=== PATIENT | male | born 1945 | race Caucasian/White ===

== ENCOUNTER 2017-08-03 20:20 | Observation (INO) | payer OTHER, MEDICARE, SELFPAY ==
[2016-12-24 11:34] VITALS: BMI 28.1
[2017-08-03 20:25] VITALS: BP 121/77; PULSE 67; RESP 18; TEMP 36.6; O2SAT 96; BMI 30.1
--- NOTE | 2017-08-03 21:11 | RAD_ITS ---
STUDY: X-RAY CHEST REASON FOR EXAM: Male, 72 years old. COPD. Decreased heart rate TECHNIQUE: Single AP portable view of the chest. COMPARISON: September 20, 2016 FINDINGS: There are monitoring devices. There are interstitial fibrotic changes of the lungs. Right perihilar opacity .There is pleural fibrotic scarring of the left costophrenic angle. Normal size heart. Normal mediastinum and tessa. Normal visualized pulmonary arteries. There is atherosclerotic tortuosity of the aortic arch and descending thoracic aorta. There are diffuse degenerative changes of the visualized thoracic spine. Stable healed rib fractures. There is no demonstrated abnormality of the visualized soft tissue structures of the upper abdomen. RAD/Chest 1 View (Portable) IMPRESSION: Fibrotic densities with right perihilar infiltrate. Electronically Signed: Jesús Rangel MD at 22:05 EST , Service support ,
--- NOTE | 2017-08-03 21:11 | EKG12_ITS ---
Test Reason : HR Blood Pressure : / mmHG Vent. Rate : 067 BPM Atrial Rate : 067 BPM P-R Int : 164 ms QRS Dur : 100 ms QT Int : 446 ms P-R-T Axes : 032 002 026 degrees QTc Int : 471 ms Normal sinus rhythm Normal ECG Confirmed by NIRMAL BUSH MD ([id number]), visual effects editor DELORES JONES ([id number]) on 08/09/2017 3:56:19 PM Referred By: Confirmed By:NIRMAL BUSH MD
[2017-08-03 21:20] LABS: Absolute Lymphocyte Count 1.52 X10^3/ul (0.83-4.51); Absolute Neutrophil Count 5.1 X10^3/uL (2.0-7.7); Basophil# 0.02 X10^3/uL; Basophil% 0.3 % (0-1); Eosinophil# 0.12 X10^3/uL; Eosinophils% 1.6 % (0-5); Hematocrit 37.3 % (40-54); Hemoglobin 12.3 g/dl (13.0-16.5); Lymphocyte # 1.52 X10^3/ul (4.0); Lymphocyte % 20.8 % (19-41); Mean Corpuscular Hgb 31.9 pg (27.0-32.0); Mean Corpuscular Volume 96.6 fL (80-94); Mean Platelet Vol. 9.9 fl (6.2-12.0); Monocyte# 0.51 X10^3/uL; Neutrophil # 5.12 X10^3/uL (2.7-7.7); Neutrophil % 70.2 % (47-70); POSITIVE COUNT NO; POSITIVE DIFFERENTIAL NO; POSITIVE MORPHOLOGY NO; Platelet Count 124 K/mm3 (150-450); RBC Distribution Width CV 13.9 % (11.6-14.6); RBC Distribution Width SD 48.4 fl (35.1-43.9); Red Blood Count 3.86 M/mm3 (4.6-6.2); White Blood Count 7.3 K/mm3 (4.4-11.0)
[2017-08-03 21:38] LABS: Anion Gap 7 (5-15); BUN 17 mg/dL (7-18); BUN/Creat Ratio 14.5 RATIO (10-20); Calcium,Total 8.9 mg/dL (8.5-10.1); Chloride 109 mmol/L (98-107); Creatinine, Serum 1.17 mg/dL (0.70-1.30); EST Glomerular Filtration Rate 65 mL/min (>60); Est Glom Filt Rate - Afr Amer 79 mL/min (>60); Estimated Creatinine Clearance 59.79 ml/min; Glucose 180 mg/dL (70-110); Magnesium 1.8 mg/dL (1.6-2.6); Potassium 4.2 mmol/L (3.5-5.1); Sodium Level 144 mmol/L (136-145)
--- NOTE | 2017-08-03 22:07 | ED.VISSUMM ---
- ER Visit Summary Date of Service: 08/03/17 Chief Complaint: Bradycardia History of Present Illness: The patient is a 72 M who has a history of lung cancer as well as A. fib. He has 5 cardiac stents and he sees Dr. Brady. Patient was feeling his normal self. He went to the bathroom and urinated standing up. He then shaved for about 10-15 minutes. This is a little bit longer than he is normally on his feet at a time. Patient came out of the bathroom and was very lightheaded. He needed assistance walking and eventually sat in a chair. His spouse put a heart rate/pulse oximetry on him his heart rate read 35. There is shocked by this number change the batteries and try different fingers. It eventually resolved. During this time he had no chest pain sweating or pale coloring. He was able to ambulate on his own to the car to come here. Patient takes amiodarone, 100 mg of metoprolol twice a day, Plavix and aspirin for his cardiac meds. Physical Examination: Afebrile vital signs are stable Gen: Well-nourished well-developed Head: Normocephalic atraumatic Eyes: Perrl EOMI ENT: TMs clear no rhinorrhea moist mucous membranes Neck: Supple no lymphadenopathy no JVD nontender CVS: Regular rate rhythm no murmurs normal S1-S2 Respiratory: No distress clear to auscultation bilaterally chest nontender Abdomen: Soft nontender nondistended normal bowel sounds no masses Back: Nontender Extremity: Nontender no edema Skin: Normal color no rash Neuro: alert orientated ?3 CN II-XII intact normal strength sensation reflexes gait cerebellar Psych: Normal affect normal mood Test Results: Hemoglobin 12.3. Magnesium 1.8. Normal potassium. Troponin less than 0.02. EKG sinus rhythm with a rate of 67. Chest x-ray negative. Emergency Department Course and Treatment: The patient has had no events on the monitor. I spoke with Dr. Newman for cardiology who would like the patient observed overnight. Impression: 1. Bradycardia This note was generated with [employer] dictation software. It may contain incorrect words, spelling, and punctuation that were not noted in review of the chart prior to signing ED Disposition - Plan for ED Patient: Chief Complaint: Dizziness Referrals: Rogelio Green DO [Primary Care Provider] -
[2017-08-03 22:36] VITALS: BP 113/70; PULSE 69; RESP 16; O2SAT 94
--- NOTE | 2017-08-03 22:46 | PCM.HP.STD ---
Problem List (1) Bradycardia Status: Acute (2) Lightheadedness Status: Acute History of Present Illness Date of Admission: 08/03/17 Chief Complaint: Bradycardia, lightheadedness The patient is a 72 year old M who was seen in the emergency room at [facility] after being brought in for evaluation of bradycardia at home. Patient has a pulse oximeter at home and his noticed that he was feeling lightheaded and tired, she took his pulse with the pulse oximeter and it read 35, she change the batteries in the pulse oximeter and even tried it on herself and it gave a different reading and she felt that the 35 reading was legitimate. Patient's and the patient stated that this went on for about 15 minutes with a pulse rate of approximately 35 and then it dea to 66. Patient denied any chest pain or shortness of breath, he denied any nausea or diaphoresis. Examination in the emergency room included an EKG which showed normal sinus rhythm at 67, no evidence of ischemic changes were noted. Patient had labs drawn, labs were unremarkable except for glucose of 180 and a hemoglobin of 12.3. On examination, heart rate and rhythm is regular with occasional ectopic beats-these corresponded to PACs on the monitor, lungs had scattered expiratory rhonchi bilaterally. Patient did not appear to be in distress. Cardiology was contacted by the emergency room physician and he advised admission of the patient for further observation. Patient will be placed in observation status on PCU for bradycardia, his metoprolol will be reduced to 50 mg twice daily at the advice of cardiology. Past Medical History Past Medical History (Chronic Problems): Chronic Problems Encephalopathy (Chronic) Small cell lung cancer (Chronic) History of coronary artery stent placement (Chronic) Coronary artery disease (Chronic) Status post stents. GERD (gastroesophageal reflux disease) (Chronic) Obesity (BMI 30-39.9) (Chronic) Smoking addiction (Chronic) HTN (hypertension) (Chronic) Allergies No Known Allergies Allergy (Verified 08/03/17 20:25) Home Medications: Ambulatory Orders Medication Instructions Recorded Aspirin E.C. [Ecotrin] 81 mg PO DAILY@0800 04/11/16 Simvastatin [Zocor] 20 mg PO QHS 04/11/16 Nitroglycerin [Nitrostat] 0.4 mg SUBLINGUAL PRN PRN 04/21/16 Amiodarone HCl [Cordarone] 200 mg PO DAILY 04/27/16 Metoprolol Tartrate [Lopressor 100 mg PO BID 06/22/16 (beta darius)] Albuterol Inhaler [Ventolin Hfa] 1 - 2 puff INHALATION Q4H PRN PRN 07/08/16 Multivit-Min/FA/Lycopen/Lutein 1 each PO DAILY 10/14/16 [Centrum Silver Tablet] Ranitidine HCl [Acid Milk Tester] 150 mg PO BID 10/14/16 Clopidogrel Bisulfate [Plavix] 75 mg PO DAILY 12/14/16 Surgical History: appendectomy, - - Cardiac stents. Psychiatric History: No pertinent psych hx Lives: Spouse/ Significant Other Smoking Status: Former smoker Tobacco Use: Non-smoker Alcohol: None Drugs: None - *Family History Maternal History Items: Cancer - Lung cancer Paternal History Items: Heart Disease Sibling History Items: Diabetes Review of Systems Constitutional: Denies: Anorexia, Chills, Fever, Night Sweats, Malaise, Weakness, Weight Change, Fatigue Eyes: Denies: Blurred vision, Cataracts, Conjunctivae Inflammation, Double vision, Drainage HEENT: Denies: Difficulty Swallowing, Dysphasia, Ear Pain, Eye Pain, Hard of Hearing, Head Aches, Hearing Changes, Nasal bleeding, Nasal Congestion, Post Nasal Drip Cardiovascular: Reports: Light Headedness. Denies: Chest Pain, Claudication, Chest Pressure, Chest Tightness, Edema, Heaviness, Orthopnea, Palpitations, Paroxysmal Noc. Dyspnea, Syncope Respiratory: Denies: Cough, Hemoptysis, Pleuritic Pain, Shortness of Breath, Shortness of breath at rest, Shortness of breath upon exertion, Sputum production, Wheezing Gastrointestinal: Denies: Abdominal Pain, Constipation, Diarrhea, Hematemesis, Hematochezia, Nausea, Melena, Vomiting Genitourinary: Denies: Dysuria, Frequency, Hematuria, Hesitancy, Incontinence, Nocturia, Urgency Musculoskeletal: Denies: Back Pain, Foot Pain, Hand Pain, Joint Pain, Joint stiffness, Joint swelling, Joint Tenderness, Leg Pain, Neck Pain, Shoulder Pain Skin: Denies: Dryness, Jaundice, Pruritis, Rash Neurological: Denies: Blurred vision, Double vision, Change in Speech, Slurred speech, Difficulty swallowing, Focal weakness, Headaches, Incoordination, Numbness, Tingling Psychiatric: Denies: Anxiety, Depression, Homicidal Ideations, Suicidal Ideations Endocrine: Reports: Hx of Irradiation - Brain radiation for small cell carcinoma. Denies: Change in Body Habitus, Heat/ Cold Intolerance, Polydipsia, Polyuria Hematologic/ Lymphatic: Denies: Adenopathy, Easy Bruising, Easy Bleeding, Petechiae, Purpura VTE Information - Inpt Only VTE Present on Admission: No VTE Mechan Device Prophylaxis: None VTE Pharm Prophylaxis ordered?: Yes Patient Problems: Active and Suspected Problems Bradycardia (Acute) Lightheadedness (Acute) - Physical Exam General: Alert, Oriented x3, Cooperative, No apparent distress, Well developed, Well nourished HEENT: Atraumatic, PERRLA, EOMI, Normocephalic Oral: Moist Mucosa Neck: Supple, No JVD, Negative Carotid Bruits, No Nuchal Rigidity, Trachea Midline, Thyroid Normal Size and Texture Lungs: Normal air movement, No wheeze, No rales, Rhonchi - Scattered expiratory rhonchi are noted bilaterally Cardiovascular: Regular rate, Regular Rhythm, No murmurs, PMI Normal, No rub noted, No Gallop, - - Occasional PACs are noted Abdomen: Bowel Sounds Present, Soft, Non Tender, Non-Distended, No hernias noted Extremities: No clubbing, No cyanosis, No edema, Capillary Refill Less than 3 Seconds Skin: No rashes, No breakdown Musculoskeletal: No Tenderness to Palpation of Joints or Extremities Neurological: Cranial nerves II-XII grossly intact, Neuro grossly intact, Sensory exam intact to light touch and pain, Coordination normal Psych/Mental Status: Normal Affect, Appropriate, Alert and oriented to time, place, person, mood and affect Vital Signs Temp Pulse Resp BP Pulse Ox 98 F 69 16 113/70 94 08/03/17 20:25 08/03/17 22:36 08/03/17 22:36 08/03/17 22:36 08/03/17 22:36 Oxygen Delivery Method Room Air Assessment/Plan Active and Suspected Problems Bradycardia (Acute) Lightheadedness (Acute) #1 episodic bradycardia-etiology unknown, could be secondary to beta-darius usage, patient will be placed into observation status on PCU, he will be monitored on telemetry, his metoprolol dosage will be reduced, he will be seen in consultation by cardiology. I do not think the patient needs cardiac enzymes cycled, I do not think he needs an echocardiogram. #2 coronary artery disease-stable #3 PACs-patient and patient's state that he has had a history of atrial fibrillation in the past, he is not on any direct anticoagulants or Coumadin, states he was on Eliquis for a time before he had his stents put in, patient follows regularly with Dr. 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
[2017-08-03 23:10] VITALS: BMI 30.3
[2017-08-03 23:20] VITALS: BP 109/73; PULSE 72; RESP 16; TEMP 36.7; O2SAT 94
[2017-08-03 23:21] LABS: Bedside Glucose 132 mg/dL (70-110)
[2017-08-03 23:33] VITALS: PULSE 68
[2017-08-04] VITALS (13 sets, daily range): BP systolic 98–117; BP diastolic 52–82; PULSE 64–77; RESP 14–16; TEMP 36.9–37.1; O2SAT 96–98
[2017-08-04 07:36] LABS: Bedside Glucose 109 mg/dL (70-110)
[2017-08-04] MEDS: Famotidine 20 MG Tablet PO ×2 (10:00→21:16)
[2017-08-04] MEDS: Amiodarone 200 MG Tablet PO (10:00)
[2017-08-04] MEDS: Metoprolol Tartrate 50 MG Tablet PO ×2 (10:00→21:16)
[2017-08-04] MEDS: Clopidogrel Bisulfate 75 MG Tablet PO (10:00)
[2017-08-04] MEDS: Aspirin E.C. 81 MG Tablet PO (10:00)
[2017-08-04] MEDS: Heparin Injection 5,000 UNITS/ML Syringe 5000 UNITS SC ×2 (10:01→21:16)
[2017-08-04 11:51] LABS: Bedside Glucose 187 mg/dL (70-110)
--- NOTE | 2017-08-04 15:31 | PCM.PROGNOTE ---
Patient Problems: Active and Suspected Problems Bradycardia (Acute) Lightheadedness (Acute) Subjective: Pt reports that he came in because he checked his pulse at home and it was in the thirties. He thinks he may have had some lightheadedness at the time. Currently none. He has not had chest pain, tightness, pressure, palpitations, nausea, diaphoresis, or SOB. He is resting comfortably in bed with no complaints. - Physical Exam General: Alert, Oriented x3, Cooperative HEENT: Atraumatic, PERRLA, EOMI, Normocephalic Neck: Supple, No JVD, Negative Carotid Bruits Lungs: Clear to auscultation, Normal air movement Cardiovascular: Regular rate, No murmurs Abdomen: Bowel Sounds Present, Soft, Non Tender Extremities: No edema, Capillary Refill Less than 3 Seconds Skin: No rashes, No breakdown Musculoskeletal: No Tenderness to Palpation of Joints or Extremities Neurological: Cranial nerves II-XII grossly intact Psych/Mental Status: Normal Affect, Appropriate, Alert and oriented to time, place, person, mood and affect Vital Signs Temp Pulse Resp BP Pulse Ox 98.4 F 66 14 113/68 96 08/04/17 15:10 08/04/17 15:10 08/04/17 15:10 08/04/17 15:10 08/04/17 15:10 Oxygen Delivery Method Room Air Weight: 95.8 kg Body Mass Index (BMI) 30.3 Intake and Output for Last 24 Hours 08/02/17 08/03/17 08/04/17 23:59 23:59 23:59 Intake Total 360 / 360 Output Total 0 / 0 Balance 360 / 360 POC Glucose 08/04/17 08/04/17 08/03/17 11:47 07:29 23:17 POC Glucose 187 H 109 132 H Assessment/Plan Active and Suspected Problems Bradycardia (Acute) Lightheadedness (Acute) 1. Bradycardia - improved with decreased BB dose. Cardiology consult is pending. 2. PAF - not on OAC, on amio and BB 3. CAD - continue home meds, he reports 5 prior stents. On asa/plavix 4. COPD with chronic hypoxic respiratory failure - clear lungs, no resp complaints, uses 2 lpm O2 at night. 6. PMHx small cell lung cancer, last treated x 1 year ago 6. Underlying weakness in legs 2/2 radiation to the brain for above. 7. Hyperglycemia - check a1c, with cardiac hx this should be treated aggressively. DVT ppx: heparin DC planning: DC when ok per cardiology. This patient was seen by Carlin Ruiz PA-C under the supervision of Doctor Gardner.
[2017-08-04 16:21] LABS: Bedside Glucose 123 mg/dL (70-110)
[2017-08-04 16:57] LABS: Hemoglobin A1c 5.9 % (4.2-6.3)
--- NOTE | 2017-08-04 18:52 | PCM.CONS.C ---
Problem List (1) Bradycardia Status: Acute (2) Atrial fibrillation Status: Chronic Qualifiers: Atrial fibrillation type: paroxysmal Qualified Code(s): I48.0 - Paroxysmal atrial fibrillation (3) Coronary artery disease Status: Chronic Qualifiers: Coronary Disease-Associated Artery/Lesion type: [place] artery [place] vs. transplanted heart: [place] heart Associated angina: without angina Qualified Code(s): I25.10 - Atherosclerotic heart disease of [place] coronary artery without angina pectoris Comment: Status post stents. (4) History of coronary artery stent placement Status: Chronic (5) HLD (hyperlipidemia) Status: Chronic Qualifiers: Hyperlipidemia type: unspecified Qualified Code(s): E78.5 - Hyperlipidemia, unspecified (6) HTN (hypertension) Status: Chronic Qualifiers: Hypertension type: essential hypertension Qualified Code(s): I10 - Essential (primary) hypertension (7) COPD (chronic obstructive pulmonary disease) Status: Chronic (8) Small cell lung cancer Status: Chronic Qualifiers: Laterality: right Qualified Code(s): C34.91 - Malignant neoplasm of unspecified part of right bronchus or lung Reason for Consult Date of Consultation: 08/04/17 History of Present Illness: The patient is a 72 year old white male with a past cardiovascular history which is included underlying paroxysmal atrial fibrillation, CAD, status post previous PTCA/stent to the LAD, diagonal branch, and RCA (2010 at [facility]), and status post PTCA/stent/BETO to the diagonal branch at [facility] (2017), hyperlipidemia, hypertension, COPD, superimposed upon lung carcinoma who now presents for evaluation of bradycardia. The patient states that he had been feeling fine at home. He has denied ongoing symptoms of angina pectoris or symptoms of acute CHF/pulmonary edema. He denies any ongoing palpitations, rapid heart rate sensations, near syncope or syncope. He states that he does have intermittent wheezing which improves with his respiratory therapy. He does sleep a great deal according to his spouse. Yesterday evening she noted that he seemed somewhat off balance . She was checking his vital signs. She noted his heart rate appeared to be in the 30-40 bpm range. He subsequently was up and ambulating and his heart rate appeared to improve. However upon resting it returned to the 30-40 bpm range. He denies any clear-cut symptoms associated with this. He was brought to the [facility] emergency department for evaluation. Based upon his evaluation there was no definitive bradycardia reported. He was noted to be in sinus rhythm with premature atrial complexes. His troponin I level was negative. His ECG demonstrated sinus rhythm with poor R-wave progression with no acute ECG changes. He was subsequently placed in the PCU for further evaluation and care. His medications were adjusted during this time to decrease the dose of his beta-darius therapy. He has remained in sinus rhythm with ventricular rates in the 60s. He denies any ongoing acute symptoms. [] Past Medical History Allergies/Adverse Reactions: Allergies No Known Allergies Allergy (Verified 08/03/17 20:25) Home Medications: Ambulatory Orders Medication Instructions Recorded Aspirin E.C. [Ecotrin] 81 mg PO DAILY@0800 04/11/16 Simvastatin [Zocor] 20 mg PO QHS 04/11/16 Nitroglycerin [Nitrostat] 0.4 mg SUBLINGUAL PRN PRN 04/21/16 Amiodarone HCl [Cordarone] 200 mg PO DAILY 04/27/16 Metoprolol Tartrate [Lopressor 100 mg PO BID 06/22/16 (beta darius)] Albuterol Inhaler [Ventolin Hfa] 1 - 2 puff INHALATION Q4H PRN PRN 07/08/16 Multivit-Min/FA/Lycopen/Lutein 1 each PO DAILY 10/14/16 [Centrum Silver Tablet] Ranitidine HCl [Acid Solder Level[employer]] 150 mg PO BID 10/14/16 Clopidogrel Bisulfate [Plavix] 75 mg PO DAILY 12/14/16 Past Medical History (Chronic Problems): Chronic Problems Encephalopathy (Chronic) Atrial fibrillation (Chronic) HLD (hyperlipidemia) (Chronic) Small cell lung cancer (Chronic) History of coronary artery stent placement (Chronic) Coronary artery disease (Chronic) Status post stents. GERD (gastroesophageal reflux disease) (Chronic) Obesity (BMI 30-39.9) (Chronic) Smoking addiction (Chronic) COPD (chronic obstructive pulmonary disease) (Chronic) HTN (hypertension) (Chronic) Surgical History: appendectomy, - - Cardiac stents. Psychiatric History: No pertinent psych hx - *Family History Maternal History Items: Cancer - Lung cancer Paternal History Items: Heart Disease Sibling History Items: Diabetes Lives: Spouse/ Significant Other Smoking Status: Former smoker Tobacco Use: Non-smoker Alcohol: None Drugs: None Review of Systems - Review of Systems General: Denies: Fever, Night Sweats, Fatigue Cardiovascular: Denies: Chest Discomfort, Shortness of Breath, Orthopnea, PND, Peripheral Edema, Palpitations, Lightheadedness, Dizziness, Near Syncope, Syncope Respiratory: Reports: Wheezing. Denies: Cough, Sputum Production, Hemoptysis Gastrointestinal: Denies: Hematemesis, Hematochezia, Melena Genitourinary: Denies: Dysuria, Hematuria Skin: Denies: Rash Subjectve: This is a 72-year-old white male who appears to be resting comfortably at the moment in no acute distress. Objective: Vital Signs Temp Pulse Resp BP Pulse Ox 98.4 F 66 14 113/68 96 08/04/17 15:10 08/04/17 15:10 08/04/17 15:10 08/04/17 15:10 08/04/17 15:10 Oxygen Delivery Method Room Air Weight: 211 lb 3.245 oz Body Mass Index (BMI) 30.3 Intake and Output for Last 24 Hours 08/02/17 08/03/17 08/04/17 23:59 23:59 23:59 Intake Total 720 / 720 Output Total 0 / 0 Balance 720 / 720 General: Awake, Alert, Oriented x 3, Cooperative, No Acute Distress Neck: No JVD Lungs: Inspiratory Wheezes - Manuel, Expiratory Wheezes-Manuel Cardiovascular: Regular Rhythm, Premature Ectopic Beats, Normal S1, Normal S2 Abdomen: Bowel Sounds Present, Soft, Non Tender Extremities: No Cyanosis, No Clubbing, No edema Rhythm: Sinus rhythm; PACs EKG: As noted above ECHO: 04/13/2016: Left ventricle: Normal with an LVEF of 65% Stress Test: 11/26/2015: Stress nuclear imaging study: Considered within normal limits with a gated LVEF of 74% Cardiac Cath: 04/14/2016: Left ventricle normal with an LVEF of 60%; left main coronary artery patent with 50% stenosis; LAD with proximal to mid stented segment occluded; diagonal branch with proximal to mid stented segment with pre-stent 85% stenosis; LCx with minimal luminal irregularities; intermediate ramus with proximal 25% stenosis; RCA with a large dominant vessel with a proximal stented being patent with minimal luminal irregularities PCI: As noted above CXR: Preliminary evaluation: Interstitial fibrotic type changes: Please see official report Assessment/Plan 1. Bradycardia The patient has been reported as being bradycardic. There is no definitive documentation of this. This is per the patient's home O2 saturation monitor/heart rate recorder, etc. If the patient was truly bradycardic the etiology is uncertain. There is concern as to whether this may be related to a combination of his medications that have been adjusted over time. However other etiologies cannot be excluded. At the present time, status post decrease of his beta-darius therapy, his cardiac rate and rhythm remained sinus rhythm with ventricular rates within acceptable ranges. His cardiac enzymes have been negative thus far. He is ECG is demonstrated no other new acute changes. At the present time he will continue to be monitored. He will continue his adjusted/decreased beta-darius therapy. If he has no other acute findings then perhaps he will be able to be released home soon on his adjusted dose medication with continued outpatient follow-up of his rate and rhythm. 2. Paroxysmal atrial fibrillation The patient has a history of paroxysmal atrial fibrillation. At the moment he appears to be stable in sinus rhythm. He will continue his current medical management and follow-up. Of note, he has been on anticoagulant therapy in the past. However the present time, based upon a variety of concerns, he has not been continued on anticoagulant therapy. He has remained on antiplatelet therapy. 3. CAD status post previous PTCA/stent The patient is without symptoms of ongoing angina pectoris. His cardiac enzyme was negative and his ECG demonstrates no new acute changes. He will need continued risk factor modification and medical management as deemed appropriate. 4. Hyperlipidemia He will continue medical therapy with adjustment as deemed appropriate. 5. Hypertension His blood pressures will need to be monitored as his medications are adjusted. If they increase he may need additional nonrate limiting antihypertensive therapy adjustment. 6. COPD He does have bilateral inspiratory and expiratory wheezing at this time. He will continue under the care of internal medicine and pulmonology for his pulmonary disease process. 7. Lung carcinoma He does have a history of lung carcinoma. He has continued under the care of multiple physicians for this. Comment: The above was discussed with the patient and his spouse. This note was generated with [employer] software. Every effort was made to ensure accuracy, however, computerized refrigeration installer mistakes may persist.
--- NOTE | 2017-08-04 19:03 | CON.PCM_ITS ---
Problem List (1) Bradycardia Status: Acute (2) Atrial fibrillation Status: Chronic Qualifiers: Atrial fibrillation type: paroxysmal Qualified Code(s): I48.0 - Paroxysmal atrial fibrillation (3) Coronary artery disease Status: Chronic Qualifiers: Coronary Disease-Associated Artery/Lesion type: [place] artery [place] vs. transplanted heart: [place] heart Associated angina: without angina Qualified Code(s): I25.10 - Atherosclerotic heart disease of [place] coronary artery without angina pectoris Comment: Status post stents. (4) History of coronary artery stent placement Status: Chronic (5) HLD (hyperlipidemia) Status: Chronic Qualifiers: Hyperlipidemia type: unspecified Qualified Code(s): E78.5 - Hyperlipidemia , unspecified (6) HTN (hypertension) Status: Chronic Qualifiers: Hypertension type: essential hypertension Qualified Code(s): I10 - Essential (primary) hypertension (7) COPD (chronic obstructive pulmonary disease) Status: Chronic (8) Small cell lung cancer Status: Chronic Qualifiers: Laterality: right Qualified Code(s): C34.91 - Malignant neoplasm of unspecified part of right bronchus or lung Reason for Consult Date of Consultation: 08/04/17 History of Present Illness: The patient is a 72 year old white male with a past cardiovascular history which is included underlying paroxysmal atrial fibrillation, CAD, status post previous PTCA/stent to the LAD, diagonal branch, and RCA (2010 at [facility]), and status post PTCA/stent/BETO to the diagonal branch at [facility] (2017), hyperlipidemia, hypertension, COPD, superimposed upon lung carcinoma who now presents for evaluation of bradycardia. The patient states that he had been feeling fine at home. He has denied ongoing symptoms of angina pectoris or symptoms of acute CHF/pulmonary edema. He denies any ongoing palpitations, rapid heart rate sensations, near syncope or syncope. He states that he does have intermittent wheezing which improves with his respiratory therapy. He does sleep a great deal according to his spouse. Yesterday evening she noted that he seemed somewhat off balance . She was checking his vital signs. She noted his heart rate appeared to be in the 30-40 bpm range. He subsequently was up and ambulating and his heart rate appeared to improve. However upon resting it returned to the 30-40 bpm range. He denies any clear-cut symptoms associated with this. He was brought to the [facility] emergency department for evaluation. Based upon his evaluation there was no definitive bradycardia reported. He was noted to be in sinus rhythm with premature atrial complexes. His troponin I level was negative. His ECG demonstrated sinus rhythm with poor R-wave progression with no acute ECG changes. He was subsequently placed in the PCU for further evaluation and care. His medications were adjusted during this time to decrease the dose of his beta-darius therapy. He has remained in sinus rhythm with ventricular rates in the 60s. He denies any ongoing acute symptoms. [] Past Medical History Allergies/Adverse Reactions: Allergies No Known Allergies Allergy (Verified 08/03/17 20:25) Home Medications: Ambulatory Orders Medication Instructions Recorded Aspirin E.C. [Ecotrin] 81 mg PO DAILY@0800 04/11/16 Simvastatin [Zocor] 20 mg PO QHS 04/11/16 Nitroglycerin [Nitrostat] 0.4 mg SUBLINGUAL PRN PRN 04/21/16 Amiodarone HCl [Cordarone] 200 mg PO DAILY 04/27/16 Metoprolol Tartrate [Lopressor 100 mg PO BID 06/22/16 (beta darius)] Albuterol Inhaler [Ventolin Hfa] 1 - 2 puff INHALATION Q4H PRN PRN 07/08/16 Multivit-Min/FA/Lycopen/Lutein 1 each PO DAILY 10/14/16 [Centrum Silver Tablet] Ranitidine HCl [Acid Green Jobs Trainer] 150 mg PO BID 10/14/16 Clopidogrel Bisulfate [Plavix] 75 mg PO DAILY 12/14/16 Past Medical History (Chronic Problems): Chronic Problems Encephalopathy (Chronic) Atrial fibrillation (Chronic) HLD (hyperlipidemia) (Chronic) Small cell lung cancer (Chronic) History of coronary artery stent placement (Chronic) Coronary artery disease (Chronic) Status post stents. GERD (gastroesophageal reflux disease) (Chronic) Obesity (BMI 30-39.9) (Chronic) Smoking addiction (Chronic) COPD (chronic obstructive pulmonary disease) (Chronic) HTN (hypertension) (Chronic) Surgical History: appendectomy, - - Cardiac stents. Psychiatric History: No pertinent psych hx - *Family History Maternal History Items: Cancer - Lung cancer Paternal History Items: Heart Disease Sibling History Items: Diabetes Lives: Spouse/ Significant Other Smoking Status: Former smoker Tobacco Use: Non-smoker Alcohol: None Drugs: None Review of Systems - Review of Systems General: Denies: Fever, Night Sweats, Fatigue Cardiovascular: Denies: Chest Discomfort, Shortness of Breath, Orthopnea, PND, Peripheral Edema, Palpitations, Lightheadedness, Dizziness, Near Syncope, Syncope Respiratory: Reports: Wheezing. Denies: Cough, Sputum Production, Hemoptysis Gastrointestinal: Denies: Hematemesis, Hematochezia, Melena Genitourinary: Denies: Dysuria, Hematuria Skin: Denies: Rash Subjectve: This is a 72-year-old white male who appears to be resting comfortably at the moment in no acute distress. Objective: Vital Signs Temp Pulse Resp BP Pulse Ox 98.4 F 66 14 113/68 96 08/04/17 15:10 08/04/17 15:10 08/04/17 15:10 08/04/17 15:10 08/04/17 15:10 Oxygen Delivery Method Room Air Weight: 211 lb 3.245 oz Body Mass Index (BMI) 30.3 Intake and Output for Last 24 Hours 08/02/17 08/03/17 08/04/17 23:59 23:59 23:59 Intake Total 720 / 720 Output Total 0 / 0 Balance 720 / 720 General: Awake, Alert, Oriented x 3, Cooperative, No Acute Distress Neck: No JVD Lungs: Inspiratory Wheezes - Manuel, Expiratory Wheezes-Manuel Cardiovascular: Regular Rhythm, Premature Ectopic Beats, Normal S1, Normal S2 Abdomen: Bowel Sounds Present, Soft, Non Tender Extremities: No Cyanosis, No Clubbing, No edema Rhythm: Sinus rhythm; PACs EKG: As noted above ECHO: 04/13/2016: Left ventricle: Normal with an LVEF of 65% Stress Test: 11/26/2015: Stress nuclear imaging study: Considered within normal limits with a gated LVEF of 74% Cardiac Cath: 04/14/2016: Left ventricle normal with an LVEF of 60%; left main coronary artery patent with 50% stenosis; LAD with proximal to mid stented segment occluded; diagonal branch with proximal to mid stented segment with pre- stent 85% stenosis; LCx with minimal luminal irregularities; intermediate ramus with proximal 25% stenosis; RCA with a large dominant vessel with a proximal stented being patent with minimal luminal irregularities PCI: As noted above CXR: Preliminary evaluation: Interstitial fibrotic type changes: Please see official report Assessment/Plan 1. Bradycardia The patient has been reported as being bradycardic. There is no definitive documentation of this. This is per the patient's home O2 saturation monitor/ heart rate recorder, etc. If the patient was truly bradycardic the etiology is uncertain. There is concern as to whether this may be related to a combination of his medications that have been adjusted over time. However other etiologies cannot be excluded. At the present time, status post decrease of his beta-darius therapy, his cardiac rate and rhythm remained sinus rhythm with ventricular rates within acceptable ranges. His cardiac enzymes have been negative thus far. He is ECG is demonstrated no other new acute changes. At the present time he will continue to be monitored. He will continue his adjusted/decreased beta-darius therapy. If he has no other acute findings then perhaps he will be able to be released home soon on his adjusted dose medication with continued outpatient follow-up of his rate and rhythm. 2. Paroxysmal atrial fibrillation The patient has a history of paroxysmal atrial fibrillation. At the moment he appears to be stable in sinus rhythm. He will continue his current medical management and follow-up. Of note, he has been on anticoagulant therapy in the past. However the present time, based upon a variety of concerns, he has not been continued on anticoagulant therapy. He has remained on antiplatelet therapy. 3. CAD status post previous PTCA/stent The patient is without symptoms of ongoing angina pectoris. His cardiac enzyme was negative and his ECG demonstrates no new acute changes. He will need continued risk factor modification and medical management as deemed appropriate. 4. Hyperlipidemia He will continue medical therapy with adjustment as deemed appropriate. 5. Hypertension His blood pressures will need to be monitored as his medications are adjusted. If they increase he may need additional nonrate limiting antihypertensive therapy adjustment. 6. COPD He does have bilateral inspiratory and expiratory wheezing at this time. He will continue under the care of internal medicine and pulmonology for his pulmonary disease process. 7. Lung carcinoma He does have a history of lung carcinoma. He has continued under the care of multiple physicians for this. Comment: The above was discussed with the patient and his spouse. This note was generated with Myndnetation software. Every effort was made to ensure accuracy, however, computerized mobile homes repairer mistakes may persist.
[2017-08-04] MEDS: 0.9% NaCl Peripheral Flush Adult/Peds IV (20:32)
[2017-08-05] VITALS (7 sets, daily range): BP systolic 103–105; BP diastolic 45–63; PULSE 63–75; RESP 14–16; TEMP 37; O2SAT 95–96
--- NOTE | 2017-08-05 05:55 | EKG12_ITS ---
Test Reason : AM EKG Blood Pressure : / mmHG Vent. Rate : 070 BPM Atrial Rate : 062 BPM P-R Int : 174 ms QRS Dur : 100 ms QT Int : 436 ms P-R-T Axes : 036 003 030 degrees QTc Int : 470 ms Sinus rhythm with Premature supraventricular complexes Otherwise normal ECG When compared with ECG of 03-AUG-2017 20:37, MANUAL COMPARISON REQUIRED, DATA IS UNCONFIRMED Confirmed by ELEAZAR RODRIGUEZ, NIRMAL ([id number]), assistant film editor DELORES JONES ([id number]) on 08/10/2017 8:48:33 AM Referred By: MAI Confirmed By:NIRMAL BUSH MD
[2017-08-05 07:26] LABS: Bedside Glucose 115 mg/dL (70-110)
[2017-08-05] MEDS: Amiodarone 200 MG Tablet PO (07:41)
[2017-08-05] MEDS: Aspirin E.C. 81 MG Tablet PO (07:41)
[2017-08-05] MEDS: Famotidine 20 MG Tablet PO (09:16)
[2017-08-05] MEDS: Metoprolol Tartrate 50 MG Tablet PO (09:16)
[2017-08-05] MEDS: Clopidogrel Bisulfate 75 MG Tablet PO (09:16)
[2017-08-05] MEDS: Heparin Injection 5,000 UNITS/ML Syringe 5000 UNITS SC (09:16)
[2017-08-05 11:25] LABS: Bedside Glucose 138 mg/dL (70-110)
--- NOTE | 2017-08-05 11:58 | DCINST_ITS ---
- Discharge Diagnoses Current Active Problems: Current Active and Chronic Problems Bradycardia (Acute) Lightheadedness (Acute) Bradycardia (Acute) Atrial fibrillation (Chronic) HLD (hyperlipidemia) (Chronic) You will use the following diet at home:: Cardiac Discharge Activity: Return to Normal Activity Call your doctor if you observe: Fever of 101 or Higher, Numbness or Tingling, Shortness of breath, Dizziness, Fainting spells, Chest pain, Increased palpitations (irregular heartbeat) Allergies/Adverse Reactions: Allergies No Known Allergies Allergy (Verified 08/03/17 20:25) Medications to take at Discharge Aspirin E.C. [Ecotrin] 81 mg PO DAILY@0800 04/11/16 Simvastatin [Zocor] 20 mg PO QHS 04/11/16 Nitroglycerin [Nitrostat] 0.4 mg SUBLINGUAL PRN PRN 04/21/16 Amiodarone HCl [Cordarone] 200 mg PO DAILY 04/27/16 Albuterol Inhaler [Ventolin Hfa] 1 - 2 puff INHALATION Q4H PRN PRN 07/08/16 Multivit-Min/FA/Lycopen/Lutein [Centrum Silver Tablet] 1 each PO DAILY 10/14/16 Ranitidine HCl [Acid Ceramics Artist] 150 mg PO BID 10/14/16 Clopidogrel Bisulfate [Plavix] 75 mg PO DAILY 12/14/16 Metoprolol Tartrate [Lopressor (beta darius)] 50 mg PO BID #60 tab 08/05/17 The following prescriptions were given: Metoprolol Tartrate [Lopressor (beta darius)] 50 mg PO BID #60 tab Primary Care Physician: Rogelio Green DO [Primary Care Provider] - Please follow up with your Primary Care Physician in: 1-2 Weeks Please Follow Up With: David Brady MD When: As scheduled Proposed Discharge Date: 08/05/17
--- NOTE | 2017-08-05 12:54 | PCM.PN.CARD ---
Subjectve: The patient is awake and alert. He has no acute symptoms with respect to chest discomfort, worsening shortness of breath/dyspnea, or palpitations. Objective: Vital Signs Temp Pulse Resp BP Pulse Ox 98.6 F 75 16 103/45 L 95 08/05/17 09:15 08/05/17 11:00 08/05/17 09:15 08/05/17 09:15 08/05/17 09:15 Oxygen Delivery Method Room Air Weight: 211 lb 3.245 oz Body Mass Index (BMI) 30.3 Intake and Output for Last 24 Hours 08/03/17 08/04/17 08/05/17 23:59 23:59 23:59 Intake Total 780 / 780 360 / 360 Output Total 0 / 0 Balance 780 / 780 360 / 360 General: Awake, Alert, Oriented x 3, Cooperative, No Acute Distress Neck: No JVD Lungs: - - Positive bilateral inspiratory/expiratory wheezing Cardiovascular: Regular Rhythm, Premature Ectopic Beats, Normal S1, Normal S2 Abdomen: Bowel Sounds Present, Soft, Non Tender Extremities: No edema Rhythm: Sinus rhythm; PACs EKG: Sinus rhythm; PACs: No acute ECG change Assessment/Plan 1. Bradycardia The patient has been reported as being bradycardic. There is no definitive documentation of this. This is per the patient's home O2 saturation monitor/heart rate recorder, etc. If the patient was truly bradycardic the etiology is uncertain. There is concern as to whether this may be related to a combination of his medications that have been adjusted over time. However other etiologies cannot be excluded. At the present time, status post decrease of his beta-darius therapy, his cardiac rate and rhythm remained sinus rhythm with ventricular rates within acceptable ranges. His cardiac enzymes have been negative thus far. He is ECG is demonstrated no other new acute changes. At the present time he will continue his decreased dose beta-darius therapy. It was not felt he required further cardiac diagnostic studies or therapeutic intervention. He will continue to monitor for any concerns and continue with outpatient cardiovascular follow-up. 2. Paroxysmal atrial fibrillation The patient has a history of paroxysmal atrial fibrillation. At the moment he appears to be stable in sinus rhythm. He will continue his current medical management and follow-up. Of note, he has been on anticoagulant therapy in the past. However the present time, based upon a variety of concerns, he has not been continued on anticoagulant therapy. He has remained on antiplatelet therapy. 3. CAD status post previous PTCA/stent The patient is without symptoms of ongoing angina pectoris. His cardiac enzyme was negative and his ECG demonstrates no new acute changes. He will need continued risk factor modification and medical management as deemed appropriate. 4. Hyperlipidemia He will continue medical therapy with adjustment as deemed appropriate. 5. Hypertension His blood pressures will need to be monitored as his medications are adjusted. If they increase he may need additional nonrate limiting antihypertensive therapy adjustment. 6. COPD He does have bilateral inspiratory and expiratory wheezing at this time. He will continue under the care of internal medicine and pulmonology for his pulmonary disease process. 7. Lung carcinoma He does have a history of lung carcinoma. He has continued under the care of multiple physicians for this. Comment: The above was discussed with the patient and the [facility] staff. This note was generated with AdTotum Dictation software. Every effort was made to ensure accuracy, however, computerized seasonal greenery bundler mistakes may persist.
--- NOTE | 2017-08-05 12:57 | PN.CARD_ITS ---
Subjectve: The patient is awake and alert. He has no acute symptoms with respect to chest discomfort, worsening shortness of breath/dyspnea, or palpitations. Objective: Vital Signs Temp Pulse Resp BP Pulse Ox 98.6 F 75 16 103/45 L 95 08/05/17 09:15 08/05/17 11:00 08/05/17 09:15 08/05/17 09:15 08/05/17 09:15 Oxygen Delivery Method Room Air Weight: 211 lb 3.245 oz Body Mass Index (BMI) 30.3 Intake and Output for Last 24 Hours 08/03/17 08/04/17 08/05/17 23:59 23:59 23:59 Intake Total 780 / 780 360 / 360 Output Total 0 / 0 Balance 780 / 780 360 / 360 General: Awake, Alert, Oriented x 3, Cooperative, No Acute Distress Neck: No JVD Lungs: - - Positive bilateral inspiratory/expiratory wheezing Cardiovascular: Regular Rhythm, Premature Ectopic Beats, Normal S1, Normal S2 Abdomen: Bowel Sounds Present, Soft, Non Tender Extremities: No edema Rhythm: Sinus rhythm; PACs EKG: Sinus rhythm; PACs: No acute ECG change Assessment/Plan 1. Bradycardia The patient has been reported as being bradycardic. There is no definitive documentation of this. This is per the patient's home O2 saturation monitor/ heart rate recorder, etc. If the patient was truly bradycardic the etiology is uncertain. There is concern as to whether this may be related to a combination of his medications that have been adjusted over time. However other etiologies cannot be excluded. At the present time, status post decrease of his beta-darius therapy, his cardiac rate and rhythm remained sinus rhythm with ventricular rates within acceptable ranges. His cardiac enzymes have been negative thus far. He is ECG is demonstrated no other new acute changes. At the present time he will continue his decreased dose beta-darius therapy. It was not felt he required further cardiac diagnostic studies or therapeutic intervention. He will continue to monitor for any concerns and continue with outpatient cardiovascular follow-up. 2. Paroxysmal atrial fibrillation The patient has a history of paroxysmal atrial fibrillation. At the moment he appears to be stable in sinus rhythm. He will continue his current medical management and follow-up. Of note, he has been on anticoagulant therapy in the past. However the present time, based upon a variety of concerns, he has not been continued on anticoagulant therapy. He has remained on antiplatelet therapy. 3. CAD status post previous PTCA/stent The patient is without symptoms of ongoing angina pectoris. His cardiac enzyme was negative and his ECG demonstrates no new acute changes. He will need continued risk factor modification and medical management as deemed appropriate. 4. Hyperlipidemia He will continue medical therapy with adjustment as deemed appropriate. 5. Hypertension His blood pressures will need to be monitored as his medications are adjusted. If they increase he may need additional nonrate limiting antihypertensive therapy adjustment. 6. COPD He does have bilateral inspiratory and expiratory wheezing at this time. He will continue under the care of internal medicine and pulmonology for his pulmonary disease process. 7. Lung carcinoma He does have a history of lung carcinoma. He has continued under the care of multiple physicians for this. Comment: The above was discussed with the patient and the [facility] staff. This note was generated with WeLink Dictation software. Every effort was made to ensure accuracy, however, computerized legal billing specialist mistakes may persist.
--- NOTE | 2017-08-05 13:37 | PCM.DC.SUM ---
Discharge Date and Diagnosis Date of Admission: 08/03/17 Date of Discharge: 08/05/17 - Primary Discharge Diagnosis Active and Suspected Problems 1. Episodic bradycardia-etiology unknown. - Secondary Discharge Diagnosis Chronic Problems Encephalopathy (Chronic) Atrial fibrillation (Chronic) HLD (hyperlipidemia) (Chronic) Small cell lung cancer (Chronic) History of coronary artery stent placement (Chronic) Coronary artery disease (Chronic) Status post stents. GERD (gastroesophageal reflux disease) (Chronic) Obesity (BMI 30-39.9) (Chronic) Smoking addiction (Chronic) COPD (chronic obstructive pulmonary disease) (Chronic) HTN (hypertension) (Chronic) Hospital Course and Treatment Imaging Results: Diagnostic Data Chest X-Ray 08/03/17 21:11 IMPRESSION: Fibrotic densities with right perihilar infiltrate. Electronically Signed: Jesús Rangel MD at 22:05 EST , Service support , Dr. Brady-cardiology Operations: None Procedures: None Summary of Care Provided: The patient is a 72 year old M admitted 08/03/2017 due to bradycardia, lightheadedness. Patient stated he had a pulse oximeter at home which showed a heart rate of 35. Patient stated he had mild lightheadedness and fatigue during that time. He has denied any lightheadedness, palpitations, near syncope during admission. No bradycardia has been noted on telemetry since admission. His beta-darius was reduced to 50 mg twice daily. Heart rate 75 at discharge and has been consistently 60s-70s throughout admission. Patient has a past medical history of DVT, COPD, encephalopathy, paroxysmal atrial fibrillation, hyperlipidemia, CAD status post PCI, history of small cell lung cancer with last treatment approximately 1 year ago. EKG without evidence of ischemia. Cardiac enzymes negative. Heart rate regular in rate and rhythm. Lungs clear, diminished. Abdomen soft, nontender. Neuro grossly intact. Vital signs stable. Patient is stable for discharge home. He can continue follow-up with cardiology as outpatient. His beta-darius was reduced as noted above. This patient was seen by CLARISSA Cardoza under the supervision of Dr. Gardner. Discharge Diet: Low fat/ Low Cholesterol Discharge Activity: Return to Normal Activity Call your doctor if you observe: Fever of 101 or Higher, Numbness or Tingling, Shortness of breath, Dizziness, Fainting spells, Chest pain, Increased palpitations (irregular heartbeat) Home Medications: Medications to take at Discharge Aspirin E.C. [Ecotrin] 81 mg PO DAILY@0800 04/11/16 Simvastatin [Zocor] 20 mg PO QHS 04/11/16 Nitroglycerin [Nitrostat] 0.4 mg SUBLINGUAL PRN PRN 04/21/16 Amiodarone HCl [Cordarone] 200 mg PO DAILY 04/27/16 Albuterol Inhaler [Ventolin Hfa] 1 - 2 puff INHALATION Q4H PRN PRN 07/08/16 Multivit-Min/FA/Lycopen/Lutein [Centrum Silver Tablet] 1 each PO DAILY 10/14/16 Ranitidine HCl [Acid Administrative Assistant Office Manager] 150 mg PO BID 10/14/16 Clopidogrel Bisulfate [Plavix] 75 mg PO DAILY 12/14/16 Metoprolol Tartrate [Lopressor (beta darius)] 50 mg PO BID #60 tab 08/05/17 Following Prescrptions Were Given to Patient: Metoprolol Tartrate [Lopressor (beta darius)] 50 mg PO BID #60 tab Primary Care Physician: Rogelio Green DO [Primary Care Provider] - Please follow up with your Primary Care Physician in: 1-2 Weeks Please Follow Up With: David Brady MD When: As scheduled Disposition: Home Minutes spent on discharge:: 35 Patient Condition:: Stable Meaningful Use Info Meaningful Use Diagnoses (Choose all that apply): None applicable
== END 2017-08-05 14:55 | disposition home or self-care (01) ==
LOC: ED 21:36 → PCU 22:33
PROVIDERS: Physician Assistant; Admitting Provider Internal Medicine; Emergency Provider Emergency Medicine; Family Provider Family Medicine; PCP Family Medicine; Visit Provider Internal Medicine
DX: R00.1 Bradycardia, unspecified (principal); I48.0 Paroxysmal atrial fibrillation; E78.5 Hyperlipidemia, unspecified; I25.10 Atherosclerotic heart disease of native coronary artery without angina pectoris; J44.9 Chronic obstructive pulmonary disease, unspecified; I10 Essential (primary) hypertension; K21.9 Gastro-esophageal reflux disease without esophagitis; J96.11 Chronic respiratory failure with hypoxia; R73.9 Hyperglycemia, unspecified; E66.9 Obesity, unspecified; G93.40 Encephalopathy, unspecified; R53.1 Weakness; Z85.118 Personal history of other malignant neoplasm of bronchus and lung; Z92.3 Personal history of irradiation; Z87.891 Personal history of nicotine dependence; Z95.5 Presence of coronary angioplasty implant and graft; Z68.30 Body mass index [BMI] 30.0-30.9, adult; Z71.3 Dietary counseling and surveillance; Z86.711 Personal history of pulmonary embolism
CPT/HCPCS: 71045; 80048; 82962; 83036; 83735; 84484; 85025; 93005; 96372; 99218; 99285; A4216; G0378

== ENCOUNTER → 2017-10-05 16:53 | Outpatient (CLI) | payer OTHER, MEDICARE, SELFPAY ==
[2016-12-24 11:34] VITALS: BMI 28.1
--- NOTE | 2017-10-05 17:20 | CT_ITS ---
STUDY: CT ABDOMEN WITH CONTRAST REASON FOR EXAM: Male, 72 years old. History of lung cancer with back pain. RADIATION DOSAGE (If Supplied By Facility): CTDIvol = ( 19.94 ) mGy, DLP = ( 1559.87 ) mGycm TECHNIQUE: Transaxial images were obtained post I.V. administration of 100 ml of Isovue 300 contrast, and with oral contrast. Sagittal and coronal images were reconstructed. Individualized dose optimization techniques were used for this CT. COMPARISON: Prior chest CT exam of March 31, 2017 FINDINGS: Increased right infrahilar soft tissue density with retraction and narrowing of the bronchi similar to the prior exam. Bilateral pleural thickening. Pleural calcifications on the left. Increased pericardial effusion which appears to be loculated anteriorly. Coronary artery calcifications/stent artifact. Normal liver. Normal gallbladder and extrahepatic biliary system. 2.3 x 1.9 cm cystic lesion of the spleen decreased in size from the prior exam. Normal pancreas. Normal bilateral adrenal glands. Stable cysts of the right kidney. Otherwise normal right kidney without hydronephrosis or stones. There is a large staghorn-like calculus in the central renal pelvis of the left kidney which measures 2.6 x 1.6 x 1.9 cm with extensions into 2 lower pole calyces. The renal pelvis is dilated around the stone with peripelvic and perirenal stranding. The ureter is not distended. Otherwise, stable subcentimeter cysts of the left kidney. Food filled stomach. Normal small intestine. Stool filled colon. There are surgical clips in the region of the appendix consistent with a prior appendectomy. Mild calcified plaque of the aorta. Normal inferior vena cava. Normal retroperitoneum. Normal abdominal wall. There are diffuse degenerative changes of the visualized lumbar spine with a dextroscoliosis. Negative for osteolytic or blastic bone lesions. CT/Abdomen WITH IV Contrast IMPRESSION: 2.6 x 1.6 x 1.9 cm staghorn calculus of the left renal pelvis with 2 additional linear extensions into lower calyces. Dilatation of the central renal pelvis with peripelvic and perinephric stranding. The ureter is nondistended. Simple cysts of the right kidney. Otherwise unremarkable right kidney without hydronephrosis or stones. No additional acute abdominal findings. Cystic lesion of the spleen decreased in size from the prior exam. Generally stable pulmonary findings. Pericardial effusion is modestly increased and appears to be loculated anteriorly. Electronically Signed: Shasta Reilly MD at 15:56 EDT , Service support ,
--- NOTE | 2017-10-05 17:20 | CT_ITS ---
STUDY: CT CHEST WITH CONTRAST REASON FOR EXAM: Male, 72 years old. Low back pain with history of cancer. RADIATION DOSAGE (If Supplied By Facility): CTDIvol = ( 19.94 ) mGy, DLP = ( 1559.87 ) mGycm TECHNIQUE: Transaxial imaging was performed following intravenous administration of 100 ml of Isovue 300 contrast material. Multiplanar coronal and sagittal images were reformatted. Individualized dose optimization techniques were used for this CT. COMPARISON: Prior chest CT exam of March 31, 2017 FINDINGS: Fibrotic and retractile changes and a paramediastinal distribution around the right hilum remain unchanged with the more severe changes around the right inferior hilum. Mild chronic changes of the left lung stable from the prior exam. Negative for new consolidation, focal atelectasis or a substantial pleural effusion. Fairly widespread up pleural calcifications at the left lung base. Chronic mild elevation of the right diaphragm. Normal cardiac size. Increased pericardial effusion which appears to be mostly increased or loculated anteriorly. Extensive coronary calcifications/stent artifact. Oral contrast lingers in the esophagus or has been refluxed into the esophagus. Normal enhanced pulmonary arteries. There is atherosclerotic calcification of the aortic arch with tortuosity and elongation of the aortic arch and descending thoracic aorta. There are multi-level degenerative changes of the thoracic spine. CT/Chest WITH Contrast IMPRESSION: Negative for pulmonary embolus. Atherosclerotic changes of the thoracic aorta without aneurysm or dissection. Extensive coronary calcification/stent artifact. Increased pericardial effusion which appears to be primarily loculated anteriorly. Stable chronic lung changes bilaterally without new consolidation, focal atelectasis or a substantial pleural effusion. Chronic pleural calcifications on the left. Chronic mild elevation of the right diaphragm. Oral contrast from abdomen CT exam lingers in the esophagus or is refluxed into the esophagus. The esophagus is not dilated. Electronically Signed: Shasta Reilly MD at 19:48 EDT , Service support ,
[2017-10-05 17:52] LABS: Absolute Lymphocyte Count 1.45 X10^3/ul (0.83-4.51); Basophil# 0.03 X10^3/uL; Basophil% 0.5 % (0-1); Eosinophils% 6.2 % (0-5); Hematocrit 38.4 % (40-54); Hemoglobin 12.7 g/dl (13.0-16.5); Lymphocyte # 1.45 X10^3/ul (4.0); Lymphocyte % 22.5 % (19-41); Mean Corp Hgb Conc 33.1 g/gl (32-36); Mean Corpuscular Hgb 32.8 pg (27.0-32.0); Mean Corpuscular Volume 99.2 fL (80-94); Mean Platelet Vol. 10.2 fl (6.2-12.0); Monocyte# 0.53 X10^3/uL; Monocyte% 8.2 % (0-10); Neutrophil # 4.01 X10^3/uL (2.7-7.7); Neutrophil % 62.3 % (47-70); Platelet Count 137 K/mm3 (150-450); RBC Distribution Width CV 13.3 % (11.6-14.6); Red Blood Count 3.87 M/mm3 (4.6-6.2); White Blood Count 6.4 K/mm3 (4.4-11.0)
[2017-10-05 17:55] LABS: POSITIVE COUNT NO; POSITIVE DIFFERENTIAL NO; POSITIVE MORPHOLOGY NO
[2017-10-05 18:03] LABS: AST(SGOT) 13 U/L (15-37); Alanine Aminotransfer ALT/SGPT 16 U/L (16-61); Albumin, Serum 3.3 g/dL (3.2-5.0); Alkaline Phosphatase 73 U/L (45-117); Anion Gap 6 (5-15); BUN 17 mg/dL (7-18); BUN/Creat Ratio 14.4 RATIO (10-20); Calcium,Total 8.3 mg/dL (8.5-10.1); Chloride 109 mmol/L (98-107); Creatinine, Serum 1.18 mg/dL (0.70-1.30); EST Glomerular Filtration Rate 65 mL/min (>60); Est Glom Filt Rate - Afr Amer 78 mL/min (>60); Globulin 3.4 g/dL (2.2-4.2); Glucose 109 mg/dL (74-106); LDH 134 U/L (87-241); Potassium 3.9 mmol/L (3.5-5.1); Protein, Total 6.7 g/dL (6.4-8.2); Sodium Level 144 mmol/L (136-145)
== END ==
PROVIDERS: Family Provider Family Medicine; PCP Family Medicine; Visit Provider Internal Medicine Medical Oncology
DX: C34.32 Malignant neoplasm of lower lobe, left bronchus or lung (principal)
CPT/HCPCS: 36415; 71260; 74160; 80053; 83615; 85025; Q9967

== ENCOUNTER → 2018-02-02 12:06 | Outpatient (CLI) | payer OTHER, MEDICARE, SELFPAY ==
[2016-12-24 11:34] VITALS: BMI 28.1
[2018-02-02 12:50] VITALS: PULSE 104; PULSE 109; PULSE 113; PULSE 71; PULSE 79; PULSE 87; PULSE 90; PULSE 92; O2SAT 90; O2SAT 91; O2SAT 92; O2SAT 93; O2SAT 94; O2SAT 95
--- NOTE | 2018-02-02 13:55 | WT_ITS ---
PSN 6 Minute Walk Test - 6 Minute Walk Test 6 Minute Walk Test: 6 Minute Walk Test PSN:6-Minute Walk Test Start: 02/02/18 12: 49 Freq: Status: Active Protocol: RESP.6MINW Document 02/02/18 12:50 KATLYN (Rec: 02/02/18 12:52 KATLYN [id number]) 6 Minute Walk Test Date Performed 02/02/18 Time Performed 12:25 Height 5 ft 10 in Weight: 205 lb Weight in Pounds 205.[address]: Jaguar Dos Santos Assistive device used: Cane Pre-test Oxygen Delivery Method Room Air Pulse Ox (%) 94 Pulse Rate (60-100 beats/min) 104 H Dyspnea Val Scale (0-10) 0 Exertion Val Scale (6-20) 6 1st minute Oxygen Delivery Method Room Air Pulse Ox (%) 94 Pulse Rate (60-100 beats/min) 113 H 2nd minute Oxygen Delivery Method Room Air Pulse Ox (%) 93 Pulse Rate (60-100 beats/min) 109 H 3rd minute Oxygen Delivery Method Room Air Pulse Ox (%) 92 Pulse Rate (60-100 beats/min) 90 4th minute Oxygen Delivery Method Room Air Pulse Ox (%) 91 Pulse Rate (60-100 beats/min) 92 5th minute Oxygen Delivery Method Room Air Pulse Ox (%) 90 Pulse Rate (60-100 beats/min) 87 6th minute Oxygen Delivery Method Room Air Pulse Ox (%) 92 Pulse Rate (60-100 beats/min) 79 Dyspnea Val Scale (0-10) 1 Exertion Val Scale (6-20) 12 Post-test Oxygen Delivery Method Room Air Pulse Ox (%) 95 Pulse Rate (60-100 beats/min) 71 Full Laps Walked 15 Partial Lap, Number of Tiles Walked 15 Total Distance Walked (ft) 900 - Interpretation Interpretation: The patient ambulated 900 feet over the course of 6 minutes beginning on room air with use of a cane. Pretesting oxygen saturation was noted to be 94% on room air. With ambulation, the zach oxygen saturation was 90%. This represents a significant exertional oxygen desaturation. - Recommendations Recommendations: There is no indication for the use of supplemental oxygen at this time. However , close interval follow-up is recommended given the degree of oxygen desaturation noted during this study.
== END ==
PROVIDERS: Family Provider Family Medicine; PCP Family Medicine; Visit Provider Nurse Practitioner Acute Care
DX: J44.9 Chronic obstructive pulmonary disease, unspecified (principal)
CPT/HCPCS: 94618

== ENCOUNTER → 2018-02-07 12:53 | Outpatient (CLI) | payer OTHER, MEDICARE, SELFPAY ==
[2016-12-24 11:34] VITALS: BMI 28.1
--- NOTE | 2018-02-07 15:57 | PFTCOMP ---
COMPLETE PULMONARY FUNCTION TEST INTERPRETATION Brief HPI: Patient is a 72 year old male, currently under the care of Dr. Dos Santos, who presents to [facility] for complete pulmonary function tests secondary to diagnosis of COPD. Respiratory therapist reports good effort and reproducible results. Interpretation: Forced expiration spirometry shows a moderate large airways obstructive ventilatory defect with an FEV1 of 64% predicted. There is a response to bronchodilators in FEV1, but this does not reach clinical significance by strict ATS criteria. Spirograms are of good quality and plateau slowly, indicating slowly emptying areas of the lungs. The respiratory flow volume loop shows decreased expiratory flow rates at high lung volumes consistent with small airways obstruction. Lung volumes by body plethysmography show a decreased total lung capacity at 4.56 L, 70% predicted. All other lung volumes are reduced symmetrically. Diffusion capacity by carbon monoxide is decreased at 46% predicted. The airway resistance is normal. Compared to previous pulmonary function tests from 03/09/2017, there has been a significant reduction in TLC by 10%. Impression: Moderate mixed ventilatory defect with symmetric reduction in DLCO and bronchodilator response that does not reach clinical significance.
== END ==
PROVIDERS: Family Provider Family Medicine; PCP Family Medicine; Visit Provider Nurse Practitioner Acute Care
DX: J44.9 Chronic obstructive pulmonary disease, unspecified (principal)
CPT/HCPCS: 94060; 94726; 94729

== ENCOUNTER → 2018-02-12 09:30 | Outpatient (CLI) | payer OTHER, MEDICARE, SELFPAY ==
[2016-12-24 11:34] VITALS: BMI 28.1
[2018-02-12 11:14] LABS: AST(SGOT) 15 U/L (15-37); Alanine Aminotransfer ALT/SGPT 19 U/L (16-61); Albumin, Serum 3.4 g/dL (3.2-5.0); Alkaline Phosphatase 66 U/L (45-117); Bilirubin, Direct 0.16 mg/dL (0.00-0.30); Cholesterol 117 mg/dL (200); Globulin 3.3 g/dL (2.2-4.2); High Density Lipoprotein 37 mg/dL; Protein, Total 6.7 g/dL (6.4-8.2); Thyroid Stim Hormone (TSH) 4.93 uIU/mL (0.358-3.74); Triglycerides 140 mg/dL; Very Low Density Lipoprotein 28 mg/dL (5-40)
== END ==
PROVIDERS: Family Provider Family Medicine; PCP Family Medicine; Visit Provider Internal Medicine Cardiovascular Disease
DX: E78.5 Hyperlipidemia, unspecified (principal); Z79.899 Other long term (current) drug therapy
CPT/HCPCS: 36415; 80061; 80076; 84443

== ENCOUNTER → 2018-04-05 15:39 | Outpatient (CLI) | payer OTHER, MEDICARE, SELFPAY ==
[2016-12-24 11:34] VITALS: BMI 28.1
[2018-04-04 17:20] LABS: Absolute Lymphocyte Count 1.97 X10^3/ul (0.83-4.51); Absolute Neutrophil Count 4.7 X10^3/uL (2.0-7.7); Basophil# 0.02 X10^3/uL; Basophil% 0.3 % (0-1); Eosinophil# 0.28 X10^3/uL; Eosinophils% 3.8 % (0-5); Hematocrit 41.6 % (40-54); Hemoglobin 13.3 g/dl (13.0-16.5); Lymphocyte # 1.97 X10^3/ul (4.0); Lymphocyte % 26.8 % (19-41); Mean Corpuscular Hgb 31.2 pg (27.0-32.0); Mean Corpuscular Volume 97.7 fL (80-94); Mean Platelet Vol. 10.2 fl (6.2-12.0); Monocyte# 0.42 X10^3/uL; Monocyte% 5.7 % (0-10); Neutrophil # 4.65 X10^3/uL (2.7-7.7); Neutrophil % 63.3 % (47-70); Platelet Count 148 K/mm3 (150-450); RBC Distribution Width CV 13.2 % (11.6-14.6); RBC Distribution Width SD 46.4 fl (35.1-43.9); Red Blood Count 4.26 M/mm3 (4.6-6.2); White Blood Count 7.4 K/mm3 (4.4-11.0)
[2018-04-04 17:21] LABS: POSITIVE COUNT NO; POSITIVE DIFFERENTIAL NO; POSITIVE MORPHOLOGY NO
[2018-04-04 17:55] LABS: AST(SGOT) 12 U/L (15-37); Alanine Aminotransfer ALT/SGPT 21 U/L (16-61); Albumin, Serum 3.5 g/dL (3.2-5.0); Alkaline Phosphatase 67 U/L (45-117); Anion Gap 7 (5-15); BUN 20 mg/dL (7-18); BUN/Creat Ratio 17.4 RATIO (10-20); Calcium,Total 8.7 mg/dL (8.5-10.1); Chloride 107 mmol/L (98-107); Creatinine, Serum 1.15 mg/dL (0.70-1.30); EST Glomerular Filtration Rate 67 mL/min (>60); Est Glom Filt Rate - Afr Amer 81 mL/min (>60); Globulin 3.4 g/dL (2.2-4.2); Glucose 111 mg/dL (74-106); LDH 135 U/L (87-241); Potassium 4.2 mmol/L (3.5-5.1); Protein, Total 6.9 g/dL (6.4-8.2); Sodium Level 142 mmol/L (136-145)
--- NOTE | 2018-04-05 15:41 | CT_ITS ---
STUDY: CT ABDOMEN WITH CONTRAST REASON FOR EXAM: Male, 72 years old. Lung cancer RADIATION DOSAGE (If Supplied By Facility): CTDIvol = ( 15.2+19.7 x 24.7 ) mGy, DLP = ( 7.6 x 644+894 ) mGycm TECHNIQUE: Transaxial images were obtained post I.V. administration of 100 ml of Isovue 300 contrast, and without oral contrast. Sagittal and coronal images were reconstructed. Individualized dose optimization techniques were used for this CT. COMPARISON: CT abdomen and pelvis 10/05/2017. FINDINGS: Body wall soft tissues: No acute process. Osseous structures: Osteopenia, thoracolumbar S-shaped scoliosis, multilevel lumbar spondylosis with evidence of foraminal narrowing in the low lumbar spine on the right at L4-L5 and L5-S1 and on the left at L5-S1. Inferior chest: Hyperlucency of the lung bases suggest the presence of underlying COPD. The right lung is otherwise clear. There is mild pleural thickening and rather diffuse calcified pleural plaque of the posterior lateral pleural reflections of the left lower lung. There is a small pericardial effusion most prominent at the apex. There is no cardiomegaly. There is epicardial lipomatosis and mild lipomatous hypertrophy of the interatrial septum. There are prominent coronary calcifications. Normal distal esophagus. Hepatobiliary: Normal. Pancreas: Mild atrophy. Spleen: Simple cyst. Otherwise normal. Adrenal glands: Normal. Urogenital: Simple cyst right kidney 2.8 cm, another 1.2 cm. Normal right collecting system and ureter. On the left, subcentimeter grossly simple appearing cyst measuring about 6 cm. Mild perinephric stranding. Staghorn calculus within the renal pelvis, with arms projecting into the lower pole calyces. There is mild ectasia of the renal pelvis and calyces without calyceal blunting. There is hazy induration in the fat surrounding the renal pelvis which may reflect transient obstruction causing edema within the renal hilum but could also reflect infected calculus causing inflammation of the urinary tract. The ureter is nondilated. Retroperitoneum: No mass or lymphadenopathy. Vascular: Mild atherosclerosis. Stomach and small bowel: Evaluated portions exhibit no acute process. Large bowel: Evaluated portions exhibit no acute process. Free fluid or free air: None. CT/Abdomen WITH IV Contrast IMPRESSION: Staghorn calculus of the left kidney with inflammatory induration in the fat surrounding the renal pelvis which may reflect transient ball-valving obstruction, or may also reflect inflammation from infection. Small pericardial effusion. Prominent coronary atherosclerosis. Left lower lung pleural calcified plaque. Benign renal cysts. Lumbar spondylosis. Evidence of foraminal stenosis at multiple levels in the lumbar spine. Electronically Signed: David Nicole, at 15:25 EDT Tel , Service support ,
--- NOTE | 2018-04-05 15:42 | CT_ITS ---
STUDY: CT CHEST WITH CONTRAST REASON FOR EXAM: Male, 72 years old. Lung cancer RADIATION DOSAGE (If Supplied By Facility): CTDIvol = ( 19.87 ) mGy, DLP = ( 1546.00 ) mGycm TECHNIQUE: Transaxial imaging was performed following intravenous administration of 100 ml of Isovue 300 contrast material. Coronal and sagittal 2-D MPR Individualized dose optimization techniques were used for this CT. COMPARISON: CT chest 10/05/2017, 03/31/2017, 01/25/2017, 10/15/2016 FINDINGS: Supraclavicular: Normal. Thoracic body wall soft tissues: Normal. Upper abdomen: No acute process. Osseous structures: Mild scoliosis, osteopenia and thoracic spondylosis. No acute osseous process is evident. No lytic or blastic lesions are apparent. Mediastinum: Normal caliber of the esophagus. There is fluid in the proximal and middle thirds of the esophagus which could reflect high reflux, or dysmotility of the esophagus. There is no mediastinal or hilar mass or lymphadenopathy. There is a small pericardial effusion most prominent along the anterior and apical zacarias of the heart. This effusion is stable compared to prior imaging of October 2017. Lungs: Aside pleural plaque of the left lower lung with mild pleural wall thickening. The left lung is otherwise clear. The right lung is clear. There is generalized mild hyperlucency suggesting underlying COPD. There is no evidence of primary pulmonary malignancy. There is a pulmonary nodule just above the major fissure in the right lung, series 6 image 38, measuring about 7 mm. Stable compared to imaging of October 2017 and March 2017. No other pulmonary nodules. Unremarkable airways. Cardiovascular: Normal heart size, prominent three-vessel coronary calcifications. Nondilated aorta, nondilated central pulmonary arteries, no evidence of pulmonary embolus. CT/Chest WITH Contrast IMPRESSION: No acute cardiopulmonary process. Stable chronic pericardial effusion. This may be a loculated effusion based on this distribution. Solitary right upper lobe pulmonary nodule measuring just under 7 mm. Stable. Prominent three-vessel coronary atherosclerosis. Electronically Signed: David Nicole, at 15:35 EDT Tel , Service support ,
== END ==
PROVIDERS: Family Provider Family Medicine; PCP Family Medicine; Referring Provider Internal Medicine Medical Oncology; Visit Provider Internal Medicine Medical Oncology
DX: C34.90 Malignant neoplasm of unspecified part of unspecified bronchus or lung (principal); I48.91 Unspecified atrial fibrillation; I48.92 Unspecified atrial flutter
CPT/HCPCS: 36415; 71260; 74160; 80053; 83615; 85025; Q9967

== ENCOUNTER → 2018-10-03 15:14 | Outpatient (CLI) | payer OTHER, MEDICARE, SELFPAY ==
[2016-12-24 11:34] VITALS: BMI 28.1
[2018-06-21 15:24] VITALS: BMI 30.9
[2018-10-03 15:46] LABS: Absolute Lymphocyte Count 1.56 X10^3/ul (0.83-4.51); Absolute Neutrophil Count 5.7 X10^3/uL (2.0-7.7); Basophil# 0.03 X10^3/uL; Basophil% 0.4 % (0-1); Eosinophils% 1.3 % (0-5); Hematocrit 40.1 % (40-54); Hemoglobin 13.1 g/dl (13.0-16.5); Lymphocyte # 1.56 X10^3/ul (4.0); Lymphocyte % 19.5 % (19-41); Mean Corp Hgb Conc 32.7 g/gl (32-36); Mean Corpuscular Hgb 29.9 pg (27.0-32.0); Mean Corpuscular Volume 91.6 fL (80-94); Mean Platelet Vol. 10.2 fl (6.2-12.0); Monocyte% 7.5 % (0-10); Neutrophil # 5.67 X10^3/uL (2.7-7.7); Platelet Count 163 K/mm3 (150-450); RBC Distribution Width CV 13.1 % (11.6-14.6); Red Blood Count 4.38 M/mm3 (4.6-6.2)
--- NOTE | 2018-10-03 15:47 | CT_ITS ---
STUDY: CT CHEST/THORAX WITH CONTRAST REASON FOR EXAM: Male, 73 years old. Lung cancer follow-up. Prior radiation and chemotherapy. RADIATION DOSAGE (If Supplied By Facility): CTDIvol = ( 20.85 ) mGy, DLP = ( 1745.08 ) mGycm TECHNIQUE: Transaxial imaging was performed following intravenous administration of 100mL IV Isovue 300. Multiplanar coronal and sagittal images were reformatted. Individualized dose optimization techniques were used for this CT. COMPARISON: CT chest with contrast April 05, 2018. FINDINGS: Spiculated, lobulated 1.35 x 1.35 x 1.0 cm soft tissue nodule worrisome for malignancy seen in the posterior medial periphery of the right upper lobe on series 6 images 33-34, series 601 image 201. There is stable right suprahilar and posterior infrahilar scarring with overall volume loss in the right hemithorax and elevation of the right diaphragm. Minor scarring again seen in the lingula of left upper lobe and posterior left base. There is some chronic left posterior pleural thickening/calcific pleural plaquing. Normal heart size. Anterior pericardial effusion is notably improved. There are calcifications of the coronary arteries. Prior endovascular stenting of left anterior descending coronary artery suggested. There is a 2.5 x 1.75 x 1.65 cm lower right pretracheal lymph node worrisome for metastatic disease. 1.3 x 0.6 x 0.7 cm central posterior right hilar lymph node (series 2 image 53, series 6 on image 161) as well as 1.3 x 0.7 x 0.65 cm subcarinal lymph node are unchanged. Normal enhanced pulmonary arteries. There is stable mild atherosclerotic calcification of the aortic arch and descending thoracic aorta. There are multi-level degenerative changes of the thoracic spine. There is 14-5 degree levoscoliosis centered at T9-10 and 16 degree dextroscoliosis at T12-L1 Not fully included in the [id number] is a 3.5 cm rounded low-density suggesting a cyst in the lateral upper pole of the right kidney, as well as 2.2 cm well-defined rounded low density consistent with a cyst in the posterior spleen. CT/Chest WITH Contrast IMPRESSION: 1. New spiculated, lobulated 1.35 cm soft tissue nodule worrisome for malignancy in the posterior medial periphery of the right upper lobe. 2. New 2.5 cm lower right pretracheal lymph node also worrisome for metastatic disease. 3. Stable right suprahilar and infrahilar scarring with elevation of the right diaphragm. There is also stable mild scarring in the left base and left basilar calcific pleural plaquing. 4. Anterior pericardial effusion is notably improved. 5. Atherosclerotic vascular calcifications. Possible prior endovascular stenting of left anterior ascending coronary artery. 6. Stable degenerative changes and mild S-shaped scoliosis of the mid to lower thoracic spine. 7. Possible cysts in the upper pole of the right kidney and in the posterior spleen, as noted. N.B. : The above information has been verbally conveyed by Kiet Waterman MD to Rossi Pepe RN, on 10/04/2018 10:46:43 (ET). Electronically Signed: Kiet Waterman MD at 10:47 EDT , Service support ,
--- NOTE | 2018-10-03 15:48 | CT_ITS ---
STUDY: CT ABDOMEN WITH CONTRAST REASON FOR EXAM: Male, 73 years old. Lung cancer follow-up. Prior radiation and chemotherapy. No new problems. RADIATION DOSAGE (If Supplied By Facility): CTDIvol = ( 20.85 ) mGy, DLP = ( 1745.08 ) mGycm TECHNIQUE: Transaxial images were obtained post I.V. administration of 100mL IV Isovue 300, and without oral contrast. Sagittal and coronal images were reconstructed. Individualized dose optimization techniques were used for this CT. COMPARISON: CT abdomen with contrast April 05, 2018. FINDINGS: There is stable elevation of the right diaphragm. Stable minor curvilinear scarring in the left base and calcific pleural plaquing. The heart size is normal. There is notable improvement of the anterior pericardial effusion. Atherosclerotic calcifications of the coronary arteries again noted. Normal liver. The patent portal vein diameter is 10.5 mm. Normal gallbladder and extrahepatic biliary system. The diameter of the common bile duct is 4 mm. There is a stable well-defined 2.0 x 2.2 x 2.1 cm subcapsular cyst in the posterior margin of the spleen. Normal pancreas. Normal bilateral adrenal glands. Stable well-defined 2.0 x 3.1 x 3.0 cm rounded cortical cyst in the lateral upper pole right kidney. Rounded 1.4 cm cyst also again seen in the posterior right hilar lip. There is 9.5 mm stable cortical cyst in the posterior upper pole of the left kidney. 4-5 mm cyst also again seen at the tip of the lower pole, and another is seen in the posterior midpole. Large staghorn calculus again seen in the left renal pelvis, with limited extending into the lower pole infundibulum and calyx. There is minor left upper pole caliectasis, but no serg hydronephrosis Normal visualized stomach. Gas and minimal fluid-filled 1.6 x 1.85 x 2.0 cm periampullary duodenal diverticulum is mildly decreased in size. Normal small intestine. Normal colon. There is non-visualization of the appendix. There is stable atherosclerotic calcification of the abdominal aorta and proximal iliac arteries, without a demonstrated aneurysm. Normal inferior vena cava. Normal retroperitoneum. Normal abdominal wall. There are stable diffuse degenerative changes of the visualized spine. CT/Abdomen WITH IV Contrast IMPRESSION: 1. No findings suspicious for abdominal metastatic disease. 2. Bilateral renal cortical cysts again noted. A large staghorn calculus also seen in the left renal pelvis. There is stable mild left upper pole caliectasis, but no serg hydronephrosis. 3. Stable cyst in the posterior spleen. 4. Atherosclerotic vascular calcifications present. No abdominal aortic aneurysm. 5. Stable curvilinear scarring and calcific pleural plaquing at the base of the left lung. 6. Gas and fluid filled periampullary duodenal diverticulum is decreased in size. The bowel is otherwise unremarkable without sign of obstruction. The appendix is not visualized. Electronically Signed: Kiet Waterman MD at 11:08 EDT , Service support ,
[2018-10-03 15:49] LABS: POSITIVE COUNT NO; POSITIVE DIFFERENTIAL NO; POSITIVE MORPHOLOGY NO
[2018-10-03 16:13] LABS: ALB/GLOB Ratio 0.9 RATIO (0.9-2.4); AST(SGOT) 14 U/L (15-37); Alanine Aminotransfer ALT/SGPT 19 U/L (16-61); Albumin, Serum 3.2 g/dL (3.2-5.0); Alkaline Phosphatase 74 U/L (45-117); Anion Gap 5 (5-15); BUN 20 mg/dL (7-18); BUN/Creat Ratio 16.5 RATIO (10-20); Calcium,Total 8.6 mg/dL (8.5-10.1); Chloride 109 mmol/L (98-107); Creatinine, Serum 1.21 mg/dL (0.70-1.30); EST Glomerular Filtration Rate 63 mL/min (>60); Est Glom Filt Rate - Afr Amer 76 mL/min (>60); Globulin 3.4 g/dL (2.2-4.2); Glucose 133 mg/dL (74-106); LDH 122 U/L (87-241); Protein, Total 6.6 g/dL (6.4-8.2); Sodium Level 139 mmol/L (136-145)
[2018-10-03 23:22] LABS: Xtra Tube EP Lab EXTRA TUBE
[2018-10-03 23:23] LABS: Xtra Tube EP Lab EXTRA TUBE
== END ==
PROVIDERS: Family Provider Family Medicine; PCP Family Medicine; Referring Provider Internal Medicine Medical Oncology; Visit Provider Internal Medicine Medical Oncology
DX: C34.32 Malignant neoplasm of lower lobe, left bronchus or lung (principal)
CPT/HCPCS: 36415; 71260; 74160; 80053; 83615; 85025; Q9967

== ENCOUNTER 2018-10-06 23:17 | Observation (INO) | payer OTHER, MEDICARE, SELFPAY ==
[2016-12-24 11:34] VITALS: BMI 28.1
[2018-10-06 14:28] VITALS: BMI 29.4
[2018-10-06 23:18] VITALS: BP 121/85; PULSE 77; RESP 22; TEMP 36.7; O2SAT 89; BMI 29.7
--- NOTE | 2018-10-06 23:36 | EKG12_ITS ---
Test Reason : CP Blood Pressure : / mmHG Vent. Rate : 076 BPM Atrial Rate : 076 BPM P-R Int : 170 ms QRS Dur : 096 ms QT Int : 412 ms P-R-T Axes : 029 -27 038 degrees QTc Int : 463 ms Normal sinus rhythm Normal ECG Confirmed by ELEAZAR RODRIGUEZ, NIRMAL ([id number]), editorial clerk NIKITA HELTON ([id number]) on 10/10/2018 11:11:50 AM Referred By: SRIDEVI Confirmed By:NIRMAL BUSH MD
--- NOTE | 2018-10-06 23:43 | RAD_ITS ---
HISTORY: PT C/O SHARPNESS AND PRESSURE ACROSS CHEST X1 HOUR, HX LUNG CA AND COPD EXAM: XR Chest 1 View COMPARISON: CT chest 10/03/18 chest radiograph 08/03/17. FINDINGS: LINES/DEVICES: None. LUNGS: There are chronic interstitial changes. No pneumothorax. No consolidation or effusion. Chronic blunting left costophrenic sulcus with left basilar pleural calcifications. Chronic right perihilar opacity. MEDIASTINUM AND CARDIOVASCULAR STRUCTURES: Cardiac silhouette not enlarged. Central airways and mediastinal contour are unremarkable. BONES AND SOFT TISSUES: Chronic right rib fractures. No acute findings. RAD/Chest 1 View (Portable) IMPRESSION: Chronic interestitial changes. Chronic right perihilar opacity. No radiographic evidence of acute cardiopulmonary disease. at 0017 Reported and signed by: Solomon Sargent MD Electronically Signed: Solomon Sargent, at 0:15 EDT Tel , Service support ,
[2018-10-06 23:48] LABS: Absolute Lymphocyte Count 2.43 X10^3/ul (0.83-4.51); Absolute Neutrophil Count 8.1 X10^3/uL (2.0-7.7); Basophil# 0.02 X10^3/uL; Basophil% 0.2 % (0-1); Eosinophil# 0.12 X10^3/uL; Hematocrit 40.4 % (40-54); Hemoglobin 13.2 g/dl (13.0-16.5); Lymphocyte # 2.43 X10^3/ul (4.0); Lymphocyte % 20.6 % (19-41); Mean Corp Hgb Conc 32.7 g/gl (32-36); Mean Corpuscular Hgb 30.3 pg (27.0-32.0); Mean Corpuscular Volume 92.7 fL (80-94); Mean Platelet Vol. 10.2 fl (6.2-12.0); Monocyte# 1.13 X10^3/uL; Monocyte% 9.6 % (0-10); Neutrophil # 8.09 X10^3/uL (2.7-7.7); Neutrophil % 68.4 % (47-70); Platelet Count 169 K/mm3 (150-450); RBC Distribution Width CV 13.2 % (11.6-14.6); RBC Distribution Width SD 43.1 fl (35.1-43.9); Red Blood Count 4.36 M/mm3 (4.6-6.2); White Blood Count 11.8 K/mm3 (4.4-11.0)
[2018-10-06] MEDS: 0.9% Normal Saline 1,000 ML 150 ML IV (23:48)
[2018-10-06] MEDS: Mag Hydrox/Al Hydrox/Simeth 30 ML UDC PO (23:48)
[2018-10-06 23:51] LABS: POSITIVE COUNT NO; POSITIVE DIFFERENTIAL NO; POSITIVE MORPHOLOGY NO
[2018-10-07] VITALS (8 sets, daily range): BP systolic 117–127; BP diastolic 67–78; PULSE 68–78; RESP 18; TEMP 36.7–36.8; O2SAT 93–97; BMI 29.6
[2018-10-07 00:02] LABS: D-Dimer Quantitative (DVT/PE) 0.88 FEU/ug/m (0.27-0.49)
--- NOTE | 2018-10-07 00:03 | ED.RN ---
DDIMER 0.88, DR NOTIFIED
[2018-10-07 00:05] LABS: Anion Gap 6 (5-15); BUN 16 mg/dL (7-18); BUN/Creat Ratio 12.1 RATIO (10-20); Calcium,Total 8.7 mg/dL (8.5-10.1); Chloride 108 mmol/L (98-107); Creatinine, Serum 1.32 mg/dL (0.70-1.30); EST Glomerular Filtration Rate 57 mL/min (>60); Est Glom Filt Rate - Afr Amer 69 mL/min (>60); Estimated Creatinine Clearance 53.88 ml/min; Glucose 116 mg/dL (74-106); Potassium 4.6 mmol/L (3.5-5.1); Sodium Level 142 mmol/L (136-145)
--- NOTE | 2018-10-07 00:19 | CT_ITS ---
HISTORY: CHEST PAIN AND PRESSURE,SOB,ELEVATED DDIMERHX:A-FIB,COPD,GERD,HLD,HTN,LUNG CANCER WITH CHEMO TECHNIQUE: Helically acquired images were obtained of the chest following IV contrast as per pulmonary angiogram protocol with 3D reconstructions. A radiation dose optimization technique was used for this scan. IV Contrast dosage and agent: 100 cc Isovue-370 COMPARISON: Chest radiograph same date and CT chest 10/03/18. FINDINGS: # of images incl. paperwork: [id number] No pulmonary embolus. No dissection or aneurysm of the thoracic aorta. Small pericardial effusion, most prominent anteriorly, coronary artery atherosclerosis with probable LAD stent, similar to prior. Spiculated 1.4 density nodule in the posterior aspect of the right upper lung worrisome for malignancy, not significantly changed. No evidence of acute pneumonia or pulmonary edema. Right infrahilar scarring and atelectasis, mild linear scarring left lung base, left basilar pleural calcifications, elevation of the right hemidiaphragm all similar to previous. 2.5 cm right paratracheal lymph node unchanged. No new adenopathy is evident. Low-density lesions in the spleen and right kidney partially visible, similar to prior. No acute finding in the visualized upper abdomen. No acute osseous abnormality. Scoliosis unchanged. CT/CTA Chest W/WO Contrast IMPRESSION: No acute interval change. No pulmonary embolus. Findings similar to the 10/03/18 CT include a nodule in the right upper lung suspicious for neoplasm, and a right paratracheal enlarged lymph node possibly metastatic. Individualized dose optimization techniques were used for this CT. at 0154 Reported and signed by: Solomon Sargent MD Electronically Signed: Solomon Sargent, at 1:53 EDT Tel , Service support ,
--- NOTE | 2018-10-07 00:49 | ED.VIS.GEN ---
History of Present Illness Chief Complaint: Chest Pain Informant: Patient, Family Onset: Hours - 1.5-2 Context: Sudden Onset - while sitting at rest Timing: Continuous Quality: pressure Location: across entire chest. no radiation. Current Severity: Moderate Maximum Severity: Moderate Worsened by: deep inspiration; no sharp or other parietal pains. Relieved by: nothing; no change after 2 NTG. Associated Symptoms: a little SOB. no arm/back/neck/jaw pain. no n/v. no palpitations/dizzy. Narrative: History of heart disease with stents. This feels different than his heart pain although it has been a long time since he has had any. Compliant with his aspirin and Plavix. On no anticoagulants. No history of pulmonary embolus, but he did have a DVT remotely according to his medical history although the patient did not note or remember this. No recent leg pain or swelling, no immobilization, travel, recent hospitalization or surgery. He has a history of small cell lung cancer but it has been around 2 years since he has been under any chemotherapy treatment. - Past Medical History (1) Atherosclerotic heart disease of [place] coronary artery without angina pectoris Status: Chronic Comment: PTCA/stent of the mid LAD, prox 1st diag, prox RCA 08/13/10; PTCA/BETO of the Ostial/Prox 1st diag 12/15/16 (2) COPD (chronic obstructive pulmonary disease) Status: Chronic (3) Fatigue Status: Chronic (4) HLD (hyperlipidemia) Status: Chronic (5) HTN (hypertension) Status: Chronic (6) Paroxysmal atrial fibrillation Status: Chronic (7) Primary small cell malignant neoplasm of lung, stage 3 Status: Chronic Past Medical History - Allergies and Home Meds Allergies/Adverse Reactions: Allergies No Known Allergies Allergy (Verified 10/06/18 23:21) Primary Care Physician: Rogelio Green DO [Primary Care Provider] - Surgical History: appendectomy, - - Cardiac stents. Lives: Spouse/ Significant Other Smoking Status: Former smoker - Family History Maternal Family History: Family History (Last Reviewed 10/06/18 @ 14:27 by Cheri Vo) Father Heart disease Mother Cancer Brother Diabetes Son Atrial fibrillation Family History: Reports: Cancer - Lung cancer Paternal Family History: Family History (Last Reviewed 10/06/18 @ 14:27 by Cheri Vo) Father Heart disease Mother Cancer Brother Diabetes Son Atrial fibrillation Family History: Reports: Heart Disease Sibling Family History: Family History (Last Reviewed 10/06/18 @ 14:27 by Cheri Vo) Father Heart disease Mother Cancer Brother Diabetes Son Atrial fibrillation Family History: Reports: Diabetes Review of Systems General: Denies: Chills, Fever, Sweats Eyes: Denies: Visual changes - bilaterally, Diplopia ENT: Denies: Rhinorrhea, Sore throat Cardiovascular: Reports: Chest pain. Denies: Palpitations Respiratory: Reports: Dyspnea. Denies: Cough, Dyspnea on exertion Gastrointestinal: Denies: Abdominal pain, Nausea, Vomiting, Diarrhea, Melena, Hematochezia Genitourinary: Denies: Dysuria, Hematuria, Frequency Musculoskeletal: Denies: Back pain, Swelling, Extremity Pain Skin: Denies: Rash, Wounds Neurological: Denies: Headache, Weakness, Numbness Physical Exam Vital Signs/Narrative: Vital Signs Temp Pulse Resp BP Pulse Ox 10/06/18 23:18 98.1 F 77 22 H 121/85 H 89 Inital Vital Signs reviewed: Yes General: Well nourished, Well developed, No Acute Distress Head: Normocephalic, Atraumatic Eyes: Perrl, EOMI ENT: Moist mucous membranes, No rhinorrhea Neck: Supple, Nontender, No JVD Cardiovascular: Regular rate, Regular rhythm, No murmurs Respiratory: No distress, CTA bilaterally, Chest nontender, Diminished - throughout, symmetrically Abdomen: Soft, Nontender, Nondistended, Normal bowel sounds Back: Nontender, Normal Inspection Extremities: Nontender, No edema. Negative for: Calf Tenderness Skin: Normal color, No rash, No Trauma Neurological: Alert, Oriented x3, Cranial nerves II-XII grossly intact, Normal Strength, Normal Sensation Psychological: Normal affect, Normal Mood Diagnostic/Tx/Re-eval Chest X-Ray - ED: 1 View, Read by ED Physician, No Acute Disease, Chronic Changes Impressions Chest X-Ray 10/06/18 23:43 IMPRESSION: Chronic interestitial changes. Chronic right perihilar opacity. No radiographic evidence of acute cardiopulmonary disease. at 0017 Reported and signed by: Solomon Sargent MD Electronically Signed: Solomon Sargent, at 0:15 EDT Tel , Service support , Chest CTA 10/07/18 00:19 IMPRESSION: No acute interval change. No pulmonary embolus. Findings similar to the 10/03/18 CT include a nodule in the right upper lung suspicious for neoplasm, and a right paratracheal enlarged lymph node possibly metastatic. Individualized dose optimization techniques were used for this CT. at 0154 Reported and signed by: Solomon Sargent MD Electronically Signed: Solomon Sargent, at 1:53 EDT Tel , Service support , 10/06/18 23:43 Chest 1 View (Portable) [RAD] Stat 10/07/18 00:19 CTA Chest W/WO Contrast [CT] Stat Laboratory Results 10/06/18 10/06/18 10/06/18 23:30 23:30 23:30 WBC 11.8 H RBC 4.36 L Hgb 13.2 Hct 40.4 MCV 92.7 MCH 30.3 MCHC 32.7 RDW 13.2 RDW Differential 43.1 Plt Count 169 MPV 10.2 Immature Gran % (Auto) 0.200 Neut % (Auto) 68.4 Lymph % (Auto) 20.6 [place] % (Auto) 9.6 Eos % (Auto) 1.0 Baso % (Auto) 0.2 Absolute Neuts (auto) 8.1 H Absolute Lymphs (auto) 2.43 Total Counted Not Reportable D-Dimer Quant (PE/DVT) 0.88 H* Sodium 142 Potassium 4.6 Chloride 108 H Carbon Dioxide 28.0 Anion Gap 6 BUN 16 Creatinine 1.32 H Estim Creat Clear Calc 53.88 Est GFR (MDRD) Af Amer 69 Est GFR (MDRD) Non-Af 57 L BUN/Creatinine Ratio 12.1 Glucose 116 H Calcium 8.7 Troponin I < 0.015 - Rhythm Strip Rhythm Strip: Sinus Rhythm Rate: 75 Ectopy: None - EKG Initial EKG Interpretation: Sinus Rhythm, No Acute Injury Pattern, - - left axis. poor R wave progression. inferior Q waves. Prior: Changed - left axis is new, otherwise unchanged. - Medical Decision Making EKG shows new left axis compared to his old one with no acute injury pattern. His troponin is negative. His d-dimer is elevated even when corrected for age. Given his pleuritic symptoms, he was sent for CT angiography although he had a CT chest with contrast 3 days ago, it did not mention whether or not he had pulmonary emboli. With a history of cancer, he certainly is at a higher risk, however he has had no active treatment for the past [address] angiography showed similar findings to his CT 3 days ago with a spiculated mass suspicious for carcinoma as well as lymphadenopathy in the mediastinum, and no pulmonary embolus was seen. His discomfort is much improved on reevaluation while resting here in the emergency department. I had given him a GI cocktail, however he vomited it up immediately, and after all of that, his discomfort really was unchanged. It improved with observation and rest. Discussed with hospitalist for inpatient observation on telemetry. ED Disposition - Plan for ED Patient: Disposition: Acute Care Hospital [facility] Diagnosis: Chest pain, Atherosclerotic heart disease of [place] coronary artery without angina pectoris Referrals: Rogelio Green DO [Primary Care Provider] -
--- NOTE | 2018-10-07 00:53 | ED.DCSUM_ITS ---
History of Present Illness Chief Complaint: Chest Pain Informant: Patient, Family Onset: Hours - 1.5-2 Context: Sudden Onset - while sitting at rest Timing: Continuous Quality: pressure Location: across entire chest. no radiation. Current Severity: Moderate Maximum Severity: Moderate Worsened by: deep inspiration; no sharp or other parietal pains. Relieved by: nothing; no change after 2 NTG. Associated Symptoms: a little SOB. no arm/back/neck/jaw pain. no n/v. no palp itations/dizzy. Narrative: History of heart disease with stents. This feels different than his heart pain although it has been a long time since he has had any. Compliant with his aspirin and Plavix. On no anticoagulants. No history of pulmonary embolus, but he did have a DVT remotely according to his medical history although the patient did not note or remember this. No recent leg pain or swelling, no immobilization, travel, recent hospitalization or surgery. He has a history of small cell lung cancer but it has been around 2 years since he has been under any chemotherapy treatment. - Past Medical History (1) Atherosclerotic heart disease of [place] coronary artery without angina pectoris Status: Chronic Comment: PTCA/stent of the mid LAD, prox 1st diag, prox RCA 08/13/10; PTCA/BETO of the Ost[place]/Prox 1st diag 12/15/16 (2) COPD (chronic obstructive pulmonary disease) Status: Chronic (3) Fatigue Status: Chronic (4) HLD (hyperlipidemia) Status: Chronic (5) HTN (hypertension) Status: Chronic (6) Paroxysmal atrial fibrillation Status: Chronic (7) Primary small cell malignant neoplasm of lung, stage 3 Status: Chronic Past Medical History - Allergies and Home Meds Allergies/Adverse Reactions: Allergies No Known Allergies Allergy (Verified 10/06/18 23:21) Primary Care Physician: Rogelio Green DO [Primary Care Provider] - Surgical History: appendectomy, - - Cardiac stents. Lives: Spouse/ Significant Other Smoking Status: Former smoker - Family History Maternal Family History: Family History (Last Reviewed 10/06/18 @ 14:27 by Cheri Vo) Father Heart disease Mother Cancer Brother Diabetes Son Atrial fibrillation Family History: Reports: Cancer - Lung cancer Paternal Family History: Family History (Last Reviewed 10/06/18 @ 14:27 by Cheri Vo) Father Heart disease Mother Cancer Brother Diabetes Son Atrial fibrillation Family History: Reports: Heart Disease Sibling Family History: Family History (Last Reviewed 10/06/18 @ 14:27 by Cheri Vo) Father Heart disease Mother Cancer Brother Diabetes Son Atrial fibrillation Family History: Reports: Diabetes Review of Systems General: Denies: Chills, Fever, Sweats Eyes: Denies: Visual changes - bilaterally, Diplopia ENT: Denies: Rhinorrhea, Sore throat Cardiovascular: Reports: Chest pain. Denies: Palpitations Respiratory: Reports: Dyspnea. Denies: Cough, Dyspnea on exertion Gastrointestinal: Denies: Abdominal pain, Nausea, Vomiting, Diarrhea, Melena, Hematochezia Genitourinary: Denies: Dysuria, Hematuria, Frequency Musculoskeletal: Denies: Back pain, Swelling, Extremity Pain Skin: Denies: Rash, Wounds Neurological: Denies: Headache, Weakness, Numbness Physical Exam Vital Signs/Narrative: Vital Signs Temp Pulse Resp BP Pulse Ox 10/06/18 23:18 98.1 F 77 22 H 121/85 H 89 Inital Vital Signs reviewed: Yes General: Well nourished, Well developed, No Acute Distress Head: Normocephalic, Atraumatic Eyes: Perrl, EOMI ENT: Moist mucous membranes, No rhinorrhea Neck: Supple, Nontender, No JVD Cardiovascular: Regular rate, Regular rhythm, No murmurs Respiratory: No distress, CTA bilaterally, Chest nontender, Diminished - throughout, symmetrically Abdomen: Soft, Nontender, Nondistended, Normal bowel sounds Back: Nontender, Normal Inspection Extremities: Nontender, No edema. Negative for: Calf Tenderness Skin: Normal color, No rash, No Trauma Neurological: Alert, Oriented x3, Cranial nerves II-XII grossly intact, Normal Strength, Normal Sensation Psychological: Normal affect, Normal Mood Diagnostic/Tx/Re-eval Chest X-Ray - ED: 1 View, Read by ED Physician, No Acute Disease, Chronic Changes Impressions Chest X-Ray 10/06/18 23:43 IMPRESSION: Chronic interestitial changes. Chronic right perihilar opacity. No radiographic evidence of acute cardiopulmonary disease. at 0017 Reported and signed by: Solomon Sargent MD Electronically Signed: Solomon Sargent, at 0:15 EDT Tel , Service support , Chest CTA 10/07/18 00:19 IMPRESSION: No acute interval change. No pulmonary embolus. Findings similar to the 10/03/18 CT include a nodule in the right upper lung suspicious for neoplasm, and a right paratracheal enlarged lymph node possibly metastatic. Individualized dose optimization techniques were used for this CT. at 0154 Reported and signed by: Solomon Sargent MD Electronically Signed: Solomon Sargent, at 1:53 EDT Tel , Service support , 10/06/18 23:43 Chest 1 View (Portable) [RAD] Stat 10/07/18 00:19 CTA Chest W/WO Contrast [CT] Stat Laboratory Results 10/06/18 10/06/18 10/06/18 23:30 23:30 23:30 WBC 11.8 H RBC 4.36 L Hgb 13.2 Hct 40.4 MCV 92.7 MCH 30.3 MCHC 32.7 RDW 13.2 RDW Differential 43.1 Plt Count 169 MPV 10.2 Immature Gran % (Auto) 0.200 Neut % (Auto) 68.4 Lymph % (Auto) 20.6 [place] % (Auto) 9.6 Eos % (Auto) 1.0 Baso % (Auto) 0.2 Absolute Neuts (auto) 8.1 H Absolute Lymphs (auto) 2.43 Total Counted Not Reportable D-Dimer Quant (PE/DVT) 0.88 H* Sodium 142 Potassium 4.6 Chloride 108 H Carbon Dioxide 28.0 Anion Gap 6 BUN 16 Creatinine 1.32 H Estim Creat Clear Calc 53.88 Est GFR (MDRD) Af Amer 69 Est GFR (MDRD) Non-Af 57 L BUN/Creatinine Ratio 12.1 Glucose 116 H Calcium 8.7 Troponin I < 0.015 - Rhythm Strip Rhythm Strip: Sinus Rhythm Rate: 75 Ectopy: None - EKG Initial EKG Interpretation: Sinus Rhythm, No Acute Injury Pattern, - - left axis. poor R wave progression. inferior Q waves. Prior: Changed - left axis is new, otherwise unchanged. - Medical Decision Making EKG shows new left axis compared to his old one with no acute injury pattern. His troponin is negative. His d-dimer is elevated even when corrected for age. Given his pleuritic symptoms, he was sent for CT angiography although he had a CT chest with contrast 3 days ago, it did not mention whether or not he had pulmonary emboli. With a history of cancer, he certainly is at a higher risk, however he has had no active treatment for the past [address] angiography showed similar findings to his CT 3 days ago with a spiculated mass suspicious for carcinoma as well as lymphadenopathy in the mediastinum, and no pulmonary embolus was seen. His discomfort is much improved on reevaluation while resting here in the emergency department. I had given him a GI cocktail, however he vomited it up immediately, and after all of that, his discomfort really was unchanged. It improved with observation and rest. Discussed with hospitalist for inpatient observation on telemetry. ED Disposition - Plan for ED Patient: Disposition: Acute Care Hospital [facility] Diagnosis: Chest pain, Atherosclerotic heart disease of [place] coronary artery without angina pectoris Referrals: Rogelio Green DO [Primary Care Provider] -
--- NOTE | 2018-10-07 03:37 | PCM.HP.STD ---
Problem List (1) Chest pain at rest Status: Acute History of Present Illness Date of Admission: 10/07/18 Chief Complaint: chest pain The patient is a 73 year old M with a significant history of small cell s/p chemo and radiation; CAD status post 5 stents with first stent placed at age 55 and last stent 2 years ago; who presented to the emergency department with chest pain that spun across his entire chest. His chest pain started at 10 PM, a few hours before presentation. He reported that his chest pain is brought on by coughing and also to by taking a deep breath. He has had a productive cough of black brownish sputum for the last 3 years but did not have any pain with coughing except the night of presentation. He denied any nausea or vomiting before arriving to the ED. However he was given viscous lidocaine at the emergency department following which he vomited. He attributed his vomiting to the viscous lidocaine. Also patient reported a brief episode of chills. He denied any fever. Reportedly CT scan 4 days ago showed showed a lung nodule. And patient is scheduled to have a PET scan on October 17, 2018. Repeat CT scan on presentation also showed right upper lobe nodule suspicious for neoplasm and right paratracheal enlarged lymph node possibly metastatic. His EKG showed left axis deviation. His troponin was unremarkable. He takes daily aspirin but he had ran out of aspirin Importantly his father from a massive heart attack at age 44. Past Medical History Past Medical History (Chronic Problems): Chronic Problems (Last Reviewed 10/07/18 @ 03:58 by Jayson Rajput MD) Paroxysmal atrial fibrillation (Chronic) Atherosclerotic heart disease of [place] coronary artery without angina pectoris (Chronic) PTCA/stent of the mid LAD, prox 1st diag, prox RCA 08/13/10; PTCA/BETO of the Ostial/Prox 1st diag 12/15/16 Dyspnea (Chronic) Fatigue (Chronic) Wheezing (Chronic) Long-term use of high-risk medication (Chronic) Primary small cell malignant neoplasm of lung, stage 3 (Chronic) Acute DVT (deep venous thrombosis) (Chronic) HLD (hyperlipidemia) (Chronic) Small cell lung cancer (Chronic) History of coronary artery stent placement (Chronic) PTCA/stent of the mid LAD, prox 1st diag, prox RCA 08/13/10; PTCA/BETO of the Ostial/Prox 1st diag 12/15/16 Obesity (BMI 30-39.9) (Chronic) Smoking addiction (Chronic) COPD (chronic obstructive pulmonary disease) (Chronic) HTN (hypertension) (Chronic) Medical History: Medical History (Last Reviewed 10/07/18 @ 03:58 by Jayson Rajput MD) Paroxysmal atrial fibrillation (Chronic) I48.0 Atherosclerotic heart disease of [place] coronary artery without angina pectoris (Chronic) I25.10 PTCA/stent of the mid LAD, prox 1st diag, prox RCA 08/13/10; PTCA/BETO of the Ostial/Prox 1st diag 12/15/16 Dyspnea (Chronic) R06.00 Fatigue (Chronic) R53.83 Wheezing (Chronic) R06.2 Long-term use of high-risk medication (Chronic) Z79.899 Primary small cell malignant neoplasm of lung, stage 3 (Chronic) C34.90 Acute DVT (deep venous thrombosis) (Chronic) I82.409 Nocturnal hypoxia (Acute) G47.34 Chest pain (Acute) R07.9 Radiation esophagitis (Acute) K20.8 Bradycardia (Acute) R00.1 HLD (hyperlipidemia) (Chronic) E78.5 Small cell lung cancer (Chronic) C34.90 Obesity (BMI 30-39.9) (Chronic) E66.9 Smoking addiction (Chronic) F17.200 COPD (chronic obstructive pulmonary disease) (Chronic) J44.9 HTN (hypertension) (Chronic) I10 GERD (gastroesophageal reflux disease) K21.9 History of DVT (deep vein thrombosis) Z86.718 PND (post-nasal drip) R09.82 Acute cystitis (Inactive) N30.00 Adjustment and management of vascular access device (Inactive) Z45.2 Chemotherapy induced nausea and vomiting (Inactive) R11.2, T45.1X5A DVT of upper extremity (deep vein thrombosis) (Inactive) I82.629 Encephalopathy (Inactive) G93.40 Lightheadedness (Inactive) R42 Pancytopenia (Inactive) D61.818 Sepsis (Inactive) A41.9 Allergies No Known Allergies Allergy (Verified 10/06/18 23:21) Home Medications: Ambulatory Orders Medication Instructions Recorded Multivit-Min/FA/Lycopen/Lutein 1 ea PO DAILY 10/14/16 [Centrum Silver Tablet] Ranitidine HCl [Acid Adjunct Latin Professor] 150 mg PO BID 10/14/16 aspirin 81 mg tablet,delayed 81 mg PO QDAY 12/19/17 release ascorbic acid (vitamin C) 500 mg 500 mg PO QDAY cap 12/20/17 capsule amiodarone 200 mg tablet 200 mg PO DAILY #90 tab 02/03/18 albuterol sulfate HFA 90 1 - 2 puff INHALATION Q4H PRN PRN 02/21/18 mcg/actuation aerosol inhaler #1 device cholecalciferol (vitamin D3) 5,000 5,000 unit PO DAILY 06/21/18 unit capsule nitroglycerin 0.4 mg sublingual 0.4 mg SUBLINGUAL PRN PRN #25 tab 06/21/18 tablet simvastatin 20 mg tablet 20 mg PO QHS 90 Days #90 tab 06/21/18 clopidogrel 75 mg tablet 75 mg PO DAILY #90 tab 10/04/18 Metoprolol Tartrate [Lopressor 50 mg PO BID 10/07/18 (beta darius)] Surgical History: Surgical History (Last Reviewed 10/07/18 @ 03:58 by Jayson Rajput MD) History of coronary artery stent placement (Chronic) Z95.5 PTCA/stent of the mid LAD, prox 1st diag, prox RCA 08/13/10; PTCA/BETO of the Ostial/Prox 1st diag 12/15/16 H/O percutaneous transluminal coronary angioplasty Z98.61 PTCA/stent of the mid LAD, prox 1st diag, prox RCA 08/13/10; PTCA/BETO of the Ostial/Prox 1st diag 12/15/16 Hx of appendectomy Z90.49 Surgical History: appendectomy, - - Cardiac stents. Lives: Spouse/ Significant Other Smoking Status: Former smoker - *Family History Maternal Family History: Family History (Last Reviewed 10/07/18 @ 03:59 by Jayson Rajput MD) Father Heart disease Mother Cancer Brother Diabetes Son Atrial fibrillation History Items: Cancer - Lung cancer Paternal Family History: Family History (Last Reviewed 10/07/18 @ 03:59 by Jayson Rajput MD) Father Heart disease Mother Cancer Brother Diabetes Son Atrial fibrillation History Items: Heart Disease Sibling Family History: Family History (Last Reviewed 10/07/18 @ 03:59 by Jayson Rajput MD) Father Heart disease Mother Cancer Brother Diabetes Son Atrial fibrillation History Items: Diabetes Review of Systems Constitutional: Reports: Chills. Denies: Fever, Weight Change HEENT: Denies: Head Aches, Sinus Congestion, Sinus Drainage Cardiovascular: Reports: Chest Pain. Denies: Palpitations Respiratory: Reports: Cough. Denies: Shortness of breath at rest, Sputum production Gastrointestinal: Reports: Vomiting - After receiving viscous lidocaine at the emergency department. Denies: Abdominal Pain, Nausea Genitourinary: Denies: Dysuria Musculoskeletal: Denies: Joint Pain, Joint Tenderness Skin: Denies: Rash, Wounds Neurological: Denies: Numbness, Tingling, Focal weakness Psychiatric: Denies: Anxiety, Depression, Homicidal Ideations, Suicidal Ideations Hematologic/ Lymphatic: Denies: Easy Bruising, Easy Bleeding VTE Information - Inpt Only VTE Present on Admission: No VTE Mechan Device Prophylaxis: None VTE Pharm Prophylaxis ordered?: Yes Patient Problems: Active and Suspected Problems (Last Reviewed 10/07/18 @ 03:58 by Jayson Rajput MD) Right upper lobe pulmonary nodule (Acute) Chest pain at rest (Acute) Chest pain (Acute) - Physical Exam General: Alert, Oriented x3, Cooperative HEENT: Atraumatic, PERRLA, EOMI, Normocephalic Neck: Supple, No JVD, Negative Carotid Bruits Lungs: Diminished - Mildly diminished at left lower base. Cardiovascular: Regular rate, No murmurs Abdomen: Bowel Sounds Present, Soft, Non Tender Extremities: No edema, Capillary Refill Less than 3 Seconds Skin: No rashes, No breakdown Musculoskeletal: No Tenderness to Palpation of Joints or Extremities Neurological: Neuro grossly intact Psych/Mental Status: Normal Affect, Appropriate Vital Signs Temp Pulse Resp BP Pulse Ox 98.1 F 78 18 124/78 H 97 10/06/18 23:18 10/07/18 02:40 10/07/18 02:40 10/07/18 02:40 10/07/18 02:40 Oxygen Flow Rate (L/min) 2 Oxygen Delivery Method Nasal Cannula Weight: 98.1 kg Body Mass Index (BMI) 29.7 Laboratory Tests Past 24 Hrs 10/06/18 10/06/18 10/06/18 23:30 23:30 23:30 WBC 11.8 H RBC 4.36 L Hgb 13.2 Hct 40.4 MCV 92.7 MCH 30.3 MCHC 32.7 RDW 13.2 RDW Differential 43.1 Plt Count 169 MPV 10.2 Immature Gran % (Auto) 0.200 Neut % (Auto) 68.4 Lymph % (Auto) 20.6 [place] % (Auto) 9.6 Eos % (Auto) 1.0 Baso % (Auto) 0.2 Absolute Neuts (auto) 8.1 H Absolute Lymphs (auto) 2.43 Total Counted Not Reportable D-Dimer Quant (PE/DVT) 0.88 H* Sodium 142 Potassium 4.6 Chloride 108 H Carbon Dioxide 28.0 Anion Gap 6 BUN 16 Creatinine 1.32 H Estim Creat Clear Calc 53.88 Est GFR (MDRD) Af Amer 69 Est GFR (MDRD) Non-Af 57 L BUN/Creatinine Ratio 12.1 Glucose 116 H Calcium 8.7 Troponin I < 0.015 Assessment/Plan All Active Problems (Last Reviewed 10/07/18 @ 03:58 by Jayson Rajput MD) Right upper lobe pulmonary nodule (Acute) Chest pain at rest (Acute) Nocturnal hypoxia (Acute) Chest pain (Acute) Radiation esophagitis (Acute) Bradycardia (Acute) The patient is a 73 year old M with a significant history of small cell s/p chemo and radiation; CAD status post 5 stents with first stent placed at age 55 and last stent 2 years ago; who presented to the emergency department with pleuritic chest pain. Chest pain Patient chest pain is more consistent with a muscular skeletal source of chest pain. Will order as needed guaifenesin with codeine. Because of patient extensive history of CAD with multiple stents who will rule out cardiac source of chest pain with a chemical stress test. 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 Admit to a monitored bed on PCU Chest x-ray showed chronic interstitial changes. Chronic right perihilar opacity with no radiographic evidence of acute cardiopulmonary process. Chest x-ray was independently reviewed. I agree with radiologist interpretation. EKG independently reviewed confirms left axis deviation. Old records reviewed showed sinus rhythm with normal axis Aspirin 325 mg x1 then ASA 81 mg p.o. daily continued Plavix continued Reportedly patient took nitroglycerin at home without any relief. Will hold off further nitroglycerin at this time. We will check lipid panel. High intensity statin x1 dose ordered. Serial cardiac enzymes Stat EKG as needed for chest pain Chemical Stress test in the AM if the cardiac enzymes are negative Metoprolol continued Simvastatin continued Hypertension On presentation his blood pressure was within goal. Metoprolol continued Trend blood pressure and adjust blood pressure medication. Paroxysmal A. fib Sinus rhythm on presentation. Amiodarone continued GERD Ranitidine continued Small cell lung cancer Chest x-ray and CT scan of chest consistent with right upper lung nodule and right paratracheal enlarged lymph node possibly metastatic. Patient to follow-up outpatient. DVT prophylaxis Subcutaneous Lovenox Code Visit OBSV E&M: 51613 Initial observation care L3
--- NOTE | 2018-10-07 03:57 | EKG12_ITS ---
Test Reason : AM EKG Blood Pressure : / mmHG Vent. Rate : 072 BPM Atrial Rate : 072 BPM P-R Int : 176 ms QRS Dur : 102 ms QT Int : 428 ms P-R-T Axes : 042 -18 021 degrees QTc Int : 468 ms Normal sinus rhythm Low voltage QRS Borderline ECG When compared with ECG of 06-OCT-2018 23:22, MANUAL COMPARISON REQUIRED, DATA IS UNCONFIRMED Confirmed by ELEAZAR RODRIGUEZ, NIRMAL ([id number]), editorial manager NIKITA HELTON ([id number]) on 10/11/2018 8:13:59 AM Referred By: DR LATHAM Confirmed By:NIRMAL BUSH MD
[2018-10-07] MEDS: Aspirin 325 MG Tablet PO (04:47)
[2018-10-07] MEDS: Clopidogrel Bisulfate 75 MG Tablet PO (06:34)
[2018-10-07] MEDS: Famotidine 20 MG Tablet PO (10:39)
[2018-10-07] MEDS: Amiodarone 200 MG Tablet PO (10:39)
[2018-10-07] MEDS: Metoprolol Tartrate 50 MG Tablet PO (10:39)
--- NOTE | 2018-10-07 10:41 | NURSING ---
[facility] late d/t pt being off unit @ stress
--- NOTE | 2018-10-07 10:52 | STRESSREP ---
Stress Test Report Pharmacologic myocardial perfusion stress test. 73-year-old man with a history of chest pain. Stress protocol; Resting EKG demonstrates sinus rhythm with a rate of 66 bpm normal intervals are noted resting blood pressure 120/68 mmHg. 0.4 mg of regadenoson was infused per usual protocol followed by rapid intravenous and flush injection continuous EKG monitoring was performed. The maximum heart rate was 87 bpm which was 58% of maximum predicted heart rate the maximum workload was 1 metabolic equivalent. At rest there were nonspecific ST-T wave changes noted with no meet the criteria for ischemia at peak infusion nonspecific ST-T wave changes were noted. The resting blood pressure 120/68 with a final blood pressure 102/64. Myocardial perfusion protocol. 14.6 mCi of technetium 99m sestamibi was injected at rest. 0.4 mg of regadenoson was infused per usual protocol peak infusion 44.8 mCi of technetium 99m sestamibi was injected stress images were obtained stress and rest images were reconstructed and compared in the short axis vertical long horizontal long axis. Gated images were also obtained per Perfusion SPECT analysis: Review of the stress images demonstrate normal uptake of tracer noted in all areas of myocardium. There is a small portion of the apex with mildly reduced perfusion. The resting images demonstrate a similar finding. A small previous anterior infarct with minimal kashif-infarct ischemia cannot be completely excluded however it does not appear that this is significant ischemia. Gated SPECT analysis: The gated ejection fraction is noted to be 89%. Conclusion: Probably normal pharmacologic myocardial perfusion stress test. Preserved ejection fraction.
--- NOTE | 2018-10-07 13:02 | PCM.DC ---
- Discharge Diagnoses Current Active Problems: Current Active and Chronic Problems (Last Reviewed 10/07/18 @ 03:58 by Jayson Rajput MD) Right upper lobe pulmonary nodule (Acute) Chest pain at rest (Acute) Atherosclerotic heart disease of [place] coronary artery without angina pectoris (Chronic) PTCA/stent of the mid LAD, prox 1st diag, prox RCA 08/13/10; PTCA/BETO of the Ostial/Prox 1st diag 12/15/16 Chest pain (Acute) Reason(s) for Visit for Discharge Instructions: Chest pain You will use the following diet at home:: Calorie/Carbohydrate Controlled (specify 1200, 1400, etc) Your food should be the consistency of: Regular Your liquids should be the consistency of: Regular/Thin Discharge Activity: Return to Normal Activity Additional Instructions: Continue on a low fat, low salt diet. Continue to remain active Allergies/Adverse Reactions: Allergies No Known Allergies Allergy (Verified 10/06/18 23:21) Medications to take at Discharge Multivit-Min/FA/Lycopen/Lutein [Centrum Silver Tablet] 1 ea PO DAILY 10/14/16 Ranitidine HCl [Acid Rpg Programmer Analyst] 150 mg PO BID 10/14/16 aspirin 81 mg tablet,delayed release 81 mg PO QDAY 12/19/17 ascorbic acid (vitamin C) 500 mg capsule 500 mg PO QDAY cap 12/20/17 amiodarone 200 mg tablet 200 mg PO DAILY #90 tab 02/03/18 albuterol sulfate HFA 90 mcg/actuation aerosol inhaler 1 - 2 puff INHALATION Q4H PRN PRN #1 device 02/21/18 cholecalciferol (vitamin D3) 5,000 unit capsule 5,000 unit PO DAILY 06/21/18 nitroglycerin 0.4 mg sublingual tablet 0.4 mg SUBLINGUAL PRN PRN #25 tab 06/21/18 simvastatin 20 mg tablet 20 mg PO QHS 90 Days #90 tab 06/21/18 clopidogrel 75 mg tablet 75 mg PO DAILY #90 tab 10/04/18 Metoprolol Tartrate [Lopressor (beta darius)] 50 mg PO BID 10/07/18 Primary Care Physician: Rogelio Green DO [Primary Care Provider] - Please follow up with your Primary Care Physician in: within 1-2 weeks Test Results: Test results from this visit will be discussed in further detail at your follow-up appointment, if applicable. Please Follow Up With: David Brady MD When: within 1-2 weeks Proposed Discharge Date: 10/07/18
--- NOTE | 2018-10-07 13:04 | DS.PCM_ITS ---
Discharge Date and Diagnosis - Problem List Patient Problems: Active and Suspected Problems (Last Reviewed 10/07/18 @ 03:58 by Jayson Rajput MD) Right upper lobe pulmonary nodule (Acute) Date of Admission: 10/07/18 Date of Discharge: 10/07/18 - Primary Discharge Diagnosis Active and Suspected Problems (Last Reviewed 10/07/18 @ 03:58 by Jayson Rajput MD) Right upper lobe pulmonary nodule (Acute) Chest pain at rest (Acute) Chest pain (Acute) - Secondary Discharge Diagnosis Chronic Problems (Last Reviewed 10/07/18 @ 03:58 by Jayson Rajput MD) Paroxysmal atrial fibrillation (Chronic) Atherosclerotic heart disease of [place] coronary artery without angina pectoris (Chronic) PTCA/stent of the mid LAD, prox 1st diag, prox RCA 08/13/10; PTCA/BETO of the Ostial/Prox 1st diag 12/15/16 Dyspnea (Chronic) Fatigue (Chronic) Wheezing (Chronic) Long-term use of high-risk medication (Chronic) Primary small cell malignant neoplasm of lung, stage 3 (Chronic) Acute DVT (deep venous thrombosis) (Chronic) HLD (hyperlipidemia) (Chronic) Small cell lung cancer (Chronic) History of coronary artery stent placement (Chronic) PTCA/stent of the mid LAD, prox 1st diag, prox RCA 08/13/10; PTCA/BETO of the Ostial/Prox 1st diag 12/15/16 Obesity (BMI 30-39.9) (Chronic) Smoking addiction (Chronic) COPD (chronic obstructive pulmonary disease) (Chronic) HTN (hypertension) (Chronic) Hospital Course and Treatment Imaging Results: 10/07/18 05:55 Nuclear Stress Test - Chemical [NM] AM (NON MEDS) Clinical Impression(s) from Imaging Studies Chest X-Ray 10/06/18 23:43 IMPRESSION: Chronic interestitial changes. Chronic right perihilar opacity. No radiographic evidence of acute cardiopulmonary disease. at 0017 Reported and signed by: Solomon Sargent MD Electronically Signed: Solomon Sargent, at 0:15 EDT Tel , Service support , Chest CTA 10/07/18 00:19 IMPRESSION: No acute interval change. No pulmonary embolus. Findings similar to the 10/03/18 CT include a nodule in the right upper lung suspicious for neoplasm, and a right paratracheal enlarged lymph node possibly metastatic. Individualized dose optimization techniques were used for this CT. at 0154 Reported and signed by: Solomon Sargent MD Electronically Signed: Solomon Sargent, at 1:53 EDT Tel , Service support , None Operations: None Procedures: Stress test Summary of Care Provided: The patient is a 73 year old M with past medical history of small cell cancer, last had chemotherapy and radiation a year ago, CAD status post stent, follows with Dr. Brady who comes in with complaints of chest pain. His admitting EKG showed no acute abnormalities. Troponins were negative. Patient was admitted to the telemetry floor. Underwent stress test that was negative. Patient Problems: Active and Suspected Problems (Last Reviewed 10/07/18 @ 03:58 by Jayson Rajput MD) Right upper lobe pulmonary nodule (Acute) Subjective: On the day of discharge, patient was seen and examined. Stress test was negative. No acute events overnight. Denied any more chest pain or dizziness or palpitation. - Physical Exam General: Alert, Oriented x3, Cooperative, No apparent distress HEENT: Atraumatic, PERRLA, EOMI, Normocephalic Neck: Supple Lungs: Clear to auscultation, Normal air movement Cardiovascular: Regular rate, Regular Rhythm, Normal S1, Normal S2, No murmurs Abdomen: Bowel Sounds Present, Soft, Non Tender, Non-Distended, No Hepato- splenomegaly Extremities: No edema Skin: No rashes Musculoskeletal: No Tenderness to Palpation of Joints or Extremities Lymphatic: No Cervical, Supraclavicular, or Inguinal Adenopathy Neurological: Cranial nerves II-XII grossly intact Psych/Mental Status: Normal Affect, Appropriate Vital Signs Temp Pulse Resp BP Pulse Ox 98.0 F 69 18 117/67 94 10/07/18 10:40 10/07/18 10:59 10/07/18 10:40 10/07/18 10:40 10/07/18 10:40 Oxygen Flow Rate (L/min) 2 Oxygen Delivery Method Room Air Weight: 96.3 kg Body Mass Index (BMI) 29.6 Intake and Output for Last 24 Hours 10/05/18 10/06/18 10/07/18 23:59 23:59 23:59 Intake Total 290 / 290 Balance 290 / 290 Laboratory Tests Past 24 Hrs 10/06/18 10/06/18 10/06/18 23:30 23:30 23:30 WBC 11.8 H RBC 4.36 L Hgb 13.2 Hct 40.4 MCV 92.7 MCH 30.3 MCHC 32.7 RDW 13.2 RDW Differential 43.1 Plt Count 169 MPV 10.2 Immature Gran % (Auto) 0.200 Neut % (Auto) 68.4 Lymph % (Auto) 20.6 [place] % (Auto) 9.6 Eos % (Auto) 1.0 Baso % (Auto) 0.2 Absolute Neuts (auto) 8.1 H Absolute Lymphs (auto) 2.43 Total Counted Not Reportable D-Dimer Quant (PE/DVT) 0.88 H* Sodium 142 Potassium 4.6 Chloride 108 H Carbon Dioxide 28.0 Anion Gap 6 BUN 16 Creatinine 1.32 H Estim Creat Clear Calc 53.88 Est GFR (MDRD) Af Amer 69 Est GFR (MDRD) Non-Af 57 L BUN/Creatinine Ratio 12.1 Glucose 116 H Calcium 8.7 Troponin I < 0.015 10/07/18 10/07/18 10/07/18 06:56 11:12 12:10 WBC RBC Hgb Hct MCV MCH MCHC RDW RDW Differential Plt Count MPV Immature Gran % (Auto) Neut % (Auto) Lymph % (Auto) [place] % (Auto) Eos % (Auto) Baso % (Auto) Absolute Neuts (auto) Absolute Lymphs (auto) Total Counted D-Dimer Quant (PE/DVT) Sodium Potassium Chloride Carbon Dioxide Anion Gap BUN Creatinine Estim Creat Clear Calc Est GFR (MDRD) Af Amer Est GFR (MDRD) Non-Af BUN/Creatinine Ratio Glucose Calcium Troponin I < 0.015 < 0.015 < 0.015 Discharge Diet: Low fat/ Low Cholesterol, 2000 mg Sodium Diet Discharge Activity: Return to Normal Activity Home Medications: Medications to take at Discharge Multivit-Min/FA/Lycopen/Lutein [Centrum Silver Tablet] 1 ea PO DAILY 10/14/16 Ranitidine HCl [Acid Supervisor Fabrication [employer] Assembly] 150 mg PO BID 10/14/16 aspirin 81 mg tablet,delayed release 81 mg PO QDAY 12/19/17 ascorbic acid (vitamin C) 500 mg capsule 500 mg PO QDAY cap 12/20/17 amiodarone 200 mg tablet 200 mg PO DAILY #90 tab 02/03/18 albuterol sulfate HFA 90 mcg/actuation aerosol inhaler 1 - 2 puff INHALATION Q4H PRN PRN #1 device 02/21/18 cholecalciferol (vitamin D3) 5,000 unit capsule 5,000 unit PO DAILY 06/21/18 nitroglycerin 0.4 mg sublingual tablet 0.4 mg SUBLINGUAL PRN PRN #25 tab 06/21/18 simvastatin 20 mg tablet 20 mg PO QHS 90 Days #90 tab 06/21/18 clopidogrel 75 mg tablet 75 mg PO DAILY #90 tab 10/04/18 Metoprolol Tartrate [Lopressor (beta darius)] 50 mg PO BID 10/07/18 Primary Care Physician: Rogelio Green DO [Primary Care Provider] - Please follow up with your Primary Care Physician in: within 1-2 weeks Please Follow Up With: David Brady MD When: within 1-2 weeks Disposition: Home Minutes spent on discharge:: 40 Patient Condition:: Stable Medical Necessity - Tobacco Use Smoking Status: Former smoker Tobacco Use: Non-smoker Meaningful Use Info Meaningful Use Diagnoses (Choose all that apply): None applicable Code Visit OBSV E&M: 89272 Observation care discharge
== END 2018-10-07 12:58 | disposition home or self-care (01) ==
LOC: ED 10-07 02:57 → PCU 10-07 03:27
PROVIDERS: Admitting Provider Hospitalist; Emergency Provider Emergency Medicine; Family Provider Family Medicine; PCP Family Medicine; Visit Provider Internal Medicine
DX: R07.89 Other chest pain (principal); R06.02 Shortness of breath; I25.10 Atherosclerotic heart disease of native coronary artery without angina pectoris; J44.9 Chronic obstructive pulmonary disease, unspecified; E78.5 Hyperlipidemia, unspecified; I48.0 Paroxysmal atrial fibrillation; I10 Essential (primary) hypertension; K21.9 Gastro-esophageal reflux disease without esophagitis; Z85.118 Personal history of other malignant neoplasm of bronchus and lung; Z92.21 Personal history of antineoplastic chemotherapy; Z86.711 Personal history of pulmonary embolism; Z86.718 Personal history of other venous thrombosis and embolism; Z87.891 Personal history of nicotine dependence; Z95.5 Presence of coronary angioplasty implant and graft; Z79.899 Other long term (current) drug therapy; Z79.02 Long term (current) use of antithrombotics/antiplatelets; Z79.82 Long term (current) use of aspirin
CPT/HCPCS: 36415; 71045; 71275; 78452; 80048; 84484; 85025; 85379; 93005; 93017; 96360; 96361; 99218; 99285; A9500; J7030; Q9967; A4216; G0378; J2785

== ENCOUNTER → 2018-10-27 | Outpatient (CLI) | payer OTHER, MEDICARE, SELFPAY ==
[2016-12-24 11:34] VITALS: BMI 28.1
[2018-10-07 03:38] VITALS: BMI 29.6
[2018-10-27 08:01] LABS: Absolute Lymphocyte Count 1.47 X10^3/ul (0.83-4.51); Absolute Neutrophil Count 5.1 X10^3/uL (2.0-7.7); Basophil# 0.02 X10^3/uL; Basophil% 0.3 % (0-1); Eosinophil# 0.12 X10^3/uL; Eosinophils% 1.6 % (0-5); Hematocrit 37.4 % (40-54); Hemoglobin 12.1 g/dl (13.0-16.5); Lymphocyte # 1.47 X10^3/ul (4.0); Lymphocyte % 19.9 % (19-41); Mean Corp Hgb Conc 32.4 g/gl (32-36); Mean Corpuscular Hgb 29.7 pg (27.0-32.0); Mean Corpuscular Volume 91.7 fL (80-94); Mean Platelet Vol. 9.7 fl (6.2-12.0); Monocyte# 0.61 X10^3/uL; Monocyte% 8.3 % (0-10); Neutrophil # 5.14 X10^3/uL (2.7-7.7); Neutrophil % 69.8 % (47-70); Platelet Count 151 K/mm3 (150-450); RBC Distribution Width CV 13.1 % (11.6-14.6); Red Blood Count 4.08 M/mm3 (4.6-6.2); White Blood Count 7.4 K/mm3 (4.4-11.0)
[2018-10-27 08:02] LABS: POSITIVE COUNT NO; POSITIVE DIFFERENTIAL NO; POSITIVE MORPHOLOGY NO
[2018-10-27 08:23] LABS: ALB/GLOB Ratio 0.8 RATIO (0.9-2.4); AST(SGOT) 13 U/L (15-37); Alanine Aminotransfer ALT/SGPT 13 U/L (16-61); Albumin, Serum 3.2 g/dL (3.2-5.0); Alkaline Phosphatase 74 U/L (45-117); Anion Gap 6 (5-15); BUN 17 mg/dL (7-18); BUN/Creat Ratio 14.9 RATIO (10-20); Calcium,Total 8.9 mg/dL (8.5-10.1); Chloride 106 mmol/L (98-107); Creatinine, Serum 1.14 mg/dL (0.70-1.30); EST Glomerular Filtration Rate 67 mL/min (>60); Est Glom Filt Rate - Afr Amer 81 mL/min (>60); Globulin 4.2 g/dL (2.2-4.2); Glucose 98 mg/dL (74-106); LDH 182 U/L (87-241); Potassium 4.1 mmol/L (3.5-5.1); Protein, Total 7.4 g/dL (6.4-8.2); Sodium Level 141 mmol/L (136-145)
[2018-10-27 08:28] LABS: AST(SGOT) 14 U/L (15-37); Alanine Aminotransfer ALT/SGPT 13 U/L (16-61); Albumin, Serum 3.1 g/dL (3.2-5.0); Alkaline Phosphatase 74 U/L (45-117); Bilirubin, Direct 0.14 mg/dL (0.00-0.30); Cholesterol 102 mg/dL (200); Globulin 4.1 g/dL (2.2-4.2); High Density Lipoprotein 33 mg/dL; Protein, Total 7.2 g/dL (6.4-8.2); Triglycerides 137 mg/dL; Very Low Density Lipoprotein 27 mg/dL (5-40)
[2018-10-27 08:32] LABS: T4 Total, Thyroxin 14.3 ug/dL (4.5-12.1); Thyroid Stim Hormone (TSH) < 0.01 uIU/mL (0.358-3.74)
== END | disposition home or self-care (01) ==
LOC: LAB 07:29
PROVIDERS: Internal Medicine Cardiovascular Disease; Physician Assistant Medical; Family Provider Family Medicine; PCP Family Medicine; Referring Provider Internal Medicine Medical Oncology; Visit Provider Internal Medicine Medical Oncology
DX: C34.90 Malignant neoplasm of unspecified part of unspecified bronchus or lung (principal); E78.5 Hyperlipidemia, unspecified; Z79.899 Other long term (current) drug therapy
CPT/HCPCS: 36415; 80053; 80061; 80076; 83615; 84436; 84443; 85025

== ENCOUNTER → 2018-11-03 | Outpatient (CLI) | payer OTHER, MEDICARE, SELFPAY ==
[2016-12-24 11:34] VITALS: BMI 28.1
[2018-10-27 08:56] VITALS: BMI 29.5
[2018-11-02 17:47] LABS: Hematocrit 36.6 % (40-54); Hemoglobin 11.9 g/dl (13.0-16.5); Mean Corp Hgb Conc 32.5 g/gl (32-36); Mean Corpuscular Hgb 29.8 pg (27.0-32.0); Mean Corpuscular Volume 91.7 fL (80-94); Platelet Count 174 K/mm3 (150-450); RBC Distribution Width CV 13.1 % (11.6-14.6); RBC Distribution Width SD 43.9 fl (35.1-43.9); Red Blood Count 3.99 M/mm3 (4.6-6.2); White Blood Count 8.7 K/mm3 (4.4-11.0)
[2018-11-02 17:48] LABS: Absolute Lymphocyte Count 2.14 X10^3/ul (0.83-4.51); Absolute Neutrophil Count 5.6 X10^3/uL (2.0-7.7); Basophil# 0.03 X10^3/uL; Basophil% 0.3 % (0-1); Eosinophils% 1.2 % (0-5); International Normalized Ratio 1.2; Lymphocyte # 2.14 X10^3/ul (4.0); Lymphocyte % 24.7 % (19-41); Mean Platelet Vol. 10.2 fl (6.2-12.0); Monocyte# 0.79 X10^3/uL; Monocyte% 9.1 % (0-10); Neutrophil # 5.58 X10^3/uL (2.7-7.7); Neutrophil % 64.5 % (47-70); POSITIVE COUNT NO; POSITIVE DIFFERENTIAL NO; POSITIVE MORPHOLOGY NO; Partial Thromboplast Time 30.7 Seconds (24.1-36.2); Prothrombin Time (Protime)PT. 14.6 SECONDS (11.7-14.9)
[2018-11-03] VITALS (11 sets, daily range): BP systolic 100–136; BP diastolic 57–87; PULSE 66–71; RESP 16–20; TEMP 37.2; O2SAT 93–100; BMI 29.5
--- NOTE | 2018-11-03 | IMM_PTH ---
PATIENT: ALEXANDRA WALTER Jr. LOC: CT U#:[id number] AGE/SX: 73/M ROOM: RE11/03/[address]: Dr. Jayson Ayon MD : 1945 BED: DIS: 11/03/2018 SPEC #: [id number] RECD: 11/04/18 12:59 STATUS: SOUBeatriz REQ #: [id number] ABEBA: 11/03/18 00:[address]: Jayson Ayon DEPT: IMMUNOHISTOCHEMISTRY RECD BY: Radha Graham ENTERED: 11/04/18 13:00 SP TYPE: IMMUNO OTHR DR: Dr. Rogelio Green DO Tissues: Lung, NOS Procedures: RCC (add) NAPSIN A (add) CK20 (add) CK5-6 (add) CK7 (add) CK8 (add) HEP PAR (add) TTF1 (add) Pankeratin (initial) P40 (add) PSAP (add) PHYSICIAN & INSTITUTION [place] [phone] SPECIMEN INFORMATION: Tissue Source: Right posterior lung mass, CT-guided biopsy Clinical Info: Right lung mass Specimen Number: [id number] CPT code: 38568, 74299 x10 METHODOLOGY: Deparaffinized sections of prefer/formalin-fixed tissue or PAP/DQ stained slides are incubated with monoclonal/polyclonal antibodies/oligonucleotide probes. Localization is made via biotin free immunoperoxidase method. Appropriate controls are performed and reacted as expected. Results on target cell population are indicated in the following table: RESULTS: ANTIBODY / CLONE RESULT AE1-3 (AE1/AE3/PCK26) positive CK7 (OV-TL12/30) positive CK8 (50yarpA07) positive CK20 (KS20.8) negative TTF-1 (8G7G3/1) negative Napsin A (Rabbit Polyclonal) negative HepPar (OCh1E5) negative RCC (PN-15) negative PSAP (PASE/4LJ) negative CK5-6 (D5 & 1684) positive P40 (BC28) positive These tests were developed and their performance characteristics determined by [facility]. They may not have been cleared or approved by the U.S. Food and Drug Administration. The FDA has determined that such clearance or approval is not necessary. INTERPRETATION: Right posterior lung mass, CT-guided biopsy: Non-small cell carcinoma, favor squamous cell carcinoma. SJ:beny 11/07/18 Case has been reviewed in consultation with Dr. Fernandez who concurs with the above diagnosis. IDC:CE
--- NOTE | 2018-11-03 08:06 | CT_ITS ---
PROCEDURE: CT GUIDED CORE NEEDLE BIOPSY OF A right upper lobe LUNG LESION INDICATION: Male, 73 years old. History of a small cell carcinoma. Small right upper lobe nodule. PHYSICIAN: Dr. Oswaldo RODRIGUEZ CONSENT: Written informed consent was obtained having explained the risks, benefits and alternatives in detail with the patient who accepted the risks and agreed to proceed. Laboratory review and clinical assessment was performed. CONSCIOUS SEDATION PROTOCOL: The Drugs used were: 3 mg Versed, IV., and 75 mcg Fentanyl, IV. The sedation time was: 24 minutes. Conscious sedation was started at 9:31 AM and terminated at 9:55 AM. The conscious sedation protocol was independently monitored. RADIATION DOSAGE (If Supplied By Facility): CTDIvol = ( 9 ) mGy, DLP = ( 416.21 ) mGycm Individualized dose optimization techniques were used for this CT. TECHNIQUE: The patient was placed in the prone position. A noncontrast CT was performed to localize the lesion in the posterior right upper lobe . The skin surface was prepped and draped in a sterile fashion. 1% lidocaine was used for local anesthesia. Using CT guidance, a 28 coaxial biopsy device was advanced to the periphery of the lesion. A total of 3 core specimens were obtained. The specimens were placed in a formalin solution. A post procedure CT demonstrated no adverse sequelae or pneumothorax. The patient tolerated the procedure well without adverse event. A negative biopsy does not exclude malignancy. Further imaging or clinical followup based on patient condition and degree of clinical suspicion for malignancy. Suggest rebiopsy, if biopsy results do not match with clinical scenario. CT/Biopsy/Inj or Needle Placement IMPRESSION: 1. CT directed core needle biopsy of the right upper lobe nodule using CT image guidance with image documentation as described. Pathology results are pending. 2. Conscious Sedation protocol utilized with independent monitoring. Electronically Signed: Miguel Chacon, at 11:23 EDT , Service support ,
--- NOTE | 2018-11-03 09:01 | RAD_ITS ---
STUDY: X-RAY CHEST REASON FOR EXAM: Male, 73 years old. Status post left lung biopsy. TECHNIQUE: AP inspiration and expiration views. COMPARISON: Comparison is made with prior chest radiograph dated October 07, 2018. FINDINGS: EKG electrodes are seen. The patient is status post left lung biopsy. There is no evidence of pneumothorax on the immediate post lung biopsy radiograph. RAD/Chest Insp/Exp 2 View IMPRESSION: No evidence of pneumothorax on the immediate post left lung biopsy radiographs. Electronically Signed: Miguel Chacon, at 10:49 EDT , Service support ,
[2018-11-03] MEDS: Midazolam 2 MG/2 ML Syringe IV ×2 (09:31→09:57)
[2018-11-03] MEDS: fentaNYL 100 MCG/2 ML Ampul IV ×2 (09:31→09:57)
--- NOTE | 2018-11-03 09:50 | ASPIGT_PTH ---
PATIENT: ALEXANDRA WALTER Jr. LOC: [place] U#:[id number] AGE/SX: 73/M ROOM: RE11/03/[address]: Dr. Jayson Ayon MD : 1945 BED: DIS: 11/03/2018 SPEC #: [id number] RECD: 11/03/18 11:27 STATUS: INEZ REEduar #: [id number] ABEBA: 11/03/18 09:[address]: Jayson Ayon DEPT: SURGICAL PATHOLOGY RECD BY: Sonido Smith ENTERED: 11/03/18 11:28 SP TYPE: ASP RAD OTHR DR: Dr. Rogelio Green DO Tissues: Right lung, NOS Procedures: FNA Specimen Adequacy Special Stain Group II Surgery Specimen Level IV Imprint (control) HEADER OPERATION: CT-guided lung biopsy PRE-OP DIAGNOSIS: Right lung mass TISSUE SUBMITTED: Right posterior lung mass 20 gauge core x3 MICROSCOPIC DIAGNOSIS Right posterior lung mass, CT-guided core biopsy: Non-small cell carcinoma, favor squamous cell carcinoma. See comment. SJ:rg 11/07/18 COMMENT The specimen is evaluated at the time of biopsy by Dr. Saucedo. Immediate Evaluation = Malignant cells present. Case has been reviewed in consultation with Dr. Fernandez who concurs with the above diagnosis. IDC:CE The uninvolved lung parenchymal tissue also shows extensive fibrosis and acute and chronic inflammation. Immunohistochemistry ([id number]) supports the above diagnosis. As per EMR, the patient has history of small cell carcinoma status post chemotherapy and radiation therapy. Molecular studies on the tumor can be performed, if clinically indicated. Please notify the laboratory if needed. Case has been reviewed in consultation with Dr. Fernandez who concurs with the above diagnosis. IDC:CE MICROSCOPIC DESCRIPTION Slides are reviewed. GROSS DESCRIPTION Received in fixative is one container labeled with the patient's name and designated right lung CT-guided core biopsy. The specimen consists of multiple irregular fragments of norris soft tissue that in aggregate measure 1 x 0.1 x <0.1 cm. The specimen is totally submitted in one cassette. Two touch imprints are prepared at the time of core biopsy. / GREG:beny 11/03/18 TC:0 CPT: 41578, 97035
--- NOTE | 2018-11-03 12:10 | RAD_ITS ---
STUDY: X-RAY CHEST REASON FOR EXAM: Male, 73 years old. 2 hour right lung biopsy radiograph. TECHNIQUE: AP inspiration and expiration views. COMPARISON: Comparison is made with prior study done earlier in the day. FINDINGS: The patient is status post biopsy of the right upper lobe nodule. There is no evidence of pneumothorax on the delayed images. RAD/Chest Insp/Exp 2 View IMPRESSION: No evidence of pneumothorax on the 2 hour post right lung biopsy radiographs. Electronically Signed: Miguel Chacon, at 12:43 EDT , Service support ,
== END | disposition home or self-care (01) ==
LOC: CT 08:03
PROVIDERS: Family Provider Family Medicine; PCP Family Medicine; Referring Provider Internal Medicine Medical Oncology; Visit Provider Internal Medicine Medical Oncology
DX: C34.11 Malignant neoplasm of upper lobe, right bronchus or lung (principal); J44.9 Chronic obstructive pulmonary disease, unspecified; I25.10 Atherosclerotic heart disease of native coronary artery without angina pectoris; Z85.118 Personal history of other malignant neoplasm of bronchus and lung; Z86.718 Personal history of other venous thrombosis and embolism; Z86.2 Personal history of diseases of the blood and blood-forming organs and certain disorders involving the immune mechanism; Z92.21 Personal history of antineoplastic chemotherapy; Z92.3 Personal history of irradiation; Z95.5 Presence of coronary angioplasty implant and graft
CPT/HCPCS: 32405; 36415; 71046; 77012; 85025; 85610; 85730; 88172; 88305; 88307; 88313; 88341; 88342; 99156; 99157; J7040; A4216

== ENCOUNTER 2018-11-15 05:55 | Day surgery (SDC) | payer OTHER, MEDICARE, SELFPAY ==
[2016-12-24 11:34] VITALS: BMI 28.1
[2018-11-11 10:28] VITALS: BMI 287.0
--- NOTE | 2018-11-11 10:43 | HP_ITS ---
Intake Vital Signs 11/11/18 Body Mass Index (BMI) 287.0 11/11/18 Height 5 ft 11 in 11/11/18 Weight: 208 lb 11/11/18 Body Mass Index (BMI) 29.0 11/11/18 Blood Pressure 107/71 11/11/18 Blood Pressure Location Rt brachial 11/11/18 Blood Pressure Position Sitting 11/11/18 Respiratory Rate 18 11/11/18 Pulse Rate 111 H 11/11/18 Pulse Source Monitor 11/11/18 Temperature 97.8 F 11/11/18 Temperature Source Oral 11/11/18 Pulse Ox 93 11/11/18 Oxygen Delivery Method room air Intake Visit Reasons: Port Placement Consult Chief Complaint: F/u for SCLC. Data Analysis Assistant Required: No Is patient in pain?: No Allergies No Known Allergies Allergy (Verified 11/11/18 10:27) Medications Multivit-Min/FA/Lycopen/Lutein [Centrum Silver Tablet] 1 ea PO DAILY 10/14/16 [History Confirmed 11/11/18] Ranitidine HCl [Acid Ac/Dc Rewinder] 150 mg PO BID 10/14/16 [History Confirmed 11/11/18] aspirin 81 mg tablet,delayed release 81 mg PO QDAY 12/19/17 [History Confirmed 11/11/18] ascorbic acid (vitamin C) 500 mg capsule 500 mg PO QDAY cap 12/20/17 [History Confirmed 11/11/18] albuterol sulfate HFA 90 mcg/actuation aerosol inhaler 1 - 2 puff INHALATION Q4H PRN PRN #1 device 02/21/18 [Rx Confirmed 11/11/18] cholecalciferol (vitamin D3) 5,000 unit capsule 5,000 unit PO DAILY 06/21/18 [History Confirmed 11/11/18] nitroglycerin 0.4 mg sublingual tablet 0.4 mg SUBLINGUAL PRN PRN #25 tab 06/21/18 [Rx Confirmed 11/11/18] simvastatin 20 mg tablet 20 mg PO QHS 90 Days #90 tab 06/21/18 [Rx Confirmed 11/11/18] clopidogrel 75 mg tablet 75 mg PO DAILY #90 tab 10/04/18 [Rx Confirmed 11/11/18] Metoprolol Tartrate [Lopressor (beta darius)] 50 mg PO BID 10/07/18 [History Confirmed 11/11/18] amiodarone 200 mg tablet 100 mg PO DAILY #90 tab 10/27/18 [Rx Confirmed 11/11/18] Megestrol Acetate [Megace Udc] 400 mg PO DAILY 30 Days #300 ml 11/10/18 [Rx Confirmed 11/11/18] [facility] Medical History Paroxysmal atrial fibrillation (Chronic) Atherosclerotic heart disease of [place] coronary artery without angina pectoris (Chronic) Dyspnea (Chronic) Fatigue (Chronic) Wheezing (Chronic) Long-term use of high-risk medication (Chronic) Primary small cell malignant neoplasm of lung, stage 3 (Chronic) Acute DVT (deep venous thrombosis) (Chronic) Nocturnal hypoxia (Acute) Chest pain (Acute) Radiation esophagitis (Acute) Bradycardia (Acute) HLD (hyperlipidemia) (Chronic) Small cell lung cancer (Chronic) Obesity (BMI 30-39.9) (Chronic) Smoking addiction (Chronic) COPD (chronic obstructive pulmonary disease) (Chronic) HTN (hypertension) (Chronic) GERD (gastroesophageal reflux disease) (Acute) History of DVT (deep vein thrombosis) (Acute) PND (post-nasal drip) (Acute) Acute cystitis (Inactive) Adjustment and management of vascular access device (Inactive) Chemotherapy induced nausea and vomiting (Inactive) DVT of upper extremity (deep vein thrombosis) (Inactive) Encephalopathy (Inactive) Lightheadedness (Inactive) Pancytopenia (Inactive) Sepsis (Inactive) Surgical History History of coronary artery stent placement (Chronic) H/O percutaneous transluminal coronary angioplasty (Resolved) Hx of appendectomy (Resolved) Family History Father Heart disease Mother Cancer Brother Diabetes Son Atrial fibrillation Social History Smoking Status: Former smoker how long ago did patient quit smokin years ago second hand exposure: No alcohol intake: never substance use type: does not use caffeine: Yes Type: tea Number of servings: 2 what type of physical activity do you participate in: none HPI HPI HPI: ALEXANDRA WALTER, is a 73 M who presents to the office today for HPI HPI Surgical H&P: Yes HPI: ALEXANDRA WALTER, is a 73 M who presents to the office today for port placement. Patient was diagnosed with small cell lung cancer on the right and was treated with chemotherapy and radiation in 2016. Patient did have a right arm port at that time which did get a DVT and was removed about 2 years ago. On follow-up patient was noted to have a new spiculated right lung nodule CT biopsy was recently done results pending. Patient is planning to start chemotherapy on 11/17/2018. ROS General General: Yes weight change; no fatigue, colon cancer, breast cancer or weakness HEENT HEENT: No difficulty swallowing, eye injury, eye surgery, swollen glands or hoarseness Endo Endocrine: Yes thyroid disease; no diabetes mellitus, thyroid cancer, Hair loss, heat intolerance or cold intolerance Skin Skin: No rash or changing moles Breast Breast: No left breast lump, right breast lump, nipple discharge, breast pain, abnormal mammogram, abnormal US or breast enlargement Musc Musculoskeletal: No back problems, arthritis, rheumatoid arthritis, gout or joint pain Cardio Cardiovascular: Yes heart disease, atrial fibrillation and heart stent; no murmur, pacemaker, high blood pressure, heart attack, palpitations, shortness of breat with exertion or chest pain Psych Psychiatric: No depression, anxiety or hearing voices Resp Respiratory: Yes shortness of breath, No sleep apnea, No cough, Yes COPD, No asthma, No emphysema, No wheezing Gastro Gastrointestinal: No abdominal pain, No nausea or vomiting, No diarrhea, No constipation, No blood in stool, Yes acid reflux, No hemorrhoids, No ulcers, No gallbladder problem, No black,tarry stools Alvaro Hematologic: Yes blood thinners, No blood disorders, No bleeding, No anemia, No blood clots Neuro Neurologic: No system reviewed and no additional complaints, except as docu, No as per HPI, No abnormal walking, No abnormal hearing, No abnormal movements, No abnormal speech, No behavioral changes, No burning sensations, No confusion, No seizure-like activity, No unsteadiness, No dizziness, No localized weakness, No frequent falls, No headache(s), No lack of coordination, No loss of vision, No memory loss, No numbness, No other visual disturbances, No radiating pain, No restless legs, No sensory deficit, No fainting, No tingling, No tremor(s), No weakness, No other Exam Const General: cooperative, comfortable, no acute distress Neck Neck: supple Chest Breast Palpation: No nipple discharge Other: Normal palpation and inspection of the upper bilateral chest Cardio Heart Sounds: no murmurs GI Inspection: non-distended Palpation: soft, nontender Assessment & Plan Problems 1. Encounter for adjustment or management of vascular access device Z45.2 2. Small cell carcinoma of right lung C34.91 Plan - Katlyn Soriano MD I have discussed above with the patient- Port-a-Cath placement. Left possible right IJ Port-A-Cath. patient will hold aspirin Plavix Patient has been counseled as to the risks/benefits of the procedure. I have explained the risks of the surgery, including but not limited to: infection, bleeding, injury to any blood vessels/nerves, injury to lungs (such as pneumothorax or hemothorax and need for chest tube), not having any access, nonfunctioning of port due to thrombosis, infection of port, etc. the patient understands and agrees to proceed. I have answered all the patient's questions to the patient?s satisfaction and the patient has no further questions. Greater than 50% of direct patient contact was spent in counseling or coordination of care. I spent 25 minutes counseling the patient and coordinating care. Katlyn Soriano M.D. Pager: [phone] [facility] [address] [place] [address], [facility], [address] [place] [address] Office: [phone] Plan Detail Follow Up We will schedule port placement Coding Level of Care Code Off vis,est,level 4 Diagnoses Encounter for adjustment or management of vascular access device Z45.2 Small cell carcinoma of right lung C34.91 ??Laterality: right Time Spent (min) 25 11/11/18 4313 <Electronically signed by Katlyn Soriano MD> Date Tawanda Anthony MD
[2018-11-15] VITALS (9 sets, daily range): BP systolic 88–98; BP diastolic 60–70; PULSE 55–63; RESP 14–16; TEMP 36.1–36.5; O2SAT 92–95; BMI 29.1
--- NOTE | 2018-11-15 06:51 | PCM.HP.BLA ---
History and Physical Date of Admission: 11/15/18 Intake Vital Signs 11/11/18 Body Mass Index (BMI) 287.0 11/11/18 Height 5 ft 11 in 11/11/18 Weight: 208 lb 11/11/18 Body Mass Index (BMI) 29.0 11/11/18 Blood Pressure 107/71 11/11/18 Blood Pressure Location Rt brachial 11/11/18 Blood Pressure Position Sitting 11/11/18 Respiratory Rate 18 11/11/18 Pulse Rate 111 H 11/11/18 Pulse Source Monitor 11/11/18 Temperature 97.8 F 11/11/18 Temperature Source Oral 11/11/18 Pulse Ox 93 11/11/18 Oxygen Delivery Method room air Intake Visit Reasons: Port Placement Consult Chief Complaint: F/u for SCLC. Founder Ceo & President Required: No Is patient in pain?: No Allergies No Known Allergies Allergy (Verified 11/11/18 10:27) Medications Multivit-Min/FA/Lycopen/Lutein [Centrum Silver Tablet] 1 ea PO DAILY 10/14/16 [History Confirmed 11/11/18] Ranitidine HCl [Acid Ceramics Machine Operator] 150 mg PO BID 10/14/16 [History Confirmed 11/11/18] aspirin 81 mg tablet,delayed release 81 mg PO QDAY 12/19/17 [History Confirmed 11/11/18] ascorbic acid (vitamin C) 500 mg capsule 500 mg PO QDAY cap 12/20/17 [History Confirmed 11/11/18] albuterol sulfate HFA 90 mcg/actuation aerosol inhaler 1 - 2 puff INHALATION Q4H PRN PRN #1 device 02/21/18 [Rx Confirmed 11/11/18] cholecalciferol (vitamin D3) 5,000 unit capsule 5,000 unit PO DAILY 06/21/18 [History Confirmed 11/11/18] nitroglycerin 0.4 mg sublingual tablet 0.4 mg SUBLINGUAL PRN PRN #25 tab 06/21/18 [Rx Confirmed 11/11/18] simvastatin 20 mg tablet 20 mg PO QHS 90 Days #90 tab 06/21/18 [Rx Confirmed 11/11/18] clopidogrel 75 mg tablet 75 mg PO DAILY #90 tab 10/04/18 [Rx Confirmed 11/11/18] Metoprolol Tartrate [Lopressor (beta darius)] 50 mg PO BID 10/07/18 [History Confirmed 11/11/18] amiodarone 200 mg tablet 100 mg PO DAILY #90 tab 10/27/18 [Rx Confirmed 11/11/18] Megestrol Acetate [Megace Udc] 400 mg PO DAILY 30 Days #300 ml 11/10/18 [Rx Confirmed 11/11/18] [facility] Medical History Paroxysmal atrial fibrillation (Chronic) Atherosclerotic heart disease of [place] coronary artery without angina pectoris (Chronic) Dyspnea (Chronic) Fatigue (Chronic) Wheezing (Chronic) Long-term use of high-risk medication (Chronic) Primary small cell malignant neoplasm of lung, stage 3 (Chronic) Acute DVT (deep venous thrombosis) (Chronic) Nocturnal hypoxia (Acute) Chest pain (Acute) Radiation esophagitis (Acute) Bradycardia (Acute) HLD (hyperlipidemia) (Chronic) Small cell lung cancer (Chronic) Obesity (BMI 30-39.9) (Chronic) Smoking addiction (Chronic) COPD (chronic obstructive pulmonary disease) (Chronic) HTN (hypertension) (Chronic) GERD (gastroesophageal reflux disease) (Acute) History of DVT (deep vein thrombosis) (Acute) PND (post-nasal drip) (Acute) Acute cystitis (Inactive) Adjustment and management of vascular access device (Inactive) Chemotherapy induced nausea and vomiting (Inactive) DVT of upper extremity (deep vein thrombosis) (Inactive) Encephalopathy (Inactive) Lightheadedness (Inactive) Pancytopenia (Inactive) Sepsis (Inactive) Surgical History History of coronary artery stent placement (Chronic) H/O percutaneous transluminal coronary angioplasty (Resolved) Hx of appendectomy (Resolved) Family History Father Heart disease Mother Cancer Brother Diabetes Son Atrial fibrillation Social History Smoking Status: Former smoker how long ago did patient quit smokin years ago second hand exposure: No alcohol intake: never substance use type: does not use caffeine: Yes Type: tea Number of servings: 2 what type of physical activity do you participate in: none HPI HPI HPI: ALEXANDRA WALTER, is a 73 M who presents to the office today for HPI HPI Surgical H&P: Yes HPI: ALEXANDRA WALTER, is a 73 M who presents to the office today for port placement. Patient was diagnosed with small cell lung cancer on the right and was treated with chemotherapy and radiation in 2016. Patient did have a right arm port at that time which did get a DVT and was removed about 2 years ago. On follow-up patient was noted to have a new spiculated right lung nodule CT biopsy was recently done results pending. Patient is planning to start chemotherapy on 11/17/2018. ROS General General: Yes weight change; no fatigue, colon cancer, breast cancer or weakness HEENT HEENT: No difficulty swallowing, eye injury, eye surgery, swollen glands or hoarseness Endo Endocrine: Yes thyroid disease; no diabetes mellitus, thyroid cancer, Hair loss, heat intolerance or cold intolerance Skin Skin: No rash or changing moles Breast Breast: No left breast lump, right breast lump, nipple discharge, breast pain, abnormal mammogram, abnormal US or breast enlargement Musc Musculoskeletal: No back problems, arthritis, rheumatoid arthritis, gout or joint pain Cardio Cardiovascular: Yes heart disease, atrial fibrillation and heart stent; no murmur, pacemaker, high blood pressure, heart attack, palpitations, shortness of breat with exertion or chest pain Psych Psychiatric: No depression, anxiety or hearing voices Resp Respiratory: Yes shortness of breath, No sleep apnea, No cough, Yes COPD, No asthma, No emphysema, No wheezing Gastro Gastrointestinal: No abdominal pain, No nausea or vomiting, No diarrhea, No constipation, No blood in stool, Yes acid reflux, No hemorrhoids, No ulcers, No gallbladder problem, No black,tarry stools Alvaro Hematologic: Yes blood thinners, No blood disorders, No bleeding, No anemia, No blood clots Neuro Neurologic: No system reviewed and no additional complaints, except as docu, No as per HPI, No abnormal walking, No abnormal hearing, No abnormal movements, No abnormal speech, No behavioral changes, No burning sensations, No confusion, No seizure-like activity, No unsteadiness, No dizziness, No localized weakness, No frequent falls, No headache(s), No lack of coordination, No loss of vision, No memory loss, No numbness, No other visual disturbances, No radiating pain, No restless legs, No sensory deficit, No fainting, No tingling, No tremor(s), No weakness, No other Exam Const General: cooperative, comfortable, no acute distress Neck Neck: supple Chest Breast Palpation: No nipple discharge Other: Normal palpation and inspection of the upper bilateral chest Cardio Heart Sounds: no murmurs GI Inspection: non-distended Palpation: soft, nontender Assessment & Plan Problems 1. Encounter for adjustment or management of vascular access device Z45.2 2. Small cell carcinoma of right lung C34.91 Plan - Katlyn Soriano MD I have discussed above with the patient- Port-a-Cath placement. Left possible right IJ Port-A-Cath. patient will hold aspirin Plavix Patient has been counseled as to the risks/benefits of the procedure. I have explained the risks of the surgery, including but not limited to: infection, bleeding, injury to any blood vessels/nerves, injury to lungs (such as pneumothorax or hemothorax and need for chest tube), not having any access, nonfunctioning of port due to thrombosis, infection of port, etc. the patient understands and agrees to proceed. I have answered all the patient's questions to the patient?s satisfaction and the patient has no further questions. Greater than 50% of direct patient contact was spent in counseling or coordination of care. I spent 25 minutes counseling the patient and coordinating care. Katlyn Soriano M.D. Pager: [phone] [facility] [address] [place] [address], [facility], [address] [place] [address] Office: [phone] Plan Detail Follow Up We will schedule port placement Coding Level of Care Code Off vis,est,level 4 Diagnoses Encounter for adjustment or management of vascular access device Z45.2 Small cell carcinoma of right lung C34.91 ??Laterality: right Time Spent (min) 25 Update 5\14\19 6:52am : I have re-examined the patient. There are no clinical changes since date of exam.
--- NOTE | 2018-11-15 06:54 | HP.PCM_ITS ---
History and Physical Date of Admission: 11/15/18 Intake Vital Signs 11/11/18 Body Mass Index (BMI) 287.0 11/11/18 Height 5 ft 11 in 11/11/18 Weight: 208 lb 11/11/18 Body Mass Index (BMI) 29.0 11/11/18 Blood Pressure 107/71 11/11/18 Blood Pressure Location Rt brachial 11/11/18 Blood Pressure Position Sitting 11/11/18 Respiratory Rate 18 11/11/18 Pulse Rate 111 H 11/11/18 Pulse Source Monitor 11/11/18 Temperature 97.8 F 11/11/18 Temperature Source Oral 11/11/18 Pulse Ox 93 11/11/18 Oxygen Delivery Method room air Intake Visit Reasons: Port Placement Consult Chief Complaint: F/u for SCLC. 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 Is patient in pain?: No Allergies No Known Allergies Allergy (Verified 11/11/18 10:27) Medications Multivit-Min/FA/Lycopen/Lutein [Centrum Silver Tablet] 1 ea PO DAILY 10/14/16 [History Confirmed 11/11/18] Ranitidine HCl [Acid Adult Literacy Teacher] 150 mg PO BID 10/14/16 [History Confirmed 11/11/18] aspirin 81 mg tablet,delayed release 81 mg PO QDAY 12/19/17 [History Confirmed 11/11/18] ascorbic acid (vitamin C) 500 mg capsule 500 mg PO QDAY cap 12/20/17 [History Confirmed 11/11/18] albuterol sulfate HFA 90 mcg/actuation aerosol inhaler 1 - 2 puff INHALATION Q4H PRN PRN #1 device 02/21/18 [Rx Confirmed 11/11/18] cholecalciferol (vitamin D3) 5,000 unit capsule 5,000 unit PO DAILY 06/21/18 [History Confirmed 11/11/18] nitroglycerin 0.4 mg sublingual tablet 0.4 mg SUBLINGUAL PRN PRN #25 tab 06/21/18 [Rx Confirmed 11/11/18] simvastatin 20 mg tablet 20 mg PO QHS 90 Days #90 tab 06/21/18 [Rx Confirmed 11/11/18] clopidogrel 75 mg tablet 75 mg PO DAILY #90 tab 10/04/18 [Rx Confirmed 11/11/18] Metoprolol Tartrate [Lopressor (beta darius)] 50 mg PO BID 10/07/18 [History Confirmed 11/11/18] amiodarone 200 mg tablet 100 mg PO DAILY #90 tab 10/27/18 [Rx Confirmed 11/11/18] Megestrol Acetate [Megace Udc] 400 mg PO DAILY 30 Days #300 ml 11/10/18 [Rx Confirmed 11/11/18] [facility] Medical History Paroxysmal atrial fibrillation (Chronic) Atherosclerotic heart disease of [place] coronary artery without angina pectoris (Chronic) Dyspnea (Chronic) Fatigue (Chronic) Wheezing (Chronic) Long-term use of high-risk medication (Chronic) Primary small cell malignant neoplasm of lung, stage 3 (Chronic) Acute DVT (deep venous thrombosis) (Chronic) Nocturnal hypoxia (Acute) Chest pain (Acute) Radiation esophagitis (Acute) Bradycardia (Acute) HLD (hyperlipidemia) (Chronic) Small cell lung cancer (Chronic) Obesity (BMI 30-39.9) (Chronic) Smoking addiction (Chronic) COPD (chronic obstructive pulmonary disease) (Chronic) HTN (hypertension) (Chronic) GERD (gastroesophageal reflux disease) (Acute) History of DVT (deep vein thrombosis) (Acute) PND (post-nasal drip) (Acute) Acute cystitis (Inactive) Adjustment and management of vascular access device (Inactive) Chemotherapy induced nausea and vomiting (Inactive) DVT of upper extremity (deep vein thrombosis) (Inactive) Encephalopathy (Inactive) Lightheadedness (Inactive) Pancytopenia (Inactive) Sepsis (Inactive) Surgical History History of coronary artery stent placement (Chronic) H/O percutaneous transluminal coronary angioplasty (Resolved) Hx of appendectomy (Resolved) Family History Father Heart disease Mother Cancer Brother Diabetes Son Atrial fibrillation Social History Smoking Status: Former smoker how long ago did patient quit smokin years ago second hand exposure: No alcohol intake: never substance use type: does not use caffeine: Yes Type: tea Number of servings: 2 what type of physical activity do you participate in: none HPI HPI HPI: ALEXANDRA WALTER, is a 73 M who presents to the office today for HPI HPI Surgical H&P: Yes HPI: ALEXANDRA WALTER, is a 73 M who presents to the office today for port placement. Patient was diagnosed with small cell lung cancer on the right and was treated with chemotherapy and radiation in 2016. Patient did have a right arm port at that time which did get a DVT and was removed about 2 years ago. On follow-up patient was noted to have a new spiculated right lung nodule CT biopsy was recently done results pending. Patient is planning to start chemotherapy on 11/17/2018. ROS General General: Yes weight change; no fatigue, colon cancer, breast cancer or weakness HEENT HEENT: No difficulty swallowing, eye injury, eye surgery, swollen glands or hoarseness Endo Endocrine: Yes thyroid disease; no diabetes mellitus, thyroid cancer, Hair loss, heat intolerance or cold intolerance Skin Skin: No rash or changing moles Breast Breast: No left breast lump, right breast lump, nipple discharge, breast pain, abnormal mammogram, abnormal US or breast enlargement Musc Musculoskeletal: No back problems, arthritis, rheumatoid arthritis, gout or joint pain Cardio Cardiovascular: Yes heart disease, atrial fibrillation and heart stent; no murmur, pacemaker, high blood pressure, heart attack, palpitations, shortness of breat with exertion or chest pain Psych Psychiatric: No depression, anxiety or hearing voices Resp Respiratory: Yes shortness of breath, No sleep apnea, No cough, Yes COPD, No asthma, No emphysema, No wheezing Gastro Gastrointestinal: No abdominal pain, No nausea or vomiting, No diarrhea, No constipation, No blood in stool, Yes acid reflux, No hemorrhoids, No ulcers, No gallbladder problem, No black,tarry stools Alvaro Hematologic: Yes blood thinners, No blood disorders, No bleeding, No anemia, No blood clots Neuro Neurologic: No system reviewed and no additional complaints, except as docu, No as per HPI, No abnormal walking, No abnormal hearing, No abnormal movements, No abnormal speech, No behavioral changes, No burning sensations, No confusion, No seizure-like activity, No unsteadiness, No dizziness, No localized weakness, No frequent falls, No headache(s), No lack of coordination, No loss of vision, No memory loss, No numbness, No other visual disturbances, No radiating pain, No restless legs, No sensory deficit, No fainting, No tingling, No tremor(s), No weakness, No other Exam Const General: cooperative, comfortable, no acute distress Neck Neck: supple Chest Breast Palpation: No nipple discharge Other: Normal palpation and inspection of the upper bilateral chest Cardio Heart Sounds: no murmurs GI Inspection: non-distended Palpation: soft, nontender Assessment & Plan Problems 1. Encounter for adjustment or management of vascular access device Z45.2 2. Small cell carcinoma of right lung C34.91 Plan - Katlyn Soriano MD I have discussed above with the patient- Port-a-Cath placement. Left possible right IJ Port-A-Cath. patient will hold aspirin Plavix Patient has been counseled as to the risks/benefits of the procedure. I have explained the risks of the surgery, including but not limited to: infection, bleeding, injury to any blood vessels/nerves, injury to lungs (such as pneumothorax or hemothorax and need for chest tube), not having any access, nonfunctioning of port due to thrombosis, infection of port, etc. the patient understands and agrees to proceed. I have answered all the patient's questions to the patient?s satisfaction and the patient has no further questions. Greater than 50% of direct patient contact was spent in counseling or coordination of care. I spent 25 minutes counseling the patient and coordinating care. Katlyn Soriano M.D. Pager: [phone] [facility] [address] [place] [address], [facility], [address] [place] [address] Office: [phone] Plan Detail Follow Up We will schedule port placement Coding Level of Care Code Off vis,est,level 4 Diagnoses Encounter for adjustment or management of vascular access device Z45.2 Small cell carcinoma of right lung C34.91 ??Laterality: right Time Spent (min) 25 Update 5\14\19 6:52am : I have re-examined the patient. There are no clinical changes since date of exam.
[2018-11-15] MEDS: Cefazolin 2 GM in 0.9% Normal Saline 100 ML IV (08:50)
[2018-11-15] MEDS: Bupivacaine Mpf 0.5% 30 ML VIAL (09:30)
--- NOTE | 2018-11-15 09:43 | RAD_ITS ---
STUDY: X-RAY CHEST REASON FOR EXAM: Male, 73 years old. Port placement. TECHNIQUE: Single AP portable view of the chest. COMPARISON: Comparison is made with prior study dated November 03, 2018. FINDINGS: A right-sided frances catheter has been placed. The tip is in the right atrium. EKG electrodes are seen. Poor inspiratory effort. Increased markings at the lung bases suggest bibasilar atelectasis. There is no evidence of pneumothorax. Normal size heart. Normal mediastinum and tessa. Normal visualized pulmonary arteries. There is atherosclerotic tortuosity of the aortic arch and descending thoracic aorta. There are diffuse degenerative changes of the visualized thoracic spine. Normal visualized ribs, clavicles, and shoulders. There is no demonstrated abnormality of the visualized soft tissue structures of the upper abdomen. RAD/CXR for Line Placement IMPRESSION: Limited inspiration. Bibasilar atelectasis. The tip of the right portacatheter is in the right atrium. Electronically Signed: Miguel Chacon, at 10:15 EDT , Service support ,
--- NOTE | 2018-11-15 09:43 | OP.PCM_ITS ---
Report of Operation Date of Procedure: 11/15/18 Pre-Operative Diagnosis: z45.2, small cell lung cancer Post-Operative Diagnosis: Same Surgery/Procedure Performed:: Insertion of right IJ Port-A-Cath. Use of ultrasound. Use of fluoroscopy Type of Anesthesia:: MAC/Supplemental/Local Anesthesiologist: Cesar Evans Special Medications: Ancef 2 g IV x1 Specimen's removed: None Estimated Blood Loss (mL): < 5 cc Fluids Replaced: 800 cc Description of Procedure: After informed consent was given, the patient was brought to the operating room and placed in the supine position. Appropriate time out protocol was followed. He was then given IV conscious sedation for anesthesia. The patient's bi lateral upper chest and neck were then prepped with a surgical skin preparation and sterile surgical drapes were placed. After proper landmarks were ascertained, the skin at the upper right chest area was then infiltrated with 1:1 mixture of 1% lidocaine with epinephrine and 0.5% maricaine. A needle trocar was then inserted into the right internal jugular vein with ultrasound guidance-multiple vessels were viewed with u/s and the right IJ was chosen-- and there was good aspiration of venous blood. A wire was then threaded into the needle trocar and this was visualized under fluoroscopy to ensure that the wire was in the superior vena cava. Once this was done, then the needle trocar was removed. A small skin tamia was made with an 11 blade knife at the wire entrance site. The dilator with the introducer sheath attached was then placed over the wire into the right internal jugular vein via the Seldinger technique and this was visualized under fluoroscopy. The dilator and sheath were in proper position as visualized by fluoroscopy. A subcutaneous pocket was then created caudad to the catheter insertion site. A transverse skin incision was made after the skin and subcutaneous tissues were infiltrated with local anesthetic. Blunt dissection was then used to create a space large enough for placement of the subcutaneous port. The catheter was then tunneled into the subcutaneous pocket. The wire and dilator were then removed. The catheter was then threaded into the introducer sheath and was positioned with its tip at the junction of the superior vena cava and the right atrium as visualized under fluoroscopy. The excess catheter was transected. The catheter was then attached to the subcutaneous port using manufacturers guidelines. The catheter was flushed with a heparin saline mixture prior to placement. Hemostasis was carefully controlled with electrocautery. The port was sutured to the subcutaneous fascia using 3-0 PDS suture at two sites. The port was then placed in the subcutaneous pocket and the sutures were ligated. The incision were reapproximated with interrupted subdermal 3-0 vicryl sutures. The skin was reapproximated with 3-0 nylon suture in a interrupted fashion. Steristrips were used for reinforcement of the skin closure at IJ insertion site and a sterile opsite dressings were applied. The patient tolerated the procedure well. Implants Used: Bard PowerPort isp M.R.I. 6Fr Lot [id number] ref [id number] Grafts/Implants Used: [employer] PowerPort isp M.R.I. 6Fr Lot [id number] ref [id number] - Complications none
--- NOTE | 2018-11-15 09:47 | PCM.DC.POR ---
Discharge Diet: No Restrictions May shower in (days): 5 - Keep port site clean and dry for 5 days okay to take a lower shower and sponge at the top or wheezes Ziploc bag and tape off the port site okay to remove the neck OpSite in 1 day. Lifting Restrictions: No lifting greater than 15 pounds on the right arm x1 wk Call your doctor if your incision/area has: Continuous Slow Oozing, Sudden Increased Bleeding, Increased Pain/ Swelling, Increased Redness, Foul Smelling Discharge, Swelling at the incision site Call your doctor if you observe: Fever of 101 or Higher Allergies/Adverse Reactions: Allergies No Known Allergies Allergy (Verified 11/14/18 13:45) Medications to take at Discharge Multivit-Min/FA/Lycopen/Lutein [Centrum Silver Tablet] 1 ea PO DAILY 10/14/16 Ranitidine HCl [Acid Practice Physician] 150 mg PO BID 10/14/16 aspirin 81 mg tablet,delayed release 81 mg PO QDAY 12/19/17 ascorbic acid (vitamin C) 500 mg capsule 500 mg PO QDAY cap 12/20/17 albuterol sulfate HFA 90 mcg/actuation aerosol inhaler 1 - 2 puff INHALATION Q4H PRN PRN #1 device 02/21/18 cholecalciferol (vitamin D3) 5,000 unit capsule 5,000 unit PO DAILY 06/21/18 nitroglycerin 0.4 mg sublingual tablet 0.4 mg SUBLINGUAL PRN PRN #25 tab 06/21/18 simvastatin 20 mg tablet 20 mg PO QHS 90 Days #90 tab 06/21/18 clopidogrel 75 mg tablet 75 mg PO DAILY #90 tab 10/04/18 Metoprolol Tartrate [Lopressor (beta darius)] 50 mg PO BID 10/07/18 Amiodarone HCl [Cordarone] 100 mg PO BID 11/14/18 Amoxicillin [Amoxil] 500 mg PO Q12H 11/14/18 Guaifenesin [Mucinex] 600 mg PO BID 11/14/18 Ondansetron [Ondansetron Odt] 8 mg PO Q8H PRN PRN 10 Days #30 tab.rapdis 11/14/18 Oxycodone HCl/Acetaminophen [Percocet 5/325] 1 tablet PO Q6H PRN PRN 3 Days #5 tablet 11/15/18 The following prescriptions were given: Oxycodone HCl/Acetaminophen [Percocet 5/325] 1 tablet PO Q6H PRN PRN 3 Days #5 tablet PRN Reason: Pain Primary Care Physician: Rogelio Green DO [Primary Care Provider] - Test Results: Test results from this visit will be discussed in further detail at your follow-up appointment, if applicable. Please Follow Up With: Katlyn Soriano MD - After 5:00 on the weekends call with [phone] with any concerns When: Call the office for a follow-up in 10 days for suture removal with Ana Proposed Discharge Date: 11/15/18
== END 2018-11-15 11:26 | disposition home health service (06) ==
LOC: SDC 05:55 → AC 05:56
PROVIDERS: Family Provider Family Medicine; PCP Family Medicine; Referring Provider Surgery; Visit Provider Surgery
PROC: (CPT 36561; principal; 2018-11-15 07:15)
DX: Z45.2 Encounter for adjustment and management of vascular access device (principal); C34.91 Malignant neoplasm of unspecified part of right bronchus or lung; Z79.899 Other long term (current) drug therapy; Z79.82 Long term (current) use of aspirin; I48.0 Paroxysmal atrial fibrillation; Z86.718 Personal history of other venous thrombosis and embolism; I25.10 Atherosclerotic heart disease of native coronary artery without angina pectoris; E78.5 Hyperlipidemia, unspecified; J44.9 Chronic obstructive pulmonary disease, unspecified; I10 Essential (primary) hypertension; K21.9 Gastro-esophageal reflux disease without esophagitis; Z87.891 Personal history of nicotine dependence; Z92.21 Personal history of antineoplastic chemotherapy; Z92.3 Personal history of irradiation
CPT/HCPCS: 36561; 71045; 77001; J7120; J2405

== ENCOUNTER 2018-12-03 15:17 | Inpatient (IN) | payer OTHER, MEDICARE, SELFPAY ==
[2016-12-24 11:34] VITALS: BMI 28.1
[2018-11-24 09:42] VITALS: BMI 29.4
[2018-12-03] VITALS (9 sets, daily range): BP systolic 96–117; BP diastolic 53–79; PULSE 67–78; RESP 16–21; TEMP 36.4–38.3; O2SAT 90–98; BMI 28.5; BMI 28.6
--- NOTE | 2018-12-03 15:30 | EKG12_ITS ---
Test Reason : Blood Pressure : / mmHG Vent. Rate : 078 BPM Atrial Rate : 078 BPM P-R Int : 158 ms QRS Dur : 094 ms QT Int : 372 ms P-R-T Axes : 001 -20 155 degrees QTc Int : 424 ms Normal sinus rhythm Low voltage QRS T wave abnormality, consider anterolateral ischemia Abnormal ECG Confirmed by ELEAZAR RODRIGUEZ, NIRMAL ([id number]), assistant film editor DELORES JONES ([id number]) on 12/05/2018 11:44:43 AM Referred By: Elina Berrios Confirmed By:NIRMAL BUSH MD
--- NOTE | 2018-12-03 15:35 | RAD_ITS ---
STUDY: X-RAY CHEST REASON FOR EXAM: Male, 73 years old. Fever with weakness and confusion. Patient on chemotherapy for lung cancer. TECHNIQUE: Single frontal view of the chest. COMPARISON: November 15, 2018 FINDINGS: A right internal jugular catheter is stable. There is low volume inspiration with atelectasis at both bases. There is a patchy opacity in the left midlung zone compatible with early/developing pneumonia. There is no demonstrated pleural abnormality. There is cardiomegaly. Normal mediastinum and tessa. Normal visualized pulmonary arteries. There is atherosclerotic calcification of the aortic arch with tortuosity. Normal visualized thoracic spine. Normal visualized ribs, clavicles, and shoulders. There is no demonstrated abnormality of the visualized soft tissue structures of the upper abdomen. RAD/Chest 1 View (Portable) IMPRESSION: Cardiomegaly with low volume inspiration. Patchy opacity in the left midlung zone compatible with early/developing pneumonia. Electronically Signed: Ezio Rincon MD at 15:54 EDT , Service support ,
[2018-12-03 16:50] LABS: Lactic Acid 1.7 mmol/L (0.4-2.0)
--- NOTE | 2018-12-03 16:51 | ED.VISSUMM ---
- ER Visit Summary Date of Service: 12/03/18 Chief Complaint: Fever, generalized weakness History of Present Illness: The patient is a 73 M presenting with fever, generalized weakness. states that he has not been acting like himself today. He has been very tired and fatigued. He is currently on chemotherapy for non-small cell lung cancer. His last chemo was November 24. He has had a cough. Denies shortness of breath. Denies abdominal pain. Denies other complaints. Physical Examination: Vitals are stable. Temperature 101. Alert no acute distress. HEENT exam dry mucous membranes Neck is supple. No meningismus Lungs are diminished bilaterally. Heart is regular rate and rhythm. Abdomen is soft nontender nondistended. No guarding or rebound Extremities are unremarkable. Skin is warm and dry. No rash No focal neurologic deficit. Remainder of exam is unremarkable. Emergency Department Course and Treatment: Patient given IV fluids, Tylenol. Blood cultures were sent. Chest x-ray shows cardiomegaly with low volume inspiration. Patchy opacity in the left midlung zone compatible with early/developing pneumonia. CBC shows white count 2.1, hemoglobin 11.6, platelet 11. Chemistries unremarkable. Troponin is negative. Lactic acid is normal. Urinalysis is pending. EKG is sinus rate 78 with anterolateral T wave inversion. This is changed from previous. Patient denies current chest pain. He was given meropenem IV. His oncologist was paged. Discussed with the hospitalist for admission. Disposition: Admission Impression: Neutropenic fever, pneumonia, lung cancer This note was generated with MyActivityPal dictation software. It may contain incorrect words, spelling, and punctuation that were not noted in review of the chart prior to signing ED Disposition - Plan for ED Patient: Referrals: Rogelio Green DO [Primary Care Provider] -
[2018-12-03 16:54] LABS: Absolute Lymphocyte Count 0.71 X10^3/ul (0.83-4.51); Absolute Neutrophil Count 1.2 X10^3/uL (2.0-7.7); Hematocrit 34.8 % (40-54); Hemoglobin 11.6 g/dl (13.0-16.5); Lymphocyte # 0.71 X10^3/ul (4.0); Lymphocyte % 34.3 % (19-41); Mean Corp Hgb Conc 33.3 g/gl (32-36); Mean Platelet Vol. 12.7 fl (6.2-12.0); Monocyte# 0.12 X10^3/uL; Monocyte% 5.8 % (0-10); Neutrophil # 1.24 X10^3/uL (2.7-7.7); Neutrophil % 59.9 % (47-70); Platelet Count 11 K/mm3 (150-450); RBC Distribution Width CV 13.1 % (11.6-14.6); RBC Distribution Width SD 41.9 fl (35.1-43.9); White Blood Count 2.1 K/mm3 (4.4-11.0)
[2018-12-03 16:55] LABS: Anion Gap 8 (5-15); BUN 14 mg/dL (7-18); Calcium,Total 8.5 mg/dL (8.5-10.1); Chloride 103 mmol/L (98-107); Creatinine, Serum 1.17 mg/dL (0.70-1.30); EST Glomerular Filtration Rate 65 mL/min (>60); Est Glom Filt Rate - Afr Amer 79 mL/min (>60); Estimated Creatinine Clearance 60.78 ml/min; Glucose 108 mg/dL (74-106); Sodium Level 139 mmol/L (136-145)
[2018-12-03 16:57] LABS: Differential Indicated SCAN CRITERIA MET; POSITIVE COUNT YES; POSITIVE DIFFERENTIAL NO; POSITIVE MORPHOLOGY NO
[2018-12-03] MEDS: Acetaminophen 500 MG Tablet 1000 MG PO (16:59)
--- NOTE | 2018-12-03 17:01 | ED.RN ---
critical PLT count 11 received, Dr Urena notified. No new orders received.
[2018-12-03 17:38] LABS: Differential Comment SCANNED; Platelet Estimate MKD DEC (ADEQ)
[2018-12-03 17:50] LABS: Bacteria 0 SEEN /hpf (None Seen); Mucous, Urine 0 SEEN /hpf (<or=2+)
[2018-12-03 17:52] LABS: Color, Urine Yellow (Yellow); Glucose, Dipstick Normal (Normal); Ketone-Dipstick Negative (Negative); Leukocyte Esterase-Dipstick 25 /ul (Negative); Nitrite-Dipstick Negative (Negative); Occult Blood-Urine 25 /ul (Negative); Protein-Dipstick 30 mg/dl (Negative); Urine Bilirubin Dipstick Negative (Negative); Urine Clarity Sl. Cloudy (Clear); Urine Urobilinogen 1 mg/dl (Normal); Urine pH 6.5 (5.0 - 8.0)
--- NOTE | 2018-12-03 17:57 | PCM.HP.STD ---
History of Present Illness Date of Admission: 12/03/18 Chief Complaint: Fever, generalised weakness, confusion - 1 day The patient is a 73 year old M with PMHx of small cell lung cancer, status post chemotherapy and radiotherapy, history of DVT of the right upper extremity, status post radiation esophagitis, status post prophylactic cranial irradiation. Patient follows with Dr. Ayon in the outpatient. He has history of metabolic encephalopathy and was on Decadron and referred to [facility] for further neurological evaluation. He was recently in October 2018, found to have right lung nodule with hypermetabolic activities in the right upper lobe and mediastinal as well as hilar region. 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 He is currently on chemotherapy. Last had chemotherapy on 11/24/18. Vitals in ED showed 101F, HR 72, BP 117/64, RR 18, Sp02 93%. WBC 2.1, Hb 11.6, Plt 11. BMP is unremarkable. Blood cultures is pending. Chest x-ray shows cardiomegaly, low volume inspiration, patchy opacity in the left midlung zone compatible with early/developing pneumonia. Past Medical History Past Medical History (Chronic Problems): Chronic Problems (Last Reviewed 11/24/18 @ 09:42 by Cheri Vo) Paroxysmal atrial fibrillation (Chronic) Atherosclerotic heart disease of [place] coronary artery without angina pectoris (Chronic) PTCA/stent of the mid LAD, prox 1st diag, prox RCA 08/13/10; PTCA/BETO of the Ostial/Prox 1st diag 12/15/16 Dyspnea (Chronic) Fatigue (Chronic) Wheezing (Chronic) Long-term use of high-risk medication (Chronic) Primary small cell malignant neoplasm of lung, stage 3 (Chronic) Acute DVT (deep venous thrombosis) (Chronic) HLD (hyperlipidemia) (Chronic) Small cell lung cancer (Chronic) History of coronary artery stent placement (Chronic) PTCA/stent of the mid LAD, prox 1st diag, prox RCA 08/13/10; PTCA/BETO of the Ostial/Prox 1st diag 12/15/16 Obesity (BMI 30-39.9) (Chronic) Smoking addiction (Chronic) COPD (chronic obstructive pulmonary disease) (Chronic) HTN (hypertension) (Chronic) Medical History: Medical History (Last Reviewed 11/24/18 @ 09:42 by Cheri Vo) Paroxysmal atrial fibrillation (Chronic) I48.0 Atherosclerotic heart disease of [place] coronary artery without angina pectoris (Chronic) I25.10 PTCA/stent of the mid LAD, prox 1st diag, prox RCA 08/13/10; PTCA/BETO of the Ostial/Prox 1st diag 12/15/16 Dyspnea (Chronic) R06.00 Fatigue (Chronic) R53.83 Wheezing (Chronic) R06.2 Long-term use of high-risk medication (Chronic) Z79.899 Primary small cell malignant neoplasm of lung, stage 3 (Chronic) C34.90 Acute DVT (deep venous thrombosis) (Chronic) I82.409 Nocturnal hypoxia (Acute) G47.34 Chest pain (Acute) R07.9 Radiation esophagitis (Acute) K20.8 Bradycardia (Acute) R00.1 HLD (hyperlipidemia) (Chronic) E78.5 Small cell lung cancer (Chronic) C34.90 Obesity (BMI 30-39.9) (Chronic) E66.9 Smoking addiction (Chronic) F17.200 COPD (chronic obstructive pulmonary disease) (Chronic) J44.9 HTN (hypertension) (Chronic) I10 GERD (gastroesophageal reflux disease) K21.9 History of DVT (deep vein thrombosis) Z86.718 PND (post-nasal drip) R09.82 Acute cystitis (Inactive) N30.00 Adjustment and management of vascular access device (Inactive) Z45.2 Chemotherapy induced nausea and vomiting (Inactive) R11.2, T45.1X5A DVT of upper extremity (deep vein thrombosis) (Inactive) I82.629 Encephalopathy (Inactive) G93.40 Lightheadedness (Inactive) R42 Pancytopenia (Inactive) D61.818 Sepsis (Inactive) A41.9 Allergies No Known Allergies Allergy (Verified 11/24/18 09:42) Home Medications: Ambulatory Orders Medication Instructions Recorded Multivit-Min/FA/Lycopen/Lutein 1 ea PO DAILY 10/14/16 [Centrum Silver Tablet] Ranitidine HCl [Acid [employer]] 150 mg PO BID 10/14/16 aspirin 81 mg tablet,delayed 81 mg PO QDAY 12/19/17 release ascorbic acid (vitamin C) 500 mg 500 mg PO QDAY cap 12/20/17 capsule albuterol sulfate HFA 90 1 - 2 puff INHALATION Q4H PRN PRN 02/21/18 mcg/actuation aerosol inhaler #1 device cholecalciferol (vitamin D3) 5,000 5,000 unit PO DAILY 06/21/18 unit capsule nitroglycerin 0.4 mg sublingual 0.4 mg SUBLINGUAL PRN PRN #25 tab 06/21/18 tablet simvastatin 20 mg tablet 20 mg PO QHS 90 Days #90 tab 06/21/18 clopidogrel 75 mg tablet 75 mg PO DAILY #90 tab 10/04/18 Metoprolol Tartrate [Lopressor 50 mg PO BID 10/07/18 (beta darius)] Amiodarone HCl [Cordarone] 100 mg PO BID 11/14/18 Surgical History: Surgical History (Last Reviewed 11/24/18 @ 09:42 by Cheri Vo) History of coronary artery stent placement (Chronic) Z95.5 PTCA/stent of the mid LAD, prox 1st diag, prox RCA 08/13/10; PTCA/BETO of the Ostial/Prox 1st diag 12/15/16 H/O percutaneous transluminal coronary angioplasty Z98.61 PTCA/stent of the mid LAD, prox 1st diag, prox RCA 08/13/10; PTCA/BETO of the Ostial/Prox 1st diag 12/15/16 Hx of appendectomy Z90.49 Surgical History: appendectomy, - - Cardiac stents. Lives: Spouse/ Significant Other Smoking Status: Former smoker Tobacco Use: Non-smoker Alcohol: None Drugs: None - *Family History Maternal Family History: Family History (Last Reviewed 11/24/18 @ 09:42 by Cheri Vo) Father Heart disease Mother Cancer Brother Diabetes Son Atrial fibrillation History Items: Cancer - Lung cancer Paternal Family History: Family History (Last Reviewed 11/24/18 @ 09:42 by Cheri Vo) Father Heart disease Mother Cancer Brother Diabetes Son Atrial fibrillation History Items: Heart Disease Sibling Family History: Family History (Last Reviewed 11/24/18 @ 09:42 by Cheri Vo) Father Heart disease Mother Cancer Brother Diabetes Son Atrial fibrillation History Items: Diabetes Review of Systems Constitutional: Reports: Anorexia, Chills, Fever, Weakness, Weight Change, Fatigue Eyes: Denies: Blurred vision, Cataracts, Conjunctivae Inflammation, Double vision, Pain, Redness, Vision Change HEENT: Denies: Difficulty Hearing, Head Aches, Hearing Changes, Nasal bleeding, Sinus Congestion, Sinus Drainage Cardiovascular: Denies: Chest Pain, Claudication, Orthopnea, Palpitations, Paroxysmal Noc. Dyspnea Respiratory: Reports: Shortness of breath at rest, Shortness of breath upon exertion. Denies: Cough, Hemoptysis, Sputum production Gastrointestinal: Denies: Abdominal Pain, Hematemesis, Hematochezia, Nausea, Vomiting Genitourinary: Denies: Dysuria, Frequency, Incontinence Musculoskeletal: Denies: Joint Pain, Joint stiffness, Joint Tenderness Skin: Denies: Rash, Wounds Neurological: Denies: Numbness, Tingling, Focal weakness Psychiatric: Denies: Anxiety, Depression, Homicidal Ideations, Suicidal Ideations Hematologic/ Lymphatic: Denies: Easy Bruising, Easy Bleeding VTE Information - Inpt Only VTE Present on Admission: No VTE Pharm Prophylaxis ordered?: Yes - Physical Exam General: Alert, Oriented x3, Cooperative, No apparent distress, - - on 2L intranasal oxygen HEENT: Atraumatic, PERRLA, EOMI, Normocephalic Oral: Moist Mucosa Neck: Supple Lungs: Normal air movement, Diminished, Rales - at lung bases, - - s/p right mediport Cardiovascular: Regular rate, Regular Rhythm, Normal S1, Normal S2, No murmurs Abdomen: Bowel Sounds Present, Soft, Non Tender, Non-Distended, No Hepato-splenomegaly Extremities: Edema - Trace bilateral edema Skin: No rashes Musculoskeletal: No Tenderness to Palpation of Joints or Extremities Lymphatic: No Cervical, Supraclavicular, or Inguinal Adenopathy Neurological: Cranial nerves II-XII grossly intact, Neuro grossly intact Psych/Mental Status: Normal Affect, Appropriate Vital Signs Temp Pulse Resp BP Pulse Ox 100.4 F H 78 21 H 109/79 93 12/03/18 17:01 12/03/18 17:01 12/03/18 17:01 12/03/18 17:12/03/18 17:01 Oxygen Delivery Method Room Air Weight: 92.986 kg Body Mass Index (BMI) 28.5 Laboratory Tests Past 24 Hrs 12/03/18 12/03/18 12/03/18 16:10 16:10 16:10 WBC 2.1 L RBC 4.00 L Hgb 11.6 L Hct 34.8 L MCV 87.0 MCH 29.0 MCHC 33.3 RDW 13.1 RDW Differential 41.9 Plt Count 11 L* MPV 12.7 H Immature Gran % (Auto) 0.000 Neut % (Auto) 59.9 Lymph % (Auto) 34.3 [place] % (Auto) 5.8 Eos % (Auto) 0.0 Baso % (Auto) 0.0 Absolute Neuts (auto) 1.2 L Absolute Lymphs (auto) 0.71 L Total Counted Not Reportable Differential Comment SCANNED Diff Path Review May foll Platelet Estimate MKD DEC Sodium 139 Potassium 4.0 Chloride 103 Carbon Dioxide 28.0 Anion Gap 8 BUN 14 Creatinine 1.17 Estim Creat Clear Calc 60.78 Est GFR (MDRD) Af Amer 79 Est GFR (MDRD) Non-Af 65 BUN/Creatinine Ratio 12.0 Glucose 108 H Lactic Acid 1.7 Calcium 8.5 Troponin I < 0.015 Urine Color Urine Clarity Urine pH Ur Specific [place] Urine Protein Urine Glucose (UA) Urine Ketones Urine Occult Blood Urine Nitrite Urine Bilirubin Urine Urobilinogen Ur Leukocyte Esterase Urine RBC Urine WBC Ur Squamous Epith Cells Urine Bacteria Urine Mucus 12/03/18 17:35 WBC RBC Hgb Hct MCV MCH MCHC RDW RDW Differential Plt Count MPV Immature Gran % (Auto) Neut % (Auto) Lymph % (Auto) [place] % (Auto) Eos % (Auto) Baso % (Auto) Absolute Neuts (auto) Absolute Lymphs (auto) Total Counted Differential Comment Diff Path Review Platelet Estimate Sodium Potassium Chloride Carbon Dioxide Anion Gap BUN Creatinine Estim Creat Clear Calc Est GFR (MDRD) Af Amer Est GFR (MDRD) Non-Af BUN/Creatinine Ratio Glucose Lactic Acid Calcium Troponin I Urine Color Yellow Urine Clarity Sl. Cloudy Urine pH 6.5 Ur Specific [place] 1.010 Urine Protein 30 H Urine Glucose (UA) Normal Urine Ketones Negative Urine Occult Blood 25 H Urine Nitrite Negative Urine Bilirubin Negative Urine Urobilinogen 1 H Ur Leukocyte Esterase 25 H Urine RBC Pending Urine WBC Pending Ur Squamous Epith Cells Pending Urine Bacteria Pending Urine Mucus Pending Assessment/Plan All Active Problems (Last Reviewed 11/24/18 @ 09:42 by Cheri Vo) Right upper lobe pulmonary nodule (Acute) Chest pain at rest (Acute) Non-small cell carcinoma of left lung, stage 3 (Acute) Nocturnal hypoxia (Acute) Chest pain (Acute) Radiation esophagitis (Acute) Bradycardia (Acute) 73 year old M with PMHx of small cell lung cancer, status post chemotherapy and radiotherapy, history of DVT of the right upper extremity, status post radiation esophagitis, status post prophylactic cranial irradiation, paroxysmal atria fibrillation who comes in with complaints of feeling unwell, fever and chills. 1. Sepsis secondary to community-acquired pneumonia, status post chemotherapy on 11/24/18 Plan: Admit to MedSurg, neutropenic precautions, IV meropenem, vancomycin, gentle IV fluids, labs in a.m. 2. Pancytopenia with severe thrombocytopenia continue to chemotherapy, platelet count is 11,000, no signs of bleeding, ED discussed with oncology, recommends transfusion with platelets, oncology consult 3. Acute metabolic encephalopathy secondary to sepsis, history of cognitive impairment/encephalopathy status post chemotherapy, appears to be improving 4. Paroxysmal atrial fibrillation, on amiodarone, metoprolol 5. CAD status post stents, abnormal EKG on admission with anterolateral T wave inversions, initial troponin is negative, will trend troponins, continue on aspirin, Plavix, statins, beta-darius 6. DVT prophylaxis with SCDs on account of severe thrombocytopenia Code Visit Inpatient E&M: 25796 Init Hosp L3
--- NOTE | 2018-12-03 17:59 | NURSING ---
MED SURG PANCYTOPENIA PAINTSIL
[2018-12-03 18:03] LABS: Red Blood Cells-Urine 0-5 SEEN /hpf (0-5); Squamous Epithelial Cells - UA 0-5 SEEN /hpf (0-5); White Blood Cells 0-5 SEEN /hpf (0-5)
--- NOTE | 2018-12-03 20:04 | PCM.RX.CS ---
Consult Pharmacy has been consulted to manage selected antiobiotic: Vancomycin Type of Consult: New start Suspected Infection: Sepsis, Pneumonia Prior Doses of Antibiotics Received/Current Regimen: Medications Vancomycin HCl 1,500 mg/ (Sodium Chloride) 530 mls @ 250 mls/hr IV X1 ONE Stop: 12/03/18 22:07 Labs: Sodium 139 mmol/L (136-145) 12/03/18 16:10 Potassium 4.0 mmol/L (3.5-5.1) 12/03/18 16:10 Chloride 103 mmol/L (98-107) 12/03/18 16:10 Carbon Dioxide 28.0 mmol/L (21.0-32.0) 12/03/18 16:10 Anion Gap 8 (5-15) 12/03/18 16:10 BUN 14 mg/dL (7-18) 12/03/18 16:10 Creatinine 1.17 mg/dL (0.70-1.30) 12/03/18 16:10 Est GFR (MDRD) Af Amer 79 mL/min (>60) 12/03/18 16:10 Est GFR (MDRD) Non-Af 65 mL/min (>60) 12/03/18 16:10 BUN/Creatinine Ratio 12.0 RATIO (10-20) 12/03/18 16:10 Glucose 108 mg/dL (74-106) H 12/03/18 16:10 Weight used for dosin.9 kg Estimated Creatinine Clearance: 61 Goal Trough: 15-20 mcg/mL Pharmacy Plan for Drug Dosing: Initial dose of vancomycin IV 1500mg to be given. Will follow with 1000mg q12h and will draw trough level before 4th dose. Pharmacy Service will continue to monitor and adjust dosing as required. Follow-Up Labs: Trough Vancomycin Labs to be done on [date and time ordered]: 12/05/18 @0900
[2018-12-03] MEDS: Famotidine 20 MG Tablet PO (22:51)
[2018-12-03] MEDS: 0.9% Normal Saline 1,000 ML 100 ML IV (22:51)
[2018-12-03] MEDS: Atorvastatin Calcium 10 MG Tablet PO (22:51)
[2018-12-04] VITALS (17 sets, daily range): BP systolic 90–102; BP diastolic 55–65; PULSE 66–82; RESP 18; TEMP 36.8–37.5; O2SAT 92–94
--- NOTE | 2018-12-04 05:19 | NURSING ---
Vitals charted at 0416 should be timed for 0516.
[2018-12-04] MEDS: 0.9% NaCl Peripheral Flush Adult/Peds IV ×6 (06:26→17:11)
[2018-12-04] MEDS: Multivitamins,Ther W-Minerals Tablet 1 TABLET PO (08:37)
[2018-12-04] MEDS: Ascorbic Acid 500 MG Tablet PO (08:38)
[2018-12-04] MEDS: Vancomycin IV 1,000 MG/200 ML BAG 200 MG IV ×2 (10:16→21:18)
[2018-12-04] MEDS: Amiodarone 200 MG Tablet 100 MG PO (12:09)
[2018-12-04 12:46] LABS: Absolute Lymphocyte Count 0.68 X10^3/ul (0.83-4.51); Absolute Neutrophil Count 0.7 X10^3/uL (2.0-7.7); Basophil# 0.01 X10^3/uL; Basophil% 0.7 % (0-1); Eosinophil# 0.01 X10^3/uL; Eosinophils% 0.7 % (0-5); Hematocrit 23.2 % (40-54); Hemoglobin 7.4 g/dl (13.0-16.5); Lymphocyte # 0.68 X10^3/ul (4.0); Lymphocyte % 44.4 % (19-41); Mean Corp Hgb Conc 31.9 g/gl (32-36); Mean Corpuscular Hgb 28.5 pg (27.0-32.0); Mean Corpuscular Volume 89.2 fL (80-94); Mean Platelet Vol. 9.5 fl (6.2-12.0); Monocyte# 0.13 X10^3/uL; Monocyte% 8.5 % (0-10); Neutrophil # 0.69 X10^3/uL (2.7-7.7); Platelet Count 47 K/mm3 (150-450); RBC Distribution Width CV 12.8 % (11.6-14.6); RBC Distribution Width SD 39.8 fl (35.1-43.9); White Blood Count 1.5 K/mm3 (4.4-11.0)
[2018-12-04 12:51] LABS: Differential Indicated SCAN CRITERIA MET; POSITIVE COUNT YES; POSITIVE DIFFERENTIAL YES; POSITIVE MORPHOLOGY YES
[2018-12-04 13:07] LABS: Differential Comment SCANNED
--- NOTE | 2018-12-04 14:03 | PCM.PN.HOSP ---
Patient Problems: Active and Suspected Problems (Last Reviewed 11/24/18 @ 09:42 by Cheri Vo) Neutropenic fever (Acute) Pancytopenia (Acute) Gram-negative pneumonia (Acute) Subjective: Feels well. Still coughing up some phlegm. Phlegm is clear. Vitals/I&O's: Vital Signs Temp Pulse Resp BP Pulse Ox 36.8 C 71 18 100/57 L 93 12/04/18 11:50 12/04/18 11:50 12/04/18 11:50 12/04/18 11:50 12/04/18 11:50 Oxygen Flow Rate (L/min) 2 Oxygen Delivery Method Room Air Weight: 96 kg Body Mass Index (BMI) 28.5 Intake and Output for Last 24 Hours 12/02/18 12/03/18 12/04/18 23:59 23:59 23:59 Intake Total 836 / 836 1231 / 1231 Output Total 400 / 400 Balance 836 / 836 831 / 831 General: Alert, No apparent distress HEENT: Atraumatic, Normocephalic Oral: Moist Mucosa, No Gingival or Mucosal Lesions/ Ulcerations Neck: No Nodes, Thyroid Normal Size and Texture Lungs: Diminished, - - coarse breath sounds. Cardiovascular: Regular rate, Regular Rhythm, Normal S1, Normal S2, No murmurs Abdomen: Bowel Sounds Present, Soft, Non Tender, Non-Distended, No Hepato-splenomegaly Extremities: No edema, No Calf Tenderness Skin: No rashes, No breakdown Musculoskeletal: No Tenderness to Palpation of Joints or Extremities, No Muscle Wasting Neurological: Deep Tendon Reflexes 2+/4 and Symmetrical, - - no clonus. Psych/Mental Status: Normal Affect, Appropriate Microbiology Past 72 Hours 12/03/18 19:35 Urine, Clean Catch Streptococcus pneumoniae Antigen (M - Final 12/03/18 19:35 Urine, Clean Catch Legionella Antigen - Final Laboratory Results 12/03/18 16:10: WBC 2.1 L, RBC 4.00 L, Hgb 11.6 L, Hct 34.8 L, MCV 87.0, MCH 29.0, MCHC 33.3, RDW 13.1, RDW Differential 41.9, Plt Count 11 L*, MPV 12.7 H, Immature Gran % (Auto) 0.000, Neut % (Auto) 59.9, Lymph % (Auto) 34.3, [place] % (Auto) 5.8, Eos % (Auto) 0.0, Baso % (Auto) 0.0, Absolute Neuts (auto) 1.2 L, Absolute Lymphs (auto) 0.71 L, Total Counted Not Reportable, Differential Comment SCANNED, Diff Path Review November, Platelet Estimate MKD 12/03/18 16:10: Sodium 139, Potassium 4.0, Chloride 103, Carbon Dioxide 28.0, Anion Gap 8, BUN 14, Creatinine 1.17, Estim Creat Clear Calc 60.78, Est GFR (MDRD) Af Amer 79, Est GFR (MDRD) Non-Af 65, BUN/Creatinine Ratio 12.0, Glucose 108 H, Calcium 8.5, Troponin I < 0.015 12/03/18 16:10: Lactic Acid 1.7 12/03/18 17:35: Urine Color Yellow, Urine Clarity Sl. Cloudy, Urine pH 6.5, Ur Specific [place] 1.010, Urine Protein 30 H, Urine Glucose (UA) Normal, Urine Ketones Negative, Urine Occult Blood 25 H, Urine Nitrite Negative, Urine Bilirubin Negative, Urine Urobilinogen 1 H, Ur Leukocyte Esterase 25 H, Urine RBC 0-5 SEEN, Urine WBC 0-5 SEEN, Ur Squamous Epith Cells 0-5 SEEN, Urine Bacteria 0 SEEN, Urine Mucus 0 SEEN 12/03/18 20:10: Blood Type A POSITIVE 12/03/18 20:10: Troponin I < 0.015 12/03/18 22:40: Troponin I < 0.015 12/04/18 12:25: WBC 1.5 L*, RBC 2.60 L, Hgb 7.4 L, Hct 23.2 L, MCV 89.2, MCH 28.5, MCHC 31.9 L, RDW 12.8, RDW Differential 39.8, Plt Count 47 L*, MPV 9.5, Immature Gran % (Auto) 0.700, Neut % (Auto) 45.0 L, Lymph % (Auto) 44.4 H, [place] % (Auto) 8.5, Eos % (Auto) 0.7, Baso % (Auto) 0.7, Absolute Neuts (auto) 0.7 L, Absolute Lymphs (auto) 0.68 L, Total Counted Not Reportable, Differential Comment SCANNED, Diff Path Review May foll Current Medications Acetaminophen (Tylenol) 650 mg PO Q6H PRN PRN PRN Reason: Mild Pain (1-3)/Temp > 100.7 F Amiodarone HCl (Cordarone) 100 mg PO DAILY [facility] Last Admin: 12/04/18 12:09 Dose: 100 mg Ascorbic Acid (Vitamin C) 500 mg PO DAILY [facility] Last Admin: 12/04/18 08:38 Dose: 500 mg Atorvastatin Calcium (Lipitor) 10 mg PO QHS [facility] Last Admin: 12/03/18 22:51 Dose: 10 mg Cholecalciferol (Vitamin D) 5,000 unit PO DAILY [facility] Last Admin: 12/04/18 08:37 Dose: 5,000 unit Meropenem 1 gm/ Sodium (Chloride) 120 mls @ 33 mls/hr IV Q8 [facility] Last Admin: 12/04/18 06:26 Dose: 33 mls/hr Sodium Chloride () 1,000 mls @ 100 mls/hr IV .Q10H [facility] Stop: 12/04/18 18:59 Last Admin: 12/03/18 22:51 Dose: 100 mls/hr Vancomycin IV Pharmacy to Dose (1 ea/ Sodium Chloride) 500 mls @ 250 mls/hr IV PRN PRN; Protocol PRN Reason: Rx to Dose Vancomycin HCl (Vancomycin) 1,000 mg in 200 mls @ 200 mls/hr IV Q12H [facility] Last Admin: 12/04/18 10:16 Dose: 200 mls/hr Metoprolol Tartrate (Lopressor (Beta Sukhwinder)) 50 mg PO BID [facility] Last Admin: 12/04/18 11:30 Dose: Not Given Multivitamins/Minerals ([facility]ivitamin With Minerals) [facility] Admin: 12/04/18 08:37 Dose: 1 tablet Nitroglycerin (Nitrostat) 0.4 mg SUBLINGUAL Q5M PRN PRN Reason: CARDIAC/CHEST PAIN Nutritional Formula (Lactose Free) (Ensure Enlive) 120 ml PO 4X/DAY [facility] Last Admin: 12/04/18 08:38 Dose: 120 ml Ondansetron HCl (Zofran) 4 mg IV Q8H PRN PRN PRN Reason: NAUSEA/VOMITING Sodium Chloride () 5 - 15 ml IV UD PRN PRN Reason: SALINE FLUSH Last Admin: 12/04/18 12:34 Dose: 10 ml Medical Necessity - Tobacco Use Smoking Status: Former smoker Tobacco Use: Non-smoker Assessment/Plan All Active Problems (Last Reviewed 11/24/18 @ 09:42 by Cheri Vo) Chest pain at rest (Acute) Neutropenic fever (Acute) Pancytopenia (Acute) Gram-negative pneumonia (Acute) Bradycardia (Resolved) Chest pain (Resolved) 1. Neutropenic fever likely due to ROBERT infiltrate on Fernandez + Vanc follow up cultures deescalate abx based on cultures 2. Presumed gram negative pneumonia suspected given his immunosupression on Fernandez + Vanc check urinary Ag from strep and legionella check SCx pulmonary toilet 3. pancytopenia 2/2 chemotherapy: WBCs worse. ANC 700 Hg worse. 11.6 to 7.6. Platelets improved after transfusion 11 to 47k monitor no additional transfusion at this time T&C PRBCs and hold. If drops below 7, then transfuse Oncology on consult. 4. Lung ca NSCLC IIIA 5. VTE proph: SCDs. chemical prophylaxis contraindicated given pancytopenia. Code Visit Inpatient E&M: 10278 Subs Hosp L3
--- NOTE | 2018-12-04 14:08 | PN_ITS ---
Patient Problems: Active and Suspected Problems (Last Reviewed 11/24/18 @ 09:42 by Cheri Vo) Neutropenic fever (Acute) Pancytopenia (Acute) Gram-negative pneumonia (Acute) Subjective: Feels well. Still coughing up some phlegm. Phlegm is clear. Vitals/I&O's: Vital Signs Temp Pulse Resp BP Pulse Ox 36.8 C 71 18 100/57 L 93 12/04/18 11:50 12/04/18 11:50 12/04/18 11:50 12/04/18 11:50 12/04/18 11:50 Oxygen Flow Rate (L/min) 2 Oxygen Delivery Method Room Air Weight: 96 kg Body Mass Index (BMI) 28.5 Intake and Output for Last 24 Hours 12/02/18 12/03/18 12/04/18 23:59 23:59 23:59 Intake Total 836 / 836 1231 / 1231 Output Total 400 / 400 Balance 836 / 836 831 / 831 General: Alert, No apparent distress HEENT: Atraumatic, Normocephalic Oral: Moist Mucosa, No Gingival or Mucosal Lesions/ Ulcerations Neck: No Nodes, Thyroid Normal Size and Texture Lungs: Diminished, - - coarse breath sounds. Cardiovascular: Regular rate, Regular Rhythm, Normal S1, Normal S2, No murmurs Abdomen: Bowel Sounds Present, Soft, Non Tender, Non-Distended, No Hepato- splenomegaly Extremities: No edema, No Calf Tenderness Skin: No rashes, No breakdown Musculoskeletal: No Tenderness to Palpation of Joints or Extremities, No Muscle Wasting Neurological: Deep Tendon Reflexes 2+/4 and Symmetrical, - - no clonus. Psych/Mental Status: Normal Affect, Appropriate Microbiology Past 72 Hours 12/03/18 19:35 Urine, Clean Catch Streptococcus pneumoniae Antigen (M - Final 12/03/18 19:35 Urine, Clean Catch Legionella Antigen - Final Laboratory Results 12/03/18 16:10: WBC 2.1 L, RBC 4.00 L, Hgb 11.6 L, Hct 34.8 L, MCV 87.0, MCH 2 9.0, MCHC 33.3, RDW 13.1, RDW Differential 41.9, Plt Count 11 L*, MPV 12.7 H, Immature Gran % (Auto) 0.000, Neut % (Auto) 59.9, Lymph % (Auto) 34.3, [place] % (Auto) 5.8, Eos % (Auto) 0.0, Baso % (Auto) 0.0, Absolute Neuts (auto) 1.2 L, Absolute Lymphs (auto) 0.71 L, Total Counted Not Reportable, Differential Comment SCANNED, Diff Path Review November, Platelet Estimate MKD 12/03/18 16:10: Sodium 139, Potassium 4.0, Chloride 103, Carbon Dioxide 28.0, Anion Gap 8, BUN 14, Creatinine 1.17, Estim Creat Clear Calc 60.78, Est GFR (MDRD) Af Amer 79, Est GFR (MDRD) Non-Af 65, BUN/Creatinine Ratio 12.0, Glucose 108 H, Calcium 8.5, Troponin I < 0.015 12/03/18 16:10: Lactic Acid 1.7 12/03/18 17:35: Urine Color Yellow, Urine Clarity Sl. Cloudy, Urine pH 6.5, Ur Specific [place] 1.010, Urine Protein 30 H, Urine Glucose (UA) Normal, Urine Ketones Negative, Urine Occult Blood 25 H, Urine Nitrite Negative, Urine Bilirubin Negative, Urine Urobilinogen 1 H, Ur Leukocyte Esterase 25 H, Urine RBC 0-5 SEEN, Urine WBC 0-5 SEEN, Ur Squamous Epith Cells 0-5 SEEN, Urine Bacteria 0 SEEN, Urine Mucus 0 SEEN 12/03/18 20:10: Blood Type A POSITIVE 12/03/18 20:10: Troponin I < 0.015 12/03/18 22:40: Troponin I < 0.015 12/04/18 12:25: WBC 1.5 L*, RBC 2.60 L, Hgb 7.4 L, Hct 23.2 L, MCV 89.2, MCH 28.5, MCHC 31.9 L, RDW 12.8, RDW Differential 39.8, Plt Count 47 L*, MPV 9.5, Immature Gran % (Auto) 0.700, Neut % (Auto) 45.0 L, Lymph % (Auto) 44.4 H, [place] % (Auto) 8.5, Eos % (Auto) 0.7, Baso % (Auto) 0.7, Absolute Neuts (auto) 0.7 L, Absolute Lymphs (auto) 0.68 L, Total Counted Not Reportable, Differential Comment SCANNED, Diff Path Review May foll Current Medications Acetaminophen (Tylenol) 650 mg PO Q6H PRN PRN PRN Reason: Mild Pain (1-3)/Temp > 100.7 F Amiodarone HCl (Cordarone) 100 mg PO DAILY [facility] Last Admin: 12/04/18 12:09 Dose: 100 mg Ascorbic Acid (Vitamin C) 500 mg PO DAILY [facility] Last Admin: 12/04/18 08:38 Dose: 500 mg Atorvastatin Calcium (Lipitor) 10 mg PO QHS [facility] Last Admin: 12/03/18 22:51 Dose: 10 mg Cholecalciferol (Vitamin D) 5,000 unit PO DAILY [facility] Last Admin: 12/04/18 08:37 Dose: 5,000 unit Meropenem 1 gm/ Sodium (Chloride) 120 mls @ 33 mls/hr IV Q8 [facility] Last Admin: 12/04/18 06:26 Dose: 33 mls/hr Sodium Chloride () 1,000 mls @ 100 mls/hr IV .Q10H [facility] Stop: 12/04/18 18:59 Last Admin: 12/03/18 22:51 Dose: 100 mls/hr Vancomycin IV Pharmacy to Dose (1 ea/ Sodium Chloride) 500 mls @ 250 mls/hr IV PRN PRN; Protocol PRN Reason: Rx to Dose Vancomycin HCl (Vancomycin) 1,000 mg in 200 mls @ 200 mls/hr IV Q12H [facility] Last Admin: 12/04/18 10:16 Dose: 200 mls/hr Metoprolol Tartrate (Lopressor (Beta Sukhwinder)) 50 mg PO BID [facility] Last Admin: 12/04/18 11:30 Dose: Not Given Multivitamins/Minerals ([facility] Min[facility]) [facility] Last Admin: 12/04/18 08:37 Dose: 1 tablet Nitroglycerin (Nitrostat) 0.4 mg SUBLINGUAL Q5M PRN PRN Reason: CARDIAC/CHEST PAIN Nutritional Formula (Lactose Free) (Ensure Enlive) 120 ml PO 4X/DAY [facility] Last Admin: 12/04/18 08:38 Dose: 120 ml Ondansetron HCl (Zofran) 4 mg IV Q8H PRN PRN PRN Reason: NAUSEA/VOMITING Sodium Chloride () 5 - 15 ml IV UD PRN PRN Reason: SALINE FLUSH Last Admin: 12/04/18 12:34 Dose: 10 ml Medical Necessity - Tobacco Use Smoking Status: Former smoker Tobacco Use: Non-smoker Assessment/Plan All Active Problems (Last Reviewed 11/24/18 @ 09:42 by Cheri Vo) Chest pain at rest (Acute) Neutropenic fever (Acute) Pancytopenia (Acute) Gram-negative pneumonia (Acute) Bradycardia (Resolved) Chest pain (Resolved) 1. Neutropenic fever * likely due to ROBERT infiltrate * on Fernandez + Vanc * follow up cultures * deescalate abx based on cultures 2. Presumed gram negative pneumonia * suspected given his immunosupression * on Fernandez + Vanc * check urinary Ag from strep and legionella * check SCx * pulmonary toilet 3. pancytopenia * 2/2 chemotherapy: * WBCs worse. ANC 700 * Hg worse. 11.6 to 7.6. * Platelets improved after transfusion 11 to 47k * monitor * no additional transfusion at this time * T&C PRBCs and hold. If drops below 7, then transfuse * Oncology on consult. 4. Lung ca * NSCLC IIIA 5. VTE proph: SCDs. chemical prophylaxis contraindicated given pancytopenia. Code Visit Inpatient E&M: 23495 Subs Hosp L3
--- NOTE | 2018-12-04 14:39 | ONC.CONS.INP ---
Subjective Date of Service:: 12/04/18 Chief Complaint: Pancytopenia, NSCLC on treatment History of Present Illness: Mr. Roberth Anders is a pleasant 73 y.o.man with a PMH significant for COPD, hypertension, hyperlipidemia who was diagnosed with small cell lung cancer, limited disease (T2, N2, M0) on 03/25/2016. He was treated with combined chemotherapy and radiation therapy. He received 4 cycles of cisplatin and etoposide from 04/21/2016 through 07/01/2016. Therapy was complicated by pancytopenia, DVT of the right upper extremity associated with the port, and radiation esophagitis. He had a partial response and was referred for prophylactic cranial irradiation and had [address] chest on 10/03/2018 showed increasing R lung nodule. PET/CT on 10/24/2018 showed hypermetabolic activities in R upper lobe and mediastinum/R hilar area. CT guided bx of right lung on 11/03/2018 showed non small cell carcinoma favoring squamous histology. He began Carboplatin and Gemzar on 11/17/2018, day 8 Gemzar administered on 11/24/18 attenuated by 25% d/t thrombocytopenia. The patient presented to [facility] ED 12/03/18 with c/o fever (102-highest) and increased frequency of productive cough. CXR showed a patchy opacity in the left midlung suggestive of early/developing pneumonia. CBC showed Hgb 11.6, ANC 1.2 and platelets 11,000. Lactic acid was normal. Began meropenem and admitted for management of pneumonia. Received 5 pk platelets last evening. Upon entering the room, patient is lying upright in bed talking with spouse. States he is feeling better citing an improvement of malaise and less frequent cough. Specifically denies headaches, chills, sweats, CP, palpitations, abd pain, N/V, numbness/tingling and swelling/pain of his extremities. Has not required any prn antiemetics at home. Was constipated last week, now resolved. LBM 12/04/18. Bruises easily but denies any episodes of overt bleeding. Describes appetite as good, PO fluid intake as adequate. Voices intent to ambulate in the [place] after our encounter. Past Medical History: Chronic Problems (Last Updated 12/04/18 @ 14:08 by Cesar Cash DO) Right upper lobe pulmonary nodule (Chronic) Non-small cell carcinoma of left lung, stage 3 (Chronic) Paroxysmal atrial fibrillation (Chronic) Atherosclerotic heart disease of [place] coronary artery without angina pectoris (Chronic) PTCA/stent of the mid LAD, prox 1st diag, prox RCA 08/13/10; PTCA/BETO of the Ostial/Prox 1st diag 12/15/16 Dyspnea (Chronic) Fatigue (Chronic) Wheezing (Chronic) Long-term use of high-risk medication (Chronic) Primary small cell malignant neoplasm of lung, stage 3 (Chronic) Acute DVT (deep venous thrombosis) (Chronic) Nocturnal hypoxia (Chronic) Radiation esophagitis (Chronic) HLD (hyperlipidemia) (Chronic) History of coronary artery stent placement (Chronic) PTCA/stent of the mid LAD, prox 1st diag, prox RCA 08/13/10; PTCA/BETO of the Ostial/Prox 1st diag 12/15/16 Obesity (BMI 30-39.9) (Chronic) Smoking addiction (Chronic) COPD (chronic obstructive pulmonary disease) (Chronic) HTN (hypertension) (Chronic) Past Medical/Surgical History: Past Medical History - Most Recent Inpatient Visit Past Medical History Start: 12/03/18 19:07 Text: Status: Complete Freq: ONCE Protocol: Document 12/03/18 20:02 CDS (Rec: 12/03/18 20:04 CDS [id number]) BMI Required to complete PMH What is Patient's BMI 28.6 Past Medical History Unable History Recalled No Query Text:Pt Unable/Family Not Present Neurologic Medical History Hx Stroke/TIA No Hx Dementia/Alzheimer's No Hx Parkinson's Disease No Hx Seizures No Hx Multiple Sclerosis No Hx Migraines No Cardiac Medical History VTE Present on Admission No Hx of Deep Vein Thrombosis/VTE/PE Yes: clot near chemo port in Right shoulder Hx Hypertension Yes: controlled with med Hx Chest Pain/Angina Yes: only to cough with recent cold Hx Heart Attack No Hx Cardiac Surgery/Stents/Etc. Yes: x5 stents Hx Heart Failure No Hx Pacemaker/AICD No Hx Irregular Heartbeat and/or Afib Yes: afib/follows with whg/ last visit 06/2018 Hx Anticoagulant Therapy Yes: aspirin, plavix Query Text:(Coumadin, Aspirin, Plavix, Xarelto, etc.) Hx Pain in Legs when Walking/Leg Cramps No Respiratory Medical History Hx COPD Yes: hx lung cancer Hx Emphysema No Hx Smoking Yes: quit 3 yrs ago/ 2ppds 51 yrs Smoking Status Former smoker Tobacco Use Non-smoker Hx Smoking Cessation Counseling No Hx Smoking Exposure No Hx Tobacco Use in last 12 months No Hx of Pipe Smoking No Hx Sleep Apnea No CPAP No Do you snore loudly (louder than talking No or can be heard through closed doors)? Do you often feel tired/ fatigued/ Yes sleepy during daytime? Has anyone observed you stop breathing No during sleep? STOP Results Positive GI Medical History Hx Ulcer No Hx Hepatitis No Hx Cirrhosis No Hx GI Bleed No Hx Unplanned Weight Loss No Genitourinary Medical History Indwelling Catheter in Place on Arrival/ No Admission Hx Renal Disease No Hx Dialysis No Musculoskeletal History Hx Arthritis No Hx Rheumatoid Arthritis No Endocrine Medical History Hx Diabetes No Hx Thyroid Disease No: abnormal lab at this time Hematologic Medical History Hx of Blood Transfusion Yes Hx of Transfusion in last 3 Months No Ever experience any problems with No transfusion(s)? Hx of Preganancy in last 3 Months N/A Nurse Filling Out Transfusion & CSNYDER Questions: Date: 12/03/18 Time: 20:03 Psycho/Social Medical History Hx Depression No Hx Anxiety No Hx Behavior Disorder No Hx Alcohol Use No Hx Substance Use No Other Medical History Hx Blood Disorders Yes: thrombocytopenia in the past Hx Anemia Yes: in the past Hx Cancer Yes: small cell lung cancer/ with radiation 2017/now with squamous cell Hx Drug Resistant Organism No Wound/Pressure Injury Present on Arrival No /Admission Query Text:If yes, chart assessment in Shift/Clinical Findings Central Line/PICC/VAD Present on Arrival Yes /Admission Risk for Readmission Number of Risk Factors 5 At Risk for Readmission Patient is At Risk For Readmission Patient is eligible for Call Back Y Past Medical History (Last Updated 12/04/18 @ 14:08 by Cesar Cash DO) Paroxysmal atrial fibrillation (Chronic) Atherosclerotic heart disease of [place] coronary artery without angina pectoris (Chronic) Dyspnea (Chronic) Fatigue (Chronic) Wheezing (Chronic) Long-term use of high-risk medication (Chronic) Primary small cell malignant neoplasm of lung, stage 3 (Chronic) Acute DVT (deep venous thrombosis) (Chronic) Nocturnal hypoxia (Chronic) Radiation esophagitis (Chronic) HLD (hyperlipidemia) (Chronic) Small cell lung cancer (Chronic) Obesity (BMI 30-39.9) (Chronic) Smoking addiction (Chronic) COPD (chronic obstructive pulmonary disease) (Chronic) HTN (hypertension) (Chronic) GERD (gastroesophageal reflux disease) (Acute) History of DVT (deep vein thrombosis) (Acute) PND (post-nasal drip) (Acute) Bradycardia (Resolved) Chest pain (Resolved) Acute cystitis (Inactive) Adjustment and management of vascular access device (Inactive) Chemotherapy induced nausea and vomiting (Inactive) DVT of upper extremity (deep vein thrombosis) (Inactive) Encephalopathy (Inactive) Lightheadedness (Inactive) Pancytopenia (Inactive) Sepsis (Inactive) Past Surgical History (Last Reviewed 11/24/18 @ 09:42 by Cheri Vo) History of coronary artery stent placement (Chronic) H/O percutaneous transluminal coronary angioplasty (Resolved) Hx of appendectomy (Resolved) Maternal Family History: Family History (Last Reviewed 11/24/18 @ 09:42 by Cheri Vo) Father Heart disease Mother Cancer Brother Diabetes Son Atrial fibrillation Family History: Cancer - Lung cancer Paternal Family History: Family History (Last Reviewed 11/24/18 @ 09:42 by Cheri Vo) Father Heart disease Mother Cancer Brother Diabetes Son Atrial fibrillation Family History: Heart Disease Sibling Family History: Family History (Last Reviewed 11/24/18 @ 09:42 by Cheri Vo) Father Heart disease Mother Cancer Brother Diabetes Son Atrial fibrillation Family History: Diabetes - Social History Lives: Spouse/ Significant Other Smoking Status: Former smoker Tobacco Use: Non-smoker Alcohol: None Drugs: None Allergies/Adverse Reactions: Allergy/AdvReac Type Severity Reaction Status Date / Time No Known Allergies Allergy Verified 11/24/18 09:42 Review of Systems Constitutional:: Reports: Weakness, Fatigue. Denies: Fever, Sweats, Weight loss, Appetite change, Chills Cardiovascular:: Reports: Dyspnea on exertion. Denies: Chest pain, Palpitations, Orthopnea, PND, Shortness of breath Respiratory: Reports: Cough. Denies: Hemoptysis, Wheezing Gastrointestinal:: Reports: Constipation. Denies: Abdominal pain, Nausea, Vomiting, Diarrhea, Hematochezia Genitourinary: Denies: Dysuria, Hematuria, 15, Flank pain Musculoskeletal:: Denies: Back pain, Myalgia, Arthralgia Skin: Denies: Rash, Skin Changes, Wounds Neurological:: Denies: Headache, Dizziness, Numbness, Tingling, Visual changes, Tinnitus, Hearing loss Psychiatric: Denies: Anxiety, Depression, Homicidal Ideations, Suicidal Ideations Vital Signs Height 5 ft 11 in Weight: 211 lb 10.3 oz Weight in Pounds 211.6 lbs BMI 28.1 Pulse Ox 93 Temperature 98.2 F Pulse Rate 71 Respiratory Rate 18 Blood Pressure 100/57 Blood Pressure Position Semi-Fowlers - Physical Exam General: Alert, Oriented x3, No apparent distress HEENT: Atraumatic, PERRLA, EOMI, Normocephalic Oropharynx:: Negative for: Dry mucosa, Ulcerated lesions Neck:: Supple, Trachea midline. Negative for: JVD, bilateral Cardiac:: Regular rate, Regular rhythm, Normal S1, Normal S2. Negative for: Murmur Lungs: Clear to auscultation, Excusion symmetrical. Negative for: Rhonchi, Wheezes, Tachypneic, Increased respiratory effort Abdomen:: Bowel sounds x 4, Soft, Non-tender, Non-distended. Negative for: Hepatosplenomegaly Extremities:: Negative for: Cyanosis, Edema Neurological: Neuro grossly intact Skin:: Ecchymosis - BUE, - - Port right upper chest accessed with gripper covered with transparent DSD, surrounding integument intact. Negative for: Lesions, Rash, Petechiae Psychiatric:: Appropriate affect, Euthymic Lymphatics:: Negative for: Cervical lymphadenopathy, Supraclavicular lymphadenopathy, Axillary lymphadenopathy Laboratory Data: Microbiology 12/03/18 19:35 Streptococcus pneumoniae Antigen (M - Final Urine, Clean Catch 12/03/18 19:35 Legionella Antigen - Final Urine, Clean Catch Laboratory Tests 12/04/18 12/03/18 12/03/18 Range/Units 12:25 22:40 20:10 WBC 1.5 L* (4.4-11.0) K/mm3 RBC 2.60 L (4.6-6.2) M/mm3 Hgb 7.4 L (13.0-16.5) g/dl Hct 23.2 L (40-54) % MCV 89.2 (80-94) fL MCH 28.5 (27.0-32.0) pg MCHC 31.9 L (32-36) g/gl RDW 12.8 (11.6-14.6) % RDW Differential 39.8 (35.1-43.9) fl Plt Count 47 L* (150-450) K/mm3 MPV 9.5 (6.2-12.0) fl Immature Gran % (Auto) 0.700 (0.0-0.9) % Neut % (Auto) 45.0 L (47-70) % Lymph % (Auto) 44.4 H (19-41) % [place] % (Auto) 8.5 (0-10) % Eos % (Auto) 0.7 (0-5) % Baso % (Auto) 0.7 (0-1) % Absolute Neuts (auto) 0.7 L (2.0-7.7) X10^3/uL Absolute Lymphs (auto) 0.68 L (0.83-4.51) X10^3/ul Total Counted Not Reportable Differential Comment SCANNED Diff Path Review May foll Platelet Estimate (ADEQ) Sodium (136-145) mmol/L Potassium (3.5-5.1) mmol/L Chloride (98-107) mmol/L Carbon Dioxide (21.0-32.0) mmol/L Anion Gap (5-15) BUN (7-18) mg/dL Creatinine (0.70-1.30) mg/dL Estim Creat Clear Calc ml/min Est GFR (MDRD) Af Amer (>60) mL/min Est GFR (MDRD) Non-Af (>60) mL/min BUN/Creatinine Ratio (10-20) RATIO Glucose (74-106) mg/dL Lactic Acid (0.4-2.0) mmol/L Calcium (8.5-10.1) mg/dL Troponin I < 0.015 < 0.015 (<0.045) ng/mL Urine Color (Yellow) Urine Clarity (Clear) Urine pH (5.0 - 8.0) Ur Specific [place] (1.002-1.030) Urine Protein (Negative) mg/dl Urine Glucose (UA) (Normal) mg/dl Urine Ketones (Negative) mg/dl Urine Occult Blood (Negative) /ul Urine Nitrite (Negative) Urine Bilirubin (Negative) mg/dL Urine Urobilinogen (Normal) mg/dl Ur Leukocyte Esterase (Negative) /ul Urine RBC (0-5) /hpf Urine WBC (0-5) /hpf Ur Squamous Epith Cells (0-5) /hpf Urine Bacteria (None Seen) /hpf Urine Mucus (<or=2+) /hpf Blood Type 12/03/18 12/03/18 12/03/18 Range/Units 20:10 17:35 16:10 WBC (4.4-11.0) K/mm3 RBC (4.6-6.2) M/mm3 Hgb (13.0-16.5) g/dl Hct (40-54) % MCV (80-94) fL MCH (27.0-32.0) pg MCHC (32-36) g/gl RDW (11.6-14.6) % RDW Differential (35.1-43.9) fl Plt Count (150-450) K/mm3 MPV (6.2-12.0) fl Immature Gran % (Auto) (0.0-0.9) % Neut % (Auto) (47-70) % Lymph % (Auto) (19-41) % [place] % (Auto) (0-10) % Eos % (Auto) (0-5) % Baso % (Auto) (0-1) % Absolute Neuts (auto) (2.0-7.7) X10^3/uL Absolute Lymphs (auto) (0.83-4.51) X10^3/ul Total Counted Differential Comment Diff Path Review Platelet Estimate (ADEQ) Sodium (136-145) mmol/L Potassium (3.5-5.1) mmol/L Chloride (98-107) mmol/L Carbon Dioxide (21.0-32.0) mmol/L Anion Gap (5-15) BUN (7-18) mg/dL Creatinine (0.70-1.30) mg/dL Estim Creat Clear Calc ml/min Est GFR (MDRD) Af Amer (>60) mL/min Est GFR (MDRD) Non-Af (>60) mL/min BUN/Creatinine Ratio (10-20) RATIO Glucose (74-106) mg/dL Lactic Acid 1.7 (0.4-2.0) mmol/L Calcium (8.5-10.1) mg/dL Troponin I (<0.045) ng/mL Urine Color Yellow (Yellow) Urine Clarity Sl. Cloudy (Clear) Urine pH 6.5 (5.0 - 8.0) Ur Specific [place] 1.010 (1.002-1.030) Urine Protein 30 H (Negative) mg/dl Urine Glucose (UA) Normal (Normal) mg/dl Urine Ketones Negative (Negative) mg/dl Urine Occult Blood 25 H (Negative) /ul Urine Nitrite Negative (Negative) Urine Bilirubin Negative (Negative) mg/dL Urine Urobilinogen 1 H (Normal) mg/dl Ur Leukocyte Esterase 25 H (Negative) /ul Urine RBC 0-5 SEEN (0-5) /hpf Urine WBC 0-5 SEEN (0-5) /hpf Ur Squamous Epith Cells 0-5 SEEN (0-5) /hpf Urine Bacteria 0 SEEN (None Seen) /hpf Urine Mucus 0 SEEN (<or=2+) /hpf Blood Type A POSITIVE 12/03/18 12/03/18 Range/Units 16:10 16:10 WBC 2.1 L (4.4-11.0) K/mm3 RBC 4.00 L (4.6-6.2) M/mm3 Hgb 11.6 L (13.0-16.5) g/dl Hct 34.8 L (40-54) % MCV 87.0 (80-94) fL MCH 29.0 (27.0-32.0) pg MCHC 33.3 (32-36) g/gl RDW 13.1 (11.6-14.6) % RDW Differential 41.9 (35.1-43.9) fl Plt Count 11 L* (150-450) K/mm3 MPV 12.7 H (6.2-12.0) fl Immature Gran % (Auto) 0.000 (0.0-0.9) % Neut % (Auto) 59.9 (47-70) % Lymph % (Auto) 34.3 (19-41) % [place] % (Auto) 5.8 (0-10) % Eos % (Auto) 0.0 (0-5) % Baso % (Auto) 0.0 (0-1) % Absolute Neuts (auto) 1.2 L (2.0-7.7) X10^3/uL Absolute Lymphs (auto) 0.71 L (0.83-4.51) X10^3/ul Total Counted Not Reportable Differential Comment SCANNED Diff Path Review May foll Platelet Estimate MKD DEC (ADEQ) Sodium 139 (136-145) mmol/L Potassium 4.0 (3.5-5.1) mmol/L Chloride 103 (98-107) mmol/L Carbon Dioxide 28.0 (21.0-32.0) mmol/L Anion Gap 8 (5-15) BUN 14 (7-18) mg/dL Creatinine 1.17 (0.70-1.30) mg/dL Estim Creat Clear Calc 60.78 ml/min Est GFR (MDRD) Af Amer 79 (>60) mL/min Est GFR (MDRD) Non-Af 65 (>60) mL/min BUN/Creatinine Ratio 12.0 (10-20) RATIO Glucose 108 H (74-106) mg/dL Lactic Acid (0.4-2.0) mmol/L Calcium 8.5 (8.5-10.1) mg/dL Troponin I < 0.015 (<0.045) ng/mL Urine Color (Yellow) Urine Clarity (Clear) Urine pH (5.0 - 8.0) Ur Specific [place] (1.002-1.030) Urine Protein (Negative) mg/dl Urine Glucose (UA) (Normal) mg/dl Urine Ketones (Negative) mg/dl Urine Occult Blood (Negative) /ul Urine Nitrite (Negative) Urine Bilirubin (Negative) mg/dL Urine Urobilinogen (Normal) mg/dl Ur Leukocyte Esterase (Negative) /ul Urine RBC (0-5) /hpf Urine WBC (0-5) /hpf Ur Squamous Epith Cells (0-5) /hpf Urine Bacteria (None Seen) /hpf Urine Mucus (<or=2+) /hpf Blood Type Diagnostic Data: Diagnostic Data Chest X-Ray 12/03/18 15:35 IMPRESSION: Cardiomegaly with low volume inspiration. Patchy opacity in the left midlung zone compatible with early/developing pneumonia. Electronically Signed: Ezio Rincon MD at 15:54 EDT , Service support , Assessment and Plan 1. Right Non-small Cell lung cancer, squamous cell type, stage IIIA( cT1b cN2 M0)- Began carboplatin/gemcitabine on 11/17/18, day 8 gemcitabine administered on 11/24/18. Tolerated well with the exception of myelosuppression. 2. Pancytopenia- As evidenced by platelets 47,000 (up from 11,000 yesterday subsequent to 5 pk platelets), Hgb 7.4 and ANC now 0.7. Patient did not receive prophylaxis with G CSF, orders placed for Granix 300 mcg x1. Today is day 18 of cycle 1. Carboplatin is notorious for causing thrombocytopenia and often later in the cycle (IBETH at 21 days). Transfuse in the event platelets <20,000 and PRBCs for Hgb <7 or <8 and he becomes symptomatic. (He is asymptomatic at the present time). 3. Neutropenic fever- r/t ROBERT infiltrate. On vancomycin and meropenem. Blood cultures pending. 4. History of limited stage small cell lung cancer- s/p 4 cycles of cisplatin/etoposide and radiation completed 06/2016. Patient was in agreement with the aforementioned plan. Will continue to follow. Moon Mo, MSN, [employer], AOCNP Medications: Medications Added to Medication List This Visit Category Date Time Status Albuterol Aerosols [Ventolin Aerosols] Med 12/04/18 14:13 Active 2.5 mg INHALATION Q2H PRN PRN Amiodarone HCl [Cordarone] Med 12/04/18 10:00 Active 100 mg PO DAILY Ascorbic Acid [Vitamin C] Med 12/04/18 10:00 Active 500 mg PO DAILY Cholecalciferol (VIT D3) [Vitamin D] Med 12/04/18 10:00 Active 5,000 unit PO DAILY Multivitamins,Ther W-Minerals [Multivitamin With Med 12/04/18 08:00 Active Minerals] 1 tablet PO DAILYCM Vancomycin IV [Vancomycin] Med 12/04/18 09:30 Active 1,000 mg in 200 ml IV Q12H Primary Care Provider: Rogelio Green Referring Provider: Elina Berrios MD - Problem List (1) Non-small cell carcinoma of left lung, stage 3 Status: Chronic (2) Pancytopenia Status: Acute (3) Small cell lung cancer Status: Resolved
[2018-12-04] MEDS: 0.9% Normal Saline 1,000 ML 100 ML IV (14:43)
[2018-12-04 17:24] LABS: Absolute Neutrophil Count 0.6 X10^3/uL (2.0-7.7); Eosinophil# 0.01 X10^3/uL; Eosinophils% 0.6 % (0-5); Hematocrit 22.1 % (40-54); Hemoglobin 7.4 g/dl (13.0-16.5); Lymphocyte % 43.8 % (19-41); Mean Corp Hgb Conc 33.5 g/gl (32-36); Mean Corpuscular Hgb 29.4 pg (27.0-32.0); Mean Corpuscular Volume 87.7 fL (80-94); Mean Platelet Vol. 9.1 fl (6.2-12.0); Monocyte# 0.24 X10^3/uL; Neutrophil # 0.64 X10^3/uL (2.7-7.7); Platelet Count 52 K/mm3 (150-450); RBC Distribution Width CV 13.2 % (11.6-14.6); RBC Distribution Width SD 42.8 fl (35.1-43.9); Red Blood Count 2.52 M/mm3 (4.6-6.2); White Blood Count 1.6 K/mm3 (4.4-11.0)
[2018-12-04 17:25] LABS: Differential Indicated SCAN CRITERIA MET; POSITIVE COUNT NO; POSITIVE DIFFERENTIAL YES; POSITIVE MORPHOLOGY YES
[2018-12-04 18:04] LABS: Anisocytosis RARE; Macrocytosis RARE; Platelet Estimate MOD DEC (ADEQ)
[2018-12-04] MEDS: TBO-FILGRASTIM 300 MCG/0.5 ML ML SC (18:10)
[2018-12-04] MEDS: Atorvastatin Calcium 10 MG Tablet PO (21:15)
[2018-12-04] MEDS: Acetaminophen 325 MG Tablet 650 MG PO (22:43)
[2018-12-05] VITALS (11 sets, daily range): BP systolic 91–121; BP diastolic 44–74; PULSE 72–88; RESP 16–18; TEMP 36.6–37.1; O2SAT 93–95
[2018-12-05] MEDS: Ibuprofen 400 MG Tablet PO ×2 (05:01→21:18)
[2018-12-05 06:39] LABS: Anion Gap 6 (5-15); BUN 17 mg/dL (7-18); BUN/Creat Ratio 16.8 RATIO (10-20); Calcium,Total 8.1 mg/dL (8.5-10.1); Chloride 107 mmol/L (98-107); Creatinine, Serum 1.01 mg/dL (0.70-1.30); EST Glomerular Filtration Rate 77 mL/min (>60); Est Glom Filt Rate - Afr Amer 93 mL/min (>60); Estimated Creatinine Clearance 70.41 ml/min; Glucose 107 mg/dL (74-106); Potassium 3.8 mmol/L (3.5-5.1); Sodium Level 141 mmol/L (136-145)
[2018-12-05 07:01] LABS: Hemoglobin 7.6 g/dl (13.0-16.5); Mean Corpuscular Hgb 28.8 pg (27.0-32.0); Mean Corpuscular Volume 87.1 fL (80-94); RBC Distribution Width CV 13.3 % (11.6-14.6); RBC Distribution Width SD 42.7 fl (35.1-43.9); Red Blood Count 2.64 M/mm3 (4.6-6.2); White Blood Count 1.7 K/mm3 (4.4-11.0)
[2018-12-05 07:16] LABS: Differential Indicated MANUAL DIFF; POSITIVE COUNT YES; POSITIVE DIFFERENTIAL YES; POSITIVE MORPHOLOGY YES; Platelet Count 48 K/mm3 (150-450)
[2018-12-05] MEDS: Amiodarone 200 MG Tablet 100 MG PO (08:17)
[2018-12-05] MEDS: Multivitamins,Ther W-Minerals Tablet 1 TABLET PO (08:18)
[2018-12-05] MEDS: Ascorbic Acid 500 MG Tablet PO (08:18)
[2018-12-05 08:39] LABS: Eosinophil 1 % (0-5); Lymphocyte 40 % (19-41); Monocyte 16 % (0-10); Neutrophil-Segmented 43 % (47-70); Platelet Estimate MKD DEC (ADEQ); Red Cell Morphology NORM C+C NORMAL (NORM C&C); Total Cells Counted 100 (MANUAL DIFF)
[2018-12-05 08:41] LABS: Absolute Lymphocyte Count 0.68 X10^3/ul (0.83-4.51); Absolute Neutrophil Count 0.7 X10^3/uL (2.0-7.7); Lymphocyte # 0.68 X10^3/ul (4.0)
--- NOTE | 2018-12-05 08:58 | PCM.PN.HOSP ---
Patient Problems: Active and Suspected Problems (Last Updated 12/04/18 @ 14:08 by Cesar Cash DO) Gram-negative pneumonia (Acute) Pancytopenia (Acute) Neutropenic fever (Acute) Subjective: Patient is a 73-year-old gentleman with diagnosis of non-small cell lung CA currently undergoing chemo and radiation therapy admitted with fever. Patient was also found to be neutropenic. Chest x-ray obtained on admission demonstrated features consistent with pneumonia admitted to the regular nursing floor for further management Objective: GENERAL: cooperative HEENT: Atraumatic; EYES; Anicteric, Normal Conjunctiva NECK; supple, normal thyroid, RESPIRATORY: Diminished to auscultation CARDIOVASCULAR: Regular S1 S2, GI: soft, non-tender, normoactive bowel sounds, : No Renal angle tenderness; EXTREMITIES: No edema, no clubbing, no cyanosis. NEURO: Awake; no lateralizing signs. SKIN: Bruises both upper extremities PSYCH; Normal affect Vitals/I&O's: Vital Signs Temp Pulse Resp BP Pulse Ox 98.5 F 77 18 91/44 L 95 12/05/18 02:00 12/05/18 05:01 12/05/18 02:00 12/05/18 02:00 12/05/18 07:14 Oxygen Flow Rate (L/min) 2 Oxygen Delivery Method Room Air Weight: 97.5 kg Body Mass Index (BMI) 28.5 Intake and Output for Last 24 Hours 12/03/18 12/04/18 12/05/18 23:59 23:59 23:59 Intake Total 836 / 836 1593 / 1593 1047 / 1047 Output Total 800 / 800 625 / 625 Balance 836 / 836 793 / 793 422 / 422 Microbiology Past 72 Hours 12/04/18 12:05 Sputum, Expectorated/Coughed Gram Stain - Final 12/03/18 19:35 Urine, Clean Catch Streptococcus pneumoniae Antigen (M - Final 12/03/18 19:35 Urine, Clean Catch Legionella Antigen - Final Laboratory Results 12/03/18 20:10: Blood Type Cancelled, A1 Antigen Typing Cancelled, Rho(D) Type Cancelled, Antibody Screen NEGATIVE, Crossmatch See Detail 12/04/18 12:25: WBC 1.5 L*, RBC 2.60 L, Hgb 7.4 L, Hct 23.2 L, MCV 89.2, MCH 28.5, MCHC 31.9 L, RDW 12.8, RDW Differential 39.8, Plt Count 47 L*, MPV 9.5, Immature Gran % (Auto) 0.700, Neut % (Auto) 45.0 L, Lymph % (Auto) 44.4 H, [place] % (Auto) 8.5, Eos % (Auto) 0.7, Baso % (Auto) 0.7, Absolute Neuts (auto) 0.7 L, Absolute Lymphs (auto) 0.68 L, Total Counted Not Reportable, Differential Comment SCANNED, Diff Path Review November12/04/18 17:00: WBC 1.6 L, RBC 2.52 L, Hgb 7.4 L, Hct 22.1 L, MCV 87.7, MCH 29.4, MCHC 33.5, RDW 13.2, RDW Differential 42.8, Plt Count 52 L, MPV 9.1, Immature Gran % (Auto) 0.600, Neut % (Auto) 40.0 L, Lymph % (Auto) 43.8 H, [place] % (Auto) 15.0 H, Eos % (Auto) 0.6, Baso % (Auto) 0.0, Absolute Neuts (auto) 0.6 L, Absolute Lymphs (auto) 0.70 L, Total Counted Not Reportable, Differential Comment SEE COMMENT, Platelet Estimate MOD DEC, Anisocytosis RARE, Macrocytosis RARE 12/05/18 06:17: WBC 1.7 L, RBC 2.64 L, Hgb 7.6 L, Hct 23.0 L, MCV 87.1, MCH 28.8, MCHC 33.0, RDW 13.3, RDW Differential 42.7, Plt Count 48 L*, MPV 10.0, Neut % (Auto) Not Reportable, Absolute Neuts (auto) 0.7 L, Absolute Lymphs (auto) 0.68 L, Total Counted 100, Neutrophils % (Manual) 43 L, Lymphocytes % (Manual) 40, Monocytes % (Manual) 16 H, Eosinophils % (Manual) 1, Diff Path Review November [facility], Platelet Estimate MKD DEC, RBC Morphology NORM C+C 12/05/18 06:17: Sodium 141, Potassium 3.8, Chloride 107, Carbon Dioxide 28.0, Anion Gap 6, BUN 17, Creatinine 1.01, Estim Creat Clear Calc 70.41, Est GFR (MDRD) Af Amer 93, Est GFR (MDRD) Non-Af 77, BUN/Creatinine Ratio 16.8, Glucose 107 H, Calcium 8.1 L 12/05/18 08:40: Vancomycin Trough Pending Current Medications Acetaminophen (Tylenol) 650 mg PO Q6H PRN PRN PRN Reason: Mild Pain (1-3)/Temp > 100.7 F Last Admin: 12/04/18 22:43 Dose: 650 mg Albuterol Sulfate (Ventolin Aerosols) 2.5 mg INHALATION Q2H PRN PRN PRN Reason: SHORTNESS OF BREATH Amiodarone HCl (Cordarone) 100 mg PO DAILY [facility] Last Admin: 12/05/18 08:17 Dose: 100 mg Ascorbic Acid (Vitamin C) 500 mg PO DAILY [facility] Last Admin: 12/05/18 08:18 Dose: 500 mg Atorvastatin Calcium (Lipitor) 10 mg PO QHS [facility] Last Admin: 12/04/18 21:15 Dose: 10 mg Cholecalciferol (Vitamin D) 5,000 unit PO DAILY [facility] Last Admin: 12/05/18 08:18 Dose: 5,000 unit Meropenem 1 gm/ Sodium (Chloride) 120 mls @ 33 mls/hr IV Q8 [facility] Last Admin: 12/05/18 05:02 Dose: 33 mls/hr Vancomycin IV Pharmacy to Dose (1 ea/ Sodium Chloride) 500 mls @ 250 mls/hr IV PRN PRN; Protocol PRN Reason: Rx to Dose Vancomycin HCl (Vancomycin) 1,000 mg in 200 mls @ 200 mls/hr IV Q12H [facility] Last Admin: 12/04/18 21:18 Dose: 200 mls/hr Ibuprofen (Motrin) 400 mg PO Q6H PRN PRN PRN Reason: MILD PAIN (1-3/10) Last Admin: 12/05/18 05:01 Dose: 400 mg Metoprolol Tartrate (Lopressor (Beta Sukhwinder)) 50 mg PO BID [facility] Last Admin: 12/05/18 08:18 Dose: Not Given Multivitamins/Minerals ([facility]ivitamin With Minerals) [facility] Last Admin: 12/05/18 08:18 Dose: 1 tablet Nitroglycerin (Nitrostat) 0.4 mg SUBLINGUAL Q5M PRN PRN Reason: CARDIAC/CHEST PAIN Nutritional Formula (Lactose Free) (Ensure Enlive) 120 ml PO 4X/DAY CROW Last Admin: 12/05/18 08:18 Dose: 120 ml Ondansetron HCl (Zofran) 4 mg IV Q8H PRN PRN PRN Reason: NAUSEA/VOMITING Sodium Chloride () 5 - 15 ml IV UD PRN PRN Reason: SALINE FLUSH Last Admin: 12/04/18 17:11 Dose: 10 ml Medical Necessity - Tobacco Use Smoking Status: Former smoker Tobacco Use: Non-smoker Assessment/Plan All Active Problems (Last Updated 12/04/18 @ 14:08 by Cesar Cash DO) Gram-negative pneumonia (Acute) Pancytopenia (Acute) Neutropenic fever (Acute) Chest pain at rest (Acute) Small cell lung cancer (Resolved) Bradycardia (Resolved) Chest pain (Resolved) Patient is a 73-year-old gentleman with diagnosis of non-small cell lung CA currently undergoing chemo and radiation therapy admitted with fever. Patient was also found to be neutropenic. Chest x-ray obtained on admission demonstrated features consistent with pneumonia admitted to the regular nursing floor for further management 1. Acute febrile neutropenia secondary to left midlung zone early/developing pneumonia. Patient was initially managed with precautions as well as broad-spectrum antibiotic therapy with vancomycin and meropenem. Vancomycin discontinued on 11/04/2018. Blood cultures have so far remained negative to date 2. Pancytopenia (secondary to recent chemotherapy) with neutropenia, anemia as well as thrombocytopenia status post platelet transfusion 3. Non-small cell lung CA IIIA currently undergoing chemo and radiation therapy 4. Essential hypertension-blood pressure controlled, home medications continued with dose adjustment as needed 5. Dyslipidemia-patient is on statin therapy, continued at home dose 6. COPD; stable 7. Morbid obesity with BMI of 30 7. DVT prophylaxis encourage early ambulation Advance planning; did discuss with the patient regarding advanced directives as well as CODE STATUS. Did explain the various scenarios involved ( FULL CODE, DNR CCA, DNR CCA with no intubation, and DNR CC and what each meant) patient elected to remain full code. Order was placed. Time spent on discussion 18 minutes. Clinical Impression(s) from Imaging Studies Chest X-Ray 12/03/18 15:35 IMPRESSION: Cardiomegaly with low volume inspiration. Patchy opacity in the left midlung zone compatible with early/developing pneumonia. Electronically Signed: Ezio Rincon MD at 15:54 EDT , Service support , Active Medications Acetaminophen (Tylenol) 650 mg PO Q6H PRN PRN PRN Reason: Mild Pain (1-3)/Temp > 100.7 F Last Admin: 12/04/18 22:43 Dose: 650 mg Albuterol Sulfate (Ventolin Aerosols) 2.5 mg INHALATION Q2H PRN PRN PRN Reason: SHORTNESS OF BREATH Amiodarone HCl (Cordarone) 100 mg PO DAILY [facility] Last Admin: 12/05/18 08:17 Dose: 100 mg Ascorbic Acid (Vitamin C) 500 mg PO DAILY [facility] Last Admin: 12/05/18 08:18 Dose: 500 mg Atorvastatin Calcium (Lipitor) 10 mg PO QHS [facility] Last Admin: 12/04/18 21:15 Dose: 10 mg Cholecalciferol (Vitamin D) 5,000 unit PO DAILY [facility] Last Admin: 12/05/18 08:18 Dose: 5,000 unit Meropenem 1 gm/ Sodium (Chloride) 120 mls @ 33 mls/hr IV Q8 [facility] Last Admin: 12/05/18 05:02 Dose: 33 mls/hr Vancomycin IV Pharmacy to Dose (1 ea/ Sodium Chloride) 500 mls @ 250 mls/hr IV PRN PRN; Protocol PRN Reason: Rx to Dose Vancomycin HCl (Vancomycin) 1,000 mg in 200 mls @ 200 mls/hr IV Q12H [facility] Last Admin: 12/04/18 21:18 Dose: 200 mls/hr Ibuprofen (Motrin) 400 mg PO Q6H PRN PRN PRN Reason: MILD PAIN (1-3/10) Last Admin: 12/05/18 05:01 Dose: 400 mg Metoprolol Tartrate (Lopressor (Beta Sukhwinder)) 50 mg PO BID [facility] Last Admin: 12/05/18 08:18 Dose: Not Given Multivitamins/Minerals (Multivitamin With Minerals) [facility] Last Admin: 12/05/18 08:18 Dose: 1 tablet Nitroglycerin (Nitrostat) 0.4 mg SUBLINGUAL Q5M PRN PRN Reason: CARDIAC/CHEST PAIN Nutritional Formula (Lactose Free) (Ensure Enlive) 120 ml PO 4X/DAY CROW Last Admin: 12/05/18 08:18 Dose: 120 ml Ondansetron HCl (Zofran) 4 mg IV Q8H PRN PRN PRN Reason: NAUSEA/VOMITING Sodium Chloride () 5 - 15 ml IV UD PRN PRN Reason: SALINE FLUSH Last Admin: 12/04/18 17:11 Dose: 10 ml Code Visit Inpatient E&M: 66597 Subs Hosp L2 Procedures: 96677 Advncd Care Plan 30 Min
--- NOTE | 2018-12-05 09:02 | PN_ITS ---
Patient Problems: Active and Suspected Problems (Last Updated 12/04/18 @ 14:08 by Cesar Cash DO) Gram-negative pneumonia (Acute) Pancytopenia (Acute) Neutropenic fever (Acute) Subjective: Patient is a 73-year-old gentleman with diagnosis of non-small cell lung CA currently undergoing chemo and radiation therapy admitted with fever. Patient was also found to be neutropenic. Chest x-ray obtained on admission demonstrated features consistent with pneumonia admitted to the regular nursing floor for further management Objective: GENERAL: cooperative HEENT: Atraumatic; EYES; Anicteric, Normal Conjunctiva NECK; supple, normal thyroid, RESPIRATORY: Diminished to auscultation CARDIOVASCULAR: Regular S1 S2, GI: soft, non-tender, normoactive bowel sounds, : No Renal angle tenderness; EXTREMITIES: No edema, no clubbing, no cyanosis. NEURO: Awake; no lateralizing signs. SKIN: Bruises both upper extremities PSYCH; Normal affect Vitals/I&O's: Vital Signs Temp Pulse Resp BP Pulse Ox 98.5 F 77 18 91/44 L 95 12/05/18 02:00 12/05/18 05:01 12/05/18 02:00 12/05/18 02:00 12/05/18 07:14 Oxygen Flow Rate (L/min) 2 Oxygen Delivery Method Room Air Weight: 97.5 kg Body Mass Index (BMI) 28.5 Intake and Output for Last 24 Hours 12/03/18 12/04/18 12/05/18 23:59 23:59 23:59 Intake Total 836 / 836 1593 / 1593 1047 / 1047 Output Total 800 / 800 625 / 625 Balance 836 / 836 793 / 793 422 / 422 Microbiology Past 72 Hours 12/04/18 12:05 Sputum, Expectorated/Coughed Gram Stain - Final 12/03/18 19:35 Urine, Clean Catch Streptococcus pneumoniae Antigen (M - Final 12/03/18 19:35 Urine, Clean Catch Legionella Antigen - Final Laboratory Results 12/03/18 20:10: Blood Type Cancelled, A1 Antigen Typing Cancelled, Rho(D) Type Cancelled, Antibody Screen NEGATIVE, Crossmatch See Detail 12/04/18 12:25: WBC 1.5 L*, RBC 2.60 L, Hgb 7.4 L, Hct 23.2 L, MCV 89.2, MCH 28.5, MCHC 31.9 L, RDW 12.8, RDW Differential 39.8, Plt Count 47 L*, MPV 9.5, Immature Gran % (Auto) 0.700, Neut % (Auto) 45.0 L, Lymph % (Auto) 44.4 H, [place] % (Auto) 8.5, Eos % (Auto) 0.7, Baso % (Auto) 0.7, Absolute Neuts (auto) 0.7 L, Absolute Lymphs (auto) 0.68 L, Total Counted Not Reportable, Differential Comment SCANNED, Diff Path Review November12/04/18 17:00: WBC 1.6 L, RBC 2.52 L, Hgb 7.4 L, Hct 22.1 L, MCV 87.7, MCH 29.4, MCHC 33.5, RDW 13.2, RDW Differential 42.8, Plt Count 52 L, MPV 9.1, Immature Gran % (Auto) 0.600, Neut % (Auto) 40.0 L, Lymph % (Auto) 43.8 H, [place] % (Auto) 15.0 H, Eos % (Auto) 0.6, Baso % (Auto) 0.0, Absolute Neuts (auto) 0.6 L, Absolute Lymphs (auto) 0.70 L, Total Counted Not Reportable, Differential Comment SEE COMMENT, Platelet Estimate MOD DEC, Anisocytosis RARE, Macrocytosis RARE 12/05/18 06:17: WBC 1.7 L, RBC 2.64 L, Hgb 7.6 L, Hct 23.0 L, MCV 87.1, MCH 28.8, MCHC 33.0, RDW 13.3, RDW Differential 42.7, Plt Count 48 L*, MPV 10.0, Neut % (Auto) Not Reportable, Absolute Neuts (auto) 0.7 L, Absolute Lymphs (auto) 0.68 L, Total Counted 100, Neutrophils % (Manual) 43 L, Lymphocytes % (Manual) 40, Monocytes % (Manual) 16 H, Eosinophils % (Manual) 1, Diff Path Review November [facility], Platelet Estimate MKD DEC, RBC Morphology NORM C+C 12/05/18 06:17: Sodium 141, Potassium 3.8, Chloride 107, Carbon Dioxide 28.0, Anion Gap 6, BUN 17, Creatinine 1.01, Estim Creat Clear Calc 70.41, Est GFR (MDRD) Af Amer 93, Est GFR (MDRD) Non-Af 77, BUN/Creatinine Ratio 16.8, Glucose 107 H, Calcium 8.1 L 12/05/18 08:40: Vancomycin Trough Pending Current Medications Acetaminophen (Tylenol) 650 mg PO Q6H PRN PRN PRN Reason: Mild Pain (1-3)/Temp > 100.7 F Last Admin: 12/04/18 22:43 Dose: 650 mg Albuterol Sulfate (Ventolin Aerosols) 2.5 mg INHALATION Q2H PRN PRN PRN Reason: SHORTNESS OF BREATH Amiodarone HCl (Cordarone) 100 mg PO DAILY [facility] Last Admin: 12/05/18 08:17 Dose: 100 mg Ascorbic Acid (Vitamin C) 500 mg PO DAILY [facility] Last Admin: 12/05/18 08:18 Dose: 500 mg Atorvastatin Calcium (Lipitor) 10 mg PO QHS [facility] Last Admin: 12/04/18 21:15 Dose: 10 mg Cholecalciferol (Vitamin D) 5,000 unit PO DAILY [facility] Last Admin: 12/05/18 08:18 Dose: 5,000 unit Meropenem 1 gm/ Sodium (Chloride) 120 mls @ 33 mls/hr IV Q8 [facility] Last Admin: 12/05/18 05:02 Dose: 33 mls/hr Vancomycin IV Pharmacy to Dose (1 ea/ Sodium Chloride) 500 mls @ 250 mls/hr IV PRN PRN; Protocol PRN Reason: Rx to Dose Vancomycin HCl (Vancomycin) 1,000 mg in 200 mls @ 200 mls/hr IV Q12H [facility] Last Admin: 12/04/18 21:18 Dose: 200 mls/hr Ibuprofen (Motrin) 400 mg PO Q6H PRN PRN PRN Reason: MILD PAIN (1-3/10) Last Admin: 12/05/18 05:01 Dose: 400 mg Metoprolol Tartrate (Lopressor (Beta Sukhwinder)) 50 mg PO BID [facility] Last Admin: 12/05/18 08:18 Dose: Not Given Multivitamins/Minerals (Multivitamin With Minerals) [facility] Last Admin: 12/05/18 08:18 Dose: 1 tablet Nitroglycerin (Nitrostat) 0.4 mg SUBLINGUAL Q5M PRN PRN Reason: CARDIAC/CHEST PAIN Nutritional Formula (Lactose Free) (Ensure Enlive) 120 ml PO 4X/DAY CROW Last Admin: 12/05/18 08:18 Dose: 120 ml Ondansetron HCl (Zofran) 4 mg IV Q8H PRN PRN PRN Reason: NAUSEA/VOMITING Sodium Chloride () 5 - 15 ml IV UD PRN PRN Reason: SALINE FLUSH Last Admin: 12/04/18 17:11 Dose: 10 ml Medical Necessity - Tobacco Use Smoking Status: Former smoker Tobacco Use: Non-smoker Assessment/Plan All Active Problems (Last Updated 12/04/18 @ 14:08 by Cesar Cash DO) Gram-negative pneumonia (Acute) Pancytopenia (Acute) Neutropenic fever (Acute) Chest pain at rest (Acute) Small cell lung cancer (Resolved) Bradycardia (Resolved) Chest pain (Resolved) Patient is a 73-year-old gentleman with diagnosis of non-small cell lung CA currently undergoing chemo and radiation therapy admitted with fever. Patient was also found to be neutropenic. Chest x-ray obtained on admission demonstrated features consistent with pneumonia admitted to the regular nursing floor for further management 1. Acute febrile neutropenia secondary to left midlung zone early/developing pneumonia. Patient was initially managed with precautions as well as broad- spectrum antibiotic therapy with vancomycin and meropenem. Vancomycin discontinued on 11/04/2018. Blood cultures have so far remained negative to date 2. Pancytopenia (secondary to recent chemotherapy) with neutropenia, anemia as well as thrombocytopenia status post platelet transfusion 3. Non-small cell lung CA IIIA currently undergoing chemo and radiation therapy 4. Essential hypertension-blood pressure controlled, home medications continued with dose adjustment as needed 5. Dyslipidemia-patient is on statin therapy, continued at home dose 6. COPD; stable 7. Morbid obesity with BMI of 30 7. DVT prophylaxis encourage early ambulation Advance planning; did discuss with the patient regarding advanced directives as well as CODE STATUS. Did explain the various scenarios involved ( FULL CODE, DNR CCA, DNR CCA with no intubation, and DNR CC and what each meant) patient elected to remain full code. Order was placed. Time spent on discussion 18 minutes. Clinical Impression(s) from Imaging Studies Chest X-Ray 12/03/18 15:35 IMPRESSION: Cardiomegaly with low volume inspiration. Patchy opacity in the left midlung zone compatible with early/developing pneumonia. Electronically Signed: Ezio Rincon MD at 15:54 EDT , Service support , Active Medications Acetaminophen (Tylenol) 650 mg PO Q6H PRN PRN PRN Reason: Mild Pain (1-3)/Temp > 100.7 F Last Admin: 12/04/18 22:43 Dose: 650 mg Albuterol Sulfate (Ventolin Aerosols) 2.5 mg INHALATION Q2H PRN PRN PRN Reason: SHORTNESS OF BREATH Amiodarone HCl (Cordarone) 100 mg PO DAILY [facility] Last Admin: 12/05/18 08:17 Dose: 100 mg Ascorbic Acid (Vitamin C) 500 mg PO DAILY [facility] Last Admin: 12/05/18 08:18 Dose: 500 mg Atorvastatin Calcium (Lipitor) 10 mg PO QHS [facility] Last Admin: 12/04/18 21:15 Dose: 10 mg Cholecalciferol (Vitamin D) 5,000 unit PO DAILY [facility] Last Admin: 12/05/18 08:18 Dose: 5,000 unit Meropenem 1 gm/ Sodium (Chloride) 120 mls @ 33 mls/hr IV Q8 [facility] Last Admin: 12/05/18 05:02 Dose: 33 mls/hr Vancomycin IV Pharmacy to Dose (1 ea/ Sodium Chloride) 500 mls @ 250 mls/hr IV PRN PRN; Protocol PRN Reason: Rx to Dose Vancomycin HCl (Vancomycin) 1,000 mg in 200 mls @ 200 mls/hr IV Q12H [facility] Last Admin: 12/04/18 21:18 Dose: 200 mls/hr Ibuprofen (Motrin) 400 mg PO Q6H PRN PRN PRN Reason: MILD PAIN (1-3/10) Last Admin: 12/05/18 05:01 Dose: 400 mg Metoprolol Tartrate (Lopressor (Beta Sukhwinder)) 50 mg PO BID [facility] Last Admin: 12/05/18 08:18 Dose: Not Given Multivitamins/Minerals (Multivitamin With Minerals) [facility] Last Admin: 12/05/18 08:18 Dose: 1 tablet Nitroglycerin (Nitrostat) 0.4 mg SUBLINGUAL Q5M PRN PRN Reason: CARDIAC/CHEST PAIN Nutritional Formula (Lactose Free) (Ensure Enlive) 120 ml PO 4X/DAY CROW Last Admin: 12/05/18 08:18 Dose: 120 ml Ondansetron HCl (Zofran) 4 mg IV Q8H PRN PRN PRN Reason: NAUSEA/VOMITING Sodium Chloride () 5 - 15 ml IV UD PRN PRN Reason: SALINE FLUSH Last Admin: 12/04/18 17:11 Dose: 10 ml Code Visit Inpatient E&M: 01628 Subs Hosp L2 Procedures: 20760 Advncd Care Plan 30 Min
[2018-12-05 09:26] LABS: Vancomycin, Trough Level 14.7 ug/mL (5.0-15.0)
[2018-12-05] MEDS: Vancomycin IV 1,000 MG/200 ML BAG 200 MG IV (09:55)
[2018-12-05] MEDS: 0.9% NaCl Peripheral Flush Adult/Peds IV (09:56)
--- NOTE | 2018-12-05 11:20 | CASEMGMT ---
RN CECILE Face to Face with patient for initial transition planning/care coordination assessment. RN CM introduced self and role at [facility]. Patient sitting in chair, alert and oriented. Patient willing to participate in assessment and is able to answer all questions appropriately. Care providers, pharmacy, and demographics verified. Patient wishes to discharge home, denies need for home health at this time. Patient states he has no further needs or concerns at this time. CM to follow for discharge planning needs that may arise. PCP: Norma Specialists: none [facility] [place] Pres[place] Benefit: Yes Living Will/HPOA: yes, Gabrielle Anders LNOK: Living Arrangements: Patient lives with in 2 story home and is able to ambulate stairs at home. Patient independent at home. Transportation: self/ DME/HHC: Patient states he has raised toilet and cane at home. Patient denies previous HHC or SNF. Disposition Plan: Patient to discharge home with family support and follow-up plans in place. Sidra WHEELER, RN, CM
--- NOTE | 2018-12-05 13:52 | ONC.PN.INPT ---
- Problem List (1) Non-small cell carcinoma of left lung, stage 3 Status: Chronic (2) Pancytopenia Status: Acute (3) Small cell lung cancer Status: Resolved (4) Neutropenic fever Status: Acute Subjective Date of Service:: 12/05/18 Pancytopenia, NSCLC on treatment Mr. Roberth Anders is a pleasant 73 y.o.man with a PMH significant for COPD, hypertension, hyperlipidemia who was diagnosed with small cell lung cancer, limited disease (T2, N2, M0) on 03/25/2016. He was treated with combined chemotherapy and radiation therapy. He received 4 cycles of cisplatin and etoposide from 04/21/2016 through 07/01/2016. Therapy was complicated by pancytopenia, DVT of the right upper extremity associated with the port, and radiation esophagitis. He had a partial response and was referred for prophylactic cranial irradiation and had [address] chest on 10/03/2018 showed increasing R lung nodule. PET/CT on 10/24/2018 showed hypermetabolic activities in R upper lobe and mediastinum/R hilar area. CT guided bx of right lung on 11/03/2018 showed non small cell carcinoma favoring squamous histology. He began Carboplatin and Gemzar on 11/17/2018, day 8 Gemzar administered on 11/24/18 attenuated by 25% d/t thrombocytopenia. The patient presented to [facility] ED 12/03/18 with c/o fever (102-highest) and increased frequency of productive cough. CXR showed a patchy opacity in the left midlung suggestive of early/developing pneumonia. CBC showed Hgb 11.6, ANC 1.2 and platelets 11,000. Lactic acid was normal. Began meropenem and admitted for management of pneumonia. Received 5 pk platelets 12/03/18. 1 dose of Granix 300 mcg on 12/04/18. Upon entering the room, patient is lying upright in bedside chair. Denies any outstanding complaints since we spoke yesterday. Specifically denies headaches, chills, sweats, CP, palpitations, abd pain, N/V, numbness/tingling and swelling/pain of his extremities. Has not required any prn antiemetics at home. Was constipated last week, now resolved. Bruises easily but denies any episodes of overt bleeding. Describes appetite as good, PO fluid intake as adequate. Past Medical History: Chronic Problems (Last Updated 12/04/18 @ 14:08 by Cesar Csah DO) Right upper lobe pulmonary nodule (Chronic) Non-small cell carcinoma of left lung, stage 3 (Chronic) Paroxysmal atrial fibrillation (Chronic) Atherosclerotic heart disease of [place] coronary artery without angina pectoris (Chronic) PTCA/stent of the mid LAD, prox 1st diag, prox RCA 08/13/10; PTCA/BETO of the Ostial/Prox 1st diag 12/15/16 Dyspnea (Chronic) Fatigue (Chronic) Wheezing (Chronic) Long-term use of high-risk medication (Chronic) Primary small cell malignant neoplasm of lung, stage 3 (Chronic) Acute DVT (deep venous thrombosis) (Chronic) Nocturnal hypoxia (Chronic) Radiation esophagitis (Chronic) HLD (hyperlipidemia) (Chronic) History of coronary artery stent placement (Chronic) PTCA/stent of the mid LAD, prox 1st diag, prox RCA 08/13/10; PTCA/BETO of the Ostial/Prox 1st diag 12/15/16 Obesity (BMI 30-39.9) (Chronic) Smoking addiction (Chronic) COPD (chronic obstructive pulmonary disease) (Chronic) HTN (hypertension) (Chronic) Past Medical History - Most Recent Inpatient Visit Past Medical History Start: 12/03/18 19:07 Text: Status: Complete Freq: ONCE Protocol: Document 12/03/18 20:02 CDS (Rec: 12/03/18 20:04 CDS [id number]) BMI Required to complete PMH What is Patient's BMI 28.6 Past Medical History Unable History Recalled No Query Text:Pt Unable/Family Not Present Neurologic Medical History Hx Stroke/TIA No Hx Dementia/Alzheimer's No Hx Parkinson's Disease No Hx Seizures No Hx Multiple Sclerosis No Hx Migraines No Cardiac Medical History VTE Present on Admission No Hx of Deep Vein Thrombosis/VTE/PE Yes: clot near chemo port in Right shoulder Hx Hypertension Yes: controlled with med Hx Chest Pain/Angina Yes: only to cough with recent cold Hx Heart Attack No Hx Cardiac Surgery/Stents/Etc. Yes: x5 stents Hx Heart Failure No Hx Pacemaker/AICD No Hx Irregular Heartbeat and/or Afib Yes: afib/follows with whg/ last visit 06/2018 Hx Anticoagulant Therapy Yes: aspirin, plavix Query Text:(Coumadin, Aspirin, Plavix, Xarelto, etc.) Hx Pain in Legs when Walking/Leg Cramps No Respiratory Medical History Hx COPD Yes: hx lung cancer Hx Emphysema No Hx Smoking Yes: quit 3 yrs ago/ 2ppds 51 yrs Smoking Status Former smoker Tobacco Use Non-smoker Hx Smoking Cessation Counseling No Hx Smoking Exposure No Hx Tobacco Use in last 12 months No Hx of Pipe Smoking No Hx Sleep Apnea No CPAP No Do you snore loudly (louder than talking No or can be heard through closed doors)? Do you often feel tired/ fatigued/ Yes sleepy during daytime? Has anyone observed you stop breathing No during sleep? STOP Results Positive GI Medical History Hx Ulcer No Hx Hepatitis No Hx Cirrhosis No Hx GI Bleed No Hx Unplanned Weight Loss No Genitourinary Medical History Indwelling Catheter in Place on Arrival/ No Admission Hx Renal Disease No Hx Dialysis No Musculoskeletal History Hx Arthritis No Hx Rheumatoid Arthritis No Endocrine Medical History Hx Diabetes No Hx Thyroid Disease No: abnormal lab at this time Hematologic Medical History Hx of Blood Transfusion Yes Hx of Transfusion in last 3 Months No Ever experience any problems with No transfusion(s)? Hx of Preganancy in last 3 Months N/A Nurse Filling Out Transfusion & CSNYDER Questions: Date: 12/03/18 Time: 20:03 Psycho/Social Medical History Hx Depression No Hx Anxiety No Hx Behavior Disorder No Hx Alcohol Use No Hx Substance Use No Other Medical History Hx Blood Disorders Yes: thrombocytopenia in the past Hx Anemia Yes: in the past Hx Cancer Yes: small cell lung cancer/ with radiation 2017/now with squamous cell Hx Drug Resistant Organism No Wound/Pressure Injury Present on Arrival No /Admission Query Text:If yes, chart assessment in Shift/Clinical Findings Central Line/PICC/VAD Present on Arrival Yes /Admission Risk for Readmission Number of Risk Factors 5 At Risk for Readmission Patient is At Risk For Readmission Patient is eligible for Call Back Y Past Medical History (Last Updated 12/04/18 @ 14:08 by Cesar Cash DO) Paroxysmal atrial fibrillation (Chronic) Atherosclerotic heart disease of [place] coronary artery without angina pectoris (Chronic) Dyspnea (Chronic) Fatigue (Chronic) Wheezing (Chronic) Long-term use of high-risk medication (Chronic) Primary small cell malignant neoplasm of lung, stage 3 (Chronic) Acute DVT (deep venous thrombosis) (Chronic) Nocturnal hypoxia (Chronic) Radiation esophagitis (Chronic) HLD (hyperlipidemia) (Chronic) Small cell lung cancer (Chronic) Obesity (BMI 30-39.9) (Chronic) Smoking addiction (Chronic) COPD (chronic obstructive pulmonary disease) (Chronic) HTN (hypertension) (Chronic) GERD (gastroesophageal reflux disease) (Acute) History of DVT (deep vein thrombosis) (Acute) PND (post-nasal drip) (Acute) Bradycardia (Resolved) Chest pain (Resolved) Acute cystitis (Inactive) Adjustment and management of vascular access device (Inactive) Chemotherapy induced nausea and vomiting (Inactive) DVT of upper extremity (deep vein thrombosis) (Inactive) Encephalopathy (Inactive) Lightheadedness (Inactive) Pancytopenia (Inactive) Sepsis (Inactive) Past Surgical History (Last Reviewed 11/24/18 @ 09:42 by Cheri Vo) History of coronary artery stent placement (Chronic) H/O percutaneous transluminal coronary angioplasty (Resolved) Hx of appendectomy (Resolved) Maternal Family History: Family History (Last Reviewed 11/24/18 @ 09:42 by Cheri Vo) Father Heart disease Mother Cancer Brother Diabetes Son Atrial fibrillation Family History: Cancer - Lung cancer Paternal Family History: Family History (Last Reviewed 11/24/18 @ 09:42 by Cheri Vo) Father Heart disease Mother Cancer Brother Diabetes Son Atrial fibrillation Family History: Heart Disease Sibling Family History: Family History (Last Reviewed 11/24/18 @ 09:42 by Cheri Vo) Father Heart disease Mother Cancer Brother Diabetes Son Atrial fibrillation Family History: Diabetes - Social History Lives: Spouse/ Significant Other Smoking Status: Former smoker Tobacco Use: Non-smoker Alcohol: None Drugs: None Review of Systems Constitutional:: Denies: Fever, Sweats, Weight loss, Appetite change, Chills Cardiovascular:: Denies: Chest pain, Palpitations, Dyspnea on exertion, Orthopnea, PND, Shortness of breath Respiratory: Reports: Cough - occasional, dry. Denies: Hemoptysis, Shortness of Breath, Wheezing Gastrointestinal:: Denies: Abdominal pain, Nausea, Vomiting, Diarrhea, Constipation, Melena, Hematochezia Genitourinary: Denies: Dysuria, Hematuria, 15, Flank pain Musculoskeletal:: Reports: Back pain - during the night 12/04/18. Denies: Myalgia, Arthralgia Skin: Denies: Rash, Skin Changes, Wounds Neurological:: Denies: Headache, Dizziness, Numbness, Tingling, Visual changes, Tinnitus, Hearing loss Psychiatric: Denies: Anxiety, Depression, Homicidal Ideations, Suicidal Ideations Vital Signs Height 5 ft 11 in Weight: 214 lb 15.211 oz Weight in Pounds 215.0 lbs BMI 28.1 Pulse Ox 94 Temperature 98.7 F Pulse Rate 77 Respiratory Rate 16 Blood Pressure 100/60 Blood Pressure Position Semi-Fowlers - Physical Exam General: Alert, Oriented x3, No apparent distress HEENT: Atraumatic, PERRLA, EOMI, Normocephalic, - - wears glasses Oropharynx:: Negative for: Dry mucosa, Ulcerated lesions Neck:: Supple, Trachea midline. Negative for: JVD, bilateral Cardiac:: Regular rate, Regular rhythm, Normal S1, Normal S2. Negative for: Murmur Lungs: Clear to auscultation, Excusion symmetrical. Negative for: Rhonchi, Wheezes Abdomen:: Bowel sounds x 4, Soft, Non-tender, Non-distended. Negative for: Hepatosplenomegaly Extremities:: Negative for: Cyanosis, Edema, Calf tenderness Neurological: Neuro grossly intact Skin:: - - Port right upper chest accessed with gripper covered with DSD. Negative for: Lesions, Rash, Petechiae, Ecchymosis Psychiatric:: Appropriate affect, Euthymic Lymphatics:: Negative for: Cervical lymphadenopathy, Supraclavicular lymphadenopathy, Axillary lymphadenopathy Laboratory Data: Microbiology 12/04/18 12:05 Gram Stain - Final Sputum, Expectorated/Coughed 12/03/18 19:35 Streptococcus pneumoniae Antigen (M - Final Urine, Clean Catch 12/03/18 19:35 Legionella Antigen - Final Urine, Clean Catch Laboratory Tests 12/05/18 12/05/18 12/05/18 Range/Units 08:40 06:17 06:17 WBC 1.7 L (4.4-11.0) K/mm3 RBC 2.64 L (4.6-6.2) M/mm3 Hgb 7.6 L (13.0-16.5) g/dl Hct 23.0 L (40-54) % MCV 87.1 (80-94) fL MCH 28.8 (27.0-32.0) pg MCHC 33.0 (32-36) g/gl RDW 13.3 (11.6-14.6) % RDW Differential 42.7 (35.1-43.9) fl Plt Count 48 L* (150-450) K/mm3 MPV 10.0 (6.2-12.0) fl Immature Gran % (Auto) (0.0-0.9) % Neut % (Auto) Not Reportable (47-70) % Lymph % (Auto) (19-41) % [place] % (Auto) (0-10) % Eos % (Auto) (0-5) % Baso % (Auto) (0-1) % Absolute Neuts (auto) 0.7 L (2.0-7.7) X10^3/uL Absolute Lymphs (auto) 0.68 L (0.83-4.51) X10^3/ul Total Counted 100 Neutrophils % (Manual) 43 L (47-70) % Lymphocytes % (Manual) 40 (19-41) % Monocytes % (Manual) 16 H (0-10) % Eosinophils % (Manual) 1 (0-5) % Differential Comment Diff Path Review May foll Platelet Estimate MKD DEC (ADEQ) RBC Morphology NORM C+C (NORM C&C) NORMAL Anisocytosis Macrocytosis Sodium 141 (136-145) mmol/L Potassium 3.8 (3.5-5.1) mmol/L Chloride 107 (98-107) mmol/L Carbon Dioxide 28.0 (21.0-32.0) mmol/L Anion Gap 6 (5-15) BUN 17 (7-18) mg/dL Creatinine 1.01 (0.70-1.30) mg/dL Estim Creat Clear Calc 70.41 ml/min Est GFR (MDRD) Af Amer 93 (>60) mL/min Est GFR (MDRD) Non-Af 77 (>60) mL/min BUN/Creatinine Ratio 16.8 (10-20) RATIO Glucose 107 H (74-106) mg/dL Calcium 8.1 L (8.5-10.1) mg/dL Vancomycin Trough 14.7 (5.0-15.0) ug/mL Blood Type A1 Antigen Typing Rho(D) Type Antibody Screen Crossmatch 12/04/18 12/03/18 Range/Units 17:00 20:10 WBC 1.6 L (4.4-11.0) K/mm3 RBC 2.52 L (4.6-6.2) M/mm3 Hgb 7.4 L (13.0-16.5) g/dl Hct 22.1 L (40-54) % MCV 87.7 (80-94) fL MCH 29.4 (27.0-32.0) pg MCHC 33.5 (32-36) g/gl RDW 13.2 (11.6-14.6) % RDW Differential 42.8 (35.1-43.9) fl Plt Count 52 L (150-450) K/mm3 MPV 9.1 (6.2-12.0) fl Immature Gran % (Auto) 0.600 (0.0-0.9) % Neut % (Auto) 40.0 L (47-70) % Lymph % (Auto) 43.8 H (19-41) % [place] % (Auto) 15.0 H (0-10) % Eos % (Auto) 0.6 (0-5) % Baso % (Auto) 0.0 (0-1) % Absolute Neuts (auto) 0.6 L (2.0-7.7) X10^3/uL Absolute Lymphs (auto) 0.70 L (0.83-4.51) X10^3/ul Total Counted Not Reportable Neutrophils % (Manual) (47-70) % Lymphocytes % (Manual) (19-41) % Monocytes % (Manual) (0-10) % Eosinophils % (Manual) (0-5) % Differential Comment SEE COMMENT Diff Path Review Platelet Estimate MOD DEC (ADEQ) RBC Morphology (NORM C&C) NORMAL Anisocytosis RARE Macrocytosis RARE Sodium (136-145) mmol/L Potassium (3.5-5.1) mmol/L Chloride (98-107) mmol/L Carbon Dioxide (21.0-32.0) mmol/L Anion Gap (5-15) BUN (7-18) mg/dL Creatinine (0.70-1.30) mg/dL Estim Creat Clear Calc ml/min Est GFR (MDRD) Af Amer (>60) mL/min Est GFR (MDRD) Non-Af (>60) mL/min BUN/Creatinine Ratio (10-20) RATIO Glucose (74-106) mg/dL Calcium (8.5-10.1) mg/dL Vancomycin Trough (5.0-15.0) ug/mL Blood Type Cancelled A1 Antigen Typing Cancelled Rho(D) Type Cancelled Antibody Screen NEGATIVE Crossmatch See Detail Diagnostic Data: Diagnostic Data Chest X-Ray 12/03/18 15:35 IMPRESSION: Cardiomegaly with low volume inspiration. Patchy opacity in the left midlung zone compatible with early/developing pneumonia. Electronically Signed: Ezio Rincon MD at 15:54 EDT , Service support , Assessment and Plan 1. Right Non-small Cell lung cancer, squamous cell type, stage IIIA( cT1b cN2 M0)- Began carboplatin/gemcitabine on 11/17/18, day 8 gemcitabine administered on 11/24/18. Tolerated well with the exception of myelosuppression. 2. Pancytopenia- As evidenced by platelets 48,000 (up from 11,000 12/03/18 subsequent to 5 pk platelets), Hgb 7.6 and ANC now 0.7. Patient did not receive prophylaxis with G CSF, orders placed for Granix 300 mcg x1 (second dose). Today is day 19 of cycle 1 Carboplatin is notorious for causing thrombocytopenia and often later in the cycle (IBETH at 21 days). Transfuse in the event platelets <20,000 and PRBCs for Hgb <7 or <8 and he becomes symptomatic. (He is asymptomatic at the present time). 3. Neutropenic fever- r/t ROBERT infiltrate. On vancomycin and meropenem. Blood cultures are still pending. 4. History of limited stage small cell lung cancer- s/p 4 cycles of cisplatin/etoposide and radiation completed 06/2016. Patient was in agreement with the aforementioned plan. Will continue to follow. Moon Mo, MSN, [employer], AOCNP Medications: Medications Added to Medication List This Visit Category Date Time Status Senna [Senokot] Med 12/06/18 10:00 Active 2 tablet PO DAILY Primary Care Provider: Rogelio Green Referring Provider: Elina Berrios MD
[2018-12-05] MEDS: Senna Tablet 2 TABLET PO (14:50)
[2018-12-05] MEDS: TBO-FILGRASTIM 300 MCG/0.5 ML ML SC (14:50)
[2018-12-05 15:16] LABS: Pathologist Review Reviewed
[2018-12-05 15:23] LABS: Pathologist Review Reviewed
[2018-12-05 15:29] LABS: Pathologist Review Reviewed
[2018-12-05] MEDS: Acetaminophen 325 MG Tablet 650 MG PO (19:29)
[2018-12-05] MEDS: Metoprolol Tartrate 50 MG Tablet PO (21:18)
[2018-12-05] MEDS: Atorvastatin Calcium 10 MG Tablet PO (21:19)
[2018-12-06 04:30] VITALS: PULSE 71
[2018-12-06 05:17] VITALS: BP 100/68; PULSE 72; RESP 17; TEMP 36.6; O2SAT 93
[2018-12-06 07:18] VITALS: O2SAT 93
[2018-12-06] MEDS: 0.9% NaCl Peripheral Flush Adult/Peds IV ×3 (09:35→12:30)
[2018-12-06 09:48] LABS: Absolute Lymphocyte Count 0.76 X10^3/ul (0.83-4.51); Absolute Neutrophil Count 1.2 X10^3/uL (2.0-7.7); Basophil# 0.02 X10^3/uL; Basophil% 0.6 % (0-1); Eosinophil# 0.07 X10^3/uL; Eosinophils% 2.2 % (0-5); Hematocrit 24.4 % (40-54); Hemoglobin 8.1 g/dl (13.0-16.5); Lymphocyte # 0.76 X10^3/ul (4.0); Lymphocyte % 24.3 % (19-41); Mean Corp Hgb Conc 33.2 g/gl (32-36); Mean Corpuscular Hgb 29.1 pg (27.0-32.0); Mean Corpuscular Volume 87.8 fL (80-94); Mean Platelet Vol. 10.1 fl (6.2-12.0); Monocyte% 35.1 % (0-10); Neutrophil # 1.16 X10^3/uL (2.7-7.7); Neutrophil % 37.2 % (47-70); Platelet Count 79 K/mm3 (150-450); RBC Distribution Width CV 13.5 % (11.6-14.6); RBC Distribution Width SD 43.4 fl (35.1-43.9); Red Blood Count 2.78 M/mm3 (4.6-6.2); White Blood Count 3.1 K/mm3 (4.4-11.0)
[2018-12-06 09:49] LABS: Absolute Nucleated RBC Count 0.11 10^3/uL (0-5); Differential Indicated SCAN CRITERIA MET; NRBC Flagged by Analyzer 3.4 % (0-5); POSITIVE COUNT NO; POSITIVE DIFFERENTIAL NO; POSITIVE MORPHOLOGY YES
[2018-12-06 10:02] VITALS: BP 119/59; PULSE 76; RESP 20; TEMP 36.6; O2SAT 96
--- NOTE | 2018-12-06 10:02 | PCM.DC ---
- Discharge Diagnoses Current Active Problems: Current Active and Chronic Problems (Last Updated 12/04/18 @ 14:08 by Cesar Cash DO) Gram-negative pneumonia (Acute) Pancytopenia (Acute) Neutropenic fever (Acute) You will use the following diet at home:: No restrictions Discharge Activity: Return to Normal Activity Allergies/Adverse Reactions: Allergies No Known Allergies Allergy (Verified 11/24/18 09:42) Medications to take at Discharge Multivit-Min/FA/Lycopen/Lutein [Centrum Silver Tablet] 1 ea PO DAILY 10/14/16 Ranitidine HCl [Acid Dumb Waiter Operator] 150 mg PO BID 10/14/16 aspirin 81 mg tablet,delayed release 81 mg PO QDAY 12/19/17 ascorbic acid (vitamin C) 500 mg capsule 500 mg PO QDAY cap 12/20/17 albuterol sulfate HFA 90 mcg/actuation aerosol inhaler 1 - 2 puff INHALATION Q4H PRN PRN #1 device 02/21/18 cholecalciferol (vitamin D3) 5,000 unit capsule 5,000 unit PO DAILY 06/21/18 nitroglycerin 0.4 mg sublingual tablet 0.4 mg SUBLINGUAL PRN PRN #25 tab 06/21/18 simvastatin 20 mg tablet 20 mg PO QHS 90 Days #90 tab 06/21/18 clopidogrel 75 mg tablet 75 mg PO DAILY #90 tab 10/04/18 Metoprolol Tartrate [Lopressor (beta darius)] 50 mg PO BID 10/07/18 Amiodarone HCl [Cordarone] 100 mg PO DAILY 11/14/18 Amoxicillin/Potassium Clav [Augmentin 875-125 Tablet] 1 each PO BID #14 tablet 12/06/18 Lactobacillus Acidophilus [Acidophilus] 1 tablet PO DAILY #30 tablet 12/06/18 The following prescriptions were given: Amoxicillin/Potassium Clav [Augmentin 875-125 Tablet] 1 each PO BID #14 tablet Lactobacillus Acidophilus [Acidophilus] 1 tablet PO DAILY #30 tablet Primary Care Physician: Rogelio Green DO [Primary Care Provider] - Please follow up with your Primary Care Physician in: in 1-2 weeks Test Results: Test results from this visit will be discussed in further detail at your follow-up appointment, if applicable. Proposed Discharge Date: 12/06/18
--- NOTE | 2018-12-06 10:06 | DS.PCM_ITS ---
Discharge Date and Diagnosis - Problem List Patient Problems: Active and Suspected Problems (Last Updated 12/04/18 @ 14:08 by Cesar Cash DO) Gram-negative pneumonia (Acute) Pancytopenia (Acute) Neutropenic fever (Acute) Date of Admission: 12/03/18 Date of Discharge: 12/06/18 - Primary Discharge Diagnosis Active and Suspected Problems (Last Updated 12/04/18 @ 14:08 by Cesar Cash DO) Gram-negative pneumonia (Acute) Pancytopenia (Acute) Neutropenic fever (Acute) - Secondary Discharge Diagnosis Chronic Problems (Last Updated 12/04/18 @ 14:08 by Cesar Cash DO) Right upper lobe pulmonary nodule (Chronic) Non-small cell carcinoma of left lung, stage 3 (Chronic) Paroxysmal atrial fibrillation (Chronic) Atherosclerotic heart disease of [place] coronary artery without angina pectoris (Chronic) PTCA/stent of the mid LAD, prox 1st diag, prox RCA 08/13/10; PTCA/BETO of the Ostial/Prox 1st diag 12/15/16 Dyspnea (Chronic) Fatigue (Chronic) Wheezing (Chronic) Long-term use of high-risk medication (Chronic) Primary small cell malignant neoplasm of lung, stage 3 (Chronic) Acute DVT (deep venous thrombosis) (Chronic) Nocturnal hypoxia (Chronic) Radiation esophagitis (Chronic) HLD (hyperlipidemia) (Chronic) History of coronary artery stent placement (Chronic) PTCA/stent of the mid LAD, prox 1st diag, prox RCA 08/13/10; PTCA/BETO of the Ostial/Prox 1st diag 12/15/16 Obesity (BMI 30-39.9) (Chronic) Smoking addiction (Chronic) COPD (chronic obstructive pulmonary disease) (Chronic) HTN (hypertension) (Chronic) Hospital Course and Treatment Clinical Impression(s) from Imaging Studies Chest X-Ray 12/03/18 15:35 IMPRESSION: Cardiomegaly with low volume inspiration. Patchy opacity in the left midlung zone compatible with early/developing pneumonia. Electronically Signed: Ezio Rincon MD at 15:54 EDT , Service support , Operations: None Summary of Care Provided: Patient is a 73-year-old gentleman with diagnosis of non-small cell lung CA currently undergoing chemo and radiation therapy admitted with fever. Patient was also found to be neutropenic. Chest x-ray obtained on admission demonstrated features consistent with pneumonia admitted to the regular nursing floor for further management 1. Acute febrile neutropenia secondary to left midlung zone early/developing pneumonia. Patient was initially managed with precautions as well as broad- spectrum antibiotic therapy with vancomycin and meropenem. Vancomycin discontinued on 11/04/2018. Blood cultures have so far remained negative to date.. Patient was discharged home on Augmentin after 3 days of hospitalization with instructions for patient to follow-up with PCP as well as his oncologist subsequent care 2. Pancytopenia (secondary to recent chemotherapy) with neutropenia, anemia as well as thrombocytopenia status post platelet transfusion 3. Non-small cell lung CA IIIA currently undergoing chemo and radiation therapy 4. Essential hypertension-blood pressure controlled, home medications continued with dose adjustment as needed 5. Dyslipidemia-patient is on statin therapy, continued at home dose 6. COPD; stable 7. Morbid obesity with BMI of 30 7. DVT prophylaxis encourage early ambulation Patient Problems: Active and Suspected Problems (Last Updated 12/04/18 @ 14:08 by Cesar Cash DO) Gram-negative pneumonia (Acute) Pancytopenia (Acute) Neutropenic fever (Acute) Objective: GENERAL: cooperative HEENT: Atraumatic; EYES; Anicteric, Normal Conjunctiva NECK; supple, normal thyroid, RESPIRATORY: Diminished to auscultation CARDIOVASCULAR: Regular S1 S2, GI: soft, non-tender, normoactive bowel sounds, : No Renal angle tenderness; EXTREMITIES: No edema, no clubbing, no cyanosis. NEURO: Awake; no lateralizing signs. SKIN: Bruises both upper extremities PSYCH; Normal affect - Physical Exam Vital Signs Temp Pulse Resp BP Pulse Ox 97.9 F 72 17 100/68 93 12/06/18 05:17 12/06/18 05:17 12/06/18 05:17 12/06/18 05:17 12/06/18 07:18 Oxygen Flow Rate (L/min) 2 Oxygen Delivery Method Room Air Weight: 101.3 kg Body Mass Index (BMI) 28.5 Intake and Output for Last 24 Hours 12/04/18 12/05/18 12/06/18 23:59 23:59 23:59 Intake Total 1593 / 1593 1849 / 1849 538 / 538 Output Total 800 / 800 625 / 625 400 / 400 Balance 793 / 793 1224 / 1224 138 / 138 Microbiology Past 72 Hours 12/04/18 12:05 Gram Stain - Final Sputum, Expectorated/Coughed 12/03/18 19:35 Streptococcus pneumoniae Antigen (M - Final Urine, Clean Catch 12/03/18 19:35 Legionella Antigen - Final Urine, Clean Catch Laboratory Tests Past 24 Hrs 12/03/18 12/04/18 12/05/18 16:10 12:25 06:17 WBC RBC Hgb Hct MCV MCH MCHC RDW RDW Differential Plt Count MPV Immature Gran % (Auto) Neut % (Auto) Lymph % (Auto) [place] % (Auto) Eos % (Auto) Baso % (Auto) Absolute Neuts (auto) Absolute Lymphs (auto) Total Counted Nucleated RBC % Diff Path Review Reviewed Reviewed Reviewed Absolute Retic 12/06/18 09:30 WBC 3.1 L RBC 2.78 L Hgb 8.1 L Hct 24.4 L MCV 87.8 MCH 29.1 MCHC 33.2 RDW 13.5 RDW Differential 43.4 Plt Count 79 L MPV 10.1 Immature Gran % (Auto) 0.600 Neut % (Auto) 37.2 L Lymph % (Auto) 24.3 [place] % (Auto) 35.1 H Eos % (Auto) 2.2 Baso % (Auto) 0.6 Absolute Neuts (auto) 1.2 L Absolute Lymphs (auto) 0.76 L Total Counted Pending Nucleated RBC % Pending Diff Path Review Absolute Retic Pending Discharge Diet: No Restrictions Discharge Activity: Return to Normal Activity Home Medications: Medications to take at Discharge Multivit-Min/FA/Lycopen/Lutein [Centrum Silver Tablet] 1 ea PO DAILY 10/14/16 Ranitidine HCl [Acid Oil Program Compliance Specialist] 150 mg PO BID 10/14/16 aspirin 81 mg tablet,delayed release 81 mg PO QDAY 12/19/17 ascorbic acid (vitamin C) 500 mg capsule 500 mg PO QDAY cap 12/20/17 albuterol sulfate HFA 90 mcg/actuation aerosol inhaler 1 - 2 puff INHALATION Q4H PRN PRN #1 device 02/21/18 cholecalciferol (vitamin D3) 5,000 unit capsule 5,000 unit PO DAILY 06/21/18 nitroglycerin 0.4 mg sublingual tablet 0.4 mg SUBLINGUAL PRN PRN #25 tab 06/21/18 simvastatin 20 mg tablet 20 mg PO QHS 90 Days #90 tab 06/21/18 clopidogrel 75 mg tablet 75 mg PO DAILY #90 tab 10/04/18 Metoprolol Tartrate [Lopressor (beta darius)] 50 mg PO BID 10/07/18 Amiodarone HCl [Cordarone] 100 mg PO DAILY 11/14/18 Amoxicillin/Potassium Clav [Augmentin 875-125 Tablet] 1 each PO BID #14 tablet 12/06/18 Lactobacillus Acidophilus [Acidophilus] 1 tablet PO DAILY #30 tablet 12/06/18 Following Prescrptions Were Given to Patient: Amoxicillin/Potassium Clav [Augmentin 875-125 Tablet] 1 each PO BID #14 tablet Lactobacillus Acidophilus [Acidophilus] 1 tablet PO DAILY #30 tablet Primary Care Physician: Rogelio Green DO [Primary Care Provider] - Please follow up with your Primary Care Physician in: in 1-2 weeks Disposition: Home Minutes spent on discharge:: 35 Patient Condition:: Stable Medical Necessity - Tobacco Use Smoking Status: Former smoker Tobacco Use: Non-smoker Meaningful Use Info Meaningful Use Diagnoses (Choose all that apply): None applicable Code Visit Inpatient E&M: 62103 Disch Hosp
[2018-12-06 10:15] LABS: Hypochromasia 1+; Platelet Estimate MOD DEC (ADEQ); Polychromasia RARE
[2018-12-06 10:18] VITALS: PULSE 76
[2018-12-06] MEDS: Amiodarone 200 MG Tablet 100 MG PO (10:18)
[2018-12-06] MEDS: Multivitamins,Ther W-Minerals Tablet 1 TABLET PO (10:18)
[2018-12-06] MEDS: Ascorbic Acid 500 MG Tablet PO (10:18)
[2018-12-06] MEDS: Senna Tablet 2 TABLET PO (10:18)
[2018-12-06] MEDS: Metoprolol Tartrate 50 MG Tablet PO (10:18)
--- NOTE | 2018-12-06 12:48 | NURSING ---
This RN entered pt's room to find sitting at bedside very irritated. She states that she only has an hour for lunch and must leave [facility]. Notified that this RN was unaware that she was here. discharge instructions given and this RN called pharmacy to request heparin be added to accudose DE[facility]- same completed. Port flushed and locked with heparin per protocol. Madison, RN states that port was flushing sluggishly t/o weekend and same continues. Madison had educated on reasons why we could deaccess pt- pt refused and states he wants it left in place. Educated on importance of keeping site/ dressing dry and intact and f/u with within week. Notified by family that pt has appt with oncology on and will see him then. This Rn obtained wheelchair and expedited d/c per 's concern of returning to work promptly. When pt was assisted into his vehicle- he notified he left cell phone in room- this Rn obtained cell phone and returned to pt in waiting vehicle.
--- NOTE | 2018-12-07 13:40 | CASEMGMT ---
NEREYDA HUBER Discharge Follow-Up Phone Call. Lace: 11 Strata: 3 Discharge Date: 12/06/18 Adm Dx: Pancytopenia. Attempted discharge follow-up phone call. No answer. Message left for pt to return call to [facility] NEREYDA Valente, if he has any questions/concerns re: discharge instructions, medications, appts, etc. Phone number provided. Maricruz WHEELER RN, CM
[2018-12-07 14:46] LABS: Pathologist Review Reviewed
== END 2018-12-06 12:35 | disposition home or self-care (01) | DRG 190 ==
LOC: ED 15:39 → MS3 18:20
PROVIDERS: Admitting Provider Internal Medicine; Emergency Provider Emergency Medicine; Family Provider Family Medicine; PCP Family Medicine; Referring Provider Internal Medicine; Visit Provider Internal Medicine
DX: J44.0 Chronic obstructive pulmonary disease with (acute) lower respiratory infection (principal); J15.6 Pneumonia due to other Gram-negative bacteria; D61.810 Antineoplastic chemotherapy induced pancytopenia; C34.92 Malignant neoplasm of unspecified part of left bronchus or lung; R50.81 Fever presenting with conditions classified elsewhere; I48.0 Paroxysmal atrial fibrillation; I25.10 Atherosclerotic heart disease of native coronary artery without angina pectoris; T45.1X5A Adverse effect of antineoplastic and immunosuppressive drugs, initial encounter; E78.5 Hyperlipidemia, unspecified; Z86.711 Personal history of pulmonary embolism; Z86.718 Personal history of other venous thrombosis and embolism; Z71.3 Dietary counseling and surveillance; K21.9 Gastro-esophageal reflux disease without esophagitis; Z87.891 Personal history of nicotine dependence; Z92.3 Personal history of irradiation; E66.01 Morbid (severe) obesity due to excess calories; Z68.30 Body mass index [BMI] 30.0-30.9, adult; I10 Essential (primary) hypertension
CPT/HCPCS: 36591; 71045; 80048; 80202; 81001; 83605; 84484; 85025; 86850; 86900; 86920; 86922; 86965; 87040; 87070; 87106; 87205; 87449; 93005; 94667; 94668; 97162; 97165; 97530; 99285; J2185; J7030; J7040; P9037; A4216; J1447

== ENCOUNTER → 2018-12-15 | Outpatient (CLI) | payer OTHER, MEDICARE, SELFPAY ==
[2016-12-24 11:34] VITALS: BMI 28.1
[2018-12-15 14:59] VITALS: BMI 29.4
[2018-12-15 18:19] LABS: Thyroid Stim Hormone (TSH) 1.39 uIU/mL (0.358-3.74)
== END | disposition home or self-care (01) ==
PROVIDERS: Family Provider Family Medicine; PCP Family Medicine; Referring Provider Physician Assistant Medical; Visit Provider Physician Assistant Medical
DX: E05.90 Thyrotoxicosis, unspecified without thyrotoxic crisis or storm (principal)
CPT/HCPCS: 36415; 84439; 84443

== ENCOUNTER → 2019-01-02 | Outpatient (CLI) | payer OTHER, MEDICARE, SELFPAY ==
[2016-12-24 11:34] VITALS: BMI 28.1
[2018-12-15 08:07] VITALS: BMI 29.0
[2018-12-22 08:12] VITALS: BMI 28.6
--- NOTE | 2019-01-02 06:42 | CT_ITS ---
STUDY: CT CHEST WITH CONTRAST REASON FOR EXAM: Male, 73 years old. Monitoring response to chemotherapy. History of lung cancer with radiation and chemotherapy RADIATION DOSAGE (If Supplied By Facility): CTDIvol = ( 12.96 ) mGy, DLP = ( 582.89 ) mGycm TECHNIQUE: Transaxial imaging was performed following intravenous administration of 100ml IV Isovue 300. Individualized dose optimization techniques were used for this CT. COMPARISON: Previous study of 10/03/2018 FINDINGS: There is a right-sided MediPort with catheter tip at the level of the atriocaval junction. There is a spiculated nodule of the posterior right upper lobe measuring 1.4 x 1.1 x 1.2 cm. There is right kashif and infrahilar scarring with bronchiectasis of the medial superior segment of the right lower lobe, similar to the previous study. There is mild scarring of the medial right upper lobe. There is calcific plaquing of the left pleura. The heart size is within normal limits. There is no pericardial effusion. Coronary arterial calcifications are present. There is a right paratracheal node measuring 1.7 cm in short axis, stable in the interval. Normal hilar regions. Normal enhanced pulmonary arteries. There are calcified plaques of the thoracic aorta. There is diffuse endplate spondylosis of the visualized thoracolumbar spine. There is no evidence of osseous metastatic disease. There is an upper pole cyst of the right kidney. There is a 2.2 cm probable cyst of the spleen. CT/Chest WITH Contrast IMPRESSION: 1. Spiculated nodule of the posterior right upper lobe measuring 1.4 x 1.1 x 1.2 cm, with no significant interval change. 2. Right perihilar and infrahilar scarring with bronchiectasis of the medial superior segment of the right lower lobe, stable in the interval. 3. Mild scarring of the medial right upper lobe consistent with post radiation change. 4. Calcific plaquing of the left pleura. 5. There is a right paratracheal node measuring 1.7 cm in short axis, stable in the interval. Electronically Signed: Solomon Locke MD at 17:30 EDT , Service support ,
== END | disposition home or self-care (01) ==
PROVIDERS: Family Provider Family Medicine; PCP Family Medicine; Referring Provider Internal Medicine Medical Oncology; Visit Provider Internal Medicine Medical Oncology
DX: C34.32 Malignant neoplasm of lower lobe, left bronchus or lung (principal)
CPT/HCPCS: 71260; Q9967; A4216

== ENCOUNTER → 2019-02-03 | Outpatient (CLI) | payer OTHER, MEDICARE, SELFPAY ==
[2016-12-24 11:34] VITALS: BMI 28.1
[2019-02-01 08:35] VITALS: BMI 30.1
--- NOTE | 2019-02-03 07:48 | MRI_ITS ---
STUDY: MRI BRAIN WITH AND WITHOUT CONTRAST REASON FOR EXAM: Male, 73 years old. The patient presents with a history of blackouts since radiation therapy 2 years prior. TECHNIQUE: Standardized multiplanar fat and water weighted pulse sequences were obtained. 20 IV Dotarem was administered for the contrast portion of the examination. COMPARISON: MRI BRAIN WITH AND WITHOUT CONTRAST-December 30, 2016 FINDINGS: There is mild cerebral atrophy with widening of the extra-axial spaces and ventricular dilatation. There is occurred a progression of the confluent white matter hyperintensities of the centrum semiovale of the bilateral cerebral hemispheres, which has now progressed in extent and intensity and is now extending to the cortical thompson-white matter junctions, consistent with the late changes of microangiopathy from radiation therapy or chemotherapy. There is no evidence for recent intracranial ischemia or other cause of cytotoxic edema on diffusion weighted imaging (DWI). Normal T2* images of the brain without demonstrated susceptibility artifact. There is no demonstrated hemosiderin stain. Normal bilateral basal ganglia. Normal thalami. There is no extra-axial fluid accumulation. Normal flow voids within the major intracranial circulation suggesting patency by spin echo criteria. Normal venous enhancement. There is no enhancing intra-axial or extra-axial abnormality. Normal sella turcica, pituitary gland, infundibular stalk, optic chiasm and hypothalamus. Normal tectal plate and pineal gland. Normal midbrain, hadley and medulla. Normal cerebellum. Normal basal cisterns. Normal bilateral temporal bones. Normal bilateral internal auditory canals. No demonstrated orbital abnormality, within the constraints of a routine brain study. There is re-demonstration of a stable polyp within the left nasal airway. There is a retention cyst involving the lateral floor of the left maxillary sinus. Normal calvarium and skull base. Normal visualized soft tissue structures. Normal visualized upper cervical spine. MRI/Brain W/WO Contrast IMPRESSION: 1. Progressive white matter microangiopathic changes which have worsened as compared to the prior examination of December 30, 2016 with confluent hyperintensities extending to the cortical thompson-white matter junctions. The findings are consistent with late changes from either radiation or chemotherapy. 2. Otherwise normal brain. 3. Stable polyp within the left nasal passage. 4. Retention cyst left maxillary sinus. Electronically Signed: Peña Barker DO at 10:49 EDT Tel , Service support ,
--- NOTE | 2019-02-03 09:43 | NURSING ---
PER Tree STANTON, PT TOLETERATED WELL, GOOD BLOOD RETURN UPON ACCESS
== END | disposition home or self-care (01) ==
LOC: MRI 07:47
PROVIDERS: Family Provider Family Medicine; PCP Family Medicine; Referring Provider Internal Medicine Medical Oncology; Visit Provider Internal Medicine Medical Oncology
DX: R55 Syncope and collapse (principal); C34.92 Malignant neoplasm of unspecified part of left bronchus or lung
CPT/HCPCS: 70553; A9575; A4216

== ENCOUNTER → 2019-02-21 | Outpatient (CLI) | payer OTHER, MEDICARE, SELFPAY ==
[2016-12-24 11:34] VITALS: BMI 28.1
[2019-02-08 10:16] VITALS: BMI 30.9
[2019-02-16 07:52] VITALS: BMI 30.2
--- NOTE | 2019-02-21 06:48 | CT_ITS ---
STUDY: CT ABDOMEN AND PELVIS WITH CONTRAST REASON FOR EXAM: Male, 73 years old. Lung cancer follow-up, assessment for metastatic process RADIATION DOSAGE (If Supplied By Facility): CTDIvol = ( 21.47 ) mGy, DLP = ( 2207.35 ) mGycm TECHNIQUE: Transaxial images were obtained from the dome of the diaphragm to the symphysis pubis without oral contrast. 100 IV/Oral Isovue 300 was administered. Sagittal and coronal images were reconstructed. Individualized dose optimization techniques were used for this CT. COMPARISON: 10/03/18 FINDINGS: Stable pleural plaque, some with nodular configuration, with calcification in the left lower lung. The visualized portions of the heart are within normal limits. Normal liver. Normal gallbladder and extrahepatic biliary system. Cyst measuring 2.2 cm in the spleen also visualized on prior study. Normal pancreas. Normal bilateral adrenal glands. Cyst in the upper pole of right kidney now measures up to 3.3 cm, previously 3.1 cm, with several other smaller cysts on the right.. Staghorn calculus in the left kidney is again noted, unchanged. Normal visualized stomach. Normal small intestine. There are multiple colonic diverticula consistent with diverticulosis. There is non-visualization of the appendix. There is diffuse atherosclerotic calcification of the abdominal aorta, without a demonstrated aneurysm. Normal inferior vena cava. Normal retroperitoneum. Normal urinary bladder. Unremarkable visualized prostate gland. Normal abdominal wall. There are diffuse degenerative changes of the visualized lumbar spine. CT/Abdomen/Pelvis WITH Contrast IMPRESSION: Stable pleural plaque with calcifications, in the lung bases, some with nodular configuration stable since prior. No evidence of metastatic process in the abdomen or pelvis. Stable splenic cysts Stable left staghorn calculus of the kidney. Mild increase in size of the benign cysts in the right kidney up to 3.3 cm, previously 3.1 cm. Electronically Signed: Khurram Ellis MD at 8:08 EDT Tel [phone], Service support ,
--- NOTE | 2019-02-21 06:48 | CT_ITS ---
STUDY: CT CHEST WITH CONTRAST REASON FOR EXAM: Male, 73 years old. Lung cancer follow-up RADIATION DOSAGE (If Supplied By Facility): CTDIvol = ( 21.47 ) mGy, DLP = ( 2207.35 ) mGycm TECHNIQUE: Transaxial imaging was performed following intravenous administration of 100 IV Isovue 300. Individualized dose optimization techniques were used for this CT. COMPARISON: 01/02/2019 FINDINGS: There is a spiculated lesion in the posterior aspect of the right upper lobe, measuring up to 1.3 x 1.4 x 1.2 cm (craniocaudal by AP by transverse), stable since prior study with no significant change in size. Stable extent of likely post radiation change along the medial aspect of right upper lobe. There is also MediPort in place. These are likely due to sequela of prior radiation therapy and also chemotherapy. Stable extent of likely scarring along left lung base laterally with chronic pleural parenchymal change. Stable extent of parenchymal scarring is noted in the right perihilar and infrahilar region. Stable bronchiectasis along the medial segment of the right lower lobe. There is no evidence of new pulmonary lesion or new nodule. No evidence of pleural effusion. Stable pleural plaque with calcifications Normal size of the heart and staple extending of trace amount of pericardial effusion. Stable prominent lymph node in the pretracheal space of the mediastinum with short axis of 1.6 cm stable since prior. Normal hilar regions. Unremarkable enhanced pulmonary arteries. Normal aorta arch and descending thoracic aorta. There are multi-level degenerative changes of the thoracic spine. No aggressive osseous lesion. There is no demonstrated abnormality of the visualized upper abdomen. CT/Chest WITH Contrast IMPRESSION: Stable dimension of the spiculated lesion measuring along the maximal size at 1.3 x 1.4 x 1.2 cm (craniocaudal by AP by transverse), compared to prior study. Stable postradiation changes in the medial aspect of the right upper lobe. Stable scarring along the right perihilar, right infrahilar regions, and also in the left lateral lung. Stable calcified pleural plaque in the left lung base, and with nodular appearance in the right middle lobe Pretracheal lymph node measuring about 1.6 cm along short axis, stable since prior. No new pulmonary lesion or new focus of pulmonary nodule. Electronically Signed: Khurram Ellis MD at 9:01 EDT Tel [phone], Service support ,
== END | disposition home or self-care (01) ==
LOC: CT 06:45
PROVIDERS: Family Provider Family Medicine; PCP Family Medicine; Referring Provider Nurse Practitioner Family; Visit Provider Nurse Practitioner Family
DX: C34.90 Malignant neoplasm of unspecified part of unspecified bronchus or lung (principal)
CPT/HCPCS: 71260; 74177; Q9967; A4216

== ENCOUNTER → 2019-04-11 06:47 | Outpatient (CLI) | payer OTHER, MEDICARE, SELFPAY ==
[2016-12-24 11:34] VITALS: BMI 28.1
[2019-02-22 08:30] VITALS: BMI 29.9
--- NOTE | 2019-04-11 06:51 | CT_ITS ---
STUDY: CT CHEST WITH CONTRAST REASON FOR EXAM: Male, 73 years old. Lung cancer, history of chemotherapy and radiation therapy. RADIATION DOSAGE (If Supplied By Facility): CTDIvol = ( 17.66 ) mGy, DLP = ( 653.35 ) mGycm TECHNIQUE: Transaxial imaging was performed following intravenous administration of IV Isovue 300 100CC. Individualized dose optimization techniques were used for this CT. COMPARISON: 02/21/2019 FINDINGS: Mild emphysematous changes. No change in 1.2 cm thick related nodule in the posterior medial right upper lobe the lungs likely consistent with treated bronchogenic carcinoma or scar. Suspected scarring and hilum the right lung as well. Small right pleural effusion. Calcified pleural plaques on the left which may be related to prior hemothorax or spasticity exposure. Normal heart and pericardium. There is been interval increasing size of the azygos lymphadenopathy from 1.2 x 2.2 cm to 1.8 x 3.0 cm consistent with worsening metastatic lymphadenopathy. There is been a similar increase in size of the precarinal lymphadenopathy from 1.0 x 1.8 cm 1.2 x 2.2 cm. There is been interval development of right hilar lymphadenopathy measuring 1.8 x 2.2 cm worrisome for metastatic lymphadenopathy. Normal enhanced pulmonary arteries. Normal aorta arch and descending thoracic aorta. Normal osseous structures. There is no demonstrated abnormality of the visualized upper abdomen. CT/Chest WITH Contrast IMPRESSION: No change in right upper lobe scar treated bronchogenic carcinoma but interval development of right hilar lymphadenopathy and enlarging mediastinal lymphadenopathy worrisome for worsening metastatic lymphadenopathy. Electronically Signed: David Conteh MD at 11:16 EDT Tel , Service support ,
[2019-04-11 07:01] LABS: CREATININE FINGERSTICK 0.8 mg/dL (0.70-1.30); EGFR FINGERSTICK > 60.0000 mL/min (>60)
== END ==
PROVIDERS: Family Provider Family Medicine; PCP Family Medicine; Referring Provider Internal Medicine Medical Oncology; Visit Provider Internal Medicine Medical Oncology
DX: C34.90 Malignant neoplasm of unspecified part of unspecified bronchus or lung (principal)
CPT/HCPCS: 71260; Q9967

== ENCOUNTER 2019-05-25 07:12 | Inpatient (IN) | payer OTHER, MEDICARE, SELFPAY ==
[2016-12-24 11:34] VITALS: BMI 28.1
[2019-04-20 15:03] VITALS: BMI 29.5
[2019-05-25] VITALS (23 sets, daily range): BP systolic 90–178; BP diastolic 63–86; PULSE 72–128; RESP 16–37; TEMP 36.5–37.1; O2SAT 94–98; BMI 30.4
--- NOTE | 2019-05-25 07:32 | EKG12_ITS ---
Test Reason : DYSPNEA Blood Pressure : / mmHG Vent. Rate : 128 BPM Atrial Rate : 128 BPM P-R Int : 144 ms QRS Dur : 122 ms QT Int : 348 ms P-R-T Axes : 074 -36 158 degrees QTc Int : 508 ms Sinus tachycardia Left axis deviation Inferior infarct , age undetermined Anterior infarct , age undetermined Abnormal ECG Confirmed by CASEY RODRIGUEZ, JIMI ([id number]), offline editor NERY RASHEED ([id number]) on 05/29/2019 9:15:24 AM Referred By: PIPER Confirmed By:SAMUEL PEÑA MD
--- NOTE | 2019-05-25 07:32 | RAD_ITS ---
STUDY: X-RAY CHEST REASON FOR EXAM: Male, 73 years old. Chest pain, shortness of breath and cough. TECHNIQUE: Single AP portable view of the chest. COMPARISON: Comparison is made with prior study dated December 03, 2018. FINDINGS: A right-sided portacatheter is seen with the tip at the junction of the superior vena cava and right atrium. Small right pleural effusion with underlying infiltration and/or atelectasis at the right lung base. Increased markings at the left lung base with blunting of the left costophrenic angle. Normal size heart. Normal mediastinum and tessa. Normal visualized pulmonary arteries. There is atherosclerotic calcification of the aortic arch with tortuosity. Normal visualized thoracic spine. There is degenerative osteoarthritis of the bilateral shoulders. There is no demonstrated abnormality of the visualized soft tissue structures of the upper abdomen. RAD/Chest 1 View (Portable) IMPRESSION: New right pleural effusion with underlying infiltration and/or atelectasis. Increased markings at the left lung base with blunting of the left costophrenic angle. Electronically Signed: Miguel Chacon, at 8:38 EST , Service support ,
--- NOTE | 2019-05-25 07:35 | ED.DCSUM_ITS ---
- ER Visit Summary Date of Service: 05/25/19 Chief Complaint: Cough and shortness of breath History of Present Illness: The patient is a 73 M history of CAD with multiple stents COPD, CVA and has not had chemotherapy for about 6 weeks. Patient for 2 weeks has had a cough he was treated with 7 days of Augmentin really did not make a significant difference. And is becoming more short of breath. Worse supine. No leg swelling or leg pain. No fever. He does have yellowish sputum at times. Physical Examination: Older male initial blood pressure 90/63 temperature 97. Pulse ox 85% on room air hypoxic on 4 L is 95%. He is tachycardic at 120. HEENT exam unremarkable. Neck nontender no JVD no lymphadenopathy. Lungs lungs currently are clear to auscultation bilaterally he just did do an aerosol treatment at home prior to arrival. Currently I do not appreciate any rales, rhonchi or wheezing. He is equal and symmetrical. Heart tachycardic rate about 120 appears to be a sinus tach. Abdomen is soft and nontender. Normal bowel sounds. Remedies moves all 4. Neurovascular intact. Calves are nontender without edema or cords. Neurologically is awake and alert with no focal motor deficits. Test Results: EKG shows sinus tachycardia rate of 128. No signs of dysrhythmia or SC. Right pleural effusion possibly infiltrate chronic COPD changes and effusion on the left much smaller. Initial CBC shows white count 7. Hemoglobin 12. Electrolytes unremarkable normal creatinine gap. Troponin normal. Lactate normal 1.2 BNP 174. EKG sinus tachycardia rate of 128 without SC or ischemia. CTA of the chest shows no PE. Chronic COPD changes. Right lower lobe extensive lung mass with pleural effusion and suspected infiltrate. Emergency Department Course and Treatment: Older male with a shortness of [place] ath, cough, sputum and tachycardia. This may be pneumonia could also be potentially CHF. He will undergo a work-up for both. Including a lactic acid and blood cultures. Most likely will need to be admitted to the hospital. Treatment Plan: Some improvement with the repeat exams. To be treated with aerosols, IV Solu-Medrol and started on IV Rocephin and Zithromax for the pneumonia. I discussed test results with patient and family. Disposition: Admission Impression: Acute dyspnea with hypoxia Acute right lower lobe pneumonia Acute exacerbation COPD Acute right lower lobe effusion History of and current right lower lobe lung cancer This note was generated with [employer] dictation software. It may contain incorrect words, spelling, and punctuation that were not noted in review of the chart prior to signing ED Disposition - Plan for ED Patient:
[2019-05-25 08:05] LABS: Absolute Lymphocyte Count 1.38 X10^3/uL (0.83-4.51); Basophil# 0.04 X10^3/uL; Basophil% 0.6 % (0-1); Eosinophil# 0.11 X10^3/uL; Eosinophils% 1.6 % (0-5); Hematocrit 38.2 % (40-54); Lymphocyte # 1.38 X10^3/ul (4.0); Lymphocyte % 19.5 % (19-41); Mean Corp Hgb Conc 31.4 g/dL (32-36); Mean Corpuscular Hgb 31.4 pg (27.0-32.0); Monocyte# 0.57 X10^3/uL; NRBC Flagged by Analyzer 0 % (0-5); Neutrophil # 4.96 X10^3/uL (2.7-7.7); Neutrophil % 69.9 % (47-70); Platelet Count 145 K/mm3 (150-450); Red Blood Count 3.82 M/mm3 (4.6-6.2); White Blood Count 7.1 K/mm3 (4.4-11.0)
[2019-05-25 08:22] LABS: Anion Gap 3 (5-15); BUN 18 mg/dL (7-18); BUN/Creat Ratio 16.5 RATIO (10-20); Calcium,Total 9.1 mg/dL (8.5-10.1); Chloride 107 mmol/L (98-107); Creatinine, Serum 1.09 mg/dL (0.70-1.30); EST Glomerular Filtration Rate 71 mL/min (>60); Est Glom Filt Rate - Afr Amer 85 mL/min (>60); Estimated Creatinine Clearance 63.25 ml/min; Glucose 122 mg/dL (74-106); Sodium Level 140 mmol/L (136-145)
[2019-05-25 08:32] LABS: BNP,B-Type NATRIURETIC PEPTIDE 174.6 pg/mL (0-100)
--- NOTE | 2019-05-25 08:32 | RAD_ITS ---
STUDY: X-RAY CHEST REASON FOR EXAM: Male, 73 years old. Cuff. TECHNIQUE: Lateral view. COMPARISON: Comparison is made with frontal view done earlier in the morning. FINDINGS: Blunting of both costophrenic angles with fluid in the right major fissure. Normal size heart. Normal mediastinum and tessa. Normal visualized pulmonary arteries. Normal visualized aortic arch and descending thoracic aorta. There are diffuse degenerative changes of the visualized thoracic spine. Normal visualized ribs, clavicles, and shoulders. There is no demonstrated abnormality of the visualized soft tissue structures of the upper abdomen. RAD/Chest 1 View (Portable) IMPRESSION: Bilateral pleural effusions. Electronically Signed: Miguel Chacon, at 9:05 EST , Service support ,
[2019-05-25 08:36] LABS: Lactic Acid 1.2 mmol/L (0.4-2.0)
--- NOTE | 2019-05-25 09:12 | CT_ITS ---
STUDY: CTA CHEST REASON FOR EXAM: Male, 73 years old. History of lung cancer. Right pleural effusion. RADIATION DOSAGE (If Supplied By Facility): CTDIvol = ( 14.76 ) mGy, DLP = ( 534.38 ) mGycm TECHNIQUE: The examination was performed with the intravenous administration of IV Isovue 370 100. Post-processing of the angiographic images was performed, with multiplanar reformation and 3D reconstruction. Individualized dose optimization techniques were used for this CT. COMPARISON: Comparison is made with prior study dated October 07, 2018. FINDINGS: Normal enhancement of the main pulmonary artery and right and left pulmonary arteries. Normal enhancement of the bilateral peripheral pulmonary arteries. There is no demonstrated pulmonary embolism. Normal thoracic aorta and visualized great vessels. There is no demonstrated aortic dissection. Normal heart and pericardium. There is evidence of a multiple lymph nodes in the mediastinum. The largest is in the right pretracheal area. This is necrotic and measures 3.9 cm x 2.2 cm. There is a 4.9 cm x 6.5 cm x 3.2 cm mass in the right hilum. This causes volume loss in the right lower lobe as well as a right pleural effusion. There is evidence of a bronchiectasis and a 3.3 cm x 2.4 cm nodular density in the posteromedial aspect of the right upper lobe. This may represent post radiation fibrosis. Right pleural effusion. Pleural thickening on the left side. Normal chest wall structures. There are degenerative changes of thoracic spine. Increased kyphosis. There is a 1.9 cm x 1.7 cm probably cystic nodule in the posterior aspect of the spleen inferiorly. CT/CTA Chest W/WO Contrast IMPRESSION: Large right hilar mass with right pleural effusion and infiltration in the right lower lobe. 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 Mediastinal lymphadenopathy. Pleural thickening on the left side with evidence of plaque calcification. Cystic nodule in the spleen. Electronically Signed: Miguel Chacon, at 10:29 EST , Service support ,
--- NOTE | 2019-05-25 10:47 | HP.PCM_ITS ---
Problem List (1) Community-acquired pneumonia Status: Acute (2) Acute and chronic respiratory failure with hypoxia Status: Acute (3) Chemotherapy management, encounter for Status: Inactive (4) Thrombocytopenia Status: Chronic (5) Anemia Status: Chronic Qualifiers: Anemia type: unspecified type Qualified Code(s): D64.9 - Anemia, unspecified (6) Gram-negative pneumonia Status: Chronic (7) Pancytopenia Status: Chronic (8) Neutropenic fever Status: Chronic (9) Right upper lobe pulmonary nodule Status: Chronic (10) Chest pain at rest Status: Acute (11) Non-small cell carcinoma of left lung, stage 3 Status: Chronic (12) Paroxysmal atrial fibrillation Status: Chronic (13) Atherosclerotic heart disease of [place] coronary artery without angina pectoris Status: Chronic Qualifiers: [place] vs. transplanted heart: [place] heart Qualified Code(s): I25.10 - Atherosclerotic heart disease of [place] coronary artery without angina pectoris Comment: PTCA/stent of the mid LAD, prox 1st diag, prox RCA 08/13/10; PTCA/BETO of the Ostial/Prox 1st diag 12/15/16 (14) Dyspnea Status: Chronic (15) Fatigue Status: Chronic (16) Wheezing Status: Chronic (17) Long-term use of high-risk medication Status: Chronic (18) Primary small cell malignant neoplasm of lung, stage 3 Status: Chronic (19) Acute DVT (deep venous thrombosis) Status: Chronic (20) Nocturnal hypoxia Status: Chronic (21) Radiation esophagitis Status: Chronic (22) HLD (hyperlipidemia) Status: Chronic Qualifiers: Hyperlipidemia type: unspecified Qualified Code(s): E78.5 - Hyperlipidemia, unspecified (23) Small cell lung cancer Status: Chronic (24) History of coronary artery stent placement Status: Chronic Comment: PTCA/stent of the mid LAD, prox 1st diag, prox RCA 08/13/10; PTCA/BETO of the Ostial/Prox 1st diag 12/15/16 (25) Obesity (BMI 30-39.9) Status: Chronic (26) Smoking addiction Status: Chronic (27) COPD (chronic obstructive pulmonary disease) Status: Chronic (28) HTN (hypertension) Status: Chronic Qualifiers: Hypertension type: essential hypertension Qualified Code(s): I10 - Essential (primary) hypertension History of Present Illness Date of Admission: 05/25/19 Chief Complaint: Shortness of breath, cough and hemoptysis The patient is a 73 year old M with history of non-small cell lung cancer, hilar mass, last chemo about 6 weeks ago came to ER with 2 weeks of progressive worsening of cough with sputum, shortness of breath and hypoxia. Patient took amoxicillin for 7 days by PCP and still did not get better. Patient also had a small amount of hemoptysis before coming to ER. In ED, heart rate is in 120s, blood pressure 90/63, respiratory rate 20 and pulse ox 96% on 4 L oxygen nasal cannula. [] Patient has normal white count, mild anemia H&H 12/38.2, mild thrombocytopenia, 1 45,000. Lactic acid normal. BUN/creatinine normal. BNP 174. Patient had chest x-ray which shows new right pleural effusion with underlying infiltration and atelectasis. Subsequently had chest CTA which shows large right hilar mass with right pleural effusion and infiltration and right lower lobe. Other chronic changes of focus of bronchiectasis, postradiation fibrosis and right upper lobe mediastinal lymphadenopathy pleural thickening on left side with evidence of plaque calcification. Patient follows Dr. Taylor. He had complete PFT in February 2018 which showed moderate mixed ventilatory defect with symmetric reduction in DLCO suboptimal bronchodilator response. It seems he canceled last visit 10/18/2018. In ED, he was given bronchodilator DuoNeb, ceftriaxone and Zithromax. He is further admitted to PCU stepdown. Past Medical History Past Medical History (Chronic Problems): Chronic Problems (Last Reviewed 04/20/19 @ 15:02 by Cheri Vo) Thrombocytopenia (Chronic) Anemia (Chronic) Gram-negative pneumonia (Chronic) Pancytopenia (Chronic) Neutropenic fever (Chronic) Right upper lobe pulmonary nodule (Chronic) Non-small cell carcinoma of left lung, stage 3 (Chronic) Paroxysmal atrial fibrillation (Chronic) Atherosclerotic heart disease of [place] coronary artery without angina pectoris (Chronic) PTCA/stent of the mid LAD, prox 1st diag, prox RCA 08/13/10; PTCA/BETO of the Ostial/Prox 1st diag 12/15/16 Dyspnea (Chronic) Fatigue (Chronic) Wheezing (Chronic) Long-term use of high-risk medication (Chronic) Primary small cell malignant neoplasm of lung, stage 3 (Chronic) Acute DVT (deep venous thrombosis) (Chronic) Nocturnal hypoxia (Chronic) Radiation esophagitis (Chronic) HLD (hyperlipidemia) (Chronic) Small cell lung cancer (Chronic) History of coronary artery stent placement (Chronic) PTCA/stent of the mid LAD, prox 1st diag, prox RCA 08/13/10; PTCA/BETO of the Ostial/Prox 1st diag 12/15/16 Obesity (BMI 30-39.9) (Chronic) Smoking addiction (Chronic) COPD (chronic obstructive pulmonary disease) (Chronic) HTN (hypertension) (Chronic) Medical History: Medical History (Last Reviewed 04/20/19 @ 15:02 by Cheri Vo) Paroxysmal atrial fibrillation (Chronic) I48.0 Atherosclerotic heart disease of [place] coronary artery without angina pectoris (Chronic) I25.10 PTCA/stent of the mid LAD, prox 1st diag, prox RCA 08/13/10; PTCA/BETO of the Ostial/Prox 1st diag 12/15/16 Dyspnea (Chronic) R06.00 Fatigue (Chronic) R53.83 Wheezing (Chronic) R06.2 Long-term use of high-risk medication (Chronic) Z79.899 Primary small cell malignant neoplasm of lung, stage 3 (Chronic) C34.90 Acute DVT (deep venous thrombosis) (Chronic) I82.409 Nocturnal hypoxia (Chronic) G47.34 Radiation esophagitis (Chronic) K20.8 HLD (hyperlipidemia) (Chronic) E78.5 Small cell lung cancer (Chronic) C34.90 Obesity (BMI 30-39.9) (Chronic) E66.9 Smoking addiction (Chronic) F17.200 COPD (chronic obstructive pulmonary disease) (Chronic) J44.9 HTN (hypertension) (Chronic) I10 GERD (gastroesophageal reflux disease) K21.9 History of DVT (deep vein thrombosis) Z86.718 PND (post-nasal drip) R09.82 Bradycardia (Resolved) R00.1 Chest pain (Resolved) R07.9 Acute cystitis (Inactive) N30.00 Adjustment and management of vascular access device (Inactive) Z45.2 Chemotherapy induced nausea and vomiting (Inactive) R11.2, T45.1X5A DVT of upper extremity (deep vein thrombosis) (Inactive) I82.629 Encephalopathy (Inactive) G93.40 Lightheadedness (Inactive) R42 Pancytopenia (Inactive) D61.818 Sepsis (Inactive) A41.9 Allergies No Known Allergies Allergy (Verified 05/25/19 07:20) Home Medications: Ambulatory Orders Medication Instructions Recorded Multivit-Min/FA/Lycopen/Lutein 1 ea PO DAILY 10/14/16 [Centrum Silver Tablet] aspirin 81 mg tablet,delayed 81 mg PO QDAY 12/19/17 release ascorbic acid (vitamin C) 500 mg 500 mg PO QDAY cap 12/20/17 capsule albuterol sulfate HFA 90 1 - 2 puff INHALATION Q4H PRN PRN 02/21/18 mcg/actuation aerosol inhaler #1 device cholecalciferol (vitamin D3) 5,000 5,000 unit PO DAILY 06/21/18 unit capsule simvastatin 20 mg tablet 20 mg PO QHS 90 Days #90 tab 06/21/18 clopidogrel 75 mg tablet 75 mg PO DAILY #90 tab 10/04/18 amiodarone 200 mg tablet 100 mg PO DAILY #45 tab 01/30/19 metoprolol tartrate 50 mg tablet 50 mg PO BID #180 tab 03/29/19 nitroglycerin 0.4 mg sublingual 0.4 mg SUBLINGUAL PRN PRN #25 tab 04/07/19 tablet Surgical History: Surgical History (Last Reviewed 04/20/19 @ 15:02 by Cheri Vo) History of coronary artery stent placement (Chronic) Z95.5 PTCA/stent of the mid LAD, prox 1st diag, prox RCA 08/13/10; PTCA/BETO of the Ostial/Prox 1st diag 12/15/16 H/O percutaneous transluminal coronary angioplasty Z98.61 PTCA/stent of the mid LAD, prox 1st diag, prox RCA 08/13/10; PTCA/BETO of the Ostial/Prox 1st diag 12/15/16 Hx of appendectomy Z90.49 Surgical History: appendectomy, - - Cardiac stents. Psychiatric History: No pertinent psych hx Smoking Status: Former smoker - *Family History Maternal Family History: Family History (Last Reviewed 04/20/19 @ 15:02 by Cheri Vo) Father Heart disease Mother Cancer Brother Diabetes Son Atrial fibrillation History Items: Cancer - Lung cancer Paternal Family History: Family History (Last Reviewed 04/20/19 @ 15:02 by Cheri Vo) Father Heart disease Mother Cancer Brother Diabetes Son Atrial fibrillation History Items: Heart Disease Sibling Family History: Family History (Last Reviewed 04/20/19 @ 15:02 by Cheri Vo) Father Heart disease Mother Cancer Brother Diabetes Son Atrial fibrillation History Items: Diabetes Review of Systems Constitutional: Reports: Anorexia, Chills, Fever, Malaise, Weakness, Fatigue HEENT: Denies: Head Aches, Sinus Congestion, Sinus Drainage Cardiovascular: Reports: Chest Pain - Left infra axillary chest pain on cough, pleuritic in nature. Denies: Palpitations Respiratory: Reports: Cough, Hemoptysis, Pleuritic Pain, Shortness of breath at rest, Shortness of breath upon exertion, Sputum production, Wheezing Gastrointestinal: Denies: Abdominal Pain, Nausea, Vomiting Genitourinary: Denies: Dysuria, Frequency, Hematuria Musculoskeletal: Reports: Joint Pain. Denies: Joint Tenderness Skin: Denies: Rash, Wounds Neurological: Denies: Numbness, Tingling, Focal weakness Psychiatric: Reports: Anxiety, Depression. Denies: Homicidal Ideations, Suicidal Ideations Hematologic/ Lymphatic: Denies: Easy Bruising, Easy Bleeding VTE Information - Inpt Only VTE Present on Admission: No VTE Mechan Device Prophylaxis: SCD's, None VTE Pharm Prophylaxis ordered?: Yes Patient Problems: Active and Suspected Problems (Last Reviewed 04/20/19 @ 15:02 by Cheri Vo) Community-acquired pneumonia (Acute) Acute and chronic respiratory failure with hypoxia (Acute) - Physical Exam Vitals/I&O's: Vital Signs Temp Pulse Resp BP Pulse Ox 98 F 120 H 20 H 98/75 98 05/25/19 09:17 05/25/19 10:27 05/25/19 10:27 05/25/19 10:27 05/25/19 10:27 Oxygen Flow Rate (L/min) 4 Oxygen Delivery Method Nasal Cannula Weight: 212 lb Body Mass Index (BMI) 30.4 General: Alert, Oriented x3, Cooperative HEENT: Atraumatic, PERRLA, EOMI, Normocephalic Oral: Dry Mucosa Neck: Supple, No JVD, Negative Carotid Bruits Lungs: Diminished - Air entry diffusely diminished in all lung [place]., Rhonchi, Short of Breath, Wheezes Cardiovascular: Regular rate, Regular Rhythm, Normal S1, Normal S2, No murmurs Abdomen: Bowel Sounds Present, Soft, Non Tender, Non-Distended Extremities: No edema, Capillary Refill Less than 3 Seconds Skin: No rashes, No breakdown Musculoskeletal: No Tenderness to Palpation of Joints or Extremities, Arthritic Changes Neurological: Cranial nerves II-XII grossly intact, Deep Tendon Reflexes 2+/4 and Symmetrical, Neuro grossly intact Psych/Mental Status: Normal Affect, Appropriate Laboratory Results 05/25/19 07:50: WBC 7.1, RBC 3.82 L, Hgb 12.0 L, Hct 38.2 L, MCV 100.0 H, MCH 31.4, MCHC 31.4 L, RDW Std Deviation 51.0 H, RDW Coeff of Jamie 14.0, Plt Count 145 L, MPV 10.0, Immature Gran % (Auto) 0.400, Neut % (Auto) 69.9, Lymph % (Auto) 19.5, [place] % (Auto) 8.0, Eos % (Auto) 1.6, Baso % (Auto) 0.6, Absolute Neuts (auto) 5.0, Absolute Lymphs (auto) 1.38, Nucleated RBC % 0 05/25/19 07:50: Sodium 140, Potassium 4.0, Chloride 107, Carbon Dioxide 30.0, Anion Gap 3 L, BUN 18, Creatinine 1.09, Estim Creat Clear Calc 63.25, Est GFR (MDRD) Af Amer 85, Est GFR (MDRD) Non-Af 71, BUN/Creatinine Ratio 16.5, Glucose 122 H, Calcium 9.1, Troponin I < 0.015 05/25/19 07:50: Lactic Acid 1.2 05/25/19 07:50: B-Natriuretic Peptide 174.6 H Current Medications Azithromycin 500 mg/ Dextrose 255 mls @ 250 mls/hr IV X1 ONE Stop: 05/25/19 11:42 Ceftriaxone Sodium (Rocephin) 1 gm in 50 mls @ 100 mls/hr IV X1 ONE Stop: 05/25/19 11:10 Assessment/Plan All Active Problems (Last Reviewed 04/20/19 @ 15:02 by Cheri Vo) Community-acquired pneumonia (Acute) Acute and chronic respiratory failure with hypoxia (Acute) Chest pain at rest (Acute) Bradycardia (Resolved) Chest pain (Resolved) The patient is a 73 year old M with history of non-small cell lung cancer, hilar mass, last chemo about 6 weeks ago came to ER with 2 weeks of progressive worsening of cough with sputum, shortness of breath and hypoxia. Patient took amoxicillin for 7 days by PCP and still did not get better. Patient also had a small amount of hemoptysis before coming to ER. In ED, heart rate is in 120s, blood pressure 90/63, respiratory rate 20 and pulse ox 96% on 4 L oxygen nasal cannula. [] Lactic acid normal. BUN/creatinine normal. BNP 174. 1. Acute on chronic hypoxic respiratory failure secondary to complicated pneumonia with right moderate pleural effusion, new since previous CT of 02/21/2019 and associated COPD exacerbation secondary to pneumonia: Patient is being admitted in stepdown. As patient had amoxicillin as an outpatient for 7 days therefore will start on Levaquin 750 mg IV daily. Pneumonia work-up including blood cultures x2, sputum culture, urinary antigens for Legionella and Streptococcus, MRSA nasal screen, respiratory panel ordered. UA also ordered. Chest CT also shows focus of bronchiectasis, postradiation fibrosis in right upper lobe and mediastinal adenopathy,pleural thickening on left side with evidence of plaque calcification. Discussed with payment poster. He had complete PFT in February 2018 which showed moderate mixed ventilatory defect with symmetric reduction in DLCO suboptimal bronchodilator response. It seems he canceled last visit 10/18/2018. 2. Hematology conditions and non-small cell lung cancer on chemoradiation: Patient follows Oncologist Dr. Ayon. Patient has normocytic normochromic anemia most probably neoplastic or/chemotherapy. Patient has normal white count, mild anemia H&H 12/38.2, mild thrombocytopenia, 1 45,000. 3. Coronary artery disease status post stents,: Patient had left infra-axillary pleuritic chest pain on cough. Troponin is negative. EKG shows sinus tachycardia with LAD. QTc 508 ms but it seems prolonged secondary to tachycardia. Normal QT interval 348 ms. Repeat EKG and monitor QTC as patient is on Levaquin, amiodarone QT prolonging medications. It seems patient had last PCI/stent in December 2016 of ostial/proximal first diagonal artery. Will hold Plavix in case patient needs thoracocentesis. 4. Paroxysmal A. fib: EKG shows sinus tachycardia at 128 bpm. It seems response to sepsis secondary to pneumonia. Last echo in April 2016 reported as EF 65% with no regional wall motion abnormality. Normal RV size systolic function. Normal right and left atria. 5. Multiple other comorbidities include hypertension, dyslipidemia, radiation fibrosis, radiation esophagitis history of gram-negative pneumonia. Poor prognosis. Will consult Dr. Ayon for overall survival prognosis. Clinical Impression(s) from Imaging Studies Chest X-Ray 05/25/19 07:32 IMPRESSION: New right pleural effusion with underlying infiltration and/or atelectasis. Increased markings at the left lung base with blunting of the left costophrenic angle. Chest X-Ray 05/25/19 08:32 IMPRESSION: Bilateral pleural effusions. Chest CTA 05/25/19 09:12 IMPRESSION: Large right hilar mass with right pleural effusion and infiltration in the right lower lobe. 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 Mediastinal lymphadenopathy. Pleural thickening on the left side with evidence of plaque calcification. Cystic nodule in the spleen. Code Visit Inpatient E&M: 01246 Init Hosp L3
[2019-05-25] MEDS: MethylPREDNISolone 125 MG/2 ML Vial IV (11:03)
[2019-05-25] MEDS: Ceftriaxone 1 GM/50 ML BAG IV (11:39)
[2019-05-25 13:24] LABS: International Normalized Ratio 1.2; Prothrombin Time (Protime)PT. 15.2 SECONDS (11.7-14.9)
[2019-05-25 13:28] LABS: AST(SGOT) 16 U/L (15-37); Alanine Aminotransfer ALT/SGPT 24 U/L (16-61); Albumin, Serum 3.2 g/dL (3.2-5.0); Alkaline Phosphatase 70 U/L (45-117); Bilirubin, Direct 0.13 mg/dL (0.00-0.30); Globulin 3.6 g/dL (2.2-4.2); Protein, Total 6.8 g/dL (6.4-8.2)
--- NOTE | 2019-05-25 13:32 | PCM.CONS.PUL ---
Reason for Consult Date of Consultation: 05/25/19 Reason for Consultation: Complicated pneumonia, hilar mass History of Present Illness: The patient is a 73-year-old male, with a history as outlined below, who presented to the emergency department on May 25 with complaints of shortness of breath and productive cough. The patient has a history of known lung cancer and COPD. 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 The patient has undergone both chemo and radiation. The patient has prior pulmonary function testing consistent with a mixed ventilatory defect. Repeat pulmonary function testing was completed in February 2018 revealed evidence of any reversible moderate mixed ventilatory defect with a symmetric reduction in diffusing capacity. A 6 minute walk test was also completed which revealed significant exertional oxygen desaturation, that did not meet inclusion criteria for the use of supplemental O2. CT of the chest completed on October 05, 2017 was negative for PE, did show arthrosclerotic changes of thoracic aorta without aneurysm or dissection. Stable chronic lung changes bilaterally without new consolidation, focal atelectasis or a substantial pleural effusion. Chronic pleural calcifications on the left. Chronic mild elevation of the right diaphragm. The patient was last seen by oncology in April 2019, at which time, the plan was to continue longitudinal observation and repeat a CT in 2 months. On presentation to the emergency department, the patient was noted to be afebrile and tachycardic. He was requiring 4 L/min of supplemental oxygen to maintain appropriate saturations. Laboratory evaluation revealed no evidence of a leukocytosis. There was evidence of normocytic anemia and thrombocytopenia. INR was within normal limits. Chemistry profile was largely unremarkable. A CTA chest was obtained which revealed mediastinal adenopathy along with a right hilar mass, bronchiectasis and nodular density in the right upper lobe. A right pleural effusion was also noted. The patient was subsequently treated with aerosols, IV steroids and antibiotics. He was admitted to the progressive care unit for further management. Past Medical History Past Medical History (Chronic Problems): Chronic Problems (Last Reviewed 04/20/19 @ 15:02 by Cheri Vo) Thrombocytopenia (Chronic) Anemia (Chronic) Gram-negative pneumonia (Chronic) Pancytopenia (Chronic) Neutropenic fever (Chronic) Right upper lobe pulmonary nodule (Chronic) Non-small cell carcinoma of left lung, stage 3 (Chronic) Paroxysmal atrial fibrillation (Chronic) Atherosclerotic heart disease of [place] coronary artery without angina pectoris (Chronic) PTCA/stent of the mid LAD, prox 1st diag, prox RCA 08/13/10; PTCA/BETO of the Ostial/Prox 1st diag 12/15/16 Dyspnea (Chronic) Fatigue (Chronic) Wheezing (Chronic) Long-term use of high-risk medication (Chronic) Primary small cell malignant neoplasm of lung, stage 3 (Chronic) Acute DVT (deep venous thrombosis) (Chronic) Nocturnal hypoxia (Chronic) Radiation esophagitis (Chronic) HLD (hyperlipidemia) (Chronic) Small cell lung cancer (Chronic) History of coronary artery stent placement (Chronic) PTCA/stent of the mid LAD, prox 1st diag, prox RCA 08/13/10; PTCA/BETO of the Ostial/Prox 1st diag 12/15/16 Obesity (BMI 30-39.9) (Chronic) Smoking addiction (Chronic) COPD (chronic obstructive pulmonary disease) (Chronic) HTN (hypertension) (Chronic) Medical History: Medical History (Last Reviewed 04/20/19 @ 15:02 by Cheri Vo) Paroxysmal atrial fibrillation (Chronic) I48.0 Atherosclerotic heart disease of [place] coronary artery without angina pectoris (Chronic) I25.10 PTCA/stent of the mid LAD, prox 1st diag, prox RCA 08/13/10; PTCA/BETO of the Ostial/Prox 1st diag 12/15/16 Dyspnea (Chronic) R06.00 Fatigue (Chronic) R53.83 Wheezing (Chronic) R06.2 Long-term use of high-risk medication (Chronic) Z79.899 Primary small cell malignant neoplasm of lung, stage 3 (Chronic) C34.90 Acute DVT (deep venous thrombosis) (Chronic) I82.409 Nocturnal hypoxia (Chronic) G47.34 Radiation esophagitis (Chronic) K20.8 HLD (hyperlipidemia) (Chronic) E78.5 Small cell lung cancer (Chronic) C34.90 Obesity (BMI 30-39.9) (Chronic) E66.9 Smoking addiction (Chronic) F17.200 COPD (chronic obstructive pulmonary disease) (Chronic) J44.9 HTN (hypertension) (Chronic) I10 GERD (gastroesophageal reflux disease) K21.9 History of DVT (deep vein thrombosis) Z86.718 PND (post-nasal drip) R09.82 Bradycardia (Resolved) R00.1 Chest pain (Resolved) R07.9 Acute cystitis (Inactive) N30.00 Adjustment and management of vascular access device (Inactive) Z45.2 Chemotherapy induced nausea and vomiting (Inactive) R11.2, T45.1X5A DVT of upper extremity (deep vein thrombosis) (Inactive) I82.629 Encephalopathy (Inactive) G93.40 Lightheadedness (Inactive) R42 Pancytopenia (Inactive) D61.818 Sepsis (Inactive) A41.9 Allergies No Known Allergies Allergy (Verified 05/25/19 07:20) Home Medications: Ambulatory Orders Medication Instructions Recorded Multivit-Min/FA/Lycopen/Lutein 1 ea PO DAILY 10/14/16 [Centrum Silver Tablet] aspirin 81 mg tablet,delayed 81 mg PO QDAY 12/19/17 release ascorbic acid (vitamin C) 500 mg 500 mg PO QDAY cap 12/20/17 capsule albuterol sulfate HFA 90 1 - 2 puff INHALATION Q4H PRN PRN 02/21/18 mcg/actuation aerosol inhaler #1 device cholecalciferol (vitamin D3) 5,000 5,000 unit PO DAILY 06/21/18 unit capsule simvastatin 20 mg tablet 20 mg PO QHS 90 Days #90 tab 06/21/18 clopidogrel 75 mg tablet 75 mg PO DAILY #90 tab 10/04/18 amiodarone 200 mg tablet 100 mg PO DAILY #45 tab 01/30/19 metoprolol tartrate 50 mg tablet 50 mg PO BID #180 tab 03/29/19 nitroglycerin 0.4 mg sublingual 0.4 mg SUBLINGUAL PRN PRN #25 tab 04/07/19 tablet Surgical History: Surgical History (Last Reviewed 04/20/19 @ 15:02 by Cheri Vo) History of coronary artery stent placement (Chronic) Z95.5 PTCA/stent of the mid LAD, prox 1st diag, prox RCA 08/13/10; PTCA/BETO of the Ostial/Prox 1st diag 12/15/16 H/O percutaneous transluminal coronary angioplasty Z98.61 PTCA/stent of the mid LAD, prox 1st diag, prox RCA 08/13/10; PTCA/BETO of the Ostial/Prox 1st diag 12/15/16 Hx of appendectomy Z90.49 Surgical History: appendectomy, - - Cardiac stents. Psychiatric History: No pertinent psych hx Smoking Status: Former smoker - *Family History Maternal Family History: Family History (Last Reviewed 04/20/19 @ 15:02 by Cheri Vo) Father Heart disease Mother Cancer Brother Diabetes Son Atrial fibrillation History Items: Cancer - Lung cancer Paternal Family History: Family History (Last Reviewed 04/20/19 @ 15:02 by Cheri Vo) Father Heart disease Mother Cancer Brother Diabetes Son Atrial fibrillation History Items: Heart Disease Sibling Family History: Family History (Last Reviewed 04/20/19 @ 15:02 by Cheri Vo) Father Heart disease Mother Cancer Brother Diabetes Son Atrial fibrillation History Items: Diabetes Review of Systems Constitutional: Reports: Malaise, Fatigue Eyes: Denies: Blurred vision, Double vision HEENT: Denies: Head Aches, Sinus Congestion, Sinus Drainage Cardiovascular: Reports: Orthopnea. Denies: Chest Pain, Palpitations Respiratory: Reports: Cough, Hemoptysis, Shortness of Breath, Sputum production Gastrointestinal: Denies: Abdominal Pain, Nausea, Vomiting Genitourinary: Denies: Dysuria Musculoskeletal: Denies: Joint Pain, Joint Tenderness Skin: Denies: Rash, Wounds Neurological: Denies: Numbness, Tingling, Focal weakness Psychiatric: Denies: Anxiety, Depression, Homicidal Ideations, Suicidal Ideations Hematologic/ Lymphatic: Reports: Anemia Patient Problems: Active and Suspected Problems (Last Reviewed 04/20/19 @ 15:02 by Cheri Vo) Community-acquired pneumonia (Acute) Acute and chronic respiratory failure with hypoxia (Acute) Objective: The patient's most recent lab work, culture data and imaging studies have all been personally reviewed. - Physical Exam Vitals/I&O's: Vital Signs Temp Pulse Resp BP Pulse Ox 98.8 F 126 H 20 H 104/74 94 05/25/19 12:15 05/25/19 12:30 05/25/19 12:15 05/25/19 12:15 05/25/19 12:15 Oxygen Flow Rate (L/min) 2 Oxygen Delivery Method Nasal Cannula Weight: 212 lb 8.41 oz Body Mass Index (BMI) 30.4 Intake and Output for Last 24 Hours 05/23/19 05/24/19 05/25/19 23:59 23:59 23:59 Intake Total 50 / 50 Balance 50 / 50 General: Alert, Cooperative, No apparent distress HEENT: Atraumatic, PERRLA, Normocephalic Oral: No Gingival or Mucosal Lesions/ Ulcerations Neck: Supple, No Nodes, Trachea Midline Lungs: Diminished, Rales, Short of Breath, Wheezes Cardiovascular: Normal S1, Normal S2, Tachycardic Abdomen: Bowel Sounds Present, Soft, Non Tender Extremities: No clubbing, No cyanosis, No edema Skin: No breakdown Musculoskeletal: No Tenderness to Palpation of Joints or Extremities Lymphatic: No Cervical, Supraclavicular, or Inguinal Adenopathy Neurological: Neuro grossly intact Psych/Mental Status: Normal Affect, Appropriate Labs (Last 48 Hours) 05/25/19 05/25/19 05/25/19 07:50 07:50 07:50 WBC 7.1 RBC 3.82 L Hgb 12.0 L Hct 38.2 L MCV 100.0 H MCH 31.4 MCHC 31.4 L RDW Std Deviation 51.0 H RDW Coeff of Jamie 14.0 Plt Count 145 L MPV 10.0 Immature Gran % (Auto) 0.400 Neut % (Auto) 69.9 Lymph % (Auto) 19.5 [place] % (Auto) 8.0 Eos % (Auto) 1.6 Baso % (Auto) 0.6 Absolute Neuts (auto) 5.0 Absolute Lymphs (auto) 1.38 Nucleated RBC % 0 PT INR Sodium 140 Potassium 4.0 Chloride 107 Carbon Dioxide 30.0 Anion Gap 3 L BUN 18 Creatinine 1.09 Estim Creat Clear Calc 63.25 Est GFR (MDRD) Af Amer 85 Est GFR (MDRD) Non-Af 71 BUN/Creatinine Ratio 16.5 Glucose 122 H Lactic Acid 1.2 Calcium 9.1 Total Bilirubin Direct Bilirubin AST ALT Alkaline Phosphatase Troponin I < 0.015 C-React Prot Ext Range B-Natriuretic Peptide Total Protein Albumin Globulin 05/25/19 05/25/19 05/25/19 07:50 07:50 07:50 WBC RBC Hgb Hct MCV MCH MCHC RDW Std Deviation RDW Coeff of Jamie Plt Count MPV Immature Gran % (Auto) Neut % (Auto) Lymph % (Auto) [place] % (Auto) Eos % (Auto) Baso % (Auto) Absolute Neuts (auto) Absolute Lymphs (auto) Nucleated RBC % PT 15.2 H INR 1.2 Sodium Potassium Chloride Carbon Dioxide Anion Gap BUN Creatinine Estim Creat Clear Calc Est GFR (MDRD) Af Amer Est GFR (MDRD) Non-Af BUN/Creatinine Ratio Glucose Lactic Acid Calcium Total Bilirubin 0.40 Direct Bilirubin 0.13 AST 16 ALT 24 Alkaline Phosphatase 70 Troponin I C-React Prot Ext Range 26.00 H B-Natriuretic Peptide 174.6 H Total Protein 6.8 Albumin 3.2 Globulin 3.6 Clinical Impression(s) from Imaging Studies Chest X-Ray 05/25/19 07:32 IMPRESSION: New right pleural effusion with underlying infiltration and/or atelectasis. Increased markings at the left lung base with blunting of the left costophrenic angle. Electronically Signed: Miguel Chacon, at 8:38 EST , Service support , Chest X-Ray 05/25/19 08:32 IMPRESSION: Bilateral pleural effusions. Electronically Signed: Miguel Chacon, at 9:05 EST , Service support , Chest CTA 05/25/19 09:12 IMPRESSION: Large right hilar mass with right pleural effusion and infiltration in the right lower lobe. 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 Mediastinal lymphadenopathy. Pleural thickening on the left side with evidence of plaque calcification. Cystic nodule in the spleen. Electronically Signed: Miguel Chacon, at 10:29 EST , Service support , Current Medications Acetaminophen (Tylenol) 650 mg PO Q6H PRN PRN PRN Reason: Pain Score 1-3/Temp > 100.7 F Albuterol Sulfate (Ventolin Aerosols) 2.5 mg INHALATION Q2H PRN PRN PRN Reason: SOB/Wheezing Amiodarone HCl (Cordarone) 200 mg PO X1 ONE Stop: 05/25/19 13:23 Amiodarone HCl (Cordarone) 100 mg PO DAILY [facility] Aspirin (Ecotrin) 81 mg PO QDAY [facility] Clopidogrel Bisulfate (Plavix) 75 mg PO DAILY [facility] Dextrose (D50w Syringe) 0 gm IV X1 PRN; Protocol PRN Reason: Hypoglycemia Glucagon () 1 mg IM .X1 PRN PRN Reason: Hypoglycemia Guaifenesin (Mucinex) 1,200 mg PO BID [facility] Heparin Sodium (Beef Lung) () 50 units IV UD PRN PRN Reason: R Port Heparin Flush Levofloxacin (Levaquin Iv) 750 mg in 150 mls @ 100 mls/hr IV Q24 [facility] Stop: 06/01/19 13:21 Metoprolol Tartrate (Lopressor (Beta Sukhwinder)) 50 mg PO BID [facility] Morphine Sulfate () 2 mg IV Q3H PRN PRN PRN Reason: Pain Score 6-10/10 Nitroglycerin (Nitrostat) 0.4 mg SUBLINGUAL PRN PRN PRN Reason: chest pain Non-Formulary Medication (Ascorbic Acid [Vitamin C]) 500 mg PO QDAY [facility] Non-Formulary Medication (Cholecalciferol (Vitamin D3)) 5,000 unit PO DAILY [facility] Non-Formulary Medication (Multivit-Min/Fa/Lycopen/Lutein [Centrum Silver Tablet]) 1 ea PO DAILY [facility] Non-Formulary Medication (Simvastatin) 20 mg PO QHS [facility] Oxycodone HCl (Oxyir) 5 mg PO Q4H PRN PRN PRN Reason: Pain Score 4-5/10 Prochlorperazine Edisylate (Compazine Iv) 5 mg IV Q4H PRN PRN PRN Reason: Breakthrough Nausea/Vomiting Promethazine HCl (Phenergan) 12.5 mg IV Q6H PRN PRN PRN Reason: Breakthrough Nausea/Vomiting Senna/Docusate Sodium (Senokot-S, Negar-Colace) 2 tablet PO BID PRN PRN PRN Reason: Constipation Sodium Chloride () 10 - 40 ml IV UD PRN PRN Reason: R [place] Flush Sodium Chloride (0.9% Nacl (Sterile) Posiflush) 10 - 40 ml IV UD PRN PRN Reason: Port access or dressing change Assessment/Plan All Active Problems (Last Reviewed 04/20/19 @ 15:02 by Cheri Vo) Community-acquired pneumonia (Acute) Acute and chronic respiratory failure with hypoxia (Acute) Chest pain at rest (Acute) Bradycardia (Resolved) Chest pain (Resolved) RECOMMENDATIONS: 1. Recommend broadening antimicrobials to include vancomycin and Zosyn. 2. Check respiratory viral panel, along with strep and urine Legionella antigens and MRSA screen. 3. Obtain and send sputum for culture. 4. Obtain oncology consultation. 5. Obtain echocardiogram. 6. Wean supplemental oxygen to maintain saturations at or above 90%. 7. Hold Plavix and aspirin, should diagnostic thoracentesis be required. 8. Given increasing oxygen requirement and potential for clinical decompensation, recommend transfer to ICU. IMPRESSIONS: 1. Acute hypoxemic respiratory failure While the patient does have a history of a moderate mixed ventilatory defect, his radiographic findings noted on CTA chest are concerning for underlying progression of his lung malignancy, coupled with what appears to be a pulmonary infectious process and new right-sided pleural effusion. The patient's effusion may be secondary to infectious versus malignant etiologies. However, at the current time, the patient's use of aspirin and Plavix would preclude a thoracentesis from being performed. For now, the patient will be started on broad-spectrum antimicrobials with vancomycin and Zosyn. Infectious work-up has been ordered. Supplemental oxygen will be weaned to maintain saturations at or above 90%. Will obtain surface echocardiogram as well. Continue bronchodilators and IV steroids. 2. 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 Ayon of oncology. I did personally call and speak with him this afternoon. I have asked that he be involved in the patient's care to assist with prognostication and goals of care discussions. 3. History of coronary artery disease/paroxysmal atrial fibrillation/hyperlipidemia The patient's home aspirin and Plavix are going to be held, should thoracentesis need to be performed. 4. CODE status: Discussed CODE status at length including difference between FULL code, DNR-CCA and DNR-CC status. Following discussions about the differences in these status, patient requested full CODE STATUS. Advanced Care Planning Face to Face Time: 15 minutes This note was generated with [employer] software. It may contain incorrect words, spelling, and punctuation that were not noted in checking the note before signing. Code Visit Inpatient E&M: 26206 Init Hosp L3 Procedures: 38661 Advncd Care Plan 30 Min
--- NOTE | 2019-05-25 14:09 | ECHOCS_ITS ---
Reason For Study: DYSPNEA/SOB Procedure This was a 2D Doppler, Color Flow transthoracic echocardiogram. The study was technically difficult. Due to body habitus. Contrast injection was performed. Exam performed portable in ICU/CCU. Left Ventricle Normal LV size. Left ventricular systolic function is normal. The estimated ejection fraction is 65 %. No regional wall motion abnormalities noted. Right Ventricle Normal RV size. Normal systolic function. Atria Normal left atrium. Normal right atrium. Mitral Valve Mitral valve not well visualized. Tricuspid Valve Normal tricuspid valve. Mild (1+) tricuspid valve insufficiency. Pulmonary artery systolic pressure is 25 mmHg. Aortic Valve The aortic valve is not well visualized. Pulmonic Valve The pulmonic valve is not well visualized. Great Vessels Normal aortic root. The pulmonary artery is normal size. Normal inferior vena cava. Pericardium/Pleural No pericardial effusion. Medication Diluted definity 3.0ml given slow IV push to enhance endocardial definition. MMode/2D Measurements & Calculations LVIDd: 4.1 cm IVSd: 1.1 cm LA dimension: 3.8 cm LVIDs: 2.9 cm LVPWd: 1.1 cm RVDd: 3.4 cm FS: 29.6 % LAV(MOD-bp): 49.4 ml LA A4 area: 14.8 cm2 RA A4 area: 12.7 cm2 LAV(MOD-bp) Indexed: 23.0 ml/m2 LAV(MOD-sp2): 44.6 ml LAV(MOD-sp4): 39.8 ml Time Measurements MV dec time: 0.16 sec Doppler Measurements & Calculations MV E max nico: 82.9 cm/sec Lat Peak E' Nico: 7.9 cm/sec Med Peak E' Nico: 7.6 cm/sec MV A max nico: 59.0 cm/sec E/E' lat: 10.5 E/E' med: 10.9 MV E/A: 1.4 Ao V2 max: 108.4 cm/sec LV V1 max: 83.5 cm/sec PA V2 max: 48.6 cm/sec Ao max P.7 mmHg LV V1 max P.8 mmHg TR max nico: 227.8 cm/sec TR max P.8 mmHg Interpretation Summary Normal LV size. Left ventricular systolic function is normal. The estimated ejection fraction is 65 %. Contrast injection was performed. Ordering Physician: Jaguar Dos Santos Referring Physician: Rogelio Green Performed By: Cristela Keller RDCS, RVT
[2019-05-25] MEDS: Albuterol 2.5 MG/3 ML VIAL.NEB. INHALATION (14:10)
--- NOTE | 2019-05-25 14:14 | CPS ---
patient states he does not want or need bipap
--- NOTE | 2019-05-25 14:22 | PCM.RX.CS ---
<Alyce Barnett - Last Filed: 05/25/19 14:22> Consult Pharmacy has been consulted to manage selected antiobiotic: Vancomycin Type of Consult: New start Suspected Infection: Pneumonia Prior Doses of Antibiotics Received/Current Regimen: NONE Labs: Sodium 140 mmol/L (136-145) 05/25/19 07:50 Potassium 4.0 mmol/L (3.5-5.1) 05/25/19 07:50 Chloride 107 mmol/L (98-107) 05/25/19 07:50 Carbon Dioxide 30.0 mmol/L (21.0-32.0) 05/25/19 07:50 Anion Gap 3 (5-15) L 05/25/19 07:50 BUN 18 mg/dL (7-18) 05/25/19 07:50 Creatinine 1.09 mg/dL (0.70-1.30) 05/25/19 07:50 Est GFR (MDRD) Af Amer 85 mL/min (>60) 05/25/19 07:50 Est GFR (MDRD) Non-Af 71 mL/min (>60) 05/25/19 07:50 BUN/Creatinine Ratio 16.5 RATIO (10-20) 05/25/19 07:50 Glucose 122 mg/dL (74-106) H 05/25/19 07:50 Weight used for dosin lb 8.41 oz Estimated Creatinine Clearance: 63 ML/MIN Goal Trough: 15-20 mcg/mL Pharmacy Plan for Drug Dosing: PLAN/RECOMMENDATIONS 1. Vancomycin loading dose 2000mg IV x1 05/25/19 @1300 2. Scheduled vancomycin 1250mg IV Q12hr to start 05/26/19 @0300 3. Trough prior to 4th total dose per protocol 05/27/19 @0230 4. Pharmacy Service will continue to monitor and adjust dosing as required. <Alirio Das - Last Filed: 05/25/19 15:39> Consult Labs: Sodium 140 mmol/L (136-145) 05/25/19 07:50 Potassium 4.0 mmol/L (3.5-5.1) 05/25/19 07:50 Chloride 107 mmol/L (98-107) 05/25/19 07:50 Carbon Dioxide 30.0 mmol/L (21.0-32.0) 05/25/19 07:50 Anion Gap 3 (5-15) L 05/25/19 07:50 BUN 18 mg/dL (7-18) 05/25/19 07:50 Creatinine 1.09 mg/dL (0.70-1.30) 05/25/19 07:50 Est GFR (MDRD) Af Amer 85 mL/min (>60) 05/25/19 07:50 Est GFR (MDRD) Non-Af 71 mL/min (>60) 05/25/19 07:50 BUN/Creatinine Ratio 16.5 RATIO (10-20) 05/25/19 07:50 Glucose 122 mg/dL (74-106) H 05/25/19 07:50 Pharmacy Plan for Drug Dosing: Pharmacy Service will continue to monitor and adjust dosing as required.
[2019-05-25] MEDS: Amiodarone 200 MG Tablet PO (14:37)
[2019-05-25] MEDS: guaiFENesin 1,200 MG Tablet 1200 MG PO ×2 (14:37→21:48)
[2019-05-25 15:53] LABS: BNP,B-Type NATRIURETIC PEPTIDE 169.5 pg/mL (0-100)
[2019-05-25 17:31] LABS: M R Staph aureus DNA By PCR Negative (Negative); Probe Check PASS; Specimen Processing Control PASS
[2019-05-25 17:31] LABS: Bacteria 0 SEEN /hpf (None Seen); Mucous, Urine 0 SEEN /hpf (<or=2+); Squamous Epithelial Cells - UA 0 SEEN /hpf (0-5)
[2019-05-25 17:46] LABS: Color, Urine Yellow (Yellow); Glucose, Dipstick Normal (Normal); Ketone-Dipstick 5 mg/dl (Negative); Leukocyte Esterase-Dipstick 100 /ul (Negative); Nitrite-Dipstick Negative (Negative); Occult Blood-Urine 50 /ul (Negative); Protein-Dipstick 30 mg/dl (Negative); Urine Bilirubin Dipstick Negative (Negative); Urine Clarity Clear (Clear); Urine Urobilinogen Normal (Normal)
[2019-05-25 17:57] LABS: Red Blood Cells-Urine 0-5 SEEN /hpf (0-5); White Blood Cells 0-5 SEEN /hpf (0-5)
[2019-05-25] MEDS: Metoprolol Tartrate 50 MG Tablet PO (21:48)
[2019-05-25] MEDS: Atorvastatin Calcium 10 MG Tablet PO (21:48)
[2019-05-26] VITALS (30 sets, daily range): BP systolic 90–117; BP diastolic 63–86; PULSE 72–87; RESP 16–35; TEMP 36.3–37.2; O2SAT 92–98
[2019-05-26] MEDS: Albuterol 2.5 MG/3 ML VIAL.NEB. INHALATION ×3 (01:48→18:37)
--- NOTE | 2019-05-26 02:11 | CPS ---
Nasal Cannula titrated from 4L - 3L; pt.'s SpO2 remains > 95%
--- NOTE | 2019-05-26 02:13 | CPS ---
Pt. states he will wear if needed; pt. isn't working to breathe or showing signs of any distress
[2019-05-26 04:28] LABS: Absolute Lymphocyte Count 0.54 X10^3/uL (0.83-4.51); Absolute Neutrophil Count 6.7 X10^3/uL (2.0-7.7); Basophil# 0.01 X10^3/uL; Basophil% 0.1 % (0-1); Hematocrit 35.2 % (40-54); Lymphocyte # 0.54 X10^3/ul (4.0); Lymphocyte % 7.4 % (19-41); Mean Corp Hgb Conc 31.3 g/dL (32-36); Mean Corpuscular Hgb 31.3 pg (27.0-32.0); Mean Platelet Vol. 10.2 fl (6.2-12.0); Monocyte# 0.09 X10^3/uL; Monocyte% 1.2 % (0-10); NRBC Flagged by Analyzer 0 % (0-5); Neutrophil # 6.65 X10^3/uL (2.7-7.7); Neutrophil % 90.6 % (47-70); POSITIVE DIFFERENTIAL YES; Platelet Count 132 K/mm3 (150-450); RBC Distribution Width SD 51.3 fl (35.1-43.9); Red Blood Count 3.52 M/mm3 (4.6-6.2); White Blood Count 7.3 K/mm3 (4.4-11.0)
[2019-05-26 04:31] LABS: Differential Indicated SCAN CRITERIA MET
[2019-05-26 04:41] LABS: Anion Gap 8 (5-15); BUN 20 mg/dL (7-18); BUN/Creat Ratio 14.4 RATIO (10-20); Calcium,Total 8.6 mg/dL (8.5-10.1); Chloride 105 mmol/L (98-107); Creatinine, Serum 1.39 mg/dL (0.70-1.30); EST Glomerular Filtration Rate 53 mL/min (>60); Est Glom Filt Rate - Afr Amer 64 mL/min (>60); Glucose 164 mg/dL (74-106); Magnesium 1.9 mg/dL (1.6-2.6); Potassium 4.6 mmol/L (3.5-5.1); Sodium Level 141 mmol/L (136-145); Thyroid Stim Hormone (TSH) 0.99 uIU/mL (0.358-3.74)
--- NOTE | 2019-05-26 05:55 | EKG12_ITS ---
Test Reason : AM EKG Blood Pressure : / mmHG Vent. Rate : 082 BPM Atrial Rate : 082 BPM P-R Int : 180 ms QRS Dur : 102 ms QT Int : 434 ms P-R-T Axes : 023 -20 067 degrees QTc Int : 507 ms Normal sinus rhythm Low voltage QRS Inferior infarct , age undetermined Prolonged QT Abnormal ECG Confirmed by ELEAZAR RODRIGUEZ, NIRMAL ([id number]), tape editor DELORES JONES ([id number]) on 06/05/2019 12:04:25 PM Referred By: Rogelio Green Confirmed By:NIRMAL BUSH MD
[2019-05-26] MEDS: guaiFENesin 1,200 MG Tablet 1200 MG PO ×2 (07:38→21:27)
[2019-05-26] MEDS: Amiodarone 200 MG Tablet 100 MG PO (07:38)
[2019-05-26] MEDS: Multivitamins,Ther W-Minerals Tablet 1 TABLET PO (07:38)
[2019-05-26] MEDS: Ascorbic Acid 500 MG Tablet PO (07:38)
--- NOTE | 2019-05-26 07:38 | PN_ITS ---
Subjective: The patient was seen and examined at the bedside this morning. Events from the last 24 hours have been reviewed. The patient is currently afebrile, hemodynamically stable and maintaining appropriate oxygen saturations on 3 L/min via nasal cannula. Objective: The patient's most recent lab work, culture data and imaging studies have all been personally reviewed. CTA chest revealed mediastinal adenopathy along with a right hilar mass, bronchiectasis and nodular density in the right upper lobe. A right pleural effusion was also noted. Respiratory viral panel was negative. Strep and urine Legionella antigens were negative. Blood and sputum cultures are pending. General: Alert, Oriented x3, Cooperative, No apparent distress HEENT: Atraumatic, PERRLA, Normocephalic Oral: No Gingival or Mucosal Lesions/ Ulcerations Neck: Supple, No Nodes, Trachea Midline Lungs: Diminished, Rales, Wheezes Cardiovascular: Regular rate, Regular Rhythm, Normal S1, Normal S2 Abdomen: Bowel Sounds Present, Soft, Non Tender Extremities: No clubbing, No cyanosis, No edema Skin: No breakdown Musculoskeletal: No Tenderness to Palpation of Joints or Extremities Lymphatic: No Cervical, Supraclavicular, or Inguinal Adenopathy Neurological: Cranial nerves II-XII grossly intact, Neuro grossly intact Psych/Mental Status: Normal Affect, Appropriate Vital Signs Temp Pulse Resp BP Pulse Ox 97.4 F L 80 23 H 107/77 95 05/26/19 01:00 05/26/19 06:00 05/26/19 06:00 05/26/19 06:00 05/26/19 06:00 Oxygen Flow Rate (L/min) 3 Oxygen Delivery Method Nasal Cannula Weight: 214 lb 15.211 oz Body Mass Index (BMI) 30.4 Intake and Output for Last 24 Hours 05/24/19 05/25/19 05/26/19 23:59 23:59 23:59 Intake Total 1145 / 1145 170 / 170 Output Total 300 / 300 250 / 250 Balance 845 / 845 -80 / -80 Labs (Last 48 Hours) 05/25/19 05/25/19 05/25/19 07:50 07:50 07:50 WBC 7.1 RBC 3.82 L Hgb 12.0 L Hct 38.2 L MCV 100.0 H MCH 31.4 MCHC 31.4 L RDW Std Deviation 51.0 H RDW Coeff of Jamie 14.0 Plt Count 145 L MPV 10.0 Immature Gran % (Auto) 0.400 Neut % (Auto) 69.9 Lymph % (Auto) 19.5 [place] % (Auto) 8.0 Eos % (Auto) 1.6 Baso % (Auto) 0.6 Absolute Neuts (auto) 5.0 Absolute Lymphs (auto) 1.38 Nucleated RBC % 0 PT INR Sodium 140 Potassium 4.0 Chloride 107 Carbon Dioxide 30.0 Anion Gap 3 L BUN 18 Creatinine 1.09 Estim Creat Clear Calc 63.25 Est GFR (MDRD) Af Amer 85 Est GFR (MDRD) Non-Af 71 BUN/Creatinine Ratio 16.5 Glucose 122 H Lactic Acid 1.2 Calcium 9.1 Magnesium Total Bilirubin Direct Bilirubin AST ALT Alkaline Phosphatase Troponin I < 0.015 C-React Prot Ext Range B-Natriuretic Peptide Total Protein Albumin Globulin TSH Urine Color Urine Clarity Urine pH Ur Specific [place] Urine Protein Urine Glucose (UA) Urine Ketones Urine Occult Blood Urine Nitrite Urine Bilirubin Urine Urobilinogen Ur Leukocyte Esterase Urine RBC Urine WBC Ur Squamous Epith Cells Urine Bacteria Urine Mucus MRSA (PCR) 05/25/19 05/25/19 05/25/19 07:50 07:50 07:50 WBC RBC Hgb Hct MCV MCH MCHC RDW Std Deviation RDW Coeff of Jamie Plt Count MPV Immature Gran % (Auto) Neut % (Auto) Lymph % (Auto) [place] % (Auto) Eos % (Auto) Baso % (Auto) Absolute Neuts (auto) Absolute Lymphs (auto) Nucleated RBC % PT 15.2 H INR 1.2 Sodium Potassium Chloride Carbon Dioxide Anion Gap BUN Creatinine Estim Creat Clear Calc Est GFR (MDRD) Af Amer Est GFR (MDRD) Non-Af BUN/Creatinine Ratio Glucose Lactic Acid Calcium Magnesium Total Bilirubin 0.40 Direct Bilirubin 0.13 AST 16 ALT 24 Alkaline Phosphatase 70 Troponin I C-React Prot Ext Range 26.00 H B-Natriuretic Peptide 174.6 H Total Protein 6.8 Albumin 3.2 Globulin 3.6 TSH Urine Color Urine Clarity Urine pH Ur Specific [place] Urine Protein Urine Glucose (UA) Urine Ketones Urine Occult Blood Urine Nitrite Urine Bilirubin Urine Urobilinogen Ur Leukocyte Esterase Urine RBC Urine WBC Ur Squamous Epith Cells Urine Bacteria Urine Mucus MRSA (PCR) 05/25/19 05/25/19 05/25/19 14:35 14:55 17:20 WBC RBC Hgb Hct MCV MCH MCHC RDW Std Deviation RDW Coeff of Jamie Plt Count MPV Immature Gran % (Auto) Neut % (Auto) Lymph % (Auto) [place] % (Auto) Eos % (Auto) Baso % (Auto) Absolute Neuts (auto) Absolute Lymphs (auto) Nucleated RBC % PT INR Sodium Potassium Chloride Carbon Dioxide Anion Gap BUN Creatinine Estim Creat Clear Calc Est GFR (MDRD) Af Amer Est GFR (MDRD) Non-Af BUN/Creatinine Ratio Glucose Lactic Acid Calcium Magnesium Total Bilirubin Direct Bilirubin AST ALT Alkaline Phosphatase Troponin I C-React Prot Ext Range B-Natriuretic Peptide 169.5 H Total Protein Albumin Globulin TSH Urine Color Yellow Urine Clarity Clear Urine pH 5.0 Ur Specific [place] 1.020 Urine Protein 30 H Urine Glucose (UA) Normal Urine Ketones 5 H Urine Occult Blood 50 H Urine Nitrite Negative Urine Bilirubin Negative Urine Urobilinogen Normal Ur Leukocyte Esterase 100 H Urine RBC 0-5 SEEN Urine WBC 0-5 SEEN Ur Squamous Epith Cells 0 SEEN Urine Bacteria 0 SEEN Urine Mucus 0 SEEN MRSA (PCR) Negative 05/26/19 05/26/19 04:05 04:05 WBC 7.3 RBC 3.52 L Hgb 11.0 L Hct 35.2 L MCV 100.0 H MCH 31.3 MCHC 31.3 L RDW Std Deviation 51.3 H RDW Coeff of Jamie 14.0 Plt Count 132 L MPV 10.2 Immature Gran % (Auto) 0.700 Neut % (Auto) 90.6 H Lymph % (Auto) 7.4 L [place] % (Auto) 1.2 Eos % (Auto) 0.0 Baso % (Auto) 0.1 Absolute Neuts (auto) 6.7 Absolute Lymphs (auto) 0.54 L Nucleated RBC % 0 PT INR Sodium 141 Potassium 4.6 Chloride 105 Carbon Dioxide 28.0 Anion Gap 8 BUN 20 H Creatinine 1.39 H Estim Creat Clear Calc 49.60 Est GFR (MDRD) Af Amer 64 Est GFR (MDRD) Non-Af 53 L BUN/Creatinine Ratio 14.4 Glucose 164 H Lactic Acid Calcium 8.6 Magnesium 1.9 Total Bilirubin Direct Bilirubin AST ALT Alkaline Phosphatase Troponin I C-React Prot Ext Range B-Natriuretic Peptide Total Protein Albumin Globulin TSH 0.99 Urine Color Urine Clarity Urine pH Ur Specific [place] Urine Protein Urine Glucose (UA) Urine Ketones Urine Occult Blood Urine Nitrite Urine Bilirubin Urine Urobilinogen Ur Leukocyte Esterase Urine RBC Urine WBC Ur Squamous Epith Cells Urine Bacteria Urine Mucus MRSA (PCR) Microbiology 05/25/19 14:05 Mucosa - Nasopharyngeal Respiratory Panel (PCR) - Final 05/25/19 17:20 Urine, Clean Catch Streptococcus pneumoniae Antigen (M - Final 05/25/19 17:20 Urine, Clean Catch Legionella Antigen - Final Clinical Impression(s) from Imaging Studies Chest X-Ray 05/25/19 07:32 IMPRESSION: New right pleural effusion with underlying infiltration and/or atelectasis. Increased markings at the left lung base with blunting of the left costophrenic angle. Electronically Signed: Miguel Chacon, at 8:38 EST , Service support , Chest X-Ray 05/25/19 08:32 IMPRESSION: Bilateral pleural effusions. Electronically Signed: Miguel Chacon, at 9:05 EST , Service support , Chest CTA 05/25/19 09:12 IMPRESSION: Large right hilar mass with right pleural effusion and infiltration in the right lower lobe. 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 Mediastinal lymphadenopathy. Pleural thickening on the left side with evidence of plaque calcification. Cystic nodule in the spleen. Electronically Signed: Miguel Chacon, at 10:29 EST , Service support , Medical Necessity - Tobacco Use Smoking Status: Former smoker Assessment/Plan All Active Problems (Last Reviewed 04/20/19 @ 15:02 by Cheri Vo) Community-acquired pneumonia (Acute) Acute and chronic respiratory failure with hypoxia (Acute) Chest pain at rest (Acute) Bradycardia (Resolved) Chest pain (Resolved) RECOMMENDATIONS: 1. Continue broad-spectrum antimicrobials, pending infectious work-up. 2. Await oncology evaluation. 3. Echocardiogram is pending. 4. Continue to wean supplemental oxygen as tolerated. 5. Continue to hold aspirin and Plavix, given tentative plans to perform thoracentesis next week. IMPRESSIONS: 1. Acute hypoxemic respiratory failure While the patient does have a history of a moderate mixed ventilatory defect, his radiographic findings noted on CTA chest are concerning for underlying progression of his lung malignancy, coupled with what appears to be a pulmonary infectious process and new right-sided pleural effusion. The patient's effusion may be secondary to infectious versus malignant etiologies. However, at the current time, the patient's use of aspirin and Plavix would preclude a thoracentesis from being performed. For now, the patient will be continued on broad-spectrum antimicrobials with vancomycin and Zosyn. Infectious work-up is pending. Supplemental oxygen will be weaned to maintain saturations at or above 90%. Continue bronchodilators and IV steroids. 2. 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 Ayon. Oncology has been consulted to assist with management. 3. History of coronary artery disease/paroxysmal atrial fibrillation/hyperlipidemia The patient's home aspirin and Plavix are going to be held, should thoracentesis need to be performed. 4. CODE status: Discussed CODE status at length including difference between FULL code, DNR-CCA and DNR-CC status. Following discussions about the differences in these status, patient requested full CODE STATUS. This note was generated with [email or web address] software. It may contain incorrect words, spelling, and punctuation that were not noted in checking the note before signing. Code Visit Inpatient E&M: 87308 [facility] L[facility]
[2019-05-26] MEDS: Metoprolol Tartrate 50 MG Tablet PO ×2 (07:40→21:29)
[2019-05-26] MEDS: Lactated Ringers 1,000 ML 125 ML IV (11:25)
[2019-05-26 12:00] LABS: Bedside Glucose 185 mg/dL (70-110)
--- NOTE | 2019-05-26 12:16 | CON.PCM_ITS ---
Consult Referring Physician: Dr. Sanaz Das. Consult Results: NSCLC, SCLC, R Pleural effusion. Subjective Date of Service:: 05/26/19 Chief Complaint: SOB, Coughing History of Present Illness: 73y.o.man was diagnosed with small cell lung cancer, limited disease (T2, N2, M0) on 03/25/2016. He was treated with combined chemotherapy and radiation therapy. He received 4 cycles of cisplatin and etoposide from 04/21/2016 thr ough 07/01/2016. Therapy was complicated by pancytopenia, DVT of the right upper extremity associated with the port, and radiation esophagitis. He had a partial response and was referred for prophylactic cranial irradiation and had 10 treatments. He had a PET CT scan on 09/28/2016 which showed new L hypermetabolic lesion. He was referred for biopsy but the lesion resolved. He developed Encephalopathy associated with lethargy, sleeping most of the day. MRI brain on 12/30/2016 showed white matter changes, he was started on Decadron and went to [facility] for neurology evaluation. He had PT and improved. CT on 10/03/2018 showed increasing R lung nodule. PET/CT on 10/24/2018 showed hypermetabolic activities in R upper lobe and mediastinum/R hilar area. 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 Was considered a poor candidate for surgery or radiation. Port was placed on 11/15/2018. Started chemotherapy with Carboplatin and Gemzar on 11/17/2018. Care complicated by neutropenic fever and pneumonia after cycle 1. Gemcitabine attenuated to 800 mg/m2 with cycle [address] scan done on 01/02/2019 shows stable disease. Cycle D8 Gemzar was held last week because of thrombocytopenia. Finished C4D1 on 02/08/2019. Did not get C4D8 Gemzar because of persistent thrombocytopenia. CT 04/11/2019 showed development of right hilar adenopathy and enlarging mediastinal adenopathy. He was on a break from chemotherapy. He was admitted on 05/25/2019 with cough with sputum production, increasing SOB and now being treated for Pneumonia, Pleural effusion. CTA chest revealed mediastinal adenopathy along with a right hilar mass, bronchiectasis and nodular density in the right upper lobe. Past Medical History: Chronic Problems (Last Reviewed 04/20/19 @ 15:02 by Cheri Vo) Thrombocytopenia (Chronic) Anemia (Chronic) Gram-negative pneumonia (Chronic) Pancytopenia (Chronic) Neutropenic fever (Chronic) Right upper lobe pulmonary nodule (Chronic) Non-small cell carcinoma of left lung, stage 3 (Chronic) Paroxysmal atrial fibrillation (Chronic) Atherosclerotic heart disease of [place] coronary artery without angina pectoris (Chronic) PTCA/stent of the mid LAD, prox 1st diag, prox RCA 08/13/10; PTCA/BETO of the Ostial/Prox 1st diag 12/15/16 Dyspnea (Chronic) Fatigue (Chronic) Wheezing (Chronic) Long-term use of high-risk medication (Chronic) Primary small cell malignant neoplasm of lung, stage 3 (Chronic) Acute DVT (deep venous thrombosis) (Chronic) Nocturnal hypoxia (Chronic) Radiation esophagitis (Chronic) HLD (hyperlipidemia) (Chronic) Small cell lung cancer (Chronic) History of coronary artery stent placement (Chronic) PTCA/stent of the mid LAD, prox 1st diag, prox RCA 08/13/10; PTCA/BETO of the Ostial/Prox 1st diag 12/15/16 Obesity (BMI 30-39.9) (Chronic) Smoking addiction (Chronic) COPD (chronic obstructive pulmonary disease) (Chronic) HTN (hypertension) (Chronic) Past Medical/Surgical History: Past Medical History - Most Recent Inpatient Visit Past Medical History Start: 05/25/19 12:15 Text: Status: Complete Freq: ONCE Protocol: Document 05/25/19 12:37 NICO (Rec: 05/25/19 12:41 NICO [id number]) BMI Required to complete PMH What is Patient's BMI 30.4 Past Medical History Unable History Recalled Yes Query Text:Pt Unable/Family Not Present Neurologic Medical History Hx Stroke/TIA No Hx Dementia/Alzheimer's No Hx Parkinson's Disease No Hx Seizures No Hx Multiple Sclerosis No Hx Migraines No Cardiac Medical History VTE Present on Admission No Hx of Deep Vein Thrombosis/VTE/PE Yes: clot near chemo port in Right shoulder Hx Hypertension Yes: controlled with med Hx Chest Pain/Angina Yes: only to cough with recent cold Hx Heart Attack No Hx Cardiac Surgery/Stents/Etc. Yes: x5 stents Hx Heart Failure No Hx Pacemaker/AICD No Hx Irregular Heartbeat and/or Afib Yes: afib/follows with whg/ last visit 06/2018 Hx Anticoagulant Therapy Yes: aspirin, plavix Query Text:(Coumadin, Aspirin, Plavix, Xarelto, etc.) Hx Pain in Legs when Walking/Leg Cramps No Respiratory Medical History Hx COPD Yes: hx lung cancer Hx Emphysema No Hx Smoking Yes: quit 3 yrs ago/ 2ppds 51 yrs Smoking Status Former smoker Hx Smoking Cessation Date 05/24/16 Hx Smoking Cessation Counseling No Hx Smoking Exposure No Hx Tobacco Use in last 12 months No Hx of Pipe Smoking No Hx Sleep Apnea No CPAP No Do you snore loudly (louder than talking No or can be heard through closed doors)? Do you often feel tired/ fatigued/ No sleepy during daytime? Has anyone observed you stop breathing No during sleep? STOP Results Negative GI Medical History Hx Ulcer No Hx Hepatitis No Hx Cirrhosis No Hx GI Bleed No Hx Unplanned Weight Loss No Genitourinary Medical History Indwelling Catheter in Place on Arrival/ No Admission Hx Renal Disease No Hx Dialysis No Musculoskeletal History Hx Arthritis No Hx Rheumatoid Arthritis No Endocrine Medical History Hx Diabetes No Hx Thyroid Disease No: abnormal lab at this time Hematologic Medical History Hx of Blood Transfusion Yes Hx of Transfusion in last 3 Months No Ever experience any problems with No transfusion(s)? Hx of Preganancy in last 3 Months N/A Nurse Filling Out Transfusion & ZBEAM Questions: Date: 05/25/19 Time: 12:37 Psycho/Social Medical History Hx Depression No Hx Anxiety No Hx Behavior Disorder No Hx Alcohol Use No Hx Substance Use No Other Medical History Hx Blood Disorders Yes: thrombocytopenia in the past Hx Anemia Yes: in the past Hx Cancer Yes: small cell lung cancer/ with radiation 2017/now with squamous cell Hx Drug Resistant Organism No Wound/Pressure Injury Present on Arrival No /Admission Query Text:If yes, chart assessment in Shift/Clinical Findings Central Line/PICC/VAD Present on Arrival Yes /Admission Risk for Readmission Number of Risk Factors 5 At Risk for Readmission Patient is At Risk For Readmission Patient is eligible for Call Back Y Past Medical History (Last Reviewed 04/20/19 @ 15:02 by Cheri Vo) Paroxysmal atrial fibrillation (Chronic) Atherosclerotic heart disease of [place] coronary artery without angina pectoris (Chronic) Dyspnea (Chronic) Fatigue (Chronic) Wheezing (Chronic) Long-term use of high-risk medication (Chronic) Primary small cell malignant neoplasm of lung, stage 3 (Chronic) Acute DVT (deep venous thrombosis) (Chronic) Nocturnal hypoxia (Chronic) Radiation esophagitis (Chronic) HLD (hyperlipidemia) (Chronic) Small cell lung cancer (Chronic) Obesity (BMI 30-39.9) (Chronic) Smoking addiction (Chronic) COPD (chronic obstructive pulmonary disease) (Chronic) HTN (hypertension) (Chronic) GERD (gastroesophageal reflux disease) (Acute) History of DVT (deep vein thrombosis) (Acute) PND (post-nasal drip) (Acute) Bradycardia (Resolved) Chest pain (Resolved) Acute cystitis (Inactive) Adjustment and management of vascular access device (Inactive) Chemotherapy induced nausea and vomiting (Inactive) DVT of upper extremity (deep vein thrombosis) (Inactive) Encephalopathy (Inactive) Lightheadedness (Inactive) Pancytopenia (Inactive) Sepsis (Inactive) Past Surgical History (Last Reviewed 04/20/19 @ 15:02 by Cheri Vo) History of coronary artery stent placement (Chronic) H/O percutaneous transluminal coronary angioplasty (Resolved) Hx of appendectomy (Resolved) Maternal Family History: Family History (Last Reviewed 04/20/19 @ 15:02 by Cheri Vo) Father Heart disease Mother Cancer Brother Diabetes Son Atrial fibrillation Family History: Cancer - Lung cancer Paternal Family History: Family History (Last Reviewed 04/20/19 @ 15:02 by Cheri Vo) Father Heart disease Mother Cancer Brother Diabetes Son Atrial fibrillation Family History: Heart Disease Sibling Family History: Family History (Last Reviewed 04/20/19 @ 15:02 by Cheri Vo) Father Heart disease Mother Cancer Brother Diabetes Son Atrial fibrillation Family History: Diabetes - Social History Smoking Status: Former smoker Allergies/Adverse Reactions: Allergy/AdvReac Type Severity Reaction Status Date / Time No Known Allergies Allergy Verified 05/25/19 07:20 Review of Systems Constitutional:: Denies: Fever, Sweats Cardiovascular:: Denies: Chest pain, Palpitations, Dyspnea on exertion, Orthopnea, PND, Shortness of breath Respiratory: Denies: Cough, Hemoptysis, Shortness of Breath, Wheezing Gastrointestinal:: Denies: Abdominal pain, Nausea, Vomiting, Diarrhea, Constipation, Hematochezia Genitourinary: Denies: Dysuria, Hematuria, 15, Flank pain Musculoskeletal:: Denies: Back pain, Myalgia, Arthralgia Skin: Denies: Rash, Skin Changes, Wounds Neurological:: Reports: Memory loss Psychiatric: Denies: Anxiety, Depression, Homicidal Ideations, Suicidal Ideations Vital Signs Height 5 ft 10.08 in Weight: 97.5 kg Weight in Pounds 215.0 lbs BMI 28.1 Pulse Ox 93 Temperature 97.9 F Pulse Rate 84 Respiratory Rate 19 Blood Pressure [BP] 114/83 Blood Pressure 114/83 Blood Pressure Position [BP] Semi-Fowlers Blood Pressure Position Semi-Fowlers - Physical Exam General: Alert, No apparent distress, - - Port R IC area HEENT: Atraumatic, PERRLA, EOMI, Normocephalic Oropharynx:: Dry mucosa Neck:: Supple, Trachea midline. Negative for: JVD, bilateral Cardiac:: Regular rate, Regular rhythm, Normal S1, Normal S2. Negative for: Murmur Lungs: Diminished, Excusion symmetrical. Negative for: Rhonchi, Wheezes Abdomen:: Bowel sounds x 4, Soft, Non-tender, Non-distended. Negative for: Hepatosplenomegaly Extremities:: Negative for: Cyanosis, Edema Neurological: Cranial nerves II-XII grossly intact Skin:: Negative for: Lesions, Rash, Petechiae, Ecchymosis Psychiatric:: Appropriate affect, Euthymic Lymphatics:: Negative for: Cervical lymphadenopathy, Supraclavicular lymphadenopathy, Axillary lymphadenopathy Laboratory Data: Microbiology 05/25/19 20:25 Gram Stain - Final Sputum, Expectorated/Coughed 05/25/19 14:05 Respiratory Panel (PCR) - Final Mucosa - Nasopharyngeal 05/25/19 17:20 Streptococcus pneumoniae Antigen (M - Final Urine, Clean Catch 05/25/19 17:20 Legionella Antigen - Final Urine, Clean Catch Laboratory Tests 05/26/19 05/26/19 05/26/19 Range/Units 11:53 04:05 04:05 WBC 7.3 (4.4-11.0) K/mm3 RBC 3.52 L (4.6-6.2) M/mm3 Hgb 11.0 L (13.0-16.5) g/dL Hct 35.2 L (40-54) % MCV 100.0 H (80-94) fL MCH 31.3 (27.0-32.0) pg MCHC 31.3 L (32-36) g/dL RDW Std Deviation 51.3 H (35.1-43.9) fl RDW Coeff of Jamie 14.0 (11.6-14.6) % Plt Count 132 L (150-450) K/mm3 MPV 10.2 (6.2-12.0) fl Immature Gran % (Auto) 0.700 (0.0-0.9) % Neut % (Auto) 90.6 H (47-70) % Lymph % (Auto) 7.4 L (19-41) % Shelby % (Auto) 1.2 (0-10) % Eos % (Auto) 0.0 (0-5) % Baso % (Auto) 0.1 (0-1) % Absolute Neuts (auto) 6.7 (2.0-7.7) X10^3/uL Absolute Lymphs (auto) 0.54 L (0.83-4.51) X10^3/uL Nucleated RBC % 0 (0-5) % PT (11.7-14.9) SECONDS INR Sodium 141 (136-145) mmol/L Potassium 4.6 (3.5-5.1) mmol/L Chloride 105 (98-107) mmol/L Carbon Dioxide 28.0 (21.0-32.0) mmol/L Anion Gap 8 (5-15) BUN 20 H (7-18) mg/dL Creatinine 1.39 H (0.70-1.30) mg/dL Estim Creat Clear Calc 49.60 ml/min Est GFR (MDRD) Af Amer 64 (>60) mL/min Est GFR (MDRD) Non-Af 53 L (>60) mL/min BUN/Creatinine Ratio 14.4 (10-20) RATIO Glucose 164 H (74-106) mg/dL Calcium 8.6 (8.5-10.1) mg/dL Magnesium 1.9 (1.6-2.6) mg/dL Total Bilirubin (0.20-1.00) mg/dL Direct Bilirubin (0.00-0.30) mg/dL AST (15-37) U/L ALT (16-61) U/L Alkaline Phosphatase (45-117) U/L C-React Prot Ext Range (0.0-3.0) mg/L B-Natriuretic Peptide (0-100) pg/mL Total Protein (6.4-8.2) g/dL Albumin (3.2-5.0) g/dL Globulin (2.2-4.2) g/dL TSH 0.99 (0.358-3.74) uIU/mL Urine Color (Yellow) Urine Clarity (Clear) Urine pH (5.0 - 8.0) Ur Specific [place] (1.002-1.030) Urine Protein (Negative) mg/dl Urine Glucose (UA) (Normal) mg/dl Urine Ketones (Negative) mg/dl Urine Occult Blood (Negative) /ul Urine Nitrite (Negative) Urine Bilirubin (Negative) mg/dL Urine Urobilinogen (Normal) mg/dl Ur Leukocyte Esterase (Negative) /ul Urine RBC (0-5) /hpf Urine WBC (0-5) /hpf Ur Squamous Epith Cells (0-5) /hpf Urine Bacteria (None Seen) /hpf Urine Mucus (<or=2+) /hpf MRSA (PCR) (Negative) POC Glucose 185 H (70-110) mg/dL 05/25/19 05/25/19 05/25/19 Range/Units 17:20 14:55 14:35 WBC (4.4-11.0) K/mm3 RBC (4.6-6.2) M/mm3 Hgb (13.0-16.5) g/dL Hct (40-54) % MCV (80-94) fL MCH (27.0-32.0) pg MCHC (32-36) g/dL RDW Std Deviation (35.1-43.9) fl RDW Coeff of Jamie (11.6-14.6) % Plt Count (150-450) K/mm3 MPV (6.2-12.0) fl Immature Gran % (Auto) (0.0-0.9) % Neut % (Auto) (47-70) % Lymph % (Auto) (19-41) % Shelby % (Auto) (0-10) % Eos % (Auto) (0-5) % Baso % (Auto) (0-1) % Absolute Neuts (auto) (2.0-7.7) X10^3/uL Absolute Lymphs (auto) (0.83-4.51) X10^3/uL Nucleated RBC % (0-5) % PT (11.7-14.9) SECONDS INR Sodium (136-145) mmol/L Potassium (3.5-5.1) mmol/L Chloride (98-107) mmol/L Carbon Dioxide (21.0-32.0) mmol/L Anion Gap (5-15) BUN (7-18) mg/dL Creatinine (0.70-1.30) mg/dL Estim Creat Clear Calc ml/min Est GFR (MDRD) Af Amer (>60) mL/min Est GFR (MDRD) Non-Af (>60) mL/min BUN/Creatinine Ratio (10-20) RATIO Glucose (74-106) mg/dL Calcium (8.5-10.1) mg/dL Magnesium (1.6-2.6) mg/dL Total Bilirubin (0.20-1.00) mg/dL Direct Bilirubin (0.00-0.30) mg/dL AST (15-37) U/L ALT (16-61) U/L Alkaline Phosphatase (45-117) U/L C-React Prot Ext Range (0.0-3.0) mg/L B-Natriuretic Peptide 169.5 H (0-100) pg/mL Total Protein (6.4-8.2) g/dL Albumin (3.2-5.0) g/dL Globulin (2.2-4.2) g/dL TSH (0.358-3.74) uIU/mL Urine Color Yellow (Yellow) Urine Clarity Clear (Clear) Urine pH 5.0 (5.0 - 8.0) Ur Specific [place] 1.020 (1.002-1.030) Urine Protein 30 H (Negative) mg/dl Urine Glucose (UA) Normal (Normal) mg/dl Urine Ketones 5 H (Negative) mg/dl Urine Occult Blood 50 H (Negative) /ul Urine Nitrite Negative (Negative) Urine Bilirubin Negative (Negative) mg/dL Urine Urobilinogen Normal (Normal) mg/dl Ur Leukocyte Esterase 100 H (Negative) /ul Urine RBC 0-5 SEEN (0-5) /hpf Urine WBC 0-5 SEEN (0-5) /hpf Ur Squamous Epith Cells 0 SEEN (0-5) /hpf Urine Bacteria 0 SEEN (None Seen) /hpf Urine Mucus 0 SEEN (<or=2+) /hpf MRSA (PCR) Negative (Negative) POC Glucose (70-110) mg/dL 05/25/19 05/25/19 Range/Units 07:50 07:50 WBC (4.4-11.0) K/mm3 RBC (4.6-6.2) M/mm3 Hgb (13.0-16.5) g/dL Hct (40-54) % MCV (80-94) fL MCH (27.0-32.0) pg MCHC (32-36) g/dL RDW Std Deviation (35.1-43.9) fl RDW Coeff of Jamie (11.6-14.6) % Plt Count (150-450) K/mm3 MPV (6.2-12.0) fl Immature Gran % (Auto) (0.0-0.9) % Neut % (Auto) (47-70) % Lymph % (Auto) (19-41) % [place] % (Auto) (0-10) % Eos % (Auto) (0-5) % Baso % (Auto) (0-1) % Absolute Neuts (auto) (2.0-7.7) X10^3/uL Absolute Lymphs (auto) (0.83-4.51) X10^3/uL Nucleated RBC % (0-5) % PT 15.2 H (11.7-14.9) SECONDS INR 1.2 Sodium (136-145) mmol/L Potassium (3.5-5.1) mmol/L Chloride (98-107) mmol/L Carbon Dioxide (21.0-32.0) mmol/L Anion Gap (5-15) BUN (7-18) mg/dL Creatinine (0.70-1.30) mg/dL Estim Creat Clear Calc ml/min Est GFR (MDRD) Af Amer (>60) mL/min Est GFR (MDRD) Non-Af (>60) mL/min BUN/Creatinine Ratio (10-20) RATIO Glucose (74-106) mg/dL Calcium (8.5-10.1) mg/dL Magnesium (1.6-2.6) mg/dL Total Bilirubin 0.40 (0.20-1.00) mg/dL Direct Bilirubin 0.13 (0.00-0.30) mg/dL AST 16 (15-37) U/L ALT 24 (16-61) U/L Alkaline Phosphatase 70 (45-117) U/L C-React Prot Ext Range 26.00 H (0.0-3.0) mg/L B-Natriuretic Peptide (0-100) pg/mL Total Protein 6.8 (6.4-8.2) g/dL Albumin 3.2 (3.2-5.0) g/dL Globulin 3.6 (2.2-4.2) g/dL TSH (0.358-3.74) uIU/mL Urine Color (Yellow) Urine Clarity (Clear) Urine pH (5.0 - 8.0) Ur Specific [place] (1.002-1.030) Urine Protein (Negative) mg/dl Urine Glucose (UA) (Normal) mg/dl Urine Ketones (Negative) mg/dl Urine Occult Blood (Negative) /ul Urine Nitrite (Negative) Urine Bilirubin (Negative) mg/dL Urine Urobilinogen (Normal) mg/dl Ur Leukocyte Esterase (Negative) /ul Urine RBC (0-5) /hpf Urine WBC (0-5) /hpf Ur Squamous Epith Cells (0-5) /hpf Urine Bacteria (None Seen) /hpf Urine Mucus (<or=2+) /hpf MRSA (PCR) (Negative) POC Glucose (70-110) mg/dL Diagnostic Data: Diagnostic Data Chest X-Ray 05/25/19 08:32 IMPRESSION: Bilateral pleural effusions. Electronically Signed: Miguel Chacon, at 9:05 EST , Service support , Chest CTA 05/25/19 09:12 IMPRESSION: Large right hilar mass with right pleural effusion and infiltration in the right lower lobe. 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 Mediastinal lymphadenopathy. Pleural thickening on the left side with evidence of plaque calcification. Cystic nodule in the spleen. Electronically Signed: Miguel Chacon, at 10:29 EST , Service support , Assessment and Plan NSCLC-squamous cell type, Progressive disease with increase in Pleural effusion and mediastinal nodes. On admission for Respiratory failure, Pneumonia. Radiation Pneumonitis R/O Post obstructive pneumonia. SCLC. Post Radiation Encephalopathy. Prognosis is poor but may be months. Pt is still interested in therapy. Suggestion: Continue Antibiotics and supportive care for Pneumonia,COPD. Thoracentesis to evaluate pleural fluid-cytology. If stable, can be discharged home for outpatient follow up at [facility]. Will not follow further during this admission. Thanks. Medications: Medications Added to Medication List This Visit Category Date Time Status Amiodarone HCl [Cordarone] Med 05/26/19 10:00 Active 100 mg PO DAILY Ascorbic Acid [Vitamin C] Med 05/26/19 10:00 Active 500 mg PO DAILY Lactated Ringers 1,000 ml Med 05/26/19 07:40 Active IV 125 mls/hr Multivitamins,Ther W-Minerals [Multivitamin With Med 05/26/19 08:00 Active Minerals] 1 tablet PO DAILY@0800 Primary Care Provider: Rogelio Green DO Referring Provider: - Problem List (1) Community-acquired pneumonia Status: Acute (2) Non-small cell carcinoma of left lung, stage 3 Status: Chronic (3) Small cell lung cancer Status: Chronic (4) COPD (chronic obstructive pulmonary disease) Status: Chronic Code Visit Office Visits / Consults: [id number] IP Consult L5
--- NOTE | 2019-05-26 13:06 | CASEMGMT ---
RNCM Assessment Intro role of CM to patient's . Pt was receiving PT/OT evaluations. Per pt is failry independent @ home, but she does assist him with care during chemo treatments. No further needs identified for home at this time. Presentation: pneumonia PCP: Dr. Green Specialists: Dr. Ayon [facility]acy: [facility] Insurance: MMO/MCR Prescription Benefit: yes LNOK: Living Arrangements: Lives in two story home. states she assists with daily care. see PT/OT evaluation notes for details on other equipment and care notes Transportation: drives DME: cane. oxygen through [employer]. pt wears prn at home, has concentrator, portability. No other DME needs per . HHC: none and declined needing. Patient DC goals: Home on discharge DC PLAN: Home on dc. Collin WHEELER RN ACM
--- NOTE | 2019-05-26 18:55 | PN_ITS ---
Patient Problems: Active and Suspected Problems (Last Reviewed 04/20/19 @ 15:02 by Cheri Vo) Community-acquired pneumonia (Acute) Acute and chronic respiratory failure with hypoxia (Acute) Subjective: Patient was seen and examined today in the ICU, he is currently comfortable on 3 L via nasal cannula. He does not complain of any shortness of breath or chest discomfort. - Physical Exam Vitals/I&O's: Vital Signs Temp Pulse Resp BP Pulse Ox 98.1 F 79 20 H 108/78 98 05/26/19 16:00 05/26/19 18:00 05/26/19 18:00 05/26/19 18:00 05/26/19 18:00 Oxygen Flow Rate (L/min) 3 Oxygen Delivery Method Nasal Cannula Weight: 97.5 kg Body Mass Index (BMI) 30.4 Intake and Output for Last 24 Hours 05/24/19 05/25/19 05/26/19 23:59 23:59 23:59 Intake Total 1145 / 1145 1382.32 / 1382.32 Output Total 300 / 300 650 / 650 Balance 845 / 845 732.32 / 732.32 General: Alert, Oriented x3, Cooperative, No apparent distress, Well developed HEENT: Atraumatic, PERRLA, EOMI, Normocephalic Oral: Moist Mucosa Neck: Supple, No JVD, Negative Carotid Bruits, Trachea Midline, Thyroid Normal Size and Texture Lungs: Diminished - Diminished breath sounds over the bases bilaterally right greater than left, Wheezes - Scattered expiratory wheezes are noted bilaterally Cardiovascular: Regular rate, No murmurs Abdomen: Bowel Sounds Present, Soft, Non Tender, Non-Distended Extremities: No clubbing, No cyanosis, No edema, Capillary Refill Less than 3 Seconds Skin: No rashes, No breakdown Musculoskeletal: No Tenderness to Palpation of Joints or Extremities Neurological: Cranial nerves II-XII grossly intact, Neuro grossly intact, Sensory exam intact to light touch and pain, Coordination normal Psych/Mental Status: Normal Affect, Appropriate, Alert and oriented to time, place, person, mood and affect Microbiology Past 72 Hours 05/25/19 20:25 Sputum, Expectorated/Coughed Gram Stain - Final 05/25/19 20:25 Sputum, Expectorated/Coughed Respiratory Culture - Preliminary Appears to be normal respiratory brandon. Further studies to follow. 05/25/19 14:05 Mucosa - Nasopharyngeal Respiratory Panel (PCR) - Final 05/25/19 17:20 Urine, Clean Catch Streptococcus pneumoniae Antigen (M - Final 05/25/19 17:20 Urine, Clean Catch Legionella Antigen - Final Laboratory Results 05/26/19 04:05: WBC 7.3, RBC 3.52 L, Hgb 11.0 L, Hct 35.2 L, MCV 100.0 H, MCH 31.3, MCHC 31.3 L, RDW Std Deviation 51.3 H, RDW Coeff of Jamie 14.0, Plt Count 132 L, MPV 10.2, Immature Gran % (Auto) 0.700, Neut % (Auto) 90.6 H, Lymph % (Auto) 7.4 L, Sherman % (Auto) 1.2, Eos % (Auto) 0.0, Baso % (Auto) 0.1, Absolute Neuts (auto) 6.7, Absolute Lymphs (auto) 0.54 L, Nucleated RBC % 0 05/26/19 04:05: Sodium 141, Potassium 4.6, Chloride 105, Carbon Dioxide 28.0, Anion Gap 8, BUN 20 H, Creatinine 1.39 H, Estim Creat Clear Calc 49.60, Est GFR (MDRD) Af Amer 64, Est GFR (MDRD) Non-Af 53 L, BUN/Creatinine Ratio 14.4, Glucose 164 H, Calcium 8.6, Magnesium 1.9, TSH 0.99 05/26/19 11:53: POC Glucose 185 H Current Medications Acetaminophen (Tylenol) 650 mg PO Q6H PRN PRN PRN Reason: Pain Score 1-3/Temp > 100.7 F Albuterol Sulfate (Ventolin Aerosols) 2.5 mg INHALATION Q2H PRN PRN PRN Reason: SOB/Wheezing Last Admin: 05/26/19 18:37 Dose: 2.5 mg Documented by: Amiodarone HCl (Cordarone) 100 mg PO DAILY [facility] Last Admin: 05/26/19 07:38 Dose: 100 mg Documented by: Ascorbic Acid (Vitamin C) 500 mg PO DAILY [facility] Last Admin: 05/26/19 07:38 Dose: 500 mg Documented by: Atorvastatin Calcium (Lipitor) 10 mg PO QHS [facility] Last Admin: 05/25/19 21:48 Dose: 10 mg Documented by: Dextrose (D50w Syringe) 0 gm IV X1 PRN; Protocol PRN Reason: Hypoglycemia Glucagon () 1 mg IM .X1 PRN PRN Reason: Hypoglycemia Guaifenesin (Mucinex) 1,200 mg PO BID [facility] Last Admin: 05/26/19 07:38 Dose: 1,200 mg Documented by: Heparin Sodium (Beef Lung) () 50 units IV UD PRN PRN Reason: R Port Heparin Flush Vancomycin IV Pharmacy to Dose (1 ea/ Sodium Chloride) 500 mls @ 250 mls/hr IV PRN PRN; Protocol Vancomycin HCl 1,250 mg/ (Sodium Chloride) 275 mls @ 167 mls/hr IV Q12H [facility] Last Admin: 05/26/19 17:47 Dose: 167 mls/hr Documented by: Sodium Chloride () 250 mls @ 15 mls/hr IV .[id number] PRN PRN Reason: Saline Flush Piperacillin Sod/Tazobactam (Sod 3.375 gm/ Sodium Chloride) 50 mls @ 12.5 mls/hr IV Q8 [facility] Last Admin: 05/26/19 13:52 Dose: 12.5 mls/hr Documented by: Lactated Ringer's () 1,000 mls @ 125 mls/hr IV .Q8H [facility] Last Infusion: 05/26/19 17:47 Dose: 125 mls/hr Documented by: Methylprednisolone (Solu-Medrol) 40 mg IV Q8 [facility] Last Admin: 05/26/19 13:52 Dose: 40 mg Documented by: Metoprolol Tartrate (Lopressor (Beta Sukhwinder)) 50 mg PO BID [facility] Last Admin: 05/26/19 07:40 Dose: 50 mg Documented by: Multivitamins/Minerals (Multivitamin With Minerals) 1 tablet PO DAILY@0800 [facility] Last Admin: 05/26/19 07:38 Dose: 1 tablet Documented by: Nitroglycerin (Nitrostat) 0.4 mg SUBLINGUAL Q5M PRN PRN Reason: chest pain Oxycodone HCl (Oxyir) 5 mg PO Q4H PRN PRN PRN Reason: Pain Score 4-10/10 Prochlorperazine Edisylate (Compazine Iv) 5 mg IV Q4H PRN PRN PRN Reason: Breakthrough Nausea/Vomiting Promethazine HCl (Phenergan) 12.5 mg IV Q6H PRN PRN PRN Reason: Nausea/Vomiting Senna/Docusate Sodium (Senokot-S, Negar-Colace) 2 tablet PO BID PRN PRN PRN Reason: Constipation Sodium Chloride () 10 - 40 ml IV UD PRN PRN Reason: R Port Saline Flush Sodium Chloride (0.9% Nacl (Sterile) Posiflush) 10 - 40 ml IV UD PRN PRN Reason: Port access or dressing change Medical Necessity - Tobacco Use Smoking Status: Former smoker Assessment/Plan All Active Problems (Last Reviewed 04/20/19 @ 15:02 by Cheri Vo) Community-acquired pneumonia (Acute) Acute and chronic respiratory failure with hypoxia (Acute) Chest pain at rest (Acute) Bradycardia (Resolved) Chest pain (Resolved) #1 acute on chronic hypoxic respiratory failure-patient is currently stable on nasal cannula O2, he will be made PCU status but will remain in ICU for now #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
[2019-05-26] MEDS: Atorvastatin Calcium 10 MG Tablet PO (21:28)
[2019-05-27] VITALS (26 sets, daily range): BP systolic 97–113; BP diastolic 47–81; PULSE 68–83; RESP 16–93; TEMP 36.4–36.6; O2SAT 93–97
[2019-05-27] MEDS: Albuterol 2.5 MG/3 ML VIAL.NEB. INHALATION ×2 (01:12→23:13)
--- NOTE | 2019-05-27 06:18 | PN_ITS ---
Subjective: The patient was seen and examined at the bedside this morning. Events from the last 24 hours have been reviewed. The patient is currently afebrile, hemodynamically stable and maintaining appropriate oxygen saturations on 2 L/min via nasal cannula. The patient's dyspnea has improved. Objective: The patient's most recent lab work, culture data and imaging studies have all been personally reviewed. CTA chest revealed mediastinal adenopathy along with a right hilar mass, bronchiectasis and nodular density in the right upper lobe. A right pleural effusion was also noted. Respiratory viral panel was negative. Strep and urine Legionella antigens were negative. Blood and sputum cultures are pending. General: Alert, Cooperative, No apparent distress, - - Sitting in bedside recliner HEENT: Atraumatic, PERRLA, Normocephalic Oral: No Gingival or Mucosal Lesions/ Ulcerations Neck: Supple, No Nodes, Trachea Midline Lungs: Diminished, Rales Cardiovascular: Regular rate, Regular Rhythm, Normal S1, Normal S2, No murmurs Abdomen: Bowel Sounds Present, Soft, Non Tender Extremities: No clubbing, No cyanosis, No edema Skin: No breakdown Musculoskeletal: No Tenderness to Palpation of Joints or Extremities Lymphatic: No Cervical, Supraclavicular, or Inguinal Adenopathy Neurological: Cranial nerves II-XII grossly intact, Neuro grossly intact Psych/Mental Status: Normal Affect, Appropriate Vital Signs Temp Pulse Resp BP Pulse Ox 97.6 F L 71 16 108/69 96 05/27/19 04:00 05/27/19 06:00 05/27/19 06:00 05/27/19 06:00 05/27/19 06:00 Oxygen Flow Rate (L/min) 2 Oxygen Delivery Method Nasal Cannula Weight: 214 lb 15.211 oz Body Mass Index (BMI) 30.4 Intake and Output for Last 24 Hours 05/25/19 05/26/19 05/27/19 23:59 23:59 23:59 Intake Total 1145 / 1145 2192.74 / 2342.74 1286.17 / 1286.17 Output Total 300 / 300 650 / 800 350 / 350 Balance 845 / 845 1542.74 / 1542.74 936.17 / 936.17 Labs (Last 48 Hours) 05/25/19 05/25/19 05/25/19 07:50 07:50 07:50 WBC 7.1 RBC 3.82 L Hgb 12.0 L Hct 38.2 L MCV 100.0 H MCH 31.4 MCHC 31.4 L RDW Std Deviation 51.0 H RDW Coeff of Jamie 14.0 Plt Count 145 L MPV 10.0 Immature Gran % (Auto) 0.400 Neut % (Auto) 69.9 Lymph % (Auto) 19.5 Barry % (Auto) 8.0 Eos % (Auto) 1.6 Baso % (Auto) 0.6 Absolute Neuts (auto) 5.0 Absolute Lymphs (auto) 1.38 Nucleated RBC % 0 PT INR Sodium 140 Potassium 4.0 Chloride 107 Carbon Dioxide 30.0 Anion Gap 3 L BUN 18 Creatinine 1.09 Estim Creat Clear Calc 63.25 Est GFR (MDRD) Af Amer 85 Est GFR (MDRD) Non-Af 71 BUN/Creatinine Ratio 16.5 Glucose 122 H Lactic Acid 1.2 Calcium 9.1 Magnesium Total Bilirubin Direct Bilirubin AST ALT Alkaline Phosphatase Troponin I < 0.015 C-React Prot Ext Range B-Natriuretic Peptide Total Protein Albumin Globulin TSH Urine Color Urine Clarity Urine pH Ur Specific Foley Urine Protein Urine Glucose (UA) Urine Ketones Urine Occult Blood Urine Nitrite Urine Bilirubin Urine Urobilinogen Ur Leukocyte Esterase Urine RBC Urine WBC Ur Squamous Epith Cells Urine Bacteria Urine Mucus MRSA (PCR) POC Glucose 05/25/19 05/25/19 05/25/19 07:50 07:50 07:50 WBC RBC Hgb Hct MCV MCH MCHC RDW Std Deviation RDW Coeff of Jamie Plt Count MPV Immature Gran % (Auto) Neut % (Auto) Lymph % (Auto) Barry % (Auto) Eos % (Auto) Baso % (Auto) Absolute Neuts (auto) Absolute Lymphs (auto) Nucleated RBC % PT 15.2 H INR 1.2 Sodium Potassium Chloride Carbon Dioxide Anion Gap BUN Creatinine Estim Creat Clear Calc Est GFR (MDRD) Af Amer Est GFR (MDRD) Non-Af BUN/Creatinine Ratio Glucose Lactic Acid Calcium Magnesium Total Bilirubin 0.40 Direct Bilirubin 0.13 AST 16 ALT 24 Alkaline Phosphatase 70 Troponin I C-React Prot Ext Range 26.00 H B-Natriuretic Peptide 174.6 H Total Protein 6.8 Albumin 3.2 Globulin 3.6 TSH Urine Color Urine Clarity Urine pH Ur Specific Foley Urine Protein Urine Glucose (UA) Urine Ketones Urine Occult Blood Urine Nitrite Urine Bilirubin Urine Urobilinogen Ur Leukocyte Esterase Urine RBC Urine WBC Ur Squamous Epith Cells Urine Bacteria Urine Mucus MRSA (PCR) POC Glucose 05/25/19 05/25/19 05/25/19 14:35 14:55 17:20 WBC RBC Hgb Hct MCV MCH MCHC RDW Std Deviation RDW Coeff of Jamie Plt Count MPV Immature Gran % (Auto) Neut % (Auto) Lymph % (Auto) Barry % (Auto) Eos % (Auto) Baso % (Auto) Absolute Neuts (auto) Absolute Lymphs (auto) Nucleated RBC % PT INR Sodium Potassium Chloride Carbon Dioxide Anion Gap BUN Creatinine Estim Creat Clear Calc Est GFR (MDRD) Af Amer Est GFR (MDRD) Non-Af BUN/Creatinine Ratio Glucose Lactic Acid Calcium Magnesium Total Bilirubin Direct Bilirubin AST ALT Alkaline Phosphatase Troponin I C-React Prot Ext Range B-Natriuretic Peptide 169.5 H Total Protein Albumin Globulin TSH Urine Color Yellow Urine Clarity Clear Urine pH 5.0 Ur Specific Foley 1.020 Urine Protein 30 H Urine Glucose (UA) Normal Urine Ketones 5 H Urine Occult Blood 50 H Urine Nitrite Negative Urine Bilirubin Negative Urine Urobilinogen Normal Ur Leukocyte Esterase 100 H Urine RBC 0-5 SEEN Urine WBC 0-5 SEEN Ur Squamous Epith Cells 0 SEEN Urine Bacteria 0 SEEN Urine Mucus 0 SEEN MRSA (PCR) Negative POC Glucose 05/26/19 05/26/19 05/26/19 04:05 04:05 11:53 WBC 7.3 RBC 3.52 L Hgb 11.0 L Hct 35.2 L MCV 100.0 H MCH 31.3 MCHC 31.3 L RDW Std Deviation 51.3 H RDW Coeff of Jamie 14.0 Plt Count 132 L MPV 10.2 Immature Gran % (Auto) 0.700 Neut % (Auto) 90.6 H Lymph % (Auto) 7.4 L Barry % (Auto) 1.2 Eos % (Auto) 0.0 Baso % (Auto) 0.1 Absolute Neuts (auto) 6.7 Absolute Lymphs (auto) 0.54 L Nucleated RBC % 0 PT INR Sodium 141 Potassium 4.6 Chloride 105 Carbon Dioxide 28.0 Anion Gap 8 BUN 20 H Creatinine 1.39 H Estim Creat Clear Calc 49.60 Est GFR (MDRD) Af Amer 64 Est GFR (MDRD) Non-Af 53 L BUN/Creatinine Ratio 14.4 Glucose 164 H Lactic Acid Calcium 8.6 Magnesium 1.9 Total Bilirubin Direct Bilirubin AST ALT Alkaline Phosphatase Troponin I C-React Prot Ext Range B-Natriuretic Peptide Total Protein Albumin Globulin TSH 0.99 Urine Color Urine Clarity Urine pH Ur Specific Foley Urine Protein Urine Glucose (UA) Urine Ketones Urine Occult Blood Urine Nitrite Urine Bilirubin Urine Urobilinogen Ur Leukocyte Esterase Urine RBC Urine WBC Ur Squamous Epith Cells Urine Bacteria Urine Mucus MRSA (PCR) POC Glucose 185 H Microbiology 05/25/19 20:25 Sputum, Expectorated/Coughed Gram Stain - Final 05/25/19 20:25 Sputum, Expectorated/Coughed Respiratory Culture - Preliminary Appears to be normal respiratory brandon. Further studies to follow. 05/25/19 14:05 Mucosa - Nasopharyngeal Respiratory Panel (PCR) - Final 05/25/19 17:20 Urine, Clean Catch Streptococcus pneumoniae Antigen (M - Final 05/25/19 17:20 Urine, Clean Catch Legionella Antigen - Final Clinical Impression(s) from Imaging Studies Chest X-Ray 05/25/19 07:32 IMPRESSION: New right pleural effusion with underlying infiltration and/or atelectasis. Increased markings at the left lung base with blunting of the left costophrenic angle. Electronically Signed: Miguel Chacon, at 8:38 EST , Service support , Chest X-Ray 05/25/19 08:32 IMPRESSION: Bilateral pleural effusions. Electronically Signed: Miguel Chacon, at 9:05 EST , Service support , Chest CTA 05/25/19 09:12 IMPRESSION: Large right hilar mass with right pleural effusion and infiltration in the right lower lobe. 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 Mediastinal lymphadenopathy. Pleural thickening on the left side with evidence of plaque calcification. Cystic nodule in the spleen. Electronically Signed: Miguel Chacon, at 10:29 EST , Service support , Medical Necessity - Tobacco Use Smoking Status: Former smoker Assessment/Plan All Active Problems (Last Reviewed 04/20/19 @ 15:02 by Cheri Vo) Community-acquired pneumonia (Acute) Acute and chronic respiratory failure with hypoxia (Acute) Chest pain at rest (Acute) Bradycardia (Resolved) Chest pain (Resolved) RECOMMENDATIONS: 1. Continue antimicrobials. Vancomycin can be discontinued. 2. Continue to wean supplemental oxygen as tolerated. 3. Continue to hold aspirin and Plavix, given tentative plans to perform thoracentesis next week. 4. Encourage incentive spirometer use and mobilize patient as tolerated. IMPRESSIONS: 1. Acute hypoxemic respiratory failure While the patient does have a history of a moderate mixed ventilatory defect, his radiographic findings noted on CTA chest are concerning for underlying progression of his lung malignancy, coupled with what appears to be a pulmonary infectious process and new right-sided pleural effusion. The patient's effusion may be secondary to infectious versus malignant etiologies. However, at the current time, the patient's use of aspirin and Plavix would preclude a thoracentesis from being performed. For now, the patient will be continued on antimicrobials. Vancomycin can be discontinued from my perspective. Supplemental oxygen will be weaned to maintain saturations at or above 90%. Continue bronchodilators and IV steroids. 2. 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 Ayon. Oncology was consulted to assist with management. 3. History of coronary artery disease/paroxysmal atrial fibrillation/hyperlipidemia The patient's home aspirin and Plavix are going to be held, should thoracentesis need to be performed. 4. CODE status: Discussed CODE status at length including difference between FULL code, DNR-CCA and DNR-CC status. Following discussions about the differences in these status, patient requested full CODE STATUS. This note was generated with [employer] software. It may contain incorrect words, spelling, and punctuation that were not noted in checking the note before signing. Code Visit Inpatient E&M: 14395 Subs Hosp L2
[2019-05-27 06:29] LABS: Absolute Lymphocyte Count 0.44 X10^3/uL (0.83-4.51); Absolute Neutrophil Count 13.1 X10^3/uL (2.0-7.7); Basophil# 0.01 X10^3/uL; Basophil% 0.1 % (0-1); Hemoglobin 10.7 g/dL (13.0-16.5); Lymphocyte # 0.44 X10^3/ul (4.0); Lymphocyte % 3.2 % (19-41); Mean Corp Hgb Conc 31.5 g/dL (32-36); Mean Corpuscular Hgb 31.5 pg (27.0-32.0); Mean Platelet Vol. 10.5 fl (6.2-12.0); Monocyte# 0.29 X10^3/uL; Monocyte% 2.1 % (0-10); NRBC Flagged by Analyzer 0 % (0-5); Neutrophil # 13.06 X10^3/uL (2.7-7.7); POSITIVE DIFFERENTIAL YES; Platelet Count 143 K/mm3 (150-450); RBC Distribution Width CV 14.1 % (11.6-14.6); RBC Distribution Width SD 51.1 fl (35.1-43.9); White Blood Count 13.9 K/mm3 (4.4-11.0)
[2019-05-27 06:34] LABS: Differential Indicated SCAN CRITERIA MET
[2019-05-27 06:38] LABS: Anion Gap 8 (5-15); BUN 27 mg/dL (7-18); BUN/Creat Ratio 20.5 RATIO (10-20); Calcium,Total 8.5 mg/dL (8.5-10.1); Chloride 106 mmol/L (98-107); Creatinine, Serum 1.32 mg/dL (0.70-1.30); EST Glomerular Filtration Rate 57 mL/min (>60); Est Glom Filt Rate - Afr Amer 68 mL/min (>60); Estimated Creatinine Clearance 52.23 ml/min; Glucose 162 mg/dL (74-106); Potassium 4.6 mmol/L (3.5-5.1); Sodium Level 141 mmol/L (136-145)
[2019-05-27] MEDS: guaiFENesin 1,200 MG Tablet 1200 MG PO ×2 (09:17→21:54)
[2019-05-27] MEDS: Metoprolol Tartrate 50 MG Tablet PO ×2 (09:18→21:53)
[2019-05-27] MEDS: Amiodarone 200 MG Tablet 100 MG PO (09:18)
[2019-05-27] MEDS: Multivitamins,Ther W-Minerals Tablet 1 TABLET PO (09:19)
[2019-05-27] MEDS: Ascorbic Acid 500 MG Tablet PO (09:19)
--- NOTE | 2019-05-27 10:37 | PCM.PROGNOTE ---
Patient Problems: Active and Suspected Problems (Last Reviewed 04/20/19 @ 15:02 by Cheri Vo) Community-acquired pneumonia (Acute) Acute and chronic respiratory failure with hypoxia (Acute) Subjective: Patient seen and examined today in the ICU, he does not appear to be in any respiratory distress, he is continuing on nasal cannula O2 at 2 L/min. Not complain of any shortness of breath or chest pain. Objective: General: Alert, Oriented x3, Cooperative, No apparent distress, Well developed HEENT: Atraumatic, PERRLA, EOMI, Normocephalic Oral: Moist Mucosa Neck: Supple, No JVD, Negative Carotid Bruits, Trachea Midline, Thyroid Normal Size and Texture Lungs: Diminished - Diminished breath sounds over the bases bilaterally right greater than left, no rhonchi or wheezes are noted today Cardiovascular: Regular rate, No murmurs Abdomen: Bowel Sounds Present, Soft, Non Tender, Non-Distended Extremities: No clubbing, No cyanosis, No edema, Capillary Refill Less than 3 Seconds Skin: No rashes, No breakdown Musculoskeletal: No Tenderness to Palpation of Joints or Extremities Neurological: Cranial nerves II-XII grossly intact, Neuro grossly intact, Sensory exam intact to light touch and pain, Coordination normal Psych/Mental Status: Normal Affect, Appropriate, Alert and oriented to time, place, person, mood and affect - Physical Exam Vitals/I&O's: Vital Signs Temp Pulse Resp BP Pulse Ox 97.9 F 82 21 H 112/79 95 05/27/19 06:00 05/27/19 09:18 05/27/19 09:00 05/27/19 09:18 05/27/19 09:00 Oxygen Flow Rate (L/min) 2 Oxygen Delivery Method Nasal Cannula Weight: 97.5 kg Body Mass Index (BMI) 30.4 Intake and Output for Last 24 Hours 05/25/19 05/26/19 05/27/19 23:59 23:59 23:59 Intake Total 1145 / 1145 2192.74 / 2342.74 1440.33 / 1440.33 Output Total 300 / 300 650 / 800 350 / 350 Balance 845 / 845 1542.74 / 1542.74 1090.33 / 1090.33 Microbiology Past 72 Hours 05/25/19 20:25 Sputum, Expectorated/Coughed Gram Stain - Final 05/25/19 20:25 Sputum, Expectorated/Coughed Respiratory Culture - Preliminary Appears to be normal respiratory brandon. Further studies to follow. 05/25/19 14:05 Mucosa - Nasopharyngeal Respiratory Panel (PCR) - Final 05/25/19 17:20 Urine, Clean Catch Streptococcus pneumoniae Antigen (M - Final 05/25/19 17:20 Urine, Clean Catch Legionella Antigen - Final Laboratory Results 05/26/19 11:53: POC Glucose 185 H 05/27/19 04:20: WBC 13.9 H, RBC 3.40 L, Hgb 10.7 L, Hct 34.0 L, MCV 100.0 H, MCH 31.5, MCHC 31.5 L, RDW Std Deviation 51.1 H, RDW Coeff of Jamie 14.1, Plt Count 143 L, MPV 10.5, Immature Gran % (Auto) 0.600, Neut % (Auto) 94.0 H, Lymph % (Auto) 3.2 L, J[place] % (Auto) 2.1, Eos % (Auto) 0.0, Baso % (Auto) 0.1, Absolute Neuts (auto) 13.1 H, Absolute Lymphs (auto) 0.44 L, Nucleated RBC % 0 05/27/19 04:20: Sodium 141, Potassium 4.6, Chloride 106, Carbon Dioxide 27.0, Anion Gap 8, BUN 27 H, Creatinine 1.32 H, Estim Creat Clear Calc 52.23, Est GFR (MDRD) Af Amer 68, Est GFR (MDRD) Non-Af 57 L, BUN/Creatinine Ratio 20.5 H, Glucose 162 H, Calcium 8.5 Current Medications Acetaminophen (Tylenol) 650 mg PO Q6H PRN PRN PRN Reason: Pain Score 1-3/Temp > 100.7 F Albuterol Sulfate (Ventolin Aerosols) 2.5 mg INHALATION Q2H PRN PRN PRN Reason: SOB/Wheezing Last Admin: 05/27/19 01:12 Dose: 2.5 mg Documented by: Amiodarone HCl (Cordarone) 100 mg PO DAILY [facility] Last Admin: 05/27/19 09:18 Dose: 100 mg Documented by: Ascorbic Acid (Vitamin C) 500 mg PO DAILY [facility] Last Admin: 05/27/19 09:19 Dose: 500 mg Documented by: Atorvastatin Calcium (Lipitor) 10 mg PO QHS [facility] Last Admin: 05/26/19 21:28 Dose: 10 mg Documented by: Dextrose (D50w Syringe) 0 gm IV X1 PRN; Protocol PRN Reason: Hypoglycemia Glucagon () 1 mg IM .X1 PRN PRN Reason: Hypoglycemia Guaifenesin (Mucinex) 1,200 mg PO BID [facility] Last Admin: 05/27/19 09:17 Dose: 1,200 mg Documented by: Heparin Sodium (Beef Lung) () 50 units IV UD PRN PRN Reason: R Port Heparin Flush Sodium Chloride () 250 mls @ 15 mls/hr IV .[id number] PRN PRN Reason: Saline Flush Piperacillin Sod/Tazobactam (Sod 3.375 gm/ Sodium Chloride) 50 mls @ 12.5 mls/hr IV Q8 [facility] Last Admin: 05/27/19 06:31 Dose: 12.5 mls/hr Documented by: Methylprednisolone (Solu-Medrol) 40 mg IV Q8 [facility] Last Admin: 05/27/19 06:31 Dose: 40 mg Documented by: Metoprolol Tartrate (Lopressor (Beta Sukhwinder)) 50 mg PO BID [facility] Last Admin: 05/27/19 09:18 Dose: 50 mg Documented by: Multivitamins/Minerals (Multivitamin With Minerals) 1 tablet PO DAILY@0800 [facility] Last Admin: 05/27/19 09:19 Dose: 1 tablet Documented by: Nitroglycerin (Nitrostat) 0.4 mg SUBLINGUAL Q5M PRN PRN Reason: chest pain Oxycodone HCl (Oxyir) 5 mg PO Q4H PRN PRN PRN Reason: Pain Score 4-10/10 Prochlorperazine Edisylate (Compazine Iv) 5 mg IV Q4H PRN PRN PRN Reason: Breakthrough Nausea/Vomiting Promethazine HCl (Phenergan) 12.5 mg IV Q6H PRN PRN PRN Reason: Nausea/Vomiting Senna/Docusate Sodium (Senokot-S, Negar-Colace) 2 tablet PO BID PRN PRN PRN Reason: Constipation Sodium Chloride () 10 - 40 ml IV UD PRN PRN Reason: R Port Saline Flush Sodium Chloride (0.9% Nacl (Sterile) Posiflush) 10 - 40 ml IV UD PRN PRN Reason: Port access or dressing change Medical Necessity - Tobacco Use Smoking Status: Former smoker Assessment/Plan All Active Problems (Last Reviewed 04/20/19 @ 15:02 by Cheri Vo) Community-acquired pneumonia (Acute) Acute and chronic respiratory failure with hypoxia (Acute) Chest pain at rest (Acute) Bradycardia (Resolved) Chest pain (Resolved) #1 acute on chronic hypoxic respiratory failure-patient is currently stable on nasal cannula O2, continue present care, patient is in ICU status #2 non-small cell carcinoma of the left lung, small cell lung cancer-oncology saw the patient today and will participate in his care #3 coronary artery disease-stable at this time #4 community-acquired pneumonia-patient will remain on antibiotic coverage for now #5 bilateral pleural effusion-etiology unclear at this time, patient will have a right thoracentesis performed on Wednesday #6 COPD #7 essential hypertension Code Visit Inpatient E&M: 28751 Subs Hosp L2
--- NOTE | 2019-05-27 18:09 | NURSING ---
report called to [facility] for transfer to room 117, family present, transferred with belongings
[2019-05-27] MEDS: 0.9% Saline Lock 10 ML Syringe IV ×2 (20:00→21:54)
[2019-05-27] MEDS: Atorvastatin Calcium 10 MG Tablet PO (21:53)
[2019-05-28] VITALS (18 sets, daily range): BP systolic 112–125; BP diastolic 72–79; PULSE 69–87; RESP 18–24; TEMP 36.4–37; O2SAT 94–98
[2019-05-28] MEDS: Albuterol 2.5 MG/3 ML VIAL.NEB. INHALATION ×2 (02:18→05:28)
[2019-05-28] MEDS: 0.9% Saline Lock 10 ML Syringe IV ×2 (06:17→21:13)
[2019-05-28] MEDS: Multivitamins,Ther W-Minerals Tablet 1 TABLET PO (08:48)
[2019-05-28] MEDS: Amiodarone 200 MG Tablet 100 MG PO (08:49)
[2019-05-28] MEDS: guaiFENesin 1,200 MG Tablet 1200 MG PO ×2 (08:50→21:13)
[2019-05-28] MEDS: Metoprolol Tartrate 50 MG Tablet PO ×2 (08:50→21:13)
[2019-05-28] MEDS: Ascorbic Acid 500 MG Tablet PO (08:50)
--- NOTE | 2019-05-28 10:03 | PN_ITS ---
Patient Problems: Active and Suspected Problems (Last Reviewed 04/20/19 @ 15:02 by Cheri Vo) Community-acquired pneumonia (Acute) Acute and chronic respiratory failure with hypoxia (Acute) Subjective: The patient was seen and examined at the bedside this morning. Events from the last 24 hours have been reviewed. The patient is currently afebrile, hemodynamically stable and maintaining appropriate oxygen saturations on 4 L/min via nasal cannula. The patient is currently sitting in his bedside recliner eating breakfast. Questions regarding possible thoracentesis were addressed. Objective: The patient's most recent lab work, culture data and imaging studies have all been personally reviewed. CTA chest revealed mediastinal adenopathy along with a right hilar mass, bronchiectasis and nodular density in the right upper lobe. A right pleural effusion was also noted. Respiratory viral panel was negative. Strep and urine Legionella antigens were negative. Blood and sputum cultures are pending. - Physical Exam Vitals/I&O's: Vital Signs Temp Pulse Resp BP Pulse Ox 98.6 F 74 18 112/74 95 05/28/19 07:56 05/28/19 08:50 05/28/19 08:00 05/28/19 08:50 05/28/19 08:00 Oxygen Flow Rate (L/min) 4 Oxygen Delivery Method Nasal Cannula Weight: 226 lb 6.636 oz Body Mass Index (BMI) 30.4 Intake and Output for Last 24 Hours 05/26/19 05/27/19 05/28/19 23:59 23:59 23:59 Intake Total 2192.74 / 2342.74 2108.71 / 2108.71 424 / 424 Output Total 650 / 800 900 / 900 Balance 1542.74 / 1542.74 1208.71 / 1208.71 424 / 424 General: Alert, Cooperative, No apparent distress HEENT: Atraumatic, PERRLA, Normocephalic Oral: No Gingival or Mucosal Lesions/ Ulcerations Neck: Supple, No Nodes, Trachea Midline Lungs: Diminished, Rales Cardiovascular: Regular rate, Regular Rhythm, Normal S1, Normal S2, No murmurs Abdomen: Bowel Sounds Present, Soft, Non Tender Extremities: No clubbing, No cyanosis, No edema Skin: No breakdown Musculoskeletal: No Tenderness to Palpation of Joints or Extremities, No Muscle Wasting Lymphatic: No Cervical, Supraclavicular, or Inguinal Adenopathy Neurological: Cranial nerves II-XII grossly intact, Neuro grossly intact Psych/Mental Status: Normal Affect, Appropriate Labs (Last 48 Hours) 05/26/19 05/27/19 05/27/19 11:53 04:20 04:20 WBC 13.9 H RBC 3.40 L Hgb 10.7 L Hct 34.0 L MCV 100.0 H MCH 31.5 MCHC 31.5 L RDW Std Deviation 51.1 H RDW Coeff of Jamie 14.1 Plt Count 143 L MPV 10.5 Immature Gran % (Auto) 0.600 Neut % (Auto) 94.0 H Lymph % (Auto) 3.2 L [place] % (Auto) 2.1 Eos % (Auto) 0.0 Baso % (Auto) 0.1 Absolute Neuts (auto) 13.1 H Absolute Lymphs (auto) 0.44 L Nucleated RBC % 0 Sodium 141 Potassium 4.6 Chloride 106 Carbon Dioxide 27.0 Anion Gap 8 BUN 27 H Creatinine 1.32 H Estim Creat Clear Calc 52.23 Est GFR (MDRD) Af Amer 68 Est GFR (MDRD) Non-Af 57 L BUN/Creatinine Ratio 20.5 H Glucose 162 H Calcium 8.5 POC Glucose 185 H Microbiology 05/25/19 20:25 Sputum, Expectorated/Coughed Gram Stain - Final 05/25/19 20:25 Sputum, Expectorated/Coughed Respiratory Culture - Final 05/25/19 07:50 Blood Culture (Wb) - Left Hand Blood Culture - Preliminary No growth in 48 hours. 05/25/19 07:50 Blood Culture (Wb) - Port Blood Culture - Preliminary No growth in 48 hours. 05/25/19 14:05 Mucosa - Nasopharyngeal Respiratory Panel (PCR) - Final Clinical Impression(s) from Imaging Studies Chest X-Ray 05/25/19 07:32 IMPRESSION: New right pleural effusion with underlying infiltration and/or atelectasis. Increased markings at the left lung base with blunting of the left costophrenic angle. Electronically Signed: Miguel Chacon, at 8:38 EST , Service support , Chest X-Ray 05/25/19 08:32 IMPRESSION: Bilateral pleural effusions. Electronically Signed: Miguel Herreraroxanabarbara, at 9:05 EST , Service support , Chest CTA 05/25/19 09:12 IMPRESSION: Large right hilar mass with right pleural effusion and infiltration in the right lower lobe. 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 Mediastinal lymphadenopathy. Pleural thickening on the left side with evidence of plaque calcification. Cystic nodule in the spleen. Electronically Signed: Miguel Armstronganny, at 10:29 EST , Service support , Current Medications Acetaminophen (Tylenol) 650 mg PO Q6H PRN PRN PRN Reason: Pain Score 1-3/Temp > 100.7 F Albuterol Sulfate (Ventolin Aerosols) 2.5 mg INHALATION Q2H PRN PRN PRN Reason: SOB/Wheezing Last Admin: 05/28/19 05:28 Dose: 2.5 mg Documented by: Albuterol/Ipratropium (Duoneb) 3 ml INHALATION Q6HWA.RT [facility] Amiodarone HCl (Cordarone) 100 mg PO DAILY [facility] Last Admin: 05/28/19 08:49 Dose: 100 mg Documented by: Ascorbic Acid (Vitamin C) 500 mg PO DAILY [facility] Last Admin: 05/28/19 08:50 Dose: 500 mg Documented by: Atorvastatin Calcium (Lipitor) 10 mg PO QHS [facility] Last Admin: 05/27/19 21:53 Dose: 10 mg Documented by: Dextrose (D50w Syringe) 0 gm IV X1 PRN; Protocol PRN Reason: Hypoglycemia Glucagon () 1 mg IM .X1 PRN PRN Reason: Hypoglycemia Guaifenesin (Mucinex) 1,200 mg PO BID [facility] Last Admin: 05/28/19 08:50 Dose: 1,200 mg Documented by: Heparin Sodium (Beef Lung) () 50 units IV UD PRN PRN Reason: R Port Heparin Flush Sodium Chloride () 250 mls @ 15 mls/hr IV .[id number] PRN PRN Reason: Saline Flush Last Infusion: 05/28/19 06:10 Dose: 0 mls/hr Documented by: Piperacillin Sod/Tazobactam (Sod 3.375 gm/ Sodium Chloride) 50 mls @ 12.5 mls/hr IV Q8 [facility] Last Admin: 05/28/19 06:10 Dose: 12.5 mls/hr Documented by: Methylprednisolone (Solu-Medrol) 40 mg IV Q8 [facility] Last Admin: 05/28/19 06:33 Dose: 40 mg Documented by: Metoprolol Tartrate (Lopressor (Beta Sukhwinder)) 50 mg PO BID [facility] Last Admin: 05/28/19 08:50 Dose: 50 mg Documented by: Multivitamins/Minerals (Multivitamin With Minerals) 1 tablet PO DAILY@0800 [facility] Last Admin: 05/28/19 08:48 Dose: 1 tablet Documented by: Nitroglycerin (Nitrostat) 0.4 mg SUBLINGUAL Q5M PRN PRN Reason: chest pain Oxycodone HCl (Oxyir) 5 mg PO Q4H PRN PRN PRN Reason: Pain Score 4-10/10 Prochlorperazine Edisylate (Compazine Iv) 5 mg IV Q4H PRN PRN PRN Reason: Breakthrough Nausea/Vomiting Promethazine HCl (Phenergan) 12.5 mg IV Q6H PRN PRN PRN Reason: Nausea/Vomiting Senna/Docusate Sodium (Senokot-S, Negar-Colace) 2 tablet PO BID PRN PRN PRN Reason: Constipation Sodium Chloride () 10 - 40 ml IV UD PRN PRN Reason: R Port Saline Flush Last Admin: 05/28/19 06:17 Dose: 40 ml Documented by: Sodium Chloride (0.9% Nacl (Sterile) Posiflush) 10 - 40 ml IV UD PRN PRN Reason: Port access or dressing change Medical Necessity - Tobacco Use Smoking Status: Former smoker Assessment/Plan All Active Problems (Last Reviewed 04/20/19 @ 15:02 by Cheri Vo) Community-acquired pneumonia (Acute) Acute and chronic respiratory failure with hypoxia (Acute) Chest pain at rest (Acute) Bradycardia (Resolved) Chest pain (Resolved) RECOMMENDATIONS: 1. Continue antimicrobials. 2. Continue to wean supplemental oxygen as tolerated. 3. Continue to hold aspirin and Plavix, given tentative plans to perform thoracentesis. 4. Encourage incentive spirometer use and mobilize patient as tolerated. IMPRESSIONS: 1. Acute hypoxemic respiratory failure While the patient does have a history of a moderate mixed ventilatory defect, his radiographic findings noted on CTA chest are concerning for underlying progression of his lung malignancy, coupled with what appears to be a pulmonary infectious process and new right-sided pleural effusion. The patient's effusion may be secondary to infectious versus malignant etiologies. However, at the current time, the patient's use of aspirin and Plavix would preclude a thoracentesis from being performed. For now, the patient will be continued on antimicrobials. Supplemental oxygen will be weaned to maintain saturations at or above 90%. Continue bronchodilators and IV steroids. Will discuss with radiology tomorrow regarding the feasibility of obtaining a ultrasound-guided thoracentesis for further characterization of the patient's pleural effusion. 2. 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 Ayon. Oncology was consulted to assist with management. 3. History of coronary artery disease/paroxysmal atrial fi brillation/hyperlipidemia The patient's home aspirin and Plavix are going to be held, should thoracentesis need to be performed. 4. CODE status: Discussed CODE status at length including difference between FULL code, DNR-CCA and DNR-CC status. Following discussions about the differences in these status, patient requested full CODE STATUS. This note was generated with iLyng[employer] software. It may contain incorrect words, spelling, and punctuation that were not noted in checking the note before signing. Code Visit Inpatient E&M: 87027 Subs Hosp L2
[2019-05-28] MEDS: Ipratropium/Albuterol Sulfate 3 ML AMPUL.NEB INHALATION ×2 (13:10→19:43)
--- NOTE | 2019-05-28 17:42 | PN_ITS ---
Patient Problems: Active and Suspected Problems (Last Reviewed 04/20/19 @ 15:02 by Cheri Vo) Community-acquired pneumonia (Acute) Acute and chronic respiratory failure with hypoxia (Acute) Subjective: Patient was seen and examined today, he does not complain of any shortness of breath or chest discomfort at this time, I talked with his family who are in the room during the time of my examination. - Physical Exam Vitals/I&O's: Vital Signs Temp Pulse Resp BP Pulse Ox 97.6 F L 72 18 125/76 H 98 05/28/19 16:00 05/28/19 16:00 05/28/19 16:00 05/28/19 16:00 05/28/19 16:00 Oxygen Flow Rate (L/min) 4 Oxygen Delivery Method Nasal Cannula Weight: 102.7 kg Body Mass Index (BMI) 30.4 Intake and Output for Last 24 Hours 05/26/19 05/27/19 05/28/19 23:59 23:59 23:59 Intake Total 2192.74 / 2342.74 2108.71 / 2108.71 474 / 474 Output Total 650 / 800 900 / 900 Balance 1542.74 / 1542.74 1208.71 / 1208.71 474 / 474 General: Alert, Oriented x3, Cooperative, No apparent distress, Well developed, Well nourished HEENT: Atraumatic, PERRLA, EOMI, Normocephalic Oral: Moist Mucosa Neck: Supple, Trachea Midline, Thyroid Normal Size and Texture Lungs: No rhonchi, No wheeze, No rales, Diminished Cardiovascular: Regular rate, Regular Rhythm, Normal S1, Normal S2, No murmurs, No Ectopic Activity, PMI Normal, No rub noted, No Gallop Abdomen: Bowel Sounds Present, Soft, Non Tender, Non-Distended Extremities: No clubbing, No cyanosis, No edema, Capillary Refill Less than 3 Seconds Skin: No rashes, No breakdown Musculoskeletal: No Tenderness to Palpation of Joints or Extremities Neurological: Cranial nerves II-XII grossly intact, Neuro grossly intact, Sensory exam intact to light touch and pain, Coordination normal Psych/Mental Status: Normal Affect, Appropriate, Alert and oriented to time, place, person, mood and affect Microbiology Past 72 Hours 05/25/19 20:25 Sputum, Expectorated/Coughed Gram Stain - Final 05/25/19 20:25 Sputum, Expectorated/Coughed Respiratory Culture - Final 05/25/19 07:50 Blood Culture (Wb) - Left Hand Blood Culture - Preliminary No growth in 48 hours. 05/25/19 07:50 Blood Culture (Wb) - Port Blood Culture - Preliminary No growth in 48 hours. 05/25/19 14:05 Mucosa - Nasopharyngeal Respiratory Panel (PCR) - Final 05/25/19 17:20 Urine, Clean Catch Streptococcus pneumoniae Antigen (M - Final 05/25/19 17:20 Urine, Clean Catch Legionella Antigen - Final Current Medications Acetaminophen (Tylenol) 650 mg PO Q6H PRN PRN PRN Reason: Pain Score 1-3/Temp > 100.7 F Albuterol Sulfate (Ventolin Aerosols) 2.5 mg INHALATION Q2H PRN PRN PRN Reason: SOB/Wheezing Last Admin: 05/28/19 05:28 Dose: 2.5 mg Documented by: Albuterol/Ipratropium (Duoneb) 3 ml INHALATION Q6HWA.RT [facility] Last Admin: 05/28/19 13:10 Dose: 3 ml Documented by: Amiodarone HCl (Cordarone) 100 mg PO DAILY [facility] Last Admin: 05/28/19 08:49 Dose: 100 mg Documented by: Ascorbic Acid (Vitamin C) 500 mg PO DAILY [facility] Last Admin: 05/28/19 08:50 Dose: 500 mg Documented by: Atorvastatin Calcium (Lipitor) 10 mg PO QHS [facility] Last Admin: 05/27/19 21:53 Dose: 10 mg Documented by: Dextrose (D50w Syringe) 0 gm IV X1 PRN; Protocol PRN Reason: Hypoglycemia Glucagon () 1 mg IM .X1 PRN PRN Reason: Hypoglycemia Guaifenesin (Mucinex) 1,200 mg PO BID [facility] Last Admin: 05/28/19 08:50 Dose: 1,200 mg Documented by: Heparin Sodium (Beef Lung) () 50 units IV UD PRN PRN Reason: R Port Heparin Flush Sodium Chloride () 250 mls @ 15 mls/hr IV .[id number] PRN PRN Reason: Saline Flush Last Infusion: 05/28/19 06:10 Dose: 0 mls/hr Documented by: Piperacillin Sod/Tazobactam (Sod 3.375 gm/ Sodium Chloride) 50 mls @ 12.5 mls/hr IV Q8 [facility] Last Admin: 05/28/19 15:13 Dose: 12.5 mls/hr Documented by: Methylprednisolone (Solu-Medrol) 40 mg IV Q8 [facility] Last Admin: 05/28/19 15:12 Dose: 40 mg Documented by: Metoprolol Tartrate (Lopressor (Beta Sukhwinder)) 50 mg PO BID [facility] Last Admin: 05/28/19 08:50 Dose: 50 mg Documented by: Multivitamins/Minerals (Multivitamin With Minerals) 1 tablet PO DAILY@0800 [facility] Last Admin: 05/28/19 08:48 Dose: 1 tablet Documented by: Nitroglycerin (Nitrostat) 0.4 mg SUBLINGUAL Q5M PRN PRN Reason: chest pain Oxycodone HCl (Oxyir) 5 mg PO Q4H PRN PRN PRN Reason: Pain Score 4-10/10 Prochlorperazine Edisylate (Compazine Iv) 5 mg IV Q4H PRN PRN PRN Reason: Breakthrough Nausea/Vomiting Promethazine HCl (Phenergan) 12.5 mg IV Q6H PRN PRN PRN Reason: Nausea/Vomiting Senna/Docusate Sodium (Senokot-S, Negar-Colace) 2 tablet PO BID PRN PRN PRN Reason: Constipation Sodium Chloride () 10 - 40 ml IV UD PRN PRN Reason: R Port Saline Flush Last Admin: 05/28/19 06:17 Dose: 40 ml Documented by: Sodium Chloride (0.9% Nacl (Sterile) Posiflush) 10 - 40 ml IV UD PRN PRN Reason: Port access or dressing change Medical Necessity - Tobacco Use Smoking Status: Former smoker Assessment/Plan All Active Problems (Last Reviewed 04/20/19 @ 15:02 by Cheri Vo) Community-acquired pneumonia (Acute) Acute and chronic respiratory failure with hypoxia (Acute) Chest pain at rest (Acute) Bradycardia (Resolved) Chest pain (Resolved) #1 acute on chronic hypoxic respiratory failure-patient is currently stable on nasal cannula O2, continue present care, patient will undergo a right thoracentesis tomorrow. 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
--- NOTE | 2019-05-28 17:51 | US_ITS ---
Under ultrasound guidance and following appropriate antiseptic preparation and local anesthesia, 6 Indonesian catheter was inserted in the right pleural cavity, 1120 mL of orange color fluid aspirated part of this was sent to the lab for assessment. US/Thoracentesis W US IMPRESSION: Uneventful thoracentesis Electronically Signed: Bennett Tillman, at 7:50 EST Tel , Service support ,
[2019-05-28 18:25] LABS: Globulin 3.1 g/dL (2.2-4.2); LDH 184 U/L (87-241); Protein, Total 6.2 g/dL (6.4-8.2)
[2019-05-28] MEDS: Atorvastatin Calcium 10 MG Tablet PO (21:13)
[2019-05-29] VITALS (12 sets, daily range): BP systolic 109–147; BP diastolic 62–80; PULSE 65–83; RESP 16–18; TEMP 36.4–36.6; O2SAT 95–98
--- NOTE | 2019-05-29 | IMM_PTH ---
PATIENT: ALEXANDRA WALTER Jr. LOC: PCU U#:[id number] AGE/SX: 73/M ROOM: [facility] RE05/25/[address]: Dr. Rk Alegre DO : 1945 BED: 1 DIS: 05/29/2019 SPEC #: [id number] RECD: 05/30/19 14:41 STATUS: SOUT REQ #: [id number] ABEBA: 05/29/19 00:[address]: Rk Alegre DEPT: IMMUNOHISTOCHEMISTRY RECD BY: Radha Graham ENTERED: 05/30/19 14:42 SP TYPE: IMMUNO OTHR DR: DO Dr. Jaguar Salas DO Dr. Joseph Prah, MD Dr. Prakash Chand, MD Tissues: THORACIC FLUID Procedures: NAPSIN A (add) CK14 (add) CK20 (add) CK5-6 (add) CK7 (add) CK8 (add) TTF1 (add) Pankeratin (initial) P40 (add) PHYSICIAN & [address] [address] SPECIMEN INFORMATION: Tissue Source: Thoracentesis fluid Clinical Info: Acute respiratory failure with pneumonia/lung mass Specimen Number: [id number] CPT code: 41273, 25733 x8 METHODOLOGY: Deparaffinized sections of prefer/formalin-fixed tissue or PAP/DQ stained slides are incubated with monoclonal/polyclonal antibodies/oligonucleotide probes. Localization is made via biotin free immunoperoxidase method. Appropriate controls are performed and reacted as expected. Results on target cell population are indicated in the following table: RESULTS: ANTIBODY / CLONE RESULT AE1-3 (AE1/AE3/PCK26) * CK7 (OV-TL12/30) * CK8 (36ovgwM43) * CK20 (KS20.8) negative TTF-1 (8G7G3/1) negative Napsin A (Rabbit Polyclonal) negative CK5-6 (D5 & 1684) negative CK14 (LL002) negative P40 (BC28) negative *?Noncontributory These tests were developed and their performance characteristics determined by [facility]. They may not have been cleared or approved by the U.S. Food and Drug Administration. The FDA has determined that such clearance or approval is not necessary. The above immunohistochemical/dualISH markers are ordered and reviewed by the Pathologist. INTERPRETATION: Thoracentesis fluid: Atypical cells suspicious for malignancy. AM:beny 05/31/19 Case has been reviewed in consultation with Dr. Saucedo who concurs with the above diagnosis. IDC:SJ
--- NOTE | 2019-05-29 | FLU_PTH ---
PATIENT: ALEXANDRA WALTER Jr. LOC: [facility] U#:[id number] AGE/SX: 73/M ROOM: [facility] RE05/25/[address]: Dr. Rk Alegre DO : 1945 BED: 1 DIS: 05/29/2019 SPEC #: [id number] RECD: 05/29/19 10:35 STATUS: INEZ REQ #: [id number] ABEBA: 05/29/19 00:[address]: Rk Alegre DEPT: CYTOLOGY RECD BY: Froilan Castañeda ENTERED: 05/29/19 11:50 SP TYPE: Fluid OTHR DR: DO Dr. Jaguar Salas DO Dr. Joseph Prah, MD Dr. Prakash Chand, MD Tissues: THORACIC FLUID Procedures: Special Stain Group II Surgery Specimen Level IV Cytospin Fluid HEADER OPERATION: Thoracentesis PRE-OP DIAGNOSIS: Acute respiratory failure with pneumonia/lung mass TISSUE SUBMITTED: Thoracentesis fluid for cytology DIAGNOSIS CYTOLOGY Thoracentesis fluid for cytology (cytospin and cell block): Rare atypical cells suspicious for malignancy. AM:beny 05/30/19 COMMENT Immunohistochemistry ([id number]) is non-contributory. The paucity of the atypical cells precludes a definitive classification. Clinical correlation is suggested. 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 Case has been reviewed in consultation with Dr. Saucedo who concurs with the above diagnosis. IDC:SJ CYTOLOGY STUDY Slides are reviewed. CYTOLOGY GROSS Received is 120 ml of cloudy susi fluid labeled with the patient's name and and designated per the requisition as thoracic fluid. Submitted for cytology preparation including cell block. /CC:cc 05/29/19 TC:0 CPT: 71452, 06978
[2019-05-29] MEDS: 0.9% Saline Lock 10 ML Syringe IV ×4 (03:14→18:27)
[2019-05-29 03:36] LABS: International Normalized Ratio 1.2; Prothrombin Time (Protime)PT. 15.4 SECONDS (11.7-14.9)
[2019-05-29 03:37] LABS: Partial Thromboplast Time 25.3 Seconds (24.1-36.2)
[2019-05-29] MEDS: Ipratropium/Albuterol Sulfate 3 ML AMPUL.NEB INHALATION ×2 (07:19→12:51)
--- NOTE | 2019-05-29 10:34 | RAD_ITS ---
STUDY: X-RAY CHEST REASON FOR EXAM: Male, 73 years old. TECHNIQUE: COMPARISON: None. FINDINGS: The lungs are clear and expanded. There is no demonstrated pleural abnormality is minimal blunting of the costophrenic angle seen on the right side. Heavy markings noted at the bases. No evidence of pneumothorax after thoracentesis.. Normal size heart. Normal mediastinum and tessa. Normal visualized pulmonary arteries. Normal visualized aortic arch and descending thoracic aorta. Normal visualized thoracic spine. Normal visualized ribs, clavicles, and shoulders. There is no demonstrated abnormality of the visualized soft tissue structures of the upper abdomen. RAD/Chest Insp/Exp 2 View IMPRESSION: Normal x-ray examination of the chest. Electronically Signed: Bennett Tillman, at 11:01 EST Tel , Service support ,
[2019-05-29 11:02] LABS: Body Fluid Mononuclear WBC # 0.045 10^3/uL; Body Fluid Mononuclear WBC % 69.2 %; Body Fluid Polynuclear WBC % 30.8 %; Body Fluid Total Cells Counted 0.067 10^3/ul; White Blood Count/Body Fluid 0.065 10^3/uL
[2019-05-29] MEDS: Multivitamins,Ther W-Minerals Tablet 1 TABLET PO (11:12)
[2019-05-29] MEDS: Amiodarone 200 MG Tablet 100 MG PO (11:13)
[2019-05-29] MEDS: Metoprolol Tartrate 50 MG Tablet PO (11:13)
[2019-05-29] MEDS: guaiFENesin 1,200 MG Tablet 1200 MG PO (11:14)
[2019-05-29] MEDS: Ascorbic Acid 500 MG Tablet PO (11:14)
[2019-05-29 11:23] LABS: Appearance/Body Fluid SL CLDY; Auto B Fluid Analyzer BKGD Ct COUNTS W/IN LIMITS (W/IN LIMITS); Color/Body Fluid LT YEL; Red Cell Count/Body Fluid 369 /mm3
[2019-05-29 11:26] LABS: Glucose, Body Fluid 158 mg/dL (40-70); LDH,Body Fluid 85 Units/l (Not Establ.); Protein, Body Fluid 2.6 g/dL (Not Establ.)
[2019-05-29 11:46] LABS: Lymphocytes 60 %; Monocytes 5 %; Neutrophil (Segs) 34 %
[2019-05-29 11:47] LABS: Body Fluid QC Type(s) BF1Q,BF2Q
[2019-05-29 11:49] LABS: Other Cell Type/BF 1 %; Source- Body Fluid THORACENTESIS
--- NOTE | 2019-05-29 14:00 | PCM.PN.PUL ---
Patient Problems: Active and Suspected Problems (Last Reviewed 04/20/19 @ 15:02 by Cheri Vo) Community-acquired pneumonia (Acute) Acute and chronic respiratory failure with hypoxia (Acute) Subjective: Patient did well overnight. No acute issues were reported. Patient is reporting significant subjective improvement following thoracentesis. Patient reports that chest over 1100 cc of fluid was removed. Objective: Test x-ray was personally reviewed and does not show any pneumothorax - Physical Exam Vitals/I&O's: Vital Signs Temp Pulse Resp BP Pulse Ox 36.6 C 83 18 115/69 96 05/29/19 11:06 05/29/19 13:37 05/29/19 11:06 05/29/19 11:13 05/29/19 11:06 Oxygen Flow Rate (L/min) [4] 4 Oxygen Flow Rate (L/min) [3] 2 Oxygen Flow Rate (L/min) [2] 4 Oxygen Flow Rate (L/min) [1 ( 4 Initial Baseline)] Oxygen Flow Rate (L/min) 4 Oxygen Delivery Method [4] Nasal Cannula Oxygen Delivery Method [3] Nasal Cannula Oxygen Delivery Method [2] Nasal Cannula Oxygen Delivery Method [1 ( Nasal Cannula Initial Baseline)] Oxygen Delivery Method Room Air Weight: 102.875 kg Body Mass Index (BMI) 30.4 Intake and Output for Last 24 Hours 05/27/19 05/28/19 05/29/19 23:59 23:59 23:59 Intake Total 2108.71 / 2108.71 1038.58 / 1158.58 216.67 / 216.67 Output Total 900 / 900 100 / 250 1720 / 1720 Balance 1208.71 / 1208.71 938.58 / 908.58 -1503.33 / -1503.33 General: Alert, Oriented x3, Cooperative, No apparent distress, Well developed, Well nourished, - - Speaking in full sentences. HEENT: Atraumatic, PERRLA, EOMI, Normocephalic, - - No scleral icterus or injection noted Oral: Moist Mucosa, No Gingival or Mucosal Lesions/ Ulcerations Neck: Supple, No JVD, No Nodes, Trachea Midline Lungs: No rhonchi, No wheeze, No rales, Diminished, - - No dullness to percussion. Port noted right chest Cardiovascular: Regular rate, Regular Rhythm, Normal S1, Normal S2, No murmurs, No rub noted, No Gallop Abdomen: Bowel Sounds Present, Soft, Non Tender, Non-Distended Extremities: No clubbing, No cyanosis, No edema, Capillary Refill Less than 3 Seconds Skin: No rashes, No breakdown Musculoskeletal: No Tenderness to Palpation of Joints or Extremities Lymphatic: No Cervical, Supraclavicular, or Inguinal Adenopathy Neurological: Cranial nerves II-XII grossly intact, Neuro grossly intact, Motor Exam 5/5 strength throughout Psych/Mental Status: Alert and oriented to time, place, person, mood and affect Microbiology Past 72 Hours 05/29/19 09:43 Fluid - Thoracentesis Fluid Gram Stain - Final 05/25/19 20:25 Sputum, Expectorated/Coughed Gram Stain - Final 05/25/19 20:25 Sputum, Expectorated/Coughed Respiratory Culture - Final 05/25/19 07:50 Blood Culture (Wb) - Left Hand Blood Culture - Preliminary No growth in 48 hours. 05/25/19 07:50 Blood Culture (Wb) - Port Blood Culture - Preliminary No growth in 48 hours. Laboratory Results 05/28/19 04:20: Lactate Dehydrogenase 184, Total Protein 6.2 L, Globulin 3.1, Albumin/Globulin Ratio 1.0 05/28/19 09:43: Fluid pH Pending 05/29/19 03:15: PT 15.4 H, INR 1.2, APTT 25.3 05/29/19 09:43: Fluid Glucose 158 H, Fluid Total Protein 2.6, Fluid LDH 85 05/29/19 09:43: Fluid Source THORACENTESIS, Fluid Color LT YEL, Fluid Appearance SL CLDY, Fluid WBC 0.065, Fluid RBC 369, Fluid Tot Cell Count 0.067, Fld Polynuclear WBCs # 0.020, Fld Polynuclear WBCs % 30.8, Fluid Mononuclear WBCs 0.045, Fld Mononuclear WBCs % 69.2, Fluid Neutrophils 34, Fluid Lymphocytes 60, Fluid Monocytes 5, Fluid Other Cells 1, Fl Pathologist Comment May follow, Fluid Comment 2 SEE COMMENT Clinical Impression(s) from Imaging Studies Chest X-Ray 05/29/19 10:34 IMPRESSION: Normal x-ray examination of the chest. Electronically Signed: Bennett Tillman, at 11:01 EST Tel , Service support , Current Medications Acetaminophen (Tylenol) 650 mg PO Q6H PRN PRN PRN Reason: Pain Score 1-3/Temp > 100.7 F Albuterol Sulfate (Ventolin Aerosols) 2.5 mg INHALATION Q2H PRN PRN PRN Reason: SOB/Wheezing Last Admin: 05/28/19 05:28 Dose: 2.5 mg Documented by: Albuterol/Ipratropium (Duoneb) 3 ml INHALATION Q6HWA.RT [facility] Last Admin: 05/29/19 12:51 Dose: 3 ml Documented by: Amiodarone HCl (Cordarone) 100 mg PO DAILY [facility] Last Admin: 05/29/19 11:13 Dose: 100 mg Documented by: Ascorbic Acid (Vitamin C) 500 mg PO DAILY [facility] Last Admin: 05/29/19 11:14 Dose: 500 mg Documented by: Atorvastatin Calcium (Lipitor) 10 mg PO QHS [facility] Last Admin: 05/28/19 21:13 Dose: 10 mg Documented by: Dextrose (D50w Syringe) 0 gm IV X1 PRN; Protocol PRN Reason: Hypoglycemia Glucagon () 1 mg IM .X1 PRN PRN Reason: Hypoglycemia Guaifenesin (Mucinex) 1,200 mg PO BID [facility] Last Admin: 05/29/19 11:14 Dose: 1,200 mg Documented by: Heparin Sodium (Beef Lung) () 50 units IV UD PRN PRN Reason: R Port Heparin Flush Sodium Chloride () 250 mls @ 15 mls/hr IV .[id number] PRN PRN Reason: Saline Flush Last Infusion: 05/29/19 01:30 Dose: 0 mls/hr Documented by: Piperacillin Sod/Tazobactam (Sod 3.375 gm/ Sodium Chloride) 50 mls @ 12.5 mls/hr IV Q8 [facility] Last Infusion: 05/29/19 11:17 Dose: Infused Documented by: Methylprednisolone (Solu-Medrol) 40 mg IV Q8 [facility] Last Admin: 05/29/19 05:00 Dose: 40 mg Documented by: Metoprolol Tartrate (Lopressor (Beta Sukhwinder)) 50 mg PO BID [facility] Last Admin: 05/29/19 11:13 Dose: 50 mg Documented by: Multivitamins/Minerals (Multivitamin With Minerals) 1 tablet PO DAILY@0800 [facility] Last Admin: 05/29/19 11:12 Dose: 1 tablet Documented by: Nitroglycerin (Nitrostat) 0.4 mg SUBLINGUAL Q5M PRN PRN Reason: chest pain Oxycodone HCl (Oxyir) 5 mg PO Q4H PRN PRN PRN Reason: Pain Score 4-10/10 Prochlorperazine Edisylate (Compazine Iv) 5 mg IV Q4H PRN PRN PRN Reason: Breakthrough Nausea/Vomiting Promethazine HCl (Phenergan) 12.5 mg IV Q6H PRN PRN PRN Reason: Nausea/Vomiting Senna/Docusate Sodium (Senokot-S, Negar-Colace) 2 tablet PO BID PRN PRN PRN Reason: Constipation Sodium Chloride () 10 - 40 ml IV UD PRN PRN Reason: R Port Saline Flush Last Admin: 05/29/19 09:26 Dose: 10 ml Documented by: Sodium Chloride (0.9% Nacl (Sterile) Posiflush) 10 - 40 ml IV UD PRN PRN Reason: Port access or dressing change Medical Necessity - Tobacco Use Smoking Status: Former smoker Assessment/Plan All Active Problems (Last Reviewed 04/20/19 @ 15:02 by Cheri Vo) Community-acquired pneumonia (Acute) Acute and chronic respiratory failure with hypoxia (Acute) Chest pain at rest (Acute) Bradycardia (Resolved) Chest pain (Resolved) RECOMMENDATIONS: 1. Okay to discharge from pulmonary perspective 2. Continue to wean supplemental oxygen as tolerated. 3. Okay to reinitiate aspirin and Plavix 4. Encourage incentive spirometer use and mobilize patient as tolerated. 5. Follow-up in our office in 2 weeks IMPRESSIONS: 1. Acute hypoxemic respiratory failure Patient's pleural effusion does appear to be secondary to malignancy. No signs or symptoms of infection in the pleural fluid. Patient will need a walking oximetry prior to discharge. Okay to discharge from pulmonary perspective. Patient can be transition to p.o. prednisone and weaned over the next 12 to 14 days. Patient should follow-up in our office in 2 weeks to meet with nurse practitioner. If repeat chest x-ray shows no pneumothorax, okay to discharge from pulmonary perspective. 2. 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 Ayon. Oncology was consulted to assist with management. 3. History of coronary artery disease/paroxysmal atrial fibrillation/hyperlipidemia The patient's home aspirin and Plavix are going to be held, should thoracentesis need to be performed. 4. CODE status: Informed full CODE STATUS Code Visit Inpatient E&M: 50752 Subs Hosp L2
--- NOTE | 2019-05-29 15:48 | CASEMGMT ---
Therapy is recommending HHC for pt at this time and this RN CM to room to discuss with pt. Pt declines HHC and OP therapy at this time. Pt states no concerns with going home at discharge. Pt voices no further questions/concerns/needs at this time. SStaten RN CM
--- NOTE | 2019-05-29 17:13 | PCM.DC ---
- Discharge Diagnoses Current Active Problems: Current Active and Chronic Problems (Last Reviewed 04/20/19 @ 15:02 by Cheri Vo) Community-acquired pneumonia (Acute) Acute and chronic respiratory failure with hypoxia (Acute) You will use the following diet at home:: No restrictions Your food should be the consistency of: Regular Your liquids should be the consistency of: Regular/Thin Discharge Activity: Return to Normal Activity Weight Bearing Status: Full weight bearing Allergies/Adverse Reactions: Allergies No Known Allergies Allergy (Verified 05/25/19 07:20) Medications to take at Discharge Multivit-Min/FA/Lycopen/Lutein [Centrum Silver Tablet] 1 ea PO DAILY 10/14/16 aspirin 81 mg tablet,delayed release 81 mg PO QDAY 12/19/17 ascorbic acid (vitamin C) 500 mg capsule 500 mg PO QDAY cap 12/20/17 albuterol sulfate HFA 90 mcg/actuation aerosol inhaler 1 - 2 puff INHALATION Q4H PRN PRN #1 device 02/21/18 cholecalciferol (vitamin D3) 5,000 unit capsule 5,000 unit PO DAILY 06/21/18 simvastatin 20 mg tablet 20 mg PO QHS 90 Days #90 tab 06/21/18 clopidogrel 75 mg tablet 75 mg PO DAILY #90 tab 10/04/18 amiodarone 200 mg tablet 100 mg PO DAILY #45 tab 01/30/19 metoprolol tartrate 50 mg tablet 50 mg PO BID #180 tab 03/29/19 nitroglycerin 0.4 mg sublingual tablet 0.4 mg SUBLINGUAL PRN PRN #25 tab 04/07/19 Amiodarone HCl [Cordarone] 100 mg PO DAILY tablet 05/29/19 Guaifenesin/Codeine [Robitussin AC] 10 ml PO Q6H PRN PRN 7 Days #240 ml 05/29/19 Ipratropium/Albuterol Sulfate [Duoneb] 3 ml INHALATION Q6HWA.RT #1 ampul.neb 05/29/19 Prednisone 10 mg PO UD #30 tab 05/29/19 The following prescriptions were given: Ipratropium/Albuterol Sulfate [Duoneb] 3 ml INHALATION Q6HWA.RT #1 ampul.neb Prednisone 10 mg PO UD #30 tab Prescription Printed Guaifenesin/Codeine [Robitussin AC] 10 ml PO Q6H PRN PRN 7 Days #240 ml PRN Reason: Cough Transmission Status: Received by MAGO MCFARLAND[address] Primary Care Physician: Rogelio Green DO [Primary Care Provider] - Test Results: Test results from this visit will be discussed in further detail at your follow-up appointment, if applicable. Please Follow Up With: Jaguar Dso Santos DO When: in 2 weeks Please Follow Up With: Jayson Ayon MD When: as directed
--- NOTE | 2019-05-29 18:37 | PCM.DC.SUM ---
Discharge Date and Diagnosis - Problem List Patient Problems: Active and Suspected Problems (Last Reviewed 04/20/19 @ 15:02 by Cheri oV) Community-acquired pneumonia (Acute) Acute and chronic respiratory failure with hypoxia (Acute) Date of Admission: 05/25/19 Date of Discharge: 05/29/19 - Primary Discharge Diagnosis Active and Suspected Problems (Last Reviewed 04/20/19 @ 15:02 by Cheri Vo) #1 acute on chronic hypoxic respiratory failure secondary to community-acquired pneumonia #2 non-small cell carcinoma of the left lung, small cell lung cancer #3 coronary artery disease #4 community-acquired pneumonia #5 bilateral pleural effusion-etiology unclear #6 COPD #7 essential hypertension - Secondary Discharge Diagnosis Chronic Problems (Last Reviewed 04/20/19 @ 15:02 by Cheri Vo) Thrombocytopenia (Chronic) Anemia (Chronic) Gram-negative pneumonia (Chronic) Pancytopenia (Chronic) Neutropenic fever (Chronic) Right upper lobe pulmonary nodule (Chronic) Non-small cell carcinoma of left lung, stage 3 (Chronic) Paroxysmal atrial fibrillation (Chronic) Atherosclerotic heart disease of [place] coronary artery without angina pectoris (Chronic) PTCA/stent of the mid LAD, prox 1st diag, prox RCA 08/13/10; PTCA/BETO of the Ostial/Prox 1st diag 12/15/16 Dyspnea (Chronic) Fatigue (Chronic) Wheezing (Chronic) Long-term use of high-risk medication (Chronic) Primary small cell malignant neoplasm of lung, stage 3 (Chronic) Acute DVT (deep venous thrombosis) (Chronic) Nocturnal hypoxia (Chronic) Radiation esophagitis (Chronic) HLD (hyperlipidemia) (Chronic) Small cell lung cancer (Chronic) History of coronary artery stent placement (Chronic) PTCA/stent of the mid LAD, prox 1st diag, prox RCA 08/13/10; PTCA/BETO of the Ostial/Prox 1st diag 12/15/16 Obesity (BMI 30-39.9) (Chronic) Smoking addiction (Chronic) COPD (chronic obstructive pulmonary disease) (Chronic) HTN (hypertension) (Chronic) Hospital Course and Treatment Imaging Results: 05/29/19 10:34 Chest Insp/Exp 2 View [RAD] Stat Operations: None Procedures: Thoracentesis Summary of Care Provided: The patient is a 73 year old M who was seen in the emergency room at [facility] with chief of cough and shortness of breath. He had a history of COPD, coronary artery disease, and recently diagnosed squamous cell lung cancer. Patient also has a history of small cell lung cancer in the past. Evaluation in the emergency room revealed the patient to be tachycardic, chest x-ray showed a right pleural effusion with possible infiltrate, chronic COPD changes, and small effusion on the left. CBC showed a normal white blood cell count, hemoglobin was 12, CT of the chest showed no evidence of pulmonary embolism. CTA also showed a right lower lobe extensive lung mass with pleural effusion and suspected infiltrate. Patient was given aerosol treatments in the emergency room, IV Solu-Medrol, and started on IV Rocephin and Zithromax for pneumonia. Patient was admitted to the ICU, his pulse ox was monitored, and he was seen in consultation by pulmonary medicine. Antibiotic coverage was extended to broader spectrum antibiotics, he was seen in consultation also by oncology. It was recommended that the patient have a thoracentesis for examination of right pleural fluid, patient was taken off his Plavix and aspirin. Patient was transferred to PCU, on 05/29/2019 he underwent a right thoracentesis without incident. Approximately 1 L of fluid was removed. X-rays postprocedure did not show pneumothorax. On 05/29/2019, patient was seen and examined: On examination he appeared comfortable and in no respiratory distress. Vital signs as documented. Skin warm and dry and without overt rashes. Neck without JVD. Lungs clear. Heart exam notable for regular rhythm, normal sounds and absence of murmurs, rubs or gallops. Abdomen unremarkable and without evidence of organomegaly, masses, or abdominal aortic enlargement. Extremities nonedematous. Neuro: Cranial nerves II through XII are grossly intact, no focal motor deficits were noted, sensation to light touch and pinprick intact. Psych: Patient is alert and oriented x3, he does not appear anxious or depressed On 05/29/2019, patient was seen and examined and felt to be in stable condition for discharge home. Patient Problems: Active and Suspected Problems (Last Reviewed 04/20/19 @ 15:02 by Cheri Vo) Community-acquired pneumonia (Acute) Acute and chronic respiratory failure with hypoxia (Acute) - Physical Exam Vitals/I&O's: Vital Signs Temp Pulse Resp BP Pulse Ox 97.7 F L 76 18 113/74 96 05/29/19 16:34 05/29/19 16:34 05/29/19 16:34 05/29/19 16:34 05/29/19 16:34 Oxygen Flow Rate (L/min) [4] 4 Oxygen Flow Rate (L/min) [3] 2 Oxygen Flow Rate (L/min) [2] 4 Oxygen Flow Rate (L/min) [1 ( 4 Initial Baseline)] Oxygen Flow Rate (L/min) 4 Oxygen Delivery Method [4] Nasal Cannula Oxygen Delivery Method [3] Nasal Cannula Oxygen Delivery Method [2] Nasal Cannula Oxygen Delivery Method [1 ( Nasal Cannula Initial Baseline)] Oxygen Delivery Method Nasal Cannula Weight: 102.875 kg Body Mass Index (BMI) 30.4 Intake and Output for Last 24 Hours 05/27/19 05/28/19 05/29/19 23:59 23:59 23:59 Intake Total 2108.71 / 2108.71 1038.58 / 1158.58 216.67 / 216.67 Output Total 900 / 900 100 / 250 1720 / 1720 Balance 1208.71 / 1208.71 938.58 / 908.58 -1503.33 / -1503.33 Microbiology Past 72 Hours 05/29/19 09:43 Fluid - Thoracentesis Fluid Gram Stain - Final 05/25/19 20:25 Sputum, Expectorated/Coughed Gram Stain - Final 05/25/19 20:25 Sputum, Expectorated/Coughed Respiratory Culture - Final 05/25/19 07:50 Blood Culture (Wb) - Left Hand Blood Culture - Preliminary No growth in 48 hours. 05/25/19 07:50 Blood Culture (Wb) - Port Blood Culture - Preliminary No growth in 48 hours. Laboratory Results 05/28/19 09:43: Fluid pH Pending 05/29/19 03:15: PT 15.4 H, INR 1.2, APTT 25.3 05/29/19 09:43: Fluid Glucose 158 H, Fluid Total Protein 2.6, Fluid LDH 85 05/29/19 09:43: Fluid Source THORACENTESIS, Fluid Color LT YEL, Fluid Appearance SL CLDY, Fluid WBC 0.065, Fluid RBC 369, Fluid Tot Cell Count 0.067, Fld Polynuclear WBCs # 0.020, Fld Polynuclear WBCs % 30.8, Fluid Mononuclear WBCs 0.045, Fld Mononuclear WBCs % 69.2, Fluid Neutrophils 34, Fluid Lymphocytes 60, Fluid Monocytes 5, Fluid Other Cells 1, Fl Pathologist Comment May follow, Fluid Comment 2 SEE COMMENT Current Medications Acetaminophen (Tylenol) 650 mg PO Q6H PRN PRN PRN Reason: Pain Score 1-3/Temp > 100.7 F Albuterol Sulfate (Ventolin Aerosols) 2.5 mg INHALATION Q2H PRN PRN PRN Reason: SOB/Wheezing Last Admin: 05/28/19 05:28 Dose: 2.5 mg Documented by: Albuterol/Ipratropium (Duoneb) 3 ml INHALATION Q6HWA.RT [facility] Last Admin: 05/29/19 12:51 Dose: 3 ml Documented by: Amiodarone HCl (Cordarone) 100 mg PO DAILY [facility] Last Admin: 05/29/19 11:13 Dose: 100 mg Documented by: Ascorbic Acid (Vitamin C) 500 mg PO DAILY [facility] Last Admin: 05/29/19 11:14 Dose: 500 mg Documented by: Atorvastatin Calcium (Lipitor) 10 mg PO QHS [facility] Last Admin: 05/28/19 21:13 Dose: 10 mg Documented by: Dextrose (D50w Syringe) 0 gm IV X1 PRN; Protocol PRN Reason: Hypoglycemia Glucagon () 1 mg IM .X1 PRN PRN Reason: Hypoglycemia Guaifenesin (Mucinex) 1,200 mg PO BID [facility] Last Admin: 05/29/19 11:14 Dose: 1,200 mg Documented by: Heparin Sodium (Beef Lung) () 50 units IV UD PRN PRN Reason: R Port Heparin Flush Last Admin: 05/29/19 18:27 Dose: 50 units Documented by: Sodium Chloride () 250 mls @ 15 mls/hr IV .[id number] PRN PRN Reason: Saline Flush Last Infusion: 05/29/19 01:30 Dose: 0 mls/hr Documented by: Piperacillin Sod/Tazobactam (Sod 3.375 gm/ Sodium Chloride) 50 mls @ 12.5 mls/hr IV Q8 [facility] Last Admin: 05/29/19 14:12 Dose: 12.5 mls/hr Documented by: Methylprednisolone (Solu-Medrol) 40 mg IV Q8 [facility] Last Admin: 05/29/19 14:07 Dose: 40 mg Documented by: Metoprolol Tartrate (Lopressor (Beta Sukhwinder)) 50 mg PO BID [facility] Last Admin: 05/29/19 11:13 Dose: 50 mg Documented by: Multivitamins/Minerals (Multivitamin With Minerals) 1 tablet PO DAILY@0800 [facility] Last Admin: 05/29/19 11:12 Dose: 1 tablet Documented by: Nitroglycerin (Nitrostat) 0.4 mg SUBLINGUAL Q5M PRN PRN Reason: chest pain Oxycodone HCl (Oxyir) 5 mg PO Q4H PRN PRN PRN Reason: Pain Score 4-10/10 Prochlorperazine Edisylate (Compazine Iv) 5 mg IV Q4H PRN PRN PRN Reason: Breakthrough Nausea/Vomiting Promethazine HCl (Phenergan) 12.5 mg IV Q6H PRN PRN PRN Reason: Nausea/Vomiting Senna/Docusate Sodium (Senokot-S, Negar-Colace) 2 tablet PO BID PRN PRN PRN Reason: Constipation Sodium Chloride () 10 - 40 ml IV UD PRN PRN Reason: R Port Saline Flush Last Admin: 05/29/19 18:27 Dose: 10 ml Documented by: Sodium Chloride (0.9% Nacl (Sterile) Posiflush) 10 - 40 ml IV UD PRN PRN Reason: Port access or dressing change Discharge Activity: Return to Normal Activity Weight Bearing Status: Full weight bearing Home Medications: Medications to take at Discharge Multivit-Min/FA/Lycopen/Lutein [Centrum Silver Tablet] 1 ea PO DAILY 10/14/16 aspirin 81 mg tablet,delayed release 81 mg PO QDAY 12/19/17 ascorbic acid (vitamin C) 500 mg capsule 500 mg PO QDAY cap 12/20/17 albuterol sulfate HFA 90 mcg/actuation aerosol inhaler 1 - 2 puff INHALATION Q4H PRN PRN #1 device 02/21/18 cholecalciferol (vitamin D3) 5,000 unit capsule 5,000 unit PO DAILY 06/21/18 simvastatin 20 mg tablet 20 mg PO QHS 90 Days #90 tab 06/21/18 clopidogrel 75 mg tablet 75 mg PO DAILY #90 tab 10/04/18 amiodarone 200 mg tablet 100 mg PO DAILY #45 tab 01/30/19 metoprolol tartrate 50 mg tablet 50 mg PO BID #180 tab 03/29/19 nitroglycerin 0.4 mg sublingual tablet 0.4 mg SUBLINGUAL PRN PRN #25 tab 04/07/19 Amiodarone HCl [Cordarone] 100 mg PO DAILY tab 05/29/19 Guaifenesin/Codeine [Robitussin AC] 10 ml PO Q6H PRN PRN 7 Days #240 ml 05/29/19 Ipratropium/Albuterol Sulfate [Duoneb] 3 ml INHALATION Q6HWA.RT #1 ampul.neb 05/29/19 Prednisone 10 mg PO UD #30 tab 05/29/19 Following Prescrptions Were Given to Patient: Ipratropium/Albuterol Sulfate [Duoneb] 3 ml INHALATION Q6HWA.RT #1 ampul.neb Prednisone 10 mg PO UD #30 tab Prescription Printed Guaifenesin/Codeine [Robitussin AC] 10 ml PO Q6H PRN PRN 7 Days #240 ml PRN Reason: Cough Transmission Status: Received by MAGO MCFARLAND[address] Primary Care Physician: Rogelio Green DO [Primary Care Provider] - Please Follow Up With: Jaguar Dos Santos DO When: in 2 weeks Please Follow Up With: Jayson Ayon MD When: as directed Please Follow Up With: Rogelio Green DO Disposition: Home Minutes spent on discharge:: 34 Patient Condition:: Stable Medical Necessity - Tobacco Use Smoking Status: Former smoker Meaningful Use Info Meaningful Use Diagnoses (Choose all that apply): None applicable Code Visit Inpatient E&M: 29107 [facility] Hosp
--- NOTE | 2019-05-30 13:55 | CASEMGMT ---
NEREYDA HUBER Discharge Follow-Up Phone Call. Betsy: 13 Strata: 4 Discharge Date: 05/29/19 Adm Dx: Acute Resp Failure w/Pneumonia, Lung Mass Call to pt to inquire about how he has been doing since being discharged from the hospital. , Gabrielle, answered and stated pt was napping and asked if she could answer questions. She states pt is doing well and not having any issues. She states they were able to cherry picker operator part of the Robitussin but needs to return today to cherry picker operator the rest, b/c they didn't have enough at the pharmacy yesterday to complete the order. She states they already had the Duoneb so she did not have to cherry picker operator more of that. She states they will be calling today to make the follow up appts. She denies having any questions/concerns. She thanked NEREYDA HUBER for calling to check up on her . NEREYDA HUBER thanked pt for choosing [facility]. Maricruz WHEELER RN, CM
[2019-05-30 15:40] LABS: Pathologist Comment/Body Fluid Reviewed
[2019-05-31 13:22] LABS: pH, Body Fluid 11254 7.5 (Not Estab.)
[2019-05-31 15:41] LABS: Cytology, Body Fluid / CSF SEE PATHOLOGY REPORT
== END 2019-05-29 18:55 | disposition home or self-care (01) | DRG 194 ==
LOC: ED 07:48 → MS2 10:25 → MS3 11:28 → PCU 11:34 → ICU 14:27 → PCU 05-27 18:29
PROVIDERS: Internal Medicine Critical Care Medicine; Admitting Provider Internal Medicine; Emergency Provider Emergency Medicine; Family Provider Family Medicine; PCP Family Medicine; Visit Provider Internal Medicine
DX: J18.9 Pneumonia, unspecified organism (principal); J90 Pleural effusion, not elsewhere classified; J44.0 Chronic obstructive pulmonary disease with (acute) lower respiratory infection; J44.1 Chronic obstructive pulmonary disease with (acute) exacerbation; C34.92 Malignant neoplasm of unspecified part of left bronchus or lung; I25.10 Atherosclerotic heart disease of native coronary artery without angina pectoris; I10 Essential (primary) hypertension; E66.9 Obesity, unspecified; K20.8 Other esophagitis; Y84.2 Radiological procedure and radiotherapy as the cause of abnormal reaction of the patient, or of later complication, without mention of misadventure at the time of the procedure; I48.0 Paroxysmal atrial fibrillation; E78.5 Hyperlipidemia, unspecified; Z87.891 Personal history of nicotine dependence; Z79.82 Long term (current) use of aspirin; Z68.30 Body mass index [BMI] 30.0-30.9, adult; Z95.5 Presence of coronary angioplasty implant and graft; Z79.02 Long term (current) use of antithrombotics/antiplatelets
CPT/HCPCS: 32555; 36415; 36591; 71045; 71046; 71275; 80048; 80076; 81001; 82945; 82962; 83605; 83615; 83735; 83880; 83986; 84156; 84157; 84443; 84484; 85025; 85610; 85730; 86140; 87040; 87070; 87075; 87205; 87449; 87633; 87641; 88108; 88305; 88313; 88341; 88342; 89050; 93005; 93306; 94640; 94667; 94668; 97110; 97162; 97166; 97530; 97535; 99251; 99285; J7030; J7040; J7050; J7120; Q9957; Q9967; A4216; C8929; G0463

== ENCOUNTER 2019-06-13 15:50 | Inpatient (IN) | payer MEDICARE, SELFPAY ==
[2016-12-24 11:34] VITALS: BMI 28.1
[2019-06-13] VITALS (13 sets, daily range): BP systolic 87–112; BP diastolic 60–81; PULSE 76–119; RESP 12–28; TEMP 35.8–37; O2SAT 86–98; BMI 30.4; BMI 32.5
--- NOTE | 2019-06-13 16:20 | EKG12_ITS ---
Test Reason : SOB Blood Pressure : / mmHG Vent. Rate : 117 BPM Atrial Rate : 234 BPM P-R Int : 000 ms QRS Dur : 088 ms QT Int : 376 ms P-R-T Axes : 000 -20 120 degrees QTc Int : 524 ms Atrial flutter with variable A-V block Possible Anterior infarct , age undetermined ST & T wave abnormality, consider lateral ischemia Abnormal ECG Confirmed by ELEAZAR RODRIGUEZ, NIRMAL ([id number]), video tape editor DELORES JONES ([id number]) on 06/14/2019 11:22:51 AM Referred By: Elina Berrios Confirmed By:NIRMAL BUSH MD
--- NOTE | 2019-06-13 16:22 | RAD_ITS ---
STUDY: X-RAY CHEST REASON FOR EXAM: Male, 73 years old. Shortness of breath. TECHNIQUE: Single frontal view of the chest. COMPARISON: May 29, 2019 FINDINGS: Stable right internal jugular catheter. Hyperexpansion of the left lung with diffuse interstitial pattern unchanged. Increased opacities at the right base representing atelectasis or early/developing pneumonia. Stable bilateral pleural effusions, right greater than left. Cardiomegaly unchanged. Normal mediastinum and tessa. Normal visualized pulmonary arteries. Normal visualized aortic arch and descending thoracic aorta. Normal visualized thoracic spine. Normal visualized ribs, clavicles, and shoulders. There is no demonstrated abnormality of the visualized soft tissue structures of the upper abdomen. RAD/Chest 1 View (Portable) IMPRESSION: Cardiomegaly with hyperexpansion of the left lung unchanged. Increased opacities at right base as described, representing atelectasis or early/developing pneumonia. No acute finding. Electronically Signed: Ezio Rincon MD at 16:41 EST , Service support ,
[2019-06-13] MEDS: Ipratropium/Albuterol Sulfate 3 ML AMPUL.NEB INHALATION ×3 (16:28→23:00)
--- NOTE | 2019-06-13 16:29 | ED.DCSUM_ITS ---
History of Present Illness Chief Complaint: Shortness of Breath Informant: Patient Onset: Days Context: Gradual Onset Timing: Continuous Current Severity: Moderate Maximum Severity: Severe Narrative: The patient presents to the emergency department shortness of breath. The patient was recently hospitalized for symptomatic pleural effusion and community-acquired pneumonia. He does have recurrent lung cancer. He states that he was recently hospitalized, but since his discharge, he really has not felt any better. He states he is had significant exertional dyspnea. He was just recently started on Lasix and is only taken 1 dose. He has had some increased lower extremity edema. He denies any fevers. He has had scant cough. He does describe orthopnea and generalized malaise. Prior similar symptoms: Yes Recent Illness/Hospitalization: Yes Past Medical History - Allergies and Home Meds Allergies/Adverse Reactions: Allergies No Known Allergies Allergy (Verified 06/13/19 14:53) Prior records reviewed: Yes Past Medical History: - Surgical History: appendectomy, - - Cardiac stents. Smoking Status: Former smoker - Family History Maternal Family History: Family History (Last Reviewed 06/13/19 @ 15:18 by CLARISSA Pedroza) Father Heart disease Mother Cancer Brother Diabetes Son Atrial fibrillation Family History: Reports: Cancer - Lung cancer Paternal Family History: Family History (Last Reviewed 06/13/19 @ 15:18 by CLARISSA Pedroza) Father Heart disease Mother Cancer Brother Diabetes Son Atrial fibrillation Family History: Reports: Heart Disease Sibling Family History: Family History (Last Reviewed 06/13/19 @ 15:18 by CLARISSA Pedroza) Father Heart disease Mother Cancer Brother Diabetes Son Atrial fibrillation Family History: Reports: Diabetes Review of Systems General: Denies: Chills, Fever, Sweats Eyes: Denies: Visual changes - bilaterally, Diplopia ENT: Denies: Rhinorrhea, Sore throat Cardiovascular: Denies: Chest pain, Palpitations Respiratory: Reports: Dyspnea, Cough. Denies: Dyspnea on exertion Gastrointestinal: Denies: Abdominal pain, Nausea, Vomiting, Diarrhea, Melena, Hematochezia Genitourinary: Denies: Dysuria, Hematuria, Frequency Musculoskeletal: Denies: Back pain, Extremity Pain Skin: Denies: Rash, Wounds Neurological: Denies: Headache, Weakness, Numbness Physical Exam Vital Signs/Narrative: Vital Signs Temp Pulse Resp BP Pulse Ox 06/13/19 15:51 98.6 F 119 H 23 H 93/60 86 Inital Vital Signs reviewed: Yes General: Well nourished, Well developed, No Acute Distress Head: Normocephalic, Atraumatic Eyes: Perrl, EOMI ENT: Moist mucous membranes, No rhinorrhea Neck: Supple, Nontender Cardiovascular: Regular rate, Regular rhythm, No murmurs Respiratory: No distress, Chest nontender, Rales, Decreased Air Movement Abdomen: Soft, Nontender, Nondistended, Normal bowel sounds Back: Nontender, Normal Inspection Extremities: Nontender, Edema Skin: Normal color, No rash Neurological: Alert, Oriented x3, Cranial nerves II-XII grossly intact, Normal Strength, Normal Sensation Psychological: Normal affect, Normal Mood Diagnostic/Tx/Re-eval Chest X-Ray - ED: 1 View, Right Infiltrate, Right Effusion, Left Effusion Clinical Impression(s) from Imaging Studies Chest X-Ray 06/13/19 16:22 IMPRESSION: Cardiomegaly with hyperexpansion of the left lung unchanged. Increased opacities at right base as described, representing atelectasis or early/developing pneumonia. No acute finding. Electronically Signed: Ezio Rincon MD at 16:41 EST , Service support , Abnormal Lab Results 06/13/19 06/13/19 06/13/19 16:50 16:50 16:50 WBC 7.5 RBC 4.07 L Hgb 12.7 L Hct 40.5 MCV 99.5 H MCH 31.2 MCHC 31.4 L RDW Std Deviation 55.1 H RDW Coeff of Jamie 15.0 H Plt Count 82 L MPV 10.8 Immature Gran % (Auto) 0.500 Neut % (Auto) 80.5 H Lymph % (Auto) 10.1 L [place] % (Auto) 7.9 Eos % (Auto) 0.9 Baso % (Auto) 0.1 Absolute Neuts (auto) 6.0 Absolute Lymphs (auto) 0.76 L Nucleated RBC % 0 Sodium 141 Potassium 4.1 Chloride 105 Carbon Dioxide 32.0 Anion Gap 4 L BUN 21 H Creatinine 1.04 Estim Creat Clear Calc 64.20 Est GFR (MDRD) Af Amer 90 Est GFR (MDRD) Non-Af 74 BUN/Creatinine Ratio 20.2 H Glucose 157 H Lactic Acid 1.8 Calcium 8.6 Troponin I < 0.015 B-Natriuretic Peptide 06/13/19 16:50 WBC RBC Hgb Hct MCV MCH MCHC RDW Std Deviation RDW Coeff of Jamie Plt Count MPV Immature Gran % (Auto) Neut % (Auto) Lymph % (Auto) [place] % (Auto) Eos % (Auto) Baso % (Auto) Absolute Neuts (auto) Absolute Lymphs (auto) Nucleated RBC % Sodium Potassium Chloride Carbon Dioxide Anion Gap BUN Creatinine Estim Creat Clear Calc Est GFR (MDRD) Af Amer Est GFR (MDRD) Non-Af BUN/Creatinine Ratio Glucose Lactic Acid Calcium Troponin I B-Natriuretic Peptide 268.2 H - Rhythm Strip Rhythm Strip: Sinus Rhythm Rate: 80 Ectopy: None - Medical Decision Making Patient presents to the emergency department shortness of breath. He does have rales more than snf up. He was placed on BiPAP. He was given nebulized breathing treatments and steroids. X-ray was obtained. He does have a developing infiltrate in his right base. His lactic acid was normal. His blood pressure has been stable. Blood cultures were obtained. The patient was started on broad-spectrum antibiotics given his recent hospitalization. With his BiPAP requirement and soft blood pressure, the patient will be admitted he is comfortable with this plan of care. Impression 1. Healthcare associated pneumonia 2. Sepsis 3. Hypoxia ED Disposition - Plan for ED Patient:
[2019-06-13] MEDS: MethylPREDNISolone 125 MG/2 ML Vial IV (17:01)
[2019-06-13 17:22] LABS: Absolute Lymphocyte Count 0.76 X10^3/uL (0.83-4.51); Basophil# 0.01 X10^3/uL; Basophil% 0.1 % (0-1); Eosinophil# 0.07 X10^3/uL; Eosinophils% 0.9 % (0-5); Hematocrit 40.5 % (40-54); Hemoglobin 12.7 g/dL (13.0-16.5); Lymphocyte # 0.76 X10^3/ul (4.0); Lymphocyte % 10.1 % (19-41); Mean Corp Hgb Conc 31.4 g/dL (32-36); Mean Corpuscular Hgb 31.2 pg (27.0-32.0); Mean Corpuscular Volume 99.5 fL (80-94); Mean Platelet Vol. 10.8 fl (6.2-12.0); Monocyte# 0.59 X10^3/uL; Monocyte% 7.9 % (0-10); NRBC Flagged by Analyzer 0 % (0-5); Neutrophil # 6.02 X10^3/uL (2.7-7.7); Neutrophil % 80.5 % (47-70); POSITIVE COUNT YES; Platelet Count 82 K/mm3 (150-450); RBC Distribution Width SD 55.1 fl (35.1-43.9); Red Blood Count 4.07 M/mm3 (4.6-6.2); White Blood Count 7.5 K/mm3 (4.4-11.0)
[2019-06-13 17:29] LABS: Differential Indicated SCAN CRITERIA MET
[2019-06-13 17:31] LABS: Lactic Acid 1.8 mmol/L (0.4-1.9)
[2019-06-13 17:34] LABS: Anion Gap 4 (5-15); BUN 21 mg/dL (7-18); BUN/Creat Ratio 20.2 RATIO (10-20); Calcium,Total 8.6 mg/dL (8.5-10.1); Chloride 105 mmol/L (98-107); Creatinine, Serum 1.04 mg/dL (0.70-1.30); EST Glomerular Filtration Rate 74 mL/min (>60); Est Glom Filt Rate - Afr Amer 90 mL/min (>60); Glucose 157 mg/dL (74-106); Potassium 4.1 mmol/L (3.5-5.1); Sodium Level 141 mmol/L (136-145)
[2019-06-13 18:05] LABS: BNP,B-Type NATRIURETIC PEPTIDE 268.2 pg/mL (0-100)
--- NOTE | 2019-06-13 18:14 | HP.PCM_ITS ---
<Leda Houser - Last Filed: 06/13/19 19:04> Problem List (1) PND (post-nasal drip) Status: Chronic (2) GERD (gastroesophageal reflux disease) Status: Chronic (3) History of DVT (deep vein thrombosis) Status: Chronic (4) H/O percutaneous transluminal coronary angioplasty Status: Chronic Comment: PTCA/stent of the mid LAD, prox 1st diag, prox RCA 08/13/10; PTCA/BETO of the Ostial/Prox 1st diag 12/15/16 (5) Hx of appendectomy Status: Chronic (6) Chemotherapy management, encounter for Status: Inactive (7) Thrombocytopenia Status: Chronic (8) Anemia Status: Chronic Qualifiers: Anemia type: unspecified type Qualified Code(s): D64.9 - Anemia, unspecified (9) Community-acquired pneumonia Status: Acute (10) Acute and chronic respiratory failure with hypoxia Status: Acute (11) Pancytopenia Status: Chronic (12) Right upper lobe pulmonary nodule Status: Chronic (13) Non-small cell carcinoma of left lung, stage 3 Status: Chronic (14) Paroxysmal atrial fibrillation Status: Chronic (15) Atherosclerotic heart disease of [place] coronary artery without angina pectoris Status: Chronic Qualifiers: [place] vs. transplanted heart: [place] heart Qualified Code(s): I25.10 - Atherosclerotic heart disease of [place] coronary artery without angina pectoris Comment: PTCA/stent of the mid LAD, prox 1st diag, prox RCA 08/13/10; PTCA/BETO of the Ostial/Prox 1st diag 12/15/16 (16) Long-term use of high-risk medication Status: Chronic (17) Primary small cell malignant neoplasm of lung, stage 3 Status: Chronic (18) Nocturnal hypoxia Status: Chronic (19) Radiation esophagitis Status: Chronic (20) HLD (hyperlipidemia) Status: Chronic Qualifiers: Hyperlipidemia type: unspecified Qualified Code(s): E78.5 - Hyperlipidemia, unspecified (21) Small cell lung cancer Status: Chronic (22) History of coronary artery stent placement Status: Chronic Comment: PTCA/stent of the mid LAD, prox 1st diag, prox RCA 08/13/10; PTCA/BETO of the Ostial/Prox 1st diag 12/15/16 (23) Obesity (BMI 30-39.9) Status: Chronic (24) Smoking addiction Status: Chronic (25) COPD (chronic obstructive pulmonary disease) Status: Chronic Qualifiers: COPD type: unspecified COPD Qualified Code(s): J44.9 - Chronic obstructive pulmonary disease, unspecified (26) HTN (hypertension) Status: Chronic Qualifiers: Hypertension type: essential hypertension Qualified Code(s): I10 - Essential (primary) hypertension History of Present Illness Date of Admission: 06/13/19 Chief Complaint: Shortness of breath. The patient is a 73 year old M who presents the emergency room from pulmonary office due to increased shortness of breath. Patient was recently discharged 05/29/2019 following treatment for pneumonia. He was also noted to have malignant pleural effusion at that time. Patient wearing BiPAP and at bedside provides much of HPI. reports patient completed prednisone/antibiotic treatment on Wednesday and his symptoms have worsened since that time. Patient states that since his prior admission, he has not been able to lie flat due to dyspnea. He denies increased cough, fever, chills. During pulmonary office visit today he was noted to have low blood pressure, increased heart rate and hypoxia despite supplemental oxygen. It is suspected that this is likely progression of metastatic lung cancer which may be worsened by underlying unresolved pneumonia. Past Medical History Past Medical History (Chronic Problems): Chronic Problems (Last Reviewed 06/13/19 @ 15:18 by CLARISSA Pedroza) PND (post-nasal drip) (Chronic) GERD (gastroesophageal reflux disease) (Chronic) History of DVT (deep vein thrombosis) (Chronic) H/O percutaneous transluminal coronary angioplasty (Chronic) PTCA/stent of the mid LAD, prox 1st diag, prox RCA 08/13/10; PTCA/BETO of the Ostial/Prox 1st diag 12/15/16 Hx of appendectomy (Chronic) Thrombocytopenia (Chronic) Anemia (Chronic) Pancytopenia (Chronic) Right upper lobe pulmonary nodule (Chronic) Non-small cell carcinoma of left lung, stage 3 (Chronic) Paroxysmal atrial fibrillation (Chronic) Atherosclerotic heart disease of [place] coronary artery without angina pectoris (Chronic) PTCA/stent of the mid LAD, prox 1st diag, prox RCA 08/13/10; PTCA/BETO of the Ostial/Prox 1st diag 12/15/16 Long-term use of high-risk medication (Chronic) Primary small cell malignant neoplasm of lung, stage 3 (Chronic) Nocturnal hypoxia (Chronic) Radiation esophagitis (Chronic) HLD (hyperlipidemia) (Chronic) Small cell lung cancer (Chronic) History of coronary artery stent placement (Chronic) PTCA/stent of the mid LAD, prox 1st diag, prox RCA 08/13/10; PTCA/BETO of the Ostial/Prox 1st diag 12/15/16 Obesity (BMI 30-39.9) (Chronic) Smoking addiction (Chronic) COPD (chronic obstructive pulmonary disease) (Chronic) HTN (hypertension) (Chronic) Medical History: Medical History (Last Reviewed 06/13/19 @ 15:18 by Janessa Guajardo NP-C) PND (post-nasal drip) (Chronic) R09.82 GERD (gastroesophageal reflux disease) (Chronic) K21.9 History of DVT (deep vein thrombosis) (Chronic) Z86.718 Paroxysmal atrial fibrillation (Chronic) I48.0 Atherosclerotic heart disease of [place] coronary artery without angina pectoris (Chronic) I25.10 PTCA/stent of the mid LAD, prox 1st diag, prox RCA 08/13/10; PTCA/BETO of the Ostial/Prox 1st diag 12/15/16 Long-term use of high-risk medication (Chronic) Z79.899 Primary small cell malignant neoplasm of lung, stage 3 (Chronic) C34.90 Nocturnal hypoxia (Chronic) G47.34 Radiation esophagitis (Chronic) K20.8 HLD (hyperlipidemia) (Chronic) E78.5 Small cell lung cancer (Chronic) C34.90 Obesity (BMI 30-39.9) (Chronic) E66.9 Smoking addiction (Chronic) F17.200 COPD (chronic obstructive pulmonary disease) (Chronic) J44.9 HTN (hypertension) (Chronic) I10 Bradycardia (Resolved) R00.1 Chest pain (Resolved) R07.9 Acute cystitis (Inactive) N30.00 Adjustment and management of vascular access device (Inactive) Z45.2 Chemotherapy induced nausea and vomiting (Inactive) R11.2, T45.1X5A DVT of upper extremity (deep vein thrombosis) (Inactive) I82.629 Encephalopathy (Inactive) G93.40 Lightheadedness (Inactive) R42 Pancytopenia (Inactive) D61.818 Sepsis (Inactive) A41.9 Allergies No Known Allergies Allergy (Verified 06/13/19 14:53) Home Medications: Ambulatory Orders Medication Instructions Recorded Multivit-Min/FA/Lycopen/Lutein 1 ea PO DAILY 10/14/16 [Centrum Silver Tablet] aspirin 81 mg tablet,delayed 81 mg PO DAILY 12/19/17 release ascorbic acid (vitamin C) 500 mg 500 mg PO DAILY cap 12/20/17 capsule albuterol sulfate HFA 90 1 - 2 puff INHALATION Q4H PRN PRN 02/21/18 mcg/actuation aerosol inhaler #1 device cholecalciferol (vitamin D3) 5,000 5,000 unit PO DAILY 06/21/18 unit capsule clopidogrel 75 mg tablet 75 mg PO DAILY #90 tab 10/04/18 metoprolol tartrate 50 mg tablet 50 mg PO BID #180 tab 03/29/19 nitroglycerin 0.4 mg sublingual 0.4 mg SUBLINGUAL PRN PRN #25 tab 04/07/19 tablet Amiodarone HCl [Cordarone] 100 mg PO DAILY tab 05/29/19 Ipratropium/Albuterol Sulfate 3 ml INHALATION Q6HWA.RT #1 05/29/19 [Duoneb] ampul.neb furosemide 40 mg tablet 40 mg PO DAILY #30 tab 06/12/19 Simvastatin 20 mg PO QHS 06/13/19 Surgical History: Surgical History (Last Reviewed 06/13/19 @ 15:18 by Janessa Guajardo NP-C) H/O percutaneous transluminal coronary angioplasty (Chronic) Z98.61 PTCA/stent of the mid LAD, prox 1st diag, prox RCA 08/13/10; PTCA/BETO of the Ostial/Prox 1st diag 12/15/16 Hx of appendectomy (Chronic) Z90.49 History of coronary artery stent placement (Chronic) Z95.5 PTCA/stent of the mid LAD, prox 1st diag, prox RCA 08/13/10; PTCA/BETO of the Ostial/Prox 1st diag 12/15/16 Surgical History: appendectomy, - - Cardiac stents. Psychiatric History: No pertinent psych hx Lives: Spouse/ Significant Other Smoking Status: Former smoker Alcohol: None Drugs: None - *Family History Maternal Family History: Family History (Last Reviewed 06/13/19 @ 18:45 by CLARISSA Cardoza) Father Heart disease Mother Cancer Brother Diabetes Son Atrial fibrillation History Items: Cancer - Lung cancer Paternal Family History: Family History (Last Reviewed 06/13/19 @ 18:45 by CLARISSA Cardoza) Father Heart disease Mother Cancer Brother Diabetes Son Atrial fibrillation History Items: Heart Disease Sibling Family History: Family History (Last Reviewed 06/13/19 @ 18:45 by CLARISSA Cardoza) Father Heart disease Mother Cancer Brother Diabetes Son Atrial fibrillation History Items: Diabetes Review of Systems Constitutional: Reports: Malaise. Denies: Chills, Fever, Weight Change HEENT: Denies: Head Aches, Sinus Congestion, Sinus Drainage Cardiovascular: Reports: Edema - Lower extremity. Denies: Chest Pain, Light Headedness, Palpitations, Syncope Respiratory: Reports: Cough, Shortness of Breath Gastrointestinal: Denies: Abdominal Pain, Nausea, Vomiting Genitourinary: Denies: Dysuria Musculoskeletal: Denies: Joint Pain, Joint Tenderness Skin: Denies: Rash, Wounds Neurological: Denies: Numbness, Tingling, Focal weakness Psychiatric: Denies: Anxiety, Depression, Homicidal Ideations, Suicidal Ideations Hematologic/ Lymphatic: Denies: Easy Bruising, Easy Bleeding VTE Information - Inpt Only VTE Present on Admission: No VTE Mechan Device Prophylaxis: None VTE Pharm Prophylaxis ordered?: Yes - Physical Exam Vitals/I&O's: Vital Signs Temp Pulse Resp BP Pulse Ox 96.7 F L 110 H 24 H 91/61 95 06/13/19 17:07 06/13/19 17:53 06/13/19 17:53 06/13/19 17:53 06/13/19 17:53 Oxygen Flow Rate (L/min) 2 Oxygen Delivery Method Bi-pap Weight: 220 lb Body Mass Index (BMI) 32.5 General: Alert, Oriented x3, Cooperative, - - BiPAP in place, appears in moderate respiratory distress HEENT: Atraumatic, PERRLA, EOMI, Normocephalic Oral: Dry Mucosa Neck: Supple, No JVD, Negative Carotid Bruits Lungs: Diminished, Rales, Wheezes Cardiovascular: - - Atrial fibrillation, tachycardic Abdomen: Bowel Sounds Present, Soft, Non Tender, Non-Distended, Obese Extremities: No clubbing, No cyanosis, Edema - +1-2 bilateral lower extremity edema Skin: No rashes, No breakdown Musculoskeletal: No Tenderness to Palpation of Joints or Extremities Neurological: Cranial nerves II-XII grossly intact, Neuro grossly intact Psych/Mental Status: Normal Affect, Appropriate Laboratory Results 06/13/19 16:50: WBC 7.5, RBC 4.07 L, Hgb 12.7 L, Hct 40.5, MCV 99.5 H, MCH 31.2, MCHC 31.4 L, RDW Std Deviation 55.1 H, RDW Coeff of Jamie 15.0 H, Plt Count 82 L, MPV 10.8, Immature Gran % (Auto) 0.500, Neut % (Auto) 80.5 H, Lymph % (Auto) 10.1 L, [place] % (Auto) 7.9, Eos % (Auto) 0.9, Baso % (Auto) 0.1, Absolute Neuts (auto) 6.0, Absolute Lymphs (auto) 0.76 L, Nucleated RBC % 0 06/13/19 16:50: Sodium 141, Potassium 4.1, Chloride 105, Carbon Dioxide 32.0, Anion Gap 4 L, BUN 21 H, Creatinine 1.04, Estim Creat Clear Calc 64.20, Est GFR (MDRD) Af Amer 90, Est GFR (MDRD) Non-Af 74, BUN/Creatinine Ratio 20.2 H, Glucose 157 H, Calcium 8.6, Troponin I < 0.015 06/13/19 16:50: Lactic Acid 1.8 06/13/19 16:50: B-Natriuretic Peptide 268.2 H Current Medications Vancomycin HCl 1,500 mg/ (Sodium Chloride) 530 mls @ 250 mls/hr IV X1 ONE Stop: 06/13/19 19:07 Assessment/Plan All Active Problems (Last Reviewed 06/13/19 @ 15:18 by Janessa Guajardo, VIOLETTE-C) Community-acquired pneumonia (Acute) Acute and chronic respiratory failure with hypoxia (Acute) Bradycardia (Resolved) Chest pain (Resolved) 1. Acute on chronic hypoxic respiratory failure-multifactorial secondary to progression of metastatic lung cancer, healthcare associated pneumonia and COPD exacerbation. Continue BiPAP. Consult pulmonary medicine. 2. Acute sepsis secondary to healthcare associated pneumonia-initiated on IV vancomycin and IV Zosyn. Patient recently completed treatment for community- acquired pneumonia. Chest x-ray admission shows increasing opacities at the right base, possible developing pneumonia. Afebrile, no leukocytosis. Patient tachypneic, tachycardic and hypotensive on admission. IV fluids per sepsis protocol. Albuterol and DuoNeb aerosols. Check sputum culture. 3. Acute exacerbation of chronic COPD-IV Solu-Medrol. Check respiratory panel. Albuterol and DuoNeb aerosols. 4. 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 Recent right thoracentesis 05/29/2019. Fluid pathology demonstrated atypical cells, suspicious for malignancy. Consult oncology, follows with Dr. Ayon. Pulmonary medicine consult as previously noted. 5. A.fib with RVR/Hx of Paroxysmal atrial fibrillation-rate currently improved. Continue aspirin. Metoprolol on hold due to hypotension. Rate currently in 70s. Resume metoprolol when BP improved. 6. History of DVT-no longer on anticoagulation. 7. Hyperlipidemia- continue statin. 8. CAD status post PCI-on aspirin, Plavix, statin, beta-darius. DVT prophylaxis- Lovenox sc CODE STATUS: Discussed with patient and . Patient states your job is to save my life. Patient will remain full code and is agreeable to intubation if this is found to be necessary. This patient was seen by CLARISSA Cardoza under the supervision of Dr. Berrios. <Elina Berrios - Last Filed: 06/13/19 22:13> History of Present Illness The patient is a 73 year old M [] Past Medical History Medical History: Medical History (Last Reviewed 06/13/19 @ 15:18 by CLARISSA Pedroza) PND (post-nasal drip) (Chronic) R09.82 GERD (gastroesophageal reflux disease) (Chronic) K21.9 History of DVT (deep vein thrombosis) (Chronic) Z86.718 Paroxysmal atrial fibrillation (Chronic) I48.0 Atherosclerotic heart disease of [place] coronary artery without angina pectoris (Chronic) I25.10 PTCA/stent of the mid LAD, prox 1st diag, prox RCA 08/13/10; PTCA/BETO of the Ostial/Prox 1st diag 12/15/16 Long-term use of high-risk medication (Chronic) Z79.899 Primary small cell malignant neoplasm of lung, stage 3 (Chronic) C34.90 Nocturnal hypoxia (Chronic) G47.34 Radiation esophagitis (Chronic) K20.8 HLD (hyperlipidemia) (Chronic) E78.5 Small cell lung cancer (Chronic) C34.90 Obesity (BMI 30-39.9) (Chronic) E66.9 Smoking addiction (Chronic) F17.200 COPD (chronic obstructive pulmonary disease) (Chronic) J44.9 HTN (hypertension) (Chronic) I10 Bradycardia (Resolved) R00.1 Chest pain (Resolved) R07.9 Acute cystitis (Inactive) N30.00 Adjustment and management of vascular access device (Inactive) Z45.2 Chemotherapy induced nausea and vomiting (Inactive) R11.2, T45.1X5A DVT of upper extremity (deep vein thrombosis) (Inactive) I82.629 Encephalopathy (Inactive) G93.40 Lightheadedness (Inactive) R42 Pancytopenia (Inactive) D61.818 Sepsis (Inactive) A41.9 Allergies No Known Allergies Allergy (Verified 06/13/19 19:52) Surgical History: Surgical History (Last Reviewed 06/13/19 @ 15:18 by CLARISSA Pedroza) H/O percutaneous transluminal coronary angioplasty (Chronic) Z98.61 PTCA/stent of the mid LAD, prox 1st diag, prox RCA 08/13/10; PTCA/BETO of the Ostial/Prox 1st diag 12/15/16 Hx of appendectomy (Chronic) Z90.49 History of coronary artery stent placement (Chronic) Z95.5 PTCA/stent of the mid LAD, prox 1st diag, prox RCA 08/13/10; PTCA/BETO of the Ostial/Prox 1st diag 12/15/16 - *Family History Maternal Family History: Family History (Last Reviewed 06/13/19 @ 18:45 by CLARISSA Cardoza) Father Heart disease Mother Cancer Brother Diabetes Son Atrial fibrillation Paternal Family History: Family History (Last Reviewed 06/13/19 @ 18:45 by CLARISSA Cardoza) Father Heart disease Mother Cancer Brother Diabetes Son Atrial fibrillation Sibling Family History: Family History (Last Reviewed 06/13/19 @ 18:45 by CLARISSA Cardoza) Father Heart disease Mother Cancer Brother Diabetes Son Atrial fibrillation - Physical Exam Vitals/I&O's: Vital Signs Temp Pulse Resp BP Pulse Ox 97.6 F L 79 18 100/79 98 06/13/19 19:45 06/13/19 19:45 06/13/19 19:45 06/13/19 19:45 06/13/19 19:45 Oxygen Flow Rate (L/min) 2 Oxygen Delivery Method Bi-pap Weight: 100 kg Body Mass Index (BMI) 32.5 Intake and Output for Last 24 Hours 06/11/19 06/12/19 06/13/19 23:59 23:59 23:59 Intake Total 630 / 630 Balance 630 / 630 Laboratory Results 06/13/19 16:50: WBC 7.5, RBC 4.07 L, Hgb 12.7 L, Hct 40.5, MCV 99.5 H, MCH 31.2, MCHC 31.4 L, RDW Std Deviation 55.1 H, RDW Coeff of Jamie 15.0 H, Plt Count 82 L, MPV 10.8, Immature Gran % (Auto) 0.500, Neut % (Auto) 80.5 H, Lymph % (Auto) 10.1 L, [place] % (Auto) 7.9, Eos % (Auto) 0.9, Baso % (Auto) 0.1, Absolute Neuts (auto) 6.0, Absolute Lymphs (auto) 0.76 L, Nucleated RBC % 0, Differential Comment SCANNED, Platelet Estimate MOD DEC, Plt Morphology Comment COMMENT, Anisocytosis 1+, Tear Drop Cells RARE, Ovalocytes RARE 06/13/19 16:50: Sodium 141, Potassium 4.1, Chloride 105, Carbon Dioxide 32.0, Anion Gap 4 L, BUN 21 H, Creatinine 1.04, Estim Creat Clear Calc 64.20, Est GFR (MDRD) Af Amer 90, Est GFR (MDRD) Non-Af 74, BUN/Creatinine Ratio 20.2 H, Glucose 157 H, Calcium 8.6, Troponin I < 0.015 06/13/19 16:50: Lactic Acid 1.8 06/13/19 16:50: B-Natriuretic Peptide 268.2 H 06/13/19 21:29: POC Glucose 159 H Current Medications Acetaminophen (Tylenol) 650 mg PO Q6H PRN PRN PRN Reason: Pain Score 1-3/Temp > 100.7 F Albuterol/Ipratropium (Duoneb) 3 ml INHALATION Q4HWA.RT CROW Amiodarone HCl (Cordarone) 100 mg PO DAILY CROW Aspirin (Ecotrin) 81 mg PO DAILY CROW Atorvastatin Calcium (Lipitor) 10 mg PO QHS CROW Clopidogrel Bisulfate (Plavix) 75 mg PO DAILY [facility] Dextrose (D50w Syringe) 0 gm IV X1 PRN; Protocol PRN Reason: Hypoglycemia Glucagon () 1 mg IM .X1 PRN PRN Reason: Hypoglycemia Sodium Chloride () 1,000 mls @ 75 mls/hr IV .[id number] CROW Stop: 06/14/19 09:01 Last Admin: 06/13/19 21:27 Dose: 75 mls/hr Documented by: Vancomycin IV Pharmacy to Dose (1 ea/ Sodium Chloride) 500 mls @ 250 mls/hr IV X1 PRN; Protocol PRN Reason: Rx to Dose Piperacillin Sod/Tazobactam (Sod 3.375 gm/ Sodium Chloride) 50 mls @ 12.5 mls/hr IV Q8 CROW Sodium Chloride () 250 mls @ 15 mls/hr IV .[id number] PRN PRN Reason: Saline Flush Vancomycin HCl 1,500 mg/ (Sodium Chloride) 530 mls @ 250 mls/hr IV Q12H CROW Insulin Human Lispro (Humalog Kwikpen (Bkc)) 0 unit SC ACHS CROW; Protocol Multivitamins/Minerals (Multivitamin With Minerals) 1 tablet PO DAILY@0800 CROW Nitroglycerin (Nitrostat) 0.4 mg SUBLINGUAL Q5M PRN PRN Reason: CARDIAC/CHEST PAIN Ondansetron HCl (Zofran) 4 mg IV Q8H PRN PRN PRN Reason: NAUSEA/VOMITING Sodium Chloride () 10 - 40 ml IV UD PRN PRN Reason: SALINE FLUSH Assessment/Plan This patient was seen in conjunction with Leda Houser NP. I have independently interviewed and examined the patient and reviewed pertinent historical, laboratory, and other data. Please refer to her note for patient's presentation, findings, and recommendations. 73-year-old male with past medical history of COPD, small cell lung cancer with recurrent malignant pleural effusion who was recently admitted and discharged after treatment for pneumonia. Patient comes in with progressive sore shortness of breath despite having completed prednisone and antibiotics. He has associated orthopnea and PND. Denied any fever or chills or increase cough. He was seen in the pulmonology office and referred to the emergency department. Vitals were reviewed -stable Physical Exam: Gen: On BiPAP, appears uncomfortable, not pale, not jaundiced, alert oriented x3 CVS:HS I +II, regular, irregular RESP: Diminished at lung bases, scattered wheezes GI: BS present and normal, nontender, no palpable organs EXT: Bilateral pedal edema +1 Labs reviewed: ASSESSMENT: 1. Acute on chronic hypoxic respiratory failure 2. Sepsis secondary to pneumonia 3. A. fib with RVR 4. Small cell lung CA 5. Acute COPD exacerbation 6. Hyperlipidemia 7. CAD status post PCI Meds reviewed Plan: Continue on BiPAP, check ABG Continue on IV vancomycin and Zosyn Continue on breathing treatments Pulmonology consult IV steroids Continue on metoprolol, amiodarone Code status - FULL CODE Discussed in detail with the patient explaining the various types of CODE STATUS-full code, DNR CCA, DNR CC. Patient and his insisted on being full code and with everything done to keep him alive. Time spent discussing CODE STATUS 18 minutes Code Visit Inpatient E&M: 75980 Init Hosp L3 Procedures: 66143 Advncd Care Plan 30 Min
[2019-06-13 18:36] LABS: Differential Comment SCANNED; Platelet Estimate MOD DEC (ADEQ)
[2019-06-13 18:37] LABS: Anisocytosis 1+; Ovalocyte RARE; Tear Drop Cell RARE
--- NOTE | 2019-06-13 20:36 | PCM.RX.CS ---
Consult Pharmacy has been consulted to manage selected antiobiotic: Vancomycin Type of Consult: New start Suspected Infection: Pneumonia Prior Doses of Antibiotics Received/Current Regimen: ER DOSE OF VANCOMYCIN IV 1500MG X 1 GIVEN ON 06/13 @ 1828 Labs: Sodium 141 mmol/L (136-145) 06/13/19 16:50 Potassium 4.1 mmol/L (3.5-5.1) 06/13/19 16:50 Chloride 105 mmol/L (98-107) 06/13/19 16:50 Carbon Dioxide 32.0 mmol/L (21.0-32.0) 06/13/19 16:50 Anion Gap 4 (5-15) L 06/13/19 16:50 BUN 21 mg/dL (7-18) H 06/13/19 16:50 Creatinine 1.04 mg/dL (0.70-1.30) 06/13/19 16:50 Est GFR (MDRD) Af Amer 90 mL/min (>60) 06/13/19 16:50 Est GFR (MDRD) Non-Af 74 mL/min (>60) 06/13/19 16:50 BUN/Creatinine Ratio 20.2 RATIO (10-20) H 06/13/19 16:50 Glucose 157 mg/dL (74-106) H 06/13/19 16:50 Weight used for dosin kg Estimated Creatinine Clearance: 74.7 Goal Trough: 15-20 mcg/mL Pharmacy Plan for Drug Dosin. Will start vancomycin IV 1500mg Q12H 2. Will start on 06/14 @ 0600 3. Trough scheduled prior to 4th dose Pharmacy Service will continue to monitor and adjust dosing as required. Labs to be done on [date and time ordered]: 06/15/19 @ 2100
[2019-06-13] MEDS: 0.9% Normal Saline 1,000 ML 75 ML IV (21:27)
[2019-06-13 21:35] LABS: Bedside Glucose 159 mg/dL (70-110)
[2019-06-13 22:55] LABS: Allen Test POS; Base Excess 5 mmol/L (-2 to +2); Bicarbonate 29.5 mmol/L (22-26); Blood Gas Specimen Type ART; EPAP 8; FI02 30; IPAP 14; PO2 77 mmHG (75-100); RR 12; SITE R Radial; SO2 95 % (95-99); Total Carbon Dioxide 31 mmol/L; pCO2 44.4 mmHg (35-45); pH 7.43 (7.35-7.45)
[2019-06-13] MEDS: Atorvastatin Calcium 10 MG Tablet PO (23:20)
[2019-06-14] VITALS (18 sets, daily range): BP systolic 93–121; BP diastolic 63–76; PULSE 64–95; RESP 12–29; TEMP 36.5–36.9; O2SAT 92–96
[2019-06-14] MEDS: 0.9% Saline Lock 10 ML Syringe IV ×5 (04:45→15:19)
[2019-06-14 05:08] LABS: Absolute Lymphocyte Count 0.28 X10^3/uL (0.83-4.51); Basophil# 0.01 X10^3/uL; Basophil% 0.2 % (0-1); Hematocrit 37.2 % (40-54); Hemoglobin 11.8 g/dL (13.0-16.5); Lymphocyte # 0.28 X10^3/ul (4.0); Lymphocyte % 4.4 % (19-41); Mean Corp Hgb Conc 31.7 g/dL (32-36); Mean Corpuscular Hgb 31.1 pg (27.0-32.0); Mean Corpuscular Volume 98.2 fL (80-94); Mean Platelet Vol. 10.3 fl (6.2-12.0); Monocyte# 0.07 X10^3/uL; Monocyte% 1.1 % (0-10); NRBC Flagged by Analyzer 0 % (0-5); Neutrophil # 5.96 X10^3/uL (2.7-7.7); Neutrophil % 93.7 % (47-70); POSITIVE COUNT YES; POSITIVE DIFFERENTIAL YES; Platelet Count 80 K/mm3 (150-450); RBC Distribution Width CV 15.1 % (11.6-14.6); RBC Distribution Width SD 54.7 fl (35.1-43.9); Red Blood Count 3.79 M/mm3 (4.6-6.2); White Blood Count 6.4 K/mm3 (4.4-11.0)
[2019-06-14 05:09] LABS: Differential Indicated SCAN CRITERIA MET
[2019-06-14 05:52] LABS: Differential Comment SCANNED
[2019-06-14 05:53] LABS: Platelet Estimate SLT DEC (ADEQ)
--- NOTE | 2019-06-14 05:55 | CT_ITS ---
STUDY: CT CHEST WITH CONTRAST REASON FOR EXAM: Male, 73 years old. Shortness of breath. Recent pneumonia. History of lung cancer treated with chemotherapy. RADIATION DOSAGE (If Supplied By Facility): CTDIvol = ( 15.13 ) mGy, DLP = ( 794.47 ) mGycm TECHNIQUE: Transaxial imaging was performed following intravenous administration of IV 100mL Isovue-370. Individualized dose optimization techniques were used for this CT. COMPARISON: Chest x-ray 06/13/2019. CTA chest 05/25/2019. CT scan chest 04/11/2019. FINDINGS: There is an approximately 11 x 8.5 x 6.5 cm masslike density in the right hilum and perihilar regions of the right upper, middle, and lower lobes. This is not significantly different from the last previous study. There is narrowing/compression or invasion of bronchial branches extending through this region as well as compression of some pulmonary venous branches. There is no significant narrowing of the pulmonary arterial branches extending through the region.. There is mild chronic interstitial prominence in the left lung. There is a small to moderately large right pleural effusion which is not significantly changed. There is calcified and noncalcified pleural plaque formation on the left. Normal heart and pericardium. There are coronary artery calcifications. There are enlarged pretracheal, subcarinal, AP window, and left mediastinal lymph nodes, consistent with metastatic disease. These are not significantly changed in size from the last previous study. There are mildly enlarged left hilar lymph nodes which are not significantly changed. Normal enhanced pulmonary arteries. There is mild atherosclerotic calcification of the thoracic aorta. There are bridging osteophytes at multiple contiguous levels of the spine, consistent with DISH (diffuse idiopathic skeletal hyperostosis). There are small cysts in the spleen and visualized right kidney. CT/Chest WITH Contrast IMPRESSION: Right hilar and perihilar mass lesion is not significantly changed from the May study. Mediastinal and left hilar lymphadenopathy is not significantly changed. Right pleural effusion is not significantly changed. Chronic pleural and parenchymal changes in the left lung. Atherosclerosis. No new abnormalities are demonstrated. Electronically Signed: Rahat Pope MD at 6:53 EST , Service support ,
[2019-06-14 06:03] LABS: ALB/GLOB Ratio 0.9 RATIO (0.9-2.4); AST(SGOT) 10 U/L (15-37); Alanine Aminotransfer ALT/SGPT 20 U/L (16-61); Albumin, Serum 2.8 g/dL (3.2-5.0); Alkaline Phosphatase 49 U/L (45-117); Anion Gap 5 (5-15); BUN 20 mg/dL (7-18); BUN/Creat Ratio 21.1 RATIO (10-20); Calcium,Total 8.1 mg/dL (8.5-10.1); Chloride 105 mmol/L (98-107); Creatinine, Serum 0.95 mg/dL (0.70-1.30); EST Glomerular Filtration Rate 83 mL/min (>60); Est Glom Filt Rate - Afr Amer 101 mL/min (>60); Estimated Creatinine Clearance 70.29 ml/min; Globulin 3.2 g/dL (2.2-4.2); Glucose 174 mg/dL (74-106); Potassium 4.3 mmol/L (3.5-5.1); Sodium Level 141 mmol/L (136-145)
[2019-06-14] MEDS: Ipratropium/Albuterol Sulfate 3 ML AMPUL.NEB INHALATION ×4 (06:48→18:43)
[2019-06-14 06:51] LABS: Bedside Glucose 159 mg/dL (70-110)
[2019-06-14] MEDS: Aspirin E.C. 81 MG Tablet PO (08:16)
[2019-06-14] MEDS: Multivitamins,Ther W-Minerals Tablet 1 TABLET PO (08:16)
[2019-06-14] MEDS: Amiodarone 200 MG Tablet 100 MG PO (08:16)
[2019-06-14] MEDS: Metoprolol Tartrate 50 MG Tablet PO ×2 (08:17→21:05)
[2019-06-14] MEDS: Clopidogrel Bisulfate 75 MG Tablet PO (08:17)
[2019-06-14] MEDS: Insulin Lispro 100 UNIT/ML INSULN.PEN SC ×3 (11:06→21:05)
[2019-06-14 11:21] LABS: Bedside Glucose 175 mg/dL (70-110)
--- NOTE | 2019-06-14 13:48 | CON.PCM_ITS ---
Problem List (1) GERD (gastroesophageal reflux disease) Status: Chronic Qualifiers: Esophagitis presence: with esophagitis Qualified Code(s): K21.0 - Gastro- esophageal reflux disease with esophagitis (2) History of DVT (deep vein thrombosis) Status: Chronic (3) Hx of appendectomy Status: Chronic (4) Thrombocytopenia Status: Chronic (5) Acute and chronic respiratory failure with hypoxia Status: Acute (6) Pancytopenia Status: Chronic (7) Non-small cell carcinoma of left lung, stage 3 Status: Chronic (8) Paroxysmal atrial fibrillation Status: Chronic (9) Nocturnal hypoxia Status: Chronic (10) Radiation esophagitis Status: Chronic (11) HLD (hyperlipidemia) Status: Chronic Qualifiers: Hyperlipidemia type: unspecified Qualified Code(s): E78.5 - Hyperlipidemia, unspecified (12) Small cell lung cancer Status: Chronic (13) History of coronary artery stent placement Status: Chronic Comment: PTCA/stent of the mid LAD, prox 1st diag, prox RCA 08/13/10; PTCA/BETO of the Ostial/Prox 1st diag 12/15/16 (14) Obesity (BMI 30-39.9) Status: Chronic (15) COPD (chronic obstructive pulmonary disease) Status: Chronic Qualifiers: COPD type: unspecified COPD Qualified Code(s): J44.9 - Chronic obstructive pulmonary disease, unspecified (16) HTN (hypertension) Status: Chronic Qualifiers: Hypertension type: essential hypertension Qualified Code(s): I10 - Essential (primary) hypertension Reason for Consult Date of Consultation: 06/14/19 Reason for Consultation: Pneumonia History of Present Illness: The patient is a 73 year old M, with past medical history listed below and well- known to me from previous hospitalizations, who presented to [facility] on 06/13/2019 secondary to progressive shortness of breath. Patient was recently hospitalized 3 weeks ago, but after discharge felt like he slowly continued to get worse. Patient did not believe that he made it back to his baseline. Patient has had significant exertional dyspnea. Patient had been initiated on Lasix, but did not feel that this was helping. Patient was noted to have some increased lower extremity edema, scant cough, orthopnea and generalized malaise. In the ER, patient was noted to have rales on exam and was placed on BiPAP therapy. Patient was also given breathing treatments and steroids. X-ray shows an infiltrate in the right base. Patient was started on healthcare associated antibiotics and admitted to the PCU for further management. Overnight in the PCU, patient did not have any hemodynamic instability. Patient was able to be weaned to nasal cannula oxygen this morning. Patient reports that he never really got back to baseline following last hospitalization. Patient states that he has been using his Acapella just about every hour with good production, but notices it has become more green and yellow recently. Patient denied any chest pain or hemoptysis. Patient does report significant fatigue and saturations dropping into the mid 80s with any exertion. Patient has also attempted using nebulizers at home every 5-6 hours with minimal improvement. Given insurance issues, patient was unable to have a PET scan to check on the status of his current malignancy. Patient states he is not receiving any chemotherapy at this time and is supposed to have a repeat CT scan next month to see if further intervention is required. Patient is denying any dysuria, sinus congestion or trauma. Review of systems otherwise negative from a constitutional, HEENT, respiratory, cardiovascular, GI, genitourinary, musculoskeletal, skin, neurologic, psychiatric and hematologic system unless stated above. Past Medical History Past Medical History (Chronic Problems): Chronic Problems (Last Reviewed 06/13/19 @ 15:18 by CLARISSA Pedroza) PND (post-nasal drip) (Chronic) GERD (gastroesophageal reflux disease) (Chronic) History of DVT (deep vein thrombosis) (Chronic) H/O percutaneous transluminal coronary angioplasty (Chronic) PTCA/stent of the mid LAD, prox 1st diag, prox RCA 08/13/10; PTCA/BETO of the Ostial/Prox 1st diag 12/15/16 Hx of appendectomy (Chronic) Thrombocytopenia (Chronic) Anemia (Chronic) Pancytopenia (Chronic) Right upper lobe pulmonary nodule (Chronic) Non-small cell carcinoma of left lung, stage 3 (Chronic) Paroxysmal atrial fibrillation (Chronic) Atherosclerotic heart disease of [place] coronary artery without angina pectoris (Chronic) PTCA/stent of the mid LAD, prox 1st diag, prox RCA 08/13/10; PTCA/BETO of the Ostial/Prox 1st diag 12/15/16 Long-term use of high-risk medication (Chronic) Primary small cell malignant neoplasm of lung, stage 3 (Chronic) Nocturnal hypoxia (Chronic) Radiation esophagitis (Chronic) HLD (hyperlipidemia) (Chronic) Small cell lung cancer (Chronic) History of coronary artery stent placement (Chronic) PTCA/stent of the mid LAD, prox 1st diag, prox RCA 08/13/10; PTCA/BETO of the Ostial/Prox 1st diag 12/15/16 Obesity (BMI 30-39.9) (Chronic) Smoking addiction (Chronic) COPD (chronic obstructive pulmonary disease) (Chronic) HTN (hypertension) (Chronic) Medical History: Medical History (Last Reviewed 06/13/19 @ 15:18 by Janessa Guajardo NP-C) PND (post-nasal drip) (Chronic) R09.82 GERD (gastroesophageal reflux disease) (Chronic) K21.9 History of DVT (deep vein thrombosis) (Chronic) Z86.718 Paroxysmal atrial fibrillation (Chronic) I48.0 Atherosclerotic heart disease of [place] coronary artery without angina pectoris (Chronic) I25.10 PTCA/stent of the mid LAD, prox 1st diag, prox RCA 08/13/10; PTCA/BETO of the Ostial/Prox 1st diag 12/15/16 Long-term use of high-risk medication (Chronic) Z79.899 Primary small cell malignant neoplasm of lung, stage 3 (Chronic) C34.90 Nocturnal hypoxia (Chronic) G47.34 Radiation esophagitis (Chronic) K20.8 HLD (hyperlipidemia) (Chronic) E78.5 Small cell lung cancer (Chronic) C34.90 Obesity (BMI 30-39.9) (Chronic) E66.9 Smoking addiction (Chronic) F17.200 COPD (chronic obstructive pulmonary disease) (Chronic) J44.9 HTN (hypertension) (Chronic) I10 Bradycardia (Resolved) R00.1 Chest pain (Resolved) R07.9 Acute cystitis (Inactive) N30.00 Adjustment and management of vascular access device (Inactive) Z45.2 Chemotherapy induced nausea and vomiting (Inactive) R11.2, T45.1X5A DVT of upper extremity (deep vein thrombosis) (Inactive) I82.629 Encephalopathy (Inactive) G93.40 Lightheadedness (Inactive) R42 Pancytopenia (Inactive) D61.818 Sepsis (Inactive) A41.9 Allergies No Known Allergies Allergy (Verified 06/13/19 19:52) Home Medications: Ambulatory Orders Medication Instructions Recorded Multivit-Min/FA/Lycopen/Lutein 1 ea PO DAILY 10/14/16 [Centrum Silver Tablet] aspirin 81 mg tablet,delayed 81 mg PO DAILY 12/19/17 release ascorbic acid (vitamin C) 500 mg 500 mg PO DAILY cap 12/20/17 capsule albuterol sulfate HFA 90 1 - 2 puff INHALATION Q4H PRN PRN 02/21/18 mcg/actuation aerosol inhaler #1 device cholecalciferol (vitamin D3) 5,000 5,000 unit PO DAILY 06/21/18 unit capsule clopidogrel 75 mg tablet 75 mg PO DAILY #90 tab 10/04/18 metoprolol tartrate 50 mg tablet 50 mg PO BID #180 tab 03/29/19 nitroglycerin 0.4 mg sublingual 0.4 mg SUBLINGUAL PRN PRN #25 tab 04/07/19 tablet Amiodarone HCl [Cordarone] 100 mg PO DAILY tab 05/29/19 Ipratropium/Albuterol Sulfate 3 ml INHALATION Q6HWA.RT #1 05/29/19 [Duoneb] ampul.neb furosemide 40 mg tablet 40 mg PO DAILY #30 tab 06/12/19 Simvastatin 20 mg PO QHS 06/13/19 Surgical History: Surgical History (Last Reviewed 06/13/19 @ 15:18 by CLARISSA Pedroza) H/O percutaneous transluminal coronary angioplasty (Chronic) Z98.61 PTCA/stent of the mid LAD, prox 1st diag, prox RCA 08/13/10; PTCA/BETO of the Ostial/Prox 1st diag 12/15/16 Hx of appendectomy (Chronic) Z90.49 History of coronary artery stent placement (Chronic) Z95.5 PTCA/stent of the mid LAD, prox 1st diag, prox RCA 08/13/10; PTCA/BETO of the Ostial/Prox 1st diag 12/15/16 Surgical History: appendectomy, - - Cardiac stents. Psychiatric History: No pertinent psych hx Lives: Spouse/ Significant Other Smoking Status: Former smoker Alcohol: None Drugs: None - *Family History Maternal Family History: Family History (Last Reviewed 06/13/19 @ 18:45 by CLARISSA Cardoza) Father Heart disease Mother Cancer Brother Diabetes Son Atrial fibrillation History Items: Cancer - Lung cancer Paternal Family History: Family History (Last Reviewed 06/13/19 @ 18:45 by CLARISSA Cardoza) Father Heart disease Mother Cancer Brother Diabetes Son Atrial fibrillation History Items: Heart Disease Sibling Family History: Family History (Last Reviewed 06/13/19 @ 18:45 by CLARISSA Cardoza) Father Heart disease Mother Cancer Brother Diabetes Son Atrial fibrillation History Items: Diabetes Review of Systems Comment: See HPI Objective: All imaging was personally reviewed. CT scan does show right hilar mass with lower lobe infiltrate and right pleural effusion. Review of previous thoracentesis shows rare atypical cells and an exudative effusion. No definitive diagnosis of malignant cells in previous pleural fluid from 05/29/2019. Previous PFT (02/07/2018): Mild restrictive ventilatory defect with a reduction of the diffusion capacity out of proportion (FVC 76%, FEV1 71%, TLC 70%, DLCO 46%) - Physical Exam Vitals/I&O's: Vital Signs Temp Pulse Resp BP Pulse Ox 36.9 C 64 18 121/73 H 94 06/14/19 09:15 06/14/19 10:06 06/14/19 10:06 06/14/19 09:15 06/14/19 09:15 Oxygen Flow Rate (L/min) 3 Oxygen Delivery Method Nasal Cannula Weight: 100.4 kg Body Mass Index (BMI) 32.5 Intake and Output for Last 24 Hours 06/12/19 06/13/19 06/14/19 23:59 23:59 23:59 Intake Total 630 / 630 1452.5 / 1452.5 Output Total 400 / 400 Balance 630 / 530 1052.5 / 1052.5 General: Alert, Oriented x3, Cooperative, No apparent distress, Well developed, Well nourished, - - No conversational dyspnea noted. HEENT: Atraumatic, PERRLA, EOMI, Normocephalic, - - No scleral icterus or injection noted Oral: Moist Mucosa, No Gingival or Mucosal Lesions/ Ulcerations Neck: Supple, No Nodes, Trachea Midline, JVD, Right Lungs: No rhonchi, Diminished - Right greater than left, Rales, Wheezes, - - Dullness to percussion at the right base Cardiovascular: Normal S1, Normal S2, No murmurs, Irregular Rate, No rub noted, No Gallop Abdomen: Bowel Sounds Present, Soft, Non Tender, Non-Distended, Obese Extremities: No clubbing, No cyanosis, Capillary Refill Less than 3 Seconds, Edema Skin: No rashes, No breakdown Musculoskeletal: No Tenderness to Palpation of Joints or Extremities Lymphatic: No Cervical, Supraclavicular, or Inguinal Adenopathy Neurological: Cranial nerves II-XII grossly intact, Neuro grossly intact, Motor Exam 5/5 strength throughout Psych/Mental Status: Alert and oriented to time, place, person, mood and affect Microbiology Past 72 Hours 06/14/19 07:12 Sputum, Expectorated/Coughed Gram Stain - Final 06/13/19 23:40 Mucosa - Nasopharyngeal Respiratory Panel (PCR) - Final Laboratory Results 06/13/19 16:50: WBC 7.5, RBC 4.07 L, Hgb 12.7 L, Hct 40.5, MCV 99.5 H, MCH 31.2, MCHC 31.4 L, RDW Std Deviation 55.1 H, RDW Coeff of Jamie 15.0 H, Plt Count 82 L, MPV 10.8, Immature Gran % (Auto) 0.500, Neut % (Auto) 80.5 H, Lymph % (Auto) 10.1 L, [place] % (Auto) 7.9, Eos % (Auto) 0.9, Baso % (Auto) 0.1, Absolute Neuts (auto) 6.0, Absolute Lymphs (auto) 0.76 L, Nucleated RBC % 0, Differential Comment SCANNED, Platelet Estimate MOD DEC, Plt Morphology Comment COMMENT, Anisocytosis 1+, Tear Drop Cells RARE, Ovalocytes RARE 06/13/19 16:50: Sodium 141, Potassium 4.1, Chloride 105, Carbon Dioxide 32.0, Anion Gap 4 L, BUN 21 H, Creatinine 1.04, Estim Creat Clear Calc 64.20, Est GFR (MDRD) Af Amer 90, Est GFR (MDRD) Non-Af 74, BUN/Creatinine Ratio 20.2 H, Glucose 157 H, Calcium 8.6, Troponin I < 0.015 06/13/19 16:50: Lactic Acid 1.8 06/13/19 16:50: B-Natriuretic Peptide 268.2 H 06/13/19 21:29: POC Glucose 159 H 06/13/19 22:50: Specimen Type ART, Sample Site R Radial, pH 7.43, Bicarbonate Actual 29.5 H, POC Total CO2 31, Base Excess 5 H, O2 Saturation 95, O2 % 30, ABG pCO2 44.4, ABG pO2 77, Logan Test POS, Respiration Rate 12, O2 Delivery Device Bi / C PAP, EPAP 8, IPAP 14, Blood Gas Notified Whom HOSP 06/14/19 04:42: WBC 6.4, RBC 3.79 L, Hgb 11.8 L, Hct 37.2 L, MCV 98.2 H, MCH 31.1, MCHC 31.7 L, RDW Std Deviation 54.7 H, RDW Coeff of Jamie 15.1 H, Plt Count 80 L, MPV 10.3, Immature Gran % (Auto) 0.600, Neut % (Auto) 93.7 H, Lymph % (Auto) 4.4 L, [place] % (Auto) 1.1, Eos % (Auto) 0.0, Baso % (Auto) 0.2, Absolute Neuts (auto) 6.0, Absolute Lymphs (auto) 0.28 L, Nucleated RBC % 0, Differential Comment SCANNED, Platelet Estimate SLT 06/14/19 04:42: Sodium 141, Potassium 4.3, Chloride 105, Carbon Dioxide 31.0, Anion Gap 5, BUN 20 H, Creatinine 0.95, Estim Creat Clear Calc 70.29, Est GFR (MDRD) Af Amer 101, Est GFR (MDRD) Non-Af 83, BUN/Creatinine Ratio 21.1 H, Glucose 174 H, Calcium 8.1 L, Total Bilirubin 0.50, AST 10 L, ALT 20, Alkaline Phosphatase 49, Total Protein 6.0 L, Albumin 2.8 L, Globulin 3.2, Albumin/Globulin Ratio 0.9 06/14/19 06:40: POC Glucose 159 H 06/14/19 11:03: POC Glucose 175 H Current Medications Acetaminophen (Tylenol) 650 mg PO Q6H PRN PRN PRN Reason: Pain Score 1-3/Temp > 100.7 F Albuterol/Ipratropium (Duoneb) 3 ml INHALATION Q4HWA.RT CROW Last Admin: 06/14/19 10:06 Dose: 3 ml Documented by: Amiodarone HCl (Cordarone) 100 mg PO DAILY [facility] Last Admin: 06/14/19 08:16 Dose: 100 mg Documented by: Aspirin (Ecotrin) 81 mg PO DAILY [facility] Last Admin: 06/14/19 08:16 Dose: 81 mg Documented by: Atorvastatin Calcium (Lipitor) 10 mg PO QHS [facility] Last Admin: 06/13/19 23:20 Dose: 10 mg Documented by: Clopidogrel Bisulfate (Plavix) 75 mg PO DAILY [facility] Last Admin: 06/14/19 08:17 Dose: 75 mg Documented by: Glucagon () 1 mg IM .X1 PRN PRN Reason: Hypoglycemia Vancomycin IV Pharmacy to Dose (1 ea/ Sodium Chloride) 500 mls @ 250 mls/hr IV X1 PRN; Protocol PRN Reason: Rx to Dose Piperacillin Sod/Tazobactam (Sod 3.375 gm/ Sodium Chloride) 50 mls @ 12.5 mls/hr IV Q8 [facility] Last Admin: 06/14/19 13:46 Dose: 12.5 mls/hr Documented by: Sodium Chloride () 250 mls @ 15 mls/hr IV .[id number] PRN PRN Reason: Saline Flush Vancomycin HCl 1,500 mg/ (Sodium Chloride) 530 mls @ 250 mls/hr IV Q12H [facility] Last Infusion: 06/14/19 09:18 Dose: Infused Documented by: Dextrose (Dextrose 10%-Water) 250 mls @ 999 mls/hr IV X1 PRN; Protocol PRN Reason: HYPOGLYCEMIA Insulin Human Lispro (Humalog Kwikpen (Bkc)) 0 unit SC ACHS [facility]; Protocol Last Admin: 06/14/19 11:06 Dose: 1 units Documented by: Methylprednisolone (Solu-Medrol) 40 mg IV Q8 [facility] Last Admin: 06/14/19 13:46 Dose: 40 mg Documented by: Metoprolol Tartrate (Lopressor (Beta Sukhwinder)) 50 mg PO BID [facility] Last Admin: 06/14/19 08:17 Dose: 50 mg Documented by: Multivitamins/Minerals (Multivitamin With Minerals) 1 tablet PO DAILY@0800 [facility] Last Admin: 06/14/19 08:16 Dose: 1 tablet Documented by: Nitroglycerin (Nitrostat) 0.4 mg SUBLINGUAL Q5M PRN PRN Reason: CARDIAC/CHEST PAIN Ondansetron HCl (Zofran) 4 mg IV Q8H PRN PRN PRN Reason: NAUSEA/VOMITING Sodium Chloride () 10 - 40 ml IV UD PRN PRN Reason: SALINE FLUSH Last Admin: 06/14/19 13:46 Dose: 10 ml Documented by: Assessment/Plan All Active Problems (Last Reviewed 06/13/19 @ 15:18 by Janessa Guajardo, VIOLETTE-C) Community-acquired pneumonia (Acute) Acute and chronic respiratory failure with hypoxia (Acute) Bradycardia (Resolved) Chest pain (Resolved) RECOMMENDATIONS: 1. Consider surgery consultation for possible Pleurx catheter 2. Continue to wean supplemental oxygen as tolerated. 3. Will likely need to hold aspirin and Plavix 4. Initiate vest therapy for pulmonary toileting 5. Follow-up in our office in 2 weeks IMPRESSIONS: 1. Acute hypoxemic respiratory failure Unclear etiology at this point. Patient may have an element of postobstructive pneumonia versus malignant pleural effusion. Previously, 1100 cc of fluid was removed from the chest showing atypical cells. Patient does have stage III disease. Another possible etiology would be postobstructive pneumonia, but this would have to be addressed with an endobronchial stent for palliation and this can only be completed at a tertiary Medical Center. Reasonable to initiate on healthcare associated antibiotics. We will add vest therapy to help with pulmonary toileting. Would hold Plavix and aspirin now for possible intervention. Given high suspicion for malignant pleural effusion and rapid reaccumulation, Pleurx catheter will likely be more appropriate then repeated thoracentesis 2. 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 Ayon. Patient appears to have progression of lung cancer. 3. History of coronary artery disease/paroxysmal atrial fibrillation/hyperlipidemia The patient's home aspirin and Plavix are going to be held, should thoracentesis need to be performed. 4. CODE status: Informed full CODE STATUS Code Visit Inpatient E&M: 64845 Init Hosp L3
--- NOTE | 2019-06-14 13:57 | PN_ITS ---
<Leda Houser - Last Filed: 06/14/19 14:51> Subjective: Patient seen and examined. Reports significant improvement in breathing. Family at bedside. Patient denies cough, fever, chills. Currently on 3 L nasal cannula. Reports lower extremity swelling which patient reports is improved from prior. - Physical Exam Vitals/I&O's: Vital Signs Temp Pulse Resp BP Pulse Ox 98.5 F 64 18 121/73 H 94 06/14/19 09:15 06/14/19 10:06 06/14/19 10:06 06/14/19 09:15 06/14/19 09:15 Oxygen Flow Rate (L/min) 3 Oxygen Delivery Method Nasal Cannula Weight: 221 lb 5.506 oz Body Mass Index (BMI) 32.5 Intake and Output for Last 24 Hours 06/12/19 06/13/19 06/14/19 23:59 23:59 23:59 Intake Total 630 / 630 1452.5 / 1452.5 Output Total 400 / 400 Balance 630 / 530 1052.5 / 1052.5 General: Alert, Oriented x3, Cooperative HEENT: Atraumatic, PERRLA, EOMI, Normocephalic Neck: Supple, No JVD, Negative Carotid Bruits Lungs: Diminished, Wheezes - Right side Cardiovascular: Regular rate, Regular Rhythm, Normal S1, Normal S2, No murmurs Abdomen: Bowel Sounds Present, Soft, Non Tender, Non-Distended Extremities: No edema - +2 BLLE Skin: No rashes, No breakdown Musculoskeletal: No Tenderness to Palpation of Joints or Extremities Neurological: Cranial nerves II-XII grossly intact, Neuro grossly intact Psych/Mental Status: Normal Affect, Appropriate Microbiology Past 72 Hours 06/14/19 07:12 Sputum, Expectorated/Coughed Gram Stain - Final 06/13/19 23:40 Mucosa - Nasopharyngeal Respiratory Panel (PCR) - Final Laboratory Results 06/13/19 16:50: WBC 7.5, RBC 4.07 L, Hgb 12.7 L, Hct 40.5, MCV 99.5 H, MCH 31.2, MCHC 31.4 L, RDW Std Deviation 55.1 H, RDW Coeff of Jamie 15.0 H, Plt Count 82 L, MPV 10.8, Immature Gran % (Auto) 0.500, Neut % (Auto) 80.5 H, Lymph % (Auto) 10.1 L, [place] % (Auto) 7.9, Eos % (Auto) 0.9, Baso % (Auto) 0.1, Absolute Neuts (auto) 6.0, Absolute Lymphs (auto) 0.76 L, Nucleated RBC % 0, Differential Comment SCANNED, Platelet Estimate MOD DEC, Plt Morphology Comment COMMENT, Anisocytosis 1+, Tear Drop Cells RARE, Ovalocytes RARE 06/13/19 16:50: Sodium 141, Potassium 4.1, Chloride 105, Carbon Dioxide 32.0, Anion Gap 4 L, BUN 21 H, Creatinine 1.04, Estim Creat Clear Calc 64.20, Est GFR (MDRD) Af Amer 90, Est GFR (MDRD) Non-Af 74, BUN/Creatinine Ratio 20.2 H, Glucose 157 H, Calcium 8.6, Troponin I < 0.015 06/13/19 16:50: Lactic Acid 1.8 06/13/19 16:50: B-Natriuretic Peptide 268.2 H 06/13/19 21:29: POC Glucose 159 H 06/13/19 22:50: Specimen Type ART, Sample Site R Radial, pH 7.43, Bicarbonate Actual 29.5 H, POC Total CO2 31, Base Excess 5 H, O2 Saturation 95, O2 % 30, ABG pCO2 44.4, ABG pO2 77, Logan Test POS, Respiration Rate 12, O2 Delivery Device Bi / C PAP, EPAP 8, IPAP 14, Blood Gas Notified Whom HOSP 06/14/19 04:42: WBC 6.4, RBC 3.79 L, Hgb 11.8 L, Hct 37.2 L, MCV 98.2 H, MCH 31.1, MCHC 31.7 L, RDW Std Deviation 54.7 H, RDW Coeff of Jamie 15.1 H, Plt Count 80 L, MPV 10.3, Immature Gran % (Auto) 0.600, Neut % (Auto) 93.7 H, Lymph % (Auto) 4.4 L, [place] % (Auto) 1.1, Eos % (Auto) 0.0, Baso % (Auto) 0.2, Absolute Neuts (auto) 6.0, Absolute Lymphs (auto) 0.28 L, Nucleated RBC % 0, Differential Comment SCANNED, Platelet Estimate SLT DEC 19 04:42: Sodium 141, Potassium 4.3, Chloride 105, Carbon Dioxide 31.0, Anion Gap 5, BUN 20 H, Creatinine 0.95, Estim Creat Clear Calc 70.29, Est GFR (MDRD) Af Amer 101, Est GFR (MDRD) Non-Af 83, BUN/Creatinine Ratio 21.1 H, Glucose 174 H, Calcium 8.1 L, Total Bilirubin 0.50, AST 10 L, ALT 20, Alkaline Phosphatase 49, Total Protein 6.0 L, Albumin 2.8 L, Globulin 3.2, Albumin/Globulin Ratio 0.9 06/14/19 06:40: POC Glucose 159 H 06/14/19 11:03: POC Glucose 175 H Current Medications Acetaminophen (Tylenol) 650 mg PO Q6H PRN PRN PRN Reason: Pain Score 1-3/Temp > 100.7 F Albuterol/Ipratropium (Duoneb) 3 ml INHALATION Q4HWA.RT [facility] Last Admin: 06/14/19 10:06 Dose: 3 ml Documented by: Amiodarone HCl (Cordarone) 100 mg PO DAILY [facility] Last Admin: 06/14/19 08:16 Dose: 100 mg Documented by: Aspirin (Ecotrin) 81 mg PO DAILY [facility] Last Admin: 06/14/19 08:16 Dose: 81 mg Documented by: Atorvastatin Calcium (Lipitor) 10 mg PO QHS [facility] Last Admin: 06/13/19 23:20 Dose: 10 mg Documented by: Clopidogrel Bisulfate (Plavix) 75 mg PO DAILY [facility] Last Admin: 06/14/19 08:17 Dose: 75 mg Documented by: Glucagon () 1 mg IM .X1 PRN PRN Reason: Hypoglycemia Vancomycin IV Pharmacy to Dose (1 ea/ Sodium Chloride) 500 mls @ 250 mls/hr IV X1 PRN; Protocol PRN Reason: Rx to Dose Piperacillin Sod/Tazobactam (Sod 3.375 gm/ Sodium Chloride) 50 mls @ 12.5 mls/hr IV Q8 [facility] Last Admin: 06/14/19 13:46 Dose: 12.5 mls/hr Documented by: Sodium Chloride () 250 mls @ 15 mls/hr IV .[id number] PRN PRN Reason: Saline Flush Vancomycin HCl 1,500 mg/ (Sodium Chloride) 530 mls @ 250 mls/hr IV Q12H [facility] Last Infusion: 06/14/19 09:18 Dose: Infused Documented by: Dextrose (Dextrose 10%-Water) 250 mls @ 999 mls/hr IV X1 PRN; Protocol PRN Reason: HYPOGLYCEMIA Insulin Human Lispro (Humalog Kwikpen (Bkc)) 0 unit SC ACHS [facility]; Protocol Last Admin: 06/14/19 11:06 Dose: 1 units Documented by: Methylprednisolone (Solu-Medrol) 40 mg IV Q8 [facility] Last Admin: 06/14/19 13:46 Dose: 40 mg Documented by: Metoprolol Tartrate (Lopressor (Beta Sukhwinder)) 50 mg PO BID [facility] Last Admin: 06/14/19 08:17 Dose: 50 mg Documented by: Multivitamins/Minerals (Multivitamin With Minerals) 1 tablet PO DAILY@0800 [facility] Last Admin: 06/14/19 08:16 Dose: 1 tablet Documented by: Nitroglycerin (Nitrostat) 0.4 mg SUBLINGUAL Q5M PRN PRN Reason: CARDIAC/CHEST PAIN Ondansetron HCl (Zofran) 4 mg IV Q8H PRN PRN PRN Reason: NAUSEA/VOMITING Sodium Chloride () 10 - 40 ml IV UD PRN PRN Reason: SALINE FLUSH Last Admin: 06/14/19 13:46 Dose: 10 ml Documented by: Medical Necessity - Tobacco Use Smoking Status: Former smoker Assessment/Plan All Active Problems (Last Reviewed 06/13/19 @ 15:18 by Janessa Guajardo, VIOLETTE-C) Community-acquired pneumonia (Acute) Acute and chronic respiratory failure with hypoxia (Acute) Bradycardia (Resolved) Chest pain (Resolved) 1. Acute on chronic hypoxic respiratory failure-multifactorial suspected secondary to progression of lung cancer and COPD exacerbation. Pulmonary medicine consulted. Continue some oxygen to maintain O2 sat above 90%. 2. SIRS 2/4, currently low further suspicion for healthcare associated pneumonia-continue IV vancomycin and IV Zosyn empirically pending further evaluation. Patient recently completed treatment for community-acquired pneumonia. Chest x-ray admission shows increasing opacities at the right base, possible developing pneumonia. Afebrile, no leukocytosis. Sputum culture pending. 3. Acute exacerbation of chronic COPD-IV Solu-Medrol. Respiratory panel negative. Albuterol and DuoNeb aerosols. 4. 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 Recent right thoracentesis 05/29/2019. Fluid pathology demonstrated atypical cells, suspicious for malignancy. Follows with Dr. Ayon. Pulmonary medicine consult as previously noted. Possible pleurx catheter placement given quick recurrence of fluid. aspirin, plavix on hold. 5. A.fib with RVR/Hx of Paroxysmal atrial fibrillation-rate improved. Continue metoprolol. 6. History of DVT-no longer on anticoagulation. 7. Hyperlipidemia- continue statin. 8. CAD status post PCI-on aspirin, Plavix, statin, beta-sukhwinder. asa, plavix on hold. DVT prophylaxis- Lovenox sc This patient was seen by CLARISSA Cardoza under the supervision of Dr. Cash. <Cesar Cash - Last Filed: 06/14/19 15:53> - Physical Exam Vitals/I&O's: Vital Signs Temp Pulse Resp BP Pulse Ox 36.5 C L 89 14 93/63 96 06/14/19 15:30 06/14/19 15:30 06/14/19 15:30 06/14/19 15:30 06/14/19 15:30 Oxygen Flow Rate (L/min) 3 Oxygen Delivery Method Nasal Cannula Weight: 100.4 kg Body Mass Index (BMI) 32.5 Intake and Output for Last 24 Hours 06/12/19 06/13/19 06/14/19 23:59 23:59 23:59 Intake Total 630 / 630 1452.5 / 1452.5 Output Total 400 / 400 Balance 630 / 530 1052.5 / 1052.5 General: Alert, Cooperative HEENT: Atraumatic, Normocephalic Neck: No Nodes, Trachea Midline Lungs: Diminished, Wheezes, - - DTP in right base Cardiovascular: Regular rate, Regular Rhythm, Normal S1, Normal S2, No murmurs Abdomen: Bowel Sounds Present, Soft, Non Tender, Non-Distended Extremities: No Calf Tenderness, Edema - in distal ankles Skin: No rashes, No breakdown Musculoskeletal: No Tenderness to Palpation of Joints or Extremities, No Muscle Wasting Neurological: Cranial nerves II-XII grossly intact, Neuro grossly intact Psych/Mental Status: Normal Affect, Appropriate Microbiology Past 72 Hours 06/14/19 07:12 Sputum, Expectorated/Coughed Gram Stain - Final 06/13/19 23:40 Mucosa - Nasopharyngeal Respiratory Panel (PCR) - Final Laboratory Results 06/13/19 16:50: WBC 7.5, RBC 4.07 L, Hgb 12.7 L, Hct 40.5, MCV 99.5 H, MCH 31.2, MCHC 31.4 L, RDW Std Deviation 55.1 H, RDW Coeff of Jamie 15.0 H, Plt Count 82 L, MPV 10.8, Immature Gran % (Auto) 0.500, Neut % (Auto) 80.5 H, Lymph % (Auto) 10.1 L, [place] % (Auto) 7.9, Eos % (Auto) 0.9, Baso % (Auto) 0.1, Absolute Neuts (auto) 6.0, Absolute Lymphs (auto) 0.76 L, Nucleated RBC % 0, Differential Comment SCANNED, Platelet Estimate MOD DEC, Plt Morphology Comment COMMENT, Anisocytosis 1+, Tear Drop Cells RARE, Ovalocytes RARE 06/13/19 16:50: Sodium 141, Potassium 4.1, Chloride 105, Carbon Dioxide 32.0, Anion Gap 4 L, BUN 21 H, Creatinine 1.04, Estim Creat Clear Calc 64.20, Est GFR (MDRD) Af Amer 90, Est GFR (MDRD) Non-Af 74, BUN/Creatinine Ratio 20.2 H, Glucose 157 H, Calcium 8.6, Troponin I < 0.015 06/13/19 16:50: Lactic Acid 1.8 06/13/19 16:50: B-Natriuretic Peptide 268.2 H 06/13/19 21:29: POC Glucose 159 H 06/13/19 22:50: Specimen Type ART, Sample Site R Radial, pH 7.43, Bicarbonate Actual 29.5 H, POC Total CO2 31, Base Excess 5 H, O2 Saturation 95, O2 % 30, ABG pCO2 44.4, ABG pO2 77, Logan Test POS, Respiration Rate 12, O2 Delivery Device Bi / C PAP, EPAP 8, IPAP 14, Blood Gas Notified Whom HOSP 06/14/19 04:42: WBC 6.4, RBC 3.79 L, Hgb 11.8 L, Hct 37.2 L, MCV 98.2 H, MCH 31.1, MCHC 31.7 L, RDW Std Deviation 54.7 H, RDW Coeff of Jamie 15.1 H, Plt Count 80 L, MPV 10.3, Immature Gran % (Auto) 0.600, Neut % (Auto) 93.7 H, Lymph % (Auto) 4.4 L, [place] % (Auto) 1.1, Eos % (Auto) 0.0, Baso % (Auto) 0.2, Absolute Neuts (auto) 6.0, Absolute Lymphs (auto) 0.28 L, Nucleated RBC % 0, Differential Comment SCANNED, Platelet Estimate SLT 06/14/19 04:42: Sodium 141, Potassium 4.3, Chloride 105, Carbon Dioxide 31.0, Anion Gap 5, BUN 20 H, Creatinine 0.95, Estim Creat Clear Calc 70.29, Est GFR (MDRD) Af Amer 101, Est GFR (MDRD) Non-Af 83, BUN/Creatinine Ratio 21.1 H, Glucose 174 H, Calcium 8.1 L, Total Bilirubin 0.50, AST 10 L, ALT 20, Alkaline Phosphatase 49, Total Protein 6.0 L, Albumin 2.8 L, Globulin 3.2, Albumin/Globulin Ratio 0.9 06/14/19 06:40: POC Glucose 159 H 06/14/19 11:03: POC Glucose 175 H Current Medications Acetaminophen (Tylenol) 650 mg PO Q6H PRN PRN PRN Reason: Pain Score 1-3/Temp > 100.7 F Albuterol/Ipratropium (Duoneb) 3 ml INHALATION Q4HWA.RT [facility] Last Admin: 06/14/19 15:20 Dose: 3 ml Documented by: Amiodarone HCl (Cordarone) 100 mg PO DAILY [facility] Last Admin: 06/14/19 08:16 Dose: 100 mg Documented by: Atorvastatin Calcium (Lipitor) 10 mg PO QHS [facility] Last Admin: 06/13/19 23:20 Dose: 10 mg Documented by: Furosemide (Lasix) 40 mg IV BID@1000,1800 [facility] Last Admin: 06/14/19 15:33 Dose: Not Given Documented by: Glucagon () 1 mg IM .X1 PRN PRN Reason: Hypoglycemia Vancomycin IV Pharmacy to Dose (1 ea/ Sodium Chloride) 500 mls @ 250 mls/hr IV X1 PRN; Protocol PRN Reason: Rx to Dose Piperacillin Sod/Tazobactam (Sod 3.375 gm/ Sodium Chloride) 50 mls @ 12.5 mls/hr IV Q8 [facility] Last Admin: 06/14/19 13:46 Dose: 12.5 mls/hr Documented by: Sodium Chloride () 250 mls @ 15 mls/hr IV .[id number] PRN PRN Reason: Saline Flush Vancomycin HCl 1,500 mg/ (Sodium Chloride) 530 mls @ 250 mls/hr IV Q12H [facility] Last Infusion: 06/14/19 09:18 Dose: Infused Documented by: Dextrose (Dextrose 10%-Water) 250 mls @ 999 mls/hr IV X1 PRN; Protocol PRN Reason: HYPOGLYCEMIA Insulin Human Lispro (Humalog Kwikpen (Bkc)) 0 unit SC ACHS [facility]; Protocol Last Admin: 06/14/19 11:06 Dose: 1 units Documented by: Methylprednisolone (Solu-Medrol) 40 mg IV Q8 [facility] Last Admin: 06/14/19 13:46 Dose: 40 mg Documented by: Metoprolol Tartrate (Lopressor (Beta Sukhwinder)) 50 mg PO BID [facility] Last Admin: 06/14/19 08:17 Dose: 50 mg Documented by: Multivitamins/Minerals (Multivitamin With Minerals) 1 tablet PO DAILY@0800 [facility] Last Admin: 06/14/19 08:16 Dose: 1 tablet Documented by: Nitroglycerin (Nitrostat) 0.4 mg SUBLINGUAL Q5M PRN PRN Reason: CARDIAC/CHEST PAIN Ondansetron HCl (Zofran) 4 mg IV Q8H PRN PRN PRN Reason: NAUSEA/VOMITING Sodium Chloride () 10 - 40 ml IV UD PRN PRN Reason: SALINE FLUSH Last Admin: 06/14/19 15:19 Dose: 20 ml Documented by: Assessment/Plan Patient seen and examined independently. Data reviewed. I agree with the above note by the nurse practitioner. 1. Pleural effusion * Previously was significant for transudate of effusion. Patient stated that it is worse when he lies flat. Though did have some atypical cells in it, given his known malignancy, certainly could be a malignant effusion. Plan is to diurese to see if removing some fluid with diuresis can help. If not then patient may require another thoracentesis and possible Pleurx catheter 2. Acute on chronic respiratory insufficiency: Continue with diuresis and antibiotics. Vest therapy has been ordered. 3. Systemic inflammatory spine syndrome: Present on arrival. Being treated empirically for sepsis though it is not really convincing for my and that the patient has a pneumonia but met 2 of 4 Sirs criteria which could be related with his respiratory issues and not per se related with underlying infectious process. 4. History of non-small cell as well as small cell lung cancer. Per oncology. 5. Edema: Family very concerned about the swelling in his feet which he generally does so at this time and is improved from their description. Explained to them that there is truly a component of third spacing given his malnutrition and underlying malignancy but we do have to exercise caution in regards to diuresis so that we do not over diuresing causing renal injury. Code Visit Inpatient E&M: 54289 Subs Hosp L3
--- NOTE | 2019-06-14 13:57 | CASEMGMT ---
Addendum entered by Sidra Jon 06/14/19 15:34: Pt/ are still declining HHC/OP therapy at this time and states that nobody ever talked to them about it last time. This RN CM advised her that this RN CM did speak with pt and he declined and states 'well, he doesn't need it anyway.' Pt/ updated on portable concentrator testing to be done at [facility] at this time and states that pt needs the portable concentrator to go home and that [facility] 'screwed it up in the first place, I don't know why this is our problem.' Advised pt/ that CM would continue to follow and for them to notify CM if they have any further questions/concerns/needs, voice understanding. Estella DAWN CM Original Note: READMISSION CHART REVIEW: [facility] with c/o charua2cly with OP antibx, hx lung CA. Pt admitted for 05/25-05/29/19 for CAP, Acute/chronic resp failure w/ hypoxia. See CM assessment completed by Collin DAWN CM on 05/26/19. Pt does have oxygen set up thru [facility] with concentrator and portability but wears PRN at home. Therapy was recommending HHC at discharge but pt declined HHC/OP therapy at that time. During f/u phone call, pt's stated pt was 'doing well and not having any issues.' Pt then returned on 06/13/[facility] to [facility] for increased SOB/audible crackles. Pt admitted for Pneumonia/resp failure. Pt currently on 3 liters at this time. Call to [facility] and pt does have concentrator/portability(etanks/small tanks delivered on 06/12/19) but is trying to get a portable concentrator but per Erinn at [facility], pt has to have appt set up to come in to [facility] and be evaluated by their resp therapist. Pt is updated on this at this time as pt thought this was something we 'could take care of while he's here.' CM to follow for any further discharge planning/needs. Estella DAWN CM
[2019-06-14] MEDS: Furosemide 40 MG/4 ML Vial IV (15:19)
[2019-06-14 16:40] LABS: Bedside Glucose 217 mg/dL (70-110)
[2019-06-14] MEDS: Atorvastatin Calcium 10 MG Tablet PO (21:05)
[2019-06-14 21:50] LABS: Bedside Glucose 220 mg/dL (70-110)
--- NOTE | 2019-06-14 22:59 | NURSING ---
RN CALLED TO ROOM, PATIENT FEELING SOB, JUST GOT UP TO USE URINAL. STATES BIPAP IS MAKING HIM FEEL CLAUSTROPHOBIC. RN CALLED FOR BREATHING TREATMENT AT THIS TIME, RR IS UP. 02 92% ON 3LNC
--- NOTE | 2019-06-14 23:45 | NURSING ---
PATIENT REFUSING TO WEAR BIPAP AT THIS TIME, STATES BREATHING IS DOING BETTER AT THIS TIME.
[2019-06-15] VITALS (18 sets, daily range): BP systolic 101–122; BP diastolic 60–76; PULSE 24–90; RESP 12–30; TEMP 36.4–36.7; O2SAT 93–98
[2019-06-15] MEDS: Ipratropium/Albuterol Sulfate 3 ML AMPUL.NEB INHALATION ×6 (00:23→23:09)
--- NOTE | 2019-06-15 00:25 | CPS ---
patient still refusing pap therapy at this time. patient informed of benefits but denies wanting pap therapy. rn aware
--- NOTE | 2019-06-15 01:30 | NURSING ---
RN CALLED INTO ROOM FOR PATIENT TO USE BATHROOM, PATIENT GETS VERY SOB WITH EXCERTION. LABORED BREATHING WHEN UP TO COMMODE. ONCE BACK TO BED WAS ABLE TO GET PATIENT TO WEAR BIPAP AND BREATHING BECAME MUCH BETTER. 02 96% ON BIPAP PATIENT STATES HE WILL WEAR IT UNTIL MORNING. WILL CONTINUE TO MONITOR.
[2019-06-15 05:43] LABS: Hematocrit 37.1 % (40-54); Hemoglobin 11.7 g/dL (13.0-16.5); Mean Corp Hgb Conc 31.5 g/dL (32-36); Mean Corpuscular Hgb 31.3 pg (27.0-32.0); Mean Corpuscular Volume 99.2 fL (80-94); Mean Platelet Vol. 9.9 fl (6.2-12.0); POSITIVE COUNT YES; Platelet Count 89 K/mm3 (150-450); RBC Distribution Width CV 15.1 % (11.6-14.6); RBC Distribution Width SD 55.3 fl (35.1-43.9); Red Blood Count 3.74 M/mm3 (4.6-6.2); White Blood Count 11.7 K/mm3 (4.4-11.0)
[2019-06-15] MEDS: 0.9% Saline Lock 10 ML Syringe IV ×2 (05:52→13:16)
[2019-06-15 06:13] LABS: Vancomycin, Trough Level 20.9 ug/mL (5.0-15.0)
--- NOTE | 2019-06-15 06:19 | PCM.RX.CS ---
Consult Pharmacy has been consulted to manage selected antiobiotic: Vancomycin Type of Consult: Follow-up Suspected Infection: Pneumonia Prior Doses of Antibiotics Received/Current Regimen: Medications Vancomycin HCl 1,500 mg/ (Sodium Chloride) 530 mls @ 250 mls/hr IV Q12H [facility] Last Admin: 06/15/19 05:52 Dose: 250 mls/hr Labs: Vancomycin Trough 20.9 ug/mL (5.0-15.0) H 06/15/19 05:30 Microbiology: Microbiology 06/14/19 07:12 Sputum, Expectorated/Coughed Gram Stain - Final 06/13/19 23:40 Mucosa - Nasopharyngeal Respiratory Panel (PCR) - Final Weight used for dosin.8 kg Estimated Creatinine Clearance: 75 Goal Trough: 15-20 mcg/mL Pharmacy Plan for Drug Dosing: Trough level of 20.9 was just above target range of 15-20. Will continue same dosing and re-draw trough 06/17/19. Pharmacy Service will continue to monitor and adjust dosing as required. Follow-Up Labs: Trough Vancomycin Labs to be done on [date and time ordered]: 06/17/19 @[id number]
[2019-06-15] MEDS: Insulin Lispro 100 UNIT/ML INSULN.PEN SC ×4 (06:32→21:13)
[2019-06-15 06:47] LABS: Anion Gap 4 (5-15); BUN 31 mg/dL (7-18); BUN/Creat Ratio 20.7 RATIO (10-20); Calcium,Total 8.2 mg/dL (8.5-10.1); Chloride 105 mmol/L (98-107); EST Glomerular Filtration Rate 49 mL/min (>60); Est Glom Filt Rate - Afr Amer 59 mL/min (>60); Estimated Creatinine Clearance 44.51 ml/min; Glucose 189 mg/dL (74-106); Potassium 4.7 mmol/L (3.5-5.1); Sodium Level 142 mmol/L (136-145)
[2019-06-15 08:26] LABS: Bedside Glucose 179 mg/dL (70-110)
[2019-06-15] MEDS: Amiodarone 200 MG Tablet 100 MG PO (08:28)
[2019-06-15] MEDS: Multivitamins,Ther W-Minerals Tablet 1 TABLET PO (08:28)
[2019-06-15] MEDS: Metoprolol Tartrate 50 MG Tablet PO (08:28)
--- NOTE | 2019-06-15 09:35 | PCM.PN.PUL ---
Subjective: Patient states that he tolerated the vest therapy well. Patient is unclear if this is leading to significant improvement in overall condition. Patient does state that sitting in the chair appears to help his breathing. Patient denies any bleeding complications. Lower extremity swelling is unchanged. Patient is on BiPAP at night at baseline and was compliant overnight. Objective: Review of previous thoracentesis shows rare atypical cells in an exudative pattern. - Physical Exam Vitals/I&O's: Vital Signs Temp Pulse Resp BP Pulse Ox 36.6 C 89 16 101/60 94 06/15/19 09:16 06/15/19 09:16 06/15/19 09:16 06/15/19 09:16 06/15/19 09:16 Oxygen Flow Rate (L/min) 3 Oxygen Delivery Method Nasal Cannula Weight: 102.8 kg Body Mass Index (BMI) 32.5 Intake and Output for Last 24 Hours 06/13/19 06/14/19 06/15/19 23:59 23:59 23:59 Intake Total 630 / 630 2879.00 / 2879.00 792.75 / 792.75 Output Total 1850 / 1850 500 / 500 Balance 630 / 530 1029.00 / 1029.00 292.75 / 292.75 General: Alert, Oriented x3, Cooperative, No apparent distress, Well developed, Well nourished HEENT: Atraumatic, PERRLA, EOMI, Normocephalic, - - No scleral icterus or injection noted Oral: Moist Mucosa, No Gingival or Mucosal Lesions/ Ulcerations Neck: Supple, No Nodes, Trachea Midline, JVD, Right Lungs: No rhonchi, No wheeze, No rales, Diminished - Right greater than left, - - Symmetric expansion. Some dullness to percussion appreciated Cardiovascular: Regular rate, Regular Rhythm, Normal S1, Normal S2, No murmurs, No rub noted, No Gallop Abdomen: Bowel Sounds Present, Soft, Non Tender, Non-Distended, Obese Extremities: No cyanosis, Capillary Refill Less than 3 Seconds, Edema Skin: No rashes, No breakdown Musculoskeletal: No Tenderness to Palpation of Joints or Extremities Lymphatic: No Cervical, Supraclavicular, or Inguinal Adenopathy Neurological: Cranial nerves II-XII grossly intact, Neuro grossly intact, Motor Exam 5/5 strength throughout Psych/Mental Status: Alert and oriented to time, place, person, mood and affect Microbiology Past 72 Hours 06/14/19 07:12 Sputum, Expectorated/Coughed Gram Stain - Final 06/13/19 23:40 Mucosa - Nasopharyngeal Respiratory Panel (PCR) - Final Laboratory Results 06/14/19 11:03: POC Glucose 175 H 06/14/19 16:34: POC Glucose 217 H 06/14/19 21:02: POC Glucose 220 H 06/15/19 05:30: Vancomycin Trough 20.9 H 06/15/19 05:30: WBC 11.7 H, RBC 3.74 L, Hgb 11.7 L, Hct 37.1 L, MCV 99.2 H, MCH 31.3, MCHC 31.5 L, RDW Std Deviation 55.3 H, RDW Coeff of Jamie 15.1 H, Plt Count 89 L, MPV 9.9 06/15/19 05:30: Sodium 142, Potassium 4.7, Chloride 105, Carbon Dioxide 33.0 H, Anion Gap 4 L, BUN 31 H, Creatinine 1.50 H, Estim Creat Clear Calc 44.51, Est GFR (MDRD) Af Amer 59 L, Est GFR (MDRD) Non-Af 49 L, BUN/Creatinine Ratio 20.7 H, Glucose 189 H, Calcium 8.2 L 06/15/19 06:30: POC Glucose 179 H Current Medications Acetaminophen (Tylenol) 650 mg PO Q6H PRN PRN PRN Reason: Pain Score 1-3/Temp > 100.7 F Albuterol/Ipratropium (Duoneb) 3 ml INHALATION Q4HWA.RT [facility] Last Admin: 06/15/19 07:37 Dose: 3 ml Documented by: Amiodarone HCl (Cordarone) 100 mg PO DAILY [facility] Last Admin: 06/15/19 08:28 Dose: 100 mg Documented by: Atorvastatin Calcium (Lipitor) 10 mg PO QHS [facility] Last Admin: 06/14/19 21:05 Dose: 10 mg Documented by: Furosemide (Lasix) 40 mg IV BID@1000,1800 [facility] Last Admin: 06/14/19 15:33 Dose: Not Given Documented by: Glucagon () 1 mg IM .X1 PRN PRN Reason: Hypoglycemia Vancomycin IV Pharmacy to Dose (1 ea/ Sodium Chloride) 500 mls @ 250 mls/hr IV X1 PRN; Protocol PRN Reason: Rx to Dose Piperacillin Sod/Tazobactam (Sod 3.375 gm/ Sodium Chloride) 50 mls @ 12.5 mls/hr IV Q8 [facility] Last Admin: 06/15/19 09:06 Dose: 12.5 mls/hr Documented by: Sodium Chloride () 250 mls @ 15 mls/hr IV .[id number] PRN PRN Reason: Saline Flush Last Infusion: 06/15/19 06:01 Dose: 0 mls/hr Documented by: Vancomycin HCl 1,500 mg/ (Sodium Chloride) 530 mls @ 250 mls/hr IV Q12H [facility] Last Infusion: 06/15/19 09:09 Dose: Infused Documented by: Dextrose (Dextrose 10%-Water) 250 mls @ 999 mls/hr IV X1 PRN; Protocol PRN Reason: HYPOGLYCEMIA Insulin Human Lispro (Humalog Kwikpen (Bkc)) 0 unit SC ACHS [facility]; Protocol Last Admin: 06/15/19 06:32 Dose: 1 units Documented by: Methylprednisolone (Solu-Medrol) 40 mg IV Q8 [facility] Last Admin: 06/15/19 05:52 Dose: 40 mg Documented by: Metoprolol Tartrate (Lopressor (Beta Sukhwnider)) 50 mg PO BID [facility] Last Admin: 06/15/19 08:28 Dose: 50 mg Documented by: Multivitamins/Minerals (Multivitamin With Minerals) 1 tablet PO DAILY@0800 [facility] Last Admin: 06/15/19 08:28 Dose: 1 tablet Documented by: Nitroglycerin (Nitrostat) 0.4 mg SUBLINGUAL Q5M PRN PRN Reason: CARDIAC/CHEST PAIN Ondansetron HCl (Zofran) 4 mg IV Q8H PRN PRN PRN Reason: NAUSEA/VOMITING Sodium Chloride () 10 - 40 ml IV UD PRN PRN Reason: SALINE FLUSH Last Admin: 06/15/19 05:52 Dose: 10 ml Documented by: Medical Necessity - Tobacco Use Smoking Status: Former smoker Assessment/Plan All Active Problems (Last Reviewed 06/13/19 @ 15:18 by Janessa Guajardo NP-C) Community-acquired pneumonia (Acute) Acute and chronic respiratory failure with hypoxia (Acute) Bradycardia (Resolved) Chest pain (Resolved) RECOMMENDATIONS: 1. Consider oncology evaluation with possible surgery consultation for Pleurx catheter 2. Continue to wean supplemental oxygen as tolerated. 3. Holding aspirin and Plavix 4. Initiate vest therapy for pulmonary toileting 5. Follow-up in our office in 2 weeks IMPRESSIONS: 1. Acute hypoxemic respiratory failure Unclear etiology at this point. Patient may have an element of postobstructive pneumonia versus malignant pleural effusion. Given the rapidity of reaccumulation and the atypical cells previously, this appears to be a malignant pleural effusion. This would change patient's staging to 4 from 3. Consider oncology evaluation. Given rapid reaccumulation, placement of a Pleurx catheter by surgery would be appropriate. Patient would also potentially need discussions about palliation or new prognosis given this advancing and of stage. Patient does see Dr. Ayon at baseline. 2. 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 Ayon. Patient appears to have progression of lung cancer. 3. History of coronary artery disease/paroxysmal atrial fibrillation/hyperlipidemia The patient's home aspirin and Plavix are going to be held, should thoracentesis need to be performed. 4. CODE status: Informed full CODE STATUS Code Visit Inpatient E&M: 63905 Subs Hosp L2
[2019-06-15 11:21] LABS: Bedside Glucose 158 mg/dL (70-110)
--- NOTE | 2019-06-15 14:09 | CASEMGMT ---
Per Negro at [facility] [place], pt's order is for 2 liters continous at this time and pt does not have a bipap at home at this time. SStwali DAWN CM
--- NOTE | 2019-06-15 15:47 | PN_ITS ---
Reason for Visit: pneumonia Subjective: Episode this morning when he is on the BiPAP became very short of breath. Was coughing and then felt much better afterwards. Feeling much better overall. Vitals/I&O's: Vital Signs Temp Pulse Resp BP Pulse Ox 36.7 C 88 18 111/70 93 06/15/19 15:15 06/15/19 15:15 06/15/19 15:15 06/15/19 15:15 06/15/19 15:15 Oxygen Flow Rate (L/min) 3 Oxygen Delivery Method Nasal Cannula Weight: 102.8 kg Body Mass Index (BMI) 32.5 Intake and Output for Last 24 Hours 06/13/19 06/14/19 06/15/19 23:59 23:59 23:59 Intake Total 630 / 630 2879.00 / 2879.00 942.75 / 942.75 Output Total 1850 / 1850 650 / 650 Balance 630 / 530 1029.00 / 1029.00 292.75 / 292.75 General: Alert, Cooperative, No apparent distress HEENT: Atraumatic, Normocephalic Oral: Moist Mucosa, No Gingival or Mucosal Lesions/ Ulcerations Neck: No Nodes, Trachea Midline Lungs: Clear to auscultation, Normal air movement, Diminished - right base, - - DTP in right base Cardiovascular: Regular rate, Regular Rhythm, Normal S1, Normal S2, No murmurs Abdomen: Bowel Sounds Present, Soft, Non Tender, Non-Distended, No Hepato- splenomegaly Extremities: No Calf Tenderness, Edema Skin: No rashes, No breakdown Musculoskeletal: No Tenderness to Palpation of Joints or Extremities, No Muscle Wasting Psych/Mental Status: Normal Affect, Appropriate Microbiology Past 72 Hours 06/14/19 07:12 Sputum, Expectorated/Coughed Gram Stain - Final 06/14/19 07:12 Sputum, Expectorated/Coughed Respiratory Culture - Preliminary Appears to be normal respiratory brandon. Further studies to follow. 06/13/19 23:40 Mucosa - Nasopharyngeal Respiratory Panel (PCR) - Final Laboratory Results 06/14/19 16:34: POC Glucose 217 H 06/14/19 21:02: POC Glucose 220 H 06/15/19 05:30: Vancomycin Trough 20.9 H 06/15/19 05:30: WBC 11.7 H, RBC 3.74 L, Hgb 11.7 L, Hct 37.1 L, MCV 99.2 H, MCH 31.3, MCHC 31.5 L, RDW Std Deviation 55.3 H, RDW Coeff of Jamie 15.1 H, Plt Count 89 L, MPV 9.9 06/15/19 05:30: Sodium 142, Potassium 4.7, Chloride 105, Carbon Dioxide 33.0 H, Anion Gap 4 L, BUN 31 H, Creatinine 1.50 H, Estim Creat Clear Calc 44.51, Est GFR (MDRD) Af Amer 59 L, Est GFR (MDRD) Non-Af 49 L, BUN/Creatinine Ratio 20.7 H , Glucose 189 H, Calcium 8.2 L 06/15/19 06:30: POC Glucose 179 H 06/15/19 11:13: POC Glucose 158 H Current Medications Acetaminophen (Tylenol) 650 mg PO Q6H PRN PRN PRN Reason: Pain Score 1-3/Temp > 100.7 F Albuterol/Ipratropium (Duoneb) 3 ml INHALATION Q4HWA.RT [facility] Last Admin: 06/15/19 15:09 Dose: 3 ml Documented by: Amiodarone HCl (Cordarone) 100 mg PO DAILY [facility] Last Admin: 06/15/19 08:28 Dose: 100 mg Documented by: Atorvastatin Calcium (Lipitor) 10 mg PO QHS [facility] Last Admin: 06/14/19 21:05 Dose: 10 mg Documented by: Glucagon () 1 mg IM .X1 PRN PRN Reason: Hypoglycemia Vancomycin IV Pharmacy to Dose (1 ea/ Sodium Chloride) 500 mls @ 250 mls/hr IV X1 PRN; Protocol PRN Reason: Rx to Dose Piperacillin Sod/Tazobactam (Sod 3.375 gm/ Sodium Chloride) 50 mls @ 12.5 mls/ hr IV Q8 [facility] Last Admin: 06/15/19 13:17 Dose: 12.5 mls/hr Documented by: Sodium Chloride () 250 mls @ 15 mls/hr IV .[id number] PRN PRN Reason: Saline Flush Last Infusion: 06/15/19 06:01 Dose: 0 mls/hr Documented by: Vancomycin HCl 1,500 mg/ (Sodium Chloride) 530 mls @ 250 mls/hr IV Q12H [facility] Last Infusion: 06/15/19 09:09 Dose: Infused Documented by: Dextrose (Dextrose 10%-Water) 250 mls @ 999 mls/hr IV X1 PRN; Protocol PRN Reason: HYPOGLYCEMIA Insulin Human Lispro (Humalog Kwikpen (Bkc)) 0 unit SC ACHS [facility]; Protocol Last Admin: 06/15/19 11:14 Dose: 1 units Documented by: Methylprednisolone (Solu-Medrol) 40 mg IV Q8 [facility] Last Admin: 06/15/19 13:16 Dose: 40 mg Documented by: Metoprolol Tartrate (Lopressor (Beta Sukhwinder)) 50 mg PO BID [facility] Last Admin: 06/15/19 08:28 Dose: 50 mg Documented by: Multivitamins/Minerals (Multivitamin With Minerals) 1 tablet PO DAILY@0800 [facility] Last Admin: 06/15/19 08:28 Dose: 1 tablet Documented by: Nitroglycerin (Nitrostat) 0.4 mg SUBLINGUAL Q5M PRN PRN Reason: CARDIAC/CHEST PAIN Ondansetron HCl (Zofran) 4 mg IV Q8H PRN PRN PRN Reason: NAUSEA/VOMITING Sodium Chloride () 10 - 40 ml IV UD PRN PRN Reason: SALINE FLUSH Last Admin: 06/15/19 13:16 Dose: 20 ml Documented by: STROKE Vital Signs/Narrative: Vital Signs Temp Pulse Resp BP Pulse Ox 06/15/19 15:15 36.7 C 88 18 111/70 93 06/15/19 15:00 84 Medical Necessity - Tobacco Use Smoking Status: Former smoker Assessment/Plan All Active Problems (Last Reviewed 06/13/19 @ 15:18 by Janessa Guajardo NP-C) Community-acquired pneumonia (Acute) Acute and chronic respiratory failure with hypoxia (Acute) Bradycardia (Resolved) Chest pain (Resolved) 1. Pleural effusion * Previously was significant for transudate of effusion. Patient stated that it is worse when he lies flat. Though did have some atypical cells in it, given his known malignancy, certainly could be a malignant effusion. Plan is to diurese to see if removing some fluid with diuresis can help. If not then patient may require another thoracentesis and possible Pleurx catheter * Diuresis stopped due to worsening renal function 2. Acute on chronic respiratory insufficiency: * likely multifactorial * Continue with antibiotics and pulm toilet. * Vest therapy has been ordered. 3. Systemic inflammatory response syndrome: * Present on arrival. Being treated empirically for sepsis though it is not really convincing for my and that the patient has a pneumonia but met 2 of 4 Sirs criteria which could be related with his respiratory issues and not per se related with underlying infectious process. 4. History of non-small cell as well as small cell lung cancer. Per oncology. 5. Edema: Family very concerned about the swelling in his feet which he generally does so at this time and is improved from their description. Explained to them that there is truly a component of third spacing given his malnutrition and underlying malignancy but we do have to exercise caution in regards to diuresis so that we do not over diuresing causing renal injury. 6. CAD * stable * ASA and plavix held for thoracentesis 7. VTE proph: enoxaparin Code Visit Inpatient E&M: 03847 Subs Hosp L2
[2019-06-15 16:35] LABS: Bedside Glucose 209 mg/dL (70-110)
[2019-06-15] MEDS: Atorvastatin Calcium 10 MG Tablet PO (21:12)
[2019-06-15 22:51] LABS: Bedside Glucose 212 mg/dL (70-110)
[2019-06-16] VITALS (24 sets, daily range): BP systolic 115–130; BP diastolic 74–83; PULSE 77–118; RESP 12–26; TEMP 36.1–36.6; O2SAT 92–95
[2019-06-16] MEDS: 0.9% Saline Lock 10 ML Syringe IV (05:11)
[2019-06-16] MEDS: Enoxaparin 40 MG/0.4 ML Syringe SC (05:18)
[2019-06-16 05:29] LABS: Absolute Lymphocyte Count 0.24 X10^3/uL (0.83-4.51); Hematocrit 36.1 % (40-54); Hemoglobin 11.3 g/dL (13.0-16.5); Lymphocyte # 0.24 X10^3/ul (4.0); Lymphocyte % 2.8 % (19-41); Mean Corp Hgb Conc 31.3 g/dL (32-36); Mean Corpuscular Hgb 31.2 pg (27.0-32.0); Mean Corpuscular Volume 99.7 fL (80-94); Mean Platelet Vol. 10.5 fl (6.2-12.0); Monocyte# 0.22 X10^3/uL; Monocyte% 2.6 % (0-10); NRBC Flagged by Analyzer 0 % (0-5); Neutrophil # 8.03 X10^3/uL (2.7-7.7); Neutrophil % 93.2 % (47-70); POSITIVE COUNT YES; POSITIVE DIFFERENTIAL YES; Platelet Count 88 K/mm3 (150-450); RBC Distribution Width CV 15.2 % (11.6-14.6); RBC Distribution Width SD 56.2 fl (35.1-43.9); Red Blood Count 3.62 M/mm3 (4.6-6.2); White Blood Count 8.6 K/mm3 (4.4-11.0)
[2019-06-16 05:30] LABS: Differential Indicated SCAN CRITERIA MET
[2019-06-16 05:52] LABS: Anion Gap 5 (5-15); BUN 28 mg/dL (7-18); BUN/Creat Ratio 22.2 RATIO (10-20); Calcium,Total 7.8 mg/dL (8.5-10.1); Chloride 109 mmol/L (98-107); Creatinine, Serum 1.26 mg/dL (0.70-1.30); EST Glomerular Filtration Rate 60 mL/min (>60); Est Glom Filt Rate - Afr Amer 72 mL/min (>60); Estimated Creatinine Clearance 52.99 ml/min; Glucose 188 mg/dL (74-106); Potassium 4.1 mmol/L (3.5-5.1); Sodium Level 144 mmol/L (136-145)
[2019-06-16] MEDS: Insulin Lispro 100 UNIT/ML INSULN.PEN SC ×4 (06:34→21:36)
[2019-06-16 06:40] LABS: Differential Comment SCANNED
[2019-06-16 06:40] LABS: Bedside Glucose 178 mg/dL (70-110)
[2019-06-16] MEDS: Ipratropium/Albuterol Sulfate 3 ML AMPUL.NEB INHALATION ×5 (07:06→22:39)
[2019-06-16] MEDS: Acetaminophen 325 MG Tablet 650 MG PO (07:25)
[2019-06-16] MEDS: Metoprolol Tartrate 50 MG Tablet PO ×2 (08:51→21:36)
[2019-06-16] MEDS: Amiodarone 200 MG Tablet 100 MG PO (08:51)
[2019-06-16] MEDS: Multivitamins,Ther W-Minerals Tablet 1 TABLET PO (08:51)
--- NOTE | 2019-06-16 11:17 | PCM.PN.PUL ---
Subjective: Patient did okay overnight. Patient has remained on his baseline nasal cannula oxygen and noninvasive therapy with sleep. Patient denied any chest pain during my evaluation. - Physical Exam Vitals/I&O's: Vital Signs Temp Pulse Resp BP Pulse Ox 36.6 C 83 18 115/75 94 06/16/19 10:35 06/16/19 11:16 06/16/19 11:16 06/16/19 10:35 06/16/19 10:35 Oxygen Flow Rate (L/min) 3 Oxygen Delivery Method Nasal Cannula Weight: 103.8 kg Body Mass Index (BMI) 32.5 Intake and Output for Last 24 Hours 06/14/19 06/15/19 06/16/19 23:59 23:59 23:59 Intake Total 2879.00 / 2879.00 1971.75 / 1971.75 277.25 / 277.25 Output Total 1850 / 1850 1050 / 1050 400 / 400 Balance 1029.00 / 1029.00 921.75 / 921.75 -122.75 / -122.75 General: Alert, Oriented x3, Cooperative, - - Mild conversational dyspnea. Obese. HEENT: Atraumatic, PERRLA, EOMI, Normocephalic, - - No scleral icterus or injection noted Oral: Moist Mucosa, No Gingival or Mucosal Lesions/ Ulcerations Neck: Supple, No Nodes, Trachea Midline, JVD, Right Lungs: No rhonchi, No wheeze, Diminished - Dullness to percussion noted Cardiovascular: Regular rate, Regular Rhythm, Normal S1, Normal S2, No murmurs, No rub noted, No Gallop Abdomen: Bowel Sounds Present, Soft, Non Tender, Non-Distended, Obese Extremities: No clubbing, No cyanosis, Edema Skin: No rashes, No breakdown Musculoskeletal: No Tenderness to Palpation of Joints or Extremities Lymphatic: No Cervical, Supraclavicular, or Inguinal Adenopathy Neurological: Cranial nerves II-XII grossly intact, Neuro grossly intact, Motor Exam 5/5 strength throughout Psych/Mental Status: Alert and oriented to time, place, person, mood and affect Microbiology Past 72 Hours 06/13/19 16:50 Blood Culture (Wb) - Central Line Blood Culture - Preliminary No growth in 48 hours. 06/13/19 17:41 Blood Culture (Wb) #2 - Right Forearm Blood Culture - Preliminary No growth in 48 hours. 06/14/19 07:12 Sputum, Expectorated/Coughed Gram Stain - Final 06/14/19 07:12 Sputum, Expectorated/Coughed Respiratory Culture - Final 06/13/19 23:40 Mucosa - Nasopharyngeal Respiratory Panel (PCR) - Final Laboratory Results 06/15/19 05:30: Creatinine 1.50 H 06/15/19 11:13: POC Glucose 158 H 06/15/19 16:25: POC Glucose 209 H 06/15/19 21:09: POC Glucose 212 H 06/16/19 05:10: WBC 8.6, RBC 3.62 L, Hgb 11.3 L, Hct 36.1 L, MCV 99.7 H, MCH 31.2, MCHC 31.3 L, RDW Std Deviation 56.2 H, RDW Coeff of Jamie 15.2 H, Plt Count 88 L, MPV 10.5, Immature Gran % (Auto) 1.400 H, Neut % (Auto) 93.2 H, Lymph % (Auto) 2.8 L, Cavalier % (Auto) 2.6, Eos % (Auto) 0.0, Baso % (Auto) 0.0, Absolute Neuts (auto) 8.0 H, Absolute Lymphs (auto) 0.24 L, Nucleated RBC % 0, Differential Comment SCANNED 06/16/19 05:10: Sodium 144, Potassium 4.1, Chloride 109 H, Carbon Dioxide 30.0, Anion Gap 5, BUN 28 H, Creatinine 1.26, Estim Creat Clear Calc 52.99, Est GFR (MDRD) Af Amer 72, Est GFR (MDRD) Non-Af 60, BUN/Creatinine Ratio 22.2 H, Glucose 188 H, Calcium 7.8 L 06/16/19 06:33: POC Glucose 178 H Current Medications Acetaminophen (Tylenol) 650 mg PO Q6H PRN PRN PRN Reason: Pain Score 1-3/Temp > 100.7 F Last Admin: 06/16/19 07:25 Dose: 650 mg Documented by: Albuterol/Ipratropium (Duoneb) 3 ml INHALATION Q4HWA.RT [facility] Last Admin: 06/16/19 11:12 Dose: 3 ml Documented by: Amiodarone HCl (Cordarone) 100 mg PO DAILY [facility] Last Admin: 06/16/19 08:51 Dose: 100 mg Documented by: Atorvastatin Calcium (Lipitor) 10 mg PO QHS [facility] Last Admin: 06/15/19 21:12 Dose: 10 mg Documented by: Enoxaparin Sodium (Lovenox) 40 mg SC DAILY@0600 [facility] Last Admin: 06/16/19 05:18 Dose: 40 mg Documented by: Glucagon () 1 mg IM .X1 PRN PRN Reason: Hypoglycemia Vancomycin IV Pharmacy to Dose (1 ea/ Sodium Chloride) 500 mls @ 250 mls/hr IV X1 PRN; Protocol PRN Reason: Rx to Dose Piperacillin Sod/Tazobactam (Sod 3.375 gm/ Sodium Chloride) 50 mls @ 12.5 mls/hr IV Q8 [facility] Last Infusion: 06/16/19 09:12 Dose: Infused Documented by: Sodium Chloride () 250 mls @ 15 mls/hr IV .[id number] PRN PRN Reason: Saline Flush Last Infusion: 06/16/19 05:19 Dose: 0 mls/hr Documented by: Vancomycin HCl 1,500 mg/ (Sodium Chloride) 530 mls @ 250 mls/hr IV Q12H [facility] Last Admin: 06/16/19 09:31 Dose: 250 mls/hr Documented by: Dextrose (Dextrose 10%-Water) 250 mls @ 999 mls/hr IV X1 PRN; Protocol PRN Reason: HYPOGLYCEMIA Insulin Human Lispro (Humalog Kwikpen (Bkc)) 0 unit SC ACHS [facility]; Protocol Last Admin: 06/16/19 06:34 Dose: 1 units Documented by: Methylprednisolone (Solu-Medrol) 40 mg IV Q8 [facility] Last Admin: 06/16/19 05:15 Dose: 40 mg Documented by: Metoprolol Tartrate (Lopressor (Beta Sukhwinder)) 50 mg PO BID [facility] Last Admin: 06/16/19 08:51 Dose: 50 mg Documented by: Multivitamins/Minerals (Multivitamin With Minerals) 1 tablet PO DAILY@0800 [facility] Last Admin: 06/16/19 08:51 Dose: 1 tablet Documented by: Nitroglycerin (Nitrostat) 0.4 mg SUBLINGUAL Q5M PRN PRN Reason: CARDIAC/CHEST PAIN Ondansetron HCl (Zofran) 4 mg IV Q8H PRN PRN PRN Reason: NAUSEA/VOMITING Sodium Chloride () 10 - 40 ml IV UD PRN PRN Reason: SALINE FLUSH Last Admin: 06/16/19 05:11 Dose: 20 ml Documented by: Medical Necessity - Tobacco Use Smoking Status: Former smoker Assessment/Plan All Active Problems (Last Reviewed 06/13/19 @ 15:18 by Janessa Guajardo, VIOLETTE-C) Community-acquired pneumonia (Acute) Acute and chronic respiratory failure with hypoxia (Acute) Bradycardia (Resolved) Chest pain (Resolved) RECOMMENDATIONS: 1. Consider oncology evaluation with possible surgery consultation for Pleurx catheter 2. Continue to wean supplemental oxygen as tolerated. 3. Holding aspirin and Plavix 4. Continue vest therapy for pulmonary toileting 5. Follow-up in our office in 2 weeks 6. Possibly transition to p.o. antibiotic therapy IMPRESSIONS: 1. Acute hypoxemic respiratory failure Unclear etiology at this point. Patient may have an element of postobstructive pneumonia versus malignant pleural effusion. Given the rapidity of reaccumulation and the atypical cells previously, this appears to be a malignant pleural effusion. This would change patient's staging to 4 from 3. Consider oncology evaluation. Given rapid reaccumulation, placement of a Pleurx catheter by surgery would be appropriate. Discussed with Dr. Martínez and he could potentially place this on Wednesday if requested for aggressive therapy. 2. 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 Ayon. Patient appears to have progression of lung cancer. 3. History of coronary artery disease/paroxysmal atrial fibrillation/hyperlipidemia The patient's home aspirin and Plavix are going to be held, should thoracentesis need to be performed. 4. CODE status: Informed full CODE STATUS Code Visit Inpatient E&M: 51196 Subs Hosp L2
[2019-06-16 12:16] LABS: Bedside Glucose 161 mg/dL (70-110)
--- NOTE | 2019-06-16 12:43 | PCM.CONS.GEN ---
Problem List (1) Primary small cell malignant neoplasm of lung, stage 3 Status: Chronic Reason for Consult Date of Consultation: 06/16/19 History of Present Illness: The patient is a 73 year old M here for pneumonia. The patient has small cell and non-small cell carcinoma of the lung. He is having recurrent effusions on the right side. I was consulted for Pleurx catheter placement. Past Medical History Past Medical History (Chronic Problems): Chronic Problems (Last Reviewed 06/13/19 @ 15:18 by CLARISSA Pedroza) PND (post-nasal drip) (Chronic) GERD (gastroesophageal reflux disease) (Chronic) History of DVT (deep vein thrombosis) (Chronic) H/O percutaneous transluminal coronary angioplasty (Chronic) PTCA/stent of the mid LAD, prox 1st diag, prox RCA 08/13/10; PTCA/BETO of the Ostial/Prox 1st diag 12/15/16 Hx of appendectomy (Chronic) Thrombocytopenia (Chronic) Anemia (Chronic) Pancytopenia (Chronic) Right upper lobe pulmonary nodule (Chronic) Non-small cell carcinoma of left lung, stage 3 (Chronic) Paroxysmal atrial fibrillation (Chronic) Atherosclerotic heart disease of [place] coronary artery without angina pectoris (Chronic) PTCA/stent of the mid LAD, prox 1st diag, prox RCA 08/13/10; PTCA/BETO of the Ostial/Prox 1st diag 12/15/16 Long-term use of high-risk medication (Chronic) Primary small cell malignant neoplasm of lung, stage 3 (Chronic) Nocturnal hypoxia (Chronic) Radiation esophagitis (Chronic) HLD (hyperlipidemia) (Chronic) Small cell lung cancer (Chronic) History of coronary artery stent placement (Chronic) PTCA/stent of the mid LAD, prox 1st diag, prox RCA 08/13/10; PTCA/BETO of the Ostial/Prox 1st diag 12/15/16 Obesity (BMI 30-39.9) (Chronic) Smoking addiction (Chronic) COPD (chronic obstructive pulmonary disease) (Chronic) HTN (hypertension) (Chronic) Medical History: Medical History (Last Reviewed 06/13/19 @ 15:18 by Janessa Guajardo NP-C) PND (post-nasal drip) (Chronic) R09.82 GERD (gastroesophageal reflux disease) (Chronic) K21.9 History of DVT (deep vein thrombosis) (Chronic) Z86.718 Paroxysmal atrial fibrillation (Chronic) I48.0 Atherosclerotic heart disease of [place] coronary artery without angina pectoris (Chronic) I25.10 PTCA/stent of the mid LAD, prox 1st diag, prox RCA 08/13/10; PTCA/BETO of the Ostial/Prox 1st diag 12/15/16 Long-term use of high-risk medication (Chronic) Z79.899 Primary small cell malignant neoplasm of lung, stage 3 (Chronic) C34.90 Nocturnal hypoxia (Chronic) G47.34 Radiation esophagitis (Chronic) K20.8 HLD (hyperlipidemia) (Chronic) E78.5 Small cell lung cancer (Chronic) C34.90 Obesity (BMI 30-39.9) (Chronic) E66.9 Smoking addiction (Chronic) F17.200 COPD (chronic obstructive pulmonary disease) (Chronic) J44.9 HTN (hypertension) (Chronic) I10 Bradycardia (Resolved) R00.1 Chest pain (Resolved) R07.9 Acute cystitis (Inactive) N30.00 Adjustment and management of vascular access device (Inactive) Z45.2 Chemotherapy induced nausea and vomiting (Inactive) R11.2, T45.1X5A DVT of upper extremity (deep vein thrombosis) (Inactive) I82.629 Encephalopathy (Inactive) G93.40 Lightheadedness (Inactive) R42 Pancytopenia (Inactive) D61.818 Sepsis (Inactive) A41.9 Allergies No Known Allergies Allergy (Verified 06/13/19 19:52) Home Medications: Ambulatory Orders Medication Instructions Recorded Multivit-Min/FA/Lycopen/Lutein 1 ea PO DAILY 10/14/16 [Centrum Silver Tablet] aspirin 81 mg tablet,delayed 81 mg PO DAILY 12/19/17 release ascorbic acid (vitamin C) 500 mg 500 mg PO DAILY cap 12/20/17 capsule albuterol sulfate HFA 90 1 - 2 puff INHALATION Q4H PRN PRN 02/21/18 mcg/actuation aerosol inhaler #1 device cholecalciferol (vitamin D3) 5,000 5,000 unit PO DAILY 06/21/18 unit capsule clopidogrel 75 mg tablet 75 mg PO DAILY #90 tab 10/04/18 metoprolol tartrate 50 mg tablet 50 mg PO BID #180 tab 03/29/19 nitroglycerin 0.4 mg sublingual 0.4 mg SUBLINGUAL PRN PRN #25 tab 04/07/19 tablet Amiodarone HCl [Cordarone] 100 mg PO DAILY tab 05/29/19 Ipratropium/Albuterol Sulfate 3 ml INHALATION Q6HWA.RT #1 05/29/19 [Duoneb] ampul.neb furosemide 40 mg tablet 40 mg PO DAILY #30 tab 06/12/19 Simvastatin 20 mg PO QHS 06/13/19 Surgical History: Surgical History (Last Reviewed 06/13/19 @ 15:18 by CLARISSA Pedroza) H/O percutaneous transluminal coronary angioplasty (Chronic) Z98.61 PTCA/stent of the mid LAD, prox 1st diag, prox RCA 08/13/10; PTCA/BETO of the Ostial/Prox 1st diag 12/15/16 Hx of appendectomy (Chronic) Z90.49 History of coronary artery stent placement (Chronic) Z95.5 PTCA/stent of the mid LAD, prox 1st diag, prox RCA 08/13/10; PTCA/BETO of the Ostial/Prox 1st diag 12/15/16 Surgical History: appendectomy, - - Cardiac stents. Psychiatric History: No pertinent psych hx Lives: Spouse/ Significant Other Smoking Status: Former smoker Alcohol: None Drugs: None - *Family History Maternal Family History: Family History (Last Reviewed 06/13/19 @ 18:45 by CLARISSA Cardoza) Father Heart disease Mother Cancer Brother Diabetes Son Atrial fibrillation History Items: Cancer - Lung cancer Paternal Family History: Family History (Last Reviewed 06/13/19 @ 18:45 by CLARISSA Cardoza) Father Heart disease Mother Cancer Brother Diabetes Son Atrial fibrillation History Items: Heart Disease Sibling Family History: Family History (Last Reviewed 06/13/19 @ 18:45 by CLARISSA Cardoza) Father Heart disease Mother Cancer Brother Diabetes Son Atrial fibrillation History Items: Diabetes Review of Systems Constitutional: Denies: Anorexia, Fever Cardiovascular: Denies: Chest Pain Respiratory: Reports: Shortness of Breath Gastrointestinal: Denies: Abdominal Pain, Nausea Musculoskeletal: Denies: Joint Tenderness Skin: Denies: Jaundice Neurological: Denies: Balance problems Hematologic/ Lymphatic: Denies: Anemia - Physical Exam Vitals/I&O's: Vital Signs Temp Pulse Resp BP Pulse Ox 97.8 F 83 18 115/75 94 06/16/19 10:35 06/16/19 11:16 06/16/19 11:16 06/16/19 10:35 06/16/19 11:47 Oxygen Flow Rate (L/min) 2 Oxygen Delivery Method Nasal Cannula Weight: 228 lb 13.437 oz Body Mass Index (BMI) 32.5 Intake and Output for Last 24 Hours 06/14/19 06/15/19 06/16/19 23:59 23:59 23:59 Intake Total 2879.00 / 2879.00 1971.75 / 1971.75 1287.25 / 1287.25 Output Total 1850 / 1850 1050 / 1050 625 / 625 Balance 1029.00 / 1029.00 921.75 / 921.75 662.25 / 662.25 General: Alert, Oriented x3 Neck: No JVD Cardiovascular: Regular rate, Regular Rhythm Abdomen: Soft, Non Tender, Non-Distended Microbiology Past 72 Hours 06/13/19 16:50 Blood Culture (Wb) - Central Line Blood Culture - Preliminary No growth in 48 hours. 06/13/19 17:41 Blood Culture (Wb) #2 - Right Forearm Blood Culture - Preliminary No growth in 48 hours. 06/14/19 07:12 Sputum, Expectorated/Coughed Gram Stain - Final 06/14/19 07:12 Sputum, Expectorated/Coughed Respiratory Culture - Final 06/13/19 23:40 Mucosa - Nasopharyngeal Respiratory Panel (PCR) - Final Laboratory Results 06/15/19 05:30: Creatinine 1.50 H 06/15/19 16:25: POC Glucose 209 H 06/15/19 21:09: POC Glucose 212 H 06/16/19 05:10: WBC 8.6, RBC 3.62 L, Hgb 11.3 L, Hct 36.1 L, MCV 99.7 H, MCH 31.2, MCHC 31.3 L, RDW Std Deviation 56.2 H, RDW Coeff of Jamie 15.2 H, Plt Count 88 L, MPV 10.5, Immature Gran % (Auto) 1.400 H, Neut % (Auto) 93.2 H, Lymph % (Auto) 2.8 L, [place] % (Auto) 2.6, Eos % (Auto) 0.0, Baso % (Auto) 0.0, Absolute Neuts (auto) 8.0 H, Absolute Lymphs (auto) 0.24 L, Nucleated RBC % 0, Differential Comment SCANNED 06/16/19 05:10: Sodium 144, Potassium 4.1, Chloride 109 H, Carbon Dioxide 30.0, Anion Gap 5, BUN 28 H, Creatinine 1.26, Estim Creat Clear Calc 52.99, Est GFR (MDRD) Af Amer 72, Est GFR (MDRD) Non-Af 60, BUN/Creatinine Ratio 22.2 H, Glucose 188 H, Calcium 7.8 L 06/16/19 06:33: POC Glucose 178 H 06/16/19 11:57: POC Glucose 161 H Current Medications Acetaminophen (Tylenol) 650 mg PO Q6H PRN PRN PRN Reason: Pain Score 1-3/Temp > 100.7 F Last Admin: 06/16/19 07:25 Dose: 650 mg Documented by: Albuterol/Ipratropium (Duoneb) 3 ml INHALATION Q4HWA.RT [facility] Last Admin: 06/16/19 11:12 Dose: 3 ml Documented by: Amiodarone HCl (Cordarone) 100 mg PO DAILY [facility] Last Admin: 06/16/19 08:51 Dose: 100 mg Documented by: Atorvastatin Calcium (Lipitor) 10 mg PO QHS [facility] Last Admin: 06/15/19 21:12 Dose: 10 mg Documented by: Enoxaparin Sodium (Lovenox) 40 mg SC DAILY@0600 [facility] Last Admin: 06/16/19 05:18 Dose: 40 mg Documented by: Glucagon () 1 mg IM .X1 PRN PRN Reason: Hypoglycemia Vancomycin IV Pharmacy to Dose (1 ea/ Sodium Chloride) 500 mls @ 250 mls/hr IV X1 PRN; Protocol PRN Reason: Rx to Dose Piperacillin Sod/Tazobactam (Sod 3.375 gm/ Sodium Chloride) 50 mls @ 12.5 mls/hr IV Q8 [facility] Last Infusion: 06/16/19 09:12 Dose: Infused Documented by: Sodium Chloride () 250 mls @ 15 mls/hr IV .[id number] PRN PRN Reason: Saline Flush Last Infusion: 06/16/19 11:39 Dose: 15 mls/hr Documented by: Vancomycin HCl 1,500 mg/ (Sodium Chloride) 530 mls @ 250 mls/hr IV Q12H [facility] Last Infusion: 06/16/19 11:39 Dose: Infused Documented by: Dextrose (Dextrose 10%-Water) 250 mls @ 999 mls/hr IV X1 PRN; Protocol PRN Reason: HYPOGLYCEMIA Insulin Human Lispro (Humalog Kwikpen (Bkc)) 0 unit SC ACHS [facility]; Protocol Last Admin: 06/16/19 11:58 Dose: 1 units Documented by: Methylprednisolone (Solu-Medrol) 40 mg IV Q8 [facility] Last Admin: 06/16/19 05:15 Dose: 40 mg Documented by: Metoprolol Tartrate (Lopressor (Beta Sukhwinder)) 50 mg PO BID [facility] Last Admin: 06/16/19 08:51 Dose: 50 mg Documented by: Multivitamins/Minerals (Multivitamin With Minerals) 1 tablet PO DAILY@0800 [facility] Last Admin: 06/16/19 08:51 Dose: 1 tablet Documented by: Nitroglycerin (Nitrostat) 0.4 mg SUBLINGUAL Q5M PRN PRN Reason: CARDIAC/CHEST PAIN Ondansetron HCl (Zofran) 4 mg IV Q8H PRN PRN PRN Reason: NAUSEA/VOMITING Sodium Chloride () 10 - 40 ml IV UD PRN PRN Reason: SALINE FLUSH Last Admin: 06/16/19 05:11 Dose: 20 ml Documented by: Assessment/Plan All Active Problems (Last Reviewed 06/13/19 @ 15:18 by Janessa Guajardo, VIOLETTE-C) Community-acquired pneumonia (Acute) Acute and chronic respiratory failure with hypoxia (Acute) Bradycardia (Resolved) Chest pain (Resolved) 73-year-old male with lung cancer 1. The patient has recurrent right pleural effusion. This is malignant in nature. I was consulted for Pleurx catheter placement. I discussed Pleurx catheter placement with the patient and his . I discussed the risks including but not limited to bleeding, infection, lung injury. The patient understands the risks and is well to proceed. He is on Plavix and aspirin and these been held since Wednesday. I will plan for Pleurx catheter placement on the right side on Wednesday afternoon. Oncology has yet to input on the placement of this with pulmonology and the hospitalist agree with the placement. If oncology decides that they would rather not have a Pleurx catheter placed I would like them to let me know as soon as possible and it will be canceled for Wednesday. At this point I will make the patient n.p.o. after midnight on Wednesday and continue to hold aspirin and Plavix and plan for Pleurx catheter placement Wednesday. Tawanda Anthony MD Pager: [facility] [address] [place] [address], [address] [place] [phone] Office:
--- NOTE | 2019-06-16 13:58 | PCM.PN.HOSP ---
Reason for Visit: pleural effusion Subjective: Breathing better. Vitals/I&O's: Vital Signs Temp Pulse Resp BP Pulse Ox 36.6 C 82 18 115/75 94 06/16/19 10:35 06/16/19 11:59 06/16/19 11:16 06/16/19 10:35 06/16/19 11:47 Oxygen Flow Rate (L/min) 2 Oxygen Delivery Method Nasal Cannula Weight: 103.8 kg Body Mass Index (BMI) 32.5 Intake and Output for Last 24 Hours 06/14/19 06/15/19 06/16/19 23:59 23:59 23:59 Intake Total 2879.00 / 2879.00 1971.75 / 1971.75 1287.25 / 1287.25 Output Total 1850 / 1850 1050 / 1050 625 / 625 Balance 1029.00 / 1029.00 921.75 / 921.75 662.25 / 662.25 General: Alert, No apparent distress HEENT: Atraumatic, Normocephalic Oral: Moist Mucosa, No Gingival or Mucosal Lesions/ Ulcerations Neck: No Nodes, Trachea Midline Lungs: Clear to auscultation, Normal air movement, No rhonchi, No wheeze, - - DTP in right base Cardiovascular: Regular rate, Regular Rhythm, Normal S1, Normal S2, No murmurs Abdomen: Bowel Sounds Present, Soft, Non Tender, Non-Distended, No Hepato-splenomegaly Extremities: No edema, No Calf Tenderness Skin: No rashes, No breakdown Musculoskeletal: No Tenderness to Palpation of Joints or Extremities, No Muscle Wasting Neurological: Cranial nerves II-XII grossly intact, Deep Tendon Reflexes 2+/4 and Symmetrical Psych/Mental Status: Normal Affect, Appropriate Microbiology Past 72 Hours 06/13/19 16:50 Blood Culture (Wb) - Central Line Blood Culture - Preliminary No growth in 48 hours. 06/13/19 17:41 Blood Culture (Wb) #2 - Right Forearm Blood Culture - Preliminary No growth in 48 hours. 06/14/19 07:12 Sputum, Expectorated/Coughed Gram Stain - Final 06/14/19 07:12 Sputum, Expectorated/Coughed Respiratory Culture - Final 06/13/19 23:40 Mucosa - Nasopharyngeal Respiratory Panel (PCR) - Final Laboratory Results 06/15/19 05:30: Creatinine 1.50 H 06/15/19 16:25: POC Glucose 209 H 06/15/19 21:09: POC Glucose 212 H 06/16/19 05:10: WBC 8.6, RBC 3.62 L, Hgb 11.3 L, Hct 36.1 L, MCV 99.7 H, MCH 31.2, MCHC 31.3 L, RDW Std Deviation 56.2 H, RDW Coeff of Jamie 15.2 H, Plt Count 88 L, MPV 10.5, Immature Gran % (Auto) 1.400 H, Neut % (Auto) 93.2 H, Lymph % (Auto) 2.8 L, [place] % (Auto) 2.6, Eos % (Auto) 0.0, Baso % (Auto) 0.0, Absolute Neuts (auto) 8.0 H, Absolute Lymphs (auto) 0.24 L, Nucleated RBC % 0, Differential Comment SCANNED 06/16/19 05:10: Sodium 144, Potassium 4.1, Chloride 109 H, Carbon Dioxide 30.0, Anion Gap 5, BUN 28 H, Creatinine 1.26, Estim Creat Clear Calc 52.99, Est GFR (MDRD) Af Amer 72, Est GFR (MDRD) Non-Af 60, BUN/Creatinine Ratio 22.2 H, Glucose 188 H, Calcium 7.8 L 06/16/19 06:33: POC Glucose 178 H 06/16/19 11:57: POC Glucose 161 H Current Medications Acetaminophen (Tylenol) 650 mg PO Q6H PRN PRN PRN Reason: Pain Score 1-3/Temp > 100.7 F Last Admin: 06/16/19 07:25 Dose: 650 mg Documented by: Albuterol/Ipratropium (Duoneb) 3 ml INHALATION Q4HWA.RT [facility] Last Admin: 06/16/19 11:12 Dose: 3 ml Documented by: Amiodarone HCl (Cordarone) 100 mg PO DAILY [facility] Last Admin: 06/16/19 08:51 Dose: 100 mg Documented by: Atorvastatin Calcium (Lipitor) 10 mg PO QHS [facility] Last Admin: 06/15/19 21:12 Dose: 10 mg Documented by: Enoxaparin Sodium (Lovenox) 40 mg SC DAILY@0600 [facility] Last Admin: 06/16/19 05:18 Dose: 40 mg Documented by: Glucagon () 1 mg IM .X1 PRN PRN Reason: Hypoglycemia Vancomycin IV Pharmacy to Dose (1 ea/ Sodium Chloride) 500 mls @ 250 mls/hr IV X1 PRN; Protocol PRN Reason: Rx to Dose Piperacillin Sod/Tazobactam (Sod 3.375 gm/ Sodium Chloride) 50 mls @ 12.5 mls/hr IV Q8 [facility] Last Infusion: 06/16/19 09:12 Dose: Infused Documented by: Sodium Chloride () 250 mls @ 15 mls/hr IV .[id number] PRN PRN Reason: Saline Flush Last Infusion: 06/16/19 11:39 Dose: 15 mls/hr Documented by: Vancomycin HCl 1,500 mg/ (Sodium Chloride) 530 mls @ 250 mls/hr IV Q12H [facility] Last Infusion: 06/16/19 11:39 Dose: Infused Documented by: Dextrose (Dextrose 10%-Water) 250 mls @ 999 mls/hr IV X1 PRN; Protocol PRN Reason: HYPOGLYCEMIA Insulin Human Lispro (Humalog Kwikpen (Bkc)) 0 unit SC ACHS [facility]; Protocol Last Admin: 06/16/19 11:58 Dose: 1 units Documented by: Methylprednisolone (Solu-Medrol) 40 mg IV Q8 [facility] Last Admin: 06/16/19 05:15 Dose: 40 mg Documented by: Metoprolol Tartrate (Lopressor (Beta Sukhwinder)) 50 mg PO BID [facility] Last Admin: 06/16/19 08:51 Dose: 50 mg Documented by: Multivitamins/Minerals (Multivitamin With Minerals) 1 tablet PO DAILY@0800 [facility] Last Admin: 06/16/19 08:51 Dose: 1 tablet Documented by: Nitroglycerin (Nitrostat) 0.4 mg SUBLINGUAL Q5M PRN PRN Reason: CARDIAC/CHEST PAIN Ondansetron HCl (Zofran) 4 mg IV Q8H PRN PRN PRN Reason: NAUSEA/VOMITING Sodium Chloride () 10 - 40 ml IV UD PRN PRN Reason: SALINE FLUSH Last Admin: 06/16/19 05:11 Dose: 20 ml Documented by: STROKE Vital Signs/Narrative: Vital Signs Temp Pulse Resp BP Pulse Ox 06/16/19 11:59 82 06/16/19 11:47 94 06/16/19 11:16 83 18 12/13/19 10:35 36.6 C 83 24 H 115/75 94 Medical Necessity - Tobacco Use Smoking Status: Former smoker Assessment/Plan All Active Problems (Last Reviewed 06/13/19 @ 15:18 by Janessa Guajardo, VIOLETTE-C) Community-acquired pneumonia (Acute) Acute and chronic respiratory failure with hypoxia (Acute) Bradycardia (Resolved) Chest pain (Resolved) 1. Pleural effusion Previously was significant for transudate of effusion. Patient stated that it is worse when he lies flat. Though did have some atypical cells in it, given his known malignancy, certainly could be a malignant effusion. Plan is to diurese to see if removing some fluid with diuresis can help. If not then patient may require another thoracentesis and possible Pleurx catheter Diuresis stopped due to worsening renal function DW patient about Pleurx catheter. Discussed with the patient that the pulmonary has recommended it as patient had rapid accumulation of fluid since his most recent thoracentesis and patient may be at higher risk of reaccumulation. Explained that any procedure would not be able to be performed until the . Patient was in agreement to Pleurx catheter. Discussed with Dr. Monae I will plan on the to perform the procedure. Afterwards, the patient expressed apprehension and wanted oncology input. Discussed with Dr. Andrade and he spoke with Dr. Ayon, the patient's oncologist, who will come and talk with the patient later today about whether or not he feels Pleurx catheter should be performed or not. 2. Acute on chronic respiratory insufficiency: likely multifactorial Continue with antibiotics and pulm toilet. Vest therapy has been ordered. 3. Systemic inflammatory response syndrome: Present on arrival. Being treated empirically for sepsis though it is not really convincing for my and that the patient has a pneumonia but met 2 of 4 Sirs criteria which could be related with his respiratory issues and not per se related with underlying infectious process. Still unclear if patient has any actual bacterial pneumonia but will de-escalate antibiotics from vancomycin and Pipracil/tazobactam Bactrim. 4. History of non-small cell as well as small cell lung cancer. Per oncology. 5. Edema: Family very concerned about the swelling in his feet which he generally does so at this time and is improved from their description. Explained to them that there is truly a component of third spacing given his malnutrition and underlying malignancy but we do have to exercise caution in regards to diuresis so that we do not over diuresing causing renal injury. 6. CAD stable ASA and plavix held for thoracentesis 7. VTE proph: enoxaparin Greater than 35 minutes of which greater than 50% of the time was counseling about pleural effusions, pleurx catheter. Code Visit Inpatient E&M: 58731 Subs Hosp L3
--- NOTE | 2019-06-16 14:19 | ONC.CONS.INP ---
Consult Referring Physician: Dr. Young Consult Results: Recurrent R pleural effusion. Subjective Date of Service:: 06/16/19 Chief Complaint: SOB, Coughing History of Present Illness: 73y.o.man with Progressive NSCLC-squamous cell is readmitted with SOB associated with increasing R pleural effusion. Thoracentesis and Pleurx cath placement planned. Past Medical History: Chronic Problems (Last Reviewed 06/13/19 @ 15:18 by Janessa Guajardo, VIOLETTE-C) Pleural effusion (Chronic) PND (post-nasal drip) (Chronic) GERD (gastroesophageal reflux disease) (Chronic) History of DVT (deep vein thrombosis) (Chronic) H/O percutaneous transluminal coronary angioplasty (Chronic) PTCA/stent of the mid LAD, prox 1st diag, prox RCA 08/13/10; PTCA/BETO of the Ostial/Prox 1st diag 12/15/16 Hx of appendectomy (Chronic) Thrombocytopenia (Chronic) Anemia (Chronic) Pancytopenia (Chronic) Right upper lobe pulmonary nodule (Chronic) Non-small cell carcinoma of left lung, stage 3 (Chronic) Paroxysmal atrial fibrillation (Chronic) Atherosclerotic heart disease of [place] coronary artery without angina pectoris (Chronic) PTCA/stent of the mid LAD, prox 1st diag, prox RCA 08/13/10; PTCA/BETO of the Ostial/Prox 1st diag 12/15/16 Long-term use of high-risk medication (Chronic) Primary small cell malignant neoplasm of lung, stage 3 (Chronic) Nocturnal hypoxia (Chronic) Radiation esophagitis (Chronic) HLD (hyperlipidemia) (Chronic) Small cell lung cancer (Chronic) History of coronary artery stent placement (Chronic) PTCA/stent of the mid LAD, prox 1st diag, prox RCA 08/13/10; PTCA/BETO of the Ostial/Prox 1st diag 12/15/16 Obesity (BMI 30-39.9) (Chronic) Smoking addiction (Chronic) COPD (chronic obstructive pulmonary disease) (Chronic) HTN (hypertension) (Chronic) Past Medical/Surgical History: Past Medical History - Most Recent Inpatient Visit Past Medical History Start: 06/13/19 19:43 Text: Status: Complete Freq: ONCE Protocol: Document 06/13/19 19:43 MONICA (Rec: 06/13/19 20:02 MONICA [id number]) BMI Required to complete PMH What is Patient's BMI 32.5 Past Medical History Unable History Recalled Yes Query Text:Pt Unable/Family Not Present Neurologic Medical History Hx Stroke/TIA No Hx Dementia/Alzheimer's No Hx Parkinson's Disease No Hx Seizures No Hx Multiple Sclerosis No Hx Migraines No Cardiac Medical History VTE Present on Admission No Hx of Deep Vein Thrombosis/VTE/PE Yes: clot near chemo port in Right shoulder Hx Hypertension Yes: controlled with med Hx Chest Pain/Angina Yes: only to cough with recent cold Hx Heart Attack No Hx Cardiac Surgery/Stents/Etc. Yes: x5 stents Hx Heart Failure No Hx Pacemaker/AICD No Hx Irregular Heartbeat and/or Afib Yes: afib/follows with whg/ last visit 06/2018 Hx Anticoagulant Therapy Yes: aspirin, plavix Query Text:(Coumadin, Aspirin, Plavix, Xarelto, etc.) Hx Pain in Legs when Walking/Leg Cramps No Respiratory Medical History Hx COPD Yes: hx lung cancer Hx Emphysema No Hx Smoking Yes: quit 3 yrs ago/ 2ppds 51 yrs Smoking Status Former smoker Hx Smoking Cessation Date 05/24/16 Hx Smoking Cessation Counseling No Hx Smoking Exposure No Hx Tobacco Use in last 12 months No Hx of Pipe Smoking No Hx Sleep Apnea No CPAP No Do you snore loudly (louder than talking No or can be heard through closed doors)? Do you often feel tired/ fatigued/ No sleepy during daytime? Has anyone observed you stop breathing No during sleep? STOP Results Negative GI Medical History Hx Ulcer No Hx Hepatitis No Hx Cirrhosis No Hx GI Bleed No Hx Unplanned Weight Loss No Genitourinary Medical History Indwelling Catheter in Place on Arrival/ No Admission Hx Renal Disease No Hx Dialysis No Musculoskeletal History Hx Arthritis No Hx Rheumatoid Arthritis No Endocrine Medical History Hx Diabetes No Hx Thyroid Disease No: abnormal lab at this time Hematologic Medical History Hx of Blood Transfusion Yes Hx of Transfusion in last 3 Months No Ever experience any problems with No transfusion(s)? Hx of Preganancy in last 3 Months N/A Nurse Filling Out Transfusion & RWALKER Questions: Date: 06/13/19 Time: 20:00 Psycho/Social Medical History Hx Depression No Hx Anxiety No Hx Behavior Disorder No Hx Alcohol Use No Hx Substance Use No Other Medical History Hx Blood Disorders Yes: thrombocytopenia in the past Hx Anemia Yes: in the past Hx Cancer Yes: small cell lung cancer/ with radiation 2017/now with squamous cell Hx Drug Resistant Organism No Wound/Pressure Injury Present on Arrival No /Admission Query Text:If yes, chart assessment in Shift/Clinical Findings Central Line/PICC/VAD Present on Arrival Yes /Admission Antibiotics within last 7 days? Yes Name of Antibiotic (Include dose/# days vanc taken if known) Risk for Readmission Number of Risk Factors 5 At Risk for Readmission Patient is At Risk For Readmission Patient is eligible for Call Back Y Past Medical History (Last Reviewed 06/13/19 @ 15:18 by CLARISSA Pedroza) PND (post-nasal drip) (Chronic) GERD (gastroesophageal reflux disease) (Chronic) History of DVT (deep vein thrombosis) (Chronic) Paroxysmal atrial fibrillation (Chronic) Atherosclerotic heart disease of [place] coronary artery without angina pectoris (Chronic) Long-term use of high-risk medication (Chronic) Primary small cell malignant neoplasm of lung, stage 3 (Chronic) Nocturnal hypoxia (Chronic) Radiation esophagitis (Chronic) HLD (hyperlipidemia) (Chronic) Small cell lung cancer (Chronic) Obesity (BMI 30-39.9) (Chronic) Smoking addiction (Chronic) COPD (chronic obstructive pulmonary disease) (Chronic) HTN (hypertension) (Chronic) Bradycardia (Resolved) Chest pain (Resolved) Acute cystitis (Inactive) Adjustment and management of vascular access device (Inactive) Chemotherapy induced nausea and vomiting (Inactive) DVT of upper extremity (deep vein thrombosis) (Inactive) Encephalopathy (Inactive) Lightheadedness (Inactive) Pancytopenia (Inactive) Sepsis (Inactive) Past Surgical History (Last Reviewed 06/13/19 @ 15:18 by CLARISSA Pedroza) H/O percutaneous transluminal coronary angioplasty (Chronic) Hx of appendectomy (Chronic) History of coronary artery stent placement (Chronic) Maternal Family History: Family History (Last Reviewed 06/13/19 @ 18:45 by CLARISSA Cardoza) Father Heart disease Mother Cancer Brother Diabetes Son Atrial fibrillation Family History: Cancer - Lung cancer Paternal Family History: Family History (Last Reviewed 06/13/19 @ 18:45 by CLARISSA Cardoza) Father Heart disease Mother Cancer Brother Diabetes Son Atrial fibrillation Family History: Heart Disease Sibling Family History: Family History (Last Reviewed 06/13/19 @ 18:45 by CLARISSA Cardoza) Father Heart disease Mother Cancer Brother Diabetes Son Atrial fibrillation Family History: Diabetes - Social History Lives: Spouse/ Significant Other Smoking Status: Former smoker Alcohol: None Drugs: None Allergies/Adverse Reactions: Allergy/AdvReac Type Severity Reaction Status Date / Time No Known Allergies Allergy Verified 06/13/19 19:52 Review of Systems Constitutional:: Reports: Weakness, Fatigue Cardiovascular:: Denies: Chest pain, Palpitations, Dyspnea on exertion, Orthopnea, PND, Shortness of breath Respiratory: Reports: Shortness of breath upon exertion Gastrointestinal:: Denies: Abdominal pain, Nausea, Vomiting, Diarrhea, Constipation, Hematochezia Genitourinary: Denies: Dysuria, Hematuria, 15, Flank pain Musculoskeletal:: Denies: Back pain, Myalgia, Arthralgia Skin: Denies: Rash, Skin Changes, Wounds Neurological:: Denies: Headache, Dizziness, Visual changes, Tinnitus, Hearing loss Vital Signs Height 5 ft 9 in Weight: 103.8 kg Weight in Pounds 228.8 lbs BMI 28.1 Pulse Ox 94 Temperature 97.8 F Pulse Rate 82 Respiratory Rate 18 Blood Pressure 115/75 Blood Pressure Position Sitting - Physical Exam General: Alert, Oriented x3, No apparent distress Laboratory Data: Microbiology 06/13/19 16:50 Blood Culture - Preliminary Blood Culture (Wb) - Central Line No growth in 48 hours. 06/13/19 17:41 Blood Culture - Preliminary Blood Culture (Wb) #2 - Right Forearm No growth in 48 hours. 06/14/19 07:12 Gram Stain - Final Sputum, Expectorated/Coughed Respiratory Culture - Final 06/13/19 23:40 Respiratory Panel (PCR) - Final Mucosa - Nasopharyngeal Laboratory Tests 06/16/19 06/16/19 06/16/19 Range/Units 11:57 06:33 05:10 WBC (4.4-11.0) K/mm3 RBC (4.6-6.2) M/mm3 Hgb (13.0-16.5) g/dL Hct (40-54) % MCV (80-94) fL MCH (27.0-32.0) pg MCHC (32-36) g/dL RDW Std Deviation (35.1-43.9) fl RDW Coeff of Jamie (11.6-14.6) % Plt Count (150-450) K/mm3 MPV (6.2-12.0) fl Immature Gran % (Auto) (0.0-0.9) % Neut % (Auto) (47-70) % Lymph % (Auto) (19-41) % Aiken % (Auto) (0-10) % Eos % (Auto) (0-5) % Baso % (Auto) (0-1) % Absolute Neuts (auto) (2.0-7.7) X10^3/uL Absolute Lymphs (auto) (0.83-4.51) X10^3/uL Nucleated RBC % (0-5) % Differential Comment Sodium 144 (136-145) mmol/L Potassium 4.1 (3.5-5.1) mmol/L Chloride 109 H (98-107) mmol/L Carbon Dioxide 30.0 (21.0-32.0) mmol/L Anion Gap 5 (5-15) BUN 28 H (7-18) mg/dL Creatinine 1.26 (0.70-1.30) mg/dL Estim Creat Clear Calc 52.99 ml/min Est GFR (MDRD) Af Amer 72 (>60) mL/min Est GFR (MDRD) Non-Af 60 (>60) mL/min BUN/Creatinine Ratio 22.2 H (10-20) RATIO Glucose 188 H (74-106) mg/dL Calcium 7.8 L (8.5-10.1) mg/dL POC Glucose 161 H 178 H (70-110) mg/dL 06/16/19 06/15/19 06/15/19 Range/Units 05:10 21:09 16:25 WBC 8.6 (4.4-11.0) K/mm3 RBC 3.62 L (4.6-6.2) M/mm3 Hgb 11.3 L (13.0-16.5) g/dL Hct 36.1 L (40-54) % MCV 99.7 H (80-94) fL MCH 31.2 (27.0-32.0) pg MCHC 31.3 L (32-36) g/dL RDW Std Deviation 56.2 H (35.1-43.9) fl RDW Coeff of Jamie 15.2 H (11.6-14.6) % Plt Count 88 L (150-450) K/mm3 MPV 10.5 (6.2-12.0) fl Immature Gran % (Auto) 1.400 H (0.0-0.9) % Neut % (Auto) 93.2 H (47-70) % Lymph % (Auto) 2.8 L (19-41) % Aiken % (Auto) 2.6 (0-10) % Eos % (Auto) 0.0 (0-5) % Baso % (Auto) 0.0 (0-1) % Absolute Neuts (auto) 8.0 H (2.0-7.7) X10^3/uL Absolute Lymphs (auto) 0.24 L (0.83-4.51) X10^3/uL Nucleated RBC % 0 (0-5) % Differential Comment SCANNED Sodium (136-145) mmol/L Potassium (3.5-5.1) mmol/L Chloride (98-107) mmol/L Carbon Dioxide (21.0-32.0) mmol/L Anion Gap (5-15) BUN (7-18) mg/dL Creatinine (0.70-1.30) mg/dL Estim Creat Clear Calc ml/min Est GFR (MDRD) Af Amer (>60) mL/min Est GFR (MDRD) Non-Af (>60) mL/min BUN/Creatinine Ratio (10-20) RATIO Glucose (74-106) mg/dL Calcium (8.5-10.1) mg/dL POC Glucose 212 H 209 H (70-110) mg/dL 06/15/19 Range/Units 05:30 WBC (4.4-11.0) K/mm3 RBC (4.6-6.2) M/mm3 Hgb (13.0-16.5) g/dL Hct (40-54) % MCV (80-94) fL MCH (27.0-32.0) pg MCHC (32-36) g/dL RDW Std Deviation (35.1-43.9) fl RDW Coeff of Jamie (11.6-14.6) % Plt Count (150-450) K/mm3 MPV (6.2-12.0) fl Immature Gran % (Auto) (0.0-0.9) % Neut % (Auto) (47-70) % Lymph % (Auto) (19-41) % [place] % (Auto) (0-10) % Eos % (Auto) (0-5) % Baso % (Auto) (0-1) % Absolute Neuts (auto) (2.0-7.7) X10^3/uL Absolute Lymphs (auto) (0.83-4.51) X10^3/uL Nucleated RBC % (0-5) % Differential Comment Sodium (136-145) mmol/L Potassium (3.5-5.1) mmol/L Chloride (98-107) mmol/L Carbon Dioxide (21.0-32.0) mmol/L Anion Gap (5-15) BUN (7-18) mg/dL Creatinine 1.50 H (0.70-1.30) mg/dL Estim Creat Clear Calc ml/min Est GFR (MDRD) Af Amer (>60) mL/min Est GFR (MDRD) Non-Af (>60) mL/min BUN/Creatinine Ratio (10-20) RATIO Glucose (74-106) mg/dL Calcium (8.5-10.1) mg/dL POC Glucose (70-110) mg/dL Diagnostic Data: Diagnostic Data Chest X-Ray 06/13/19 16:22 IMPRESSION: Cardiomegaly with hyperexpansion of the left lung unchanged. Increased opacities at right base as described, representing atelectasis or early/developing pneumonia. No acute finding. Electronically Signed: Ezio Rincon MD at 16:41 EST , Service support , Chest CT 06/14/19 05:55 IMPRESSION: Right hilar and perihilar mass lesion is not significantly changed from the May study. Mediastinal and left hilar lymphadenopathy is not significantly changed. Right pleural effusion is not significantly changed. Chronic pleural and parenchymal changes in the left lung. Atherosclerosis. No new abnormalities are demonstrated. Electronically Signed: Rahat Pope MD at 6:53 EST , Service support , Assessment and Plan NSCLC with R pleural effusion and SOB. Discussed clinical problem with Pt and his . They will agree to Thoracentesis and Pleurx cath placement. Suggestion is to proceed with Thoracentesis and Pleurx cath placement. If stable and discharged home, he should follow up in [facility]. Will not follow further on this admission. Medications: Prescriptions This Visit Medication Instructions Recorded Simvastatin 20 mg PO QHS 06/13/19 Medications Added to Medication List This Visit Category Date Time Status Ampicillin/Sulbactam [Unasyn] 3 gm Med 06/16/19 18:00 Ordered 0.9% Normal Saline 100 ml IV Q6 Enoxaparin [Lovenox] Med 06/16/19 06:00 Active 40 mg SC DAILY@0600 Primary Care Provider: Rogelio Green DO Referring Provider: Elina Berrios MD - Problem List (1) Pleural effusion Status: Chronic (2) Non-small cell carcinoma of left lung, stage 3 Status: Chronic Code Visit Office Visits / Consults: [id number] IP Consult L3
[2019-06-16 17:06] LABS: Bedside Glucose 193 mg/dL (70-110)
[2019-06-16] MEDS: Atorvastatin Calcium 10 MG Tablet PO (21:36)
[2019-06-16 22:40] LABS: Bedside Glucose 234 mg/dL (70-110)
--- NOTE | 2019-06-16 23:45 | NURSING ---
Report given to oncoming rn at this time.
[2019-06-17] VITALS (18 sets, daily range): BP systolic 117–146; BP diastolic 72–90; PULSE 74–138; RESP 12–30; TEMP 36.4–36.6; O2SAT 90–98
[2019-06-17] MEDS: Enoxaparin 40 MG/0.4 ML Syringe SC (05:38)
[2019-06-17] MEDS: Insulin Lispro 100 UNIT/ML INSULN.PEN SC ×4 (06:58→22:10)
[2019-06-17 06:59] LABS: Vancomycin, Trough Level 17.1 ug/mL (5.0-15.0)
[2019-06-17 07:06] LABS: Bedside Glucose 193 mg/dL (70-110)
[2019-06-17] MEDS: Ipratropium/Albuterol Sulfate 3 ML AMPUL.NEB INHALATION ×4 (07:09→22:31)
--- NOTE | 2019-06-17 08:29 | PCM.PN.PUL ---
Subjective: Patient reports he has been doing well. Patient is having more orthopneic type symptoms leading to sleeping in the chair. Patient reports little production with the use of the vest and has improved cough through the day. No chest pain is reported. Patient is tolerating p.o. well. - Physical Exam Vitals/I&O's: Vital Signs Temp Pulse Resp BP Pulse Ox 36.6 C 79 20 H 146/90 H 92 06/17/19 03:46 06/17/19 07:56 06/17/19 03:46 06/17/19 03:46 06/17/19 03:46 Oxygen Flow Rate (L/min) 2.5 Oxygen Delivery Method Nasal Cannula Weight: 102.8 kg Body Mass Index (BMI) 32.5 Intake and Output for Last 24 Hours 06/15/19 06/16/19 06/17/19 23:59 23:59 23:59 Intake Total 1971.75 / 1971.75 2084.75 / 2084.75 279 / 279 Output Total 1050 / 1050 1075 / 1075 350 / 350 Balance 921.75 / 921.75 1009.75 / 1009.75 -71 / -71 General: Alert, Oriented x3, Cooperative, No apparent distress, Well developed, Well nourished, - - Obese. No conversational dyspnea. HEENT: Atraumatic, PERRLA, EOMI, Normocephalic, - - Glasses in place. Oral: Moist Mucosa, No Gingival or Mucosal Lesions/ Ulcerations Neck: Supple, No JVD, No Nodes, Trachea Midline Lungs: No rhonchi, No wheeze, No rales, Diminished - Right greater than left, - - Dullness to percussion Cardiovascular: Regular rate, Regular Rhythm, Normal S1, Normal S2, No murmurs, No rub noted, No Gallop Abdomen: Bowel Sounds Present, Soft, Non Tender, Non-Distended, Obese Extremities: No cyanosis, Clubbing, Edema Skin: No rashes, No breakdown Musculoskeletal: No Tenderness to Palpation of Joints or Extremities Lymphatic: No Cervical, Supraclavicular, or Inguinal Adenopathy Neurological: Cranial nerves II-XII grossly intact, Neuro grossly intact, Motor Exam 5/5 strength throughout Psych/Mental Status: Alert and oriented to time, place, person, mood and affect Microbiology Past 72 Hours 06/13/19 16:50 Blood Culture (Wb) - Central Line Blood Culture - Preliminary No growth in 48 hours. 06/13/19 17:41 Blood Culture (Wb) #2 - Right Forearm Blood Culture - Preliminary No growth in 48 hours. 06/14/19 07:12 Sputum, Expectorated/Coughed Gram Stain - Final 06/14/19 07:12 Sputum, Expectorated/Coughed Respiratory Culture - Final 06/13/19 23:40 Mucosa - Nasopharyngeal Respiratory Panel (PCR) - Final Laboratory Results 06/16/19 11:57: POC Glucose 161 H 06/16/19 17:00: POC Glucose 193 H 06/16/19 21:34: POC Glucose 234 H 06/17/19 05:27: Vancomycin Trough 17.1 H 06/17/19 06:56: POC Glucose 193 H Current Medications Acetaminophen (Tylenol) 650 mg PO Q6H PRN PRN PRN Reason: Pain Score 1-3/Temp > 100.7 F Last Admin: 06/16/19 07:25 Dose: 650 mg Documented by: Albuterol/Ipratropium (Duoneb) 3 ml INHALATION Q4HWA.RT [facility] Last Admin: 06/17/19 07:09 Dose: 3 ml Documented by: Amiodarone HCl (Cordarone) 100 mg PO DAILY [facility] Last Admin: 06/16/19 08:51 Dose: 100 mg Documented by: Atorvastatin Calcium (Lipitor) 10 mg PO QHS [facility] Last Admin: 06/16/19 21:36 Dose: 10 mg Documented by: Enoxaparin Sodium (Lovenox) 40 mg SC DAILY@0600 [facility] Last Admin: 06/17/19 05:38 Dose: 40 mg Documented by: Glucagon () 1 mg IM .X1 PRN PRN Reason: Hypoglycemia Sodium Chloride () 250 mls @ 15 mls/hr IV .[id number] PRN PRN Reason: Saline Flush Last Admin: 06/17/19 04:13 Dose: 15 mls/hr Documented by: Dextrose (Dextrose 10%-Water) 250 mls @ 999 mls/hr IV X1 PRN; Protocol PRN Reason: HYPOGLYCEMIA Ampicillin Sodium/Sulbactam (Sodium 3 gm/ Sodium Chloride) 112 mls @ 150 mls/hr IV Q6 [facility] Last Admin: 06/17/19 05:36 Dose: 150 mls/hr Documented by: Insulin Human Lispro (Humalog Kwikpen (Bkc)) 0 unit SC ACHS [facility]; Protocol Last Admin: 06/17/19 06:58 Dose: 1 units Documented by: Methylprednisolone (Solu-Medrol) 40 mg IV Q8 [facility] Last Admin: 06/17/19 05:38 Dose: 40 mg Documented by: Metoprolol Tartrate (Lopressor (Beta Sukhwinder)) 50 mg PO BID [facility] Last Admin: 06/16/19 21:36 Dose: 50 mg Documented by: Multivitamins/Minerals (Multivitamin With Minerals) 1 tablet PO DAILY@0800 [facility] Last Admin: 06/16/19 08:51 Dose: 1 tablet Documented by: Nitroglycerin (Nitrostat) 0.4 mg SUBLINGUAL Q5M PRN PRN Reason: CARDIAC/CHEST PAIN Ondansetron HCl (Zofran) 4 mg IV Q8H PRN PRN PRN Reason: NAUSEA/VOMITING Sodium Chloride () 10 - 40 ml IV UD PRN PRN Reason: SALINE FLUSH Last Admin: 06/16/19 05:11 Dose: 20 ml Documented by: Medical Necessity - Tobacco Use Smoking Status: Former smoker Assessment/Plan All Active Problems (Last Reviewed 06/13/19 @ 15:18 by Janessa Guajardo NP-C) Community-acquired pneumonia (Acute) Acute and chronic respiratory failure with hypoxia (Acute) Bradycardia (Resolved) Chest pain (Resolved) RECOMMENDATIONS: 1. Await Pleurx catheter placement on Wednesday 2. Continue to wean supplemental oxygen as tolerated. 3. Holding aspirin and Plavix 4. Likely okay to discontinue vest therapy from my perspective 5. Follow-up in our office in 2 weeks 6. Okay to discontinue antibiotics and monitor clinically IMPRESSIONS: 1. Acute hypoxemic respiratory failure Clinical suspicion for postobstructive pneumonia initially. However, patient has not had any significant fever, productive cough or leukocytosis during hospitalization. Likely okay to discontinue antibiotics from my perspective. Patient will have a Pleurx catheter placed on Wednesday by surgery. Likely okay to be discharged from a pulmonary perspective after this is completed with training. Okay to discontinue vest therapy from my perspective. Orthopnea would be expected as malignant pleural effusion is likely progressing with time. 2. 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 Ayon. Patient appears to have progression of lung cancer. 3. History of coronary artery disease/paroxysmal atrial fibrillation/hyperlipidemia The patient's home aspirin and Plavix are going to be held, should thoracentesis need to be performed. 4. CODE status: Informed full CODE STATUS Code Visit Inpatient E&M: 10312 Subs Hosp L2
[2019-06-17] MEDS: Multivitamins,Ther W-Minerals Tablet 1 TABLET PO (08:45)
[2019-06-17] MEDS: Amiodarone 200 MG Tablet 100 MG PO (08:45)
[2019-06-17] MEDS: Metoprolol Tartrate 50 MG Tablet PO ×2 (08:45→22:10)
--- NOTE | 2019-06-17 09:26 | PCM.PN.SRG ---
Subjective: Patient states that his breathing is doing much better when he is sitting in the chair versus in the bed, otherwise patient has no complaints. - Physical Exam Vitals/I&O's: Vital Signs Temp Pulse Resp BP Pulse Ox 97.9 F 89 20 H 128/78 H 92 06/17/19 03:46 06/17/19 08:45 06/17/19 03:46 06/17/19 08:45 06/17/19 03:46 Oxygen Flow Rate (L/min) 2.5 Oxygen Delivery Method Nasal Cannula Weight: 226 lb 10.163 oz Body Mass Index (BMI) 32.5 Intake and Output for Last 24 Hours 06/15/19 06/16/19 06/17/19 23:59 23:59 23:59 Intake Total 1971.75 / 1971.75 2084.75 / 2084.75 391 / 391 Output Total 1050 / 1050 1075 / 1075 350 / 350 Balance 921.75 / 921.75 1009.75 / 1009.75 41 / 41 General: Alert, Oriented x3, Cooperative, No apparent distress Cardiovascular: Regular rate Abdomen: Soft, Non Tender, Non-Distended Neurological: Cranial nerves II-XII grossly intact Psych/Mental Status: Normal Affect Microbiology Past 72 Hours 06/13/19 16:50 Blood Culture (Wb) - Central Line Blood Culture - Preliminary No growth in 48 hours. 06/13/19 17:41 Blood Culture (Wb) #2 - Right Forearm Blood Culture - Preliminary No growth in 48 hours. 06/14/19 07:12 Sputum, Expectorated/Coughed Gram Stain - Final 06/14/19 07:12 Sputum, Expectorated/Coughed Respiratory Culture - Final 06/13/19 23:40 Mucosa - Nasopharyngeal Respiratory Panel (PCR) - Final Laboratory Results 06/16/19 11:57: POC Glucose 161 H 06/16/19 17:00: POC Glucose 193 H 06/16/19 21:34: POC Glucose 234 H 06/17/19 05:27: Vancomycin Trough 17.1 H 06/17/19 06:56: POC Glucose 193 H Current Medications Acetaminophen (Tylenol) 650 mg PO Q6H PRN PRN PRN Reason: Pain Score 1-3/Temp > 100.7 F Last Admin: 06/16/19 07:25 Dose: 650 mg Documented by: Albuterol/Ipratropium (Duoneb) 3 ml INHALATION Q4HWA.RT [facility] Last Admin: 06/17/19 07:09 Dose: 3 ml Documented by: Amiodarone HCl (Cordarone) 100 mg PO DAILY [facility] Last Admin: 06/17/19 08:45 Dose: 100 mg Documented by: Atorvastatin Calcium (Lipitor) 10 mg PO QHS [facility] Last Admin: 06/16/19 21:36 Dose: 10 mg Documented by: Enoxaparin Sodium (Lovenox) 40 mg SC DAILY@0600 [facility] Last Admin: 06/17/19 05:38 Dose: 40 mg Documented by: Glucagon () 1 mg IM .X1 PRN PRN Reason: Hypoglycemia Guaifenesin (Mucinex) 1,200 mg PO BID [facility] Sodium Chloride () 250 mls @ 15 mls/hr IV .[id number] PRN PRN Reason: Saline Flush Last Admin: 06/17/19 04:13 Dose: 15 mls/hr Documented by: Dextrose (Dextrose 10%-Water) 250 mls @ 999 mls/hr IV X1 PRN; Protocol PRN Reason: HYPOGLYCEMIA Ampicillin Sodium/Sulbactam (Sodium 3 gm/ Sodium Chloride) 112 mls @ 150 mls/hr IV Q6 [facility] Last Infusion: 06/17/19 08:46 Dose: Infused Documented by: Insulin Human Lispro (Humalog Suripen (Bkc)) 0 unit SC ACHS [facility]; Protocol Last Admin: 06/17/19 06:58 Dose: 1 units Documented by: Methylprednisolone (Solu-Medrol) 40 mg IV Q8 [facility] Last Admin: 06/17/19 05:38 Dose: 40 mg Documented by: Metoprolol Tartrate (Lopressor (Beta Sukhwinder)) 50 mg PO BID [facility] Last Admin: 06/17/19 08:45 Dose: 50 mg Documented by: Multivitamins/Minerals (Multivitamin With Minerals) 1 tablet PO DAILY@0800 [facility] Last Admin: 06/17/19 08:45 Dose: 1 tablet Documented by: Nitroglycerin (Nitrostat) 0.4 mg SUBLINGUAL Q5M PRN PRN Reason: CARDIAC/CHEST PAIN Ondansetron HCl (Zofran) 4 mg IV Q8H PRN PRN PRN Reason: NAUSEA/VOMITING Sodium Chloride () 10 - 40 ml IV UD PRN PRN Reason: SALINE FLUSH Last Admin: 06/16/19 05:11 Dose: 20 ml Documented by: Medical Necessity - Tobacco Use Smoking Status: Former smoker Assessment/Plan All Active Problems (Last Reviewed 06/13/19 @ 15:18 by Janessa Guajardo, VIOLETTE-C) Community-acquired pneumonia (Acute) Acute and chronic respiratory failure with hypoxia (Acute) Bradycardia (Resolved) Chest pain (Resolved) 73-year-old male with lung cancer 1. The patient has recurrent right pleural effusion. Pleurx catheter placement scheduled on Wednesday with Dr. Anthony, which oncology is also agreeable with placement. Will make patient n.p.o. after midnight on Wednesday and hold any anticoagulation along with continue to hold the aspirin Plavix. Katlyn Soriano M.D. Pager: [phone] [facility] [address] [place] [address], [facility], [address] [place] [address] Office: [phone] Code Visit Inpatient E&M: 47911 Subs Hosp L1
[2019-06-17] MEDS: guaiFENesin 1,200 MG Tablet 1200 MG PO ×2 (10:57→22:10)
[2019-06-17] MEDS: 0.9% Saline Lock 10 ML Syringe IV (11:37)
[2019-06-17 11:46] LABS: Bedside Glucose 167 mg/dL (70-110)
--- NOTE | 2019-06-17 12:19 | PN_ITS ---
Subjective: Patient seen and examined. He has no complaints and feels well. Review of stems otherwise negative. He is awaiting Pleurx catheter placement for r ecurrent malignant pleural effusion on Wednesday. Labs and vitals reviewed. Vitals/I&O's: Vital Signs Temp Pulse Resp BP Pulse Ox 97.9 F 89 20 H 128/78 H 90 06/17/19 08:00 06/17/19 08:45 06/17/19 08:00 06/17/19 08:45 06/17/19 08:00 Oxygen Flow Rate (L/min) 2.5 Oxygen Delivery Method Nasal Cannula Weight: 226 lb 10.163 oz Body Mass Index (BMI) 32.5 Intake and Output for Last 24 Hours 06/15/19 06/16/19 06/17/19 23:59 23:59 23:59 Intake Total 1971.75 / 1971.75 2084.75 / 2084.75 391 / 391 Output Total 1050 / 1050 1075 / 1075 350 / 350 Balance 921.75 / 921.75 1009.75 / 1009.75 41 / 41 General: Alert, Oriented x3, Cooperative, No apparent distress HEENT: Atraumatic, PERRLA, EOMI, Normocephalic Oral: Moist Mucosa Neck: Supple, No JVD, Negative Carotid Bruits Lungs: - - decreased breath sounds in right mid and lower lung basstet, with decreased vocal fremitus, indicative of pleural effusion. Cardiovascular: Regular rate, Regular Rhythm, Normal S1, Normal S2, No murmurs Abdomen: Bowel Sounds Present, Soft, Non Tender, Non-Distended Extremities: No clubbing, No cyanosis, No edema, Capillary Refill Less than 3 Seconds Skin: No rashes, No breakdown Musculoskeletal: No Tenderness to Palpation of Joints or Extremities Lymphatic: No Cervical, Supraclavicular, or Inguinal Adenopathy Neurological: Cranial nerves II-XII grossly intact, Neuro grossly intact, Motor Exam 5/5 strength throughout Psych/Mental Status: Normal Affect, Appropriate, Alert and oriented to time, place, person, mood and affect Microbiology Past 72 Hours 06/13/19 16:50 Blood Culture (Wb) - Central Line Blood Culture - Preliminary No growth in 48 hours. 06/13/19 17:41 Blood Culture (Wb) #2 - Right Forearm Blood Culture - Preliminary No growth in 48 hours. 06/14/19 07:12 Sputum, Expectorated/Coughed Gram Stain - Final 06/14/19 07:12 Sputum, Expectorated/Coughed Respiratory Culture - Final 06/13/19 23:40 Mucosa - Nasopharyngeal Respiratory Panel (PCR) - Final Laboratory Results 06/16/19 17:00: POC Glucose 193 H 06/16/19 21:34: POC Glucose 234 H 06/17/19 05:27: Vancomycin Trough 17.1 H 06/17/19 06:56: POC Glucose 193 H 06/17/19 11:35: POC Glucose 167 H Diagnostic Data Chest X-Ray 06/13/19 16:22 IMPRESSION: Cardiomegaly with hyperexpansion of the left lung unchanged. Increased opacities at right base as described, representing atelectasis or early/developing pneumonia. No acute finding. Electronically Signed: Ezio Rincon MD at 16:41 EST , Service support , Chest CT 06/14/19 05:55 IMPRESSION: Right hilar and perihilar mass lesion is not significantly changed from the May study. Mediastinal and left hilar lymphadenopathy is not significantly changed. Right pleural effusion is not significantly changed. Chronic pleural and parenchymal changes in the left lung. Atherosclerosis. No new abnormalities are demonstrated. Electronically Signed: Rahat Pope MD at 6:53 EST , Service support , Current Medications Acetaminophen (Tylenol) 650 mg PO Q6H PRN PRN PRN Reason: Pain Score 1-3/Temp > 100.7 F Last Admin: 06/16/19 07:25 Dose: 650 mg Documented by: Albuterol/Ipratropium (Duoneb) 3 ml INHALATION Q4HWA.RT [facility] Last Admin: 06/17/19 11:25 Dose: Not Given Documented by: Amiodarone HCl (Cordarone) 100 mg PO DAILY [facility] Last Admin: 06/17/19 08:45 Dose: 100 mg Documented by: Atorvastatin Calcium (Lipitor) 10 mg PO QHS [facility] Last Admin: 06/16/19 21:36 Dose: 10 mg Documented by: Enoxaparin Sodium (Lovenox) 40 mg SC DAILY@0600 [facility] Last Admin: 06/17/19 05:38 Dose: 40 mg Documented by: Glucagon () 1 mg IM .X1 PRN PRN Reason: Hypoglycemia Guaifenesin (Mucinex) 1,200 mg PO BID [facility] Last Admin: 06/17/19 10:57 Dose: 1,200 mg Documented by: Sodium Chloride () 250 mls @ 15 mls/hr IV .[id number] PRN PRN Reason: Saline Flush Last Admin: 06/17/19 04:13 Dose: 15 mls/hr Documented by: Dextrose (Dextrose 10%-Water) 250 mls @ 999 mls/hr IV X1 PRN; Protocol PRN Reason: HYPOGLYCEMIA Ampicillin Sodium/Sulbactam (Sodium 3 gm/ Sodium Chloride) 112 mls @ 150 mls/hr IV Q6 [facility] Last Admin: 06/17/19 11:37 Dose: 150 mls/hr Documented by: Insulin Human Lispro (Humalog Kwikpen (Bkc)) 0 unit SC ACHS [facility]; Protocol Last Admin: 06/17/19 11:36 Dose: 1 units Documented by: Methylprednisolone (Solu-Medrol) 40 mg IV Q8 [facility] Last Admin: 06/17/19 05:38 Dose: 40 mg Documented by: Metoprolol Tartrate (Lopressor (Beta Sukhwinder)) 50 mg PO BID [facility] Last Admin: 06/17/19 08:45 Dose: 50 mg Documented by: Multivitamins/Minerals (Multivitamin With Minerals) 1 tablet PO DAILY@0800 [facility] Last Admin: 06/17/19 08:45 Dose: 1 tablet Documented by: Nitroglycerin (Nitrostat) 0.4 mg SUBLINGUAL Q5M PRN PRN Reason: CARDIAC/CHEST PAIN Ondansetron HCl (Zofran) 4 mg IV Q8H PRN PRN PRN Reason: NAUSEA/VOMITING Sodium Chloride () 10 - 40 ml IV UD PRN PRN Reason: SALINE FLUSH Last Admin: 06/17/19 11:37 Dose: 10 ml Documented by: STROKE Vital Signs/Narrative: Vital Signs Pulse BP 06/17/19 08:45 89 128/78 H Medical Necessity - Tobacco Use Smoking Status: Former smoker Assessment/Plan All Active Problems (Last Reviewed 06/13/19 @ 15:18 by Janessa Guajardo, VIOLETTE-C) Community-acquired pneumonia (Acute) Acute and chronic respiratory failure with hypoxia (Acute) Bradycardia (Resolved) Chest pain (Resolved) 1. Right sided pleural effusion * It is recurrent. Previous thoracentesis with pleural effusion showed transudate. * He is to have Pleurx catheter placed on Wednesday. * Was been diuresed but this was stopped on account of worsening renal function. * Keep n.p.o. after midnight for Pleurx catheter insertion tomorrow. * 2. Acute hypoxic respiratory failure: * Pulmonology on board. Thought to multifactorial from lung cancer and pleural effusion. * On pulmonary toileting * Antibiotics discontinued today as per pulmonary. * 3. History of non-small and small cell lung cancer: Follows up with oncology- Dr Ayon 4. SIRS criteria: * resolved. * he was treated empirically for this due to pneumonia was started on IV vancomycin and Zosyn. Antibiotics were de-escalated to Unasyn yesterday. Blood cultures and respiratory cultures have remained negative. * He also no leukocytosis. * Will discontinue antibiotics today. 5. History of CAD: Aspirin and Plavix on hold as he is going to have Pleurx catheter placed. 6. Hyperlipidemia: On statin 7. Paroxysmal A. fib: Rate and rhythm controlled. On amiodarone and metoprolol. Prophylaxis: Lovenox Code Visit Inpatient E&M: 24995 Subs Hosp L2
--- NOTE | 2019-06-17 15:42 | CPS ---
Pt placed on Bipap post aerosol rx for nap
[2019-06-17 17:11] LABS: Bedside Glucose 246 mg/dL (70-110)
[2019-06-17] MEDS: Atorvastatin Calcium 10 MG Tablet PO (22:10)
[2019-06-17 22:16] LABS: Bedside Glucose 196 mg/dL (70-110)
[2019-06-18] VITALS (18 sets, daily range): BP systolic 122–128; BP diastolic 73–85; PULSE 74–89; RESP 12–28; TEMP 36.3–36.7; O2SAT 92–96
[2019-06-18] MEDS: Ipratropium/Albuterol Sulfate 3 ML AMPUL.NEB INHALATION ×6 (02:37→22:30)
[2019-06-18] MEDS: 0.9% Saline Lock 10 ML Syringe IV (05:03)
[2019-06-18] MEDS: Enoxaparin 40 MG/0.4 ML Syringe SC (05:28)
[2019-06-18 06:23] LABS: Absolute Lymphocyte Count 0.41 X10^3/uL (0.83-4.51); Absolute Neutrophil Count 5.1 X10^3/uL (2.0-7.7); Hematocrit 36.6 % (40-54); Hemoglobin 11.4 g/dL (13.0-16.5); Lymphocyte # 0.41 X10^3/ul (4.0); Lymphocyte % 6.8 % (19-41); Mean Corp Hgb Conc 31.1 g/dL (32-36); Mean Corpuscular Hgb 31.1 pg (27.0-32.0); Mean Platelet Vol. 10.7 fl (6.2-12.0); Monocyte# 0.39 X10^3/uL; Monocyte% 6.5 % (0-10); NRBC Flagged by Analyzer 0 % (0-5); Neutrophil # 5.08 X10^3/uL (2.7-7.7); Neutrophil % 84.9 % (47-70); POSITIVE COUNT YES; POSITIVE DIFFERENTIAL YES; Platelet Count 97 K/mm3 (150-450); RBC Distribution Width CV 15.1 % (11.6-14.6); RBC Distribution Width SD 55.8 fl (35.1-43.9); Red Blood Count 3.66 M/mm3 (4.6-6.2)
[2019-06-18 06:40] LABS: Bedside Glucose 139 mg/dL (70-110)
[2019-06-18 06:41] LABS: Differential Indicated SCAN CRITERIA MET
[2019-06-18 07:01] LABS: Anion Gap 3 (5-15); BUN 29 mg/dL (7-18); Calcium,Total 7.9 mg/dL (8.5-10.1); Chloride 106 mmol/L (98-107); Creatinine, Serum 1.26 mg/dL (0.70-1.30); EST Glomerular Filtration Rate 60 mL/min (>60); Est Glom Filt Rate - Afr Amer 72 mL/min (>60); Estimated Creatinine Clearance 52.99 ml/min; Glucose 160 mg/dL (74-106); Potassium 3.9 mmol/L (3.5-5.1); Sodium Level 142 mmol/L (136-145)
[2019-06-18] MEDS: Multivitamins,Ther W-Minerals Tablet 1 TABLET PO (07:46)
[2019-06-18] MEDS: predniSONE 20 MG Tablet 40 MG PO (07:46)
--- NOTE | 2019-06-18 08:48 | PCM.PN.SRG ---
Subjective: Patient states his breathing has been about the same today. Patient just completed ambulation in the [facility] thinks he needs a breathing treatment. - Physical Exam Vitals/I&O's: Vital Signs Temp Pulse Resp BP Pulse Ox 97.8 F 84 18 128/85 H 93 06/18/19 02:20 06/18/19 07:28 06/18/19 07:28 06/18/19 02:20 06/18/19 07:28 Oxygen Flow Rate (L/min) 2.5 Oxygen Delivery Method Nasal Cannula Weight: 225 lb 15.581 oz Body Mass Index (BMI) 32.5 Intake and Output for Last 24 Hours 06/16/19 06/17/19 06/18/19 23:59 23:59 23:59 Intake Total 2084.75 / 2084.75 817.25 / 817.25 360 / 360 Output Total 1075 / 1075 875 / 875 400 / 400 Balance 1009.75 / 1009.75 -57.75 / -57.75 -40 / -40 General: Alert, Oriented x3, Cooperative, No apparent distress Lungs: Wheezes Cardiovascular: Regular rate Abdomen: Soft, Non Tender, Non-Distended Microbiology Past 72 Hours 06/13/19 16:50 Blood Culture (Wb) - Central Line Blood Culture - Preliminary No growth in 48 hours. 06/13/19 17:41 Blood Culture (Wb) #2 - Right Forearm Blood Culture - Preliminary No growth in 48 hours. 06/14/19 07:12 Sputum, Expectorated/Coughed Gram Stain - Final 06/14/19 07:12 Sputum, Expectorated/Coughed Respiratory Culture - Final Laboratory Results 06/17/19 11:35: POC Glucose 167 H 06/17/19 16:32: POC Glucose 246 H 06/17/19 21:50: POC Glucose 196 H 06/18/19 05:00: WBC 6.0, RBC 3.66 L, Hgb 11.4 L, Hct 36.6 L, MCV 100.0 H, MCH 31.1, MCHC 31.1 L, RDW Std Deviation 55.8 H, RDW Coeff of Jamie 15.1 H, Plt Count 97 L, MPV 10.7, Immature Gran % (Auto) 1.800 H, Neut % (Auto) 84.9 H, Lymph % (Auto) 6.8 L, [place] % (Auto) 6.5, Eos % (Auto) 0.0, Baso % (Auto) 0.0, Absolute Neuts (auto) 5.1, Absolute Lymphs (auto) 0.41 L, Nucleated RBC % 0 06/18/19 05:00: Sodium 142, Potassium 3.9, Chloride 106, Carbon Dioxide 33.0 H, Anion Gap 3 L, BUN 29 H, Creatinine 1.26, Estim Creat Clear Calc 52.99, Est GFR (MDRD) Af Amer 72, Est GFR (MDRD) Non-Af 60, BUN/Creatinine Ratio 23.0 H, Glucose 160 H, Calcium 7.9 L 06/18/19 06:34: POC Glucose 139 H Current Medications Acetaminophen (Tylenol) 650 mg PO Q6H PRN PRN PRN Reason: Pain Score 1-3/Temp > 100.7 F Last Admin: 06/16/19 07:25 Dose: 650 mg Documented by: Albuterol/Ipratropium (Duoneb) 3 ml INHALATION Q4HWA.RT [facility] Last Admin: 06/18/19 07:28 Dose: 3 ml Documented by: Amiodarone HCl (Cordarone) 100 mg PO DAILY [facility] Last Admin: 06/17/19 08:45 Dose: 100 mg Documented by: Atorvastatin Calcium (Lipitor) 10 mg PO QHS [facility] Last Admin: 06/17/19 22:10 Dose: 10 mg Documented by: Enoxaparin Sodium (Lovenox) 40 mg SC DAILY@0600 [facility] Last Admin: 06/18/19 05:28 Dose: 40 mg Documented by: Glucagon () 1 mg IM .X1 PRN PRN Reason: Hypoglycemia Guaifenesin (Mucinex) 1,200 mg PO BID [facility] Last Admin: 06/17/19 22:10 Dose: 1,200 mg Documented by: Sodium Chloride () 250 mls @ 15 mls/hr IV .[id number] PRN PRN Reason: Saline Flush Last Infusion: 06/17/19 08:30 Dose: Infused Documented by: Dextrose (Dextrose 10%-Water) 250 mls @ 999 mls/hr IV X1 PRN; Protocol PRN Reason: HYPOGLYCEMIA Insulin Human Lispro (Humalog [place] (Bkc)) 0 unit SC ACHS [facility]; Protocol Last Admin: 06/18/19 06:44 Dose: Not Given Documented by: Metoprolol Tartrate (Lopressor (Beta Sukhwinder)) 50 mg PO BID [facility] Last Admin: 06/17/19 22:10 Dose: 50 mg Documented by: Multivitamins/Minerals (Multivitamin With Minerals) 1 tablet PO DAILY@0800 [facility] Last Admin: 06/18/19 07:46 Dose: 1 tablet Documented by: Nitroglycerin (Nitrostat) 0.4 mg SUBLINGUAL Q5M PRN PRN Reason: CARDIAC/CHEST PAIN Ondansetron HCl (Zofran) 4 mg IV Q8H PRN PRN PRN Reason: NAUSEA/VOMITING Prednisone () 40 mg PO DAILY@0800 [facility] Last Admin: 06/18/19 07:46 Dose: 40 mg Documented by: Sodium Chloride () 10 - 40 ml IV UD PRN PRN Reason: SALINE FLUSH Last Admin: 06/18/19 05:03 Dose: 30 ml Documented by: Medical Necessity - Tobacco Use Smoking Status: Former smoker Assessment/Plan All Active Problems (Last Reviewed 06/13/19 @ 15:18 by Janessa Guajardo NP-C) Community-acquired pneumonia (Acute) Acute and chronic respiratory failure with hypoxia (Acute) Bradycardia (Resolved) Chest pain (Resolved) 73-year-old male with lung cancer 1. The patient has recurrent right pleural effusion. Pleurx catheter placement scheduled on Wednesday with Dr. Anthony, which oncology is also agreeable with placement. ok for water only after midnight until 8am Wednesday and hold any anticoagulation along with continue to hold the aspirin Plavix. Katlyn Soriano M.D. Pager: [phone] [facility] [address] [place] [address], Outpatient [facility], [address] [place] [id number] Office: [phone] Code Visit Inpatient E&M: 95102 Subs Hosp L1
[2019-06-18] MEDS: guaiFENesin 1,200 MG Tablet 1200 MG PO ×2 (08:54→21:32)
[2019-06-18] MEDS: Amiodarone 200 MG Tablet 100 MG PO (08:54)
[2019-06-18] MEDS: Metoprolol Tartrate 50 MG Tablet PO ×2 (08:54→21:32)
--- NOTE | 2019-06-18 09:55 | PCM.PN.PUL ---
Subjective: Patient did well overnight. No acute issues were reported. Patient feels subjectively unchanged compared to previous. Still having difficulties with orthopnea, but no productive cough is reported. Objective: Patient to have Pleurx catheter placement tomorrow. - Physical Exam Vitals/I&O's: Vital Signs Temp Pulse Resp BP Pulse Ox 36.6 C 82 18 122/78 H 92 06/18/19 08:20 06/18/19 08:54 06/18/19 08:20 06/18/19 08:54 06/18/19 08:20 Oxygen Flow Rate (L/min) 2.5 Oxygen Delivery Method Nasal Cannula Weight: 102.5 kg Body Mass Index (BMI) 32.5 Intake and Output for Last 24 Hours 06/16/19 06/17/19 06/18/19 23:59 23:59 23:59 Intake Total 2084.75 / 2084.75 817.25 / 817.25 360 / 360 Output Total 1075 / 1075 875 / 875 400 / 400 Balance 1009.75 / 1009.75 -57.75 / -57.75 -40 / -40 General: Alert, Oriented x3, Cooperative, No apparent distress, Well developed, Well nourished, - - Speaking in full sentences. Nasal cannula oxygen in place. HEENT: Atraumatic, PERRLA, EOMI, Normocephalic, - - No scleral icterus or injection noted Oral: Moist Mucosa, No Gingival or Mucosal Lesions/ Ulcerations Neck: Supple, No JVD, No Nodes, Trachea Midline Lungs: No rhonchi, No wheeze, No rales, Diminished - Significantly on the right, - - Decreased expansion of the right chest Cardiovascular: Normal S1, Normal S2, No murmurs, Irregular Rate, No rub noted, No Gallop Abdomen: Bowel Sounds Present, Soft, Non Tender, Non-Distended, Obese Extremities: No clubbing, No cyanosis, Edema Skin: No rashes, No breakdown Musculoskeletal: No Tenderness to Palpation of Joints or Extremities Lymphatic: No Cervical, Supraclavicular, or Inguinal Adenopathy Neurological: Cranial nerves II-XII grossly intact, Neuro grossly intact, Motor Exam 5/5 strength throughout Psych/Mental Status: Alert and oriented to time, place, person, mood and affect Microbiology Past 72 Hours 06/13/19 16:50 Blood Culture (Wb) - Central Line Blood Culture - Preliminary No growth in 48 hours. 06/13/19 17:41 Blood Culture (Wb) #2 - Right Forearm Blood Culture - Preliminary No growth in 48 hours. 06/14/19 07:12 Sputum, Expectorated/Coughed Gram Stain - Final 06/14/19 07:12 Sputum, Expectorated/Coughed Respiratory Culture - Final Laboratory Results 06/17/19 11:35: POC Glucose 167 H 06/17/19 16:32: POC Glucose 246 H 06/17/19 21:50: POC Glucose 196 H 06/18/19 05:00: WBC 6.0, RBC 3.66 L, Hgb 11.4 L, Hct 36.6 L, MCV 100.0 H, MCH 31.1, MCHC 31.1 L, RDW Std Deviation 55.8 H, RDW Coeff of Jamie 15.1 H, Plt Count 97 L, MPV 10.7, Immature Gran % (Auto) 1.800 H, Neut % (Auto) 84.9 H, Lymph % (Auto) 6.8 L, [place] % (Auto) 6.5, Eos % (Auto) 0.0, Baso % (Auto) 0.0, Absolute Neuts (auto) 5.1, Absolute Lymphs (auto) 0.41 L, Nucleated RBC % 0 06/18/19 05:00: Sodium 142, Potassium 3.9, Chloride 106, Carbon Dioxide 33.0 H, Anion Gap 3 L, BUN 29 H, Creatinine 1.26, Estim Creat Clear Calc 52.99, Est GFR (MDRD) Af Amer 72, Est GFR (MDRD) Non-Af 60, BUN/Creatinine Ratio 23.0 H, Glucose 160 H, Calcium 7.9 L 06/18/19 06:34: POC Glucose 139 H Current Medications Acetaminophen (Tylenol) 650 mg PO Q6H PRN PRN PRN Reason: Pain Score 1-3/Temp > 100.7 F Last Admin: 06/16/19 07:25 Dose: 650 mg Documented by: Albuterol Sulfate (Ventolin Aerosols) 2.5 mg INHALATION Q2H PRN PRN PRN Reason: SOB &/OR WHEEZING Albuterol/Ipratropium (Duoneb) 3 ml INHALATION Q4HWA.RT [facility] Last Admin: 06/18/19 07:28 Dose: 3 ml Documented by: Amiodarone HCl (Cordarone) 100 mg PO DAILY [facility] Last Admin: 06/18/19 08:54 Dose: 100 mg Documented by: Atorvastatin Calcium (Lipitor) 10 mg PO QHS [facility] Last Admin: 06/17/19 22:10 Dose: 10 mg Documented by: Enoxaparin Sodium (Lovenox) 40 mg SC DAILY@0600 [facility] Last Admin: 06/18/19 05:28 Dose: 40 mg Documented by: Glucagon () 1 mg IM .X1 PRN PRN Reason: Hypoglycemia Guaifenesin (Mucinex) 1,200 mg PO BID [facility] Last Admin: 06/18/19 08:54 Dose: 1,200 mg Documented by: Sodium Chloride () 250 mls @ 15 mls/hr IV .[id number] PRN PRN Reason: Saline Flush Last Infusion: 06/17/19 08:30 Dose: Infused Documented by: Dextrose (Dextrose 10%-Water) 250 mls @ 999 mls/hr IV X1 PRN; Protocol PRN Reason: HYPOGLYCEMIA Insulin Human Lispro (Humalog Kwikpen (Bkc)) 0 unit SC [facility]; Protocol Last Admin: 06/18/19 06:44 Dose: Not Given Documented by: Metoprolol Tartrate (Lopressor (Beta Sukhwinder)) 50 mg PO BID [facility] Last Admin: 06/18/19 08:54 Dose: 50 mg Documented by: Multivitamins/Minerals (Multivitamin With Minerals) 1 tablet PO DAILY@0800 [facility] Last Admin: 06/18/19 07:46 Dose: 1 tablet Documented by: Nitroglycerin (Nitrostat) 0.4 mg SUBLINGUAL Q5M PRN PRN Reason: CARDIAC/CHEST PAIN Ondansetron HCl (Zofran) 4 mg IV Q8H PRN PRN PRN Reason: NAUSEA/VOMITING Prednisone () 40 mg PO DAILY@0800 [facility] Last Admin: 06/18/19 07:46 Dose: 40 mg Documented by: Sodium Chloride () 10 - 40 ml IV UD PRN PRN Reason: SALINE FLUSH Last Admin: 06/18/19 05:03 Dose: 30 ml Documented by: Medical Necessity - Tobacco Use Smoking Status: Former smoker Assessment/Plan All Active Problems (Last Reviewed 06/13/19 @ 15:18 by CLARISSA Pedroza) Community-acquired pneumonia (Acute) Acute and chronic respiratory failure with hypoxia (Acute) Bradycardia (Resolved) Chest pain (Resolved) RECOMMENDATIONS: 1. Await Pleurx catheter placement on Wednesday 2. Continue to wean supplemental oxygen as tolerated. 3. Holding aspirin and Plavix 4. We will reevaluate following Pleurx placement tomorrow 5. Follow-up in our office in 2 weeks 6. Potential discharge following Pleurx catheter placement IMPRESSIONS: 1. Acute hypoxemic respiratory failure Clinical suspicion for postobstructive pneumonia initially. However, patient has not had any significant fever, productive cough or leukocytosis during hospitalization. Patient appears to be doing well off of antibiotics for 24 hours. Patient is to have a Pleurx catheter placed on Wednesday by surgery. Will reevaluate the patient after this, but it is likely that the malignant pleural effusion is adding to patient's symptomatology. If patient responds well, potential discharge following the procedure from a pulmonary perspective would be appropriate. 2. 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 Ayon. Patient appears to have progression of lung cancer. 3. History of coronary artery disease/paroxysmal atrial fibrillation/hyperlipidemia The patient's home aspirin and Plavix are going to be held, should thoracentesis need to be performed. 4. CODE status: Informed full CODE STATUS Code Visit Inpatient E&M: 13038 Subs Hosp L2
[2019-06-18 12:10] LABS: Bedside Glucose 141 mg/dL (70-110)
--- NOTE | 2019-06-18 12:36 | PCM.PN.HOSP ---
Subjective: Patient seen and examined this morning. He had no complaints. He states the Mucinex is helping a lot. Review of systems otherwise negative. Labs and vitals reviewed. He is for Pleurx catheter placement tomorrow. Vitals/I&O's: Vital Signs Temp Pulse Resp BP Pulse Ox 97.9 F 78 16 122/78 H 92 06/18/19 08:20 06/18/19 11:31 06/18/19 11:31 06/18/19 08:54 06/18/19 08:20 Oxygen Flow Rate (L/min) 2.5 Oxygen Delivery Method Nasal Cannula Weight: 225 lb 15.581 oz Body Mass Index (BMI) 32.5 Intake and Output for Last 24 Hours 06/16/19 06/17/19 06/18/19 23:59 23:59 23:59 Intake Total 2084.75 / 2084.75 817.25 / 817.25 360 / 360 Output Total 1075 / 1075 875 / 875 400 / 400 Balance 1009.75 / 1009.75 -57.75 / -57.75 -40 / -40 General: Alert, Oriented x3, Cooperative, No apparent distress HEENT: Atraumatic, PERRLA, EOMI, Normocephalic Oral: Moist Mucosa Neck: Supple, No JVD, Negative Carotid Bruits Lungs: - - decreased breath sounds in right mid and lower lung [place] Cardiovascular: Regular rate, Regular Rhythm, Normal S1, Normal S2, No murmurs Abdomen: Bowel Sounds Present, Soft, Non Tender, Non-Distended Extremities: No clubbing, No cyanosis, No edema, Capillary Refill Less than 3 Seconds Skin: No rashes, No breakdown Musculoskeletal: No Tenderness to Palpation of Joints or Extremities Lymphatic: No Cervical, Supraclavicular, or Inguinal Adenopathy Neurological: Cranial nerves II-XII grossly intact, Neuro grossly intact, Motor Exam 5/5 strength throughout Psych/Mental Status: Normal Affect, Appropriate, Alert and oriented to time, place, person, mood and affect Microbiology Past 72 Hours 06/13/19 16:50 Blood Culture (Wb) - Central Line Blood Culture - Preliminary No growth in 48 hours. 06/13/19 17:41 Blood Culture (Wb) #2 - Right Forearm Blood Culture - Preliminary No growth in 48 hours. 06/14/19 07:12 Sputum, Expectorated/Coughed Gram Stain - Final 06/14/19 07:12 Sputum, Expectorated/Coughed Respiratory Culture - Final Laboratory Results 06/17/19 16:32: POC Glucose 246 H 06/17/19 21:50: POC Glucose 196 H 06/18/19 05:00: WBC 6.0, RBC 3.66 L, Hgb 11.4 L, Hct 36.6 L, MCV 100.0 H, MCH 31.1, MCHC 31.1 L, RDW Std Deviation 55.8 H, RDW Coeff of Jamie 15.1 H, Plt Count 97 L, MPV 10.7, Immature Gran % (Auto) 1.800 H, Neut % (Auto) 84.9 H, Lymph % (Auto) 6.8 L, [place] % (Auto) 6.5, Eos % (Auto) 0.0, Baso % (Auto) 0.0, Absolute Neuts (auto) 5.1, Absolute Lymphs (auto) 0.41 L, Nucleated RBC % 0 06/18/19 05:00: Sodium 142, Potassium 3.9, Chloride 106, Carbon Dioxide 33.0 H, Anion Gap 3 L, BUN 29 H, Creatinine 1.26, Estim Creat Clear Calc 52.99, Est GFR (MDRD) Af Amer 72, Est GFR (MDRD) Non-Af 60, BUN/Creatinine Ratio 23.0 H, Glucose 160 H, Calcium 7.9 L 06/18/19 06:34: POC Glucose 139 H 06/18/19 12:01: POC Glucose 141 H Current Medications Acetaminophen (Tylenol) 650 mg PO Q6H PRN PRN PRN Reason: Pain Score 1-3/Temp > 100.7 F Last Admin: 06/16/19 07:25 Dose: 650 mg Documented by: Albuterol Sulfate (Ventolin Aerosols) 2.5 mg INHALATION Q2H PRN PRN PRN Reason: SOB &/OR WHEEZING Albuterol/Ipratropium (Duoneb) 3 ml INHALATION Q4HWA.RT [facility] Last Admin: 06/18/19 11:31 Dose: 3 ml Documented by: Amiodarone HCl (Cordarone) 100 mg PO DAILY [facility] Last Admin: 06/18/19 08:54 Dose: 100 mg Documented by: Atorvastatin Calcium (Lipitor) 10 mg PO QHS [facility] Last Admin: 06/17/19 22:10 Dose: 10 mg Documented by: Enoxaparin Sodium (Lovenox) 40 mg SC DAILY@0600 [facility] Last Admin: 06/18/19 05:28 Dose: 40 mg Documented by: Glucagon () 1 mg IM .X1 PRN PRN Reason: Hypoglycemia Guaifenesin (Mucinex) 1,200 mg PO BID [facility] Last Admin: 06/18/19 08:54 Dose: 1,200 mg Documented by: Sodium Chloride () 250 mls @ 15 mls/hr IV .[id number] PRN PRN Reason: Saline Flush Last Infusion: 06/17/19 08:30 Dose: Infused Documented by: Dextrose (Dextrose 10%-Water) 250 mls @ 999 mls/hr IV X1 PRN; Protocol PRN Reason: HYPOGLYCEMIA Insulin Human Lispro (Humalog Kwikpen (Bkc)) 0 unit SC [facility]; Protocol Last Admin: 06/18/19 06:44 Dose: Not Given Documented by: Metoprolol Tartrate (Lopressor (Beta Sukhwinder)) 50 mg PO BID [facility] Last Admin: 06/18/19 08:54 Dose: 50 mg Documented by: Multivitamins/Minerals (Multivitamin With Minerals) 1 tablet PO DAILY@0800 [facility] Last Admin: 06/18/19 07:46 Dose: 1 tablet Documented by: Nitroglycerin (Nitrostat) 0.4 mg SUBLINGUAL Q5M PRN PRN Reason: CARDIAC/CHEST PAIN Ondansetron HCl (Zofran) 4 mg IV Q8H PRN PRN PRN Reason: NAUSEA/VOMITING Prednisone () 40 mg PO DAILY@0800 [facility] Last Admin: 06/18/19 07:46 Dose: 40 mg Documented by: Sodium Chloride () 10 - 40 ml IV UD PRN PRN Reason: SALINE FLUSH Last Admin: 06/18/19 05:03 Dose: 30 ml Documented by: STROKE Vital Signs/Narrative: Vital Signs Pulse Resp BP 06/18/19 11:31 78 16 06/18/19 08:54 82 122/78 H Medical Necessity - Tobacco Use Smoking Status: Former smoker Assessment/Plan All Active Problems (Last Reviewed 06/13/19 @ 15:18 by CLARISSA Pedroza) Community-acquired pneumonia (Acute) Acute and chronic respiratory failure with hypoxia (Acute) Bradycardia (Resolved) Chest pain (Resolved) 1. Right sided recurrent pleural effusion Previous thoracentesis with pleural effusion showed transudate. He is to have Pleurx catheter placed tomorrow. Keep n.p.o. after midnight for Pleurx catheter insertion tomorrow. 2. Acute hypoxic respiratory failure: Pulmonology on board. Thought to multifactorial from lung cancer and pleural effusion. On pulmonary toileting and Mucinex Antibiotics discontinued as there was no clear evidence of infection. 3. History of non-small and small cell lung cancer: Follows up with oncology- Dr Ayon 4. SIRS criteria: resolved. no evidence of infection, so antibiotics discontinued. 5. History of CAD: Aspirin and Plavix on hold as he is going to have Pleurx catheter placed. 6. Hyperlipidemia: On statin 7. Paroxysmal A. fib: Rate and rhythm controlled. On amiodarone and metoprolol. Prophylaxis: Lovenox. Will hold lovenox today o/a of Pleurex catheter insertion. SCDs. Code Visit Inpatient E&M: 72269 Subs Hosp L2
[2019-06-18] MEDS: Insulin Lispro 100 UNIT/ML INSULN.PEN SC ×2 (16:57→21:32)
[2019-06-18 17:06] LABS: Bedside Glucose 170 mg/dL (70-110)
[2019-06-18] MEDS: Atorvastatin Calcium 10 MG Tablet PO (21:32)
[2019-06-18 22:05] LABS: Bedside Glucose 215 mg/dL (70-110)
[2019-06-19] VITALS (27 sets, daily range): BP systolic 106–134; BP diastolic 61–96; PULSE 68–97; RESP 12–28; TEMP 36.1–37.2; O2SAT 90–97
[2019-06-19 00:26] LABS: Bedside Glucose 188 mg/dL (70-110)
[2019-06-19] MEDS: 0.9% Saline Lock 10 ML Syringe IV ×2 (00:27→05:50)
[2019-06-19] MEDS: Ondansetron 4 MG/2 ML Vial IV (00:27)
--- NOTE | 2019-06-19 00:45 | CPS ---
pt unable to tolerate bipap
[2019-06-19] MEDS: Ipratropium/Albuterol Sulfate 3 ML AMPUL.NEB INHALATION ×5 (04:09→19:07)
[2019-06-19 04:56] LABS: Basophil# 0.01 X10^3/uL; Basophil% 0.2 % (0-1); Hematocrit 37.5 % (40-54); Hemoglobin 11.9 g/dL (13.0-16.5); Lymphocyte % 6.7 % (19-41); Mean Corp Hgb Conc 31.7 g/dL (32-36); Mean Corpuscular Hgb 31.3 pg (27.0-32.0); Mean Corpuscular Volume 98.7 fL (80-94); Mean Platelet Vol. 10.1 fl (6.2-12.0); Monocyte# 0.41 X10^3/uL; Monocyte% 6.9 % (0-10); NRBC Flagged by Analyzer 0 % (0-5); Neutrophil # 4.95 X10^3/uL (2.7-7.7); Neutrophil % 83.3 % (47-70); POSITIVE DIFFERENTIAL YES; Platelet Count 102 K/mm3 (150-450); RBC Distribution Width CV 14.6 % (11.6-14.6); RBC Distribution Width SD 53.8 fl (35.1-43.9); White Blood Count 5.9 K/mm3 (4.4-11.0)
[2019-06-19 05:03] LABS: Anion Gap 3 (5-15); BUN 31 mg/dL (7-18); Chloride 105 mmol/L (98-107); Creatinine, Serum 1.15 mg/dL (0.70-1.30); EST Glomerular Filtration Rate 66 mL/min (>60); Est Glom Filt Rate - Afr Amer 80 mL/min (>60); Estimated Creatinine Clearance 58.06 ml/min; Glucose 136 mg/dL (74-106); Potassium 4.5 mmol/L (3.5-5.1); Sodium Level 142 mmol/L (136-145)
[2019-06-19 05:06] LABS: Differential Indicated SCAN CRITERIA MET
[2019-06-19 05:55] LABS: Bedside Glucose 140 mg/dL (70-110)
[2019-06-19 06:25] LABS: Differential Comment SCANNED
--- NOTE | 2019-06-19 08:12 | PN.SURG_ITS ---
Subjective: Patient doing well this morning with no complaints - Physical Exam Vitals/I&O's: Vital Signs Temp Pulse Resp BP Pulse Ox 98 F 80 20 H 119/85 H 94 06/19/19 02:58 06/19/19 07:55 06/19/19 07:55 06/19/19 02:58 06/19/19 07:55 Oxygen Flow Rate (L/min) 2 Oxygen Delivery Method Nasal Cannula Weight: 229 lb 15.074 oz Body Mass Index (BMI) 32.5 Intake and Output for Last 24 Hours 06/17/19 06/18/19 06/19/19 23:59 23:59 23:59 Intake Total 817.25 / 817.25 1460 / 1460 Output Total 875 / 875 1300 / 1650 725 / 725 Balance -57.75 / -57.75 160 / -190 -725 / -725 General: Alert, Oriented x3 HEENT: Atraumatic Cardiovascular: Regular rate, Regular Rhythm Abdomen: Soft Microbiology Past 72 Hours 06/13/19 16:50 Blood Culture (Wb) - Central Line Blood Culture - Preliminary No growth in 48 hours. 06/13/19 17:41 Blood Culture (Wb) #2 - Right Forearm Blood Culture - Preliminary No growth in 48 hours. 06/14/19 07:12 Sputum, Expectorated/Coughed Gram Stain - Final 06/14/19 07:12 Sputum, Expectorated/Coughed Respiratory Culture - Final Laboratory Results 06/18/19 12:01: POC Glucose 141 H 06/18/19 16:52: POC Glucose 170 H 06/18/19 21:31: POC Glucose 215 H 06/19/19 00:21: POC Glucose 188 H 06/19/19 04:30: WBC 5.9, RBC 3.80 L, Hgb 11.9 L, Hct 37.5 L, MCV 98.7 H, MCH 31.3, MCHC 31.7 L, RDW Std Deviation 53.8 H, RDW Coeff of Jamie 14.6, Plt Count 102 L, MPV 10.1, Immature Gran % (Auto) 2.900 H, Neut % (Auto) 83.3 H, Lymph % (Auto) 6.7 L, [place] % (Auto) 6.9, Eos % (Auto) 0.0, Baso % (Auto) 0.2, Absolute Neuts (auto) 5.0, Absolute Lymphs (auto) 0.40 L, Nucleated RBC % 0, Differential Comment SCANNED 06/19/19 04:30: Sodium 142, Potassium 4.5, Chloride 105, Carbon Dioxide 34.0 H, Anion Gap 3 L, BUN 31 H, Creatinine 1.15, Estim Creat Clear Calc 58.06, Est GFR (MDRD) Af Amer 80, Est GFR (MDRD) Non-Af 66, BUN/Creatinine Ratio 27.0 H, Glucose 136 H, Calcium 8.0 L 06/19/19 05:48: POC Glucose 140 H Current Medications Acetaminophen (Tylenol) 650 mg PO Q6H PRN PRN PRN Reason: Pain Score 1-3/Temp > 100.7 F Last Admin: 06/16/19 07:25 Dose: 650 mg Documented by: Albuterol Sulfate (Ventolin Aerosols) 2.5 mg INHALATION Q2H PRN PRN PRN Reason: SOB &/OR WHEEZING Albuterol/Ipratropium (Duoneb) 3 ml INHALATION Q4HWA.RT [facility] Last Admin: 06/19/19 07:55 Dose: 3 ml Documented by: Amiodarone HCl (Cordarone) 100 mg PO DAILY [facility] Last Admin: 06/18/19 08:54 Dose: 100 mg Documented by: Atorvastatin Calcium (Lipitor) 10 mg PO QHS [facility] Last Admin: 06/18/19 21:32 Dose: 10 mg Documented by: Glucagon () 1 mg IM .X1 PRN PRN Reason: Hypoglycemia Guaifenesin (Mucinex) 1,200 mg PO BID [facility] Last Admin: 06/18/19 21:32 Dose: 1,200 mg Documented by: Sodium Chloride () 250 mls @ 15 mls/hr IV .[id number] PRN PRN Reason: Saline Flush Last Infusion: 06/17/19 08:30 Dose: Infused Documented by: Dextrose (Dextrose 10%-Water) 250 mls @ 999 mls/hr IV X1 PRN; Protocol PRN Reason: HYPOGLYCEMIA Insulin Human Lispro (Humalog Kwikpen (Bkc)) 0 unit SC ACHS [facility]; Protocol Last Admin: 06/19/19 06:57 Dose: Not Given Documented by: Metoprolol Tartrate (Lopressor (Beta Sukhwinder)) 50 mg PO BID [facility] Last Admin: 06/18/19 21:32 Dose: 50 mg Documented by: Multivitamins/Minerals (Multivitamin With Minerals) 1 tablet PO DAILY@0800 [facility] Last Admin: 06/18/19 07:46 Dose: 1 tablet Documented by: Nitroglycerin (Nitrostat) 0.4 mg SUBLINGUAL Q5M PRN PRN Reason: CARDIAC/CHEST PAIN Ondansetron HCl (Zofran) 4 mg IV Q8H PRN PRN PRN Reason: NAUSEA/VOMITING Last Admin: 06/19/19 00:27 Dose: 4 mg Documented by: Prednisone () 40 mg PO DAILY@0800 [facility] Last Admin: 06/18/19 07:46 Dose: 40 mg Documented by: Sodium Chloride () 10 - 40 ml IV UD PRN PRN Reason: SALINE FLUSH Last Admin: 06/19/19 05:50 Dose: 30 ml Documented by: Medical Necessity - Tobacco Use Smoking Status: Former smoker Assessment/Plan All Active Problems (Last Reviewed 06/13/19 @ 15:18 by Janessa Guajardo NP-C) Community-acquired pneumonia (Acute) Acute and chronic respiratory failure with hypoxia (Acute) Bradycardia (Resolved) Chest pain (Resolved) 73-year-old male with metastatic lung cancer 1. I was consulted for right side Pleurx catheter placement. It seems that all services are on board. I am planning on placing a right-sided Pleurx catheter this afternoon. Please do not perform thoracentesis as I would like fluid in the pleural cavity for placement of catheter. Tawanda Anthony MD Pager: [facility] [address] [place] [address], [address] [place] [address] Office:
--- NOTE | 2019-06-19 08:48 | PN_ITS ---
Subjective: Patient seen and examined. He feels well and had an uneventful night. Review of systems otherwise negative. He is for Pleurx catheter placement today. Labs and vitals reviewed. He remains on 2 L of oxygen. Vitals/I&O's: Vital Signs Temp Pulse Resp BP Pulse Ox 98 F 80 20 H 119/85 H 94 06/19/19 02:58 06/19/19 07:55 06/19/19 07:55 06/19/19 02:58 06/19/19 07:55 Oxygen Flow Rate (L/min) 2 Oxygen Delivery Method Nasal Cannula Weight: 229 lb 15.074 oz Body Mass Index (BMI) 32.5 Intake and Output for Last 24 Hours 06/17/19 06/18/19 06/19/19 23:59 23:59 23:59 Intake Total 817.25 / 817.25 1460 / 1460 Output Total 875 / 875 1300 / 1650 725 / 725 Balance -57.75 / -57.75 160 / -190 -725 / -725 General: Alert, Oriented x3, Cooperative, No apparent distress HEENT: Atraumatic, PERRLA, EOMI, Normocephalic Oral: Moist Mucosa Neck: Supple, No JVD, Negative Carotid Bruits Lungs: - - decreased breath sounds in right mid and lower lung [place], on 2L of oxygen Cardiovascular: Regular rate, Regular Rhythm, Normal S1, Normal S2, No murmurs Abdomen: Bowel Sounds Present, Soft, Non Tender, Non-Distended Extremities: No clubbing, No cyanosis, No edema, Capillary Refill Less than 3 Seconds Skin: No rashes, No breakdown Musculoskeletal: No Tenderness to Palpation of Joints or Extremities Lymphatic: No Cervical, Supraclavicular, or Inguinal Adenopathy Neurological: Cranial nerves II-XII grossly intact, Neuro grossly intact, Motor Exam 5/5 strength throughout Psych/Mental Status: Normal Affect, Appropriate, Alert and oriented to time, place, person, mood and affect Microbiology Past 72 Hours 06/13/19 16:50 Blood Culture (Wb) - Central Line Blood Culture - Preliminary No growth in 48 hours. 06/13/19 17:41 Blood Culture (Wb) #2 - Right Forearm Blood Culture - Preliminary No growth in 48 hours. 06/14/19 07:12 Sputum, Expectorated/Coughed Gram Stain - Final 06/14/19 07:12 Sputum, Expectorated/Coughed Respiratory Culture - Final Laboratory Results 06/18/19 12:01: POC Glucose 141 H 06/18/19 16:52: POC Glucose 170 H 06/18/19 21:31: POC Glucose 215 H 06/19/19 00:21: POC Glucose 188 H 06/19/19 04:30: WBC 5.9, RBC 3.80 L, Hgb 11.9 L, Hct 37.5 L, MCV 98.7 H, MCH 31.3, MCHC 31.7 L, RDW Std Deviation 53.8 H, RDW Coeff of Jamie 14.6, Plt Count 102 L, MPV 10.1, Immature Gran % (Auto) 2.900 H, Neut % (Auto) 83.3 H, Lymph % (Auto) 6.7 L, [place] % (Auto) 6.9, Eos % (Auto) 0.0, Baso % (Auto) 0.2, Absolute Neuts (auto) 5.0, Absolute Lymphs (auto) 0.40 L, Nucleated RBC % 0, Differential Comment SCANNED 06/19/19 04:30: Sodium 142, Potassium 4.5, Chloride 105, Carbon Dioxide 34.0 H, Anion Gap 3 L, BUN 31 H, Creatinine 1.15, Estim Creat Clear Calc 58.06, Est GFR (MDRD) Af Amer 80, Est GFR (MDRD) Non-Af 66, BUN/Creatinine Ratio 27.0 H, Glucose 136 H, Calcium 8.0 L 06/19/19 05:48: POC Glucose 140 H Diagnostic Data Chest X-Ray 06/13/19 16:22 IMPRESSION: Cardiomegaly with hyperexpansion of the left lung unchanged. Increased opacities at right base as described, representing atelectasis or early/developing pneumonia. No acute finding. Electronically Signed: Ezio Rincon MD at 16:41 EST , Service support , Chest CT 06/14/19 05:55 IMPRESSION: Right hilar and perihilar mass lesion is not significantly changed from the May study. Mediastinal and left hilar lymphadenopathy is not significantly changed. Right pleural effusion is not significantly changed. Chronic pleural and parenchymal changes in the left lung. Atherosclerosis. No new abnormalities are demonstrated. Electronically Signed: Rahat Pope MD at 6:53 EST , Service support , Current Medications Acetaminophen (Tylenol) 650 mg PO Q6H PRN PRN PRN Reason: Pain Score 1-3/Temp > 100.7 F Last Admin: 06/16/19 07:25 Dose: 650 mg Documented by: Albuterol Sulfate (Ventolin Aerosols) 2.5 mg INHALATION Q2H PRN PRN PRN Reason: SOB &/OR WHEEZING Albuterol/Ipratropium (Duoneb) 3 ml INHALATION Q4HWA.RT [facility] Last Admin: 06/19/19 07:55 Dose: 3 ml Documented by: Amiodarone HCl (Cordarone) 100 mg PO DAILY [facility] Last Admin: 06/18/19 08:54 Dose: 100 mg Documented by: Atorvastatin Calcium (Lipitor) 10 mg PO QHS [facility] Last Admin: 06/18/19 21:32 Dose: 10 mg Documented by: Glucagon () 1 mg IM .X1 PRN PRN Reason: Hypoglycemia Guaifenesin (Mucinex) 1,200 mg PO BID [facility] Last Admin: 06/19/19 08:23 Dose: Not Given Documented by: Sodium Chloride () 250 mls @ 15 mls/hr IV .[id number] PRN PRN Reason: Saline Flush Last Infusion: 06/17/19 08:30 Dose: Infused Documented by: Dextrose (Dextrose 10%-Water) 250 mls @ 999 mls/hr IV X1 PRN; Protocol PRN Reason: HYPOGLYCEMIA Insulin Human Lispro (Humalog Kwikpen (Bkc)) 0 unit SC ACHS [facility]; Protocol Last Admin: 06/19/19 06:57 Dose: Not Given Documented by: Metoprolol Tartrate (Lopressor (Beta Sukhwinder)) 50 mg PO BID [facility] Last Admin: 06/18/19 21:32 Dose: 50 mg Documented by: Multivitamins/Minerals (Multivitamin With Minerals) 1 tablet PO DAILY@0800 [facility] Last Admin: 06/19/19 08:23 Dose: Not Given Documented by: Nitroglycerin (Nitrostat) 0.4 mg SUBLINGUAL Q5M PRN PRN Reason: CARDIAC/CHEST PAIN Ondansetron HCl (Zofran) 4 mg IV Q8H PRN PRN PRN Reason: NAUSEA/VOMITING Last Admin: 06/19/19 00:27 Dose: 4 mg Documented by: Prednisone () 40 mg PO DAILY@0800 [facility] Last Admin: 06/19/19 08:23 Dose: Not Given Documented by: Sodium Chloride () 10 - 40 ml IV UD PRN PRN Reason: SALINE FLUSH Last Admin: 06/19/19 05:50 Dose: 30 ml Documented by: STROKE Vital Signs/Narrative: Vital Signs Pulse Resp Pulse Ox 06/19/19 07:55 80 20 H 94 Medical Necessity - Tobacco Use Smoking Status: Former smoker Assessment/Plan All Active Problems (Last Reviewed 06/13/19 @ 15:18 by Janessa Guajardo NP-C) Community-acquired pneumonia (Acute) Acute and chronic respiratory failure with hypoxia (Acute) Bradycardia (Resolved) Chest pain (Resolved) 1. Right sided recurrent pleural effusion * Previous thoracentesis with pleural effusion showed transudate. * He is to have Pleurx catheter placed today by Dr Anthony * 2. Acute hypoxic respiratory failure: * Pulmonology on board. Thought to multifactorial from lung cancer and pleural effusion. * On pulmonary toileting and Mucinex * Antibiotics discontinued as there was no clear evidence of infection. * on 2L of oxygen by nasal canula * 3. History of non-small and small cell lung cancer: Follows up with oncology- Dr Ayon 4. SIRS criteria: * resolved. 5. History of CAD: Aspirin and Plavix on hold as he is going to have Pleurx catheter placed today 6. Hyperlipidemia: On statin 7. Paroxysmal A. fib: Rate and rhythm controlled. On amiodarone and metoprolol. DVT prophylaxis: SCDs. Lovenox on hold o/a of patient going for pleurex catheter placement today. Code Visit Inpatient E&M: 03746 Subs Hosp L2
[2019-06-19] MEDS: Amiodarone 200 MG Tablet 100 MG PO (09:07)
[2019-06-19] MEDS: Metoprolol Tartrate 50 MG Tablet PO ×2 (09:08→22:20)
--- NOTE | 2019-06-19 09:53 | PCM.PN.PUL ---
Subjective: The patient was seen and examined at the bedside this morning. Events from the last 24 hours have been reviewed. The patient is currently afebrile, hemodynamically stable and maintaining appropriate oxygen saturations on 2 L/min via nasal cannula. There are tentative plans for the patient to have a Pleurx catheter placed this afternoon. Objective: The patient's most recent lab work, culture data and imaging studies have all been personally reviewed. - Physical Exam Vitals/I&O's: Vital Signs Temp Pulse Resp BP Pulse Ox 98 F 81 20 H 119/85 H 94 06/19/19 02:58 06/19/19 09:08 06/19/19 07:55 06/19/19 02:58 06/19/19 07:55 Oxygen Flow Rate (L/min) 2 Oxygen Delivery Method Nasal Cannula Weight: 229 lb 15.074 oz Body Mass Index (BMI) 32.5 Intake and Output for Last 24 Hours 06/17/19 06/18/19 06/19/19 23:59 23:59 23:59 Intake Total 817.25 / 817.25 1460 / 1460 Output Total 875 / 875 1300 / 1650 725 / 725 Balance -57.75 / -57.75 160 / -190 -725 / -725 General: Alert, Cooperative, No apparent distress, - - Sitting in bedside recliner. HEENT: Atraumatic, PERRLA, Normocephalic Oral: No Gingival or Mucosal Lesions/ Ulcerations Neck: Supple, No Nodes, Trachea Midline Lungs: Diminished Cardiovascular: Normal S1, Normal S2, No murmurs, Irregular Rate Abdomen: Bowel Sounds Present, Soft, Non Tender, Obese Extremities: No clubbing, No cyanosis, Edema Skin: No breakdown Musculoskeletal: No Tenderness to Palpation of Joints or Extremities Lymphatic: No Cervical, Supraclavicular, or Inguinal Adenopathy Neurological: Cranial nerves II-XII grossly intact, Neuro grossly intact Psych/Mental Status: Normal Affect, Appropriate Labs (Last 48 Hours) 06/17/19 06/17/19 06/17/19 11:35 16:32 21:50 WBC RBC Hgb Hct MCV MCH MCHC RDW Std Deviation RDW Coeff of Jamie Plt Count MPV Immature Gran % (Auto) Neut % (Auto) Lymph % (Auto) Sully % (Auto) Eos % (Auto) Baso % (Auto) Absolute Neuts (auto) Absolute Lymphs (auto) Nucleated RBC % Differential Comment Sodium Potassium Chloride Carbon Dioxide Anion Gap BUN Creatinine Estim Creat Clear Calc Est GFR (MDRD) Af Amer Est GFR (MDRD) Non-Af BUN/Creatinine Ratio Glucose Calcium POC Glucose 167 H 246 H 196 H 06/18/19 06/18/19 06/18/19 05:00 05:00 06:34 WBC 6.0 RBC 3.66 L Hgb 11.4 L Hct 36.6 L MCV 100.0 H MCH 31.1 MCHC 31.1 L RDW Std Deviation 55.8 H RDW Coeff of Jamie 15.1 H Plt Count 97 L MPV 10.7 Immature Gran % (Auto) 1.800 H Neut % (Auto) 84.9 H Lymph % (Auto) 6.8 L Sully % (Auto) 6.5 Eos % (Auto) 0.0 Baso % (Auto) 0.0 Absolute Neuts (auto) 5.1 Absolute Lymphs (auto) 0.41 L Nucleated RBC % 0 Differential Comment Sodium 142 Potassium 3.9 Chloride 106 Carbon Dioxide 33.0 H Anion Gap 3 L BUN 29 H Creatinine 1.26 Estim Creat Clear Calc 52.99 Est GFR (MDRD) Af Amer 72 Est GFR (MDRD) Non-Af 60 BUN/Creatinine Ratio 23.0 H Glucose 160 H Calcium 7.9 L POC Glucose 139 H 06/18/19 06/18/19 06/18/19 12:01 16:52 21:31 WBC RBC Hgb Hct MCV MCH MCHC RDW Std Deviation RDW Coeff of Jamie Plt Count MPV Immature Gran % (Auto) Neut % (Auto) Lymph % (Auto) Sully % (Auto) Eos % (Auto) Baso % (Auto) Absolute Neuts (auto) Absolute Lymphs (auto) Nucleated RBC % Differential Comment Sodium Potassium Chloride Carbon Dioxide Anion Gap BUN Creatinine Estim Creat Clear Calc Est GFR (MDRD) Af Amer Est GFR (MDRD) Non-Af BUN/Creatinine Ratio Glucose Calcium POC Glucose 141 H 170 H 215 H 06/19/19 06/19/19 06/19/19 00:21 04:30 04:30 WBC 5.9 RBC 3.80 L Hgb 11.9 L Hct 37.5 L MCV 98.7 H MCH 31.3 MCHC 31.7 L RDW Std Deviation 53.8 H RDW Coeff of Jamie 14.6 Plt Count 102 L MPV 10.1 Immature Gran % (Auto) 2.900 H Neut % (Auto) 83.3 H Lymph % (Auto) 6.7 L Sully % (Auto) 6.9 Eos % (Auto) 0.0 Baso % (Auto) 0.2 Absolute Neuts (auto) 5.0 Absolute Lymphs (auto) 0.40 L Nucleated RBC % 0 Differential Comment SCANNED Sodium 142 Potassium 4.5 Chloride 105 Carbon Dioxide 34.0 H Anion Gap 3 L BUN 31 H Creatinine 1.15 Estim Creat Clear Calc 58.06 Est GFR (MDRD) Af Amer 80 Est GFR (MDRD) Non-Af 66 BUN/Creatinine Ratio 27.0 H Glucose 136 H Calcium 8.0 L POC Glucose 188 H 06/19/19 05:48 WBC RBC Hgb Hct MCV MCH MCHC RDW Std Deviation RDW Coeff of Jamie Plt Count MPV Immature Gran % (Auto) Neut % (Auto) Lymph % (Auto) Sully % (Auto) Eos % (Auto) Baso % (Auto) Absolute Neuts (auto) Absolute Lymphs (auto) Nucleated RBC % Differential Comment Sodium Potassium Chloride Carbon Dioxide Anion Gap BUN Creatinine Estim Creat Clear Calc Est GFR (MDRD) Af Amer Est GFR (MDRD) Non-Af BUN/Creatinine Ratio Glucose Calcium POC Glucose 140 H Microbiology 06/13/19 17:41 Blood Culture (Wb) #2 - Right Forearm Blood Culture - Final No growth in 5 days. 06/13/19 16:50 Blood Culture (Wb) - Central Line Blood Culture - Final No growth in 5 days. Clinical Impression(s) from Imaging Studies Chest X-Ray 06/13/19 16:22 IMPRESSION: Cardiomegaly with hyperexpansion of the left lung unchanged. Increased opacities at right base as described, representing atelectasis or early/developing pneumonia. No acute finding. Electronically Signed: Ezio Rincon MD at 16:41 EST , Service support , Chest CT 06/14/19 05:55 IMPRESSION: Right hilar and perihilar mass lesion is not significantly changed from the May study. Mediastinal and left hilar lymphadenopathy is not significantly changed. Right pleural effusion is not significantly changed. Chronic pleural and parenchymal changes in the left lung. Atherosclerosis. No new abnormalities are demonstrated. Electronically Signed: Rahat Pope MD at 6:53 EST , Service support , Current Medications Acetaminophen (Tylenol) 650 mg PO Q6H PRN PRN PRN Reason: Pain Score 1-3/Temp > 100.7 F Last Admin: 06/16/19 07:25 Dose: 650 mg Documented by: Albuterol Sulfate (Ventolin Aerosols) 2.5 mg INHALATION Q2H PRN PRN PRN Reason: SOB &/OR WHEEZING Albuterol/Ipratropium (Duoneb) 3 ml INHALATION Q4HWA.RT [facility] Last Admin: 06/19/19 07:55 Dose: 3 ml Documented by: Amiodarone HCl (Cordarone) 100 mg PO DAILY [facility] Last Admin: 06/19/19 09:07 Dose: 100 mg Documented by: Atorvastatin Calcium (Lipitor) 10 mg PO QHS [facility] Last Admin: 06/18/19 21:32 Dose: 10 mg Documented by: Glucagon () 1 mg IM .X1 PRN PRN Reason: Hypoglycemia Guaifenesin (Mucinex) 1,200 mg PO BID [facility] Last Admin: 06/19/19 08:23 Dose: Not Given Documented by: Sodium Chloride () 250 mls @ 15 mls/hr IV .[id number] PRN PRN Reason: Saline Flush Last Infusion: 06/17/19 08:30 Dose: Infused Documented by: Dextrose (Dextrose 10%-Water) 250 mls @ 999 mls/hr IV X1 PRN; Protocol PRN Reason: HYPOGLYCEMIA Insulin Human Lispro (Humalog Kwikpen (Bkc)) 0 unit SC ACHS [facility]; Protocol Last Admin: 06/19/19 06:57 Dose: Not Given Documented by: Metoprolol Tartrate (Lopressor (Beta Sukhwinder)) 50 mg PO BID [facility] Last Admin: 06/19/19 09:08 Dose: 50 mg Documented by: Multivitamins/Minerals (Multivitamin With Minerals) 1 tablet PO DAILY@0800 [facility] Last Admin: 06/19/19 08:23 Dose: Not Given Documented by: Nitroglycerin (Nitrostat) 0.4 mg SUBLINGUAL Q5M PRN PRN Reason: CARDIAC/CHEST PAIN Ondansetron HCl (Zofran) 4 mg IV Q8H PRN PRN PRN Reason: NAUSEA/VOMITING Last Admin: 06/19/19 00:27 Dose: 4 mg Documented by: Prednisone () 40 mg PO DAILY@0800 [facility] Last Admin: 06/19/19 08:23 Dose: Not Given Documented by: Sodium Chloride () 10 - 40 ml IV UD PRN PRN Reason: SALINE FLUSH Last Admin: 06/19/19 05:50 Dose: 30 ml Documented by: Medical Necessity - Tobacco Use Smoking Status: Former smoker Assessment/Plan All Active Problems (Last Reviewed 06/13/19 @ 15:18 by Janessa Guajardo NP-C) Community-acquired pneumonia (Acute) Acute and chronic respiratory failure with hypoxia (Acute) Bradycardia (Resolved) Chest pain (Resolved) RECOMMENDATIONS: 1. Pleurx catheter placement today. 2. Wean supplemental oxygen to maintain saturations at or above 90%. 3. Perform walking oximetry study prior to consideration for discharge home. 4. Continue bronchodilators. IMPRESSIONS: 1. Acute hypoxemic respiratory failure Although initially felt to be secondary to postobstructive pneumonia, the patient's respiratory failure is likely secondary to progressive pleural fluid accumulation secondary to his underlying malignancy. At the current time, the patient is awaiting Pleurx catheter placement. Oncology is planning for outpatient follow-up with the patient. Continue to wean supplemental oxygen as tolerated. Perform walking oximetry study prior to consideration for discharge home. 2. 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 Ayon, with what appears to be progression of his underlying lung malignancy. 3. History of coronary artery disease/paroxysmal atrial fibrillation/hyperlipidemia The patient's home aspirin and Plavix are on hold to facilitate Pleurx catheter placement. This note was generated with [employer] software. It may contain incorrect words, spelling, and punctuation that were not noted in checking the note before signing. Code Visit Inpatient E&M: 47905 Subs Hosp L2
--- NOTE | 2019-06-19 11:08 | NURSING ---
verbal report given to NEREYDA donato in ac
[2019-06-19 11:25] LABS: Bedside Glucose 111 mg/dL (70-110)
[2019-06-19] MEDS: Lactated Ringers 1,000 ML 100 ML IV (11:30)
[2019-06-19] MEDS: Cefazolin 2 GM in 0.9% Normal Saline 100 ML IV (11:36)
[2019-06-19] MEDS: Bupivacaine Mpf 0.5% 30 ML VIAL (12:00)
--- NOTE | 2019-06-19 12:50 | SUR.PHASEI ---
pt given breathing treatment in PACU by respiratory.
--- NOTE | 2019-06-19 13:08 | RAD_ITS ---
STUDY: X-RAY CHEST REASON FOR EXAM: Male, 73 years old. Right port placement. TECHNIQUE: Single AP portable view of the chest. COMPARISON: Comparison is made with prior study dated June 13, 2019. FINDINGS: A right-sided portacatheter is seen with the tip in the right atrium. EKG lead is seen. Elevation of the right hemidiaphragm. Stable increased markings at the lung bases with areas of confluence worse on the right side with small bilateral pleural effusions worse on the right side. Normal size heart. Normal mediastinum and tessa. Normal visualized pulmonary arteries. There is atherosclerotic tortuosity of the aortic arch and descending thoracic aorta. There are diffuse degenerative changes of the visualized thoracic spine. Normal visualized ribs, clavicles, and shoulders. There is no demonstrated abnormality of the visualized soft tissue structures of the upper abdomen. RAD/Chest 1 View (Portable) IMPRESSION: Stable examination. Bibasilar atelectasis and infiltration with blunting of both costophrenic angles. Electronically Signed: Miguel Chacon, at 13:28 EST , Service support ,
[2019-06-19 13:16] LABS: Bedside Glucose 109 mg/dL (70-110)
--- NOTE | 2019-06-19 13:46 | PCM.OPRPT ---
Problem List (1) Primary small cell malignant neoplasm of lung, stage 3 Status: Chronic Report of Operation Date of Procedure: 06/19/19 Pre-Operative Diagnosis: Malignant effusion on the right side Post-Operative Diagnosis: Same Surgery/Procedure Performed:: Right chest Pleurx catheter placement Description of Procedure: Patient was brought back to the operating room and MAC anesthesia was induced. Right chest was prepped and draped in usual sterile fashion. Ultrasound was used to find an intercostal space with fluid behind it. Next local anesthesia was injected in 2 spots. 2 small incisions were made over the proposed incision sites. Next a needle was used to enter the pleural cavity under ultrasound guidance. Guidewire was placed. The wire was removed and the catheter was tunneled from the lower incision to the upper incision leaving the cuff in the subcutaneous tissue. Next over the guidewire serial dilators were used as well as a peel-away sheath. The catheter was placed through the peel-away sheath into the chest and the peel-away sheath was removed. This was attached to suction. There was approximately 1 L of fluid removed in the OR. Next the skin superior skin incision was closed with an interrupted 3-0 Vicryl suture. The catheter was anchored in place using a 3-0 nylon suture. Bandages were attached and the patient was placed to 20 mm of suction. Patient was taken back in stable condition chest x-ray will be obtained. Grafts/Implants Used: PleurX catheter - Admit VTE Documentation VTE Mechan Device Prophylaxis: SCD's
[2019-06-19 16:55] LABS: Bedside Glucose 104 mg/dL (70-110)
[2019-06-19] MEDS: Atorvastatin Calcium 10 MG Tablet PO (22:20)
[2019-06-19] MEDS: guaiFENesin 1,200 MG Tablet 1200 MG PO (22:21)
[2019-06-19 22:31] LABS: Bedside Glucose 138 mg/dL (70-110)
--- NOTE | 2019-06-19 23:53 | CPS ---
FiO2 titrated from 30% - 35%; meet pt.'s oxygenation needs
[2019-06-20] VITALS (16 sets, daily range): BP systolic 113–118; BP diastolic 73–76; PULSE 68–141; RESP 12–28; TEMP 36.4–36.8; O2SAT 86–96
[2019-06-20] MEDS: Ipratropium/Albuterol Sulfate 3 ML AMPUL.NEB INHALATION ×4 (03:47→14:45)
[2019-06-20] MEDS: 0.9% Saline Lock 10 ML Syringe IV ×3 (05:05→15:56)
--- NOTE | 2019-06-20 06:33 | RAD_ITS ---
STUDY: X-RAY CHEST REASON FOR EXAM: Male, 73 years old. Right-sided chest tube. TECHNIQUE: AP and lateral views of the chest. COMPARISON: Comparison is made with prior examination dated June 19, 2019. FINDINGS: A right-sided chest tube is seen. This is unchanged. A right-sided portacatheter is seen with the tip in the right atrium. EKG electrodes are seen. Since prior study, there has been improved aeration of both lungs although residual changes persist worse on the right side. Residual blunting of both costophrenic angles. Normal size heart. Normal mediastinum and tessa. Normal visualized pulmonary arteries. There is atherosclerotic tortuosity of the aortic arch and descending thoracic aorta. There are diffuse degenerative changes of the visualized thoracic spine. Normal visualized ribs, clavicles, and shoulders. There is no demonstrated abnormality of the visualized soft tissue structures of the upper abdomen. RAD/Chest PA and Lateral IMPRESSION: Since prior study, there is been improvement in aeration. Further follow-up is recommended. Electronically Signed: Miguel Chacon, at 13:00 EST , Service support ,
[2019-06-20 06:35] LABS: Bedside Glucose 124 mg/dL (70-110)
[2019-06-20 07:30] LABS: Absolute Lymphocyte Count 1.24 X10^3/uL (0.83-4.51); Basophil# 0.04 X10^3/uL; Basophil% 0.6 % (0-1); Eosinophil# 0.29 X10^3/uL; Hematocrit 38.2 % (40-54); Hemoglobin 12.6 g/dL (13.0-16.5); Lymphocyte # 1.24 X10^3/ul (4.0); Lymphocyte % 17.2 % (19-41); Mean Corpuscular Hgb 30.5 pg (27.0-32.0); Mean Corpuscular Volume 92.5 fL (80-94); Mean Platelet Vol. 10.4 fl (6.2-12.0); NRBC Flagged by Analyzer 0 % (0-5); Neutrophil % 69.5 % (47-70); POSITIVE COUNT YES; RBC Distribution Width CV 14.5 % (11.6-14.6); RBC Distribution Width SD 48.3 fl (35.1-43.9); Red Blood Count 4.13 M/mm3 (4.6-6.2); White Blood Count 7.2 K/mm3 (4.4-11.0)
[2019-06-20 07:32] LABS: Differential Indicated SCAN CRITERIA MET
[2019-06-20 07:40] LABS: Platelet Count 133 K/mm3 (150-450)
[2019-06-20] MEDS: predniSONE 20 MG Tablet 40 MG PO (07:43)
[2019-06-20] MEDS: Multivitamins,Ther W-Minerals Tablet 1 TABLET PO (07:43)
[2019-06-20] MEDS: Amiodarone 200 MG Tablet 100 MG PO (07:43)
[2019-06-20] MEDS: Acetaminophen 325 MG Tablet 650 MG PO (07:43)
[2019-06-20] MEDS: Metoprolol Tartrate 50 MG Tablet PO (07:44)
[2019-06-20] MEDS: guaiFENesin 1,200 MG Tablet 1200 MG PO (07:44)
--- NOTE | 2019-06-20 07:53 | PN.SURG_ITS ---
Subjective: Patient reports his breathing is improving - Physical Exam Vitals/I&O's: Vital Signs Temp Pulse Resp BP Pulse Ox 98.3 F 68 22 H 118/73 94 06/20/19 03:40 06/20/19 07:44 06/20/19 03:47 06/20/19 03:40 06/20/19 05:03 Oxygen Flow Rate (L/min) 3 Oxygen Delivery Method Nasal Cannula Weight: 230 lb 6.129 oz Body Mass Index (BMI) 32.5 Intake and Output for Last 24 Hours 06/18/19 06/19/19 06/20/19 23:59 23:59 23:59 Intake Total 1460 / 1460 1800 / 1800 100 / 100 Output Total 1300 / 1650 3825 / 3825 220 / 220 Balance 160 / -190 -2025 / -2025 -120 / -120 General: Alert, Oriented x3 Neck: No JVD Cardiovascular: Regular rate, Regular Rhythm Abdomen: Soft, Non Tender, Non-Distended Microbiology Past 72 Hours 06/13/19 17:41 Blood Culture (Wb) #2 - Right Forearm Blood Culture - Final No growth in 5 days. 06/13/19 16:50 Blood Culture (Wb) - Central Line Blood Culture - Final No growth in 5 days. Laboratory Results 06/19/19 11:22: POC Glucose 111 H 06/19/19 12:47: POC Glucose 109 06/19/19 16:33: POC Glucose 104 06/19/19 22:19: POC Glucose 138 H 06/20/19 06:32: POC Glucose 124 H 06/20/19 07:06: WBC 7.2, RBC 4.13 L, Hgb 12.6 L, Hct 38.2 L, MCV 92.5 D, MCH 30.5, MCHC 33.0, RDW Std Deviation 48.3 H, RDW Coeff of Jamie 14.5, Plt Count 133 L, MPV 10.4, Immature Gran % (Auto) 1.700 H, Neut % (Auto) 69.5, Lymph % (Auto) 17.2 L, Rabun % (Auto) 7.0, Eos % (Auto) 4.0, Baso % (Auto) 0.6, Absolute Neuts (auto) 5.0, Absolute Lymphs (auto) 1.24, Nucleated RBC % 0 Current Medications Acetaminophen (Tylenol) 650 mg PO Q6H PRN PRN PRN Reason: Pain Score 1-3/Temp > 100.7 F Last Admin: 06/20/19 07:43 Dose: 650 mg Documented by: Albuterol Sulfate (Ventolin Aerosols) 2.5 mg INHALATION Q2H PRN PRN PRN Reason: SOB &/OR WHEEZING Albuterol/Ipratropium (Duoneb) 3 ml INHALATION Q4HWA.RT [facility] Last Admin: 06/20/19 07:34 Dose: 3 ml Documented by: Amiodarone HCl (Cordarone) 100 mg PO DAILY [facility] Last Admin: 06/20/19 07:43 Dose: 100 mg Documented by: Atorvastatin Calcium (Lipitor) 10 mg PO QHS [facility] Last Admin: 06/19/19 22:20 Dose: 10 mg Documented by: Glucagon () 1 mg IM .X1 PRN PRN Reason: Hypoglycemia Guaifenesin (Mucinex) 1,200 mg PO BID [facility] Last Admin: 06/20/19 07:44 Dose: 1,200 mg Documented by: Sodium Chloride () 250 mls @ 15 mls/hr IV .[id number] PRN PRN Reason: Saline Flush Last Infusion: 06/17/19 08:30 Dose: Infused Documented by: Dextrose (Dextrose 10%-Water) 250 mls @ 999 mls/hr IV X1 PRN; Protocol PRN Reason: HYPOGLYCEMIA Insulin Human Lispro (Humalog Kwikpen (Bkc)) 0 unit SC ACHS [facility]; Protocol Last Admin: 06/20/19 06:40 Dose: Not Given Documented by: Metoprolol Tartrate (Lopressor (Beta Sukhwinder)) 50 mg PO BID [facility] Last Admin: 06/20/19 07:44 Dose: 50 mg Documented by: Multivitamins/Minerals (Multivitamin With Minerals) 1 tablet PO DAILY@0800 [facility] Last Admin: 06/20/19 07:43 Dose: 1 tablet Documented by: Nitroglycerin (Nitrostat) 0.4 mg SUBLINGUAL Q5M PRN PRN Reason: CARDIAC/CHEST PAIN Ondansetron HCl (Zofran) 4 mg IV Q8H PRN PRN PRN Reason: NAUSEA/VOMITING Last Admin: 06/19/19 00:27 Dose: 4 mg Documented by: Prednisone () 40 mg PO DAILY@0800 [facility] Last Admin: 06/20/19 07:43 Dose: 40 mg Documented by: Sodium Chloride () 10 - 40 ml IV UD PRN PRN Reason: SALINE FLUSH Last Admin: 06/20/19 05:07 Dose: 20 ml Documented by: Medical Necessity - Tobacco Use Smoking Status: Former smoker Assessment/Plan All Active Problems (Last Reviewed 06/13/19 @ 15:18 by Janessa Guajardo NP-C) Community-acquired pneumonia (Acute) Acute and chronic respiratory failure with hypoxia (Acute) Bradycardia (Resolved) Chest pain (Resolved) 73-year-old male with metastatic lung cancer 1. The patient had Pleurx catheter placed in the right chest yesterday. Over 3 L have been removed from the right thorax. Chest x-ray from this morning is pending. My office will order canisters for him once we know his discharge date. He will follow-up with me for drain teaching. Tawanda Anthony MD Pager: [facility] [address] [place] [address], [address] [place] [address] Office:
--- NOTE | 2019-06-20 08:25 | PCM.PN.PUL ---
Subjective: The patient was seen and examined at the bedside this morning. Events from the last 24 hours have been reviewed. The patient is currently afebrile, hemodynamically stable and maintaining appropriate oxygen saturations on 3 L/min via nasal cannula. The patient did undergo successful Pleurx catheter placement yesterday. He does report subjective improvement in his shortness of breath upon insertion of the Pleurx catheter. Objective: The patient's most recent lab work, culture data and imaging studies have all been personally reviewed. - Physical Exam Vitals/I&O's: Vital Signs Temp Pulse Resp BP Pulse Ox 98.3 F 68 22 H 118/73 94 06/20/19 03:40 06/20/19 07:44 06/20/19 03:47 06/20/19 03:40 06/20/19 05:03 Oxygen Flow Rate (L/min) 3 Oxygen Delivery Method Nasal Cannula Weight: 230 lb 6.129 oz Body Mass Index (BMI) 32.5 Intake and Output for Last 24 Hours 06/18/19 06/19/19 06/20/19 23:59 23:59 23:59 Intake Total 1460 / 1460 1800 / 1800 100 / 100 Output Total 1300 / 1650 3825 / 3825 220 / 220 Balance 160 / -190 -2025 / -2025 -120 / -120 General: Alert, Cooperative, No apparent distress, - - Sitting in bedside recliner. HEENT: Atraumatic, PERRLA, Normocephalic Oral: No Gingival or Mucosal Lesions/ Ulcerations Neck: Supple, No Nodes, Trachea Midline Lungs: No rhonchi, No wheeze, No rales, Diminished, - - Pleurx catheter in place Cardiovascular: Normal S1, Normal S2, No murmurs, Irregular Rate Abdomen: Bowel Sounds Present, Soft, Non Tender, Obese Extremities: No clubbing, No cyanosis, Edema Skin: No breakdown Musculoskeletal: No Tenderness to Palpation of Joints or Extremities Lymphatic: No Cervical, Supraclavicular, or Inguinal Adenopathy Neurological: Cranial nerves II-XII grossly intact, Neuro grossly intact Psych/Mental Status: Normal Affect, Appropriate Labs (Last 48 Hours) 06/18/19 06/18/19 06/18/19 12:01 16:52 21:31 WBC RBC Hgb Hct MCV MCH MCHC RDW Std Deviation RDW Coeff of Jamie Plt Count MPV Immature Gran % (Auto) Neut % (Auto) Lymph % (Auto) Bland % (Auto) Eos % (Auto) Baso % (Auto) Absolute Neuts (auto) Absolute Lymphs (auto) Nucleated RBC % Differential Comment Sodium Potassium Chloride Carbon Dioxide Anion Gap BUN Creatinine Estim Creat Clear Calc Est GFR (MDRD) Af Amer Est GFR (MDRD) Non-Af BUN/Creatinine Ratio Glucose Calcium POC Glucose 141 H 170 H 215 H 06/19/19 06/19/19 06/19/19 00:21 04:30 04:30 WBC 5.9 RBC 3.80 L Hgb 11.9 L Hct 37.5 L MCV 98.7 H MCH 31.3 MCHC 31.7 L RDW Std Deviation 53.8 H RDW Coeff of Jamie 14.6 Plt Count 102 L MPV 10.1 Immature Gran % (Auto) 2.900 H Neut % (Auto) 83.3 H Lymph % (Auto) 6.7 L Bland % (Auto) 6.9 Eos % (Auto) 0.0 Baso % (Auto) 0.2 Absolute Neuts (auto) 5.0 Absolute Lymphs (auto) 0.40 L Nucleated RBC % 0 Differential Comment SCANNED Sodium 142 Potassium 4.5 Chloride 105 Carbon Dioxide 34.0 H Anion Gap 3 L BUN 31 H Creatinine 1.15 Estim Creat Clear Calc 58.06 Est GFR (MDRD) Af Amer 80 Est GFR (MDRD) Non-Af 66 BUN/Creatinine Ratio 27.0 H Glucose 136 H Calcium 8.0 L POC Glucose 188 H 06/19/19 06/19/19 06/19/19 05:48 11:22 12:47 WBC RBC Hgb Hct MCV MCH MCHC RDW Std Deviation RDW Coeff of Jamie Plt Count MPV Immature Gran % (Auto) Neut % (Auto) Lymph % (Auto) Bland % (Auto) Eos % (Auto) Baso % (Auto) Absolute Neuts (auto) Absolute Lymphs (auto) Nucleated RBC % Differential Comment Sodium Potassium Chloride Carbon Dioxide Anion Gap BUN Creatinine Estim Creat Clear Calc Est GFR (MDRD) Af Amer Est GFR (MDRD) Non-Af BUN/Creatinine Ratio Glucose Calcium POC Glucose 140 H 111 H 109 06/19/19 06/19/19 06/20/19 16:33 22:19 06:32 WBC RBC Hgb Hct MCV MCH MCHC RDW Std Deviation RDW Coeff of Jamie Plt Count MPV Immature Gran % (Auto) Neut % (Auto) Lymph % (Auto) Bland % (Auto) Eos % (Auto) Baso % (Auto) Absolute Neuts (auto) Absolute Lymphs (auto) Nucleated RBC % Differential Comment Sodium Potassium Chloride Carbon Dioxide Anion Gap BUN Creatinine Estim Creat Clear Calc Est GFR (MDRD) Af Amer Est GFR (MDRD) Non-Af BUN/Creatinine Ratio Glucose Calcium POC Glucose 104 138 H 124 H 06/20/19 07:06 WBC 7.2 RBC 4.13 L Hgb 12.6 L Hct 38.2 L MCV 92.5 D MCH 30.5 MCHC 33.0 RDW Std Deviation 48.3 H RDW Coeff of Jamie 14.5 Plt Count 133 L MPV 10.4 Immature Gran % (Auto) 1.700 H Neut % (Auto) 69.5 Lymph % (Auto) 17.2 L Bland % (Auto) 7.0 Eos % (Auto) 4.0 Baso % (Auto) 0.6 Absolute Neuts (auto) 5.0 Absolute Lymphs (auto) 1.24 Nucleated RBC % 0 Differential Comment Sodium Potassium Chloride Carbon Dioxide Anion Gap BUN Creatinine Estim Creat Clear Calc Est GFR (MDRD) Af Amer Est GFR (MDRD) Non-Af BUN/Creatinine Ratio Glucose Calcium POC Glucose Microbiology 06/13/19 17:41 Blood Culture (Wb) #2 - Right Forearm Blood Culture - Final No growth in 5 days. 06/13/19 16:50 Blood Culture (Wb) - Central Line Blood Culture - Final No growth in 5 days. Clinical Impression(s) from Imaging Studies Chest X-Ray 06/13/19 16:22 IMPRESSION: Cardiomegaly with hyperexpansion of the left lung unchanged. Increased opacities at right base as described, representing atelectasis or early/developing pneumonia. No acute finding. Electronically Signed: Ezio Rincon MD at 16:41 EST , Service support , Chest CT 06/14/19 05:55 IMPRESSION: Right hilar and perihilar mass lesion is not significantly changed from the May study. Mediastinal and left hilar lymphadenopathy is not significantly changed. Right pleural effusion is not significantly changed. Chronic pleural and parenchymal changes in the left lung. Atherosclerosis. No new abnormalities are demonstrated. Electronically Signed: Rahat Pope MD at 6:53 EST , Service support , Chest X-Ray 06/19/19 13:08 IMPRESSION: Stable examination. Bibasilar atelectasis and infiltration with blunting of both costophrenic angles. Electronically Signed: Miguel Chacon, at 13:28 EST , Service support , Current Medications Acetaminophen (Tylenol) 650 mg PO Q6H PRN PRN PRN Reason: Pain Score 1-3/Temp > 100.7 F Last Admin: 06/20/19 07:43 Dose: 650 mg Documented by: Albuterol Sulfate (Ventolin Aerosols) 2.5 mg INHALATION Q2H PRN PRN PRN Reason: SOB &/OR WHEEZING Albuterol/Ipratropium (Duoneb) 3 ml INHALATION Q4HWA.RT [facility] Last Admin: 06/20/19 07:34 Dose: 3 ml Documented by: Amiodarone HCl (Cordarone) 100 mg PO DAILY [facility] Last Admin: 06/20/19 07:43 Dose: 100 mg Documented by: Atorvastatin Calcium (Lipitor) 10 mg PO QHS [facility] Last Admin: 06/19/19 22:20 Dose: 10 mg Documented by: Glucagon () 1 mg IM .X1 PRN PRN Reason: Hypoglycemia Guaifenesin (Mucinex) 1,200 mg PO BID [facility] Last Admin: 06/20/19 07:44 Dose: 1,200 mg Documented by: Sodium Chloride () 250 mls @ 15 mls/hr IV .[id number] PRN PRN Reason: Saline Flush Last Infusion: 06/17/19 08:30 Dose: Infused Documented by: Dextrose (Dextrose 10%-Water) 250 mls @ 999 mls/hr IV X1 PRN; Protocol PRN Reason: HYPOGLYCEMIA Insulin Human Lispro (Humalog Kwikpen (Bkc)) 0 unit SC ACHS [facility]; Protocol Last Admin: 06/20/19 06:40 Dose: Not Given Documented by: Metoprolol Tartrate (Lopressor (Beta Sukhwinder)) 50 mg PO BID [facility] Last Admin: 06/20/19 07:44 Dose: 50 mg Documented by: Multivitamins/Minerals (Multivitamin With Minerals) 1 tablet PO DAILY@0800 [facility] Last Admin: 06/20/19 07:43 Dose: 1 tablet Documented by: Nitroglycerin (Nitrostat) 0.4 mg SUBLINGUAL Q5M PRN PRN Reason: CARDIAC/CHEST PAIN Ondansetron HCl (Zofran) 4 mg IV Q8H PRN PRN PRN Reason: NAUSEA/VOMITING Last Admin: 06/19/19 00:27 Dose: 4 mg Documented by: Prednisone () 40 mg PO DAILY@0800 [facility] Last Admin: 06/20/19 07:43 Dose: 40 mg Documented by: Sodium Chloride () 10 - 40 ml IV UD PRN PRN Reason: SALINE FLUSH Last Admin: 06/20/19 05:07 Dose: 20 ml Documented by: Medical Necessity - Tobacco Use Smoking Status: Former smoker Assessment/Plan All Active Problems (Last Reviewed 06/13/19 @ 15:18 by Janessa Guajardo NP-C) Community-acquired pneumonia (Acute) Acute and chronic respiratory failure with hypoxia (Acute) Bradycardia (Resolved) Chest pain (Resolved) RECOMMENDATIONS: 1. Wean supplemental oxygen to maintain saturations at or above 90%. 2. Perform walking oximetry study prior to consideration for discharge home. 3. Continue bronchodilators. 4. Once Pleurx catheter supplies have been delivered and education provided, the patient can be discharged home from my perspective. 5. Please arrange outpatient pulmonary follow-up within 2 weeks of discharge. IMPRESSIONS: 1. Acute hypoxemic respiratory failure Although initially felt to be secondary to postobstructive pneumonia, the patient's respiratory failure is likely secondary to progressive pleural fluid accumulation secondary to his underlying malignancy. At the current time, the patient has underwent successful Pleurx catheter placement. Oncology is planning for outpatient follow-up with the patient. Continue to wean supplemental oxygen as tolerated. Perform walking oximetry study prior to consideration for discharge home. 2. 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 Ayon, with what appears to be progression of his underlying lung malignancy. 3. History of coronary artery disease/paroxysmal atrial fibrillation/hyperlipidemia The patient's home aspirin and Plavix can be resumed at this time. This note was generated with [employer] dictation software. It may contain incorrect words, spelling, and punctuation that were not noted in checking the note before signing. Code Visit Inpatient E&M: 69909 Subs Hosp L2
--- NOTE | 2019-06-20 09:57 | CASEMGMT ---
Per Dr. Anthony, pt will be discharged home with a canister and pleurx clamped off and then f/u in his office in 2 days for further supplies and teaching at that time. Estella DAWN CM
[2019-06-20] MEDS: Insulin Lispro 100 UNIT/ML INSULN.PEN SC (11:25)
[2019-06-20 11:50] LABS: Bedside Glucose 195 mg/dL (70-110)
--- NOTE | 2019-06-20 13:05 | CASEMGMT ---
Addendum entered by Sidra Jon 06/20/19 14:09: This RN CM back to room and pt/family would like [facility] at this time. Order placed for SN, PT/OT at this time. Message left with Kelley at [facility] regarding same at this time. Pt also qualifies for 4 liters with ambulation at this time and is good on his 2 liters at rest. New order faxed to [facility] at this time. Call to [facility] to notify of increased order for ambulation, voice understanding. [place]en RN CM Original Note: Per Dr. Sebastian, pt/ would like to speak this RN CM regarding therapy at discharge. This RN CM to room and immediately starts complaining to this RN CM about the fact that she does not believe that pt should be discharged. states she is concerned about the op site and how to take care of it. This RN CM advised them that Dr. Anthony's office would instruct them on all when they f/u on per his request. Pt/family aware that pleurx cath is normally OP procedure, voice understanding. shows this RN CM the IMM and asks if they can appeal his discharge and this RN CM informed them that pt has MMO as primary and MCR as secondary and that this RN CM would have to check on the appeal process with MCR as secondary, pt/family voice understanding. Pt/family are interested in [facility] at this time and this RN CM to provide an in-network list of HHC agencies to pt/family at this time. Daughter does ask about whether [facility] senior care would be helpful and this RN CM advised her that this RN CM would check with [facility] and see if they normally assist with pleurx, voices understanding. This RN CM once again advised that Gabrielle's office would do thorough teaching and daughter voices understanding. Daughter states 'I would normally be able to help, but I won't be here.' Per Elias, Director Care Management and CD[facility], pt cannot appeal discharge through MCR because MMO is his primary. This RN CM back to room to inform pt/family at this time. Pt's is not at bedside at this time as she ran home to get pt clothes and his oxygen tank. Daughter/pt voice understanding about inability to appeal discharge and daughter states I will tell her(referencing her mother). Pt/daughter are very pleasant and voice no further questions/concerns/needs at this time. This RN CM will f/u a little later with pt/family to see if they decided on [facility] agency at that time and to update on senior care assist with pleurx. Estella DAWN CM
--- NOTE | 2019-06-20 14:46 | DCINST_ITS ---
- Discharge Diagnoses Current Active Problems: Current Active and Chronic Problems (Last Reviewed 06/13/19 @ 15:18 by CLARISSA Pedroza) Pleural effusion (Chronic) You will use the following diet at home:: Cardiac Your food should be the consistency of: Regular Your liquids should be the consistency of: Regular/Thin Discharge Activity: Return to Normal Activity Weight Bearing Status: Weight bearing as tolerated Call your doctor if your incision/area has: Continuous Slow Oozing, Increased Pain/ Swelling, Increased Redness, Foul Smelling Discharge Call your doctor if you observe: Fever of 101 or Higher, Shortness of breath, Dizziness, Fainting spells, Swelling in the ankles, Chest pain Instructions: Pleural Effusion, Percutaneous Diagnosis of Chest, Lung Problems Additional Instructions: please follow up with Dr Anthony in his office in 2 day's time for education about Pleurx catheter. Follow up with Dr Ayon. Use 3-4L of oxygen for shortness of breath as needed. Please do not take lasix if you are feeling lightheaded or dizzy, or blood pressure is low (systolic is less than 100) Allergies/Adverse Reactions: Allergies No Known Allergies Allergy (Verified 06/13/19 19:52) Medications to take at Discharge Multivit-Min/FA/Lycopen/Lutein [Centrum Silver Tablet] 1 ea PO DAILY 10/14/16 aspirin 81 mg tablet,delayed release 81 mg PO DAILY 12/19/17 ascorbic acid (vitamin C) 500 mg capsule 500 mg PO DAILY cap 12/20/17 albuterol sulfate 90 mcg/actuation aerosol inhaler 1 - 2 puff INHALATION Q4H PRN PRN #1 device 02/21/18 cholecalciferol (vitamin D3) 5,000 unit capsule 5,000 unit PO DAILY 06/21/18 clopidogrel 75 mg tablet 75 mg PO DAILY #90 tab 10/04/18 metoprolol tartrate 50 mg tablet 50 mg PO BID #180 tab 03/29/19 nitroglycerin 0.4 mg sublingual tablet 0.4 mg SUBLINGUAL PRN PRN #25 tab 04/07/19 Amiodarone HCl [Cordarone] 100 mg PO DAILY tab 05/29/19 Ipratropium/Albuterol Sulfate [Duoneb] 3 ml INHALATION Q6HWA.RT #1 ampul.neb 05/29/19 furosemide 40 mg tablet 40 mg PO DAILY #30 tab 06/12/19 simvastatin 20 mg tablet 20 mg PO QHS #90 tab 06/19/19 Primary Care Physician: Rogelio Green DO [Primary Care Provider] - Test Results: Test results from this visit will be discussed in further detail at your follow- up appointment, if applicable. Please Follow Up With: Rogelio Green DO When: one week Please Follow Up With: Jayson Ayon MD When: 1-2 weeks Please Follow Up With: David Brady MD When: 1-2 weeks Please Follow Up With: Tawanda Anthony MD When: 2 days Please Follow Up With: Jaguar Dos Santos DO When: 1-2 weeks Proposed Discharge Date: 06/20/19
--- NOTE | 2019-06-20 14:49 | DS.PCM_ITS ---
Discharge Date and Diagnosis Date of Admission: 06/13/19 Date of Discharge: 06/20/19 - Primary Discharge Diagnosis pleural effusion acute on chronic hypoxic respiratory failure - Secondary Discharge Diagnosis Chronic Problems (Last Reviewed 06/13/19 @ 15:18 by ESTER PedrozaC) Pleural effusion (Chronic) PND (post-nasal drip) (Chronic) GERD (gastroesophageal reflux disease) (Chronic) History of DVT (deep vein thrombosis) (Chronic) H/O percutaneous transluminal coronary angioplasty (Chronic) PTCA/stent of the mid LAD, prox 1st diag, prox RCA 08/13/10; PTCA/BETO of the Ostial/Prox 1st diag 12/15/16 Hx of appendectomy (Chronic) Thrombocytopenia (Chronic) Anemia (Chronic) Pancytopenia (Chronic) Right upper lobe pulmonary nodule (Chronic) Non-small cell carcinoma of left lung, stage 3 (Chronic) Paroxysmal atrial fibrillation (Chronic) Atherosclerotic heart disease of [place] coronary artery without angina pectoris (Chronic) PTCA/stent of the mid LAD, prox 1st diag, prox RCA 08/13/10; PTCA/BETO of the Ostial/Prox 1st diag 12/15/16 Long-term use of high-risk medication (Chronic) Primary small cell malignant neoplasm of lung, stage 3 (Chronic) Nocturnal hypoxia (Chronic) Radiation esophagitis (Chronic) HLD (hyperlipidemia) (Chronic) Small cell lung cancer (Chronic) History of coronary artery stent placement (Chronic) PTCA/stent of the mid LAD, prox 1st diag, prox RCA 08/13/10; PTCA/BETO of the Ostial/Prox 1st diag 12/15/16 Obesity (BMI 30-39.9) (Chronic) Smoking addiction (Chronic) COPD (chronic obstructive pulmonary disease) (Chronic) HTN (hypertension) (Chronic) Hospital Course and Treatment Imaging Results: 06/20/19 06:33 Chest PA and Lateral [RAD] Routine pulmonology- Dr Dos Santos general surgery- Dr Anthony oncology- Dr Ayon Operations: None Procedures: - - Pleurx catheter placement Summary of Care Provided: The patient is a 73 year old M with an extensive past medical history as listed which includes both small and non-small cell lung cancer. He was admitted through the ED on 06/13/2019 with a complaint of worsening shortness of breath. 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 He had recently been discharged on 05/29/2019 after being treated for pneumonia. He was also found to have pleural effusion at that time and underwent thoracentesis. stated that he had received prednisone and antibiotic treatment a few days prior to admission but symptoms had worsened. He had also not been able to lie flat at home due to worsening shortness of breath. He however denied any fever chills or productive cough. Was in his elevator attendant office he was found to have low blood pressure, and was tachycardic and hypoxic despite supplemental oxygen being given. He was therefore brought to the ED and was diagnosed with acute on chronic hypoxic respiratory failure which was thought to be multifactorial and due to progression of metastatic lung cancer with pleural effusion as well as health associated pneumonia and COPD exacerbation. Patient was started on BiPAP in the ED. Pulmonology was consulted and he was hydrated with IV fluids per sepsis protocol. He was started on breathing treatments and IV steroids. Also started on antibiotics. Antibiotics were subsequently discontinued as there was no clear evidence of infection. Plan was to initially diurese him to see if this would help with pleural effusion. However diuresis was stopped on account of worsening renal function. Pulmonology was consulted. Decision was for patient to have Pleurx catheter placement on account of likelihood of reaccumulation of pleural effusion. Aspirin and Plavix were held on account of him having the Pleurx catheter placed. Patient had Pleurx catheter placement on 06/19/2019 and tolerated procedure well. Patient remained stable afterwards. Patient was on 2 L of oxygen at home but was requiring up to 3 to 4 L of oxygen in the hospital. Saturation dropped to 86% on 2 L of oxygen and increased to 91% on 4 L of oxygen with ambulation. He therefore qualified for 4 L of oxygen at home. Decision was made to discharge patient home on 06/20/2019 with home health care and he was to follow-up with Dr. waldron in his office in 2 days time for instructions about care of Pleurx catheter. Pulmonology was also on board with patient being discharged and stated the patient did not need BiPAP at home. Patient's however requested a meeting with hospitalist on 06/20/2019 because she was very upset and did not think patient was ready to go home. Hospitalist met with patient's and daughter as well as patient's nurse in patient's room. and daughter had numerous concerns, which were mainly about the care of the Pleurx catheter at home, with the patient would need BiPAP at home, with that he would need increased oxygen levels at home and whether he could restart his aspirin and Plavix. and daughter were counseled that as per the norm according to Dr. Anthony, patient would be discharged home and to follow-up with Dr. Anthony in 2 days time for education about Pleurx catheter management. All the supplies for the Pleurx catheter would be given to patient by Dr. Anthony's office. Appointment would also made for patient with Dr Anthony's office before he would be discharged; they also advised that patient would not need to be on BiPAP at home and he qualify for 4 L of oxygen which he would be on. Patient could also start aspirin and Plavix on day after discharge. was very angry during the conversation and was very hostile. She kept saying she did not think patient was ready to go home. When asked the reason why she thought he was not ready to go home, could not state a precise reason and kept on saying that he needed more therapy. When hospitalist stated that patient had no acute ongoing medical needs and so could not be kept in the hospital only for physical therapy, stated I did not say you should keep him in the hospital just for physical therapy. Despite being asked several times, she could not state exactly what the reason was for him to stay in the hospital and stated that the concern she had were all with respect to the questions that she had which had been answered about the care of the Pleurx catheter, patient needing BiPAP at home, when he could restart aspirin and Plavix and his oxygen needs at home. She kept interrupting medical team whilst they were talking and at a point walked out of the room because she did not want to hear what medical team had to say. Patient's daughter who states she is a nurse was very cordial and understanding and was on board with the plan. stated that she was not sure whether patient could go home with physical therapy as she had not yet decided. was counseled that therapy had recommended that patient could go home with home therapy and if she refused that then the next option would be for placement. stated that she wanted to speak to the case worker who was responsible for Medicare. Per subsequent discussion with case worker, had wanted to challenge patient's discharge. However since his primary insurance was a commercial one, she could not challenge the discharge. and daughter requested that patient be seen by oncologist because they had not seen the oncologist during admission. Even though they were informed that Dr. Ayon the oncologist had seen the patient during admission and agreed with patient having the Pleurx catheter placement and he would follow-up with the patient on out patient basis, they insisted that they wanted to talk to the oncology team again. Dr. Ayon was informed and he spoke came and spoke to the family about the medical plan. It does appear that patient and family are not cognizant of how advanced his cancer is and the likelihood that the pleural effusion is malignant considering that it reaccumulated so quickly. They were informed that the previous thoracentesis showed that the effusion was transudate, which is atypical of malignant effusions, had atypical cells. However considering the rate of reaccumulation of fluid in such a short time, it was very likely that it was a malignant pleural effusion. was not happy about this news and did not seem receptive. Patient was very quiet during the discussion and seems to defer to his to make all the decisions and so he did not really partake in the decision making process. After talking to Dr. Ayon the oncologist, patient's was finally on board with patient going home with home therapy. Patient was discharged home on 06/20/2019 with home health care. He is to follow-up with his primary care doctor, pulmonology, oncology and general surgery. Patient seen and examined prior to discharge. He has no complaints and felt well. Review of systems is otherwise negative. Shortness of breath has improved. Review of systems is otherwise negative. Labs and vitals reviewed. Medication reviewed and reconciled. o/e: Vital Signs Height 5 ft 9 in Weight: 230 lb 6.129 oz Weight in Pounds 230.4 lbs BMI 28.1 Pulse Ox [AMBULATING on Room 86 Air] Pulse Ox [AMBULATION with 91 Oxygen] Pulse Ox [At REST on Room Air] 92 Pulse Ox 94 Temperature 98.0 F Pulse Rate 110 Respiratory Rate 20 Blood Pressure 113/76 Blood Pressure Position Sitting [] General: Alert, Oriented x3, Cooperative, No apparent distress HEENT: Atraumatic, PERRLA, EOMI, Normocephalic Oral: Moist Mucosa Neck: Supple, No JVD, Negative Carotid Bruits Lungs: - - breath sounds in right mid and lower lung bass[place] have improved moderately. on 3L of oxygen. Right Pleurx catheter in place, attached to suction drain. Cardiovascular: Regular rate, Regular Rhythm, Normal S1, Normal S2, No murmurs Abdomen: Bowel Sounds Present, Soft, Non Tender, Non-Distended Extremities: No clubbing, No cyanosis, No edema, Capillary Refill Less than 3 Seconds Skin: No rashes, No breakdown Musculoskeletal: No Tenderness to Palpation of Joints or Extremities Lymphatic: No Cervical, Supraclavicular, or Inguinal Adenopathy Neurological: Cranial nerves II-XII grossly intact, Neuro grossly intact, Motor Exam 5/5 strength throughout Psych/Mental Status: Normal Affect, Appropriate, Alert and oriented to time, place, person, mood and affect Plan as above. Patient to be discharged home with home health care and home therapy. - Physical Exam Vitals/I&O's: Vital Signs Temp Pulse Resp BP Pulse Ox 97.6 F L 79 17 115/75 92 06/20/19 09:05 06/20/19 11:35 06/20/19 11:35 06/20/19 09:05 06/20/19 13:57 Oxygen Flow Rate (L/min) [ 2 AMBULATING on Room Air] Oxygen Flow Rate (L/min) [ 4 AMBULATION with Oxygen] Oxygen Flow Rate (L/min) [At 2 REST on Room Air] Oxygen Flow Rate (L/min) 4 Oxygen Delivery Method Nasal Cannula Weight: 230 lb 6.129 oz Body Mass Index (BMI) 32.5 Intake and Output for Last 24 Hours 06/18/19 06/19/19 06/20/19 23:59 23:59 23:59 Intake Total 1460 / 1460 1800 / 1800 350 / 350 Output Total 1300 / 1650 3825 / 3825 570 / 570 Balance 160 / -190 -2025 / -2025 -220 / -220 Microbiology Past 72 Hours 06/13/19 17:41 Blood Culture (Wb) #2 - Right Forearm Blood Culture - Final No growth in 5 days. 06/13/19 16:50 Blood Culture (Wb) - Central Line Blood Culture - Final No growth in 5 days. Laboratory Results 06/19/19 16:33: POC Glucose 104 06/19/19 22:19: POC Glucose 138 H 06/20/19 06:32: POC Glucose 124 H 06/20/19 07:06: WBC 7.2, RBC 4.13 L, Hgb 12.6 L, Hct 38.2 L, MCV 92.5 D, MCH 30.5, MCHC 33.0, RDW Std Deviation 48.3 H, RDW Coeff of Jamie 14.5, Plt Count 133 L, MPV 10.4, Immature Gran % (Auto) 1.700 H, Neut % (Auto) 69.5, Lymph % (Auto) 17.2 L, [place] % (Auto) 7.0, Eos % (Auto) 4.0, Baso % (Auto) 0.6, Absolute Neuts ( auto) 5.0, Absolute Lymphs (auto) 1.24, Nucleated RBC % 0 06/20/19 11:24: POC Glucose 195 H Current Medications Acetaminophen (Tylenol) 650 mg PO Q6H PRN PRN PRN Reason: Pain Score 1-3/Temp > 100.7 F Last Admin: 06/20/19 07:43 Dose: 650 mg Documented by: Albuterol Sulfate (Ventolin Aerosols) 2.5 mg INHALATION Q2H PRN PRN PRN Reason: SOB &/OR WHEEZING Albuterol/Ipratropium (Duoneb) 3 ml INHALATION Q4HWA.RT [facility] Last Admin: 06/20/19 14:45 Dose: 3 ml Documented by: Amiodarone HCl (Cordarone) 100 mg PO DAILY [facility] Last Admin: 06/20/19 07:43 Dose: 100 mg Documented by: Atorvastatin Calcium (Lipitor) 10 mg PO QHS [facility] Last Admin: 06/19/19 22:20 Dose: 10 mg Documented by: Glucagon () 1 mg IM .X1 PRN PRN Reason: Hypoglycemia Guaifenesin (Mucinex) 1,200 mg PO BID [facility] Last Admin: 06/20/19 07:44 Dose: 1,200 mg Documented by: Sodium Chloride () 250 mls @ 15 mls/hr IV .[id number] PRN PRN Reason: Saline Flush Last Infusion: 06/17/19 08:30 Dose: Infused Documented by: Dextrose (Dextrose 10%-Water) 250 mls @ 999 mls/hr IV X1 PRN; Protocol PRN Reason: HYPOGLYCEMIA Insulin Human Lispro (Humalog Kwikpen (Bkc)) 0 unit SC ACHS [facility]; Protocol Last Admin: 06/20/19 11:25 Dose: 1 units Documented by: Metoprolol Tartrate (Lopressor (Beta Sukhwinder)) 50 mg PO BID [facility] Last Admin: 06/20/19 07:44 Dose: 50 mg Documented by: Multivitamins/Minerals (Multivitamin With Minerals) 1 tablet PO DAILY@0800 [facility] Last Admin: 06/20/19 07:43 Dose: 1 tablet Documented by: Nitroglycerin (Nitrostat) 0.4 mg SUBLINGUAL Q5M PRN PRN Reason: CARDIAC/CHEST PAIN Ondansetron HCl (Zofran) 4 mg IV Q8H PRN PRN PRN Reason: NAUSEA/VOMITING Last Admin: 06/19/19 00:27 Dose: 4 mg Documented by: Prednisone () 40 mg PO DAILY@0800 [facility] Last Admin: 06/20/19 07:43 Dose: 40 mg Documented by: Sodium Chloride () 10 - 40 ml IV UD PRN PRN Reason: SALINE FLUSH Last Admin: 06/20/19 05:07 Dose: 20 ml Documented by: Discharge Diet: Low fat/ Low Cholesterol Discharge Activity: Return to Normal Activity Weight Bearing Status: Weight bearing as tolerated Call your doctor if your incision/area has: Continuous Slow Oozing, Increased Pain/ Swelling, Increased Redness, Foul Smelling Discharge Call your doctor if you observe: Fever of 101 or Higher, Shortness of breath, Dizziness, Fainting spells, Swelling in the ankles, Chest pain Home Medications: Medications to take at Discharge Multivit-Min/FA/Lycopen/Lutein [Centrum Silver Tablet] 1 ea PO DAILY 10/14/16 aspirin 81 mg tablet,delayed release 81 mg PO DAILY 12/19/17 ascorbic acid (vitamin C) 500 mg capsule 500 mg PO DAILY cap 12/20/17 albuterol sulfate 90 mcg/actuation aerosol inhaler 1 - 2 puff INHALATION Q4H PRN PRN #1 device 02/21/18 cholecalciferol (vitamin D3) 5,000 unit capsule 5,000 unit PO DAILY 06/21/18 clopidogrel 75 mg tablet 75 mg PO DAILY #90 tab 10/04/18 metoprolol tartrate 50 mg tablet 50 mg PO BID #180 tab 03/29/19 nitroglycerin 0.4 mg sublingual tablet 0.4 mg SUBLINGUAL PRN PRN #25 tab 1 Amiodarone HCl [Cordarone] 100 mg PO DAILY tab 05/29/19 Ipratropium/Albuterol Sulfate [Duoneb] 3 ml INHALATION Q6HWA.RT #1 ampul.neb 05/29/19 furosemide 40 mg tablet 40 mg PO DAILY #30 tab 06/12/19 simvastatin 20 mg tablet 20 mg PO QHS #90 tab 06/19/19 Primary Care Physician: Rogelio Green DO [Primary Care Provider] - Please Follow Up With: Rogelio Green DO When: one week Please Follow Up With: Jayson Ayon MD When: 1-2 weeks Please Follow Up With: David Brady MD When: 1-2 weeks Please Follow Up With: Tawanda Anthony MD When: 2 days Please Follow Up With: Jaguar Dos Santos DO When: 1-2 weeks Patient Instructions: Percutaneous Diagnosis of Chest, Lung Problems, Pleural Effusion Disposition: Home with Home Health Minutes spent on discharge:: 50 Patient Condition:: Stable Medical Necessity - Tobacco Use Smoking Status: Former smoker Meaningful Use Info Meaningful Use Diagnoses (Choose all that apply): None applicable Code Visit Inpatient E&M: 97918 Disch Hosp
--- NOTE | 2019-06-20 15:54 | PHA.DC.MR ---
Pharmacy Service has performed discharge medication reconciliation for this patient. No new medications at time of discharge. Medications reviewed are previously reported home medications. The patient's discharge medication list was reviewed for discrepancies and discrepancies were resolved. Home Medications Multivit-Min/FA/Lycopen/Lutein [Centrum Silver Tablet] 1 ea PO DAILY 10/14/16 aspirin 81 mg tablet,delayed release 81 mg PO DAILY 12/19/17 ascorbic acid (vitamin C) 500 mg capsule 500 mg PO DAILY cap 12/20/17 albuterol sulfate 90 mcg/actuation aerosol inhaler 1 - 2 puff INHALATION Q4H PRN PRN #1 device 02/21/18 cholecalciferol (vitamin D3) 5,000 unit capsule 5,000 unit PO DAILY 06/21/18 clopidogrel 75 mg tablet 75 mg PO DAILY #90 tab 10/04/18 metoprolol tartrate 50 mg tablet 50 mg PO BID #180 tab 03/29/19 nitroglycerin 0.4 mg sublingual tablet 0.4 mg SUBLINGUAL PRN PRN #25 tab 04/07/19 Amiodarone HCl [Cordarone] 100 mg PO DAILY tab 05/29/19 Ipratropium/Albuterol Sulfate [Duoneb] 3 ml INHALATION Q6HWA.RT #1 ampul.neb 05/29/19 furosemide 40 mg tablet 40 mg PO DAILY #30 tab 06/12/19 simvastatin 20 mg tablet 20 mg PO QHS #90 tab 06/19/19
== END 2019-06-20 15:56 | disposition home or self-care (01) | DRG 180 ==
LOC: ED 16:27 → PCU 19:14
PROVIDERS: Nurse Practitioner Family; Surgery; Admitting Provider Internal Medicine; Emergency Provider Emergency Medicine; Family Provider Family Medicine; PCP Family Medicine; Referring Provider Internal Medicine; Visit Provider Student in an Organized Health Care Education/Training Program
PROC: 0W9930Z Drainage of Right Pleural Cavity with Drainage Device, Percutaneous Approach (ICD-10-PCS; CPT 32550; principal; 2019-06-19 15:05)
DX: C34.91 Malignant neoplasm of unspecified part of right bronchus or lung (principal); J96.21 Acute and chronic respiratory failure with hypoxia; J44.1 Chronic obstructive pulmonary disease with (acute) exacerbation; C79.9 Secondary malignant neoplasm of unspecified site; J91.0 Malignant pleural effusion; C34.92 Malignant neoplasm of unspecified part of left bronchus or lung; Y95 Nosocomial condition; I48.0 Paroxysmal atrial fibrillation; Z95.5 Presence of coronary angioplasty implant and graft; I25.10 Atherosclerotic heart disease of native coronary artery without angina pectoris; Z79.82 Long term (current) use of aspirin; Z79.02 Long term (current) use of antithrombotics/antiplatelets; Z86.718 Personal history of other venous thrombosis and embolism; E78.5 Hyperlipidemia, unspecified; Z87.891 Personal history of nicotine dependence
CPT/HCPCS: 36415; 36591; 36600; 71045; 71046; 71260; 80048; 80053; 80202; 82803; 82962; 83605; 83880; 84484; 85025; 85027; 87040; 87070; 87205; 87633; 93005; 94002; 94003; 94640; 94667; 94668; 97110; 97116; 97162; 97166; 97530; 97802; 97803; 99285; J7030; J7040; J7050; J7120; Q9967; A4216; C1729; J0295; J1940; J2405

== ENCOUNTER 2019-07-01 11:34 | Inpatient (IN) | payer MEDICARE, SELFPAY ==
[2016-12-24 11:34] VITALS: BMI 28.1
[2019-06-22 15:38] VITALS: BMI 30.7
[2019-07-01] VITALS (30 sets, daily range): BP systolic 84–157; BP diastolic 57–100; PULSE 80–149; RESP 12–38; TEMP 35.9–37.2; O2SAT 81–96; BMI 29.7; BMI 30.3; BMI 30.2
--- NOTE | 2019-07-01 | FLU_PTH ---
PATIENT: ALEXANDRA WALTER Jr. LOC: [facility] U#:[id number] AGE/SX: 73/M ROOM: ICU03 RE07/01/[address]: Dr. Alirio Das MD : 1945 BED: 1 DIS: 07/03/2019 SPEC #: [id number] RECD: 07/01/19 16:24 STATUS: INEZ REEduar #: [id number] ABEBA: 07/01/19 00:[address]: Tawanda Anthony DEPT: CYTOLOGY RECD BY: Froilan Castañeda ENTERED: 07/03/19 10:01 SP TYPE: Fluid OTHR DR: MD Dr. Knu Ventura MD Dr. Charles Milligan, DO Dr. Prakash Chand, MD Tyra Schlabach, NP-Louie Tissues: THORACIC FLUID Procedures: Special Stain Group II Surgery Specimen Level IV Cytospin Fluid HEADER OPERATION: Thoracentesis PRE-OP DIAGNOSIS: Acute hypoxic respiratory failure TISSUE SUBMITTED: Thoracentesis fluid for cytology DIAGNOSIS CYTOLOGY Thoracentesis fluid for cytology (cytospin and cell block): Positive for malignant cells consistent with metastatic small cell carcinoma. See Comment. AM:beny 07/04/19 COMMENT Immunohistochemistry ([id number]) supports the above diagnosis. Reference is made to the patient's previous right posterior lung mass, CT-guided core biopsy ([id number]) in which non-small cell carcinoma, favor squamous cell carcinoma was identified. The slides from this previous case are reviewed and compared to the present biopsy. Reference is also made to the patient's previous history of small cell carcinoma from 2016 ( by history). Case has been reviewed in consultation with Dr. Saucedo who concurs with the above diagnosis. IDC:SJ CYTOLOGY STUDY Slides are reviewed. CYTOLOGY GROSS Received is 25 ml of cloudy fluid labeled with the patient's name and and designated per the requisition as right chest, thoracic fluid. Submitted for cytology preparation including cell block. / CC:cc 07/03/19 TC:0 CPT: 29647, 99161
--- NOTE | 2019-07-01 | IMM_PTH ---
PATIENT: ALEXANDRA WALTER Jr. LOC: ICU U#:[id number] AGE/SX: 73/M ROOM: ICU03 RE07/01/[address]: Dr. Alirio Das MD : 1945 BED: 1 DIS: 07/03/2019 SPEC #: [id number] RECD: 07/04/19 10:13 STATUS: INEZ REQ #: [id number] ABEBA: 07/01/19 00:[address]: Tawanda Anthony DEPT: IMMUNOHISTOCHEMISTRY RECD BY: Radha Graham ENTERED: 07/04/19 10:16 SP TYPE: IMMUNO OTHR DR: MD Dr. Kun Ventura MD Dr. Charles Milligan, DO Dr. Prakash Chand, MD Tyra Schlabach, PERSONNEL ARBITRATOR-C Tissues: THORACIC FLUID Procedures: Synapto (add) NAPSIN A (add) Kel Ret (add) CD56 (add) CEA (add) CHROMO (add) CK14 (add) CK19 (add) CK20 (add) CK5-6 (add) CK8 (add) WALKER-2 (add) KI-67 (add) P53 (add) TTF1 (add) Vimentin (add) 34BE12 (add) Pankeratin (add) P40 (add) CK7 (initial) NSE (add) PHYSICIAN & INSTITUTION [place] [id number] SPECIMEN INFORMATION: Tissue Source: Thoracentesis fluid Clinical Info: Acute hypoxic respiratory failure Specimen Number: [id number] CPT code: 51373, 23672 x20 METHODOLOGY: Deparaffinized sections of prefer/formalin-fixed tissue or PAP/DQ stained slides are incubated with monoclonal/polyclonal antibodies/oligonucleotide probes. Localization is made via biotin free immunoperoxidase method. Appropriate controls are performed and reacted as expected. Results on target cell population are indicated in the following table: RESULTS: ANTIBODY / CLONE RESULT CK7 (OV-TL12/30) negative CK20 (KS20.8) negative WALKER-2 (SP21) negative Vimentin (V9) negative CD56 (123C3.D5) positive, dim Chromo (LK2H10) positive, dim TTF-1 (8G7G3/1) positive, dim Napsin A (Rabbit Polyclonal) negative CK5-6 (D5 & 1684) negative CK14 (LL002) negative P40 (BC28) negative P53 (DO-7) positive, 90% moderate intensity Ki-67 (30-9) positive 60% CK8 (41xzqbD53) positive AE1-3 (AE1/AE3/PCK26) positive 34BE12 (34BE12) negative CK19 (A53-B/A2.26) negative Synapto (polyclonal) positive NSE Neuron Specific Enolase positive CALRET (polyclonal) negative CEA (11-7/TF-3HB-1) negative These tests were developed and their performance characteristics determined by [facility]. They may not have been cleared or approved by the U.S. Food and Drug Administration. The FDA has determined that such clearance or approval is not necessary. The above immunohistochemical/dualISH markers are ordered and reviewed by the Pathologist. INTERPRETATION: Thoracentesis fluid: Metastatic small cell carcinoma. AM:beny 07/06/19 Case has been reviewed in consultation with Dr. Saucedo who concurs with the above diagnosis. IDC:SJ
--- NOTE | 2019-07-01 11:43 | EKG12_ITS ---
Test Reason : RHYTHM CHANGE Blood Pressure : / mmHG Vent. Rate : 149 BPM Atrial Rate : 136 BPM P-R Int : 000 ms QRS Dur : 096 ms QT Int : 316 ms P-R-T Axes : 000 000 159 degrees QTc Int : 497 ms Atrial fibrillation Low voltage QRS Nonspecific ST/T wave Abnormality Abnormal ECG Confirmed by MATTHEW RODRIGUEZ, RADHA ([id number]), publications editor NERY RASHEED ([id number]) on 07/06/2019 11:33:00 AM Referred By: Elina Berrios Confirmed By:RADHA CASTRO MD
--- NOTE | 2019-07-01 11:46 | ED.DCSUM_ITS ---
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 Rivera. He presents because of increased shortness of breath. His pulse ox is 70% on 8 L by nasal cannula. He is on 8 L at home. became frustrated because of questions were asked. She stated everything is on your records . Asked if anyone discussed CODE STATUS. White's response was he is getting chemotherapy . When asked prognosis they were told they were not given prognosis. Patient initially had productive cough. Cough is now nonproductive. He has had increased swelling of his lower extremities. He was prescribed Lasix. He is unable to lie flat. He denies chest pain. He denies fever or chills. History is limited secondary to respiratory distress. Prior similar symptoms: Yes Recent Illness/Hospitalization: Yes - Past Medical History (1) Pleural effusion Status: Chronic (2) GERD (gastroesophageal reflux disease) Status: Chronic (3) History of DVT (deep vein thrombosis) Status: Chronic (4) H/O percutaneous transluminal coronary angioplasty Status: Chronic Comment: PTCA/stent of the mid LAD, prox 1st diag, prox RCA 08/13/10; PTCA/BETO of the Ostial/Prox 1st diag 12/15/16 (5) Hx of appendectomy Status: Chronic (6) Acute and chronic respiratory failure with hypoxia Status: Acute (7) Right upper lobe pulmonary nodule Status: Chronic (8) Non-small cell carcinoma of left lung, stage 3 Status: Chronic (9) Paroxysmal atrial fibrillation Status: Chronic (10) Atherosclerotic heart disease of [place] coronary artery without angina pectoris Status: Chronic Comment: PTCA/stent of the mid LAD, prox 1st diag, prox RCA 08/13/10; PTCA/BETO of the Ostial/Prox 1st diag 12/15/16 (11) Long-term use of high-risk medication Status: Chronic (12) Radiation esophagitis Status: Chronic (13) HLD (hyperlipidemia) Status: Chronic (14) COPD (chronic obstructive pulmonary disease) Status: Chronic Past Medical History - Allergies and Home Meds Allergies/Adverse Reactions: Allergies No Known Allergies Allergy (Verified 07/01/19 11:35) Primary Care Physician: Rogelio Green DO [Primary Care Provider] - Prior records reviewed: Yes Surgical History: appendectomy, - - Cardiac stents. Lives: Spouse/ Significant Other Smoking Status: Former smoker Alcohol: None Drugs: None - Family History Maternal Family History: Family History (Last Reviewed 06/22/19 @ 15:38 by Cheri Vo) Father Heart disease Mother Cancer Brother Diabetes Son Atrial fibrillation Family History: Reports: Cancer - Lung cancer Paternal Family History: Family History (Last Reviewed 06/22/19 @ 15:38 by Cheri Vo) Father Heart disease Mother Cancer Brother Diabetes Son Atrial fibrillation Family History: Reports: Heart Disease Sibling Family History: Family History (Last Reviewed 06/22/19 @ 15:38 by Cheri Vo) Father Heart disease Mother Cancer Brother Diabetes Son Atrial fibrillation Family History: Reports: Diabetes Review of Systems General: Reports: Malaise, Sweats. Denies: Chills, Fever, Subjective Eyes: Denies: Visual changes - bilaterally, Blurred Vision - bilaterally ENT: Reports: Rhinorrhea - Rhinorrhea is chronic. Denies: Bilateral ear pain, Sore throat Cardiovascular: Denies: Chest pain, Palpitations, Heart racing Respiratory: Reports: Dyspnea, Cough, Dyspnea on exertion, Orthopnea. Denies: Sputum Gastrointestinal: Denies: Abdominal pain, Nausea, Vomiting, Diarrhea, Melena, Hematochezia Genitourinary: Denies: Dysuria, Hematuria, Frequency Musculoskeletal: Reports: Swelling. Denies: Myalgias, Arthralgias, Neck pain, Back pain, Extremity Pain Skin: Denies: Rash, Wounds Neurological: Reports: Weakness. Denies: Headache, Parasthesia Endocrine: Denies: Polyuria, Polydipsia Hematologic: Denies: Easy bruising, Easy bleeding Physical Exam Vital Signs/Narrative: Vital Signs Temp Pulse Resp BP Pulse Ox 07/01/19 11:42 96.6 F L 97 27 H 157/100 H 92 07/01/19 11:35 96.6 F L 102 H 26 H 157/100 H 81 Inital Vital Signs reviewed: Yes General: Well nourished, Well developed, Acute Distress Head: Normocephalic, Atraumatic Eyes: Perrl, EOMI, Pale conjunctiva. Negative for: Scleral icterus ENT: TM's clear, Nasal congestion Neck: Supple, Nontender, No lymphadenopathy, No JVD Cardiovascular: Regular rhythm, No murmurs, Normal S1, Normal S2, Tachycardia Respiratory: Chest nontender, Rales, Wheezing, Decreased Air Movement. Negative for: No distress, CTA bilaterally Abdomen: Soft, Nontender, Nondistended, Normal bowel sounds Rectal: Deferred Back: Nontender. Negative for: Normal Inspection Extremities: Nontender, Edema - 3+ pitting edema Skin: No rash, Cyanosis, No Trauma, - - She has mottling with decreased capillary refill. Negative for: Normal color, Diaphoresis, Jaundice Neurological: Alert, Oriented x3, Cranial nerves II-XII grossly intact, Normal Strength Psychological: Normal affect, Normal Mood Diagnostic/Tx/Re-eval Chest X-Ray - ED: 1 View, Read by ED Physician, Normal, Heart, Bony Structures, - - There is evidence of abnormality right lower lobe most likely represents pneumonia because of the rapid change from prior. There is also evidence of pleural effusion. This may be worsening of his malignancy as well. There is no evidence of pneumothorax. Impressions Chest X-Ray 07/01/19 11:48 IMPRESSION: 1. Unfavorable change. Worsening consolidation of the right lung base suggesting pulmonary edema, pneumonia or worsening neoplasm (patient has history of lung cancer), the latter somewhat unlikely given short interval change. Electronically Signed: Henrik Li MD (Brooks) at 12:36 EST , Service support , 07/01/19 11:48 Chest 1 View (Portable) [RAD] Stat Laboratory Results 07/01/19 07/01/19 07/01/19 11:50 11:50 11:50 WBC 8.8 RBC 4.34 L Hgb 13.4 Hct 42.6 MCV 98.2 H MCH 30.9 MCHC 31.5 L RDW Std Deviation 53.6 H RDW Coeff of Jamie 14.9 H Plt Count 134 L MPV 10.3 Immature Gran % (Auto) 1.400 H Neut % (Auto) 82.9 H Lymph % (Auto) 8.7 L [place] % (Auto) 6.3 Eos % (Auto) 0.2 Baso % (Auto) 0.5 Absolute Neuts (auto) 7.3 Absolute Lymphs (auto) 0.76 L Nucleated RBC % 0 Specimen Type Sample Site pH Bicarbonate Actual POC Total CO2 Base Excess O2 Saturation ABG pCO2 ABG pO2 Logan Test O2 Delivery Device Liter Flow Blood Gas Notified Whom Blood Gas Notified Time Sodium 143 Potassium 4.2 Chloride 106 Carbon Dioxide 34.0 H Anion Gap 3 L BUN 21 H Creatinine 1.12 Estim Creat Clear Calc 65.44 Est GFR (MDRD) Af Amer 83 Est GFR (MDRD) Non-Af 68 BUN/Creatinine Ratio 18.8 Glucose 185 H Lactic Acid 1.7 Calcium 8.8 Total Bilirubin 0.30 AST 20 ALT 29 Alkaline Phosphatase 61 Total Protein 6.1 L Albumin 2.7 L Globulin 3.4 Albumin/Globulin Ratio 0.8 L 07/01/19 12:11 WBC RBC Hgb Hct MCV MCH MCHC RDW Std Deviation RDW Coeff of Jamie Plt Count MPV Immature Gran % (Auto) Neut % (Auto) Lymph % (Auto) [place] % (Auto) Eos % (Auto) Baso % (Auto) Absolute Neuts (auto) Absolute Lymphs (auto) Nucleated RBC % Specimen Type ART Sample Site L Radial pH 7.36 Bicarbonate Actual 31.8 H POC Total CO2 33 Base Excess 6 H O2 Saturation 94 L ABG pCO2 56.0 H ABG pO2 76 Logan Test POS O2 Delivery Device NRB Mask Liter Flow 15.0 Blood Gas Notified Whom ED MD Blood Gas Notified Time 1200 Sodium Potassium Chloride Carbon Dioxide Anion Gap BUN Creatinine Estim Creat Clear Calc Est GFR (MDRD) Af Amer Est GFR (MDRD) Non-Af BUN/Creatinine Ratio Glucose Lactic Acid Calcium Total Bilirubin AST ALT Alkaline Phosphatase Total Protein Albumin Globulin Albumin/Globulin Ratio - Rhythm Strip Rhythm Strip: Sinus Rhythm Rate: 95 Ectopy: None - EKG Initial EKG Interpretation: Sinus Rhythm - This rhythm with a ventricular rate of 94. PA interval is 166 ms. QRS duration 96 ms. QT duration 380 ms with a QTC of 475. QT is prolonged. There is no ossific lateral changes noted. Is artifact due to respiratory distress. - Medical Decision Making Patient presents in respiratory distress. This may be secondary to malignancy versus pneumonia versus other causes. One is entertain possibility of pulmonary embolus. Need to determine CODE STATUS. Patient was informed that if he is intubated which is a possibility since his saturation is 90% on 15 L by nonrebreather he may be on the vent for prolonged period time and would probably need a tracheostomy. She states last time he was in the hospital he wanted everything done. Spoke with son and regarding CODE STATUS. They spoke with Mr. Anders. Plan is to attempt to drain effusion. They would like to try BiPAP. Because of the significant change on chest x-ray over the past week we will tr eat for pneumonia. He received 750 mg of levofloxacin IV piggyback. Lactate is normal. - Critical Care Time Critical care time (excluding procedures): 30-74 minutes - Code care time 37 minutes which included discussion with patient, family and spouse regarding CODE STATUS, seriousness of illness and prognosis., Discussing w/Patient &/or Family/Photovoltaic Installer, Arranging Admission or Transfer, Performing Direct Patient Care at Bedside ED Disposition - Plan for ED Patient: Disposition: Acute Care Hospital [facility] Diagnosis: Acute respiratory failure with hypoxia and hypercapnia, Right lower lobe consolidation, Small cell carcinoma, History of coronary artery disease, r ecurrent malignant pleural effusion Referrals: Rogelio Green DO [Primary Care Provider] -
--- NOTE | 2019-07-01 11:48 | RAD_ITS ---
STUDY: X-RAY CHEST REASON FOR EXAM: Male, 73 years old. RESPIRATORY FAILURE WITH HYPOXIA, RALES, WHEEZING TECHNIQUE: AP COMPARISON: 06/20/2019 FINDINGS: Right chest port is stable. Increase in consolidation involving the right lung base extending to the right hilum and into the right upper lobe since the prior study. Reticular opacities in the mid and lower left lung stable. There is pleural fibrotic scarring of the left costophrenic angle. There is a chest tube at the right lung base, stable. There is mild cardiac enlargement. Normal mediastinum and tessa. Normal visualized pulmonary arteries. There is atherosclerotic tortuosity of the aortic arch and descending thoracic aorta. No acute bony process. There is no demonstrated abnormality of the visualized soft tissue structures of the upper abdomen. RAD/Chest 1 View (Portable) IMPRESSION: 1. Unfavorable change. Worsening consolidation of the right lung base suggesting pulmonary edema, pneumonia or worsening neoplasm (patient has history of lung cancer), the latter somewhat unlikely given short interval change. Electronically Signed: Henrik Li MD (Brooks) at 12:36 EST , Service support ,
[2019-07-01 12:09] LABS: Absolute Lymphocyte Count 0.76 X10^3/uL (0.83-4.51); Absolute Neutrophil Count 7.3 X10^3/uL (2.0-7.7); Basophil# 0.04 X10^3/uL; Basophil% 0.5 % (0-1); Eosinophil# 0.02 X10^3/uL; Eosinophils% 0.2 % (0-5); Hematocrit 42.6 % (40-54); Hemoglobin 13.4 g/dL (13.0-16.5); Lymphocyte # 0.76 X10^3/ul (4.0); Lymphocyte % 8.7 % (19-41); Mean Corp Hgb Conc 31.5 g/dL (32-36); Mean Corpuscular Hgb 30.9 pg (27.0-32.0); Mean Corpuscular Volume 98.2 fL (80-94); Mean Platelet Vol. 10.3 fl (6.2-12.0); Monocyte# 0.55 X10^3/uL; Monocyte% 6.3 % (0-10); NRBC Flagged by Analyzer 0 % (0-5); Neutrophil # 7.28 X10^3/uL (2.7-7.7); Neutrophil % 82.9 % (47-70); Platelet Count 134 K/mm3 (150-450); RBC Distribution Width CV 14.9 % (11.6-14.6); RBC Distribution Width SD 53.6 fl (35.1-43.9); Red Blood Count 4.34 M/mm3 (4.6-6.2); White Blood Count 8.8 K/mm3 (4.4-11.0)
[2019-07-01 12:16] LABS: Allen Test POS; Base Excess 6 mmol/L (-2 to +2); Bicarbonate 31.8 mmol/L (22-26); Blood Gas Specimen Type ART; O2 Delivery Device NRB Mask; PO2 76 mmHG (75-100); SITE L Radial; SO2 94 % (95-99); Time Given 1200; Total Carbon Dioxide 33 mmol/L; pH 7.36 (7.35-7.45)
[2019-07-01 12:21] LABS: ALB/GLOB Ratio 0.8 RATIO (0.9-2.4); AST(SGOT) 20 U/L (15-37); Alanine Aminotransfer ALT/SGPT 29 U/L (16-61); Albumin, Serum 2.7 g/dL (3.2-5.0); Alkaline Phosphatase 61 U/L (45-117); Anion Gap 3 (5-15); BUN 21 mg/dL (7-18); BUN/Creat Ratio 18.8 RATIO (10-20); Calcium,Total 8.8 mg/dL (8.5-10.1); Chloride 106 mmol/L (98-107); Creatinine, Serum 1.12 mg/dL (0.70-1.30); EST Glomerular Filtration Rate 68 mL/min (>60); Est Glom Filt Rate - Afr Amer 83 mL/min (>60); Estimated Creatinine Clearance 65.44 ml/min; Globulin 3.4 g/dL (2.2-4.2); Glucose 185 mg/dL (74-106); Potassium 4.2 mmol/L (3.5-5.1); Protein, Total 6.1 g/dL (6.4-8.2); Sodium Level 143 mmol/L (136-145)
[2019-07-01] MEDS: Ipratropium/Albuterol Sulfate 3 ML AMPUL.NEB INHALATION ×4 (12:26→22:25)
[2019-07-01 12:28] LABS: Lactic Acid 1.7 mmol/L (0.4-1.9)
[2019-07-01] MEDS: Albuterol 2.5 MG/3 ML VIAL.NEB. INHALATION ×3 (12:32→13:08)
--- NOTE | 2019-07-01 13:10 | NURSING ---
DR ELIAS FOR DR SHARP
[2019-07-01] MEDS: levoFLOXacin IV 750 MG/150 ML BAG 100 MG IV (13:11)
--- NOTE | 2019-07-01 13:48 | PCM.HP.STD ---
Problem List (1) Pleural effusion Status: Chronic (2) Acute respiratory failure with hypoxia and hypercapnia Status: Acute History of Present Illness Date of Admission: 07/01/19 Chief Complaint: Progressive shortness of breath The patient is a 73 year old M past medical history of metastatic lung CA, being followed by oncology, who has had multiple admissions to the hospital with acute on chronic hypoxic respiratory failure. Patient was recently discharged from the hospital and was seen for pleural effusion, pneumonia, COPD exacerbation as well as progression of his metastatic lung CA. Patient and his last admission was started on BiPAP in the ED, IV antibiotics. Antibiotics were subsequently discontinued. Patient underwent diuresis with worsening renal function. He subsequently had a Pleurx catheter placed and the family has been draining about 1 L of fluid. He last got fluid drained 2 days ago. He is due to have pleural fluid drained today. Denied any fever or chills. Admits to a cough productive of greenish sputum. Admits to orthopnea, PND, bilateral leg swelling. Patient is on 8 L of oxygen at home. He was found to be saturating 70% on 8 L of oxygen. His RBC count is 8.8, hemoglobin is 13.4, platelet count is 134. ABG shows pH of 7.36, PO2 of 94, PCO2 of 56, patient's BMP was unremarkable except for carbonate of 34, lactic acid was 1.7. Chest x-ray showed worsening pneumonia/pleural effusion. Past Medical History Past Medical History (Chronic Problems): Chronic Problems (Last Reviewed 06/22/19 @ 15:38 by Cheri Vo) Pleural effusion (Chronic) PND (post-nasal drip) (Chronic) GERD (gastroesophageal reflux disease) (Chronic) History of DVT (deep vein thrombosis) (Chronic) H/O percutaneous transluminal coronary angioplasty (Chronic) PTCA/stent of the mid LAD, prox 1st diag, prox RCA 08/13/10; PTCA/BETO of the Ostial/Prox 1st diag 12/15/16 Hx of appendectomy (Chronic) Thrombocytopenia (Chronic) Anemia (Chronic) Pancytopenia (Chronic) Right upper lobe pulmonary nodule (Chronic) Non-small cell carcinoma of left lung, stage 3 (Chronic) Paroxysmal atrial fibrillation (Chronic) Atherosclerotic heart disease of [place] coronary artery without angina pectoris (Chronic) PTCA/stent of the mid LAD, prox 1st diag, prox RCA 08/13/10; PTCA/BETO of the Ostial/Prox 1st diag 12/15/16 Long-term use of high-risk medication (Chronic) Primary small cell malignant neoplasm of lung, stage 3 (Chronic) Nocturnal hypoxia (Chronic) Radiation esophagitis (Chronic) HLD (hyperlipidemia) (Chronic) Small cell lung cancer (Chronic) History of coronary artery stent placement (Chronic) PTCA/stent of the mid LAD, prox 1st diag, prox RCA 08/13/10; PTCA/BETO of the Ostial/Prox 1st diag 12/15/16 Obesity (BMI 30-39.9) (Chronic) Smoking addiction (Chronic) COPD (chronic obstructive pulmonary disease) (Chronic) HTN (hypertension) (Chronic) Medical History: Medical History (Last Reviewed 06/22/19 @ 15:38 by Cheri Vo) PND (post-nasal drip) (Chronic) R09.82 GERD (gastroesophageal reflux disease) (Chronic) K21.9 History of DVT (deep vein thrombosis) (Chronic) Z86.718 Paroxysmal atrial fibrillation (Chronic) I48.0 Atherosclerotic heart disease of [place] coronary artery without angina pectoris (Chronic) I25.10 PTCA/stent of the mid LAD, prox 1st diag, prox RCA 08/13/10; PTCA/BETO of the Ostial/Prox 1st diag 12/15/16 Long-term use of high-risk medication (Chronic) Z79.899 Primary small cell malignant neoplasm of lung, stage 3 (Chronic) C34.90 Nocturnal hypoxia (Chronic) G47.34 Radiation esophagitis (Chronic) K20.8 HLD (hyperlipidemia) (Chronic) E78.5 Small cell lung cancer (Chronic) C34.90 Obesity (BMI 30-39.9) (Chronic) E66.9 Smoking addiction (Chronic) F17.200 COPD (chronic obstructive pulmonary disease) (Chronic) J44.9 HTN (hypertension) (Chronic) I10 Bradycardia (Resolved) R00.1 Chest pain (Resolved) R07.9 Acute cystitis (Inactive) N30.00 Adjustment and management of vascular access device (Inactive) Z45.2 Chemotherapy induced nausea and vomiting (Inactive) R11.2, T45.1X5A DVT of upper extremity (deep vein thrombosis) (Inactive) I82.629 Encephalopathy (Inactive) G93.40 Lightheadedness (Inactive) R42 Pancytopenia (Inactive) D61.818 Sepsis (Inactive) A41.9 Allergies No Known Allergies Allergy (Verified 07/01/19 11:35) Home Medications: Ambulatory Orders Medication Instructions Recorded Multivit-Min/FA/Lycopen/Lutein 1 ea PO DAILY 10/14/16 [Centrum Silver Tablet] aspirin 81 mg tablet,delayed 81 mg PO DAILY 12/19/17 release ascorbic acid (vitamin C) 500 mg 500 mg PO DAILY cap 12/20/17 capsule albuterol sulfate 90 mcg/actuation 1 - 2 puff INHALATION Q4H PRN PRN 02/21/18 aerosol inhaler #1 device cholecalciferol (vitamin D3) 5,000 5,000 unit PO DAILY 06/21/18 unit capsule clopidogrel 75 mg tablet 75 mg PO DAILY #90 tab 10/04/18 metoprolol tartrate 50 mg tablet 50 mg PO BID #180 tab 03/29/19 nitroglycerin 0.4 mg sublingual 0.4 mg SUBLINGUAL PRN PRN #25 tab 04/07/19 tablet Amiodarone HCl [Cordarone] 100 mg PO DAILY tab 05/29/19 Ipratropium/Albuterol Sulfate 3 ml INHALATION Q6HWA.RT #1 05/29/19 [Duoneb] ampul.neb furosemide 40 mg tablet 40 mg PO DAILY #30 tab 06/12/19 simvastatin 20 mg tablet 20 mg PO QHS #90 tab 06/19/19 acetylcysteine 200 mg/mL (20 %) 2 ml INHALATION Q4H #30 ml 06/26/19 solution Surgical History: Surgical History (Last Reviewed 06/22/19 @ 15:38 by Cheri Vo) H/O percutaneous transluminal coronary angioplasty (Chronic) Z98.61 PTCA/stent of the mid LAD, prox 1st diag, prox RCA 08/13/10; PTCA/BETO of the Ostial/Prox 1st diag 12/15/16 Hx of appendectomy (Chronic) Z90.49 History of coronary artery stent placement (Chronic) Z95.5 PTCA/stent of the mid LAD, prox 1st diag, prox RCA 08/13/10; PTCA/BETO of the Ostial/Prox 1st diag 12/15/16 Surgical History: appendectomy, - - Cardiac stents. Psychiatric History: No pertinent psych hx Lives: Spouse/ Significant Other Smoking Status: Former smoker Alcohol: None Drugs: None - *Family History Maternal Family History: Family History (Last Reviewed 06/22/19 @ 15:38 by Cheri Vo) Father Heart disease Mother Cancer Brother Diabetes Son Atrial fibrillation History Items: Cancer - Lung cancer Paternal Family History: Family History (Last Reviewed 06/22/19 @ 15:38 by Cheri Vo) Father Heart disease Mother Cancer Brother Diabetes Son Atrial fibrillation History Items: Heart Disease Sibling Family History: Family History (Last Reviewed 06/22/19 @ 15:38 by Cheri Vo) Father Heart disease Mother Cancer Brother Diabetes Son Atrial fibrillation History Items: Diabetes Review of Systems Constitutional: Reports: Anorexia, Malaise, Weakness, Fatigue. Denies: Chills, Fever, Weight Change Eyes: Denies: Blurred vision, Cataracts, Double vision, Pain, Redness HEENT: Denies: Difficulty Hearing, Difficulty Swallowing, Head Aches, Hearing Changes, Nasal bleeding, Sinus Congestion, Sinus Drainage Cardiovascular: Denies: Chest Pain, Claudication, Orthopnea, Palpitations, Paroxysmal Noc. Dyspnea Respiratory: Reports: Cough, Shortness of Breath, Shortness of breath at rest, Shortness of breath upon exertion. Denies: Sputum production Gastrointestinal: Denies: Abdominal Pain, Constipation, Hematemesis, Hematochezia, Nausea, Vomiting Genitourinary: Denies: Dysuria, Frequency, Incontinence, Nocturia Musculoskeletal: Denies: Joint Pain, Joint stiffness, Joint swelling, Joint Tenderness Skin: Denies: Rash, Wounds Neurological: Denies: Difficulty swallowing, Focal weakness, Numbness, Tingling Psychiatric: Denies: Anxiety, Depression, Homicidal Ideations, Suicidal Ideations Hematologic/ Lymphatic: Denies: Easy Bruising, Easy Bleeding VTE Information - Inpt Only VTE Present on Admission: No VTE Pharm Prophylaxis ordered?: Yes Patient Problems: Active and Suspected Problems (Last Reviewed 06/22/19 @ 15:38 by Cheri Vo) Acute respiratory failure with hypoxia and hypercapnia (Acute) Right lower lobe consolidation (Acute) Small cell carcinoma (Acute) History of coronary artery disease (Acute) - Physical Exam Vitals/I&O's: Vital Signs Temp Pulse Resp BP Pulse Ox 96.6 F L 96 30 H 117/84 H 92 12/28/19 11:42 07/01/19 13:20 07/01/19 13:20 07/01/19 13:20 07/01/19 13:20 Oxygen Flow Rate (L/min) 15 Oxygen Delivery Method Bi-pap Weight: 99.3 kg Body Mass Index (BMI) 29.7 General: Alert, Oriented x3, Cooperative, - - in moderate respiratory distress, on Bipap HEENT: Atraumatic, PERRLA, EOMI, Normocephalic Oral: Moist Mucosa Neck: Supple Lungs: Diminished - absent breath sounds on the right side of lung Cardiovascular: Regular rate, Regular Rhythm, Normal S1, Normal S2, No murmurs Abdomen: Bowel Sounds Present, Soft, Non Tender, Non-Distended, No Hepato-splenomegaly Extremities: Edema - +2 bilaterally Skin: No rashes Musculoskeletal: No Tenderness to Palpation of Joints or Extremities Lymphatic: No Cervical, Supraclavicular, or Inguinal Adenopathy Neurological: Cranial nerves II-XII grossly intact, Neuro grossly intact Psych/Mental Status: Normal Affect, Appropriate Laboratory Results 07/01/19 11:50: WBC 8.8, RBC 4.34 L, Hgb 13.4, Hct 42.6, MCV 98.2 H, MCH 30.9, MCHC 31.5 L, RDW Std Deviation 53.6 H, RDW Coeff of Jamie 14.9 H, Plt Count 134 L, MPV 10.3, Immature Gran % (Auto) 1.400 H, Neut % (Auto) 82.9 H, Lymph % (Auto) 8.7 L, [place] % (Auto) 6.3, Eos % (Auto) 0.2, Baso % (Auto) 0.5, Absolute Neuts (auto) 7.3, Absolute Lymphs (auto) 0.76 L, Nucleated RBC % 0 07/01/19 11:50: Sodium 143, Potassium 4.2, Chloride 106, Carbon Dioxide 34.0 H, Anion Gap 3 L, BUN 21 H, Creatinine 1.12, Estim Creat Clear Calc 65.44, Est GFR (MDRD) Af Amer 83, Est GFR (MDRD) Non-Af 68, BUN/Creatinine Ratio 18.8, Glucose 185 H, Calcium 8.8, Total Bilirubin 0.30, AST 20, ALT 29, Alkaline Phosphatase 61, Total Protein 6.1 L, Albumin 2.7 L, Globulin 3.4, Albumin/Globulin Ratio 0.8 L 07/01/19 11:50: Lactic Acid 1.7 07/01/19 12:11: Specimen Type ART, Sample Site L Radial, pH 7.36, Bicarbonate Actual 31.8 H, POC Total CO2 33, Base Excess 6 H, O2 Saturation 94 L, ABG pCO2 56.0 H, ABG pO2 76, Logan Test POS, O2 Delivery Device NRB Mask, Liter Flow 15.0, Blood Gas Notified Whom ED MD, Blood Gas Notified Time 1200 Current Medications Levofloxacin (Levaquin Iv) 750 mg in 150 mls @ 100 mls/hr IV X1 ONE Stop: 07/01/19 14:20 Last Admin: 07/01/19 13:11 Dose: 100 mls/hr Documented by: Sodium Chloride () 250 mls @ 100 mls/hr IV .Q2H30M PRN PRN Reason: Additional IVPB Infusion Assessment/Plan All Active Problems (Last Reviewed 06/22/19 @ 15:38 by Cheri Vo) Acute respiratory failure with hypoxia and hypercapnia (Acute) Right lower lobe consolidation (Acute) Small cell carcinoma (Acute) History of coronary artery disease (Acute) Community-acquired pneumonia (Acute) Acute and chronic respiratory failure with hypoxia (Acute) Bradycardia (Resolved) Chest pain (Resolved) 73 year old M past medical history of metastatic lung CA, being followed by oncology, who has had multiple admissions to the hospital with acute on chronic hypoxic respiratory failure seen with progressive shortness of breath and cough 1. Acute on chronic respiratory failure secondary to progressive pleural effusion, lung CA, possible pneumonia Patient currently is on BiPAP, on 8 L of oxygen at home Patient is due for pleural tap today; family brought equipment Would admit to ICU as patient and the family are undecided on his CODE STATUS and goals of care Hydrogen Operator consult, breathing treatments, connect Pleurx catheter to pleural apparatus, Dr. Anthony to consult for possible loculation of pleural fluid 2. Possible Pneumonia, will continue on empiric Levaquin 3. CAD/paroxysmal atrial fibrillation/hyperlipidemia, continue on aspirin, Plavix, metoprolol, amiodarone, statin 4. Small cell and non-small cell lung CA 5. VT prophylaxis with heparin subcu 6. Code status: Discussed in detail with the patient explaining the various types of CODE STATUS-full code, DNR CCA, DNR CC. I explained that he is currently on BiPAP and should he get worse that would mean we will have to intubate him. Patient and his would like to discuss this further and will let the primary treatment team know. Time spent discussing CODE STATUS 18 minutes Code Visit Inpatient E&M: 00100 Init Hosp L3 Procedures: 35486 Advncd Care Plan 30 Min
--- NOTE | 2019-07-01 13:49 | NURSING ---
ICU PAINTSIL ACUTE HYPOXIC RESP FAILURE, PLEURAL EFFUSION
--- NOTE | 2019-07-01 13:56 | NURSING ---
ICU 3
--- NOTE | 2019-07-01 14:21 | CPS ---
Mask used for Duoneb and x1 Albuterol; BiPAP ordered & x2 Albuterol given in-line
[2019-07-01 16:36] LABS: Cytology, Body Fluid / CSF SEE PATHOLOGY REPORT
[2019-07-01] MEDS: Heparin Injection (Vial) 5,000 UNIT/ML VIAL 5000 UNIT SC ×2 (18:05→21:11)
[2019-07-01] MEDS: Morphine 2 MG/ML Syringe IV (18:45)
[2019-07-01] MEDS: 0.9% Saline Lock 10 ML Syringe IV ×2 (18:45→19:43)
--- NOTE | 2019-07-01 19:07 | CPS ---
decreased FIO2 to 70%
[2019-07-01 19:16] LABS: Allen Test POS; Base Excess 9 mmol/L (-2 to +2); Blood Gas Specimen Type ART; EPAP 6; FI02 80; IPAP 12; PO2 73 mmHG (75-100); RR 12; SITE L Radial; SO2 95 % (95-99); Time Given 1905; Total Carbon Dioxide 35 mmol/L; pCO2 50.7 mmHg (35-45); pH 7.42 (7.35-7.45)
[2019-07-01] MEDS: LORazepam 2 MG/ML Syringe 0.5 MG IV (19:43)
--- NOTE | 2019-07-01 20:40 | CPS ---
Addendum entered by Salty Nj 07/01/19 21:18: added heated humidity to BiPAP Original Note: increased BiPAP to 16/8 and FIO2 to 75% per Dr Taylor
--- NOTE | 2019-07-01 22:25 | CPS ---
decreased FIO2 to 70%
[2019-07-01 23:06] LABS: Bedside Glucose 155 mg/dL (70-110)
[2019-07-02] VITALS (44 sets, daily range): BP systolic 82–117; BP diastolic 51–77; PULSE 10–132; RESP 12–43; TEMP 36.4–37.1; O2SAT 89–97
--- NOTE | 2019-07-02 01:35 | CPS ---
decreased FIO2 to 60%
[2019-07-02] MEDS: Ipratropium/Albuterol Sulfate 3 ML AMPUL.NEB INHALATION ×4 (03:00→19:11)
[2019-07-02 05:14] LABS: Absolute Lymphocyte Count 0.61 X10^3/uL (0.83-4.51); Basophil# 0.02 X10^3/uL; Basophil% 0.2 % (0-1); Hemoglobin 12.3 g/dL (13.0-16.5); Lymphocyte # 0.61 X10^3/ul (4.0); Lymphocyte % 7.5 % (19-41); Mean Corp Hgb Conc 31.5 g/dL (32-36); Mean Corpuscular Hgb 30.6 pg (27.0-32.0); Monocyte% 6.1 % (0-10); NRBC Flagged by Analyzer 0 % (0-5); Neutrophil # 6.96 X10^3/uL (2.7-7.7); Neutrophil % 85.2 % (47-70); Platelet Count 118 K/mm3 (150-450); RBC Distribution Width CV 14.9 % (11.6-14.6); RBC Distribution Width SD 53.1 fl (35.1-43.9); Red Blood Count 4.02 M/mm3 (4.6-6.2); White Blood Count 8.2 K/mm3 (4.4-11.0)
[2019-07-02 05:27] LABS: ALB/GLOB Ratio 0.7 RATIO (0.9-2.4); AST(SGOT) 19 U/L (15-37); Alanine Aminotransfer ALT/SGPT 23 U/L (16-61); Albumin, Serum 2.2 g/dL (3.2-5.0); Alkaline Phosphatase 54 U/L (45-117); Anion Gap 5 (5-15); BUN 22 mg/dL (7-18); BUN/Creat Ratio 20.8 RATIO (10-20); Calcium,Total 8.3 mg/dL (8.5-10.1); Chloride 104 mmol/L (98-107); Creatinine, Serum 1.06 mg/dL (0.70-1.30); EST Glomerular Filtration Rate 73 mL/min (>60); Est Glom Filt Rate - Afr Amer 88 mL/min (>60); Estimated Creatinine Clearance 67.09 ml/min; Globulin 3.2 g/dL (2.2-4.2); Glucose 166 mg/dL (74-106); Potassium 4.1 mmol/L (3.5-5.1); Protein, Total 5.4 g/dL (6.4-8.2); Sodium Level 143 mmol/L (136-145)
[2019-07-02] MEDS: Heparin Injection (Vial) 5,000 UNIT/ML VIAL 5000 UNIT SC ×3 (05:55→22:08)
[2019-07-02 06:15] LABS: Bedside Glucose 146 mg/dL (70-110)
--- NOTE | 2019-07-02 06:35 | RAD_ITS ---
STUDY: X-RAY CHEST REASON FOR EXAM: Male, 73 years old. PLEURAL EFFUSION -- ACUTE HYPOXIC RESPIRATORY FAILURE TECHNIQUE: Single AP portable view of the chest. COMPARISON: 07/01/2019 FINDINGS: MediPort is seen on the right side. 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 There is moderate decrease in size of the right pleural effusion. Chest tube is seen on the right side. Stable small left pleural effusion. Normal size heart. Normal mediastinum and tessa. Normal visualized pulmonary arteries. Normal visualized aortic arch and descending thoracic aorta. Normal visualized thoracic spine. Normal visualized ribs, clavicles, and shoulders. There is no demonstrated abnormality of the visualized soft tissue structures of the upper abdomen. RAD/Chest 1 View (Portable) IMPRESSION: There is moderate decrease in size of the right pleural effusion. Chest tube is seen on the right side. Stable small left pleural effusion. Electronically Signed: Amy Huitron, at 8:32 EST Tel , Service support ,
--- NOTE | 2019-07-02 07:11 | CON.PCM_ITS ---
Problem List (1) Pleural effusion Status: Chronic (2) Acute respiratory failure with hypoxia and hypercapnia Status: Acute (3) Small cell carcinoma Status: Acute (4) History of coronary artery disease Status: Acute (5) PND (post-nasal drip) Status: Chronic (6) GERD (gastroesophageal reflux disease) Status: Chronic Qualifiers: Esophagitis presence: with esophagitis Qualified Code(s): K21.0 - Gastro- esophageal reflux disease with esophagitis (7) History of DVT (deep vein thrombosis) Status: Chronic (8) Hx of appendectomy Status: Chronic (9) Thrombocytopenia Status: Chronic (10) Anemia Status: Chronic Qualifiers: Anemia type: unspecified type Qualified Code(s): D64.9 - Anemia, unspecified (11) Non-small cell carcinoma of left lung, stage 3 Status: Chronic (12) Paroxysmal atrial fibrillation Status: Chronic (13) Radiation esophagitis Status: Chronic (14) HLD (hyperlipidemia) Status: Chronic Qualifiers: Hyperlipidemia type: unspecified Qualified Code(s): E78.5 - Hyperlipidemia, unspecified (15) History of coronary artery stent placement Status: Chronic Comment: PTCA/stent of the mid LAD, prox 1st diag, prox RCA 08/13/10; PTCA/BETO of the Ostial/Prox 1st diag 12/15/16 (16) Obesity (BMI 30-39.9) Status: Chronic (17) COPD (chronic obstructive pulmonary disease) Status: Chronic Qualifiers: COPD type: unspecified COPD Qualified Code(s): J44.9 - Chronic obstructive pulmonary disease, unspecified (18) HTN (hypertension) Status: Chronic Qualifiers: Hypertension type: essential hypertension Qualified Code(s): I10 - Essential (primary) hypertension Reason for Consult Date of Consultation: 07/02/19 Reason for Consultation: Respiratory failure History of Present Illness: The patient is a 73 year old M, with past medical history listed below and well- known to me from previous hospitalizations, who presented to [facility] on 07/01/2019 secondary to increasing shortness of breath. Patient was noted to be 70% on 8 L at home. Patient is currently receiving chemotherapy by Dr. Ayon. Patient reportedly had a productive cough initially, but it had become unproductive. Patient also noted increased swelling of his bilateral lower extremities and had recently been prescribed Lasix. Patient did have a Pleurx catheter placed during last hospitalization and reportedly had this drained 2 days prior to presentation. In the ER, patient was noted to have prolonged QT, but sinus rhythm. Patient was placed on 15 L and saturations improved to 90%. Patient was then placed on BiPAP therapy. Patient's chest tube was placed to a Pleur-evac and approximately 1 L was drained. Patient was admitted to the intensive care unit for further evaluation. Since being in the intensive care unit, patient has reported pain. Patient had also had some episodes of hypotension, but did not require any pressor therapy or boluses. Patient also had significant tachypnea while on baseline BiPAP settings. Patient was placed on 17/02 with improvement in accessory muscle use. Patient was evaluated by the hospitalist overnight and is considering transitioning to a DNR Comfort Care arrest no intubation CODE STATUS, but needs to speak with his . At the time of my evaluation, patient was resting comfortably and would open his eyes to vocal stimulus, but was not interested in providing much history at this time. Unable to obtain a complete review of systems. Past Medical History Past Medical History (Chronic Problems): Chronic Problems (Last Reviewed 06/22/19 @ 15:38 by Cheri Vo) Pleural effusion (Chronic) PND (post-nasal drip) (Chronic) GERD (gastroesophageal reflux disease) (Chronic) History of DVT (deep vein thrombosis) (Chronic) H/O percutaneous transluminal coronary angioplasty (Chronic) PTCA/stent of the mid LAD, prox 1st diag, prox RCA 08/13/10; PTCA/BETO of the Ostial/Prox 1st diag 12/15/16 Hx of appendectomy (Chronic) Thrombocytopenia (Chronic) Anemia (Chronic) Pancytopenia (Chronic) Right upper lobe pulmonary nodule (Chronic) Non-small cell carcinoma of left lung, stage 3 (Chronic) Paroxysmal atrial fibrillation (Chronic) Atherosclerotic heart disease of [place] coronary artery without angina pectoris (Chronic) PTCA/stent of the mid LAD, prox 1st diag, prox RCA 08/13/10; PTCA/BETO of the Ostial/Prox 1st diag 12/15/16 Long-term use of high-risk medication (Chronic) Primary small cell malignant neoplasm of lung, stage 3 (Chronic) Nocturnal hypoxia (Chronic) Radiation esophagitis (Chronic) HLD (hyperlipidemia) (Chronic) Small cell lung cancer (Chronic) History of coronary artery stent placement (Chronic) PTCA/stent of the mid LAD, prox 1st diag, prox RCA 08/13/10; PTCA/BETO of the Ostial/Prox 1st diag 12/15/16 Obesity (BMI 30-39.9) (Chronic) Smoking addiction (Chronic) COPD (chronic obstructive pulmonary disease) (Chronic) HTN (hypertension) (Chronic) Medical History: Medical History (Last Reviewed 06/22/19 @ 15:38 by Cheri Vo) PND (post-nasal drip) (Chronic) R09.82 GERD (gastroesophageal reflux disease) (Chronic) K21.9 History of DVT (deep vein thrombosis) (Chronic) Z86.718 Paroxysmal atrial fibrillation (Chronic) I48.0 Atherosclerotic heart disease of [place] coronary artery without angina pectoris (Chronic) I25.10 PTCA/stent of the mid LAD, prox 1st diag, prox RCA 08/13/10; PTCA/BETO of the Ostial/Prox 1st diag 12/15/16 Long-term use of high-risk medication (Chronic) Z79.899 Primary small cell malignant neoplasm of lung, stage 3 (Chronic) C34.90 Nocturnal hypoxia (Chronic) G47.34 Radiation esophagitis (Chronic) K20.8 HLD (hyperlipidemia) (Chronic) E78.5 Small cell lung cancer (Chronic) C34.90 Obesity (BMI 30-39.9) (Chronic) E66.9 Smoking addiction (Chronic) F17.200 COPD (chronic obstructive pulmonary disease) (Chronic) J44.9 HTN (hypertension) (Chronic) I10 Bradycardia (Resolved) R00.1 Chest pain (Resolved) R07.9 Acute cystitis (Inactive) N30.00 Adjustment and management of vascular access device (Inactive) Z45.2 Chemotherapy induced nausea and vomiting (Inactive) R11.2, T45.1X5A DVT of upper extremity (deep vein thrombosis) (Inactive) I82.629 Encephalopathy (Inactive) G93.40 Lightheadedness (Inactive) R42 Pancytopenia (Inactive) D61.818 Sepsis (Inactive) A41.9 Allergies No Known Allergies Allergy (Verified 07/01/19 11:35) Home Medications: Ambulatory Orders Medication Instructions Recorded Multivit-Min/FA/Lycopen/Lutein 1 ea PO DAILY 10/14/16 [Centrum Silver Tablet] aspirin 81 mg tablet,delayed 81 mg PO DAILY 12/19/17 release ascorbic acid (vitamin C) 500 mg 500 mg PO DAILY cap 12/20/17 capsule albuterol sulfate 90 mcg/actuation 1 - 2 puff INHALATION Q4H PRN PRN 02/21/18 aerosol inhaler #1 device cholecalciferol (vitamin D3) 5,000 5,000 unit PO DAILY 06/21/18 unit capsule clopidogrel 75 mg tablet 75 mg PO DAILY #90 tab 10/04/18 simvastatin 20 mg tablet 20 mg PO QHS #90 tab 06/19/19 Acetylcysteine 2 ml INHALATION Q4H 07/01/19 Amiodarone HCl [Cordarone] 100 mg PO DAILY 07/01/19 Furosemide 40 mg PO DAILY 07/01/19 Ipratropium/Albuterol Sulfate 3 ml INHALATION Q6HWA.RT 07/01/19 [Duoneb] Metoprolol Tartrate [Lopressor 50 mg PO BID 07/01/19 (beta darius)] Nitroglycerin 0.4 mg SUBLINGUAL PRN PRN 07/01/19 Surgical History: Surgical History (Last Reviewed 06/22/19 @ 15:38 by Cheri Vo) H/O percutaneous transluminal coronary angioplasty (Chronic) Z98.61 PTCA/stent of the mid LAD, prox 1st diag, prox RCA 08/13/10; PTCA/BETO of the Ostial/Prox 1st diag 12/15/16 Hx of appendectomy (Chronic) Z90.49 History of coronary artery stent placement (Chronic) Z95.5 PTCA/stent of the mid LAD, prox 1st diag, prox RCA 08/13/10; PTCA/BETO of the Ostial/Prox 1st diag 12/15/16 Surgical History: appendectomy, - - Cardiac stents. Psychiatric History: No pertinent psych hx Lives: Spouse/ Significant Other Smoking Status: Former smoker Alcohol: None Drugs: None - *Family History Maternal Family History: Family History (Last Reviewed 06/22/19 @ 15:38 by Cheri Vo) Father Heart disease Mother Cancer Brother Diabetes Son Atrial fibrillation History Items: Cancer - Lung cancer Paternal Family History: Family History (Last Reviewed 06/22/19 @ 15:38 by Cheri Vo) Father Heart disease Mother Cancer Brother Diabetes Son Atrial fibrillation History Items: Heart Disease Sibling Family History: Family History (Last Reviewed 06/22/19 @ 15:38 by Cheri Vo) Father Heart disease Mother Cancer Brother Diabetes Son Atrial fibrillation History Items: Diabetes Review of Systems Unable to obtain accurate/complete ROS d/t: See HPI Patient Problems: Active and Suspected Problems (Last Reviewed 06/22/19 @ 15:38 by Cheri Vo) Acute respiratory failure with hypoxia and hypercapnia (Acute) Right lower lobe consolidation (Acute) Small cell carcinoma (Acute) History of coronary artery disease (Acute) Objective: All imaging was personally reviewed. Initial chest x-ray did show a large pleural effusion. This was repeated by myself this morning and shows extensive hilar infiltrate/mass with complete resolution of pleural effusion. - Physical Exam Vitals/I&O's: Vital Signs Temp Pulse Resp BP Pulse Ox 36.5 C L 102 H 19 H 94/68 95 07/02/19 06:00 07/02/19 06:00 07/02/19 06:00 07/02/19 06:00 07/02/19 06:00 Oxygen Flow Rate (L/min) 15 Oxygen Delivery Method Bi-pap Weight: 96.8 kg Body Mass Index (BMI) 30.2 Intake and Output for Last 24 Hours 06/30/19 07/01/19 07/02/19 23:59 23:59 23:59 Intake Total 229.67 / 249.67 57.25 / 57.25 Output Total 1395 / 1395 410 / 410 Balance -1165.33 / -1145.33 -352.75 / -352.75 General: Well developed, Well nourished, - - RASS -2. Obese. Good BiPAP synchrony noted. HEENT: Atraumatic, PERRLA, EOMI, Normocephalic, - - No significant BiPAP leak. No scleral icterus or injection noted Oral: Moist Mucosa, No Gingival or Mucosal Lesions/ Ulcerations, - - Poor dentition Neck: Supple, No JVD, No Nodes, Trachea Midline Lungs: No rhonchi, No rales, Diminished, Wheezes - Right greater than left, - - Symmetric expansion. Chest tube is clean, dry and intact Cardiovascular: Normal S1, Normal S2, No murmurs, No rub noted, No Gallop, Tachycardic Abdomen: Bowel Sounds Present, Soft, Non Tender, Non-Distended, Obese Extremities: No clubbing, No cyanosis, Edema Skin: No rashes, No breakdown Musculoskeletal: No Tenderness to Palpation of Joints or Extremities Lymphatic: No Cervical, Supraclavicular, or Inguinal Adenopathy Neurological: Cranial nerves II-XII grossly intact, Neuro grossly intact, Motor Exam 5/5 strength throughout Psych/Mental Status: Appropriate, Flat Affect Laboratory Results 07/01/19 11:50: WBC 8.8, RBC 4.34 L, Hgb 13.4, Hct 42.6, MCV 98.2 H, MCH 30.9, MCHC 31.5 L, RDW Std Deviation 53.6 H, RDW Coeff of Jamie 14.9 H, Plt Count 134 L, MPV 10.3, Immature Gran % (Auto) 1.400 H, Neut % (Auto) 82.9 H, Lymph % (Auto) 8.7 L, [place] % (Auto) 6.3, Eos % (Auto) 0.2, Baso % (Auto) 0.5, Absolute Neuts (auto) 7.3, Absolute Lymphs (auto) 0.76 L, Nucleated RBC % 0 07/01/19 11:50: Sodium 143, Potassium 4.2, Chloride 106, Carbon Dioxide 34.0 H, Anion Gap 3 L, BUN 21 H, Creatinine 1.12, Estim Creat Clear Calc 65.44, Est GFR (MDRD) Af Amer 83, Est GFR (MDRD) Non-Af 68, BUN/Creatinine Ratio 18.8, Glucose 185 H, Calcium 8.8, Total Bilirubin 0.30, AST 20, ALT 29, Alkaline Phosphatase 61, Total Protein 6.1 L, Albumin 2.7 L, Globulin 3.4, Albumin/Globulin Ratio 0.8 L 07/01/19 11:50: Lactic Acid 1.7 07/01/19 12:11: Specimen Type ART, Sample Site L Radial, pH 7.36, Bicarbonate Actual 31.8 H, POC Total CO2 33, Base Excess 6 H, O2 Saturation 94 L, ABG pCO2 56.0 H, ABG pO2 76, Logan Test POS, O2 Delivery Device NRB Mask, Liter Flow 1 5.0, Blood Gas Notified Whom ED , Blood Gas Notified Time 1200 07/01/19 16:10: Miscellaneous Cytology Pending 07/01/19 19:12: Specimen Type ART, Sample Site L Radial, pH 7.42, Bicarbonate Actual 33.0 H, POC Total CO2 35, Base Excess 9 H, O2 Saturation 95, O2 % 80, ABG pCO2 50.7 H, ABG pO2 73 L, Logan Test POS, Respiration Rate 12, O2 Delivery Device Bi / C PAP, EPAP 6, IPAP 12, Blood Gas Notified Whom ICU , Blood Gas Notified Time 1905 07/01/19 22:39: POC Glucose 155 H 07/02/19 04:55: WBC 8.2, RBC 4.02 L, Hgb 12.3 L, Hct 39.0 L, MCV 97.0 H, MCH 30.6, MCHC 31.5 L, RDW Std Deviation 53.1 H, RDW Coeff of Jamie 14.9 H, Plt Count 118 L, MPV 10.0, Immature Gran % (Auto) 1.000 H, Neut % (Auto) 85.2 H, Lymph % (Auto) 7.5 L, [place] % (Auto) 6.1, Eos % (Auto) 0.0, Baso % (Auto) 0.2, Absolute Neuts (auto) 7.0, Absolute Lymphs (auto) 0.61 L, Nucleated RBC % 0 07/02/19 04:55: Sodium 143, Potassium 4.1, Chloride 104, Carbon Dioxide 34.0 H, Anion Gap 5, BUN 22 H, Creatinine 1.06, Estim Creat Clear Calc 67.09, Est GFR (MDRD) Af Amer 88, Est GFR (MDRD) Non-Af 73, BUN/Creatinine Ratio 20.8 H, Glucose 166 H, Calcium 8.3 L, Phosphorus 3.0, Total Bilirubin 0.30, AST 19, ALT 23, Alkaline Phosphatase 54, Total Protein 5.4 L, Albumin 2.2 L, Globulin 3.2, Albumin/Globulin Ratio 0.7 L 07/02/19 05:59: POC Glucose 146 H Current Medications Albuterol Sulfate (Ventolin Aerosols) 2.5 mg INHALATION Q2H PRN PRN PRN Reason: SOB/Wheezing Albuterol/Ipratropium (Duoneb) 3 ml INHALATION Q4HWA.RT CROW Last Admin: 07/02/19 03:00 Dose: 3 ml Documented by: Glucagon () 1 mg IM .X1 PRN PRN Reason: Hypoglycemia Heparin Sodium (Beef Lung) () 50 units IV UD PRN PRN Reason: R Port Heparin Flush Heparin Sodium (Porcine) (Heparin Na) 5,000 unit SC Q8 CROW Last Admin: 07/02/19 05:55 Dose: 5,000 unit Documented by: Sodium Chloride () 250 mls @ 100 mls/hr IV .Q2H30M PRN PRN Reason: Additional IVPB Infusion Levofloxacin (Levaquin Iv) 750 mg in 150 mls @ 100 mls/hr IV Q24 CROW Dextrose (Dextrose 10%-Water) 250 mls @ 999 mls/hr IV .Q16M PRN; Protocol PRN Reason: HYPOGLYCEMIA Diltiazem HCl 125 mg/ Dextrose 125 mls @ 5 mls/hr IV .Q25H CROW; Protocol Last Titration: 07/02/19 06:00 Dose: 0 mg/hr, 0 mls/hr Documented by: Lorazepam (Ativan) 0.5 mg IV Q6H PRN PRN PRN Reason: ANXIETY Last Admin: 07/01/19 19:43 Dose: 0.5 mg Documented by: Morphine Sulfate () 2 mg IV Q4H PRN PRN PRN Reason: Pain Score 6-10/10 Last Admin: 07/01/19 18:45 Dose: 2 mg Documented by: Sodium Chloride () 10 - 40 ml IV UD PRN PRN Reason: R [place] Flush Last Admin: 07/01/19 19:43 Dose: 20 ml Documented by: Sodium Chloride (0.9% Nacl (Sterile) Posiflush) 10 - 40 ml IV UD PRN PRN Reason: Port access or dressing change Clinical Impression(s) from Imaging Studies Chest X-Ray 07/01/19 11:48 IMPRESSION: 1. Unfavorable change. Worsening consolidation of the right lung base suggesting pulmonary edema, pneumonia or worsening neoplasm (patient has history of lung cancer), the latter somewhat unlikely given short interval change. Electronically Signed: Henrik Li MD ([place]) at 12:36 EST , Service support , Assessment/Plan Active and Suspected Problems (Last Reviewed 06/22/19 @ 15:38 by Cheri Vo) Acute respiratory failure with hypoxia and hypercapnia (Acute) Right lower lobe consolidation (Acute) Small cell carcinoma (Acute) History of coronary artery disease (Acute) RECOMMENDATIONS: 1. Continue BiPAP rescue with breaks as tolerated 2. Continue to wean supplemental oxygen as tolerated. 3. CODE STATUS discussion with family 4. Empiric antibiotics for 48 hours, but discontinue if cultures negative 5. Continue aggressive rate control IMPRESSIONS: 1. Acute on chronic hypoxemic respiratory failure Repeat chest x-ray shows complete resolution of pleural effusion. Patient does have some right diaphragmatic elevation, but more impressive is the enlargement of probable mass in the right hilum. Clinical suspicion for segmental atelectasis leading to elevation of the right hilum. Patient is currently on empiric antibiotics, but anticipate respiratory failure secondary to a combination of malignant pleural effusion and progression of malignant disease. Will attempt to discuss with family today about prognosis. 2. 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 Ayon. Patient appears to have progression of lung cancer. 3. History of coronary artery disease/paroxysmal atrial fibrillation with RVR/hyperlipidemia Patient initially on Cardizem, but this is been able to be weaned off and patient is now in sinus rhythm. Clinical suspicion for transition to A. fib with RVR secondary to respiratory decompensation. Patient does have right hilar mass that appears to have enlarged significantly, so cannot exclude malignant complications associated with the pericardium/right atrium. 4. CODE status: Informed full CODE STATUS Addendum 10:05 AM: 45-minute family discussion about patient's current status. Patient was able to respond to BiPAP therapy overnight and is been able to be off of BiPAP since approximately 730 this morning. He was an active participant in this discussion. Various CODE STATUS is were reviewed along with their potential implications. Patient is reportedly stated I do not want to live like a pillow and just lay in bed. Family has requested an oncology consult to see if chemotherapy would be an option moving forward. If patient is too weak for chemotherapy, palliative measures will likely be elected. If patient is able to get chemotherapy, I anticipate they would want to start as soon as possible to see if this would affect his accumulation of malignant pleural fluid. TIME: 77 minutes of critical care time spent addressing patient's acute on chronic hypoxic respiratory failure, pleural effusion, A. fib with RVR, review of all data and collaboration with care team (6:30 AM to 7:30 AM, 9 AM to 10 AM) Code Visit Procedures: 52595 Critial Care Addl 30 Min 9xxxx: [id number] Critical care first hour
--- NOTE | 2019-07-02 07:27 | PCM.PN.HOSP ---
Patient Problems: Active and Suspected Problems (Last Reviewed 06/22/19 @ 15:38 by Cheri Vo) Acute respiratory failure with hypoxia and hypercapnia (Acute) Right lower lobe consolidation (Acute) Small cell carcinoma (Acute) History of coronary artery disease (Acute) Reason for Visit: Follow-up on respiratory failure. Subjective: Patient was seen and examined. He was initially on 7 L of oxygen. He went back on BiPAP again. Several family discussions have been held. Patient remains full code. Per electrical tests supervisor, family wants oncologist to weigh in on his prognosis. He has been having panic attacks. His Pleurx catheter drained about 1500 mls of fluid. Repeat chest x-ray shows improvement. Abdominal ultrasound is negative for ascites Objective: Physical exam: General: Alert, Oriented x3, Cooperative, - - in moderate respiratory distress, on Bipap HEENT: Atraumatic, PERRLA, EOMI, Normocephalic Oral: Moist Mucosa Neck: Supple Lungs: Diminished - absent breath sounds on the right side of lung Cardiovascular: Regular rate, Regular Rhythm, Normal S1, Normal S2, No murmurs Abdomen: Bowel Sounds Present, Soft, Non Tender, Non-Distended, No Hepato-splenomegaly Extremities: Edema - +2 bilaterally Skin: No rashes Musculoskeletal: No Tenderness to Palpation of Joints or Extremities Lymphatic: No Cervical, Supraclavicular, or Inguinal Adenopathy Neurological: Cranial nerves II-XII grossly intact, Neuro grossly intact Psych/Mental Status: Normal Affect, Appropriate Vitals/I&O's: Vital Signs Temp Pulse Resp BP Pulse Ox 97.7 F L 102 H 19 H 94/68 95 07/02/19 06:00 07/02/19 06:00 07/02/19 06:00 07/02/19 06:00 07/02/19 06:00 Oxygen Flow Rate (L/min) 15 Oxygen Delivery Method Bi-pap Weight: 96.8 kg Body Mass Index (BMI) 30.2 Intake and Output for Last 24 Hours 06/30/19 07/01/19 07/02/19 23:59 23:59 23:59 Intake Total 229.67 / 249.67 57.25 / 57.25 Output Total 1395 / 1395 410 / 410 Balance -1165.33 / -1145.33 -352.75 / -352.75 Laboratory Results 07/01/19 11:50: WBC 8.8, RBC 4.34 L, Hgb 13.4, Hct 42.6, MCV 98.2 H, MCH 30.9, MCHC 31.5 L, RDW Std Deviation 53.6 H, RDW Coeff of Jamie 14.9 H, Plt Count 134 L, MPV 10.3, Immature Gran % (Auto) 1.400 H, Neut % (Auto) 82.9 H, Lymph % (Auto) 8.7 L, [place] % (Auto) 6.3, Eos % (Auto) 0.2, Baso % (Auto) 0.5, Absolute Neuts (auto) 7.3, Absolute Lymphs (auto) 0.76 L, Nucleated RBC % 0 07/01/19 11:50: Sodium 143, Potassium 4.2, Chloride 106, Carbon Dioxide 34.0 H, Anion Gap 3 L, BUN 21 H, Creatinine 1.12, Estim Creat Clear Calc 65.44, Est GFR (MDRD) Af Amer 83, Est GFR (MDRD) Non-Af 68, BUN/Creatinine Ratio 18.8, Glucose 185 H, Calcium 8.8, Total Bilirubin 0.30, AST 20, ALT 29, Alkaline Phosphatase 61, Total Protein 6.1 L, Albumin 2.7 L, Globulin 3.4, Albumin/Globulin Ratio 0.8 L 07/01/19 11:50: Lactic Acid 1.7 07/01/19 12:11: Specimen Type ART, Sample Site L Radial, pH 7.36, Bicarbonate Actual 31.8 H, POC Total CO2 33, Base Excess 6 H, O2 Saturation 94 L, ABG pCO2 56.0 H, ABG pO2 76, Logan Test POS, O2 Delivery Device NRB Mask, Liter Flow 15.0, Blood Gas Notified Whom ED , Blood Gas Notified Time 1200 07/01/19 16:10: Miscellaneous Cytology Pending 07/01/19 19:12: Specimen Type ART, Sample Site L Radial, pH 7.42, Bicarbonate Actual 33.0 H, POC Total CO2 35, Base Excess 9 H, O2 Saturation 95, O2 % 80, ABG pCO2 50.7 H, ABG pO2 73 L, Logan Test POS, Respiration Rate 12, O2 Delivery Device Bi / C PAP, EPAP 6, IPAP 12, Blood Gas Notified Whom ICU MD, Blood Gas Notified Time 19007/01/19 22:39: POC Glucose 155 H 07/02/19 04:55: WBC 8.2, RBC 4.02 L, Hgb 12.3 L, Hct 39.0 L, MCV 97.0 H, MCH 30.6, MCHC 31.5 L, RDW Std Deviation 53.1 H, RDW Coeff of Jamie 14.9 H, Plt Count 118 L, MPV 10.0, Immature Gran % (Auto) 1.000 H, Neut % (Auto) 85.2 H, Lymph % (Auto) 7.5 L, [place] % (Auto) 6.1, Eos % (Auto) 0.0, Baso % (Auto) 0.2, Absolute Neuts (auto) 7.0, Absolute Lymphs (auto) 0.61 L, Nucleated RBC % 0 07/02/19 04:55: Sodium 143, Potassium 4.1, Chloride 104, Carbon Dioxide 34.0 H, Anion Gap 5, BUN 22 H, Creatinine 1.06, Estim Creat Clear Calc 67.09, Est GFR (MDRD) Af Amer 88, Est GFR (MDRD) Non-Af 73, BUN/Creatinine Ratio 20.8 H, Glucose 166 H, Calcium 8.3 L, Phosphorus 3.0, Total Bilirubin 0.30, AST 19, ALT 23, Alkaline Phosphatase 54, Total Protein 5.4 L, Albumin 2.2 L, Globulin 3.2, Albumin/Globulin Ratio 0.7 L 07/02/19 05:59: POC Glucose 146 H Current Medications Albuterol Sulfate (Ventolin Aerosols) 2.5 mg INHALATION Q2H PRN PRN PRN Reason: SOB/Wheezing Albuterol/Ipratropium (Duoneb) 3 ml INHALATION Q4HWA.RT CROW Last Admin: 07/02/19 07:19 Dose: 3 ml Documented by: Glucagon () 1 mg IM .X1 PRN PRN Reason: Hypoglycemia Heparin Sodium (Beef Lung) () 50 units IV UD PRN PRN Reason: R Port Heparin Flush Heparin Sodium (Porcine) (Heparin Na) 5,000 unit SC Q8 CROW Last Admin: 07/02/19 05:55 Dose: 5,000 unit Documented by: Sodium Chloride () 250 mls @ 100 mls/hr IV .Q2H30M PRN PRN Reason: Additional IVPB Infusion Levofloxacin (Levaquin Iv) 750 mg in 150 mls @ 100 mls/hr IV Q24 CROW Dextrose (Dextrose 10%-Water) 250 mls @ 999 mls/hr IV .Q16M PRN; Protocol PRN Reason: HYPOGLYCEMIA Diltiazem HCl 125 mg/ Dextrose 125 mls @ 5 mls/hr IV .Q25H CROW; Protocol Last Titration: 07/02/19 06:00 Dose: 0 mg/hr, 0 mls/hr Documented by: Lorazepam (Ativan) 0.5 mg IV Q6H PRN PRN PRN Reason: ANXIETY Last Admin: 07/01/19 19:43 Dose: 0.5 mg Documented by: Morphine Sulfate () 2 mg IV Q4H PRN PRN PRN Reason: Pain Score 6-10/10 Last Admin: 07/01/19 18:45 Dose: 2 mg Documented by: Sodium Chloride () 10 - 40 ml IV UD PRN PRN Reason: R [place] Flush Last Admin: 07/01/19 19:43 Dose: 20 ml Documented by: Sodium Chloride (0.9% Nacl (Sterile) Posiflush) 10 - 40 ml IV UD PRN PRN Reason: Port access or dressing change STROKE Vital Signs/Narrative: Vital Signs Temp Pulse Resp BP Pulse Ox 07/02/19 06:00 97.7 F L 102 H 19 H 94/68 95 07/02/19 05:00 97.7 F L 10 L 19 H 89/57 L 94 07/02/19 04:15 100 07/02/19 04:00 97.7 F L 100 17 88/57 L 95 07/02/19 03:45 103 H Medical Necessity - Tobacco Use Smoking Status: Former smoker Assessment/Plan All Active Problems (Last Reviewed 06/22/19 @ 15:38 by Cheri Vo) Acute respiratory failure with hypoxia and hypercapnia (Acute) Right lower lobe consolidation (Acute) Small cell carcinoma (Acute) History of coronary artery disease (Acute) Community-acquired pneumonia (Acute) Acute and chronic respiratory failure with hypoxia (Acute) Bradycardia (Resolved) Chest pain (Resolved) 73 year old M with past medical history of metastatic lung CA, on chemotherapy, with multiple admissions to the hospital with acute on chronic hypoxic respiratory failure comes in with progressive shortness of breath and cough 1. Acute on chronic respiratory failure secondary to progressive pleural effusion, lung CA, possible pneumonia Respiratory status remains the same. Patient currently is on BiPAP, on 8 L of oxygen at home Pleural VAC connected to suction; 1500 fluid drained, will continue on suction General surgery and security systems administrator consulted Patient and his family want aggressive treatment for now Oncology consulted to weigh in on prognosis 2. Possible Pneumonia, cultures are pending, no fevers, no leukocytosis on empiric Levaquin 3. CAD/paroxysmal atrial fibrillation/hyperlipidemia, continue on aspirin, Plavix, metoprolol, amiodarone, statin 4. 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 DVT prophylaxis with heparin subcu 6. Code status: Full code Code Visit Inpatient E&M: 79632 Subs Hosp L3
--- NOTE | 2019-07-02 08:00 | US_ITS ---
STUDY: ABDOMINAL ULTRASOUND -Limited for ascites REASON FOR VISIT: Male, 73 years old CHECK ABD FOR FLUID- ASCITES SURVEY ONLY TECHNIQUE: Ultrasound evaluation of the 4 quadrants was performed with real-time and static thompson-scale imaging. TECHNICAL QUALITY: Adequate. COMPARISON: None. FINDINGS: No abdominal ascites in any of the 4 quadrants. US/Abdomen Limited IMPRESSION: No abdominal ascites. Electronically Signed: Henrik Li MD ([place]) at 12:32 EST , Service support ,
--- NOTE | 2019-07-02 08:06 | PCM.PN.BLA ---
Progress Note I was consulted yesterday due to his hypoxemia. I returned his Pleurx catheter to continuous suction and his removed about 1300 cc of fluid. His chest x-ray this morning shows that there is great improvement in the effusion. Tawanda Anthony MD Pager: [facility] [address] [place] [address], [address] [place] [address] Office: [place] Vital Signs/Narrative: Vital Signs Temp Pulse Resp BP Pulse Ox 07/02/19 07:12 104 H 07/02/19 06:00 97.7 F L 102 H 19 H 94/68 95 07/02/19 05:00 97.7 F L 10 L 19 H 89/57 L 94 07/02/19 04:15 100
[2019-07-02] MEDS: levoFLOXacin IV 750 MG/150 ML BAG 100 MG IV (11:17)
[2019-07-02] MEDS: 0.9% Saline Lock 10 ML Syringe IV ×3 (12:43→20:04)
[2019-07-02] MEDS: LORazepam 2 MG/ML Syringe 0.5 MG IV ×2 (12:43→20:03)
--- NOTE | 2019-07-02 14:16 | CON.PCM_ITS ---
Subjective Date of Service:: 07/02/19 Chief Complaint: NSCLC, malignant pleural effusion History of Present Illness: Mr. 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 Treated with concurrent chemoradiation, 4 cycles cisplatin and dzfkwoqij06/18/2016 through 07/01/2016. Therapy was complicated by pancytopenia, DVT of the right upper extremity associated with the port, and radiation esophagitis. He had a [place] and went down to complete PCI. He had a PET CT scan on 09/28/2016 which showed new L hypermetabolic lesion and was referred for biopsy but the lesion resolved. PET/CT on 10/24/2018 demonstrated hypermetabolic activities in R upper lobe and mediastinum/R hilar area. CT guided bx of lung on 11/03/2018 showed non-small cell lung cancer, squamous histology. Stage IIIA(cT1b cN2 M0). He was considered a poor candidate for surgery or radiation. Thus, he began carboplatin and gemcitabine on 11/17/2018. Care complicated by neutropenic fever and pneumonia after cycle 1. Gemcitabine attenuated to 800 mg/m2 with cycle 2 and subsequent cycles. Further cycles complicated by thrombocytopenia and he was not able to receive the final C4D8 Gemzar because of persistent thrombocytopenia. On observation he developed R pleural effusion. Cytology from thoracentesis 05/30/19 showed atypical cells. Pleurx catheter was placed on 06/19/2019. The patient presented to [facility] emergency department on 07/01/2019 with complaints of increasing dyspnea at baseline was on 2 L of oxygen. However, spouse states they increased little by little to 8 L yesterday with no improvement. In the ED, sats 70% on 8L. Lactic acid within normal limits, afebrile. He was subsequently admitted to the intensive care unit for management of acute on chronic respiratory failure and empirically started on Levaquin. Blood cultures are pending. He has been on BiPAP with a short break earlier this morning. Pleurx in place, changed to continuous suction and has produced approx 1360 ml. Upon entering the room patient is sitting upright in bed resting with eyes closed surrounded by several family members. Patient is able to engage in conversation. States dyspnea was making him quite anxious however this is improved after nursing administered anxiolytic. Is experiencing low back pain rates 5-6 out of 10. Past Medical History: Chronic Problems (Last Reviewed 06/22/19 @ 15:38 by Cheri Vo) Pleural effusion (Chronic) PND (post-nasal drip) (Chronic) GERD (gastroesophageal reflux disease) (Chronic) History of DVT (deep vein thrombosis) (Chronic) H/O percutaneous transluminal coronary angioplasty (Chronic) PTCA/stent of the mid LAD, prox 1st diag, prox RCA 08/13/10; PTCA/BETO of the Ostial/Prox 1st diag 12/15/16 Hx of appendectomy (Chronic) Thrombocytopenia (Chronic) Anemia (Chronic) Pancytopenia (Chronic) Right upper lobe pulmonary nodule (Chronic) Non-small cell carcinoma of left lung, stage 3 (Chronic) Paroxysmal atrial fibrillation (Chronic) 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) PTCA/stent of the mid LAD, prox 1st diag, prox RCA 08/13/10; PTCA/BETO of the Ostial/Prox 1st diag 12/15/16 Long-term use of high-risk medication (Chronic) Primary small cell malignant neoplasm of lung, stage 3 (Chronic) Nocturnal hypoxia (Chronic) Radiation esophagitis (Chronic) HLD (hyperlipidemia) (Chronic) Small cell lung cancer (Chronic) History of coronary artery stent placement (Chronic) PTCA/stent of the mid LAD, prox 1st diag, prox RCA 08/13/10; PTCA/BETO of the Ostial/Prox 1st diag 12/15/16 Obesity (BMI 30-39.9) (Chronic) Smoking addiction (Chronic) COPD (chronic obstructive pulmonary disease) (Chronic) HTN (hypertension) (Chronic) Past Medical/Surgical History: Past Medical History - Most Recent Inpatient Visit Past Medical History Start: 07/01/19 14:22 Text: Status: Complete Freq: ONCE Protocol: Document 07/01/19 15:00 LRM (Rec: 07/01/19 16:41 LRM [id number]) BMI Required to complete PMH What is Patient's BMI 30.3 Past Medical History Unable History Recalled No Query Text:Pt Unable/Family Not Present Neurologic Medical History Hx Stroke/TIA No Hx Dementia/Alzheimer's No Hx Parkinson's Disease No Hx Seizures No Hx Multiple Sclerosis No Hx Migraines No Cardiac Medical History VTE Present on Admission No Hx of Deep Vein Thrombosis/VTE/PE Yes: clot near chemo port in Right shoulder Hx Hypertension Yes: controlled with med Hx Chest Pain/Angina Yes: only to cough with recent cold Hx Heart Attack No Hx Cardiac Surgery/Stents/Etc. Yes: x5 stents Hx Heart Failure No Hx Pacemaker/AICD No Hx Irregular Heartbeat and/or Afib Yes: afib/follows with whg/ last visit 06/2018 Hx Anticoagulant Therapy Yes: aspirin, plavix Query Text:(Coumadin, Aspirin, Plavix, Xarelto, etc.) Hx Pain in Legs when Walking/Leg Cramps No Respiratory Medical History Hx COPD Yes: hx lung cancer Hx Emphysema No Hx Smoking Yes: quit 3 yrs ago/ 2ppds 51 yrs Smoking Status Former smoker Hx Smoking Cessation Date 05/24/16 Hx Smoking Cessation Counseling No Hx Smoking Exposure No Hx Tobacco Use in last 12 months No Hx of Pipe Smoking No Hx Sleep Apnea No CPAP No Do you snore loudly (louder than talking No or can be heard through closed doors)? Do you often feel tired/ fatigued/ No sleepy during daytime? Has anyone observed you stop breathing No during sleep? STOP Results Negative GI Medical History Hx Ulcer No Hx Hepatitis No Hx Cirrhosis No Hx GI Bleed No Hx Unplanned Weight Loss No Genitourinary Medical History Indwelling Catheter in Place on Arrival/ No Admission Hx Renal Disease No Hx Dialysis No Musculoskeletal History Hx Arthritis No Hx Rheumatoid Arthritis No Endocrine Medical History Hx Diabetes No Hx Thyroid Disease No: abnormal lab at this time Hematologic Medical History Hx of Blood Transfusion No Hx of Transfusion in last 3 Months No Ever experience any problems with No transfusion(s)? Hx of Preganancy in last 3 Months N/A Nurse Filling Out Transfusion & [id number] Questions: Date: 07/01/19 Time: 16:41 Psycho/Social Medical History Hx Depression No Hx Anxiety No Hx Behavior Disorder No Hx Alcohol Use No Hx Substance Use No Other Medical History Hx Blood Disorders Yes: thrombocytopenia in the past Hx Anemia Yes: in the past Hx Cancer Yes: small cell lung cancer/ with radiation 2017/now with squamous cell Hx Drug Resistant Organism No Wound/Pressure Injury Present on Arrival No /Admission Query Text:If yes, chart assessment in Shift/Clinical Findings Central Line/PICC/VAD Present on Arrival No /Admission Antibiotics within last 7 days? No Risk for Readmission Number of Risk Factors 4 At Risk for Readmission Patient is At Risk For Readmission Patient is eligible for Call Back Y Past Medical History (Last Reviewed 06/22/19 @ 15:38 by Cheri Vo) PND (post-nasal drip) (Chronic) GERD (gastroesophageal reflux disease) (Chronic) History of DVT (deep vein thrombosis) (Chronic) Paroxysmal atrial fibrillation (Chronic) 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) Long-term use of high-risk medication (Chronic) Primary small cell malignant neoplasm of lung, stage 3 (Chronic) Nocturnal hypoxia (Chronic) Radiation esophagitis (Chronic) HLD (hyperlipidemia) (Chronic) Small cell lung cancer (Chronic) Obesity (BMI 30-39.9) (Chronic) Smoking addiction (Chronic) COPD (chronic obstructive pulmonary disease) (Chronic) HTN (hypertension) (Chronic) Bradycardia (Resolved) Chest pain (Resolved) Acute cystitis (Inactive) Adjustment and management of vascular access device (Inactive) Chemotherapy induced nausea and vomiting (Inactive) DVT of upper extremity (deep vein thrombosis) (Inactive) Encephalopathy (Inactive) Lightheadedness (Inactive) Pancytopenia (Inactive) Sepsis (Inactive) Past Surgical History (Last Reviewed 06/22/19 @ 15:38 by Cheri Vo) H/O percutaneous transluminal coronary angioplasty (Chronic) Hx of appendectomy (Chronic) History of coronary artery stent placement (Chronic) Maternal Family History: Family History (Last Reviewed 06/22/19 @ 15:38 by Cheri Vo) Father Heart disease Mother Cancer Brother Diabetes Son Atrial fibrillation Family History: Cancer - Lung cancer Paternal Family History: Family History (Last Reviewed 06/22/19 @ 15:38 by Cheri Vo) Father Heart disease Mother Cancer Brother Diabetes Son Atrial fibrillation Family History: Heart Disease Sibling Family History: Family History (Last Reviewed 06/22/19 @ 15:38 by Cheri Vo) Father Heart disease Mother Cancer Brother Diabetes Son Atrial fibrillation Family History: Diabetes - Social History Lives: Spouse/ Significant Other Smoking Status: Former smoker Alcohol: None Drugs: None Allergies/Adverse Reactions: Allergy/AdvReac Type Severity Reaction Status Date / Time No Known Allergies Allergy Verified 07/01/19 11:35 Review of Systems Constitutional:: Reports: Weakness, Fatigue. Denies: Fever, Sweats, Weight loss, Chills Cardiovascular:: Reports: Shortness of breath. Denies: Chest pain, Palpitations, Orthopnea, PND Respiratory: Reports: Cough, Shortness of Breath. Denies: Hemoptysis, Wheezing Gastrointestinal:: Denies: Abdominal pain, Nausea, Vomiting, Diarrhea, Constipation, Melena, Hematochezia Genitourinary: Denies: Dysuria, Hematuria, 15, Flank pain Musculoskeletal:: Reports: Back pain. Denies: Myalgia, Arthralgia Skin: Reports: Lesions. Denies: Rash, Skin Changes, Wounds Neurological:: Reports: Numbness, Tingling. Denies: Headache, Dizziness, Visual changes, Tinnitus, Hearing loss Psychiatric: Reports: Anxiety - see HPI. Denies: Depression, Homicidal Ideations, Suicidal Ideations Vital Signs Height 5 ft 11 in Weight: 213 lb 6.519 oz Weight in Pounds 213.4 lbs BMI 28.1 Pulse Ox 91 Temperature 98.8 F Pulse Rate 121 Respiratory Rate 30 Blood Pressure [BP] 84/64 Blood Pressure 89/65 Blood Pressure Position [BP] Semi-Fowlers Blood Pressure Position Semi-Fowlers - Physical Exam General: Alert, - - BIPAP removed, NC in place to engage in discussion HEENT: Atraumatic, PERRLA, EOMI, Normocephalic Oropharynx:: Negative for: Dry mucosa, Ulcerated lesions Neck:: Supple, Trachea midline. Negative for: JVD, bilateral Cardiac:: Regular rate, Regular rhythm, Normal S1, Normal S2. Negative for: Murmur Lungs: Rhonchi, Wheezes, Tachypneic, Increased respiratory effort, Excusion symmetrical Abdomen:: Bowel sounds x 4, Soft, Non-tender, Non-distended, Obese. Negative for: Hepatosplenomegaly Extremities:: Edema - BLE pitting. Negative for: Cyanosis Skin:: Negative for: Lesions, Rash, Petechiae, Ecchymosis Psychiatric:: Appropriate affect Lymphatics:: Negative for: Cervical lymphadenopathy, Supraclavicular lymphadenopathy, Axillary lymphadenopathy Laboratory Data: Laboratory Tests 07/02/19 07/02/19 07/02/19 Range/Units 05:59 04:55 04:55 WBC 8.2 (4.4-11.0) K/mm3 RBC 4.02 L (4.6-6.2) M/mm3 Hgb 12.3 L (13.0-16.5) g/dL Hct 39.0 L (40-54) % MCV 97.0 H (80-94) fL MCH 30.6 (27.0-32.0) pg MCHC 31.5 L (32-36) g/dL RDW Std Deviation 53.1 H (35.1-43.9) fl RDW Coeff of Jamie 14.9 H (11.6-14.6) % Plt Count 118 L (150-450) K/mm3 MPV 10.0 (6.2-12.0) fl Immature Gran % (Auto) 1.000 H (0.0-0.9) % Neut % (Auto) 85.2 H (47-70) % Lymph % (Auto) 7.5 L (19-41) % Isabella % (Auto) 6.1 (0-10) % Eos % (Auto) 0.0 (0-5) % Baso % (Auto) 0.2 (0-1) % Absolute Neuts (auto) 7.0 (2.0-7.7) X10^3/uL Absolute Lymphs (auto) 0.61 L (0.83-4.51) X10^3/uL Nucleated RBC % 0 (0-5) % Specimen Type Sample Site pH (7.35-7.45) Bicarbonate Actual (22-26) mmol/L POC Total CO2 mmol/L Base Excess (-2 to +2) mmol/L O2 Saturation (95-99) % O2 % ABG pCO2 (35-45) mmHg ABG pO2 (75-100) mmHG Logan Test Respiration Rate O2 Delivery Device EPAP IPAP Blood Gas Notified Whom Blood Gas Notified Time Sodium 143 (136-145) mmol/L Potassium 4.1 (3.5-5.1) mmol/L Chloride 104 (98-107) mmol/L Carbon Dioxide 34.0 H (21.0-32.0) mmol/L Anion Gap 5 (5-15) BUN 22 H (7-18) mg/dL Creatinine 1.06 (0.70-1.30) mg/dL Estim Creat Clear Calc 67.09 ml/min Est GFR (MDRD) Af Amer 88 (>60) mL/min Est GFR (MDRD) Non-Af 73 (>60) mL/min BUN/Creatinine Ratio 20.8 H (10-20) RATIO Glucose 166 H (74-106) mg/dL Calcium 8.3 L (8.5-10.1) mg/dL Phosphorus 3.0 (2.5-4.9) mg/dL Total Bilirubin 0.30 (0.20-1.00) mg/dL AST 19 (15-37) U/L ALT 23 (16-61) U/L Alkaline Phosphatase 54 (45-117) U/L Total Protein 5.4 L (6.4-8.2) g/dL Albumin 2.2 L (3.2-5.0) g/dL Globulin 3.2 (2.2-4.2) g/dL Albumin/Globulin Ratio 0.7 L (0.9-2.4) RATIO POC Glucose 146 H (70-110) mg/dL 07/01/19 07/01/19 Range/Units 22:39 19:12 WBC (4.4-11.0) K/mm3 RBC (4.6-6.2) M/mm3 Hgb (13.0-16.5) g/dL Hct (40-54) % MCV (80-94) fL MCH (27.0-32.0) pg MCHC (32-36) g/dL RDW Std Deviation (35.1-43.9) fl RDW Coeff of Jamie (11.6-14.6) % Plt Count (150-450) K/mm3 MPV (6.2-12.0) fl Immature Gran % (Auto) (0.0-0.9) % Neut % (Auto) (47-70) % Lymph % (Auto) (19-41) % Isabella % (Auto) (0-10) % Eos % (Auto) (0-5) % Baso % (Auto) (0-1) % Absolute Neuts (auto) (2.0-7.7) X10^3/uL Absolute Lymphs (auto) (0.83-4.51) X10^3/uL Nucleated RBC % (0-5) % Specimen Type ART Sample Site L Radial pH 7.42 (7.35-7.45) Bicarbonate Actual 33.0 H (22-26) mmol/L POC Total CO2 35 mmol/L Base Excess 9 H (-2 to +2) mmol/L O2 Saturation 95 (95-99) % O2 % 80 ABG pCO2 50.7 H (35-45) mmHg ABG pO2 73 L (75-100) mmHG Logan Test POS Respiration Rate 12 O2 Delivery Device Bi / C PAP EPAP 6 IPAP 12 Blood Gas Notified Whom ICU Blood Gas Notified Time 190 Sodium (136-145) mmol/L Potassium (3.5-5.1) mmol/L Chloride (98-107) mmol/L Carbon Dioxide (21.0-32.0) mmol/L Anion Gap (5-15) BUN (7-18) mg/dL Creatinine (0.70-1.30) mg/dL Estim Creat Clear Calc ml/min Est GFR (MDRD) Af Amer (>60) mL/min Est GFR (MDRD) Non-Af (>60) mL/min BUN/Creatinine Ratio (10-20) RATIO Glucose (74-106) mg/dL Calcium (8.5-10.1) mg/dL Phosphorus (2.5-4.9) mg/dL Total Bilirubin (0.20-1.00) mg/dL AST (15-37) U/L ALT (16-61) U/L Alkaline Phosphatase (45-117) U/L Total Protein (6.4-8.2) g/dL Albumin (3.2-5.0) g/dL Globulin (2.2-4.2) g/dL Albumin/Globulin Ratio (0.9-2.4) RATIO POC Glucose 155 H (70-110) mg/dL Diagnostic Data: Diagnostic Data Chest X-Ray 07/02/19 06:35 IMPRESSION: There is moderate decrease in size of the right pleural effusion. Chest tube is seen on the right side. Stable small left pleural effusion. Electronically Signed: Amy Huitron, at 8:32 EST Tel , Service support , Abdomen Ultrasound 07/02/19 08:00 IMPRESSION: No abdominal ascites. Electronically Signed: Henrik Li MD ([place]) at 12:32 EST , Service support , Assessment and Plan Mr. Anders is a very pleasant 73 year old M treated for limited stage SCLC in 2017 and NSCLC, squamous histology in 2019, admitted to [facility] intensive care unit for management of acute on chronic hypoxic respiratory failure after presenting to ED with c/o progressive dyspnea and cough. 1. NSCLC with progressive disease- Reviewed most recent CT chest obtained 06/14/19-overall report demonstrated stability of mass of right hilum and kashif- hilar regions of the right upper, middle and lower lobes with compression of bronchial branches and pulmonary venous branches and stability of mediastinal and left hilar lymphadenopathy. However development of a malignant pleural effusion is indicative of progressive disease. Engaged in a lengthy conversation about treatment options which would include weekly paclitaxel versu s immunotherapy. Unfortunately, the patient is not a candidate for pursuing additional chemotherapy secondary to functional decline and current respiratory state. He is also not a candidate for immunotherapy as it may take 8 to 12 weeks to experience the therapeutic benefit of immunotherapy. Advised referral for palliative medicine to discuss palliative interventions vs. hospice care. Adequate time was allotted for questions and all the patient's and family's questions/concerns were addressed to their satisfaction. 2. Pleural effusion- Pleural fluid from thoracentesis 05/30/19 showed atypical cells, suspicious for malignancy. Infection unlikely as he remains afebrile, CBC shows WBC WNL. Pleurx connected to continuous suction has produced approximately 1360 ml. Rhonchi and wheezes present on exam. 3. H/o Limited stage SCLC- Complicates the care. Case was discussed with Dr. Ayon, who is in agreement with aforementioned plan. Moon Mo, MSN, DIGITAL ACCOUNT EXECUTIVE, AOCNP Medications: Prescriptions This Visit Medication Instructions Recorded Acetylcysteine 2 ml INHALATION Q4H 07/01/19 Amiodarone HCl [Cordarone] 100 mg PO DAILY 07/01/19 Furosemide 40 mg PO DAILY 07/01/19 Ipratropium/Albuterol Sulfate 3 ml INHALATION Q6HWA.RT 07/01/19 [Duoneb] Metoprolol Tartrate [Lopressor 50 mg PO BID 07/01/19 (beta darius)] Nitroglycerin 0.4 mg SUBLINGUAL PRN PRN 07/01/19 Medications Added to Medication List This Visit Category Date Time Status levoFLOXacin IV [Levaquin IV] Med 07/02/19 10:00 Active 750 mg in 150 ml IV Q24 Primary Care Provider: Rogelio Green DO Referring Provider: Elina Berrios MD - Problem List (1) Squamous cell carcinoma lung Status: Acute (2) Small cell lung cancer Status: Chronic (3) Pleural effusion Status: Chronic
[2019-07-02] MEDS: Morphine 2 MG/ML Syringe IV (15:43)
[2019-07-03] VITALS (18 sets, daily range): BP systolic 0–125; BP diastolic 0–85; PULSE 0–140; RESP 0–38; TEMP -17.7–37.3; O2SAT 89–92
[2019-07-03] MEDS: LORazepam 2 MG/ML Syringe 0.5 MG IV ×6 (02:40→18:09)
[2019-07-03] MEDS: 0.9% Saline Lock 10 ML Syringe IV ×3 (02:40→03:58)
--- NOTE | 2019-07-03 03:10 | EKG12_ITS ---
Test Reason : DYSRHYTHMIA Blood Pressure : / mmHG Vent. Rate : 094 BPM Atrial Rate : 094 BPM P-R Int : 166 ms QRS Dur : 096 ms QT Int : 380 ms P-R-T Axes : 013 -14 123 degrees QTc Int : 475 ms Normal sinus rhythm T wave abnormality, consider lateral ischemia Prolonged QT Abnormal ECG Confirmed by ELEAZAR RODRIGUEZ, NIRMAL ([id number]), assignment editor NIKITA HELTON ([id number]) on 07/04/2019 9:58:20 AM Referred By: Elina Berrios Confirmed By:NIRMAL BUSH MD
[2019-07-03] MEDS: dilTIAZem 25 MG/5 ML Vial 10 MG IV BOLUS (03:20)
--- NOTE | 2019-07-03 03:41 | NURSING ---
Pt HR had been Sinus Tachycardia with rate in 120's until 02:00 when repositioning pt, and HR increased to Sinus Tachycardia with rate in the 130's for an hour. Contacted hospitalist to report same. Order for Cardizem one time dose received. Before administration could be given, pt converted to a-fib RVR with HR from 150's-170's. Administered Cardizem, as ordered. currently, HR is 130-140. Nurse contacted to report changes in pt. She is coming in to sit with pt in attempt to keep pt calm. Nurse will restart Cardizem gtt as order remains current.
[2019-07-03] MEDS: Ipratropium/Albuterol Sulfate 3 ML AMPUL.NEB INHALATION ×3 (03:46→11:12)
[2019-07-03] MEDS: Morphine 2 MG/ML Syringe IV ×4 (03:58→18:10)
--- NOTE | 2019-07-03 04:06 | CPS ---
increased bipap settings to 18/9 and 65%-nurse aware
[2019-07-03 04:24] LABS: Absolute Lymphocyte Count 0.66 X10^3/uL (0.83-4.51); Absolute Neutrophil Count 8.5 X10^3/uL (2.0-7.7); Basophil# 0.03 X10^3/uL; Basophil% 0.3 % (0-1); Eosinophil# 0.01 X10^3/uL; Eosinophils% 0.1 % (0-5); Hematocrit 43.4 % (40-54); Hemoglobin 13.4 g/dL (13.0-16.5); Lymphocyte # 0.66 X10^3/ul (4.0); Lymphocyte % 6.5 % (19-41); Mean Corp Hgb Conc 30.9 g/dL (32-36); Mean Corpuscular Hgb 29.8 pg (27.0-32.0); Mean Corpuscular Volume 96.7 fL (80-94); Mean Platelet Vol. 10.4 fl (6.2-12.0); Monocyte# 0.78 X10^3/uL; Monocyte% 7.7 % (0-10); NRBC Flagged by Analyzer 0 % (0-5); Neutrophil # 8.54 X10^3/uL (2.7-7.7); Neutrophil % 84.4 % (47-70); Platelet Count 134 K/mm3 (150-450); RBC Distribution Width CV 15.2 % (11.6-14.6); RBC Distribution Width SD 54.1 fl (35.1-43.9); Red Blood Count 4.49 M/mm3 (4.6-6.2); White Blood Count 10.1 K/mm3 (4.4-11.0)
[2019-07-03 04:39] LABS: Albumin, Serum 2.2 g/dL (3.2-5.0); BUN 24 mg/dL (7-18); BUN/Creat Ratio 20.5 RATIO (10-20); Calcium,Total 8.7 mg/dL (8.5-10.1); Chloride 102 mmol/L (98-107); Creatinine, Serum 1.17 mg/dL (0.70-1.30); EST Glomerular Filtration Rate 65 mL/min (>60); Est Glom Filt Rate - Afr Amer 79 mL/min (>60); Estimated Creatinine Clearance 60.78 ml/min; Glucose 178 mg/dL (74-106); Phosphorus 2.8 mg/dL (2.5-4.9); Potassium 4.3 mmol/L (3.5-5.1); Sodium Level 139 mmol/L (136-145)
--- NOTE | 2019-07-03 06:42 | PCM.PN.INT ---
Subjective: The patient was seen and examined at the bedside this morning. Events from the last 24 hours have been reviewed. The patient is well known from the outpatient pulmonary clinic and recent hospital admissions. The patient has progressive underlying lung cancer with malignant pleural effusions, which necessitated Pleurx catheter placement previously. He was readmitted on July 01 with recurrent respiratory failure. The patient was reevaluated by the oncology service yesterday and not felt to be a candidate for further chemo therapy or immunotherapy due to functional decline. The patient has been unable to be weaned from any form of noninvasive positive pressure ventilatory support. I personally met with the patient, his and daughter at the bedside this morning. The patient continues to have a great deal of anxiety, air hunger and shortness of breath. He appears uncomfortable and restless. I explained to the patient and his family that his current respiratory symptoms are a manifestation of underlying disease progression. At this time, they are interested in pursuing a referral to hospice care. His CODE STATUS was updated to DNR CCA without intubation, with plans for eventual initiation of comfort care measures, once hospice care has evaluated the patient. Objective: The patient's most recent lab work, culture data and imaging studies have all been personally reviewed. General: - - Appears quite distressed on BiPAP therapy. HEENT: PERRLA, Normocephalic Oral: Dry Mucosa Neck: Supple, No Nodes, Trachea Midline Lungs: - - There is globally diminished air movement bilaterally with associated wheezes and tachypnea. The patient is unable to speak in sentences and does have accessory muscle use. Cardiovascular: Normal S1, Normal S2, No murmurs, Tachycardic Abdomen: Bowel Sounds Present, Soft, Non Tender, Obese Extremities: No clubbing, No cyanosis, Edema Skin: No breakdown Musculoskeletal: No Tenderness to Palpation of Joints or Extremities Lymphatic: No Cervical, Supraclavicular, or Inguinal Adenopathy Neurological: Neuro grossly intact Psych/Mental Status: Anxious, Restless Vital Signs Temp Pulse Resp BP Pulse Ox 98.9 F 136 H 31 H 111/76 90 07/03/19 06:00 07/03/19 06:00 07/03/19 06:00 07/03/19 06:00 07/03/19 06:00 Oxygen Flow Rate (L/min) 8 Oxygen Delivery Method Bi-pap Weight: 213 lb 6.519 oz Body Mass Index (BMI) 30.2 Intake and Output for Last 24 Hours 07/01/19 07/02/19 07/03/19 23:59 23:59 23:59 Intake Total 229.67 / 249.67 267.25 / 267.25 Output Total 1395 / 1395 1315 / 1315 Balance -1165.33 / -1145.33 -1047.75 / -1047.75 Labs (Last 48 Hours) 07/01/19 07/01/19 07/01/19 11:50 11:50 11:50 WBC 8.8 RBC 4.34 L Hgb 13.4 Hct 42.6 MCV 98.2 H MCH 30.9 MCHC 31.5 L RDW Std Deviation 53.6 H RDW Coeff of Jamie 14.9 H Plt Count 134 L MPV 10.3 Immature Gran % (Auto) 1.400 H Neut % (Auto) 82.9 H Lymph % (Auto) 8.7 L [place] % (Auto) 6.3 Eos % (Auto) 0.2 Baso % (Auto) 0.5 Absolute Neuts (auto) 7.3 Absolute Lymphs (auto) 0.76 L Nucleated RBC % 0 Specimen Type Sample Site pH Bicarbonate Actual POC Total CO2 Base Excess O2 Saturation O2 % ABG pCO2 ABG pO2 Logan Test Respiration Rate O2 Delivery Device Liter Flow EPAP IPAP Blood Gas Notified Whom Blood Gas Notified Time Sodium 143 Potassium 4.2 Chloride 106 Carbon Dioxide 34.0 H Anion Gap 3 L BUN 21 H Creatinine 1.12 Estim Creat Clear Calc 65.44 Est GFR (MDRD) Af Amer 83 Est GFR (MDRD) Non-Af 68 BUN/Creatinine Ratio 18.8 Glucose 185 H Lactic Acid 1.7 Calcium 8.8 Phosphorus Total Bilirubin 0.30 AST 20 ALT 29 Alkaline Phosphatase 61 Total Protein 6.1 L Albumin 2.7 L Globulin 3.4 Albumin/Globulin Ratio 0.8 L Miscellaneous Cytology POC Glucose 07/01/19 07/01/19 07/01/19 12:11 16:10 19:12 WBC RBC Hgb Hct MCV MCH MCHC RDW Std Deviation RDW Coeff of Jamie Plt Count MPV Immature Gran % (Auto) Neut % (Auto) Lymph % (Auto) [place] % (Auto) Eos % (Auto) Baso % (Auto) Absolute Neuts (auto) Absolute Lymphs (auto) Nucleated RBC % Specimen Type ART ART Sample Site L Radial L Radial pH 7.36 7.42 Bicarbonate Actual 31.8 H 33.0 H POC Total CO2 33 35 Base Excess 6 H 9 H O2 Saturation 94 L 95 O2 % 80 ABG pCO2 56.0 H 50.7 H ABG pO2 76 73 L Logan Test POS POS Respiration Rate 12 O2 Delivery Device NRB Mask Bi / C PAP Liter Flow 15.0 EPAP 6 IPAP 12 Blood Gas Notified Whom ED ICU Blood Gas Notified Time 1200 1905 Sodium Potassium Chloride Carbon Dioxide Anion Gap BUN Creatinine Estim Creat Clear Calc Est GFR (MDRD) Af Amer Est GFR (MDRD) Non-Af BUN/Creatinine Ratio Glucose Lactic Acid Calcium Phosphorus Total Bilirubin AST ALT Alkaline Phosphatase Total Protein Albumin Globulin Albumin/Globulin Ratio Miscellaneous Cytology Pending POC Glucose 07/01/19 07/02/19 07/02/19 22:39 04:55 04:55 WBC 8.2 RBC 4.02 L Hgb 12.3 L Hct 39.0 L MCV 97.0 H MCH 30.6 MCHC 31.5 L RDW Std Deviation 53.1 H RDW Coeff of Jamie 14.9 H Plt Count 118 L MPV 10.0 Immature Gran % (Auto) 1.000 H Neut % (Auto) 85.2 H Lymph % (Auto) 7.5 L [place] % (Auto) 6.1 Eos % (Auto) 0.0 Baso % (Auto) 0.2 Absolute Neuts (auto) 7.0 Absolute Lymphs (auto) 0.61 L Nucleated RBC % 0 Specimen Type Sample Site pH Bicarbonate Actual POC Total CO2 Base Excess O2 Saturation O2 % ABG pCO2 ABG pO2 Logan Test Respiration Rate O2 Delivery Device Liter Flow EPAP IPAP Blood Gas Notified Whom Blood Gas Notified Time Sodium 143 Potassium 4.1 Chloride 104 Carbon Dioxide 34.0 H Anion Gap 5 BUN 22 H Creatinine 1.06 Estim Creat Clear Calc 67.09 Est GFR (MDRD) Af Amer 88 Est GFR (MDRD) Non-Af 73 BUN/Creatinine Ratio 20.8 H Glucose 166 H Lactic Acid Calcium 8.3 L Phosphorus 3.0 Total Bilirubin 0.30 AST 19 ALT 23 Alkaline Phosphatase 54 Total Protein 5.4 L Albumin 2.2 L Globulin 3.2 Albumin/Globulin Ratio 0.7 L Miscellaneous Cytology POC Glucose 155 H 07/02/19 07/03/19 07/03/19 05:59 04:05 04:05 WBC 10.1 RBC 4.49 L Hgb 13.4 Hct 43.4 MCV 96.7 H MCH 29.8 MCHC 30.9 L RDW Std Deviation 54.1 H RDW Coeff of Jamie 15.2 H Plt Count 134 L MPV 10.4 Immature Gran % (Auto) 1.000 H Neut % (Auto) 84.4 H Lymph % (Auto) 6.5 L [place] % (Auto) 7.7 Eos % (Auto) 0.1 Baso % (Auto) 0.3 Absolute Neuts (auto) 8.5 H Absolute Lymphs (auto) 0.66 L Nucleated RBC % 0 Specimen Type Sample Site pH Bicarbonate Actual POC Total CO2 Base Excess O2 Saturation O2 % ABG pCO2 ABG pO2 Logan Test Respiration Rate O2 Delivery Device Liter Flow EPAP IPAP Blood Gas Notified Whom Blood Gas Notified Time Sodium 139 Potassium 4.3 Chloride 102 Carbon Dioxide 32.0 Anion Gap BUN 24 H Creatinine 1.17 Estim Creat Clear Calc 60.78 Est GFR (MDRD) Af Amer 79 Est GFR (MDRD) Non-Af 65 BUN/Creatinine Ratio 20.5 H Glucose 178 H Lactic Acid Calcium 8.7 Phosphorus 2.8 Total Bilirubin AST ALT Alkaline Phosphatase Total Protein Albumin 2.2 L Globulin Albumin/Globulin Ratio Miscellaneous Cytology POC Glucose 146 H Clinical Impression(s) from Imaging Studies Chest X-Ray 07/01/19 11:48 IMPRESSION: 1. Unfavorable change. Worsening consolidation of the right lung base suggesting pulmonary edema, pneumonia or worsening neoplasm (patient has history of lung cancer), the latter somewhat unlikely given short interval change. Electronically Signed: Henrik Li MD ([place]) at 12:36 EST , Service support , Chest X-Ray 07/02/19 06:35 IMPRESSION: There is moderate decrease in size of the right pleural effusion. Chest tube is seen on the right side. Stable small left pleural effusion. Electronically Signed: Amy Huitron, at 8:32 EST Tel , Service support , Abdomen Ultrasound 07/02/19 08:00 IMPRESSION: No abdominal ascites. Electronically Signed: Henrik Li MD ([place]) at 12:32 EST , Service support , Medical Necessity - Tobacco Use Smoking Status: Former smoker Assessment/Plan All Active Problems (Last Reviewed 06/22/19 @ 15:38 by Cheri Vo) Acute respiratory failure with hypoxia and hypercapnia (Acute) Right lower lobe consolidation (Acute) Small cell carcinoma (Acute) History of coronary artery disease (Acute) Squamous cell carcinoma lung (Acute) Community-acquired pneumonia (Acute) Acute and chronic respiratory failure with hypoxia (Acute) Bradycardia (Resolved) Chest pain (Resolved) RECOMMENDATIONS: 1. CODE STATUS updated to DNR CCA without intubation. 2. Consultation to hospice care services, with plans for eventual initiation of comfort care measures. 3. Continue BiPAP as ordered. 4. Continue as needed Ativan and morphine sulfate for control of respiratory symptoms. IMPRESSIONS: 1. Acute on chronic hypoxemic respiratory failure The patient's current respiratory status appears to be secondary to underlying disease progression. This was discussed with the patient and his family at length at the bedside this morning. He has also been reevaluated by oncology, who indicated that no further treatment would be available given the patient's poor functional status. I spent approximately 30 minutes in [id number] discussion with the patient and his family at the bedside discussing future goals of care. Following an extensive discussion about the possibilities for moving forward, they have elected to pursue initiation of comfort care measures. Therefore, a referral will be placed to hospice care. The patient will be continued on BiPAP for now as tolerated, with plans for eventual transition to comfort care measures. 2. Personal history of both non-small cell and small cell lung cancer The patient has been followed by oncology on an outpatient basis. He does appear to have underlying disease progression and is not a candidate for chemotherapy or immunotherapy, based upon his functional status. Prognosis is poor overall. 3. History of coronary artery disease/paroxysmal atrial fibrillation with RVR/hyperlipidemia Complicates care, management, recovery and prognosis. Continue home medications as tolerated, pending transition in goals of care to comfort care measures. TIME: 38 minutes of critical care time, independent of procedures, was spent addressing the patient's acute on chronic hypoxemic respiratory failure, progressive metastatic lung cancer, coronary artery disease, paroxysmal atrial fibrillation, review of all data, CODE STATUS discussion and goals of care coordination with the treatment team. ([id number]) Code Visit 9xxxx: [id number] Critical care first hour
[2019-07-03] MEDS: Heparin Injection (Vial) 5,000 UNIT/ML VIAL 5000 UNIT SC (06:59)
--- NOTE | 2019-07-03 08:00 | NURSING ---
deferred pending hospice consult and family wishes
--- NOTE | 2019-07-03 08:12 | PN_ITS ---
Patient Problems: Active and Suspected Problems (Last Reviewed 06/22/19 @ 15:38 by Cheri Vo) Acute respiratory failure with hypoxia and hypercapnia (Acute) Right lower lobe consolidation (Acute) Small cell carcinoma (Acute) History of coronary artery disease (Acute) Squamous cell carcinoma lung (Acute) Reason for Visit: Acute on chronic respiratory failure. On BiPAP Vitals/I&O's: Vital Signs Temp Pulse Resp BP Pulse Ox 98.9 F 135 H 35 H 111/76 90 07/03/19 06:00 07/03/19 06:46 07/03/19 06:46 07/03/19 06:00 07/03/19 06:46 Oxygen Flow Rate (L/min) 8 Oxygen Delivery Method Bi-pap Weight: 213 lb 6.519 oz Body Mass Index (BMI) 30.2 Intake and Output for Last 24 Hours 07/01/19 07/02/19 07/03/19 23:59 23:59 23:59 Intake Total 229.67 / 249.67 267.25 / 267.25 Output Total 1395 / 1395 1315 / 1315 250 / 250 Balance -1165.33 / -1145.33 -1047.75 / -1047.75 -250 / -250 General: Cooperative, Lethargic HEENT: Atraumatic, PERRLA, EOMI, Normocephalic Oral: Dry Mucosa Neck: Supple, No JVD, Negative Carotid Bruits Lungs: Rhonchi, Short of Breath, Tachypneic, Using Accessory Muscles, - - On BiPAP Right-sided chest tube. Cardiovascular: Normal S1, Normal S2, No murmurs, Tachycardic Abdomen: Bowel Sounds Present, Soft, Non Tender, Non-Distended Laboratory Results 07/03/19 04:05: WBC 10.1, RBC 4.49 L, Hgb 13.4, Hct 43.4, MCV 96.7 H, MCH 29.8, MCHC 30.9 L, RDW Std Deviation 54.1 H, RDW Coeff of Jamie 15.2 H, Plt Count 134 L, MPV 10.4, Immature Gran % (Auto) 1.000 H, Neut % (Auto) 84.4 H, Lymph % (Auto) 6.5 L, [place] % (Auto) 7.7, Eos % (Auto) 0.1, Baso % (Auto) 0.3, Absolute Neuts (auto) 8.5 H, Absolute Lymphs (auto) 0.66 L, Nucleated RBC % 0 07/03/19 04:05: Sodium 139, Potassium 4.3, Chloride 102, Carbon Dioxide 32.0, BUN 24 H, Creatinine 1.17, Estim Creat Clear Calc 60.78, Est GFR (MDRD) Af Amer 79, Est GFR (MDRD) Non-Af 65, BUN/Creatinine Ratio 20.5 H, Glucose 178 H, Calcium 8.7, Phosphorus 2.8, Albumin 2.2 L Current Medications Albuterol Sulfate (Ventolin Aerosols) 2.5 mg INHALATION Q2H PRN PRN PRN Reason: SOB/Wheezing Albuterol/Ipratropium (Duoneb) 3 ml INHALATION Q4HWA.RT [facility] Last Admin: 07/03/19 06:46 Dose: 3 ml Documented by: Glucagon () 1 mg IM .X1 PRN PRN Reason: Hypoglycemia Heparin Sodium (Beef Lung) () 50 units IV UD PRN PRN Reason: R Port Heparin Flush Heparin Sodium (Porcine) (Heparin Na) 5,000 unit SC Q8 CROW Last Admin: 07/03/19 06:59 Dose: 5,000 unit Documented by: Sodium Chloride () 250 mls @ 100 mls/hr IV .Q2H30M PRN PRN Reason: Additional IVPB Infusion Levofloxacin (Levaquin Iv) 750 mg in 150 mls @ 100 mls/hr IV Q24 CROW Last Infusion: 07/02/19 14:28 Dose: Infused Documented by: Dextrose (Dextrose 10%-Water) 250 mls @ 999 mls/hr IV .Q16M PRN; Protocol PRN Reason: HYPOGLYCEMIA Diltiazem HCl 125 mg/ Dextrose 125 mls @ 5 mls/hr IV .Q25H [facility]; Protocol Last Titration: 07/02/19 06:00 Dose: 0 mg/hr, 0 mls/hr Documented by: Lorazepam (Ativan) 0.5 mg IV Q6H PRN PRN PRN Reason: ANXIETY Last Admin: 07/03/19 02:40 Dose: 0.5 mg Documented by: Morphine Sulfate () 2 mg IV Q4H PRN PRN PRN Reason: Pain Score 6-10/10 Last Admin: 07/03/19 03:58 Dose: 2 mg Documented by: Sodium Chloride () 10 - 40 ml IV UD PRN PRN Reason: R [place] Flush Last Admin: 07/03/19 03:58 Dose: 10 ml Documented by: Sodium Chloride (0.9% Nacl (Sterile) Posiflush) 10 - 40 ml IV UD PRN PRN Reason: Port access or dressing change STROKE Vital Signs/Narrative: Vital Signs Temp Pulse Resp BP Pulse Ox 07/03/19 06:46 135 H 28 H 90 07/03/19 06:00 98.9 F 136 H 31 H 111/76 90 07/03/19 05:00 98.9 F 136 H 34 H 105/60 91 Medical Necessity - Tobacco Use Smoking Status: Former smoker Assessment/Plan All Active Problems (Last Reviewed 06/22/19 @ 15:38 by Cheri Vo) Acute respiratory failure with hypoxia and hypercapnia (Acute) Right lower lobe consolidation (Acute) Small cell carcinoma (Acute) History of coronary artery disease (Acute) Squamous cell carcinoma lung (Acute) Community-acquired pneumonia (Acute) Acute and chronic respiratory failure with hypoxia (Acute) Bradycardia (Resolved) Chest pain (Resolved) This is a 73 year old M with past medical history of metastatic lung CA, non- small cell lung cancer office, systolic, stage III A on CT-guided lung biopsy on 11/21/2018. Prior to that, it was documented patient in small cell lung cancer limited disease on March 2016 and had 4 cycles of chemotherapy in 2016 by oncologist. Patient had recurrent admission last few months with acute on chronic hypoxic respiratory failure and pneumonia. 1. Acute on chronic respiratory failure secondary to progressive malignant pleural effusion, lung CA, small cell and non-small cell lung cancer status post chemotherapy with history of postoperative pneumonia and concern of present pneumonia: Patient cannot be weaned off BiPAP. Patient CODE STATUS is DNR CC arrest without intubation. Referred to hospice. On morphine and Ativan as needed for control of tachypnea, shortness of breath and air hunger. Patient had 890 mL on 07/02, 250 mill serous pleural fluid since morning 2. Possible Pneumonia, with history of pneumonia in recent past: Cultures are pending, no fevers, no leukocytosis on empiric Levaquin 3. CAD/paroxysmal atrial fibrillation/hyperlipidemia, continue on aspirin, Plavix, metoprolol, amiodarone, statin 4. 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 DVT prophylaxis with heparin subcu 6. Code status: Advertising Intern discussed the CODE STATUS with power of traffic law attorney. Currently DNR CC arrest without intubation. Family also interested in pursuing referral to hospice care. Code Visit Inpatient E&M: 04142 Subs Hosp L3
--- NOTE | 2019-07-03 09:22 | CASEMGMT ---
Addendum entered by Patti Fregoso 07/03/19 13:04: Family and pt did not sign w/hospice. SW remains available for support to family. DMITRI Claudio Original Note: Hospice has been called and will be here shortly to see pt and meet w/family. SW spoke w/family briefly in the room, offered support. SW remains available to family for supportive needs. DMITRI Claudio
--- NOTE | 2019-07-03 10:30 | NURSING ---
lengthy disc w/pt's and his 4 children re hospice, their disc w/Dr. Taylor on Wednesday, the pt's cont requests to take off bipap/ice/drink. Also much education re end of life. Many questions answered. Dr. Das notified family's wishes to make pt a DNRCC.
--- NOTE | 2019-07-03 19:55 | NURSING ---
Family to nurses station to report pt not breathing. Two facialist of apical heart tones, absent. PEA on monitor. Asystole at 19:54. Strip obtained. Family at bedside. Coordinator and tractor operator battery notified. Dr. Dos Santos notified and will sign certificate.
--- NOTE | 2019-07-03 21:24 | NURSING ---
All tubes removed, dressings applied. skilled nursing called and post mortem care provided. Pt placed in body bag and to morgue. [facility] has released body due to metastatic CA. End User Support Specialist has been notified.
--- NOTE | 2019-07-04 07:21 | EXP.PCM_ITS ---
Preliminary Cause of Acute on chronic hypoxic respiratory failure Date of Admission: 07/01/19 Date of : 07/03/19 - Principle Diagnosis Acute on chronic hypoxic respiratory failure Non-small cell and small cell lung cancer not a candidate for chemotherapy no therapy based upon functional status Problem List: Coronary artery disease, paroxysmal A. fib with RVR, dyslipidemia, chronic pleural effusion history of pneumonia/postobstructive pneumonia chronic anemia, thrombocytopenia radiation esophagitis, hypertension and chronic ex smoker, cigarette smoking Hospital Course This is a 73 year old M with past medical history of metastatic lung CA, non- small cell lung cancer office, systolic, stage III A on CT-guided lung biopsy on 11/21/2018. Prior to that, it was documented patient in small cell lung cancer limited disease on March 2016 and had 4 cycles of chemotherapy in 2015 by oncologist. Patient had recurrent admission last few months with acute on chronic hypoxic respiratory failure and pneumonia. 1. Acute on chronic respiratory failure secondary to progressive malignant pleural effusion, lung CA, small cell and non-small cell lung cancer status post chemotherapy with history of postoperative pneumonia and concern of present pneumonia: Patient cannot be weaned off BiPAP. Patient CODE STATUS is DNR CC arrest without intubation. Referred to hospice. On morphine and Ativan as needed for control of tachypnea, shortness of breath and air hunger. Patient had 890 mL on 07/02, 250 mill serous pleural fluid since morning Later on, family refused for hospice care. But orders were put in for morphine and Ativan q. 1 hourly for relief of air hunger, shortness of breath and restlessness. Patient was made comfortable. Patient at 1954 hrs. on 07/03/2019 2. Possible Pneumonia, with history of pneumonia in recent past: Blood cultures negative for 48 hours. No fevers, no leukocytosis on empiric Levaquin 3. CAD/paroxysmal atrial fibrillation/hyperlipidemia, continue on aspirin, Eddie vix, metoprolol, amiodarone, statin 4. Small cell and non-small cell lung CA, was on chemotherapy immunotherapy: Patient was seen by an oncologist and not a candidate for immunotherapy or chemotherapy secondary to poor performance status and shortness of breath. 5. DVT prophylaxis with heparin subcu 6. Code status: Cattle Brander discussed the CODE STATUS with power of verification manager. Currently DNR CC arrest without intubation. Patient was made comfortable. Patient refused to change the status to hospice care. Code Visit Please cancel the billing charge for progress note on the same date Inpatient E&M: 45724 Disch Hosp
== END 2019-07-03 19:54 | DRG 180 ==
LOC: ED 12:58 → ICU 13:56
PROVIDERS: Surgery; Admitting Provider Internal Medicine; Emergency Provider Emergency Medicine; Family Provider Family Medicine; PCP Family Medicine; Referring Provider Internal Medicine; Visit Provider Internal Medicine
DX: C34.91 Malignant neoplasm of unspecified part of right bronchus or lung (principal); J96.21 Acute and chronic respiratory failure with hypoxia; J18.9 Pneumonia, unspecified organism; C79.9 Secondary malignant neoplasm of unspecified site; J91.0 Malignant pleural effusion; Z99.81 Dependence on supplemental oxygen; I25.10 Atherosclerotic heart disease of native coronary artery without angina pectoris; E78.5 Hyperlipidemia, unspecified; I48.0 Paroxysmal atrial fibrillation; Z79.82 Long term (current) use of aspirin; Z79.02 Long term (current) use of antithrombotics/antiplatelets; Z95.5 Presence of coronary angioplasty implant and graft; Z86.718 Personal history of other venous thrombosis and embolism; Z87.891 Personal history of nicotine dependence; Z66 Do not resuscitate; Z87.01 Personal history of pneumonia (recurrent); J44.9 Chronic obstructive pulmonary disease, unspecified
CPT/HCPCS: 36591; 36600; 71045; 76705; 80053; 80069; 82803; 82962; 83605; 84100; 85025; 87040; 88108; 88305; 88313; 88341; 88342; 93005; 94002; 94003; 94640; 97162; 97165; 97802; 99251; 99285; J7050; A4216; G0463